=== PATIENT | female | born 1995 | race Caucasian/White ===

== ENCOUNTER 2023-06-17 10:45 | Outpatient (OUT) | payer BC, SELFPAY ==
[2023-06-17 11:30] LABS: Basophils Percent Auto 0.4 % (0.2-2.0); Eosinophils Absolute Auto 0.1 10^3/uL (0.0-0.7); Eosinophils Percent Auto 1.2 % (0.9-7.0); Estimated Average Glucose 103 mg/dL; Glycohemoglobin A1C 5.2 % (4.5-6.2); Hematocrit 42.6 % (36.0-48.0); Hemoglobin 14.6 g/dL (12.0-16.0); Immature Granulocytes Abs Auto 0.01 10^3/uL (0.00-0.03); Immature Granulocytes Pct Auto 0.2 % (0.0-0.5); Lymphocytes Absolute Auto 1.4 10^3/uL (1.2-3.8); Lymphocytes Percent Auto 26.5 % (20.5-60.0); Mean Corpuscular HGB Conc 34.3 g/dL (29.9-35.2); Mean Corpuscular Hemoglobin 31.9 pg (26.7-34.0); Mean Platelet Volume 10.9 fL (9.5-13.5); Monocytes Absolute Auto 0.3 10^3/uL (0.3-0.8); Monocytes Percent Auto 6.3 % (1.7-12.0); Neutrophils Absolute Auto 3.4 10^3/uL (1.4-6.5); Neutrophils Percent Auto 65.4 % (43.0-75.0); Platelet Count 287 10^3/uL (150-450); Red Blood Count 4.58 10^6/uL (4.20-5.40); Red Cell Distribution Width 12.4 % (11.0-15.0); White Blood Count 5.2 10^3/uL (4.0-11.0)
[2023-06-17 12:00] LABS: Alanine Aminotransferase 22 U/L (14-59); Albumin Globulin Ratio 1.1; Albumin Level 4.1 g/dL (3.4-5.0); Alkaline Phosphatase 81 U/L (46-116); Anion Gap 12.5; Aspartate Amino Transferase 19 U/L (15-37); BUN Creatinine Ratio 14.5; Bilirubin Total 0.4 mg/dL (0.2-1.0); C Reactive Protein <0.2 mg/dL (<=1.0); Calcium 9.1 mg/dL (8.5-10.1); Carbon Dioxide 26.3 mmol/L (21.0-32.0); Chloride 104 mmol/L (98-107); Chol HDL Ratio 2.7; Cholesterol 138 mg/dL (<=200); Estimated GFR (African America >60 (>=60); Estimated GFR (Non-African Ame >60 (>=60); Free T3 3.08 pg/mL (2.18-3.98); Globulin 3.6 g/dL; Glucose 87 mg/dL (74-106); HDL Cholesterol 51 mg/dL (40-60); LDL Cholesterol Calculated 78.6 mg/dL; Potassium 3.8 mmol/L (3.5-5.1); Sodium 139 mmol/L (136-145); Thyroid Stimulating Hormone 1.158 uIU/mL (0.358-3.740); Total Protein 7.7 g/dL (6.4-8.2); Triglycerides 42 mg/dL (<=150); Uric Acid 4.7 mg/dL (2.6-6.0); VLDL CHOLESTEROL 8.4 mg/dL
[2023-06-18 06:09] LABS: Antistreptolysin O Ab 89.3 IU/mL (0.0-200.0)
[2023-06-18 10:09] LABS: Insulin 6.9 uIU/mL (2.6-24.9)
[2023-06-18 12:11] LABS: ANA Direct Negative (Negative); Anti-DNA (DS) Ab Qn <1 IU/mL (0-9); Antichromatin Antibodies <0.2 AI (0.0-0.9); RNP Antibodies <0.2 AI (0.0-0.9); Rheumatoid Factor (RF) <10.0 IU/mL (<14.0); Sjogren's Anti-SS-A 0.2 AI (0.0-0.9); Sjogren's Anti-SS-B <0.2 AI (0.0-0.9)
== END 2023-06-17 10:46 | disposition home or self-care (01) ==
LOC: LAB 10:50
PROVIDERS: PCP Family Medicine; Visit Provider Family Medicine
DX: I10 Essential (primary) hypertension (principal); K21.9 Gastro-esophageal reflux disease without esophagitis; M25.50 Pain in unspecified joint; F41.9 Anxiety disorder, unspecified; R73.09 Other abnormal glucose; E78.5 Hyperlipidemia, unspecified; D64.9 Anemia, unspecified; E55.9 Vitamin D deficiency, unspecified
CPT/HCPCS: 36415; 80053; 80061; 82306; 83036; 83525; 83540; 84436; 84443; 84481; 84550; 85025; 86060; 86140; 86430; 86431

== ENCOUNTER 2023-09-11 09:43 | Outpatient (OUT) | payer BC, SELFPAY ==
--- NOTE | 2023-09-11 14:39 | CA_ITS ---
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: : 1995 Requested By: LYLY YOUSIF Order Number: [id number] Reading MD: SHANTEL WATSON Interpretive Statements Predominant rhythm is sinus with average rate of 79 bpm Tachycardia - max rate of 144 bpm (sinus tachycardia) - longest episode of 8min 2sec with rates between 108-109 bpm Bradycardia - min rate of 46 bpm - longest episode of 4min w/ rates between 48-56 bpm Ventricular ectopy - 314 total (<1%) - 300 PVC - 14 couplets Patiet triggered events: 2 - not associated with symptoms - associated w/ NSR Impression: Predominant rhythm is sinus with average rate of 79 bpm Fastest rate of 144 bpm (sinus tachycardia) and slowest rate of 46 bpm 300 PVC, 14 couplets No atrial fib No blocks or pauses Electronically Signed On 10-06-2023 22:44:56 EST by SHANTEL WATSON
== END 2023-09-11 09:44 | disposition home or self-care (01) ==
LOC: CARD 09:44
PROVIDERS: PCP Family Medicine; Visit Provider Family Medicine
DX: R00.2 Palpitations (principal)
CPT/HCPCS: 93246

== ENCOUNTER 2023-09-18 08:30 | Outpatient (OUT) | payer BC, SELFPAY ==
--- NOTE | 2023-09-18 08:33 | US_ITS ---
[place] [id number] Patient Name: RACHEAL CARVALHO MRN: [id number] date: 1995 Sex: F Assigned Patient Location: Current Patient Location: Accession/Order Number: [id number] Exam Date: 09/18/2023 08:33 Report Date: 09/19/2023 00:15 At the request of: ROBBIN SCHWARTZ Procedure: US OB transvaginal EXAMINATION: US OB transvaginal HISTORY: MISSED MENSES COMPARISON: No relevant comparison available. FINDINGS: GESTATIONAL SAC: Present and normal appearing. YOLK SAC: Present and normal appearing. POLE: Present and normal appearing. CARDIAC: Present. UTERUS: Normal size and appearance. OVARIES: Right: Normal. Left: Normal. CERVIX: 4.6 cm in length and closed. CUL-DE-SAC: Trace amount of free fluid. OTHER: None. AGE BY LMP: 11 weeks 2 days BEBE BY LMP: 04/06/2024 AGE BY US CRL: 8 weeks 2 days BEBE BY US CRL: 04/27/2024 US/US OB transvaginal IMPRESSION: 1. Single live intrauterine . Electronically authenticated by: CHELSEA SCHULTE Date: 09/19/2023 00:15
--- OUTSIDE RECORDS SUMMARY | 2023-09-18 08:33 | XMS_ITS | CCD ---
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 Process Name Role Phone REQUEST, DR NONE LISTED Primary Care Unavailmahnaz ARVIZU, DR RAMONA Ramirez Admitting Unavailable NOLBERTO, DR RAMONA Ramirez Attending Unavailable NOLBERTO, DR RAMONA Ramirez Consulting Unavailable FEI ., HILDA ORTEGA Consulting UnavailYessenia Sethi Consulting Unavailable EFREN ., DR SIEGEL Admitting Unavailable EFREN ., DR SIEGEL Attending Unavailable REQUEST, NONE LISTED Primary Care Unavailmahnaz SCHWARTZ ., DR SIEGEL Consulting Unavailable Valeria Claros Unavailable ROMINA NELSON Attending Unavailable LYLY YOUSIF Referring Unavailable Allergies Allergy Classification Reported Allergen(s) Allergy Type Date of Onset Reaction(s) Facility (1 source) Raspberry Propensity to adverse reactions tingles, and itches [facility] Other Medications Current Medications Medication Drug Class(es) Dates Sig (Normalized) Sig (Original) methylPREDNISolone 4 mg oral tablet (1 source) Corticosteroid Start: 3 methylPREDNISolone 4 MG as directed Orally for daily dose take half with breakfast, half with dinner for 6 days May, Active Problems Problem Classification Problem Date Documented Da te Episodic/Chronic Abdominal pain (1 source) Upper abdominal pain; Translations: [Upper abdominal pain, unspecified] Episodic Endometriosis (1 source) Endometriosis (clinical); Translations: [Endometriosis, unspecified] Chronic Esophageal disorders (1 source) Gastroesophageal reflux disease without esophagitis; Translations: [Gastro-esophageal reflux disease without esophagitis] Chronic Genitourinary congenital anomalies (1 source) Polycystic kidney, unspecified; Translations: [POLYCYSTIC KIDNEY UNSPECIFIED] Onset: 2 Chronic Headache; including migraine (4 sources) Headache; including migraine; Translations: [HEADACHE UNSPECIFIED] Onset: 2 Immunizations and screening for infectious disease (1 source) Encounter for screening for human papillomavirus (HPV); Translations: [ENC SCREENING HUMAN PAPILLOMAVIRUS] Onset: 3 Episodic Other gastrointestinal disorders (1 source) Irritable bowel syndrome characterized by constipation; Translations: [Irritable bowel syndrome with constipation] Chronic Other gastrointestinal disorders (1 source) Constipation alternates with diarrhea; Translations: [Other specified symptoms and signs involving the digestive system and abdomen] Episodic Other gastrointestinal disorders (1 source) Constipation; Translations: [Constipation, unspecified] Episodic Other nutritional; endocrine; and metabolic disorders (1 source) Unintentional weight loss; Translations: [Abnormal weight loss] Episodic Other screening for suspected conditions (not mental disorders or infectious disease) (4 sources) Encounter for screening for malignant neoplasm of cervix; Translations: [ENC SCREENING MALIG NEOPLASM CERV] Onset: 3 Episodic Poisoning by nonmedicinal substances (1 source) Toxic effect of venom of bees, accidental (unintentional), initial encounter Episodic Results Test Name Value Interpretation Reference Range Facility PAP ACOG PANEL 2: 21 to 29on 12-24-2022 . . Normal [facility] Comment on above: Performed By: #### [id number] #### [facility] [address] [address] [address] Narendra Franks Age Gdln ACOG Testing [facility] Comment on above: Performed By: #### [id number] #### [facility] [address] [address] [address] Narendra Franks DIAGNOSIS: Comment [facility] Comment on above: Result Comment: NEGA TIVE FOR INTRAEPITHELIAL LESION OR MALIGNANCY. Performed By: #### [id number] #### [facility] [address] [address] [address] Narendra Franks Methodology: Comment [facility] Comment on above: Result Comment: This liquid based ThinPrep(R) pap test was screened with the use of an image guided system. Performed By: #### [id number] #### [facility] [address] [address] [address] Narendra Franks Note: Comment [facility] Comment on above: Result Comment: The Pap smear is a screening test designed to aid in the detection of premalignant and malignant conditions of the uterine cervix. It is not a diagnostic procedure and should not be used as the sole means of detecting cervical cancer. Both false-positive and false-negative reports do occur. . Performed By: #### [id number] #### [facility] [address] [place] [address] Dr. Narendra Franks Performed by: Comment Normal [facility] Comment on above: Result Comment: Dhruv Smith, Wireless Technician (ASCP) Performed By: #### [id number] #### [facility] [address] [place] [address] Dr. Narendra Franks Reflex Criteria: Comment Normal [facility] Comment on above: Result Comment: The HPV DNA reflex criteria were not met with this specimen result therefore, no HPV testing was performed. . Performed By: #### [id number] #### [facility] [address] [place] [address] Dr. Narendra Franks Specimen adequacy: Comment Normal [facility] Comment on above: Result Comment: Sati sfactory for evaluation. Endocervical and/or squamous metaplastic cells (endocervical component) are present. Performed By: #### [id number] #### [facility] [address] [place] [address] Dr. Narendra Franks CBC AUTO DIFFon 06-26-2022 BASO # 0.0 103/ul Normal 0.0-0.1 [facility] Comment on above: Performed By: #### C BC #### [facility] [address] [place] [address] Dr. Narendra Franks Basophils/100 WBC (Bld) 0.4 % Normal 0.2-2.0 [facility] Comment on above: Performed By: #### C BC #### [facility] [address] [place] [address] Dr. Narendra Franks EO # 0.3 103/ul Normal 0.0-0.7 [facility] Comment on above: Performed By: #### C BC #### [facility] [address] [place] [address] Dr. Narendra Franks Eosinophils/100 WBC (Bld) 3.5 % Normal 0.9-7.0 [facility] Comment on above: Performed By: #### C BC #### [facility] [address] [place] [address] Dr. Narendra Franks Erythrocyte distribution width (RBC) [Ratio] 14.1 % Normal 11.0-15.0 [facility] Comment on above: Performed By: #### C BC #### [facility] [address] [place] [address] Dr. Narendra Franks Hematocrit (Bld) [Volume fraction] 38.2 % Normal 36.0-48.0 [facility] Comment on above: Performed By: #### C BC #### [facility] [address] [place] [address] Dr. Narendra rFanks Hemoglobin (Bld) [Mass/Vol] 12.6 g/dL Normal 12.0-16.0 [facility] Comment on above: Performed By: #### C BC #### [facility] [address] [place] [address] Dr. Narendra Franks IG # 0.01 10e3/ul Normal 0.00-0.03 [facility] Comment on above: Performed By: #### C BC #### [facility] [address] [place] [address] Dr. Narendra Franks IG % 0.1 % Normal 0.0-0.5 [facility] Comment on above: Performed By: #### C BC #### [facility] [address] [place] [address] Dr. Narendra Franks LYMPH # 2.4 103/ul Normal 1.2-3.8 [facility] Comment on above: Performed By: #### C BC #### [facility] [address] [place] [address] Dr. Narendra Franks Lymphocytes/100 WBC (Bld) 30.4 % Normal 20.5-60.0 [facility] Comment on above: Performed By: #### C BC #### [facility] [address] [place] [address] Dr. Narendra Franks MANUAL DIFF REQ NO Normal [facility] Comment on above: Performed By: #### C BC #### [facility] [address] [place] [address] Dr. Narendra Franks MCH (RBC) [Entitic mass] 30.4 pg Normal 26.7-34.0 [facility] Comment on above: Performed By: #### C BC #### [facility] [address] [place] [address] Dr. Narendra Franks MCHC (RBC) [Mass/Vol] 33.0 g/dL Normal 29.9-35.2 [facility] Comment on above: Performed By: #### C BC #### [facility] [address] [place] [address] Dr. Narendra Franks MCV (RBC) [Entitic vol] 92.0 fL Normal 81.0-99.0 [facility] Comment on above: Performed By: #### C BC #### [facility] [address] [place] [address] Dr. Narendra Franks MONO # 0.5 103/ul Normal 0.3-0.8 [facility] Comment on above: Performed By: #### C BC #### [facility] [address] [place] [address] Dr. Narendra Franks Monocytes/100 WBC (Bld) 6.3 % Normal 1.7-12.0 [facility] Comment on above: Performed By: #### C BC #### [facility] [address] [place] [address] Dr. Narendra Franks NEUT # 4.7 103/ul Normal 1.4-6.5 [facility] Comment on above: Performed By: #### C BC #### [facility] [address] [place] [address] Dr. Narendra Franks Neutrophils/100 WBC (Bld) 59.3 % Normal 43.0-75.0 [facility] Comment on above: Performed By: #### C BC #### [facility] [address] [place] [address] Dr. Narendra Franks Platelet mean volume (Bld) [Entitic vol] 10.5 fL Normal 9.5-13.5 [facility] Comment on above: Performed By: #### C BC #### [facility] [address] [address] [address] Narendra Franks PLT 272 103/ul Normal 150-450 [facility] Comment on above: Performed By: #### C BC #### [facility] [address] [place], [place] [address] Dr. Narendra Franks RBC 4.15 106/ul Critically low 4.20-5.40 [facility] Comment on above: Performed By: #### C BC #### [facility] [address] [address] [address] Narendra Franks WBC 8.0 103/ul Normal 4.0-11.0 [facility] Comment on above: Performed By: #### C BC #### [facility] [id number] Narendra Franks CRPon 06-26-2022 CRP [Mass/Vol] mg/L Normal <=1.0 [facility] Comment on above: Performed By: #### C RP #### [facility] [address] [address] [address] CSPINE WO CONon CT CSPINE WO CON INDICATION: 26 years old; Female. Headache and ear pain for 6 days. TECHNIQUE: CT Head (ax/cor/sag reformats). Ionizing radiation dose reduced via iterative reconstruction/FBP blend and body size kV/mA adjustment. Comparison: None FINDINGS: POSTOPERATIVE CHANGES: None. BRAIN PARENCHYMA: No hemorrhage, mass or acute infarct. Normal morales/white differentiation. VENTRICLES/EXTRA-AXIAL SPACES: Normal in size for patient's age. SINUSES/MASTOIDS: Visualized sinuses are clear. Mastoids and middle ears are clear. MSK: No displaced or depressed calvarial fracture is noted. OTHER: No hyperdense intraluminal thrombus is seen. TECHNIQUE: CT imaging of the cervical spine was performed. IV contrast: None. Dose reduction techniques were achieved by using automated exposure control and/or adjustment of mA and/or kV according to patient size and/or use of iterative reconstruction technique. COMPARISON: None available. FINDINGS: POSTOPERATIVE CHANGES: None. ALIGNMENT: There is nonspecific straightening and reversal the normal cervical curve. COMPRESSION FRACTURES: No fracture or vertebral body collapse is seen. No bone displacement is seen. No asymmetric widening of the facets is noted. PREVERTEBRAL SOFT TISSUES: Normal. CRANIOCERVICAL JUNCTION: There is a normal relationship of the occipital condyles, lateral masses of C1, and articular surfaces of C2. The base of the dens and body of C2 are intact. Predental space. POSTERIOR FOSSA: Cervical tonsils are above the foramen magnum. Disc levels: C2-C3: No disc herniation. No spinal canal or foraminal narrowing. C3-C4: No disc herniation. No spinal canal or foraminal narrowing. C4-C5: No disc herniation. No spinal canal or foraminal narrowing. C5-C6: Beam hardening artifacts are noted. The bony canal is patent. C6-C7: Beam hardening artifacts are noted. The bony canal is patent. C7-T1: Beam hardening artifacts are noted. The bony canal is patent. UPPER THORACIC SPINE: Not included in this examination. OTHER: There is inhomogeneous density and hypodense nodules present in the right lobe of the thyroid. There is a nodule measuring 5.7 x 4.94 mm in diameter and a hypodense nodule measuring 8.91 x 12.17 mm in diameter. Further evaluation with nonemergent thyroid ultrasound is recommended. IMPRESSION: 1. No acute intracranial abnormality. No hemorrhage or mass effect. 2. No cervical fracture or bone displacement. No focal disc herniation or bony stenosis. 3. Hypodense nodules present in the right lobe of the thyroid. Nonemergent thyroid ultrasound is recommended. Electronically authenticated by: YESSENIA HICKEY Date: 2022-06-26 21:58 Normal [facility] MONOon 06-26-2022 Monocytes (Bld) [#/Vol] Negative Normal NEGATIVE [facility] Comment on above: Performed By: #### M MORGAN PREG #### [facility] [address] [address] [address] Narendra Franks PREG HCG QUALon 06-26-2022 , QUAL Negative Normal NEGATIVE [facility] Comment on above: Performed By: #### M MORGAN PREG #### [facility] [address] [address] [address] Narendra Franks PROF CHEM 8 (BAS METB)on Anion gap [Moles/Vol] 9.8 mmol/L Normal [facility] Comment on above: Performed By: #### B MP #### [facility] [address] [place] [address] Dr. Narendra Franks Calcium [Mass/Vol] 8.5 mg/dL Normal 8.5-10.1 [facility] Comment on above: Performed By: #### B MP #### [facility] [address] [address] [address] Narendra Franks Chloride [Moles/Vol] 104 mmol/L Normal 98-107 [facility] Comment on above: Performed By: #### B MP #### [facility] [address] [place] [address] Dr. Narendra Franks CO2 [Moles/Vol] 28.0 mmol/L Normal 21.0-32.0 [facility] Comment on above: Performed By: #### B MP #### [facility] [address] [place] [address] Dr. Narendra Franks Creatinine [Mass/Vol] 0.77 mg/dL Normal 0.55-1.02 [facility] Comment on above: Performed By: #### B MP #### [facility] [address] [place] [address] Dr. Narendra Franks EGFR-AF DANISH >60 Normal >=60 [facility] Comment on above: Performed By: #### B MP #### [facility] [address] [address] [address] Narendra Franks EGFR-NON AF DANISH >60 Normal >=60 [facility] Comment on above: Performed By: #### B MP #### [facility] [address] [place] [address] Dr. Narendra Franks Glucose [Mass/Vol] 90 mg/dL Normal 74-106 [facility] Comment on above: Performed By: #### B MP #### [facility] [address] [address] [address] Narendra Franks Potassium [Moles/Vol] 3.8 mmol/L Normal 3.5-5.1 [facility] Comment on above: Performed By: #### B MP #### [facility] [address] [place] [address] Dr. Narendra Franks Sodium [Moles/Vol] 138 mmol/L Normal 136-145 [facility] Comment on above: Performed By: #### B MP #### [facility] [address] [address] [address] Narendra Franks Urea nitrogen [Mass/Vol] 15.0 mg/dL Normal 7.0-18.0 [facility] Comment on above: Performed By: #### B MP #### [facility] [address] [place] [address] Dr. Narendra Franks Urea nitrogen/Creatinine [Mass ratio] 19.5 mg/mg Normal [facility] Comment on above: Performed By: #### B MP #### [facility] [address] [place] [address] Dr. Narendra Franks SED RATE [facility] 2021 SED RATE 25 mm/hr Critically high <=20 [facility] Comment on above: Performed By: #### S EDR #### [facility] [address] [place] [address] Dr. Narendra Franks CYNTHIA WITH REFLEX TO ENAon CYTNHIA WITH REFLEX TO ANYI Negative Normal NEGATIVE [facility] Comment on above: Performed By: #### A NA #### [facility] [id number] [place] [address] C-REACTIVE PROTEINon 019 CRP [Mass/Vol] mg/L Normal [facility] Comment on above: Result Comment: REF VALUE < 1.00 Performed By: #### C RP #### [facility] [address] [place] [address] CITRULLINE ANTIBODYon 2018 CITRULLINE ANTIBODY <1 Normal [facility] Comment on above: Result Comment: THE TEST FOR ANTIBODIES SPECIFIC FOR CYCLIC CITRULLINATED PEPTIDE (CCP) HAS SHOWN TO BE VALUABLE IN THE DIAGNOSIS OF RHEUMATOID ARTHRITIS. THE DIAGNOSTIC VALUE OF ANTIBODIES TO CCP IN JUVENILE RHEUMATOID ARTHRITIS PATIENTS HAS NOT BEEN DETERMINED. ANTIBODIES TO CENTROMERE OR SS-A AND MYELOMA IGG MAY BE REACTIVE IN THIS ASSAY. REF VALUES NEGATIVE < 3 U/ML POSITIVE >=3 U/ML Performed By: #### C ITAB #### [facility] [address] [place] [address] HLA-B27 TYPINGon 04-29-2019 HLA-B27 TYPING Negative Normal [facility] Comment on above: Result Comment: This test was developed without FDA review. The test performance characteristics were defined and validated by the [facility] Department of Pathology, under the accreditation guidelines of [facility]. Performed By: #### H LB27 #### [facility] [address] [place] [address] RHEUMATOID FACTORon 04-29-20 19 RHEUMATOID FACTOR <10 Normal 0 - 15 [facility] Comment on above: Performed By: #### R F #### [facility] [address] [place] [address] SEDIMENTATION RATE, ERYTHROC YTEon 04-29-2019 SEDIMENTATION RATE, ERYTHROCYTE 2 mm/h Normal 0 - 20 [facility] Comment on above: Performed By: #### E SRWS #### [facility] [address] [place] [address] Vital Signs Date Time Vital Sign Value Performing Clinician Facility 06-06-2023 09:05-0400 Body height 170.18 cm Valeria Claros Other [facility] Other 06-06-2023 09:05-0400 Body mass index (BMI) [Ratio] 29.19 kg/m2 Valeria Claros Other [facility] Other 06-06-2023 09:05-0400 Body temperature 98.5 [degF] Valeria Claros Other [facility] Other 06-06-2023 09:05-0400 Body weight 84.55 kg Valeria Claros Other [facility] Other 06-06-2023 09:05-0400 Diastolic blood pressure 96 mm[Hg] Valeria Claros Other [facility] Other 06-06-2023 09:05-0400 Respiratory rate 18 /min Valeria Clarso Other [facility] Other 06-06-2023 09:05-0400 SaO2% (BldA) [Mass fraction] 98 % Valeria Claros Other [facility] Other 06-06-2023 09:05-0400 Systolic blood pressure 140 mm[Hg] Valeria Claros Other [facility] Other Encounters Encounter Date Encounter Type Care Provider Facility Start: 09-09-2023 End: 09-09-2023 ambulatory ROMINA NELSON Not Available Start: 06-06-2023 End: 06-06-2023 ambulatory Valeria Claros Other [facility] Other Start: 06-06-2023 Office outpatient ne w 20 minutes Valeria Claros [facility] Start: 12-17-2022 End: 12-17-[address] ROBBIN SCHWARTZ . Facility: Start: 06-26-2022 End: 06-27-2022 ambulatory NONE LISTED REQUEST Facility:[facility]1 Payers Date Payer Category Payer Unknown [id number] 1996 Unknown [id number] 1996 Unknown [id number] 1959 Unknown [id number] Social History Date Type Detail Facility Unknown if ever smoked [facility] Other Sex Assigned At Sex Assigned At Bir th [facility] Other Evaluation note 06-06-2023 Note Date & Type Note Facility 06-06-2023 Evaluation note Encounter Date Diagnosis Assessment Notes May, Local reaction to bee sting, accidental or unintentional, initial encounter (ICD-10 - T63.441A) Diagnosis with patient today in office. Advised patient that she is having local reaction to bee sting. There is no stinger present. We will send in Rx of steroid to use as directed. Advised patient to finish entire course, reviewed side effects of medication, take with food and plenty of water. Encouraged use of OTC Benadryl, ice application to area. Marked today in office. Patient to follow-up if signs/symptoms of infection occur including fever, red streaking, increase in size is noted. Patient verbalizes understanding and is agreeable with treatment plan [facility] Other History general Narrative - Reported Note Date & Type Note Facility History general Narrative - Reported Type Medical History polycystic kidneys Medical History Headache Medical History GERD Medical History HYPERTENSION Medical History ALLERGIC RHINITIS Medical History SLEEP APNEA Medical History endometriosis Medical History crohns borderline Surgical History tonsillectomy and adenoidectomy Surgical History fatty tumor removed off back Surgical History wisdom teeth extract Surgical History laparoscopic 2019 Surgical History colonoscopy 2019 Hospitalization History HTN Hospitalization History migraine Hospitalization History child 2020 [facility] Other Summary Purpose Family History No Family History Records FoundNo Family History Records FoundNo Family History Records Found Advance Directives No Advanced Directives Records FoundNo Advanced Directives Records FoundNo Advanced Directives Records Found Additional Source Comments INFORMATION SOURCE (unrecogn ized section and content) DATE CREATED AUTHOR 07/19/2019 [facility] DATE CREATED AUTHOR AUTHOR'S ORGANIZ ATION [facility]20[facility] DATE CREATED AUTHOR AUTHOR'S ORGANIZ ATION 09/11/2023 [facility] EPIC REASON FOR VISIT (unrecogniz ed section and content) bee sting right arm FOR RECORDS PERTAINING TO PATIENTS WHO ARE OR HAVE BEEN ENROLLED IN A CHEMICAL DEPENDENCY/SUBSTANCEABUSE PROGRAM, SOME INFORMATION MAY BE OMITTED. This clinical summary was aggregated from multiple sources. Caution should be exercised in using it in the provision of clinical care. This summary normalizes information from multiple sources, and as a consequence, information in this document may materially change the coding, format and clinical context of patient data. In addition, data may be omitted in some cases. CLINICAL DECISIONS SHOULD BE BASED ON THE PRIMARY CLINICAL RECORDS. [employer] [facility] provides no warranty or guarantee of the accuracy or completeness of information in this document.
== END 2023-09-18 08:31 | disposition home or self-care (01) ==
LOC: US 08:31
PROVIDERS: PCP Family Medicine; Visit Provider Obstetrics & Gynecology
DX: Z34.91 Encounter for supervision of normal pregnancy, unspecified, first trimester (principal); Z3A.08 8 weeks gestation of pregnancy; N92.6 Irregular menstruation, unspecified
CPT/HCPCS: 76817

== ENCOUNTER 2023-10-21 11:24 | Outpatient (OUT) | payer BC, SELFPAY ==
--- OUTSIDE RECORDS SUMMARY | 2023-10-21 11:28 | XMS_ITS | CCD ---
Author Name Unknown Address [address] [place] [address] Organization [facility] Care Team Providers Care Urban Anthropologist Name Role Phone REQUEST, DR NONE LISTED Primary Care Unavailmahnaz ARVIZU, DR RAMONA Ramirez Admitting Unavailable NOLBERTO, DR RAMONA Ramirez Attending Unavailable NOLBERTO, DR RAMONA Ramirez Consulting Unavailable FEI ., HILDA ORTEGA Consulting UnavailYessenia Sethi Consulting Unavailable EFREN ., DR SIEGEL Admitting Unavailable EFREN ., DR SIEGEL Attending Unavailable REQUEST, DR NONE LISTED Primary Care Unavailmahnaz SCHWARTZ ., DR SIEGEL Consulting Unavailable Valeria Claros Unavailable ROMINA NELSON Attending Unavailable LYLY YOUSIF Referring Unavailable ADELAIDE BOJORQUEZ Attending Unavailable LYLY YOUSIF Referring Unavailable Allergies Allergy Classification Reported Allergen(s) Allergy Type Date of Onset Reaction(s) Facility (1 source) Raspberry Propensity to adverse reactions tingles, and itches [facility] Other Medications Current Medications Medication Drug Class(es) [...] 22 to 29on 12-24-2022 . . Normal Comment on above: Performed By: #### [id number] #### [facility] [address] [place] [address] Dr. Narendra Franks Age Gdln ACOG Testing [facility] Comment on above: Performed By: #### [id number] #### [facility] [address] [address] [address] Narendra Franks DIAGNOSIS: Comment [facility] Comment on above: Result Comment: NEGA TIVE FOR INTRAEPITHELIAL LESION OR MALIGNANCY. Performed By: #### [id number] #### [facility] [address] [address] [address] Narendra Franks Methodology: Comment [facility] Comment on above: Result Comment: This liquid based ThinPrep(R) pap test was screened with the use of an image guided system. Performed By: #### [id number] #### [facility] [address] [address] [address] Narendra Franks Note: Comment [facility] Comment on above: Result Comment: The Pap smear is a screening test designed to aid in the detection of premalignant and malignant conditions of the uterine cervix. It is not a diagnostic procedure and should not be used as the sole means of detecting cervical cancer. Both false-positive and false-negative reports do occur. . Performed By: #### [id number] #### [facility] [address] [place] [address] Dr. Narendra Franks Performed by: Comment Normal [facility] Comment on above: Result Comment: Dhruv Smith, Press Hand (ASCP) Performed By: #### [id number] #### [facility] [address] [place] [address] Dr. Narendra Franks Reflex Criteria: Comment Normal [facility] Comment on above: Result Comment: The HPV DNA reflex criteria were not met with this specimen result therefore, no HPV testing was performed. . Performed By: #### [id number] #### [facility] [address] [place] [address] Dr. Narendra Franks Specimen adequacy: Comment Normal [facility] Comment on above: Result Comment: Sati sfactory for evaluation. Endocervical and/or squamous metaplastic cells (endocervical component) are present. Performed By: #### [id number] #### [facility] [address] [place] [address] Dr. Narendra Franks CBC AUTO DIFFon 06-26-2022 BASO # 0.0 103/ul Normal 0.0-0.1 Comment on above: Performed By: #### C BC #### [facility] [address] [place] [address] Dr. Narendra Franks Basophils/100 WBC (Bld) 0.4 % Normal 0.2-2.0 Comment on above: Performed By: #### C BC #### [facility] [address] [place] [address] Dr. Narendra Franks EO # 0.3 103/ul Normal 0.0-0.7 Comment on above: Performed By: #### C BC #### [facility] [address] [place] [address] Dr. Narendra Franks Eosinophils/100 WBC (Bld) 3.5 % Normal 0.9-7.0 [facility] Comment on above: Performed By: #### C BC #### [facility] [address] [place] [address] Dr. Narendra Franks Erythrocyte distribution width (RBC) [Ratio] 14.1 % Normal 11.0-15.0 [facility] Comment on above: Performed By: #### C BC #### [facility] [address] [place] [address] Dr. Narendra Franks Hematocrit (Bld) [Volume fraction] 38.2 % Normal 36.0-48.0 [facility] Comment on above: Performed By: #### C BC #### [facility] [address] [place] [address] Dr. Narendra Franks Hemoglobin (Bld) [Mass/Vol] 12.6 g/dL Normal 12.0-16.0 Comment on above: Performed By: #### C BC #### [facility] [address] [place] [address] Dr. Narendra Franks IG # 0.01 10e3/ul Normal 0.00-0.03 Comment on above: Performed By: #### C BC #### [facility] [address] [place] [address] Dr. Narendra Franks IG % 0.1 % Normal 0.0-0.5 [facility] Comment on above: Performed By: #### C BC #### [facility] [address] [place] [address] Dr. Narendra Franks LYMPH # 2.4 103/ul Normal 1.2-3.8 [facility] Comment on above: Performed By: #### C BC #### [facility] [address] [place] [address] Dr. Narendra Franks Lymphocytes/100 WBC (Bld) 30.4 % Normal 20.5-60.0 [facility] Comment on above: Performed By: #### C BC #### [facility] [address] [place] [address] Dr. Narendra Franks MANUAL DIFF REQ NO Normal [facility] Comment on above: Performed By: #### C BC #### [facility] [address] [place] [address] Dr. Narendra Franks MCH (RBC) [Entitic mass] 30.4 pg Normal 26.7-34.0 Comment on above: Performed By: #### C BC #### [facility] [address] [place] [address] Dr. Narendra Franks MCHC (RBC) [Mass/Vol] 33.0 g/dL Normal 29.9-35.2 [facility] Comment on above: Performed By: #### C BC #### [facility] [address] [place] [address] Dr. Narendra Franks MCV (RBC) [Entitic vol] 92.0 fL Normal 81.0-99.0 Comment on above: Performed By: #### C BC #### [facility] [address] [place] [address] Dr. Narendra Franks MONO # 0.5 103/ul Normal 0.3-0.8 Comment on above: Performed By: #### C BC #### [facility] [address] [place] [address] Dr. Narendra Franks Monocytes/100 WBC (Bld) 6.3 % Normal 1.7-12.0 [facility] Comment on above: Performed By: #### C BC #### [facility] [address] [place] [address] Dr. Narendra Franks NEUT # 4.7 103/ul Normal 1.4-6.5 [facility] Comment on above: Performed By: #### C BC #### [facility] [address] [place] [address] Dr. Narendra Franks Neutrophils/100 WBC (Bld) 59.3 % Normal 43.0-75.0 [facility] Comment on above: Performed By: #### C BC #### [facility] [address] [place] [address] Dr. Narendra Franks Platelet mean volume (Bld) [Entitic vol] 10.5 fL Normal 9.5-13.5 Comment on above: Performed By: #### C BC #### [facility] [address] [place] [address] Dr. Narendra Franks PLT 272 103/ul Normal 150-450 [facility] Comment on above: Performed By: #### C BC #### [facility] [address] [address] [address] Narendra Franks RBC 4.15 106/ul Critically low 4.20-5.40 [facility] Comment on above: Performed By: #### C BC #### [facility] [address] [place] [address] Dr. Narendra Franks WBC 8.0 103/ul Normal 4.0-11.0 [facility] Comment on above: Performed By: #### C BC #### [facility] [address] [place] [address] Dr. Narendra Franks CRPon 06-26-2022 CRP [Mass/Vol] mg/L Normal <=1.[address] [facility] Comment on above: Performed By: #### C RP #### [facility] [address] [place] [address] CSPINE WO CONon [...] YESSENIA HICKEY Date: 2022-06-26 21:58 Normal [facility] MONOon 06-26-2022 Monocytes (Bld) [#/Vol] Negative Normal NEGATIVE [facility] Comment on above: Performed By: #### M MORGAN PREG #### [facility] [address] [place] [address] Dr. Narendra Franks PREG HCG QUALon 06-26-2022 , QUAL Negative Normal NEGATIVE [facility] Comment on above: Performed By: #### M MORGAN, PREG #### [facility] [address] [address] [address] Narendra Franks PROF CHEM 8 (BAS METB)on Anion gap [Moles/Vol] 9.8 mmol/L Normal Comment on above: Performed By: #### B MP #### [facility] [address] [address] [address] Narendra Franks Calcium [Mass/Vol] 8.5 mg/dL Normal 8.5-10.1 [facility] Comment on above: Performed By: #### B MP #### [facility] [address] [address] [address] Narendra Franks Chloride [Moles/Vol] 104 mmol/L Normal 98-107 Comment on above: Performed By: #### B MP #### [facility] [address] [place] [address] Dr. Narendra Franks CO2 [Moles/Vol] 28.0 mmol/L Normal 21.0-32.0 [facility] Comment on above: Performed By: #### B MP #### [facility] [address] [address] [address] Narendra Franks Creatinine [Mass/Vol] 0.77 mg/dL Normal 0.55-1.02 Comment on above: Performed By: #### B MP #### [facility] [address] [place] [address] Dr. Narendra Franks EGFR-AF ALBANIAN >60 Normal >=60 [facility] Comment on above: Performed By: #### B MP #### [facility] [address] [address] [address] Narendra Franks EGFR-NON AF ALBANIAN >60 Normal >=60 [facility] Comment on above: Performed By: #### B MP #### [facility] [address] [place] [address] Dr. Narendra Franks Glucose [Mass/Vol] 90 mg/dL Normal 74-106 [facility] Comment on above: Performed By: #### B MP #### [facility] [address] [address] [address] Narendra Franks Potassium [Moles/Vol] 3.8 mmol/L Normal 3.5-5.1 Comment on above: Performed By: #### B MP #### [facility] [address] [address] [address] Narendra Franks Sodium [Moles/Vol] 138 mmol/L Normal 136-145 [facility] Comment on above: Performed By: #### B MP #### [facility] [address] [address] [address] Narendra Franks Urea nitrogen [Mass/Vol] 15.0 mg/dL Normal 7.0-18.0 Comment on above: Performed By: #### B MP #### [facility] [address] [address] [address] Narendra Franks Urea nitrogen/Creatinine [Mass ratio] 19.5 mg/mg Normal Comment on above: Performed By: #### B MP #### [facility] [address] [address] [address] Narendra Franks SED RATE [facility] 2021 SED RATE 25 mm/hr Critically high <=20 [facility] Comment on above: Performed By: #### S EDR #### [facility] [address] [place] [address] Dr. Narendra Franks CYNTHIA WITH REFLEX TO ENAon CYNTHIA WITH REFLEX TO ANYI Negative Normal NEGATIVE [facility] Comment on above: Performed By: #### A NA #### [facility] [id number] [place] [address] C-REACTIVE PROTEINon 019 CRP [Mass/Vol] mg/L Normal [facility] Comment on above: Result Comment: REF VALUE < 1.00 Performed By: #### C RP #### [facility] [id number] [place] [address] CITRULLINE ANTIBODYon 2018 CITRULLINE ANTIBODY <1 Normal [facility] Comment on above: Result Comment: THE TEST [...] U/ML Performed By: #### C ITAB #### [facility] [address] [place] [address] HLA-B27 TYPINGon 04-29-2019 HLA-B27 TYPING Negative Normal [facility] Comment on above: Result Comment: This test was developed without FDA review. The test performance characteristics were defined and validated by the [facility] Department of Pathology, under the accreditation guidelines of [facility]. Performed By: #### H LB27 #### [facility] [address] [place] [address] RHEUMATOID FACTORon 04-29-20 19 RHEUMATOID FACTOR <10 Normal 0 - 15 [facility] Comment on above: Performed By: #### R F #### [facility] [address] [place] [address] SEDIMENTATION RATE, ERYTHROC YTEon 04-29-2019 SEDIMENTATION RATE, ERYTHROCYTE 2 mm/h Normal 0 - 20 [facility] Comment on above: Performed By: #### E SRWS #### [facility] [address] [place] [address] Vital Signs Date Time Vital Sign Value Performing Clinician Facility 06-06-2023 09:05-0400 Body height 170.18 cm Valeria Claros Other [facility] Other 06-06-2023 09:05-0400 Body mass index (BMI) [Ratio] 29.19 kg/m2 Valeria Claros Other [facility] Other 06-06-2023 09:05-0400 Body temperature 98.5 [degF] Valeria Claros Other [facility] Other 06-06-2023 09:05-0400 Body weight 84.55 kg Valeria Claros Other [facility] Other 06-06-2023 09:05-0400 Diastolic blood pressure 96 mm[Hg] Valeria Claros Other [facility] Other 06-06-2023 09:05-0400 Respiratory rate 18 /min Valeria Claros Other [facility] Other 06-06-2023 09:05-0400 SaO2% (BldA) [Mass fraction] 98 % Valeria Claros Other [facility] Other 06-06-2023 09:05-0400 Systolic blood pressure 140 mm[Hg] Valeria Claros Other [facility] Other Encounters Encounter Date Encounter Type Care Provider Facility Start: 09-18-2023 End: 09-18-2023 ambulatory ROMINA NELSON Not Available Start: 09-14-2023 End: 09-14-2023 ambulatory ADELAIDE BOOJRQUEZ Not Available Start: 09-09-2023 End: 09-09-2023 ambulatory ROMINA NELSON Not Available Start: 06-06-2023 End: 06-06-2023 ambulatory Valeria Claros Other [facility] Other Start: 06-06-2023 Office outpatient ne w 20 minutes Valeria Claros [facility] Start: 12-17-2022 End: 12-17-[address] ROBBIN SCHWARTZ . Facility:[facility] Start: 06-26-2022 End: 06-27-2022 ambulatory NONE LISTED REQUEST Facility:[facility] Payers Date Payer Category Payer Unknown [id number] [id number] [id number] 1996 Unknown [id number] 2.16.84 [id number] 1996 Unknown [id number] 1996 Unknown [id number] 1996 Unknown [id number] 1959 Unknown [id number] Social History Date Type Detail Facility Unknown if ever smoked [facility] Other Sex Assigned At Sex Assigned At Bir th [facility] Other Evaluation note 06-06-2023 Note Date & [...] understanding and is agreeable with treatment plan [facility] Other History general Narrative - Reported Note [...] Hospitalization History migraine Hospitalization History child 2020 [facility] Other Summary Purpose Family History No Family History Records FoundNo Family History Records FoundNo Family History Records Found Advance Directives No Advanced Directives Records FoundNo Advanced Directives Records FoundNo Advanced Directives Records Found Additional Source Comments INFORMATION SOURCE (unrecogn ized section and content) DATE CREATED AUTHOR 07/19/2019 [facility] DATE CREATED AUTHOR AUTHOR'S ORGANIZ ATION 12/29/2022 [facility] DATE CREATED AUTHOR AUTHOR'S ORGANIZ ATION 09/19/2023 [facility] REASON FOR VISIT (unrecogniz ed section and [...] BE BASED ON THE PRIMARY CLINICAL RECORDS. [employer] provides no warranty or guarantee of the accuracy or completeness of information in this document.
[2023-10-21 12:12] LABS: Estimated Average Glucose 100 mg/dL; Glycohemoglobin A1C 5.1 % (4.5-6.2)
[2023-10-21 12:16] LABS: Basophils Percent Auto 0.2 % (0.2-2.0); Eosinophils Absolute Auto 0.1 10^3/uL (0.0-0.7); Eosinophils Percent Auto 0.8 % (0.9-7.0); Hematocrit 40.1 % (36.0-48.0); Hemoglobin 13.9 g/dL (12.0-16.0); Immature Granulocytes Abs Auto 0.02 10^3/uL (0.00-0.03); Immature Granulocytes Pct Auto 0.2 % (0.0-0.5); Lymphocytes Absolute Auto 1.8 10^3/uL (1.2-3.8); Lymphocytes Percent Auto 21.1 % (20.5-60.0); Mean Corpuscular HGB Conc 34.7 g/dL (29.9-35.2); Mean Corpuscular Hemoglobin 32.1 pg (26.7-34.0); Mean Corpuscular Volume 92.6 fL (81.0-99.0); Mean Platelet Volume 10.7 fL (9.5-13.5); Monocytes Absolute Auto 0.4 10^3/uL (0.3-0.8); Monocytes Percent Auto 5.2 % (1.7-12.0); Neutrophils Absolute Auto 6.1 10^3/uL (1.4-6.5); Neutrophils Percent Auto 72.5 % (43.0-75.0); Platelet Count 263 10^3/uL (150-450); Red Blood Count 4.33 10^6/uL (4.20-5.40); Red Cell Distribution Width 13.1 % (11.0-15.0); White Blood Count 8.5 10^3/uL (4.0-11.0)
[2023-10-21 12:48] LABS: Thyroid Stimulating Hormone 2.621 uIU/mL (0.358-3.740)
[2023-10-22 04:08] LABS: HBsAg Screen Negative (Negative); HCV Ab Non Reactive (Non Reactive); HIV Ab/p24 Ag Screen Non Reactive (Non Reactive)
[2023-10-22 09:09] LABS: Rapid Plasma Reagin, Quant Non Reactive titer (NonRea<1:1)
== END 2023-10-21 11:25 | disposition home or self-care (01) ==
LOC: LAB 11:26
PROVIDERS: PCP Family Medicine; Visit Provider Obstetrics & Gynecology
DX: Z36.0 Encounter for antenatal screening for chromosomal anomalies (principal); N92.6 Irregular menstruation, unspecified
CPT/HCPCS: 36415; 83036; 84443; 85025; 86592; 86762; 86803; 86850; 86900; 86901; 87086; 87340; 87389

== ENCOUNTER 2023-11-30 17:31 | Emergency (ER) | payer BC, SELFPAY ==
[2023-11-30 17:39] VITALS: BP 132/70; PULSE 85; RESP 16; TEMP 37.1; O2SAT 98; BMI 29.3
--- OUTSIDE RECORDS SUMMARY | 2023-11-30 17:52 | XMS_ITS | CCD ---
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 Name Role Phone REQUEST, DR NONE LISTED [...] DR SIEGEL Consulting Unavailable Valeria Claros Unavailable ROBBIN SCHWARTZ Attending Unavailable ROBBIN SCHWARTZ Attending Unavailable ROMINA NELSON Attending Unavailable LYLY YOUSIF Referring Unavailable ADELAIDE BOJORQUEZ Attending Unavailable LYLY YOUSIF Referring Unavailable Allergies Allergy Classification Reported Allergen(s) Allergy Type Date of Onset Reaction(s) Facility (1 source) Jorden Propensity to adverse reactions tingles, and itches [facility] Other Medications Current Medications Medication Drug Class(es) [...] 21 to 29on 12-24-2022 . . Normal [facility] Comment on above: Performed By: #### [id number] #### [facility] [address] [address] [address] Narendra Franks Age Gdln ACOG Testing [facility] Comment on above: Performed By: #### [id number] #### [facility] [address] [address] [address] Narendra Franks DIAGNOSIS: Comment [facility] Comment on above: Result Comment: NEGA TIVE FOR INTRAEPITHELIAL LESION OR MALIGNANCY. Performed By: #### [id number] #### [facility] [address] [address] [address] Narendra Franks Methodology: Comment [facility] Comment on above: Result Comment: This liquid based ThinPrep(R) pap test was screened with the use of an image guided system. Performed By: #### [id number] #### [facility] [address] [place] [address] Dr. Narendra Franks Note: Comment Normal [facility] Comment on above: Result Comment: The Pap smear is a screening test designed to aid in the detection of premalignant and malignant conditions of the uterine cervix. It is not a diagnostic procedure and should not be used as the sole means of detecting cervical cancer. Both false-positive and false-negative reports do occur. . Performed By: #### [id number] #### [facility] [address] [place] [address] Dr. Narendra Franks Performed by: Comment Normal [facility] Comment on above: Result Comment: Dhruv Smith, Inspector [employer] (ASCP) Performed By: #### [id number] #### [facility] [address] [place] [address] Dr. Narendra Franks Reflex Criteria: Comment Normal [facility] Comment on above: Result Comment: The HPV DNA reflex criteria were not met with this specimen result therefore, no HPV testing was performed. . Performed By: #### [id number] #### [facility] [address] [place] [address] Dr. Narendra Franks Specimen adequacy: Comment Normal [facility] Comment on above: Result Comment: Sati sfactory for evaluation. Endocervical and/or squamous metaplastic cells (endocervical component) are present. Performed By: #### [id number] #### [facility] [address] [place] [address] Dr. Narendra Franks CBC AUTO DIFFon 06-26-2022 BASO # 0.0 103/ul Normal 0.0-0.1 [facility] Comment on above: Performed By: #### C BC #### [facility] [address] [place] [address] Dr. Narendra Franks Basophils/100 WBC (Bld) 0.4 % Normal 0.2-2.0 [facility] Comment on above: Performed By: #### C BC #### [facility] [address] [place] [address] Dr. Narendra Franks EO # 0.3 103/ul Normal 0.0-0.7 [facility] Comment on above: Performed By: #### C BC #### [facility] [address] [place] [address] Dr. Narendra Franks Eosinophils/100 WBC (Bld) 3.5 % Normal 0.9-7.0 [facility] Comment on above: Performed By: #### C BC #### [facility] [address] [place] [address] Dr. Narendra Franks Erythrocyte distribution width (RBC) [Ratio] 14.1 % Normal 11.0-15.0 [facility] Comment on above: Performed By: #### C BC #### [facility] [address] [place] [address] Dr. Narendra Franks Hematocrit (Bld) [Volume fraction] 38.2 % Normal 36.0-48.0 [facility] Comment on above: Performed By: #### C BC #### [facility] [address] [place] [address] Dr. Narendra Franks Hemoglobin (Bld) [Mass/Vol] 12.6 g/dL Normal 12.0-16.0 [facility] Comment on above: Performed By: #### C BC #### [facility] [address] [place] [address] Dr. Narendra Franks IG # 0.01 10e3/ul Normal 0.00-0.03 [facility] Comment on above: Performed By: #### C BC #### [facility] [address] [place] [address] Dr. Narendra Franks IG % 0.1 % Normal 0.0-0.5 [facility] Comment on above: Performed By: #### C BC #### [facility] [address] [place] [address] Dr. Narendra Franks LYMPH # 2.4 103/ul Normal 1.2-3.8 [facility] Comment on above: Performed By: #### C BC #### [facility] [address] [place] [address] Dr. Narendra Franks Lymphocytes/100 WBC (Bld) 30.4 % Normal 20.5-60.0 [facility] Comment on above: Performed By: #### C BC #### [facility] [address] [place] [address] Dr. Narendra Franks MANUAL DIFF REQ NO Normal [facility] Comment on above: Performed By: #### C BC #### [facility] [address] [place] [address] Dr. Narendra Franks MCH (RBC) [Entitic mass] 30.4 pg Normal 26.7-34.0 [facility] Comment on above: Performed By: #### C BC #### [facility] [address] [place] [address] Dr. Narendra Franks MCHC (RBC) [Mass/Vol] 33.0 g/dL Normal 29.9-35.2 [facility] Comment on above: Performed By: #### C BC #### [facility] [address] [place] [address] Dr. Narendra Franks MCV (RBC) [Entitic vol] 92.0 fL Normal 81.0-99.0 [facility] Comment on above: Performed By: #### C BC #### [facility] [address] [place] [address] Dr. Narendra Franks MONO # 0.5 103/ul Normal 0.3-0.8 [facility] Comment on above: Performed By: #### C BC #### [facility] [address] [place] [address] Dr. Narendra Franks Monocytes/100 WBC (Bld) 6.3 % Normal 1.7-12.0 [facility] Comment on above: Performed By: #### C BC #### [facility] [address] [place] [address] Dr. Narendra Franks NEUT # 4.7 103/ul Normal 1.4-6.5 [facility] Comment on above: Performed By: #### C BC #### [facility] [address] [place] [address] Dr. Narendra Franks Neutrophils/100 WBC (Bld) 59.3 % Normal 43.0-75.0 [facility] Comment on above: Performed By: #### C BC #### [facility] [address] [address] [address] Narendra Franks Platelet mean volume (Bld) [Entitic vol] 10.5 fL Normal 9.5-13.5 [facility] Comment on above: Performed By: #### C BC #### [facility] [address] [address] [address] Narendra Franks PLT 272 103/ul Normal 150-450 [facility] Comment on above: Performed By: #### C BC #### [facility] [address] [address] [address] Narendra Franks RBC 4.15 106/ul Critically low 4.20-5.40 [facility] Comment on above: Performed By: #### C BC #### [facility] [address] [place] [address] Dr. Narendra Franks WBC 8.0 103/ul Normal 4.0-11.0 [facility] Comment on above: Performed By: #### C BC #### [facility] [address] [place] [address] Dr. Narendra Franks CRPon 06-26-2022 CRP [Mass/Vol] mg/L Normal <=1.0 [facility] Comment on above: Performed By: #### C RP #### [facility] [address] [place] [address] CSPINE WO CONon 2 CT CSPINE WO CON INDICATION: 26 years [...] YESSENIA HICKEY Date: 2022-06-26 21:58 Normal [facility] MONOon 06-26-2022 Monocytes (Bld) [#/Vol] Negative Normal NEGATIVE [facility] Comment on above: Performed By: #### M MORGAN, PREG #### [facility] [address] [place] [address] Dr. Narendra Franks PREG HCG QUALon 06-26-2022 , QUAL Negative Normal NEGATIVE [facility] Comment on above: Performed By: #### M MORGAN, PREG #### [facility] [address] [address] [address] Narendra Franks PROF CHEM 8 (BAS METB)on Anion gap [Moles/Vol] 9.8 mmol/L Normal [facility] Comment on above: Performed By: #### B MP #### [facility] [address] [address] [address] Narendra Franks Calcium [Mass/Vol] 8.5 mg/dL Normal 8.5-10.[address] [facility] Comment on above: Performed By: #### B MP #### [facility] [address] [address] [address] Narendra Franks Chloride [Moles/Vol] 104 mmol/L Normal 98-107 [facility] Comment on above: Performed By: #### B MP #### [facility] [address] [place] [address] Dr. Narendra Franks CO2 [Moles/Vol] 28.0 mmol/L Normal 21.0-32.0 [facility] Comment on above: Performed By: #### B MP #### [facility] [address] [place] [address] Dr. Narendra Franks Creatinine [Mass/Vol] 0.77 mg/dL Normal 0.55-1.02 [facility] Comment on above: Performed By: #### B MP #### [facility] [address] [place] [address] Dr. Narendra Franks EGFR-AF ITALIAN >60 Normal >=60 [facility] Comment on above: Performed By: #### B MP #### [facility] [address] [address] [address] Narendra Franks EGFR-NON AF ITALIAN >60 Normal >=60 [facility] Comment on above: Performed By: #### B MP #### [facility] [address] [place] [address] Dr. Narendra Franks Glucose [Mass/Vol] 90 mg/dL Normal 74-106 [facility] Comment on above: Performed By: #### B MP #### [facility] [address] [address] [address] Narendra Franks Potassium [Moles/Vol] 3.8 mmol/L Normal 3.5-5.1 [facility] Comment on above: Performed By: #### B MP #### [facility] [address] [address] [address] Narendra Franks Sodium [Moles/Vol] 138 mmol/L Normal 136-[address] [facility] Comment on above: Performed By: #### B MP #### [facility] [address] [address] [address] Narendra Franks Urea nitrogen [Mass/Vol] 15.0 mg/dL Normal 7.0-18.0 [facility] Comment on above: Performed By: #### B MP #### [facility] [address] [address] [address] Narendra Franks Urea nitrogen/Creatinine [Mass ratio] 19.5 mg/mg Normal [facility] Comment on above: Performed By: #### B MP #### [facility] [address] [address] [address] Narendra Franks SED RATE [facility] 2021 SED RATE 25 mm/hr Critically high <=20 [facility] Comment on above: Performed By: #### S EDR #### [facility] [address] [address] [address] Narendra Franks CYNTHIA WITH REFLEX TO ENAon CYNTHIA WITH REFLEX TO ANYI Negative Normal NEGATIVE [facility] Comment on above: Performed By: #### A NA #### [facility] [address] [place] [address] C-REACTIVE PROTEINon 019 CRP [Mass/Vol] mg/L Normal [facility] Comment on above: Result Comment: REF VALUE < 1.00 Performed By: #### C RP #### [facility] [address] [place] [address] CITRULLINE ANTIBODYon 2018 CITRULLINE ANTIBODY <1 Normal [facility] Comment on above: Result Comment: THE TEST [...] U/ML Performed By: #### C ITAB #### [facility] [address] [place] [address] HLA-B27 TYPINGon 04-29-2019 HLA-B27 TYPING Negative Normal [facility] Comment on above: Result Comment: This test was developed without FDA review. The test performance characteristics were defined and validated by the [facility] Department of Pathology, under the accreditation guidelines of [facility]. Performed By: #### H LB27 #### [facility] [address] [place] [address] RHEUMATOID FACTORon 04-29-20 19 RHEUMATOID FACTOR <10 Normal 0 - 15 [facility] [place] Comment on above: Performed By: #### R F #### [facility] [address] [place] [address] SEDIMENTATION RATE, ERYTHROC YTEon 04-29-2019 SEDIMENTATION RATE, ERYTHROCYTE 2 mm/h Normal 0 - 20 [facility] Comment on above: Performed By: #### E SRWS #### [facility] [address] [place] [address] Vital Signs Date Time Vital Sign Value Performing Clinician Facility 06-06-2023 09:05-0400 Body height 170.18 cm Valeria Claros Other [facility] Other 06-06-2023 09:05-0400 Body mass index (BMI) [Ratio] 29.19 kg/m2 Valeria Claros Other [facility] Other 06-06-2023 09:05-0400 Body temperature 98.5 [degF] Valeria Claros Other [facility] Other 06-06-2023 09:05-0400 Body weight 84.55 kg Valeria Claros Other [facility] Other 06-06-2023 09:05-0400 Diastolic blood pressure 96 mm[Hg] Valeria Claros Other [facility] Other 06-06-2023 09:05-0400 Respiratory rate 18 /min Valeria Claros Other [facility] Other 06-06-2023 09:05-0400 SaO2% (BldA) [Mass fraction] 98 % Valeria Claros Other [facility] Other 06-06-2023 09:05-0400 Systolic blood pressure 140 mm[Hg] Valeria Claros Other [facility] Other Encounters Encounter Date Encounter Type Care Provider Facility Start: 11-18-2023 End: 11-18-2023 ambulatory ROBBIN SCHWARTZ Not Available Start: 10-21-2023 End: 10-21-2023 ambulatory ROBBIN SCHWARTZ Not Available Start: 09-18-2023 End: 09-18-2023 ambulatory ROBBIN SCHWARTZ Not Available Start: 09-14-2023 End: 09-14-2023 ambulatory ADELAIDE Latonia SHANAMIAna Luisa Not Available Start: 09-09-2023 End: 09-09-2023 ambulatory ROMINA NELSON Not Available Start: 06-06-2023 End: 06-06-2023 ambulatory Valeria Claros Other [facility] Other Start: 06-06-2023 Office outpatient ne w 20 minutes Valeria Claros [facility] Start: 12-17-2022 End: 12-17-[address] ROBBIN SCHWARTZ . Facility: Start: 06-26-2022 End: 06-27-2022 ambulatory NONE LISTED REQUEST Facility: Payers Date Payer Category Payer Unknown [id number] 2.16.84 [id number] 1995 Unknown [id number] 2.16.84 [id number] 1996 Unknown [id number] 2.16.84 [id number] 1996 Unknown [id number] 2.16.84 [id number] 1996 Unknown [id number] 1996 Unknown [id number] 1996 Unknown [id number] 1959 Unknown [id number] Social History Date Type Detail Facility Unknown if ever smoked [facility] Other Sex Assigned At Sex Assigned At Bir th [facility] Other Evaluation note 06-06-2023 Note Date & [...] understanding and is agreeable with treatment plan [facility] Other History general Narrative - Reported Note [...] Hospitalization History migraine Hospitalization History child 2020 [facility] Other Summary Purpose Family History No Family History Records FoundNo Family History Records FoundNo Family History Records Found Advance Directives No Advanced Directives Records FoundNo Advanced Directives Records FoundNo Advanced Directives Records Found Additional Source Comments INFORMATION SOURCE (unrecogn ized section and content) DATE CREATED AUTHOR 07/19/2019 [facility] DATE CREATED AUTHOR AUTHOR'S ORGANIZ ATION 12/29/2022 [facility] DATE CREATED AUTHOR AUTHOR'S ORGANIZ ATION 11/26/2023 [facility] EPIC REASON FOR VISIT (unrecogniz ed [...] BE BASED ON THE PRIMARY CLINICAL RECORDS. Left of the [employer] provides no warranty or guarantee of the accuracy or completeness of information in this document.
--- NOTE | 2023-11-30 18:24 | ED.HEATRA1 ---
HPI - Head Injury General Chief complaint: Head Injury Stated complaint: Head Injury Time Seen by Provider: 11/30/23 18:11 Source: patient Mode of arrival: walk-in History of Present Illness HPI Narrative: Patient is a 28-year-old female who presents to the ER at 18 weeks of after head injury 2 days ago. She states she hit her head on a metal hook, she reports continued pain to the top of the head as well as seeing occasional spots and nausea. She had no loss of consciousness and denies any neck pain, peripheral paresthesias. She has not had any double vision or loss of vision, she has not had any vomiting. No medications taken prior to arrival. She states she was concerned because she is and just wanted to be checked out . She states when she initially hit her head she felt dizzy but this has resolved, she is able to ambulate with no difficulty. At time of initial interview, she is sitting comfortably on the exam cart with the lights on in no distress Related Data Previous Rx's Medication Instructions Recorded ondansetron 4 mg disintegrating 4 mg PO Q6H PRN nausea and 11/30/23 tablet vomiting #12 tabs Allergies Allergy/AdvReac Type Severity Reaction Status Date / Time No Known Drug Allergies Allergy Verified 11/30/23 17:41 Review of Systems ROS Constitutional Denies: fever or chills Eyes Reports: change in vision Ears, nose, mouth, and throat Denies: throat pain, neck pain or nasal congestion Cardiovascular Denies: chest pain Respiratory Denies: cough Gastrointestinal Reports: nausea; Denies: vomiting Musculoskeletal Denies: back pain, neck pain or extremity pain Integumentary/Breast Denies: rash Neurological Reports: headache Exam Narrative Exam Narrative: Gen.: Awake, alert, in no distress Head: Normocephalic, atraumatic ENT: Moist mucous membranes, No Spangler sign or raccoon eyes. No hemotympanums or dental injury. No swelling, abrasion or ecchymosis noted of the scalp with mild tenderness at the crown of the head Respiratory: No respiratory distress, lungs clear bilaterally Cardio: Regular rate and rhythm Extremities: Moves extremities equally, no injuries noted Psych: Normal mood and affect Neuro: No focal neuro deficit Skin: Warm, dry, intact Constitutional Vital Signs, click to edit/add: Last Vital Signs Temp 98.7 F 11/30/23 17:39 Pulse 85 11/30/23 17:39 Resp 16 11/30/23 17:39 BP 132/70 11/30/23 17:39 Pulse Ox 98 11/30/23 17:39 O2 Del Method Room Air 11/30/23 17:39 Course Vital Signs Vital signs: Vital Signs Temperature 98.7 F 11/30/23 17:39 Pulse Rate 85 11/30/23 17:39 Respiratory Rate 16 11/30/23 17:39 Blood Pressure 132/70 11/30/23 17:39 Pulse Oximetry 98 11/30/23 17:39 Oxygen Delivery Method Room Air 11/30/23 17:39 Temperature 98.7 F 11/30/23 17:39 Pulse Rate 85 11/30/23 17:39 Respiratory Rate 16 11/30/23 17:39 Blood Pressure 132/70 11/30/23 17:39 Pulse Oximetry 98 11/30/23 17:39 Oxygen Delivery Method Room Air 11/30/23 17:39 MDM - Head Injury MDM Narrative Medical decision making narrative: Patient is alert and oriented, she has clear speech with no photophobia or focal neurodeficits. She has no other concerns, vaginal bleeding or fluid leakage. Her vital signs are within normal limits. She has not had any significant injury, loss of consciousness, vomiting, loss of vision or paresthesia. I discussed doing a CT scan of the head with the patient and her mother at bedside. Patient is reassured by Education that was given about head injuries. Shared medical decision making with patient and mother, she would like to defer CT scan at this time. She was made aware that we can shield her abdomen and proceed with the CT scan if she feels strongly about having the test done. She would like to defer CT scanning, she will return to the emergency department if symptoms change or worsen. She appears extremely well, she has no focal neuro deficits on exam and has not had any severe neurological symptoms prior to arrival. Medical Records Attestation: I reviewed the patient's medical records. Discharge Plan Discharge Chief Complaint: Head Injury Clinical Impression: Closed head injury Patient Disposition: Home, Self-Care Time of Disposition Decision: 18:22 Condition: Good Prescriptions / Home Meds: New ondansetron 4 mg tablet,disintegrating 4 mg PO Q6H PRN (Reason: nausea and vomiting) Qty: 12 0RF Instructions: Head Injury (ED) Referrals: Jay Sadler MD [Primary Care Provider] - 1 week Stand Alone Forms: Portal Instructions
== END 2023-11-30 18:33 | disposition home or self-care (01) ==
PROVIDERS: Emergency Provider Emergency Medicine Emergency Medical Services; PCP Family Medicine
DX: O9A.212 Injury, poisoning and certain other consequences of external causes complicating pregnancy, second trimester (principal); S09.8XXA Other specified injuries of head, initial encounter; Z3A.18 18 weeks gestation of pregnancy; W22.8XXA Striking against or struck by other objects, initial encounter
CPT/HCPCS: 99281

== ENCOUNTER 2023-12-16 14:36 | Outpatient (OUT) | payer BC, SELFPAY ==
--- NOTE | 2023-12-16 14:38 | US_ITS ---
[address] [address] Patient Name: RACHEAL CARVALHO MRN: [id number] date: 1995 Sex: F Assigned Patient Location: [facility] Current Patient Location: Accession/Order Number: [id number] Exam Date: 12/16/2023 14:39 Report Date: 12/17/2023 06:24 At the request of: ROBBIN SCHWARTZ Procedure: US OB anatomy EXAMINATION: US OB anatomy, US OB cervical length HISTORY: ANATOMY COMPARISON: Ultrasound OB transvaginal 09/18/2023 TECHNIQUE: Transabdominal sonographic examination was performed for obstetrical and evaluation. FINDINGS: Number: 1 Heart Rate: 140.0 bpm H.B. /min Amniotic Fluid Volume: Subjectively normal Placental Location: ANTERIOR with lower margin 6.1 cm from os. Cervix Length: 4.3 cm, closed. ANATOMY: Normal Structures -cerebellum, choroid plexus, cisterna magna, lateral cerebral ventricles, orbits, midline falx, hard palate, four-chamber heart, RVOT, LVOT, stomach, kidneys, bladder, umbilical cord insertion into abdomen, three-vessel cord, cervical spine, thoracic spine, lumbar spine, sacral spine, right upper extremity, left upper extremity, right lower extremity, left lower extremity. SUBOPTIMALLY SEEN: None ABNORMALITIES: None BIOMETRY: BPD: 5.1 cm 21 weeks 3 days HC: 18.8 cm 21 weeks 1 days AC: 16.8 cm 21 weeks 6 days FL: 3.6 cm 21 weeks 4 days EFW:438.4 grams; 78% FL/AC: 21.6 FL/BPD: 71.3 HC/AC: 1.1 GESTATIONAL AGE: Age by EDC: 21 weeks 0 days BEBE by EDC: 04/27/2024 Age by current US: 21 weeks 4 days BEBE by current US: 04/23/2024 US/US OB anatomy IMPRESSION: 1. Single live intrauterine with growth detailed above. Electronically authenticated by: CHELSEA SCHULTE Date: 12/17/2023 06:24
--- NOTE | 2023-12-16 14:39 | US_ITS ---
[address] [address] Patient Name: RACHEAL CARVALHO MRN: [id number] date: 1995 Sex: F Assigned Patient Location: [facility] Current Patient Location: Accession/Order Number: [id number] Exam Date: 12/16/2023 14:39 Report Date: 12/17/2023 06:24 At the request of: ROBBIN SCHWARTZ Procedure: US OB cervical length EXAMINATION: US OB anatomy, US OB cervical length HISTORY: ANATOMY COMPARISON: Ultrasound OB transvaginal 09/18/2023 TECHNIQUE: Transabdominal sonographic examination was performed for obstetrical and evaluation. FINDINGS: Number: 1 Heart Rate: 140.0 bpm H.B. /min Amniotic Fluid Volume: Subjectively normal Placental Location: ANTERIOR with lower margin 6.1 cm from os. Cervix Length: 4.3 cm, closed. ANATOMY: Normal Structures -cerebellum, choroid plexus, cisterna magna, lateral cerebral ventricles, orbits, midline falx, hard palate, four-chamber heart, RVOT, LVOT, stomach, kidneys, bladder, umbilical cord insertion into abdomen, three-vessel cord, cervical spine, thoracic spine, lumbar spine, sacral spine, right upper extremity, left upper extremity, right lower extremity, left lower extremity. SUBOPTIMALLY SEEN: None ABNORMALITIES: None BIOMETRY: BPD: 5.1 cm 21 weeks 3 days HC: 18.8 cm 21 weeks 1 days AC: 16.8 cm 21 weeks 6 days FL: 3.6 cm 21 weeks 4 days EFW:438.4 grams; 78% FL/AC: 21.6 FL/BPD: 71.3 HC/AC: 1.1 GESTATIONAL AGE: Age by EDC: 21 weeks 0 days BEBE by EDC: 04/27/2024 Age by current US: 21 weeks 4 days BEBE by current US: 04/23/2024 US/US OB cervical length IMPRESSION: 1. Single live intrauterine with growth detailed above. Electronically authenticated by: CHELSEA SCHULTE Date: 12/17/2023 06:24
== END 2023-12-16 14:37 | disposition home or self-care (01) ==
LOC: NOMS 14:37
PROVIDERS: PCP Family Medicine; Visit Provider Obstetrics & Gynecology
DX: Z36.89 Encounter for other specified antenatal screening (principal); Z3A.21 21 weeks gestation of pregnancy
CPT/HCPCS: 76805; 76817

== ENCOUNTER 2024-01-19 09:47 | Outpatient (OUT) | payer BC, SELFPAY ==
[2024-01-19 11:28] LABS: Basophils Percent Auto 0.2 % (0.2-2.0); Eosinophils Absolute Auto 0.1 10^3/uL (0.0-0.7); Eosinophils Percent Auto 1.4 % (0.9-7.0); Hematocrit 35.3 % (36.0-48.0); Hemoglobin 11.8 g/dL (12.0-16.0); Immature Granulocytes Abs Auto 0.04 10^3/uL (0.00-0.03); Immature Granulocytes Pct Auto 0.5 % (0.0-0.5); Lymphocytes Absolute Auto 1.4 10^3/uL (1.2-3.8); Lymphocytes Percent Auto 16.2 % (20.5-60.0); Mean Corpuscular HGB Conc 33.4 g/dL (29.9-35.2); Mean Corpuscular Volume 98.6 fL (81.0-99.0); Mean Platelet Volume 10.3 fL (9.5-13.5); Monocytes Absolute Auto 0.5 10^3/uL (0.3-0.8); Monocytes Percent Auto 5.7 % (1.7-12.0); Neutrophils Absolute Auto 6.7 10^3/uL (1.4-6.5); Platelet Count 220 10^3/uL (150-450); Red Blood Count 3.58 10^6/uL (4.20-5.40); Red Cell Distribution Width 13.4 % (11.0-15.0); White Blood Count 8.8 10^3/uL (4.0-11.0)
[2024-01-19 11:32] LABS: Glucose 1 Hour 83 mg/dL (<130)
== END 2024-01-19 09:48 | disposition home or self-care (01) ==
LOC: LAB 09:49
PROVIDERS: PCP Family Medicine; Visit Provider Obstetrics & Gynecology
DX: Z13.1 Encounter for screening for diabetes mellitus (principal)
CPT/HCPCS: 36415; 82950; 85025

== ENCOUNTER 2024-02-20 10:32 | Outpatient (OUT) | payer BC, SELFPAY ==
--- OUTSIDE RECORDS SUMMARY | 2024-02-20 10:35 | XMS_ITS | CCD ---
Author Organization [facility] Care Team Providers Care Radio Interference Trouble Shooter Name Role Phone REQUEST, DR NONE LISTED Primary Care Unavailmahnaz ARVIZU, DR RAMONA Ramirez Admitting Unavailable NOLBERTO, DR RAMONA Ramirez Attending Unavailable NOLBERTO, DR RAMONA Ramirez Consulting Unavailable FEI ., HILDA ORTEGA Consulting UnavailYessenia Sethi Consulting Unavailable EFREN ., DR SIEGEL Admitting Unavailable EFREN ., DR SIEGEL Attending Unavailable REQUEST, NONE LISTED Primary Care Unavaila jessica SCHWARTZ ., DR SIEGEL Consulting Unavailable Valeria Claros Unavailable ROBBIN SCHWARTZ Attending Unavailable ROBBIN SCHWARTZ Attending Unavailable KING YO Attending Unavailable ROBBIN SCHWARTZ Attending Unavailable KING YO Attending Unavailable ROBBIN SCHWARTZ Attending Unavailable ROMINA NELSON Attending Unavailable LYLY YOUSIF Referring Unavailable ADELAIDE BOJORQUEZ Attending Unavailable LYLY YOUSIF Referring Unavailable Allergies Allergy Classification Reported Allergen(s) Allergy Type Date of Onset Reaction(s) Facility (1 source) [place] Propensity to adverse reactions tingles, and itches [facility] Other Medications Current Medications Medication Drug Class(es) [...] 21 to 29on 12-24-2022 . . Normal [facility] Comment on above: Performed By: #### [id number] #### [facility] [address] [place] [address] Dr. Narendra Franks Age Gdln ACOG Testing [facility] Comment on above: Performed By: #### [id number] #### [facility] [address] [address] [address] Narendra Franks DIAGNOSIS: Comment [facility] Comment on above: Result Comment: NEGA TIVE FOR INTRAEPITHELIAL LESION OR MALIGNANCY. Performed By: #### [id number] #### [facility] [address] [address] [address] Narendra Franks Methodology: Comment [facility] Comment on above: Result Comment: This liquid based ThinPrep(R) pap test was screened with the use of an image guided system. Performed By: #### [id number] #### [facility] [address] [place] [address] Dr. Narendra Franks Note: Comment Normal [facility] Comment on above: Result Comment: The Pap smear is a screening test designed to aid in the detection of premalignant and malignant conditions of the uterine cervix. It is not a diagnostic procedure and should not be used as the sole means of detecting cervical cancer. Both false-positive and false-negative reports do occur. . Performed By: #### [id number] #### [facility] [address] [place] [address] Dr. Narendra Franks Performed by: Comment Normal [facility] Comment on above: Result Comment: Dhruv Smith, Nurse Chemical Dependency (ASCP) Performed By: #### [id number] #### [facility] [address] [place] [address] Dr. Narendra Franks Reflex Criteria: Comment Normal [facility] Comment on above: Result Comment: The HPV DNA reflex criteria were not met with this specimen result therefore, no HPV testing was performed. . Performed By: #### [id number] #### [facility] [address] [place] [address] Dr. Narendra Franks Specimen adequacy: Comment Normal The [facility] Comment on above: Result Comment: Sati sfactory for evaluation. Endocervical and/or squamous metaplastic cells (endocervical component) are present. Performed By: #### [id number] #### [facility] [address] [place] [address] Dr. Narendra Franks CBC AUTO DIFFon 06-26-2022 BASO # 0.0 103/ul Normal 0.0-0.1 [facility] Comment on above: Performed By: #### C BC #### [facility] [address] [place] [address] Dr. Narendra Franks Basophils/100 WBC (Bld) 0.4 % Normal 0.2-2.0 [facility] Comment on above: Performed By: #### C BC #### [facility] [address] [place] [address] Dr. Narendra Franks EO # 0.3 103/ul Normal 0.0-0.7 [facility] Comment on above: Performed By: #### C BC #### [facility] [address] [place] [address] Dr. Narendra Franks Eosinophils/100 WBC (Bld) 3.5 % Normal 0.9-7.0 [facility] Comment on above: Performed By: #### C BC #### [facility] [address] [place] [address] Dr. Narendra Franks Erythrocyte distribution width (RBC) [Ratio] 14.1 % Normal 11.0-15.0 [facility] Comment on above: Performed By: #### C BC #### [facility] [address] [place] [address] Dr. Narendra Franks Hematocrit (Bld) [Volume fraction] 38.2 % Normal 36.0-48.0 [facility] Comment on above: Performed By: #### C BC #### [facility] [address] [place] [address] Dr. Narendra Franks Hemoglobin (Bld) [Mass/Vol] 12.6 g/dL Normal 12.0-16.0 [facility] Comment on above: Performed By: #### C BC #### [facility] [address] [place] [address] Dr. Narendra Franks IG # 0.01 10e3/ul Normal 0.00-0.03 [facility] Comment on above: Performed By: #### C BC #### [facility] [address] [place] [address] Dr. Narendra Franks IG % 0.1 % Normal 0.0-0.5 [facility] Comment on above: Performed By: #### C BC #### [facility] [address] [place] [address] Dr. Narendra Franks LYMPH # 2.4 103/ul Normal 1.2-3.8 [facility] Comment on above: Performed By: #### C BC #### [facility] [address] [place] [address] Dr. Narendra Franks Lymphocytes/100 WBC (Bld) 30.4 % Normal 20.5-60.0 [facility] Comment on above: Performed By: #### C BC #### [facility] [address] [place] [address] Dr. Narendra Franks MANUAL DIFF REQ NO Normal [facility] Comment on above: Performed By: #### C BC #### [facility] [address] [place] [address] Dr. Narendra Franks MCH (RBC) [Entitic mass] 30.4 pg Normal 26.7-34.0 [facility] Comment on above: Performed By: #### C BC #### [facility] [address] [place] [address] Dr. Narendra Franks MCHC (RBC) [Mass/Vol] 33.0 g/dL Normal 29.9-35.2 [facility] Comment on above: Performed By: #### C BC #### [facility] [address] [place] [address] Dr. Narendra Franks MCV (RBC) [Entitic vol] 92.0 fL Normal 81.0-99.0 [facility] Comment on above: Performed By: #### C BC #### [facility] [address] [place] [address] Dr. Narendra Franks MONO # 0.5 103/ul Normal 0.3-0.8 [facility] Comment on above: Performed By: #### C BC #### [facility] [address] [place] [address] Dr. Narendra Franks Monocytes/100 WBC (Bld) 6.3 % Normal 1.7-12.0 [facility] Comment on above: Performed By: #### C BC #### [facility] [address] [place] [address] Dr. Narendra Franks NEUT # 4.7 103/ul Normal 1.4-6.5 [facility] Comment on above: Performed By: #### C BC #### [facility] [address] [place] [address] Dr. Narendra Franks Neutrophils/100 WBC (Bld) 59.3 % Normal 43.0-75.0 [facility] Comment on above: Performed By: #### C BC #### [facility] [address] [address] [address] Narendra Franks Platelet mean volume (Bld) [Entitic vol] 10.5 fL Normal 9.5-13.5 [facility] Comment on above: Performed By: #### C BC #### [facility] [address] [address] [address] Narendra Franks PLT 272 103/ul Normal 150-450 [facility] Comment on above: Performed By: #### C BC #### [facility] [address] [address] [address] Narendra Franks RBC 4.15 106/ul Critically low 4.20-5.40 [facility] Comment on above: Performed By: #### C BC #### [facility] [address] [address] [address] Narendra Franks WBC 8.0 103/ul Normal 4.0-11.0 [facility] Comment on above: Performed By: #### C BC #### [facility] [address] [address] [address] Narendra Franks CRPon 06-26-2022 CRP [Mass/Vol] mg/L Normal <=1.0 [facility] Comment on above: Performed By: #### C RP #### [facility] [address] [address] CSPINE WO CONon [...] YESSENIA HICKEY Date: 2022-06-26 21:58 Normal [facility] MONOon 06-26-2022 Monocytes (Bld) [#/Vol] Negative Normal NEGATIVE [facility] Comment on above: Performed By: #### M MORGAN, PREG #### [facility] [address] [place] [address] Dr. Narendra Franks PREG HCG QUALon 06-26-2022 , QUAL Negative Normal NEGATIVE [facility] Comment on above: Performed By: #### M MORGAN, PREG #### [facility] [address] [address] [address] Narendra Franks PROF CHEM 8 (BAS METB)on Anion gap [Moles/Vol] 9.8 mmol/L Normal [facility] Comment on above: Performed By: #### B MP #### [facility] [address] [address] [address] Narendra Franks Calcium [Mass/Vol] 8.5 mg/dL Normal 8.5-10.1 [facility] Comment on above: Performed By: #### B MP #### [facility] [address] [place] [address] Dr. Narendra Franks Chloride [Moles/Vol] 104 mmol/L Normal 98-107 [facility] Comment on above: Performed By: #### B MP #### [facility] [address] [place] [address] Dr. Narendra Franks CO2 [Moles/Vol] 28.0 mmol/L Normal 21.0-32.0 [facility] Comment on above: Performed By: #### B MP #### [facility] [address] [place] [address] Dr. Narendra Franks Creatinine [Mass/Vol] 0.77 mg/dL Normal 0.55-1.02 [facility] Comment on above: Performed By: #### B MP #### [facility] [address] [address] [address] Narendra Franks EGFR-AF TANZANIAN >60 Normal >=60 [facility] Comment on above: Performed By: #### B MP #### [facility] [address] [address] [address] Narendra Franks EGFR-NON AF TANZANIAN >60 Normal >=60 [facility] Comment on above: Performed By: #### B MP #### [facility] [address] [place] [address] Dr. Narendra Franks Glucose [Mass/Vol] 90 mg/dL Normal 74-106 The [facility] Comment on above: Performed By: #### B MP #### [facility] [address] [address] [address] Narendra Franks Potassium [Moles/Vol] 3.8 mmol/L Normal 3.5-5.1 [facility] Comment on above: Performed By: #### B MP #### [facility] [address] [address] [address] Narendra Franks Sodium [Moles/Vol] 138 mmol/L Normal 136-145 [facility] Comment on above: Performed By: #### B MP #### [facility] [address] [address] [address] Narendra Franks Urea nitrogen [Mass/Vol] 15.0 mg/dL Normal 7.0-18.0 [facility] Comment on above: Performed By: #### B MP #### [facility] [address] [address] [address] Narendra Franks Urea nitrogen/Creatinine [Mass ratio] 19.5 mg/mg Normal [facility] Comment on above: Performed By: #### B MP #### [facility] [address] [address] [address] Narendra Franks SED RATE [facility] ISLANDRENon 2021 SED RATE 25 mm/hr Critically high <=20 [facility] Comment on above: Performed By: #### S EDR #### [facility] [address] [address] [address] Narendra Franks CYNTHIA WITH REFLEX TO ENAon CYNTHIA WITH REFLEX TO ANYI Negative Normal NEGATIVE [facility] Comment on above: Performed By: #### A NA #### [facility] [id number] [place] [address] C-REACTIVE PROTEINon 019 CRP [Mass/Vol] mg/L Normal [facility] Comment on above: Result Comment: REF VALUE < 1.00 Performed By: #### C RP #### [facility] [id number] [place] [address] CITRULLINE ANTIBODYon 2018 CITRULLINE ANTIBODY <1 Normal [facility] Comment on above: Result Comment: [...] U/ML Performed By: #### C ITAB #### [facility] [address] [place] [address] HLA-B27 TYPINGon 04-29-2019 HLA-B27 TYPING Negative Normal [facility] Comment on above: Result Comment: This test was developed without FDA review. The test performance characteristics were defined and validated by the [facility] Department of Pathology, under the accreditation guidelines of [facility]. Performed By: #### H [id number] #### [facility] [address] [place] [address] RHEUMATOID FACTORon 04-29-20 19 RHEUMATOID FACTOR <10 Normal 0 - 15 [facility] Comment on above: Performed By: #### R F #### [facility] [address] [place] [address] SEDIMENTATION RATE, ERYTHROC YTEon 04-29-2019 SEDIMENTATION RATE, ERYTHROCYTE 2 mm/h Normal 0 - 20 [facility] Comment on above: Performed By: #### E SRWS #### [facility] [address] [place] [address] Vital Signs Date Time Vital Sign Value Performing Clinician Facility 06-06-2023 09:05-0400 Body height 170.18 cm Valeria Claros Other [facility] Other 06-06-2023 09:05-0400 Body mass index (BMI) [Ratio] 29.19 kg/m2 Valeria Claros Other [facility] Other 06-06-2023 09:05-0400 Body temperature 98.5 [degF] Valeria Claros Other [facility] Other 06-06-2023 09:05-0400 Body weight 84.55 kg Valeria Claros Other [facility] Other 06-06-2023 09:05-0400 Diastolic blood pressure 96 mm[Hg] Valeria Claros Other [facility] Other 06-06-2023 09:05-0400 Respiratory rate 18 /min Valeria Claros Other [facility] Other 06-06-2023 09:05-0400 SaO2% (BldA) [Mass fraction] 98 % Valeria Claros Other [facility] Other 06-06-2023 09:05-0400 Systolic blood pressure 140 mm[Hg] Valeria Claros Other [facility] Other Encounters Encounter Date Encounter Type Care Provider Facility Start: 02-16-2024 End: 02-16-2024 ambulatory ROBBIN EFREN Not Available Start: 02-02-2024 End: 02-02-2024 ambulatory KING SANAZ Not Available Start: 01-13-2024 End: 01-13-2024 ambulatory ROBBIN EFREN Not Available Start: 12-16-2023 End: 12-16-2023 ambulatory KING SANAZ Not Available Start: 11-18-2023 End: 11-18-2023 ambulatory ROBBIN EFREN Not Available Start: 10-21-2023 End: 10-21-2023 ambulatory ROBBIN EFREN Not Available Start: 09-18-2023 End: 09-18-2023 ambulatory ROBBIN EFREN Not Available Start: 09-14-2023 End: 09-14-2023 ambulatory ADELAIDE BOJORQUEZ Not Available Start: 09-09-2023 End: 09-09-2023 ambulatory ROMINA NELSON Not Available Start: 06-06-2023 End: 06-06-2023 ambulatory Valeria Claros Other [facility] Other Start: 06-06-2023 Office outpatient ne w 20 minutes Valeria Claros [facility] Start: 12-17-2022 End: 12-17-[address] ROBBIN SCHWARTZ . Facility: Start: 06-26-2022 End: 06-27-2022 ambulatory NONE LISTED REQUEST Facility: Payers Date Payer Category Payer Unknown [id number] 2.16.84 [id number] 1995 Unknown [id number] 2.16.84 [id number] 1995 Unknown [id number] 2.16.84 [id number] 1996 Unknown [id number] 2.16.84 [id number] 1996 Unknown [id number] 2.16.84 [id number] 1996 Unknown [id number] 2.16.84 [id number] 1996 Unknown [id number] 2.16.84 [id number] 1996 Unknown [id number] 2.16.84 [id number] 1996 Unknown [id number] 2.16.840 .[id number] 1996 Unknown [id number] 2.16.840 .[id number] 1996 Unknown [id number] 2.16.840 .[id number] 1959 Unknown [id number] Social History Date Type Detail Facility Unknown if ever smoked [facility] Other Sex Assigned At Sex Assigned At Bir th [facility] Other Evaluation note 06-06-2023 Note Date & [...] understanding and is agreeable with treatment plan [facility] Other History general Narrative - Reported Note [...] Hospitalization History migraine Hospitalization History child 2020 [facility] Other Summary Purpose Family History No Family History Records FoundNo Family History Records FoundNo Family History Records Found Advance Directives No Advanced Directives Records FoundNo Advanced Directives Records FoundNo Advanced Directives Records Found Additional Source Comments INFORMATION SOURCE (unrecogn ized section and content) DATE CREATED AUTHOR 07/19/2019 [facility] DATE CREATED AUTHOR AUTHOR'S ORGANIZ ATION 12/29/2022 [facility] DATE CREATED AUTHOR AUTHOR'S ORGANIZ ATION 02/18/2024 [facility] EPIC REASON FOR VISIT (unrecogniz [...] BE BASED ON THE PRIMARY CLINICAL RECORDS. [facility]. provides no warranty or guarantee of the accuracy or completeness of information in this document.
[2024-02-20 10:57] LABS: Basophils Percent Auto 0.2 % (0.2-2.0); Eosinophils Absolute Auto 0.2 10^3/uL (0.0-0.7); Eosinophils Percent Auto 2.1 % (0.9-7.0); Hemoglobin 12.6 g/dL (12.0-16.0); Immature Granulocytes Abs Auto 0.04 10^3/uL (0.00-0.03); Immature Granulocytes Pct Auto 0.5 % (0.0-0.5); Lymphocytes Absolute Auto 1.5 10^3/uL (1.2-3.8); Lymphocytes Percent Auto 17.7 % (20.5-60.0); Mean Corpuscular HGB Conc 34.1 g/dL (29.9-35.2); Mean Corpuscular Hemoglobin 33.2 pg (26.7-34.0); Mean Corpuscular Volume 97.4 fL (81.0-99.0); Mean Platelet Volume 10.3 fL (9.5-13.5); Monocytes Absolute Auto 0.6 10^3/uL (0.3-0.8); Monocytes Percent Auto 7.5 % (1.7-12.0); Neutrophils Absolute Auto 6.1 10^3/uL (1.4-6.5); Platelet Count 198 10^3/uL (150-450); Red Cell Distribution Width 13.1 % (11.0-15.0); White Blood Count 8.4 10^3/uL (4.0-11.0)
[2024-02-20 14:19] LABS: Alanine Aminotransferase 32 U/L (14-59); Aspartate Amino Transferase 23 U/L (15-37); Estimated GFR (African America >60 (>=60); Estimated GFR (Non-African Ame >60 (>=60)
== END 2024-02-20 10:33 | disposition home or self-care (01) ==
LOC: LAB 10:34
PROVIDERS: PCP Family Medicine; Visit Provider Obstetrics & Gynecology
DX: O09.299 Supervision of pregnancy with other poor reproductive or obstetric history, unspecified trimester (principal); Z87.448 Personal history of other diseases of urinary system
CPT/HCPCS: 36415; 82565; 84450; 84460; 84520; 85025

== ENCOUNTER 2024-02-21 14:14 | Outpatient (REF) | payer BC, SELFPAY ==
--- OUTSIDE RECORDS SUMMARY | 2024-02-21 14:17 | XMS_ITS | CCD ---
Author Organization [facility] Care Team Providers Care Assignment Desk Editor Name Role Phone REQUEST, DR NONE LISTED [...] Propensity to adverse reactions tingles, and itches [facility] Other Medications Current Medications Medication Drug Class(es) [...] 21 to 29on 12-24-2022 . . Normal [facility] Comment on above: Performed By: #### [id number] #### [facility] [address] [place] [address] Dr. Narendra Franks Age Gdln ACOG Testing [facility] Comment on above: Performed By: #### [id number] #### [facility] [address] [address] [address] Narendra Franks DIAGNOSIS: Comment [facility] Comment on above: Result Comment: NEGA TIVE FOR INTRAEPITHELIAL LESION OR MALIGNANCY. Performed By: #### [id number] #### [facility] [address] [address] [address] Narendra Franks Methodology: Comment [facility] Comment on above: Result Comment: This liquid based ThinPrep(R) pap test was screened with the use of an image guided system. Performed By: #### [id number] #### [facility] [address] [place] [address] Dr. Narendra Franks Note: Comment Normal [facility] Comment on above: Result Comment: The Pap smear is a screening test designed to aid in the detection of premalignant and malignant conditions of the uterine cervix. It is not a diagnostic procedure and should not be used as the sole means of detecting cervical cancer. Both false-positive and false-negative reports do occur. . Performed By: #### [id number] #### [facility] [address] [place] [address] Dr. Narendra Franks Performed by: Comment Normal [facility] Comment on above: Result Comment: Dhruv Smith, [employer] Equipment Repairer (ASCP) Performed By: #### [id number] #### [facility] [address] [place] [address] Dr. Narendra Franks Reflex Criteria: Comment Normal [facility] Comment on above: Result Comment: The HPV DNA reflex criteria were not met with this specimen result therefore, no HPV testing was performed. . Performed By: #### [id number] #### [facility] [address] [place] [address] Dr. Narendra Franks Specimen adequacy: Comment Normal [facility] Comment on above: Result Comment: Sati sfactory for evaluation. Endocervical and/or squamous metaplastic cells (endocervical component) are present. Performed By: #### [id number] #### [facility] [address] [place] [address] Dr. Narendra Franks CBC AUTO DIFFon 06-26-2022 BASO # 0.0 103/ul Normal 0.0-0.[address] [facility] Comment on above: Performed By: #### C BC #### [facility] [address] [place] [address] Dr. Narendra Franks Basophils/100 WBC (Bld) 0.4 % Normal 0.2-2.[address] [facility] Comment on above: Performed By: #### C BC #### [facility] [address] [place] [address] Dr. Narendra Franks EO # 0.3 103/ul Normal 0.0-0.[address] [facility] Comment on above: Performed By: #### C BC #### [facility] [address] [place] [address] Dr. Narendra Franks Eosinophils/100 WBC (Bld) 3.5 % Normal 0.9-7.[address] [facility] Comment on above: Performed By: #### C BC #### [facility] [address] [place] [address] Dr. Narendra Franks Erythrocyte distribution width (RBC) [Ratio] 14.1 % Normal 11.0-15.[address] [facility] Comment on above: Performed By: #### C BC #### [facility] [address] [place] [address] Dr. Narendra Franks Hematocrit (Bld) [Volume fraction] 38.2 % Normal 36.0-48.[address] [facility] Comment on above: Performed By: #### C BC #### [facility] [address] [place] [address] Dr. Narendra Franks Hemoglobin (Bld) [Mass/Vol] 12.6 g/dL Normal 12.0-16.[address] [facility] Comment on above: Performed By: #### C BC #### [facility] [address] [place] [address] Dr. Narendra Franks IG # 0.01 10e3/ul Normal 0.00-0.[address] [facility] Comment on above: Performed By: #### C BC #### [facility] [address] [place] [address] Dr. Narendra Franks IG % 0.1 % Normal 0.0-0.5 [facility] Comment on above: Performed By: #### C BC #### [facility] [address] [place] [address] Dr. Narendra Franks LYMPH # 2.4 103/ul Normal 1.2-3.8 [facility] Comment on above: Performed By: #### C BC #### [facility] [address] [place] [address] Dr. Narendra Franks Lymphocytes/100 WBC (Bld) 30.4 % Normal 20.5-60.[address] [facility] Comment on above: Performed By: #### C BC #### [facility] [address] [place] [address] Dr. Narendra Franks MANUAL DIFF REQ NO Normal [facility] Comment on above: Performed By: #### C BC #### [facility] [address] [place] [address] Dr. Narendra Franks MCH (RBC) [Entitic mass] 30.4 pg Normal 26.7-34.[address] [facility] Comment on above: Performed By: #### C BC #### [facility] [address] [place] [address] Dr. Narendra Franks MCHC (RBC) [Mass/Vol] 33.0 g/dL Normal 29.9-35.2 [facility] Comment on above: Performed By: #### C BC #### [facility] [address] [place] [address] Dr. Narendra Franks MCV (RBC) [Entitic vol] 92.0 fL Normal 81.0-99.[address] [facility] Comment on above: Performed By: #### C BC #### [facility] [address] [place] [address] Dr. Narendra Franks MONO # 0.5 103/ul Normal 0.3-0.[address] [facility] Comment on above: Performed By: #### C BC #### [facility] [address] [place] [address] Dr. Narendra Franks Monocytes/100 WBC (Bld) 6.3 % Normal 1.7-12.[address] [facility] Comment on above: Performed By: #### C BC #### [facility] [address] [place] [address] Dr. Narendra Franks NEUT # 4.7 103/ul Normal 1.4-6.5 [facility] Comment on above: Performed By: #### C BC #### [facility] [address] [place] [address] Dr. Narendra Franks Neutrophils/100 WBC (Bld) 59.3 % Normal 43.0-75.0 [facility] Comment on above: Performed By: #### C BC #### [facility] [address] [address] [address] Narendra Franks Platelet mean volume (Bld) [Entitic vol] 10.5 fL Normal 9.5-13.[address] [facility] Comment on above: Performed By: #### C BC #### [facility] [address] [address] [address] Narendra Franks PLT 272 103/ul Normal 150-450 [facility] Comment on above: Performed By: #### C BC #### [facility] [address] [address] [address] Narendra Franks RBC 4.15 106/ul Critically low 4.20-5.40 [facility] Comment on above: Performed By: #### C BC #### [facility] [address] [address] [address] Narendra Franks WBC 8.0 103/ul Normal 4.0-11.0 [facility] Comment on above: Performed By: #### C BC #### [facility] [address] [address] [address] Narendra Franks CRPon 06-26-2022 CRP [Mass/Vol] mg/L Normal <=1.0 [facility] Comment on above: Performed By: #### C RP #### [facility] [address] [address] CSPINE WO CONon [...] YESSENIA HICKEY Date: 2022-06-26 21:58 Normal [facility] MONOon 06-26-2022 Monocytes (Bld) [#/Vol] Negative Normal NEGATIVE [facility] Comment on above: Performed By: #### M MORGAN, PREG #### [facility] [address] [place] [address] Dr. Narendra Franks PREG HCG QUALon 06-26-2022 , QUAL Negative Normal NEGATIVE [facility] Comment on above: Performed By: #### M MORGAN, PREG #### [facility] [address] [address] [address] Narendra Franks PROF CHEM 8 (BAS METB)on Anion gap [Moles/Vol] 9.8 mmol/L Normal [facility] Comment on above: Performed By: #### B MP #### [facility] [address] [address] [address] Narendra Franks Calcium [Mass/Vol] 8.5 mg/dL Normal 8.5-10.1 [facility] Comment on above: Performed By: #### B MP #### [facility] [address] [place] [address] Dr. Narendra Franks Chloride [Moles/Vol] 104 mmol/L Normal 98-[address] [facility] Comment on above: Performed By: #### B MP #### [facility] [address] [place] [address] Dr. Narendra Franks CO2 [Moles/Vol] 28.0 mmol/L Normal 21.0-32.0 [facility] Comment on above: Performed By: #### B MP #### [facility] [address] [place] [address] Dr. Narendra Franks Creatinine [Mass/Vol] 0.77 mg/dL Normal 0.55-1.[address] [facility] Comment on above: Performed By: #### B MP #### [facility] [address] [address] [address] Narendra Franks EGFR-AF COLOMBIAN >60 Normal >=60 [facility] Comment on above: Performed By: #### B MP #### [facility] [address] [address] [address] Narendra Franks EGFR-NON AF COLOMBIAN >60 Normal >=60 [facility] Comment on above: Performed By: #### B MP #### [facility] [address] [place] [address] Dr. Narendra Franks Glucose [Mass/Vol] 90 mg/dL Normal 74-106 [facility] Comment on above: Performed By: #### B MP #### [facility] [address] [address] [address] Narendra Franks Potassium [Moles/Vol] 3.8 mmol/L Normal 3.5-5.[address] [facility] Comment on above: Performed By: #### B MP #### [facility] [address] [address] [address] Narendra Franks Sodium [Moles/Vol] 138 mmol/L Normal 136-145 [facility] Comment on above: Performed By: #### B MP #### [facility] [address] [address] [address] Narendra Franks Urea nitrogen [Mass/Vol] 15.0 mg/dL Normal 7.0-18.[address] [facility] Comment on above: Performed By: #### B MP #### [facility] [address] [address] [address] Narendra Franks Urea nitrogen/Creatinine [Mass ratio] 19.5 mg/mg Normal [facility] Comment on above: Performed By: #### B MP #### [facility] [address] [address] [address] Narendra Franks [facility] SED [facility] 25 mm/hr Critically high <=20 [facility] Comment on above: Performed By: #### S EDR #### [facility] [address] [address] [address] Narendra Franks CYNTHIA WITH REFLEX TO ENAon CYNTHIA WITH REFLEX TO ANYI Negative Normal NEGATIVE [facility] Comment on above: Performed By: #### A NA #### [facility] [address] [place] [address] C-REACTIVE PROTEINon 019 CRP [Mass/Vol] mg/L Normal [facility] Comment on above: Result Comment: REF VALUE < 1.00 Performed By: #### C RP #### [facility] [address] [place] [address] CITRULLINE ANTIBODYon 2018 CITRULLINE ANTIBODY <1 Normal [facility] Comment on above: Result Comment: THE [...] U/ML Performed By: #### C ITAB #### [facility] [address] [place] [address] HLA-B27 TYPINGon 04-29-2019 HLA-B27 TYPING Negative Normal [facility] Comment on above: Result Comment: This test was developed without FDA review. The test performance characteristics were defined and validated by the [facility] Department of Pathology, under the accreditation guidelines of [facility]. Performed By: #### H LB27 #### [facility] [address] [place] [address] RHEUMATOID FACTORon 04-29-20 19 RHEUMATOID FACTOR <10 Normal 0 - 15 [facility] Comment on above: Performed By: #### R F #### [facility] [address] [place] [address] SEDIMENTATION RATE, ERYTHROC YTEon 04-29-2019 SEDIMENTATION RATE, ERYTHROCYTE 2 mm/h Normal 0 - 20 [facility] Comment on above: Performed By: #### E SRWS #### [facility] [address] [place] [address] Vital Signs Date Time Vital Sign Value Performing Clinician Facility 06-06-2023 09:05-0400 Body height 170.18 cm Valeria Claros Other [facility] Other 06-06-2023 09:05-0400 Body mass index (BMI) [Ratio] 29.19 kg/m2 Valeria Claros Other [facility] Other 06-06-2023 09:05-0400 Body temperature 98.5 [degF] Valeria Claros Other [facility] Other 06-06-2023 09:05-0400 Body weight 84.55 kg Valeria Claros Other [facility] Other 06-06-2023 09:05-0400 Diastolic blood pressure 96 mm[Hg] Valeria Claros Other [facility] Other 06-06-2023 09:05-0400 Respiratory rate 18 /min Valeria Claros Other [facility] Other 06-06-2023 09:05-0400 SaO2% (BldA) [Mass fraction] 98 % Valeria Claros Other [facility] Other 06-06-2023 09:05-0400 Systolic blood pressure 140 mm[Hg] Valeria Claros Other [facility] Other Encounters Encounter Date Encounter Type Care [...] 06-06-2023 End: 06-06-2023 ambulatory Valeria Claros Other [facility] Other Start: 06-06-2023 Office outpatient ne w 20 minutes Valeria Claros [facility] Start: 12-17-2022 End: 12-17-[address] ROBBIN SCHWARTZ . Facility: Start: 06-26-2022 End: 06-27-2022 ambulatory NONE LISTED REQUEST Facility: Payers Date Payer Category Payer Unknown [id number] 2.16.84 [id number] 1996 Unknown [id number] 2.16.84 [id number] 1996 Unknown [id number] 2.16.84 [id number] 1996 Unknown [id number] 2.16.84 [id number] 1996 Unknown [id number] 2.16.84 [id number] 1996 Unknown [id number] 2.16.84 [id number] 1996 Unknown [id number] 2.16.84 [id number] 1996 Unknown [id number] 2.16.84 [id number] 1996 Unknown [id number] 2.16.840 .[id number] 1996 Unknown [id number] 2.16.840 .[id number] 1996 Unknown [id number] 2.16.840 .[id number] 1959 Unknown [id number] Social History Date Type Detail Facility Unknown if ever smoked [facility] Other Sex Assigned At Sex Assigned At Bir th [facility] Other Evaluation note 06-06-2023 Note Date & [...] understanding and is agreeable with treatment plan [facility] Other History general Narrative - Reported Note [...] Hospitalization History migraine Hospitalization History child 2020 [facility] Other Summary Purpose Family History No Family History Records FoundNo Family History Records FoundNo Family History Records Found Advance Directives No Advanced Directives Records FoundNo Advanced Directives Records FoundNo Advanced Directives Records Found Additional Source Comments INFORMATION SOURCE (unrecogn ized section and content) DATE CREATED AUTHOR 07/19/2019 [facility] DATE CREATED AUTHOR AUTHOR'S ORGANIZ ATION 12/29/2022 [facility] DATE CREATED AUTHOR AUTHOR'S ORGANIZ ATION 02/18/2024 [facility] EPIC REASON FOR VISIT [...] BE BASED ON THE PRIMARY CLINICAL RECORDS. [facility]. provides no warranty or guarantee of the accuracy or completeness of information in this document.
[2024-02-21 15:08] LABS: Total Protein Urine Random 15.9 mg/dL (<=11.9)
[2024-02-21 15:10] LABS: Total Protein 24 Hour Urine 254.4 mg/24hr (<=149.1); Total Volume 24 Hour Urine 1600 mL/24hr
== END 2024-02-21 14:15 | disposition home or self-care (01) ==
LOC: LAB 14:14
PROVIDERS: PCP Family Medicine; Visit Provider Obstetrics & Gynecology
DX: O09.299 Supervision of pregnancy with other poor reproductive or obstetric history, unspecified trimester (principal); Z87.448 Personal history of other diseases of urinary system
CPT/HCPCS: 81050; 84156

== ENCOUNTER 2024-03-01 09:48 | Outpatient (OUT) | payer BC, SELFPAY ==
--- NOTE | 2024-03-01 09:51 | US_ITS ---
[address] [address] Patient Name: RACHEAL CARVALHO MRN: [id number] date: 1995 Sex: F Assigned Patient Location: [facility] Current Patient Location: [facility] Accession/Order Number: [id number] Exam Date: 03/01/2024 09:51 Report Date: 03/01/2024 12:43 At the request of: ROBBIN STINSON Procedure: US OB growth EXAMINATION: US OB growth HISTORY: HISTORY OF KIDNEY DISEASE AND PRE-ECLASMPSIA COMPARISON: Ultrasound OB anatomy 12/16/2023 FINDINGS: Heart Rate: 126.0 bpm Number: 1.0 Position: CEPHALIC Amniotic Fluid Volume: 13.1 cm Maximum Vertical Pocket: 4.4 cm BIOMETRY: BPD: 8.4 cm cm; 33 weeks 5 days; 89% HC: 30.9 cmcm; 34 weeks 3 days ; 82% AC: 32.5 cm cm; 36 weeks 3 days; >97% FL: 6.6 cm cm; 34 weeks 0 days; 89% EFW: 2643.7 grams; >97% FL/AC: 20.3 FL/BPD: 79.0 HC/AC: 1.0 GESTATIONAL AGE: Age by EDC: 31 weeks 6 days BEBE by EDC: 04/27/2024 Age by US: 34 weeks 5 days BEBE by US: 04/07/2024 US/US OB growth IMPRESSION: 1. Single live intrauterine with growth detailed above. 2. Estimated weight is greater than 97th percentile. 3. Prominent appearance of the kidneys. Follow-up recommended. Dr. Stinson was notified of these findings by the boring machine operator production at time of imaging. Electronically authenticated by: CHELSEA SCHULTE Date: 03/01/2024 12:43
== END 2024-03-01 09:49 | disposition home or self-care (01) ==
LOC: NOMS 09:48
PROVIDERS: PCP Family Medicine; Visit Provider Obstetrics & Gynecology
DX: O09.299 Supervision of pregnancy with other poor reproductive or obstetric history, unspecified trimester (principal); Z3A.34 34 weeks gestation of pregnancy; Z87.448 Personal history of other diseases of urinary system
CPT/HCPCS: 76816

== ENCOUNTER 2024-03-16 07:09 | Outpatient (OUT) | payer BC, SELFPAY ==
--- OUTSIDE RECORDS SUMMARY | 2024-03-16 07:12 | XMS_ITS | CCD ---
Author Organization [facility] Care Team Providers Care Outpatient Psychiatrist Name Role Phone REQUEST, DR NONE LISTED Primary Care Unavailmahnaz ARVIZU, DR RAMONA Ramirez Admitting Unavailable NOLBERTO, DR RAMONA Ramirez Attending Unavailable NOLBERTO, DR RAMONA Ramirze Consulting Unavailable FEI ., HILDA ORTEGA Consulting [...] BOJORQUEZ Attending Unavailable LYLY YOUSIF Referring Unavailable KING YO Attending Unavailable Allergies Allergy Classification Reported Allergen(s) Allergy Type Date of Onset Reaction(s) Facility (1 source) Raspberry Propensity to adverse reactions tingles, and itches [facility] Other Medications Current Medications Medication Drug Class(es) [...] 2: 22 to 29on 12-24-2022 . . [facility] Comment on above: Performed By: #### [id number] #### [facility] [address] [place] [address] Dr. Narendra Franks Age Gdln ACOG Testing [facility] Comment on above: Performed By: #### [id number] #### [facility] [address] [address] [address] Narendra Franks DIAGNOSIS: Comment [facility] Comment on above: Result Comment: NEGA TIVE FOR INTRAEPITHELIAL LESION OR MALIGNANCY. Performed By: #### [id number] #### [facility] [address] [address] [address] Narendra Franks Methodology: Comment [facility] Comment on above: Result Comment: This liquid based ThinPrep(R) pap test was screened with the use of an image guided system. Performed By: #### [id number] #### [facility] [address] [place] [address] Dr. Narendra Franks Note: Comment Normal [facility] Comment on above: Result Comment: The Pap smear is a screening test designed to aid in the detection of premalignant and malignant conditions of the uterine cervix. It is not a diagnostic procedure and should not be used as the sole means of detecting cervical cancer. Both false-positive and false-negative reports do occur. . Performed By: #### [id number] #### [facility] [address] [place] [address] Dr. Narendra Franks Performed by: Comment Normal [facility] Comment on above: Result Comment: Dhruv Smith, [employer] Sales Representative (ASCP) Performed By: #### [id number] #### [facility] [address] [place] [address] Dr. Narendra Franks Reflex Criteria: Comment Normal [facility] Comment on above: Result Comment: The HPV DNA reflex criteria were not met with this specimen result therefore, no HPV testing was performed. . Performed By: #### [id number] #### [facility] [address] [place] [address] Dr. Narendra Franks Specimen adequacy: Comment Normal [facility] Comment on above: Result Comment: Sati sfactory for evaluation. Endocervical and/or squamous metaplastic cells (endocervical component) are present. Performed By: #### [id number] #### [facility] [address] [place] [address] Dr. Narendra Franks CBC AUTO DIFFon 06-26-2022 BASO # 0.0 103/ul Normal 0.0-0.1 [facility] Comment on above: Performed By: #### C BC #### [facility] [address] [place] [address] Dr. Narendra Franks Basophils/100 WBC (Bld) 0.4 % Normal 0.2-2.0 [facility] Comment on above: Performed By: #### C BC #### [facility] [address] [place] [address] Dr. Narendra Franks EO # 0.3 103/ul Normal 0.0-0.7 [facility] Comment on above: Performed By: #### C BC #### [facility] [address] [place] [address] Dr. Narendra Franks Eosinophils/100 WBC (Bld) 3.5 % Normal 0.9-7.0 [facility] Comment on above: Performed By: #### C BC #### [facility] [address] [place] [address] Dr. Narendra Franks Erythrocyte distribution width (RBC) [Ratio] 14.1 % Normal 11.0-15.0 [facility] Comment on above: Performed By: #### C BC #### [facility] [address] [place] [address] Dr. Narendra Franks Hematocrit (Bld) [Volume fraction] 38.2 % Normal 36.0-48.0 [facility] Comment on above: Performed By: #### C BC #### [facility] [address] [place] [address] Dr. Narendra Franks Hemoglobin (Bld) [Mass/Vol] 12.6 g/dL Normal 12.0-16.0 [facility] Comment on above: Performed By: #### C BC #### [facility] [address] [place] [address] Dr. Narendra Franks IG # 0.01 10e3/ul Normal 0.00-0.03 [facility] Comment on above: Performed By: #### C BC #### [facility] [address] [place] [address] Dr. Narendra Franks IG % 0.1 % Normal 0.0-0.5 [facility] Comment on above: Performed By: #### C BC #### [facility] [address] [place] [address] Dr. Narendra Franks LYMPH # 2.4 103/ul Normal 1.2-3.8 [facility] Comment on above: Performed By: #### C BC #### [facility] [address] [place] [address] Dr. Narendra Franks Lymphocytes/100 WBC (Bld) 30.4 % Normal 20.5-60.0 [facility] Comment on above: Performed By: #### C BC #### [facility] [address] [place] [address] Dr. Narendra Franks MANUAL DIFF REQ NO Normal [facility] Comment on above: Performed By: #### C BC #### [facility] [address] [place] [address] Dr. Narendra Franks MCH (RBC) [Entitic mass] 30.4 pg Normal 26.7-34.0 [facility] Comment on above: Performed By: #### C BC #### [facility] [address] [place] [address] Dr. Narendra Franks MCHC (RBC) [Mass/Vol] 33.0 g/dL Normal 29.9-35.2 [facility] Comment on above: Performed By: #### C BC #### [facility] [address] [place] [address] Dr. Narendra Franks MCV (RBC) [Entitic vol] 92.0 fL Normal 81.0-99.0 [facility] Comment on above: Performed By: #### C BC #### [facility] [address] [place] [address] Dr. Narendra Franks MONO # 0.5 103/ul Normal 0.3-0.8 [facility] Comment on above: Performed By: #### C BC #### [facility] [address] [place] [address] Dr. Narendra Franks Monocytes/100 WBC (Bld) 6.3 % Normal 1.7-12.0 [facility] Comment on above: Performed By: #### C BC #### [facility] [address] [place] [address] Dr. Narendra Franks NEUT # 4.7 103/ul Normal 1.4-6.5 [facility] Comment on above: Performed By: #### C BC #### [facility] [address] [place] [address] Dr. Narendra Franks Neutrophils/100 WBC (Bld) 59.3 % Normal 43.0-75.0 [facility] Comment on above: Performed By: #### C BC #### [facility] [address] [address] [address] Narendra Franks Platelet mean volume (Bld) [Entitic vol] 10.5 fL Normal 9.5-13.5 [facility] Comment on above: Performed By: #### C BC #### [facility] [address] [address] [address] Narendra Franks PLT 272 103/ul Normal 150-450 [facility] Comment on above: Performed By: #### C BC #### [facility] [address] [address] [address] Narendra Franks RBC 4.15 106/ul Critically low 4.20-5.40 [facility] Comment on above: Performed By: #### C BC #### [facility] [address] [address] [address] Narendra Franks WBC 8.0 103/ul Normal 4.0-11.0 [facility] Comment on above: Performed By: #### C BC #### [facility] [address] [address] [address] Narendra Franks CRPon 06-26-2022 CRP [Mass/Vol] mg/L Normal <=1.0 [facility] Comment on above: Performed By: #### C RP #### [facility] [address] [place] [address] CSPINE WO CONon [...] YESSENIA HICKEY Date: 2022-06-26 21:58 Normal [facility] MONOon 06-26-2022 Monocytes (Bld) [#/Vol] Negative Normal NEGATIVE [facility] Comment on above: Performed By: #### M MORGAN, PREG #### [facility] [address] [place] [address] Dr. Narendra Franks PREG HCG QUALon 06-26-2022 , QUAL Negative Normal NEGATIVE [facility] Comment on above: Performed By: #### M OMRGAN, PREG #### [facility] [address] [address] [address] Narendra Franks PROF CHEM 8 (BAS METB)on Anion gap [Moles/Vol] 9.8 mmol/L Normal [facility] Comment on above: Performed By: #### B MP #### [facility] [address] [address] [address] Narendra Franks Calcium [Mass/Vol] 8.5 mg/dL Normal 8.5-10.1 [facility] Comment on above: Performed By: #### B MP #### [facility] [address] [place] [address] Dr. Narendra Franks Chloride [Moles/Vol] 104 mmol/L Normal 98-107 [facility] Comment on above: Performed By: #### B MP #### [facility] [address] [address] [address] Narendra Franks CO2 [Moles/Vol] 28.0 mmol/L Normal 21.0-32.0 [facility] Comment on above: Performed By: #### B MP #### [facility] [address] [place] [address] Dr. Narendra Franks Creatinine [Mass/Vol] 0.77 mg/dL Normal 0.55-1.02 [facility] Comment on above: Performed By: #### B MP #### [facility] [address] [address] [address] Narendra Franks EGFR-AF BOLIVIAN >60 Normal >=60 [facility] Comment on above: Performed By: #### B MP #### [facility] [address] [address] [address] Narendra Franks EGFR-NON AF BOLIVIAN >60 Normal >=60 [facility] Comment on above: Performed By: #### B MP #### [facility] [address] [place] [address] Dr. Narendra Franks Glucose [Mass/Vol] 90 mg/dL Normal 74-106 [facility] Comment on above: Performed By: #### B MP #### [facility] [address] [address] [address] Narendra Franks Potassium [Moles/Vol] 3.8 mmol/L Normal 3.5-5.1 [facility] Comment on above: Performed By: #### B MP #### [facility] [address] [address] [address] Narendra Franks Sodium [Moles/Vol] 138 mmol/L Normal 136-145 [facility] Comment on above: Performed By: #### B MP #### [facility] [address] [address] [address] Narendra Franks Urea nitrogen [Mass/Vol] 15.0 mg/dL Normal 7.0-18.0 [facility] Comment on above: Performed By: #### B MP #### [facility] [address] [address] [address] Narendra Franks Urea nitrogen/Creatinine [Mass ratio] 19.5 mg/mg Normal [facility] Comment on above: Performed By: #### B MP #### [facility] [address] [address] [address] Narendra Franks SED RATE [facility] 2021 SED RATE 25 mm/hr Critically high <=20 [facility] Comment on above: Performed By: #### S EDR #### [facility] [address] [address] [address] Narendra Franks CYNTHIA WITH REFLEX TO ENAon CYNTHIA WITH REFLEX TO ANYI Negative Normal NEGATIVE [facility] Comment on above: Performed By: #### A NA #### [facility] [address] [place] [address] C-REACTIVE PROTEINon 019 CRP [Mass/Vol] mg/L Normal [facility] Comment on above: Result Comment: REF VALUE < 1.00 Performed By: #### C RP #### [facility] [address] [place] [address] CITRULLINE ANTIBODYon 2018 CITRULLINE ANTIBODY <1 Normal [facility] Comment on above: Result Comment: THE [...] U/ML Performed By: #### C ITAB #### [facility] [address] [place] [address] HLA-B27 TYPINGon 04-29-2019 HLA-B27 TYPING Negative Normal [facility] Comment on above: Result Comment: This test was developed without FDA review. The test performance characteristics were defined and validated by the [facility] Department of Pathology, under the accreditation guidelines of [facility]. Performed By: #### H LB27 #### [facility] [address] [place] [address] RHEUMATOID FACTORon 04-29-20 19 RHEUMATOID FACTOR <10 Normal 0 - 15 [facility] Comment on above: Performed By: #### R F #### [facility] [address] [place] [address] SEDIMENTATION RATE, ERYTHROC YTEon 04-29-2019 SEDIMENTATION RATE, ERYTHROCYTE 2 mm/h Normal 0 - 20 [facility] Comment on above: Performed By: #### E SRWS #### [facility] [address] [place] [address] Vital Signs Date Time Vital Sign Value Performing Clinician Facility 06-06-2023 09:05-0400 Body height 170.18 cm Valeria Claros Other [facility] [employer] Other 06-06-2023 09:05-0400 Body mass index (BMI) [Ratio] 29.19 kg/m2 Valeria Claros Other [facility] Other 06-06-2023 09:05-0400 Body temperature 98.5 [degF] Valeria Claros Other [facility] Other 06-06-2023 09:05-0400 Body weight 84.55 kg Valeria Claros Other [facility] Other 06-06-2023 09:05-0400 Diastolic blood pressure 96 mm[Hg] Valeria Claros Other [facility] Other 06-06-2023 09:05-0400 Respiratory rate 18 /min Valeria Claros Other [facility] Other 06-06-2023 09:05-0400 SaO2% (BldA) [Mass fraction] 98 % Valeria Claros Other [facility] Other 06-06-2023 09:05-0400 Systolic blood pressure 140 mm[Hg] Valeria Claros Other [facility] Other Encounters Encounter Date Encounter Type Care Provider Facility Start: 03-01-2024 End: 03-01-2024 ambulatory KING SANAZ Not Available Start: 02-16-2024 End: 02-16-2024 ambulatory ROBBIN EFREN [...] Available Start: 09-14-2023 End: 09-14-2023 ambulatory ADELAIDE SALDANAMIAna Luisa Not Available Start: 09-09-2023 End: 09-09-2023 ambulatory ROMINA NELSON Not Available Start: 06-06-2023 End: 06-06-2023 ambulatory Valeria Claros Other [facility] Other Start: 06-06-2023 Office outpatient ne w 20 minutes Valeria Claros [facility] Start: 12-17-2022 End: 12-17-[address] ROBBIN SCHWARTZ . Facility: Start: 06-26-2022 End: 06-27-2022 ambulatory NONE LISTED REQUEST Facility: Payers Date Payer Category Payer Unknown [id number] 2.16.84 [id number] 1995 Unknown [id number] 2.16.84 [id number] 1996 Unknown [id number] 2.16.84 [id number] 1996 Unknown [id number] 2.16.84 [id number] 1996 Unknown [id number] 2.16.84 [id number] 1996 Unknown [id number] 2.16.84 [id number] 1996 Unknown [id number] 2.16.84 [id number] 1996 Unknown [id number] 2.16.84 [id number] 1996 Unknown [id number] 2.16.84 [id number] 1996 Unknown [id number] 2.16.840 .[id number] 1996 Unknown [id number] 2.16.840 .[id number] 1996 Unknown [id number] 2.16.840 .[id number] 1959 Unknown [id number] Social History Date Type Detail Facility Unknown if ever smoked [facility] Other Sex Assigned At Sex Assigned At Bir th [facility] Other Evaluation note 06-06-2023 Note Date & [...] understanding and is agreeable with treatment plan [facility] Other History general Narrative - Reported Note [...] Hospitalization History migraine Hospitalization History child 2020 [facility] Other Summary Purpose Family History No Family History Records FoundNo Family History Records FoundNo Family History Records Found Advance Directives No Advanced Directives Records FoundNo Advanced Directives Records FoundNo Advanced Directives Records Found Additional Source Comments INFORMATION SOURCE (unrecogn ized section and content) DATE CREATED AUTHOR 07/19/2019 [facility] DATE CREATED AUTHOR AUTHOR'S ORGANIZ ATION 12/29/[address] [facility] DATE CREATED AUTHOR AUTHOR'S ORGANIZ ATION 03/02/2024 [facility] EPIC REASON FOR VISIT [...] BE BASED ON THE PRIMARY CLINICAL RECORDS. [facility] [employer] [facility]. provides no warranty or guarantee of the accuracy or completeness of information in this document.
--- NOTE | 2024-03-16 07:50 | US_ITS ---
[address] [address] Patient Name: RACHEAL CARVALHO MRN: [id number] date: 1995 Sex: F Assigned Patient Location: [facility] Current Patient Location: Accession/Order Number: [id number] Exam Date: 03/16/2024 07:51 Report Date: 03/16/2024 09:08 At the request of: ROBBIN SCHWARTZ Procedure: US OB BPP w non-stress EXAMINATION: US OB BPP w non-stress HISTORY: History of kidney disease Z87.448 COMPARISON: Ultrasound OB growth 03/01/2024 TECHNIQUE: Ultrasound biophysical profile was performed in the radiology department. BREATHING MOVEMENTS: 2 GROSS BODY MOVEMENTS: 2 TONE: 2 QUALITATIVE AMNIOTIC FLUID VOLUME: 2 PRESENTATION: Cephalic HEART RATE: 138 bpm. AMNIOTIC FLUID VOLUME: 13.6 cm GESTATIONAL AGE: 34 weeks 0 days CONCLUSION: Total biophysical profile score 8. Electronically authenticated by: CHELSEA SCHULTE Date: 03/16/2024 09:08
[2024-03-16 08:16] VITALS: BP 132/85; PULSE 100
== END 2024-03-16 08:50 | disposition home or self-care (01) ==
LOC: US 07:10 → FBC 07:48
PROVIDERS: PCP Family Medicine; Visit Provider Obstetrics & Gynecology
DX: Z87.448 Personal history of other diseases of urinary system (principal); O09.299 Supervision of pregnancy with other poor reproductive or obstetric history, unspecified trimester; Z3A.34 34 weeks gestation of pregnancy
CPT/HCPCS: 76818

== ENCOUNTER 2024-03-19 01:09 | Outpatient (OUT) | payer BC, SELFPAY ==
--- OUTSIDE RECORDS SUMMARY | 2024-03-19 01:12 | XMS_ITS | CCD ---
Author Organization [facility] Care Team Providers Care Industrial Equipment Mechanic Name Role Phone REQUEST, DR NONE LISTED [...] Attending Unavailable ROBBIN SCHWARTZ Attending Unavailable KING OY Attending Unavailable ROBBIN SCHWARTZ Attending Unavailable KING YO Attending Unavailable ROBBIN SCHWARTZ Attending Unavailable ROMINA NELSON Attending Unavailable LYLY YOUSIF Referring Unavailable ADELAIDE BOJORQUEZ Attending Unavailable LYLY YOUSIF Referring Unavailable KING YO Attending Unavailable ROBBIN SCHWARTZ Attending Unavailable Allergies Allergy Classification Reported Allergen(s) Allergy Type Date of Onset Reaction(s) Facility (1 source) Raspberry Propensity to adverse reactions tingles, and itches [facility] Other Medications Current Medications Medication Drug Class(es) [...] 21 to 29on 12-24-2022 . . Normal [facility] Comment on above: Performed By: #### [id number] #### [facility] [address] [address] [address] Narendra Franks Age Gdln ACOG Testing [facility] Comment on above: Performed By: #### [id number] #### [facility] [address] [address] [address] Narendra Franks DIAGNOSIS: Comment [facility] Comment on above: Result Comment: NEGA TIVE FOR INTRAEPITHELIAL LESION OR MALIGNANCY. Performed By: #### [id number] #### [facility] [address] [address] [address] Narendra Franks Methodology: Comment [facility] Comment on above: Result Comment: This liquid based ThinPrep(R) pap test was screened with the use of an image guided system. Performed By: #### 4 [id number] #### [facility] [address] [place] [address] Dr. Narendra Franks Note: Comment Normal [facility] Comment on above: Result Comment: The Pap smear is a screening test designed to aid in the detection of premalignant and malignant conditions of the uterine cervix. It is not a diagnostic procedure and should not be used as the sole means of detecting cervical cancer. Both false-positive and false-negative reports do occur. . Performed By: #### [id number] #### [facility] [address] [place] [address] Dr. Narendra Franks Performed by: Comment Normal [facility] Comment on above: Result Comment: Dhruv Smith, Railway Switchman (ASCP) Performed By: #### 4 [id number] #### [facility] [address] [place] [address] Dr. Narendra Franks Reflex Criteria: Comment Normal [facility] Comment on above: Result Comment: The HPV DNA reflex criteria were not met with this specimen result therefore, no HPV testing was performed. . Performed By: #### 4 [id number] #### [facility] [address] [place] [address] Dr. Narendra Franks Specimen adequacy: Comment Normal [facility] Comment on above: Result Comment: Sati sfactory for evaluation. Endocervical and/or squamous metaplastic cells (endocervical component) are present. Performed By: #### 4 [id number] #### [facility] [address] [place] [address] Dr. Narendra Franks CBC AUTO DIFFon 06-26-2022 BASO # 0.0 103/ul Normal 0.0-0.1 [facility] Comment on above: Performed By: #### C BC #### [facility] [address] [place] [address] Dr. Narendra Franks Basophils/100 WBC (Bld) 0.4 % Normal 0.2-2.0 [facility] Comment on above: Performed By: #### C BC #### [facility] [address] [place] [address] Dr. Narendra Franks EO # 0.3 103/ul Normal 0.0-0.7 [facility] Comment on above: Performed By: #### C BC #### [facility] [address] [place] [address] Dr. Narendra Franks Eosinophils/100 WBC (Bld) 3.5 % Normal 0.9-7.0 [facility] Comment on above: Performed By: #### C BC #### [facility] [address] [place] [address] Dr. Narendra Franks Erythrocyte distribution width (RBC) [Ratio] 14.1 % Normal 11.0-15.0 [facility] Comment on above: Performed By: #### C BC #### [facility] [address] [place] [address] Dr. Narendra Franks Hematocrit (Bld) [Volume fraction] 38.2 % Normal 36.0-48.0 [facility] Comment on above: Performed By: #### C BC #### [facility] [address] [place] [address] Dr. Narendra Franks Hemoglobin (Bld) [Mass/Vol] 12.6 g/dL Normal 12.0-16.0 [facility] Comment on above: Performed By: #### C BC #### [facility] [address] [place] [address] Dr. Narendra Franks IG # 0.01 10e3/ul Normal 0.00-0.03 [facility] Comment on above: Performed By: #### C BC #### [facility] [address] [place] [address] Dr. Narendra Franks IG % 0.1 % Normal 0.0-0.5 [facility] Comment on above: Performed By: #### C BC #### [facility] [address] [place] [address] Dr. Narendra Franks LYMPH # 2.4 103/ul Normal 1.2-3.8 [facility] Comment on above: Performed By: #### C BC #### [facility] [address] [place] [address] Dr. Narendra Franks Lymphocytes/100 WBC (Bld) 30.4 % Normal 20.5-60.0 [facility] Comment on above: Performed By: #### C BC #### [facility] [address] [place] [address] Dr. Narendra Franks MANUAL DIFF REQ NO Normal [place] Comment on above: Performed By: #### C BC #### [facility] [address] [place] [address] Dr. Narendra Franks MCH (RBC) [Entitic mass] 30.4 pg Normal 26.7-34.0 [facility] Comment on above: Performed By: #### C BC #### [facility] [address] [place] [address] Dr. Narendra Franks MCHC (RBC) [Mass/Vol] 33.0 g/dL Normal 29.9-35.2 [facility] Comment on above: Performed By: #### C BC #### [facility] [address] [place] [address] Dr. Narendra Franks MCV (RBC) [Entitic vol] 92.0 fL Normal 81.0-99.0 [facility] Comment on above: Performed By: #### C BC #### [facility] [address] [place] [address] Dr. Narendra Franks MONO # 0.5 103/ul Normal 0.3-0.8 [facility] Comment on above: Performed By: #### C BC #### [facility] [address] [place] [address] Dr. Narendra Franks Monocytes/100 WBC (Bld) 6.3 % Normal 1.7-12.0 [facility] Comment on above: Performed By: #### C BC #### [facility] [address] [place] [address] Dr. Narendra Franks NEUT # 4.7 103/ul Normal 1.4-6.5 [facility] Comment on above: Performed By: #### C BC #### [facility] [address] [place] [address] Dr. Narendra Franks Neutrophils/100 WBC (Bld) 59.3 % Normal 43.0-75.0 [facility] Comment on above: Performed By: #### C BC #### [facility] [address] [address] [address] Narendra Franks Platelet mean volume (Bld) [Entitic vol] 10.5 fL Normal 9.5-13.5 [facility] Comment on above: Performed By: #### C BC #### [facility] [address] [address] [address] Narendra Franks PLT 272 103/ul Normal 150-450 [facility] Comment on above: Performed By: #### C BC #### [facility] [address] [address] [address] Narendra Franks RBC 4.15 106/ul Critically low 4.20-5.40 [place] Comment on above: Performed By: #### C BC #### [facility] [address] [address] [address] Narendra Franks WBC 8.0 103/ul Normal 4.0-11.0 [facility] Comment on above: Performed By: #### C BC #### [facility] [address] [address] [address] Narendra Franks CRPon 06-26-2022 CRP [Mass/Vol] mg/L Normal <=1.0 [facility] Comment on above: Performed By: #### C RP #### [facility] [address] [address] [address] CSPINE WO CONon [...] Comment on above: Performed By: #### M SHAILESH MORA #### [facility] [address] [place] [address] Dr. Narendra Franks PREG HCG QUALon 06-26-2022 , QUAL Negative Normal NEGATIVE [facility] Comment on above: Performed By: #### M MORGAN, PREG #### [facility] [address] [address] [address] Narendra Franks PROF CHEM 8 (BAS METB)on Anion gap [Moles/Vol] 9.8 mmol/L Normal [facility] Comment on above: Performed By: #### B MP #### [facility] [address] [address] [address] Narendra Franks Calcium [Mass/Vol] 8.5 mg/dL Normal 8.5-10.1 [facility] Comment on above: Performed By: #### B MP #### [facility] [address] [place] [address] Dr. Narendra Franks Chloride [Moles/Vol] 104 mmol/L Normal 98-107 [facility] Comment on above: Performed By: #### B MP #### [facility] [address] [address] [address] Narendra Franks CO2 [Moles/Vol] 28.0 mmol/L Normal 21.0-32.0 [facility] Comment on above: Performed By: #### B MP #### [facility] [address] [place] [address] Dr. Narendra Franks Creatinine [Mass/Vol] 0.77 mg/dL Normal 0.55-1.02 [facility] Comment on above: Performed By: #### B MP #### [facility] [address] [place] [address] Dr. Narendra Franks EGFR-AF CUBAN >60 Normal >=60 [facility] Comment on above: Performed By: #### B MP #### [facility] [address] [place] [address] Dr. Narendra Franks EGFR-NON AF CUBAN >60 Normal >=60 [facility] Comment on above: Performed By: #### B MP #### [facility] [address] [address] [address] Narendra Franks Glucose [Mass/Vol] 90 mg/dL Normal 74-106 [facility] Comment on above: Performed By: #### B MP #### [facility] [address] [address] [address] Narendra Franks Potassium [Moles/Vol] 3.8 mmol/L Normal 3.5-5.1 [facility] Comment on above: Performed By: #### B MP #### [facility] [address] [address] [address] Narendra Franks Sodium [Moles/Vol] 138 mmol/L Normal 136-145 [facility] Comment on above: Performed By: #### B MP #### [facility] [address] [address] [address] Narendra Franks Urea nitrogen [Mass/Vol] 15.0 mg/dL Normal 7.0-18.0 [facility] Comment on above: Performed By: #### B MP #### [facility] [address] [address] [address] Narendra Franks Urea nitrogen/Creatinine [Mass ratio] 19.5 mg/mg Normal [facility] Comment on above: Performed By: #### B MP #### [facility] [address] [address] [address] Narendra Franks SED RATE [facility] 2021 SED RATE 25 mm/hr Critically high <=20 [place] Comment on above: Performed By: #### S EDR #### [facility] [address] [address] [address] Narendra Franks CYNTHIA WITH REFLEX TO ENAon CYNTHIA WITH REFLEX TO ANYI Negative Normal NEGATIVE [facility] Comment on above: Performed By: #### A NA #### [facility] [address] [place] [address] C-REACTIVE PROTEINon 019 CRP [Mass/Vol] mg/L Normal [facility] Comment on above: Result Comment: REF VALUE < 1.00 Performed By: #### C RP #### [facility] [address] [place] [address] CITRULLINE ANTIBODYon 2018 CITRULLINE ANTIBODY <1 Normal [facility] Comment on above: Result Comment: THE TEST [...] U/ML Performed By: #### C ITAB #### [facility] [address] [place] [address] HLA-B27 TYPINGon 04-29-2019 HLA-B27 TYPING Negative Normal [facility] Comment on above: Result Comment: This test was developed without FDA review. The test performance characteristics were defined and validated by the [facility] Department of Pathology, under the accreditation guidelines of [facility]. Performed By: #### H LB27 #### [facility] [address] [place] [address] RHEUMATOID FACTORon 04-29-20 19 RHEUMATOID FACTOR <10 Normal 0 - 15 [facility] Comment on above: Performed By: #### R F #### [facility] [address] [place] [address] SEDIMENTATION RATE, ERYTHROC YTEon 04-29-2019 SEDIMENTATION RATE, ERYTHROCYTE 2 mm/h Normal 0 - 20 [facility] Comment on above: Performed By: #### E SRWS #### [facility] [address] [place] [address] Vital Signs Date Time Vital Sign Value Performing Clinician Facility 06-06-2023 09:05-0400 Body height 170.18 cm Valeria Claros Other [facility] Other 06-06-2023 09:05-0400 Body mass index (BMI) [Ratio] 29.19 kg/m2 Valeria Claros Other [facility] Other 06-06-2023 09:05-0400 Body temperature 98.5 [degF] Valeria Claros Other [facility] Other 06-06-2023 09:05-0400 Body weight 84.55 kg Valeria Claros Other [facility] Other 06-06-2023 09:05-0400 Diastolic blood pressure 96 mm[Hg] Valeria Claros Other [facility] Other 06-06-2023 09:05-0400 Respiratory rate 18 /min Valeria Claros Other [facility] Other 06-06-2023 09:05-0400 SaO2% (BldA) [Mass fraction] 98 % Valeria Claros Other [facility] Other 06-06-2023 09:05-0400 Systolic blood pressure 140 mm[Hg] Valeria Claros Other [facility] Other Encounters Encounter Date Encounter Type Care Provider Facility Start: 03-15-2024 End: 03-15-2024 ambulatory ROBBIN EFREN Not Available Start: 03-01-2024 End: 03-01-2024 ambulatory KING SANAZ [...] Available Start: 09-14-2023 End: 09-14-2023 ambulatory ADELAIDE H TIMMIS Not Available Start: 09-09-2023 End: 09-09-2023 ambulatory ROMINA NELSON Not Available Start: 06-06-2023 End: 06-06-2023 ambulatory Valeria Claros Other [facility] Other Start: 06-06-2023 Office outpatient ne w 20 minutes Valeria Claros [facility] Start: 12-17-2022 End: 12-17-[address] ROBBIN SCHWARTZ . Facility: Start: 06-26-2022 End: 06-27-2022 ambulatory NONE LISTED REQUEST Facility: Payers Date Payer Category Payer Unknown [id number] 2.16.84 [id number] 1995 Unknown [id number] 2.16.84 [id number] 1996 Unknown [id number] 2.16.84 [id number] 1996 Unknown [id number] 2.16.84 [id number] 1996 Unknown [id number] 2.16.84 [id number] 1996 Unknown [id number] 2.16.84 [id number] 1996 Unknown [id number] 2.16.84 [id number] 1996 Unknown [id number] 2.16.84 [id number] 1996 Unknown [id number] 2.16.84 0.1.908568.3.579.2.1259 1996 Unknown [id number] 2.16.84 0.1.489760.3.579.2.1259 1996 Unknown [id number] 2.16.840 .[id number] 1996 Unknown [id number] 2.16.840 .[id number] 1996 Unknown [id number] 2.16.840 .[id number] 1959 Unknown [id number] Social History Date Type Detail Facility Unknown if ever smoked [facility] Other Sex Assigned At Sex Assigned At Bir th [facility] Other Evaluation note 06-06-2023 Note Date & [...] understanding and is agreeable with treatment plan [facility] Other History general Narrative - Reported Note [...] Hospitalization History migraine Hospitalization History child 2020 [facility] Other Summary Purpose Family History No Family History Records FoundNo Family History Records FoundNo Family History Records Found Advance Directives No Advanced Directives Records FoundNo Advanced Directives Records FoundNo Advanced Directives Records Found Additional Source Comments INFORMATION SOURCE (unrecogn ized section and content) DATE CREATED AUTHOR 07/19/2019 [facility] DATE CREATED AUTHOR AUTHOR'S ORGANIZ ATION 12/29/2022 [facility] DATE CREATED AUTHOR AUTHOR'S ORGANIZ ATION 03/16/2024 [facility] EPIC REASON FOR VISIT (unrecogniz [...] BE BASED ON THE PRIMARY CLINICAL RECORDS. [facility] [employer] [facility]. provides no warranty or guarantee of the accuracy or completeness of information in this document.
[2024-03-19 09:00] VITALS: BP 152/68; PULSE 116
[2024-03-19 09:21] VITALS: BP 143/86; PULSE 94
== END 2024-03-19 09:25 | disposition home or self-care (01) ==
LOC: FBCO 01:10 → FBC 08:56
PROVIDERS: PCP Family Medicine; Visit Provider Obstetrics & Gynecology
DX: O99.283 Endocrine, nutritional and metabolic diseases complicating pregnancy, third trimester (principal); Z3A.34 34 weeks gestation of pregnancy
CPT/HCPCS: 59025

== ENCOUNTER 2024-03-23 06:59 | Outpatient (OUT) | payer BC, SELFPAY ==
--- NOTE | 2024-03-23 | US_ITS ---
[address] [address] Patient Name: RACHEAL CARVALHO MRN: [id number] date: 1995 Sex: F Assigned Patient Location: [facility] Current Patient Location: Accession/Order Number: [id number] Exam Date: 03/23/2024 07:57 Report Date: 03/23/2024 08:58 At the request of: ROBBIN SCHWARTZ Procedure: US OB BPP w non-stress EXAMINATION: US OB BPP w non-stress HISTORY: H/O PRE-ECLAMPSIA IN PRIOR O09.299 COMPARISON: 03/16/2024 TECHNIQUE: Ultrasound biophysical profile was performed in the radiology department. FINDINGS: BREATHING MOVEMENTS: 2 GROSS BODY MOVEMENTS: 2 TONE: 2 QUALITATIVE AMNIOTIC FLUID VOLUME: 2 PRESENTATION: CEPHALIC HEART RATE: 145.16 bpm AMNIOTIC FLUID VOLUME: 15 cm GESTATIONAL AGE: 35w0d US/US OB BPP w non-stress IMPRESSION: Total biophysical profile score: 8 Electronically authenticated by: JUDY WOMACK Date: 03/23/2024 08:58
--- OUTSIDE RECORDS SUMMARY | 2024-03-23 07:02 | XMS_ITS | CCD ---
Author Organization [facility] Care Team Providers Care Mothers Helper Name Role Phone REQUEST, DR NONE LISTED [...] Propensity to adverse reactions tingles, and itches [employer] Other Medications Current Medications Medication Drug Class(es) [...] 21 to 29on 12-24-2022 . . Normal [facility] Comment on above: Performed By: #### [id number] #### [facility] [address] [address] [address] Narendra Franks Age Gdln ACOG Testing [facility] Comment on above: Performed By: #### [id number] #### [facility] [address] [address] [address] Narendra Franks DIAGNOSIS: Comment [facility] Comment on above: Result Comment: NEGA TIVE FOR INTRAEPITHELIAL LESION OR MALIGNANCY. Performed By: #### [id number] #### [facility] [address] [address] [address] Narendra Franks Methodology: Comment [facility] Comment on above: Result Comment: This liquid based ThinPrep(R) pap test was screened with the use of an image guided system. Performed By: #### [id number] #### [facility] [address] [place] [address] Dr. Narendra Franks Note: Comment Normal [facility] Comment on above: Result Comment: The Pap smear is a screening test designed to aid in the detection of premalignant and malignant conditions of the uterine cervix. It is not a diagnostic procedure and should not be used as the sole means of detecting cervical cancer. Both false-positive and false-negative reports do occur. . Performed By: #### [id number] #### [facility] [address] [place] [address] Dr. Narendra Franks Performed by: Comment Normal [facility] Comment on above: Result Comment: Dhruv Smith, Judge Clerk (ASCP) Performed By: #### [id number] #### [facility] [address] [place] [address] Dr. Narendra Franks Reflex Criteria: Comment Normal [facility] Comment on above: Result Comment: The HPV DNA reflex criteria were not met with this specimen result therefore, no HPV testing was performed. . Performed By: #### [id number] #### [facility] [address] [place] [address] Dr. Narendra Franks Specimen adequacy: Comment Normal [facility] Comment on above: Result Comment: Sati sfactory for evaluation. Endocervical and/or squamous metaplastic cells (endocervical component) are present. Performed By: #### [id number] #### [facility] [address] [place] [address] Dr. Narendra Franks CBC AUTO DIFFon 06-26-2022 BASO # 0.0 103/ul Normal 0.0-0.1 [facility] Comment on above: Performed By: #### C BC #### [facility] [address] [place] [address] Dr. Narendra Franks Basophils/100 WBC (Bld) 0.4 % Normal 0.2-2.0 [facility] Comment on above: Performed By: #### C BC #### [facility] [address] [place] [address] Dr. Narendra Franks EO # 0.3 103/ul Normal 0.0-0.7 [facility] Comment on above: Performed By: #### C BC #### [facility] [address] [place] [address] Dr. Narendra Franks Eosinophils/100 WBC (Bld) 3.5 % Normal 0.9-7.0 [facility] Comment on above: Performed By: #### C BC #### [facility] [address] [place] [address] Dr. Narendra Franks Erythrocyte distribution width (RBC) [Ratio] 14.1 % Normal 11.0-15.0 [facility] Comment on above: Performed By: #### C BC #### [facility] [address] [place] [address] Dr. Narendra Franks Hematocrit (Bld) [Volume fraction] 38.2 % Normal 36.0-48.0 [facility] Comment on above: Performed By: #### C BC #### [facility] [address] [place] [address] Dr. Narendra Franks Hemoglobin (Bld) [Mass/Vol] 12.6 g/dL Normal 12.0-16.0 [facility] Comment on above: Performed By: #### C BC #### [facility] [address] [place] [address] Dr. Narendra Franks IG # 0.01 10e3/ul Normal 0.00-0.03 [facility] Comment on above: Performed By: #### C BC #### [facility] [address] [place] [address] Dr. Narendra Franks IG % 0.1 % Normal 0.0-0.5 [facility] Comment on above: Performed By: #### C BC #### [facility] [address] [place] [address] Dr. Narendra Franks LYMPH # 2.4 103/ul Normal 1.2-3.8 [facility] Comment on above: Performed By: #### C BC #### [facility] [address] [place] [address] Dr. Narendra Franks Lymphocytes/100 WBC (Bld) 30.4 % Normal 20.5-60.0 [facility] Comment on above: Performed By: #### C BC #### [facility] [address] [place] [address] Dr. Narendra Franks MANUAL DIFF REQ NO Normal [facility] Comment on above: Performed By: #### C BC #### [facility] [address] [place] [address] Dr. Narendra Franks MCH (RBC) [Entitic mass] 30.4 pg Normal 26.7-34.0 [facility] Comment on above: Performed By: #### C BC #### [facility] [address] [place] [address] Dr. Narendra Franks MCHC (RBC) [Mass/Vol] 33.0 g/dL Normal 29.9-35.2 [facility] Comment on above: Performed By: #### C BC #### [facility] [address] [place] [address] Dr. Narendra Franks MCV (RBC) [Entitic vol] 92.0 fL Normal 81.0-99.0 [facility] Comment on above: Performed By: #### C BC #### [facility] [address] [place] [address] Dr. Narendra Franks MONO # 0.5 103/ul Normal 0.3-0.8 [facility] Comment on above: Performed By: #### C BC #### [facility] [address] [place] [address] Dr. Narendra Franks Monocytes/100 WBC (Bld) 6.3 % Normal 1.7-12.0 [facility] Comment on above: Performed By: #### C BC #### [facility] [address] [place] [address] Dr. Narendra Franks NEUT # 4.7 103/ul Normal 1.4-6.5 [facility] Comment on above: Performed By: #### C BC #### [facility] [address] [place] [address] Dr. Narendra Franks Neutrophils/100 WBC (Bld) 59.3 % Normal 43.0-75.0 [facility] Comment on above: Performed By: #### C BC #### [facility] [address] [address] [address] Narendra Franks Platelet mean volume (Bld) [Entitic vol] 10.5 fL Normal 9.5-13.5 [facility] Comment on above: Performed By: #### C BC #### [facility] [address] [address] [address] Narendra Franks PLT 272 103/ul Normal 150-450 [facility] Comment on above: Performed By: #### C BC #### [facility] [address] [address] [address] Narendra Franks RBC 4.15 106/ul Critically low 4.20-5.40 [facility] Comment on above: Performed By: #### C BC #### [facility] [address] [address] [address] Narendra Franks WBC 8.0 103/ul Normal 4.0-11.0 [facility] Comment on above: Performed By: #### C BC #### [facility] [address] [address] [address] Narendra Franks CRPon 06-26-2022 CRP [Mass/Vol] mg/L Normal <=1.[address] [facility] Comment on above: Performed By: #### C RP #### [facility] [address] [address] [address] CSPINE WO CONon [...] YESSENIA HICKEY Date: 2022-06-26 21:58 Normal [facility] MONOon 06-26-2022 Monocytes (Bld) [#/Vol] Negative Normal NEGATIVE [facility] Comment on above: Performed By: #### M SHAILESH MORA #### [facility] [address] [place] [address] Dr. Narendra Franks PREG HCG QUALon 06-26-2022 , QUAL Negative Normal NEGATIVE [facility] Comment on above: Performed By: #### M MORGAN, PREG #### [facility] [address] [address] [address] Narendra Franks PROF CHEM 8 (BAS METB)on Anion gap [Moles/Vol] 9.8 mmol/L Normal [facility] Comment on above: Performed By: #### B MP #### [facility] [address] [address] [address] Narendra Franks Calcium [Mass/Vol] 8.5 mg/dL Normal 8.5-10.1 [facility] Comment on above: Performed By: #### B MP #### [facility] [address] [place] [address] Dr. Narendra Franks Chloride [Moles/Vol] 104 mmol/L Normal 98-107 [facility] Comment on above: Performed By: #### B MP #### [facility] [address] [address] [address] Narendra Franks CO2 [Moles/Vol] 28.0 mmol/L Normal 21.0-32.0 [facility] Comment on above: Performed By: #### B MP #### [facility] [address] [place] [address] Dr. Narendra Franks Creatinine [Mass/Vol] 0.77 mg/dL Normal 0.55-1.02 [facility] Comment on above: Performed By: #### B MP #### [facility] [address] [place] [address] Dr. Narendra Franks EGFR-AF CYMRAES >60 Normal >=60 [facility] Comment on above: Performed By: #### B MP #### [facility] [address] [place] [address] Dr. Narendra Franks EGFR-NON AF CYMRAES >60 Normal >=60 [facility] Comment on above: Performed By: #### B MP #### [facility] [address] [address] [address] Narendra Franks Glucose [Mass/Vol] 90 mg/dL Normal 74-106 [facility] Comment on above: Performed By: #### B MP #### [facility] [address] [address] [address] Narendra Franks Potassium [Moles/Vol] 3.8 mmol/L Normal 3.5-5.1 [facility] Comment on above: Performed By: #### B MP #### [facility] [address] [address] [address] Narendra Frnaks Sodium [Moles/Vol] 138 mmol/L Normal 136-145 [facility] Comment on above: Performed By: #### B MP #### [facility] [address] [address] [address] Narendra Franks Urea nitrogen [Mass/Vol] 15.0 mg/dL Normal 7.0-18.0 [facility] Comment on above: Performed By: #### B MP #### [facility] [address] [address] [address] Narendra Franks Urea nitrogen/Creatinine [Mass ratio] 19.5 mg/mg Normal [facility] Comment on above: Performed By: #### B MP #### [facility] [address] [address] [address] Narendra Franks SED RATE [facility] 2021 SED RATE 25 mm/hr Critically high <=20 [facility] Comment on above: Performed By: #### S EDR #### [facility] [address] [address] [address] Narendra Franks CYNTHIA WITH REFLEX TO ENAon CYNTHIA WITH REFLEX TO ANYI Negative Normal NEGATIVE [facility] Comment on above: Performed By: #### A NA #### [facility] [address] [place] [address] C-REACTIVE PROTEINon 019 CRP [Mass/Vol] mg/L Normal [facility] [place] Comment on above: Result Comment: REF VALUE < 1.00 Performed By: #### C RP #### [facility] [address] [place] [address] CITRULLINE ANTIBODYon 2018 CITRULLINE ANTIBODY <1 Normal [facility] Comment on above: Result Comment: [...] U/ML Performed By: #### C ITAB #### [facility] [address] [place] [address] HLA-B27 TYPINGon 04-29-2019 HLA-B27 TYPING Negative Normal [facility] [place] Comment on above: Result Comment: This test was developed without FDA review. The test performance characteristics were defined and validated by the [facility] Department of Pathology, under the accreditation guidelines of [facility]. Performed By: #### H [id number] #### [facility] [address] [place] [address] RHEUMATOID FACTORon 04-29-20 19 RHEUMATOID FACTOR <10 Normal 0 - 15 [facility] Comment on above: Performed By: #### R F #### [facility] [address] [place] [address] SEDIMENTATION RATE, ERYTHROC YTEon 04-29-2019 SEDIMENTATION RATE, ERYTHROCYTE 2 mm/h Normal 0 - 20 [facility] Comment on above: Performed By: #### E SRWS #### [facility] [address] [place] [address] Vital Signs Date Time Vital Sign Value Performing Clinician Facility 06-06-2023 09:05-0400 Body height 170.18 cm Valeria Claros Other [employer] Other 06-06-2023 09:05-0400 Body mass index (BMI) [Ratio] 29.19 kg/m2 Valeria Claros Other [employer] Other 06-06-2023 09:05-0400 Body temperature 98.5 [degF] Valeria Claros Other [employer] Other 06-06-2023 09:05-0400 Body weight 84.55 kg Valeria Claros Other [employer] Other 06-06-2023 09:05-0400 Diastolic blood pressure 96 mm[Hg] Valeria Claros Other [employer] Other 06-06-2023 09:05-0400 Respiratory rate 18 /min Valeria Claros Other [employer] Other 06-06-2023 09:05-0400 SaO2% (BldA) [Mass fraction] 98 % Valeria Claros Other [employer] Other 06-06-2023 09:05-0400 Systolic blood pressure 140 mm[Hg] Valeria Claros Other [employer] Other Encounters Encounter Date Encounter Type Care [...] 06-06-2023 End: 06-06-2023 ambulatory Valeria Claros Other [employer] Other Start: 06-06-2023 Office outpatient ne w 20 minutes Valeria Claros [facility] Start: 12-17-2022 End: 12-17-[address] ROBBIN SCHWARTZ . Facility: Start: 06-26-2022 End: 06-27-2022 ambulatory NONE LISTED REQUEST Facility: Payers Date Payer Category Payer Unknown [id number] 2.16.84 [id number] 1996 Unknown [id number] 2.16.84 [id number] 1996 Unknown [id number] 2.16.84 [id number] 1996 Unknown [id number] 2.16.84 [id number] 1996 Unknown [id number] 2.16.84 [id number] 1996 Unknown [id number] 2.16.84 [id number] 1996 Unknown [id number] 2.16.84 [id number] 1996 Unknown [id number] 2.16.84 0.1.372080.3.579.2.1259 1996 Unknown [id number] 2.16.84 0.1.303562.3.579.2.1259 1996 Unknown [id number] 2.16.84 0.1.990327.3.579.2.1259 1996 Unknown [id number] 2.16.840 .1.293137.3.579.2.1259 1996 Unknown [id number] 2.16.840 .[id number] 1996 Unknown [id number] 2.16.840 .[id number] 1959 Unknown [id number] Social History Date Type Detail Facility Unknown if ever smoked [employer] Other Sex Assigned At Sex Assigned At Bir th [employer] Other Evaluation note 06-06-2023 Note Date & [...] understanding and is agreeable with treatment plan [employer] Other History general Narrative - Reported Note [...] Hospitalization History migraine Hospitalization History child 2020 [employer] Other Summary Purpose Family History No Family History Records FoundNo Family History Records FoundNo Family History Records Found Advance Directives No Advanced Directives Records FoundNo Advanced Directives Records FoundNo Advanced Directives Records Found Additional Source Comments INFORMATION SOURCE (unrecogn ized section and content) DATE CREATED AUTHOR 07/19/2019 [facility] [place] DATE CREATED AUTHOR AUTHOR'S ORGANIZ ATION 12/29/2022 [facility] DATE CREATED AUTHOR AUTHOR'S ORGANIZ ATION 03/16/2024 [facility] EPIC REASON FOR VISIT (unrecogniz [...] BE BASED ON THE PRIMARY CLINICAL RECORDS. [facility] [employer] [facility]. provides no warranty or guarantee of the accuracy or completeness of information in this document.
[2024-03-23 08:15] VITALS: BP 139/74; PULSE 90
== END 2024-03-23 08:40 | disposition home or self-care (01) ==
LOC: US 07:00 → FBC 07:56
PROVIDERS: PCP Family Medicine; Visit Provider Obstetrics & Gynecology
DX: Z87.448 Personal history of other diseases of urinary system (principal)
CPT/HCPCS: 76818

== ENCOUNTER 2024-03-26 06:07 | Outpatient (OUT) | payer BC, SELFPAY ==
--- OUTSIDE RECORDS SUMMARY | 2024-03-26 06:10 | XMS_ITS | CCD ---
Author Organization [facility] Care Team Providers Care Base Ply Hand Name Role Phone REQUEST, DR NONE LISTED [...] Propensity to adverse reactions tingles, and itches [facility] Other Medications Current Medications Medication Drug Class(es) [...] 21 to 29on 12-24-2022 . . Normal [facility] Comment on above: Performed By: #### [id number] #### [facility] [address] [address] [address] Narendra Franks Age Gdln ACOG Testing [facility] Comment on above: Performed By: #### [id number] #### [facility] [address] [address] [address] Narendra Franks DIAGNOSIS: Comment [facility] Comment on above: Result Comment: NEGA TIVE FOR INTRAEPITHELIAL LESION OR MALIGNANCY. Performed By: #### [id number] #### [facility] [address] [address] [address] Narendra Franks Methodology: Comment [facility] Comment on above: Result Comment: This liquid based ThinPrep(R) pap test was screened with the use of an image guided system. Performed By: #### [id number] #### [facility] [address] [place] [address] Dr. Narendra Franks Note: Comment Normal [facility] Comment on above: Result Comment: The Pap smear is a screening test designed to aid in the detection of premalignant and malignant conditions of the uterine cervix. It is not a diagnostic procedure and should not be used as the sole means of detecting cervical cancer. Both false-positive and false-negative reports do occur. . Performed By: #### [id number] #### [facility] [address] [place] [address] Dr. Narendra Franks Performed by: Comment Normal [facility] Comment on above: Result Comment: Dhruv Smith, Top Precipitator Operator Helper (ASCP) Performed By: #### [id number] #### [facility] [address] [place] [address] Dr. Narendra Franks Reflex Criteria: Comment Normal [facility] Comment on above: Result Comment: The HPV DNA reflex criteria were not met with this specimen result therefore, no HPV testing was performed. . Performed By: #### [id number] #### [facility] [address] [place] [address] Dr. Narendra Franks Specimen adequacy: Comment Normal [facility] Comment on above: Result Comment: Sati sfactory for evaluation. Endocervical and/or squamous metaplastic cells (endocervical component) are present. Performed By: #### [id number] #### [facility] [address] [place] [address] Dr. Narendra Franks CBC AUTO DIFFon 06-26-2022 BASO # 0.0 103/ul Normal 0.0-0.1 [facility] Comment on above: Performed By: #### C BC #### [facility] [address] [place] [address] Dr. Narendra Franks Basophils/100 WBC (Bld) 0.4 % Normal 0.2-2.0 [facility] Comment on above: Performed By: #### C BC #### [facility] [address] [place] [address] Dr. Narendra Franks EO # 0.3 103/ul Normal 0.0-0.7 [facility] Comment on above: Performed By: #### C BC #### [facility] [address] [place] [address] Dr. Narendra Franks Eosinophils/100 WBC (Bld) 3.5 % Normal 0.9-7.0 [facility] Comment on above: Performed By: #### C BC #### [facility] [address] [place] [address] Dr. Narendra Franks Erythrocyte distribution width (RBC) [Ratio] 14.1 % Normal 11.0-15.0 [facility] Comment on above: Performed By: #### C BC #### [facility] [address] [place] [address] Dr. Narendra Franks Hematocrit (Bld) [Volume fraction] 38.2 % Normal 36.0-48.0 [facility] Comment on above: Performed By: #### C BC #### [facility] [address] [place] [address] Dr. Narendra Franks Hemoglobin (Bld) [Mass/Vol] 12.6 g/dL Normal 12.0-16.0 [facility] Comment on above: Performed By: #### C BC #### [facility] [address] [place] [address] Dr. Narendra Franks IG # 0.01 10e3/ul Normal 0.00-0.03 [facility] Comment on above: Performed By: #### C BC #### [facility] [address] [place] [address] Dr. Narendra Franks IG % 0.1 % Normal 0.0-0.5 [facility] Comment on above: Performed By: #### C BC #### [facility] [address] [place] [address] Dr. Narendra Franks LYMPH # 2.4 103/ul Normal 1.2-3.8 [facility] Comment on above: Performed By: #### C BC #### [facility] [address] [place] [address] Dr. Narendra Franks Lymphocytes/100 WBC (Bld) 30.4 % Normal 20.5-60.0 [facility] Comment on above: Performed By: #### C BC #### [facility] [address] [place] [address] Dr. Narendra Franks MANUAL DIFF REQ NO Normal [facility] Comment on above: Performed By: #### C BC #### [facility] [address] [place] [address] Dr. Narendra Frakns MCH (RBC) [Entitic mass] 30.4 pg Normal 26.7-34.0 [facility] Comment on above: Performed By: #### C BC #### [facility] [address] [place] [address] Dr. Narendra Franks MCHC (RBC) [Mass/Vol] 33.0 g/dL Normal 29.9-35.2 [facility] Comment on above: Performed By: #### C BC #### [facility] [address] [place] [address] Dr. Narendra Franks MCV (RBC) [Entitic vol] 92.0 fL Normal 81.0-99.0 [facility] Comment on above: Performed By: #### C BC #### [facility] [address] [place] [address] Dr. Narendra Franks MONO # 0.5 103/ul Normal 0.3-0.8 [facility] Comment on above: Performed By: #### C BC #### [facility] [address] [place] [address] Dr. Narendra Franks Monocytes/100 WBC (Bld) 6.3 % Normal 1.7-12.0 [facility] Comment on above: Performed By: #### C BC #### [facility] [address] [place] [address] Dr. Narendra Franks NEUT # 4.7 103/ul Normal 1.4-6.5 [facility] Comment on above: Performed By: #### C BC #### [facility] [address] [place] [address] Dr. Narendra Franks Neutrophils/100 WBC (Bld) 59.3 % Normal 43.0-75.0 [facility] Comment on above: Performed By: #### C BC #### [facility] [address] [address] [address] Narendra Franks Platelet mean volume (Bld) [Entitic vol] 10.5 fL Normal 9.5-13.5 [facility] Comment on above: Performed By: #### C BC #### [facility] [address] [address] [address] Narendra Franks PLT 272 103/ul Normal 150-450 [facility] Comment on above: Performed By: #### C BC #### [facility] [address] [address] [address] Narendra Franks RBC 4.15 106/ul Critically low 4.20-5.40 [facility] Comment on above: Performed By: #### C BC #### [facility] [address] [address] [address] Narendra Franks WBC 8.0 103/ul Normal 4.0-11.0 [facility] Comment on above: Performed By: #### C BC #### [facility] [address] [address] [address] Narendra Franks CRPon 06-26-2022 CRP [Mass/Vol] mg/L Normal <=1.0 [facility] Comment on above: Performed By: #### C RP #### [facility] [address] [address] [address] CSPINE WO CONon [...] Date: 2022-06-26 21:58 Normal [facility] MONOon 06-26-2022 Monocytes (Bld) [#/Vol] Negative Normal NEGATIVE [facility] Comment on above: Performed By: #### M SHAILESH MORA #### [facility] [address] [place] [address] Dr. Narendra Franks PREG HCG QUALon 06-26-2022 , QUAL Negative Normal NEGATIVE [facility] Comment on above: Performed By: #### M MORGAN, PREG #### [facility] [address] [address] [address] Narendra Franks PROF CHEM 8 (BAS METB)on Anion gap [Moles/Vol] 9.8 mmol/L Normal [facility] Comment on above: Performed By: #### B MP #### [facility] [address] [address] [address] Narendra Franks Calcium [Mass/Vol] 8.5 mg/dL Normal 8.5-10.1 [facility] Comment on above: Performed By: #### B MP #### [facility] [address] [place] [address] Dr. Narendra Franks Chloride [Moles/Vol] 104 mmol/L Normal 98-107 [facility] Comment on above: Performed By: #### B MP #### [facility] [address] [address] [address] Narendra Franks CO2 [Moles/Vol] 28.0 mmol/L Normal 21.0-32.0 [facility] Comment on above: Performed By: #### B MP #### [facility] [address] [place] [address] Dr. Narendra Franks Creatinine [Mass/Vol] 0.77 mg/dL Normal 0.55-1.02 [facility] Comment on above: Performed By: #### B MP #### [facility] [address] [place] [address] Dr. Narendra Franks EGFR-AF MAURITANIAN >60 Normal >=60 [facility] Comment on above: Performed By: #### B MP #### [facility] [address] [place] [address] Dr. Narendra Franks EGFR-NON AF MAURITANIAN >60 Normal >=60 [facility] Comment on above: Performed By: #### B MP #### [facility] [address] [address] [address] Narendra Franks Glucose [Mass/Vol] 90 mg/dL Normal 74-106 [facility] Comment on above: Performed By: #### B MP #### [facility] [address] [address] [address] Narendra Franks Potassium [Moles/Vol] 3.8 mmol/L Normal 3.5-5.1 [facility] Comment on above: Performed By: #### B MP #### [facility] [address] [address] [address] Narendra Franks Sodium [Moles/Vol] 138 mmol/L Normal 136-145 [facility] Comment on above: Performed By: #### B MP #### [facility] [address] [address] [address] Narendra Franks Urea nitrogen [Mass/Vol] 15.0 mg/dL Normal 7.0-18.0 [facility] Comment on above: Performed By: #### B MP #### [facility] [address] [address] [address] Narendra Franks Urea nitrogen/Creatinine [Mass ratio] 19.5 mg/mg Normal [facility] Comment on above: Performed By: #### B MP #### [facility] [address] [address] [address] Narendra Franks SED RATE [facility] 2021 SED RATE 25 mm/hr Critically high <=20 [facility] Comment on above: Performed By: #### S EDR #### [facility] [address] [address] [address] Narendra Franks CYNTHIA WITH REFLEX TO ENAon CYNTHIA WITH REFLEX TO ANYI Negative Normal NEGATIVE [facility] Comment on above: Performed By: #### A NA #### [facility] [address] [place] [address] C-REACTIVE PROTEINon 019 CRP [Mass/Vol] mg/L Normal [facility] Comment on above: Result Comment: REF VALUE < 1.00 Performed By: #### C RP #### [facility] [id number] [place] [address] CITRULLINE ANTIBODYon 2018 CITRULLINE ANTIBODY <1 Normal [facility] Comment on above: Result Comment: [...] U/ML Performed By: #### C ITAB #### [facility] [address] [place] [address] HLA-B27 TYPINGon 04-29-2019 HLA-B27 TYPING Negative Normal [facility] Comment on above: Result Comment: This test was developed without FDA review. The test performance characteristics were defined and validated by the [facility] Department of Pathology, under the accreditation guidelines of [facility]. Performed By: #### H [id number] #### [facility] [address] [place] [address] RHEUMATOID FACTORon 04-29-20 19 RHEUMATOID FACTOR <10 Normal 0 - 15 [facility] Comment on above: Performed By: #### R F #### [facility] [address] [place] [address] SEDIMENTATION RATE, ERYTHROC YTEon 04-29-2019 SEDIMENTATION RATE, ERYTHROCYTE 2 mm/h Normal 0 - 20 [facility] Comment on above: Performed By: #### E SRWS #### [facility] [address] [place] [address] Vital Signs Date Time Vital Sign Value Performing Clinician Facility 06-06-2023 09:05-0400 Body height 170.18 cm Valeria Claros [facility] Other 06-06-2023 09:05-0400 Body mass index (BMI) [Ratio] 29.19 kg/m2 Valeria Claros Other [facility] Other 06-06-2023 09:05-0400 Body temperature 98.5 [degF] Valeria Claros Other [facility] Other 06-06-2023 09:05-0400 Body weight 84.55 kg Valeria Claros Other [facility] Other 06-06-2023 09:05-0400 Diastolic blood pressure 96 mm[Hg] Valeria Claros Other [facility] Other 06-06-2023 09:05-0400 Respiratory rate 18 /min Valeria Claros Other [facility] Other 06-06-2023 09:05-0400 SaO2% (BldA) [Mass fraction] 98 % Valeria Claros Other [facility] Other 06-06-2023 09:05-0400 Systolic blood pressure 140 mm[Hg] Valeria Claros Other [facility] Other Encounters Encounter Date Encounter Type Care [...] 06-06-2023 End: 06-06-2023 ambulatory Valeria Claros Other [facility] Other Start: 06-06-2023 Office outpatient ne w 20 minutes Valeria Claros [facility] Start: 12-17-2022 End: 12-17-[address] ROBBIN SCHWARTZ . Facility: Start: 06-26-2022 End: 06-27-2022 ambulatory NONE LISTED REQUEST Facility: Payers Date Payer Category Payer Unknown [id number] 2.16.84 [id number] 1996 Unknown [id number] 2.16.84 [id number] 1996 Unknown [id number] 2.16.84 [id number] 1996 Unknown [id number] 2.16.84 [id number] 1996 Unknown [id number] 2.16.84 [id number] 1996 Unknown [id number] 2.16.84 [id number] 1996 Unknown [id number] 2.16.84 0.1.145560.3.579.2.1259 1996 Unknown [id number] 2.16.84 0.1.011031.3.579.2.1259 1996 Unknown [id number] 2.16.84 0.1.243115.3.579.2.1259 1996 Unknown [id number] 2.16.84 0.1.150243.3.579.2.1259 1996 Unknown [id number] 2.16.840 .[id number] 1996 Unknown [id number] 2.16.840 .[id number] 1996 Unknown [id number] 2.16.840 .[id number] 1959 Unknown [id number] Social History Date Type Detail Facility Unknown if ever smoked [facility] Other Sex Assigned At Sex Assigned At Bir th [facility] Other Evaluation note 06-06-2023 Note Date & [...] understanding and is agreeable with treatment plan [facility] Other History general Narrative - Reported Note [...] Hospitalization History migraine Hospitalization History child 2020 [facility] Other Summary Purpose Family History No Family History Records FoundNo Family History Records FoundNo Family History Records Found Advance Directives No Advanced Directives Records FoundNo Advanced Directives Records FoundNo Advanced Directives Records Found Additional Source Comments INFORMATION SOURCE (unrecogn ized section and content) DATE CREATED AUTHOR 07/19/2019 [facility] DATE CREATED AUTHOR AUTHOR'S ORGANIZ ATION 12/29/2022 [facility] DATE CREATED AUTHOR AUTHOR'S ORGANIZ ATION 03/16/2024 [facility] EPIC REASON FOR [...] BE BASED ON THE PRIMARY CLINICAL RECORDS. [facility]. provides no warranty or guarantee of the accuracy or completeness of information in this document.
[2024-03-26 08:32] VITALS: BP 141/88; PULSE 88
[2024-03-26 08:43] VITALS: BP 145/88; PULSE 90
== END 2024-03-26 08:46 | disposition home or self-care (01) ==
LOC: FBCO 06:08 → FBC 08:09
PROVIDERS: PCP Family Medicine; Visit Provider Obstetrics & Gynecology
DX: O36.5990 Maternal care for other known or suspected poor fetal growth, unspecified trimester, not applicable or unspecified (principal)
CPT/HCPCS: 59025

== ENCOUNTER 2024-03-30 10:41 | Inpatient (IN) | payer BC, SELFPAY ==
[2024-03-30] VITALS (14 sets, daily range): BP systolic 105–156; BP diastolic 56–100; PULSE 70–104
--- OUTSIDE RECORDS SUMMARY | 2024-03-30 07:03 | XMS_ITS | CCD ---
Author Organization [facility] Care Team Providers Care Blindmaker Name Role Phone REQUEST, DR NONE LISTED [...] SCHWARTZ Attending Unavailable ROMINA NELSON Attending Unavailable LYYL YOUSIF Referring Unavailable ADELAIDE BOJORQUEZ Attending Unavailable LYLY YOUSIF Referring Unavailable KING YO Attending Unavailable ROBBIN SCHWARTZ Attending Unavailable Allergies Allergy Classification Reported Allergen(s) Allergy Type Date of Onset Reaction(s) Facility (1 source) Raspberry Propensity to adverse reactions tingles, and itches [facility] Other Medications Current Medications Medication Drug Class(es) [...] 21 to 29on 12-24-2022 . . Normal [facility] Comment on above: Performed By: #### [id number] #### [facility] [address] [address] [address] Narendra Franks Age Gdln ACOG Testing [facility] Comment on above: Performed By: #### [id number] #### [facility] [address] [address] [address] Narendra Franks DIAGNOSIS: Comment [facility] Comment on above: Result Comment: NEGA TIVE FOR INTRAEPITHELIAL LESION OR MALIGNANCY. Performed By: #### [id number] #### [facility] [address] [address] [address] Narendra Franks Methodology: Comment [facility] Comment on above: Result Comment: This liquid based ThinPrep(R) pap test was screened with the use of an image guided system. Performed By: #### [id number] #### [facility] [address] [place] [address] Dr. Narendra Franks Note: Comment Normal [facility] Comment on above: Result Comment: The Pap smear is a screening test designed to aid in the detection of premalignant and malignant conditions of the uterine cervix. It is not a diagnostic procedure and should not be used as the sole means of detecting cervical cancer. Both false-positive and false-negative reports do occur. . Performed By: #### [id number] #### [facility] [address] [place] [address] Dr. Narendra Franks Performed by: Comment Normal [facility] Comment on above: Result Comment: Dhruv Smith, Carbide Powder Processor (ASCP) Performed By: #### [id number] #### [facility] [address] [place] [address] Dr. Narendra Franks Reflex Criteria: Comment Normal [facility] Comment on above: Result Comment: The HPV DNA reflex criteria were not met with this specimen result therefore, no HPV testing was performed. . Performed By: #### [id number] #### [facility] [address] [place] [address] Dr. Narendra Franks Specimen adequacy: Comment Normal [facility] Comment on above: Result Comment: Sati sfactory for evaluation. Endocervical and/or squamous metaplastic cells (endocervical component) are present. Performed By: #### [id number] #### [facility] [address] [place] [address] Dr. Narendra Franks CBC AUTO DIFFon 06-26-2022 BASO # 0.0 103/ul Normal 0.0-0.1 [facility] Comment on above: Performed By: #### C BC #### [facility] [address] [place] [address] Dr. Narendra Franks Basophils/100 WBC (Bld) 0.4 % Normal 0.2-2.0 [facility] Comment on above: Performed By: #### C BC #### [facility] [address] [place] [address] Dr. Narendra Franks EO # 0.3 103/ul Normal 0.0-0.7 [facility] Comment on above: Performed By: #### C BC #### [facility] [address] [place] [address] Dr. Narendra Franks Eosinophils/100 WBC (Bld) 3.5 % Normal 0.9-7.0 [facility] Comment on above: Performed By: #### C BC #### [facility] [address] [place] [address] Dr. Narendra Franks Erythrocyte distribution width (RBC) [Ratio] 14.1 % Normal 11.0-15.0 [facility] Comment on above: Performed By: #### C BC #### [facility] [address] [place] [address] Dr. Narendra Franks Hematocrit (Bld) [Volume fraction] 38.2 % Normal 36.0-48.0 [facility] Comment on above: Performed By: #### C BC #### [facility] [address] [place] [address] Dr. Narendra Franks Hemoglobin (Bld) [Mass/Vol] 12.6 g/dL Normal 12.0-16.0 [facility] Comment on above: Performed By: #### C BC #### [facility] [address] [place] [address] Dr. Narendra Franks IG # 0.01 10e3/ul Normal 0.00-0.03 [facility] Comment on above: Performed By: #### C BC #### [facility] [address] [place] [address] Dr. Narendra Franks IG % 0.1 % Normal 0.0-0.5 [facility] Comment on above: Performed By: #### C BC #### [facility] [address] [place] [address] Dr. Narendra Franks LYMPH # 2.4 103/ul Normal 1.2-3.8 [facility] Comment on above: Performed By: #### C BC #### [facility] [address] [place] [address] Dr. Narendra Franks Lymphocytes/100 WBC (Bld) 30.4 % Normal 20.5-60.0 [facility] Comment on above: Performed By: #### C BC #### [facility] [address] [place] [address] Dr. Narendra Franks MANUAL DIFF REQ NO Normal [facility] Comment on above: Performed By: #### C BC #### [facility] [address] [place] [address] Dr. Narendra Franks MCH (RBC) [Entitic mass] 30.4 pg Normal 26.7-34.0 [facility] Comment on above: Performed By: #### C BC #### [facility] [address] [place] [address] Dr. Narendra Franks MCHC (RBC) [Mass/Vol] 33.0 g/dL Normal 29.9-35.2 [facility] Comment on above: Performed By: #### C BC #### [facility] [address] [place] [address] Dr. Narendra Franks MCV (RBC) [Entitic vol] 92.0 fL Normal 81.0-99.0 [facility] Comment on above: Performed By: #### C BC #### [facility] [address] [place] [address] Dr. Narendra Franks MONO # 0.5 103/ul Normal 0.3-0.8 [facility] Comment on above: Performed By: #### C BC #### [facility] [address] [place] [address] Dr. Narendra Franks Monocytes/100 WBC (Bld) 6.3 % Normal 1.7-12.0 [facility] Comment on above: Performed By: #### C BC #### [facility] [address] [place] [address] Dr. Narendra Franks NEUT # 4.7 103/ul Normal 1.4-6.5 [facility] Comment on above: Performed By: #### C BC #### [facility] [address] [place] [address] Dr. Narendra Franks Neutrophils/100 WBC (Bld) 59.3 % Normal 43.0-75.0 [facility] Comment on above: Performed By: #### C BC #### [facility] [address] [address] [address] Narendra Franks Platelet mean volume (Bld) [Entitic vol] 10.5 fL Normal 9.5-13.5 [facility] Comment on above: Performed By: #### C BC #### [facility] [address] [address] [address] Narendra Franks PLT 272 103/ul Normal 150-450 [facility] Comment on above: Performed By: #### C BC #### [facility] [address] [address] [address] Narendra Franks RBC 4.15 106/ul Critically low 4.20-5.40 [facility] Comment on above: Performed By: #### C BC #### [facility] [address] [address] [address] Narendra Franks WBC 8.0 103/ul Normal 4.0-11.0 [facility] Comment on above: Performed By: #### C BC #### [facility] [address] [address] [address] Narendra Franks CRPon 06-26-2022 CRP [Mass/Vol] mg/L Normal <=1.0 [facility] Comment on above: Performed By: #### C RP #### [facility] [address] [address] [address] CSPINE WO CONon [...] YESSENIA HICKEY Date: 2022-06-26 21:58 Normal [facility] MONOon 06-26-2022 Monocytes (Bld) [#/Vol] Negative Normal NEGATIVE [facility] Comment on above: Performed By: #### M SHAILESH MORA #### [facility] [address] [place] [address] Dr. Narendra Franks PREG HCG QUALon 06-26-2022 , QUAL Negative Normal NEGATIVE [facility] Comment on above: Performed By: #### M MORGAN, PREG #### [facility] [address] [address] [address] Narendra Franks PROF CHEM 8 (BAS METB)on Anion gap [Moles/Vol] 9.8 mmol/L Normal [facility] Comment on above: Performed By: #### B MP #### [facility] [address] [address] [address] Narendra Franks Calcium [Mass/Vol] 8.5 mg/dL Normal 8.5-10.1 [facility] Comment on above: Performed By: #### B MP #### [facility] [address] [place] [address] Dr. Narendra Franks Chloride [Moles/Vol] 104 mmol/L Normal 98-107 [facility] Comment on above: Performed By: #### B MP #### [facility] [address] [address] [address] Narendra Franks CO2 [Moles/Vol] 28.0 mmol/L Normal 21.0-32.0 The [facility] Comment on above: Performed By: #### B MP #### [facility] [address] [place] [address] Dr. Narendra Franks Creatinine [Mass/Vol] 0.77 mg/dL Normal 0.55-1.02 [facility] Comment on above: Performed By: #### B MP #### [facility] [address] [place] [address] Dr. Narendra Franks EGFR-AF [place] >60 Normal >=60 [facility] Comment on above: Performed By: #### B MP #### [facility] [address] [place] [address] Dr. Narendra Franks EGFR-NON AF [place] >60 Normal >=60 [facility] Comment on above: Performed By: #### B MP #### [facility] [address] [address] [address] Narendra Franks Glucose [Mass/Vol] 90 mg/dL Normal 74-106 [facility] Comment on above: Performed By: #### B MP #### [facility] [address] [address] [address] Narendra Franks Potassium [Moles/Vol] 3.8 mmol/L Normal 3.5-5.1 [facility] Comment on above: Performed By: #### B MP #### [facility] [address] [address] [address] Narendra Franks Sodium [Moles/Vol] 138 mmol/L Normal 136-145 [facility] Comment on above: Performed By: #### B MP #### [facility] [address] [address] [address] Narendra Franks Urea nitrogen [Mass/Vol] 15.0 mg/dL Normal 7.0-18.0 [facility] Comment on above: Performed By: #### B MP #### [facility] [address] [address] [address] Narendra Franks Urea nitrogen/Creatinine [Mass ratio] 19.5 mg/mg Normal [facility] Comment on above: Performed By: #### B MP #### [facility] [address] [address] [address] Narendra Franks SED RATE [facility] 2021 SED RATE 25 mm/hr Critically high <=20 [facility] Comment on above: Performed By: #### S EDR #### [facility] [address] [address] [address] Narendra Franks CYNTHIA WITH REFLEX TO ENAon CYNTHIA WITH REFLEX TO ANYI Negative Normal NEGATIVE [facility] Comment on above: Performed By: #### A NA #### [facility] [address] [place] [address] C-REACTIVE PROTEINon 019 CRP [Mass/Vol] mg/L Normal [facility] Comment on above: Result Comment: REF VALUE < 1.00 Performed By: #### C RP #### [facility] [address] [place] [address] CITRULLINE ANTIBODYon 2018 CITRULLINE ANTIBODY <1 Normal [facility] Comment on above: Result Comment: THE TEST [...] U/ML Performed By: #### C ITAB #### [facility] [address] [place] [address] HLA-B27 TYPINGon 04-29-2019 HLA-B27 TYPING Negative Normal [facility] Comment on above: Result Comment: This test was developed without FDA review. The test performance characteristics were defined and validated by the [facility] Department of Pathology, under the accreditation guidelines of [facility]. Performed By: #### H LB27 #### [facility] [address] [place] [address] RHEUMATOID FACTORon 04-29-20 19 RHEUMATOID FACTOR <10 Normal 0 - 15 [facility] Comment on above: Performed By: #### R F #### [facility] [address] [place] [address] SEDIMENTATION RATE, ERYTHROC YTEon 04-29-2019 SEDIMENTATION RATE, ERYTHROCYTE 2 mm/h Normal 0 - 20 [facility] Comment on above: Performed By: #### E SRWS #### [facility] [address] [place] [address] Vital Signs Date Time Vital Sign Value Performing Clinician Facility 06-06-2023 09:05-0400 Body height 170.18 cm Valeria Claros Other [facility] Other 06-06-2023 09:05-0400 Body mass index (BMI) [Ratio] 29.19 kg/m2 Valeria Claros Other [facility] Other 06-06-2023 09:05-0400 Body temperature 98.5 [degF] Valeria Claros Other [facility] Other 06-06-2023 09:05-0400 Body weight 84.55 kg Valeria Claros Other [facility] Other 06-06-2023 09:05-0400 Diastolic blood pressure 96 mm[Hg] Valeria Claros Other [facility] Other 06-06-2023 09:05-0400 Respiratory rate 18 /min Valeria Claros Other [facility] Other 06-06-2023 09:05-0400 SaO2% (BldA) [Mass fraction] 98 % Valeria Claros Other [facility] Other 06-06-2023 09:05-0400 Systolic blood pressure 140 mm[Hg] Valeria Claros Other [facility] Other Encounters Encounter Date Encounter Type Care [...] 06-06-2023 End: 06-06-2023 ambulatory Valeria Claros Other [facility] Other Start: 06-06-2023 Office outpatient ne w 20 minutes Valeria Claros [facility] Start: 12-17-2022 End: 12-17-[address] ROBBIN SCHWARTZ . Facility: Start: 06-26-2022 End: 06-27-2022 ambulatory NONE LISTED REQUEST Facility: Payers Date Payer Category Payer Unknown [id number] 2.16.84 [id number] 1995 Unknown [id number] 2.16.84 [id number] 1996 Unknown [id number] 2.16.84 [id number] 1996 Unknown [id number] 2.16.84 [id number] 1996 Unknown [id number] 2.16.84 [id number] 1996 Unknown [id number] 2.16.84 [id number] 1996 Unknown [id number] 2.16.84 [id number] 1996 Unknown [id number] 2.16.84 [id number] 1996 Unknown [id number] 2.16.84 0.1.444901.3.579.2.1259 1996 Unknown [id number] 2.16.84 0.1.173367.3.579.2.1259 1996 Unknown [id number] 2.16.840 .[id number] 1996 Unknown [id number] 2.16.840 .[id number] 1996 Unknown [id number] 2.16.840 .[id number] 1959 Unknown [id number] Social History Date Type Detail Facility Unknown if ever smoked [facility] Other Sex Assigned At Sex Assigned At Bir th [facility] Other Evaluation note 06-06-2023 Note Date & [...] understanding and is agreeable with treatment plan [facility] Other History general Narrative - Reported Note [...] Hospitalization History migraine Hospitalization History child 2020 [facility] Other Summary Purpose Family History No Family [...] DATE CREATED AUTHOR AUTHOR'S ORGANIZ ATION 03/16/2024 [facility] EPIC REASON FOR VISIT (unrecogniz [...] BE BASED ON THE PRIMARY CLINICAL RECORDS. [facility]. provides no warranty or guarantee of the accuracy or completeness of information in this document.
--- NOTE | 2024-03-30 08:02 | US_ITS ---
[address] [id number] Patient Name: RACHEAL CARVALHO MRN: [id number] date: 1995 Sex: F Assigned Patient Location: [facility] Current Patient Location: [facility] Accession/Order Number: [id number] Exam Date: 03/30/2024 08:03 Report Date: 03/30/2024 09:13 At the request of: ROBBIN SCHWARTZ Procedure: US OB BPP w non-stress EXAMINATION: US OB BPP w non-stress HISTORY:History of kidney disease Z87.448 COMPARISON: No relevant comparison available. TECHNIQUE: Ultrasound biophysical profile was performed in the radiology department. BREATHING MOVEMENTS: 2 GROSS BODY MOVEMENTS: 2 TONE: 2 QUALITATIVE AMNIOTIC FLUID VOLUME: 2 PRESENTATION: CEPHALIC HEART RATE: 134.33 bpm AMNIOTIC FLUID VOLUME: 15.64 cm GESTATIONAL AGE: 89 Day US/US OB BPP w non-stress IMPRESSION: Total biophysical profile score: 8 Electronically authenticated by: CHELSEA SCHULTE Date: 03/30/2024 09:13
--- NOTE | 2024-03-30 08:02 | US_ITS ---
[address] [address] Patient Name: RACHEAL CARVALHO MRN: [id number] date: 1995 Sex: F Assigned Patient Location: [facility] Current Patient Location: [facility] Accession/Order Number: [id number] Exam Date: 03/30/2024 08:03 Report Date: 03/30/2024 09:17 At the request of: ROBBIN SCHWARTZ Procedure: US OB growth EXAMINATION: US OB growth HISTORY: Pre-eclampsia in prior O09.299 COMPARISON: Ultrasound OB growth 03/01/2024 FINDINGS: Heart Rate: 134.33 bpm Amniotic Fluid Volume: 15.6 cm (normal range) Number: 1 Position: CEPHALIC BIOMETRY: BPD: 9.03 cm cm; ; 74.40 %% HC: 33.35 cm cm; ; 71.20 %% AC: 37.11 cm cm; ; 97 %% FL: 7.16 cm cm; ; 64.20 %% EFW: 3726.56 g; 97 % FL/AC: 19.31 FL/BPD: 79.34 HC/AC: 0.90 GESTATIONAL AGE: Age by EDC: 36 weeks 0 days BEBE by EDC: 2024-04-27 Age by US: 38 weeks 1 day BEBE by US: 2024-04-12 US/US OB growth IMPRESSION: 1. Single live intrauterine with growth detailed above. 2. weight and abdominal circumference is greater than 97th percentile. 3. Both kidneys appear prominent (5.5 x 2.9 x 3.4 cm on right; 5.5 x 2.7 x 3.6 cm on left). Electronically authenticated by: CHELSEA SCHULTE Date: 03/30/2024 09:17
[2024-03-30] MEDS: BETAMETHASONE ACE/BETAMETHASONE SOD PHOS 30 MG/5 ML 12 MG IM (08:31)
[2024-03-30 10:39] LABS: Eosinophils Absolute Auto 0.1 10^3/uL (0.0-0.7); Eosinophils Percent Auto 1.6 % (0.9-7.0); Hematocrit 38.6 % (36.0-48.0); Hemoglobin 13.2 g/dL (12.0-16.0); Immature Granulocytes Abs Auto 0.05 10^3/uL (0.00-0.03); Immature Granulocytes Pct Auto 0.6 % (0.0-0.5); Lymphocytes Absolute Auto 0.9 10^3/uL (1.2-3.8); Lymphocytes Percent Auto 9.8 % (20.5-60.0); Mean Corpuscular HGB Conc 34.2 g/dL (29.9-35.2); Mean Corpuscular Hemoglobin 33.1 pg (26.7-34.0); Mean Corpuscular Volume 96.7 fL (81.0-99.0); Monocytes Absolute Auto 0.4 10^3/uL (0.3-0.8); Monocytes Percent Auto 4.2 % (1.7-12.0); Neutrophils Absolute Auto 7.3 10^3/uL (1.4-6.5); Neutrophils Percent Auto 83.8 % (43.0-75.0); Platelet Count 188 10^3/uL (150-450); Red Blood Count 3.99 10^6/uL (4.20-5.40); Red Cell Distribution Width 12.7 % (11.0-15.0); White Blood Count 8.7 10^3/uL (4.0-11.0)
[2024-03-30 10:59] LABS: Amphetamine Screen Urine NEGATIVE (NEGATIVE); Barbiturates Screen Urine NEGATIVE (NEGATIVE); Benzodiazepines Screen Urine NEGATIVE (NEGATIVE); Buprenorphine Screen Urine NEGATIVE (NEGATIVE); Cannabinoid Screen Urine NEGATIVE (NEGATIVE); Cocaine Screen Urine NEGATIVE (NEGATIVE); Methadone Screen Urine NEGATIVE (NEGATIVE); Methamphetamines Screen Urine NEGATIVE (NEGATIVE); Opiate Screen Urine NEGATIVE (NEGATIVE); Oxycodone Screen Urine NEGATIVE (NEGATIVE); Phencyclidine Screen Urine NEGATIVE (NEGATIVE); Tricyclic Antidepressant Urine NEGATIVE (NEGATIVE)
--- OUTSIDE RECORDS SUMMARY | 2024-03-30 11:01 | XMS_ITS ---
Patient Summarization (C-CDA 2.1 CCD) Created on: March 30, 2024 RACHEAL CARVALHO : 1995 Sex: Female Author Organization Sample organization Care Team Providers Care Notereader Name Role Phone REQUEST, DR NONE LISTED Primary Care Unavaila jessica ARVIZU, DR RAMONA Ramirez Admitting Unavailable NOLBERTO, DR RAMONA Ramirez Attending Unavailable NOLBERTO, DR RAMONA Ramirez Consulting Unavailable FEI ., HILDA ORTEGA Consulting UnavailYessenia Sethi Consulting Unavailable EFREN ., DR SIEGEL Admitting Unavailable EFREN ., DR SIEGEL Attending Unavailable NEERAJ, DR NONE LISTED Primary Care Unavaila ble EFREN ., DR SIEGEL Consulting Unavailable Valeria Clraos Unavailable ROBBIN SCHWARTZ Attending Unavailable EFREN, ROBBIN Attending Unavailable KING YO Attending Unavailable EFREN, ROBBIN Attending Unavailable KING YO Attending Unavailable EFREN, ROBBIN Attending Unavailable ROMINA NELSON Attending Unavailable LYLY YOUSIF Referring Unavailable ADELAIDE BOJORQUEZ Attending Unavailable LYLY YOUSIF Referring Unavailable KING YO Attending Unavailable EFREN, ROBBIN Attending Unavailable Allergies Allergy Classification Reported Allergen(s) Allergy Type Date of Onset Reaction(s) Facility (1 source) Raspberry Propensity to adverse reactions tingles, and itches [facility] Other Encounters Encounter Date Encounter Type Care [...] Available Start: 11-18-2023 End: 11-18-2023 ambulatory ROBBIN SCHWARTZ Not Available Start: 10-21-2023 End: 10-21-2023 ambulatory ROBBIN SCHWARTZ Not Available Start: 09-18-2023 End: 09-18-2023 ambulatory ROBBIN SCHWARTZ Not Available Start: 09-14-2023 End: 09-14-2023 ambulatory ADELAIDE BOJORQUEZ Not Available Start: 09-09-2023 End: 09-09-2023 ambulatory ROMINA NELSON Not Available Start: 06-06-2023 End: 06-06-2023 ambulatory Valeria Claros Other [facility] Other Start: 06-06-2023 Office outpatient ne w 20 minutes Valeria Claros [facility] [place] Start: 12-17-2022 End: 12-17-[address] ROBBIN SCHWARTZ . Facility: Start: 06-26-2022 End: 06-27-2022 ambulatory NONE LISTED REQUEST Facility: Medications Current Medications Medication Drug Class(es) Dates Sig (Normalized) Sig (Original) methylPREDNISolone 4 mg oral tablet (1 source) Corticosteroid Start: methylPREDNISolone 4 MG as directed Orally for daily dose take half with breakfast, half with dinner for 6 days May, Active Payers Date Payer Category Payer Unknown [id number] 2.16.84 [id number] 1995 Unknown [id number] 2.16.84 [id number] 1995 Unknown [id number] 2.16.84 [id number] 1996 Unknown [id number] 2.16.84 0.1.994076.3.579.2.1259 1996 Unknown [id number] 2.16.84 0.1.265123.3.579.2.1259 1996 Unknown [id number] 2.16.84 [id number] 1996 Unknown [id number] 2.16.84 0.1.930276.3.579.2.1259 1996 Unknown [id number] 2.16.84 0.1.491032.3.579.2.9 1996 Unknown [id number] 2.16.84 0.1.163546.3.579.2.9 1996 Unknown [id number] 2.16.84 0.1.175425.3.579.2.1258 1996 Unknown [id number] 2.16.840 .1.145787.3.579.2.9 1996 Unknown [id number] 2.16.840 .1.302918.3.579.2.9 1996 Unknown [id number] 2.16.840 .[id number] 1959 Unknown [id number] Problems Problem Classification Problem Date Documented Da [...] 21 to 29on 12-24-2022 . . Normal [facility] Comment on above: Performed By: #### [id number] #### [facility] [address] [place] [address] Dr. Narendra Franks Age Gdln ACOG Testing [facility] Comment on above: Performed By: #### 4 [id number] #### [facility] [address] [place] [address] Dr. Narendra Franks DIAGNOSIS: Comment [facility] Comment on above: Result Comment: NEGA TIVE FOR INTRAEPITHELIAL LESION OR MALIGNANCY. Performed By: #### [id number] #### [facility] [address] [place] [address] Dr. Narendra Franks Methodology: Comment [facility] Comment on above: Result Comment: This liquid based ThinPrep(R) pap test was screened with the use of an image guided system. Performed By: #### 4 [id number] #### [facility] [address] [place] [address] Dr. Narendra Franks Note: Comment [facility] Comment [...] do occur. . Performed By: #### 4 [id number] #### [facility] [address] [place] [address] Dr. Narendra Franks Performed by: Comment [facility] Comment on above: Result Comment: Dhruv Smith, Sales Account Specialist (ASCP) Performed By: #### [id number] #### [facility] [address] [place] [address] Dr. Narendra Franks Reflex Criteria: Comment Normal [facility] Comment on above: Result Comment: The HPV DNA reflex criteria were not met with this specimen result therefore, no HPV testing was performed. . Performed By: #### 4 [id number] #### [facility] [address] [place] [address] Dr. Narendra Franks Specimen adequacy: Comment Normal [facility] Comment on above: Result Comment: Sati sfactory for evaluation. Endocervical and/or squamous metaplastic cells (endocervical component) are present. Performed By: #### 4 [id number] #### [facility] [address] [place] [address] Dr. Narendra Franks CBC AUTO DIFFon 06-26-2022 BASO # 0.0 103/ul Normal 0.0-0.1 [facility] Comment on above: Performed By: #### C BC #### [facility] [address] [place] [address] Dr. Narendra Franks Basophils/100 WBC (Bld) 0.4 % Normal 0.2-2.0 [facility] Comment on above: Performed By: #### C BC #### [facility] [address] [place] [address] Dr. Narendra Franks EO # 0.3 103/ul Normal 0.0-0.7 [facility] Comment on above: Performed By: #### C BC #### [facility] [address] [place] [address] Dr. Narendra Franks Eosinophils/100 WBC (Bld) 3.5 % Normal 0.9-7.0 [facility] Comment on above: Performed By: #### C BC #### [facility] [address] [place] [address] Dr. Narendra Franks Erythrocyte distribution width (RBC) [Ratio] 14.1 % Normal 11.0-15.0 [facility] Comment on above: Performed By: #### C BC #### [facility] [address] [place] [address] Dr. Narendra Franks Hematocrit (Bld) [Volume fraction] 38.2 % Normal 36.0-48.0 [facility] Comment on above: Performed By: #### C BC #### [facility] [address] [place] [address] Dr. Narendra Franks Hemoglobin (Bld) [Mass/Vol] 12.6 g/dL Normal 12.0-16.0 [facility] Comment on above: Performed By: #### C BC #### [facility] [address] [place] [address] Dr. Narendra Franks IG # 0.01 10e3/ul Normal 0.00-0.03 [facility] Comment on above: Performed By: #### C BC #### [facility] [address] [place] [address] Dr. Narendra Franks IG % 0.1 % Normal 0.0-0.5 [facility] Comment on above: Performed By: #### C BC #### [facility] [address] [place] [address] Dr. Narendra Franks LYMPH # 2.4 103/ul Normal 1.2-3.8 [facility] Comment on above: Performed By: #### C BC #### [facility] [address] [place] [address] Dr. Narendra Franks Lymphocytes/100 WBC (Bld) 30.4 % Normal 20.5-60.0 [facility] Comment on above: Performed By: #### C BC #### [facility] [address] [place] [address] Dr. Narendra Franks MANUAL DIFF REQ NO Normal [facility] Comment on above: Performed By: #### C BC #### [facility] [address] [place] [address] Dr. Narendra Franks MCH (RBC) [Entitic mass] 30.4 pg Normal 26.7-34.0 [facility] Comment on above: Performed By: #### C BC #### [facility] [address] [place] [address] Dr. Narendra Franks MCHC (RBC) [Mass/Vol] 33.0 g/dL Normal 29.9-35.2 [facility] Comment on above: Performed By: #### C BC #### [facility] [address] [address] [address] Narendra Franks MCV (RBC) [Entitic vol] 92.0 fL Normal 81.0-99.0 [facility] Comment on above: Performed By: #### C BC #### [facility] [address] [address] [address] Narendra Franks MONO # 0.5 103/ul Normal 0.3-0.8 [facility] Comment on above: Performed By: #### C BC #### [facility] [address] [address] [address] Narendra Franks Monocytes/100 WBC (Bld) 6.3 % Normal 1.7-12.0 [facility] Comment on above: Performed By: #### C BC #### [facility] [address] [address] [address] Narendra Franks NEUT # 4.7 103/ul Normal 1.4-6.5 [facility] Comment on above: Performed By: #### C BC #### [facility] [address] [address] [address] Narendra Franks Neutrophils/100 WBC (Bld) 59.3 % Normal 43.0-75.0 [facility] Comment on above: Performed By: #### C BC #### [facility] [address] [address] [address] Narendra Franks Platelet mean volume (Bld) [Entitic vol] 10.5 fL Normal 9.5-13.5 [facility] Comment on above: Performed By: #### C BC #### [facility] [address] [address] [address] Narendra Franks PLT 272 103/ul Normal 150-450 [facility] Comment on above: Performed By: #### C BC #### [facility] [address] [address] [address] Narendra Franks RBC 4.15 106/ul Critically low 4.20-5.40 [facility] Comment on above: Performed By: #### C BC #### [facility] [address] [place], [place] [address] Dr. Narendra Franks WBC 8.0 103/ul Normal 4.0-11.0 [facility] Comment on above: Performed By: #### C BC #### [facility] [address] [place], [place] [address] Dr. Narendra Franks CRPon 06-26-2022 CRP [Mass/Vol] mg/L Normal <=1.0 [facility] [place] Comment on above: Performed By: #### C RP #### [facility] [address] [place], [place] [address] CSPINE WO CONon [...] YESSENIA HICKEY Date: 2022-06-26 21:58 Normal [facility] MONOon 06-26-2022 Monocytes (Bld) [#/Vol] Negative Normal NEGATIVE [facility] Comment on above: Performed By: #### M MORGAN, PREG #### [facility] [address] [address] [address] Narendra Franks PREG HCG QUALon 06-26-2022 , QUAL Negative Normal NEGATIVE [facility] Comment on above: Performed By: #### M MORGAN, PREG #### [facility] [address] [address] [address] Narendra Franks PROF CHEM 8 (BAS METB)on Anion gap [Moles/Vol] 9.8 mmol/L Normal [facility] Comment on above: Performed By: #### B MP #### [facility] [address] [address] [address] Narendra Franks Calcium [Mass/Vol] 8.5 mg/dL Normal 8.5-10.1 [facility] Comment on above: Performed By: #### B MP #### [facility] [address] [address] [address] Narendra Franks Chloride [Moles/Vol] 104 mmol/L Normal 98-107 [facility] Comment on above: Performed By: #### B MP #### [facility] [address] [address] [address] Narendra Franks CO2 [Moles/Vol] 28.0 mmol/L Normal 21.0-32.0 [facility] Comment on above: Performed By: #### B MP #### [facility] [address] [address] [address] Narendra Franks Creatinine [Mass/Vol] 0.77 mg/dL Normal 0.55-1.02 [facility] Comment on above: Performed By: #### B MP #### [facility] [address] [place] [address] Dr. Narendra Franks EGFR-AF CYMRO >60 Normal >=60 [facility] Comment on above: Performed By: #### B MP #### [facility] [address] [address] [address] Narendra Franks EGFR-NON AF CYMRO >60 Normal >=60 [facility] Comment on above: Performed By: #### B MP #### [facility] [address] [address] [address] Narendra Franks Glucose [Mass/Vol] 90 mg/dL Normal 74-[address] [facility] Comment on above: Performed By: #### B MP #### [facility] [address] [address] [address] Narendra Franks Potassium [Moles/Vol] 3.8 mmol/L Normal 3.5-5.1 [facility] Comment on above: Performed By: #### B MP #### [facility] [address] [address] [address] Narendra Franks Sodium [Moles/Vol] 138 mmol/L Normal 136-[address] [facility] Comment on above: Performed By: #### B MP #### [facility] [address] [place] [address] Dr. Narendra Franks Urea nitrogen [Mass/Vol] 15.0 mg/dL Normal 7.0-18.0 [facility] Comment on above: Performed By: #### B MP #### [facility] [address] [place], [place] [address] Dr. Narendra Franks Urea nitrogen/Creatinine [Mass ratio] 19.5 mg/mg Normal [facility] Comment on above: Performed By: #### B MP #### [facility] [address] [place], [place] [address] Dr. Narendra Franks SED RATE WESTERGRENon 2021 SED RATE 25 mm/hr Critically high <=20 [facility] Comment on above: Performed By: #### S EDR #### [facility] [address] [address] [address] Narendra Franks CYNTHIA WITH REFLEX TO ENAon CYNTHIA WITH REFLEX TO ANYI Negative Normal NEGATIVE [facility] Comment on above: Performed By: #### A NA #### [facility] [address] [place] [address] C-REACTIVE PROTEINon 019 CRP [Mass/Vol] mg/L Normal [facility] Comment on above: Result Comment: REF VALUE < 1.00 Performed By: #### C RP #### [facility] [address] [place] [address] CITRULLINE ANTIBODYon 2018 CITRULLINE ANTIBODY <1 Normal [facility] Comment on above: Result [...] U/ML Performed By: #### C ITAB #### [facility] [address] [place] [address] HLA-B27 TYPINGon 04-29-2019 HLA-B27 TYPING Negative Normal [facility] Comment on above: Result Comment: This test was developed without FDA review. The test performance characteristics were defined and validated by the [facility] Department of Pathology, under the accreditation guidelines of [facility]. Performed By: #### H [id number] #### [facility] [address] [place] [address] RHEUMATOID FACTORon 04-29-20 19 RHEUMATOID FACTOR <10 Normal 0 - 15 [facility] Comment on above: Performed By: #### R F #### [facility] [address] [place] [address] SEDIMENTATION RATE, ERYTHROC YTEon 04-29-2019 SEDIMENTATION RATE, ERYTHROCYTE 2 mm/h Normal 0 - 20 [facility] Comment on above: Performed By: #### E SRWS #### [facility] [address] [place] [address] Social History Date Type Detail Facility Unknown if ever smoked [facility] Other Sex Assigned At Sex Assigned At Bir th [facility] Other Vital Signs Date Time Vital Sign Value Performing Clinician Facility 06-06-2023 09:05-0400 Body height 170.18 cm Valeria Claros Other [facility] Other 06-06-2023 09:05-0400 Body mass index (BMI) [Ratio] 29.19 kg/m2 Valeria Claros Other [facility] Other 06-06-2023 09:05-0400 Body temperature 98.5 [degF] Valeria Claros Other [facility] Other 06-06-2023 09:05-0400 Body weight 84.55 kg Valeria Claros Other [facility] Other 06-06-2023 09:05-0400 Diastolic blood pressure 96 mm[Hg] Valeria Claros Other [facility] Other 06-06-2023 09:05-0400 Respiratory rate 18 /min Valeria Claros Other [facility] Other 06-06-2023 09:05-0400 SaO2% (BldA) [Mass fraction] 98 % Valeria Claros Other [facility] Other 06-06-2023 09:05-0400 Systolic blood pressure 140 mm[Hg] Valeria Claros Other [facility] Other Evaluation note 06-06-2023 Note Date & [...] understanding and is agreeable with treatment plan [facility] Other History general Narrative - Reported Note [...] Hospitalization History migraine Hospitalization History child 2020 [facility] Other Summary Purpose Family History No Family History Records FoundNo Family History Records FoundNo Family History Records Found Advance Directives No Advanced Directives Records FoundNo Advanced Directives Records FoundNo Advanced Directives Records Found Additional Source Comments INFORMATION SOURCE (unrecogn ized section and content) DATE CREATED AUTHOR 07/19/2019 [facility] DATE CREATED AUTHOR AUTHOR'S ORGANIZ ATION 12/29/2022 [facility] DATE CREATED AUTHOR AUTHOR'S ORGANIZ ATION 03/16/2024 [facility] EPIC REASON FOR [...] BE BASED ON THE PRIMARY CLINICAL RECORDS. [facility] [employer] [facility]. provides no warranty or guarantee of the accuracy or completeness of information in this document.
[2024-03-30 11:02] LABS: Alanine Aminotransferase 25 U/L (14-59); Aspartate Amino Transferase 22 U/L (15-37); Estimated GFR (African America >60 (>=60); Estimated GFR (Non-African Ame >60 (>=60); Uric Acid 3.8 mg/dL (2.6-6.0)
[2024-03-30 11:34] LABS: INR 0.93; Partial Thromboplastin Time 25.2 sec (22.3-36.2); Prothrombin Time 9.9 sec (9.0-11.6)
[2024-03-30 11:36] LABS: Fibrinogen 425 mg/dL (200-400)
[2024-03-30 15:54] LABS: Creatinine Urine Random 110.07 mg/dL (20.00-300.00); Total Protein Urine Random 22.3 mg/dL (<=11.9)
--- NOTE | 2024-03-30 18:10 | PC.NURSE ---
All charting by Jarvis Lagunas RN agreed with.
[2024-03-30] MEDS: 0.9 % SODIUM CHLORIDE 1,000 ML 125 ML IV (21:39)
[2024-03-30] MEDS: AMPICILLIN SODIUM 2,000 MG in 0.9 % SODIUM CHLORIDE 100 ML 200 MG IV (21:41)
[2024-03-30] MEDS: OXYTOCIN/0.9 % SODIUM CHLORIDE 10 UNITS/500 ML PLAST..BAG 6 UNIT IV (21:50)
[2024-03-31] VITALS (66 sets, daily range): BP systolic 105–162; BP diastolic 55–102; PULSE 66–105; TEMP 35.9–37.2
[2024-03-31] MEDS: AMPICILLIN SODIUM 1,000 MG in 0.9 % SODIUM CHLORIDE 50 ML 100 MG IV ×3 (02:05→09:49)
[2024-03-31] MEDS: 0.9 % SODIUM CHLORIDE 1,000 ML 1000 ML IV (07:30)
[2024-03-31] MEDS: ROPIVACAINE HCL/PF 400 MG/200 ML PREMIX 6 MG EPIDURAL (08:15)
[2024-03-31] MEDS: BETAMETHASONE ACE/BETAMETHASONE SOD PHOS 30 MG/5 ML 12 MG IM (08:21)
[2024-03-31] MEDS: 0.9 % SODIUM CHLORIDE 1,000 ML 125 ML IV ×2 (08:38→09:39)
[2024-03-31] MEDS: OXYTOCIN/0.9 % SODIUM CHLORIDE 20 UNITS/1,000 ML PLAST..BAG 125 UNIT IV (10:20)
--- NOTE | 2024-03-31 10:23 | PM.OBPRCVD ---
Procedure Intrapartal events: None Induction method: per pitocin protocol Delivery augmentation: rupture of membranes and pitocin Delivery monitor: external FHT and external uterine Route of delivery: Episiotomy Description: none L&D Laceration Description: none Estimated blood loss (mL): 200 Anesthesia type: Epidural Disposition: floor Delivery date: 03/31/24 Gender: male presentation: vertex Placental delivery description: Spontaneous cord description: 3 Vessels
[2024-03-31] MEDS: IBUPROFEN 600 MG TABLET PO ×2 (13:19→20:19)
[2024-03-31] MEDS: BENZOCAINE/MENTHOL 85 GRAM SPRAY BOTTLE 1 APPLIC TOPICAL (13:20)
[2024-03-31] MEDS: ACETAMINOPHEN 325 MG TABLET 650 MG PO ×2 (13:20→20:19)
[2024-03-31] MEDS: GLYCERIN/WITCH HAZEL PADS 1 PAD TOPICAL (13:20)
[2024-03-31] MEDS: LABETALOL HCL 200 MG TABLET PO (20:20)
--- NOTE | 2024-03-31 20:34 | PC.NURSE ---
pt states, that she's has spots in her vision for 1 year. pt denies any other symptoms, bilateral homans sign negative.
[2024-04-01 00:34] VITALS: BP 140/77; PULSE 88; TEMP 36.4
[2024-04-01 04:43] VITALS: BP 131/76; PULSE 73; TEMP 35.4; TEMP 35.9
[2024-04-01 06:00] LABS: Basophils Percent Auto 0.1 % (0.2-2.0); Hematocrit 32.2 % (36.0-48.0); Hemoglobin 10.8 g/dL (12.0-16.0); Immature Granulocytes Abs Auto 0.15 10^3/uL (0.00-0.03); Immature Granulocytes Pct Auto 1.1 % (0.0-0.5); Lymphocytes Absolute Auto 1.5 10^3/uL (1.2-3.8); Lymphocytes Percent Auto 11.1 % (20.5-60.0); Mean Corpuscular HGB Conc 33.5 g/dL (29.9-35.2); Mean Corpuscular Hemoglobin 33.5 pg (26.7-34.0); Mean Platelet Volume 11.3 fL (9.5-13.5); Monocytes Absolute Auto 0.9 10^3/uL (0.3-0.8); Neutrophils Absolute Auto 10.8 10^3/uL (1.4-6.5); Neutrophils Percent Auto 80.7 % (43.0-75.0); Platelet Count 165 10^3/uL (150-450); Red Blood Count 3.22 10^6/uL (4.20-5.40); Red Cell Distribution Width 13.1 % (11.0-15.0); White Blood Count 13.4 10^3/uL (4.0-11.0)
--- NOTE | 2024-04-01 07:33 | PM.OBPN ---
OB - PN: Subj Subjective Patient comments: no complaints and pain well controlled [place] status: doing well Exam Constitutional Vital Signs, click to edit/add: Last Vital Signs Temp 96.6 F L 04/01/24 04:43 Pulse 73 04/01/24 04:43 Resp 16 04/01/24 04:49 BP 131/76 04/01/24 04:43 O2 Del Method Room Air 04/01/24 04:49 Documenting provider has reviewed patient's vital signs: yes Common normals: no apparent distress Respiratory Common normals: normal respiratory effort and clear to auscultation bilaterally Cardio Common normals: regular rate and regular rhythm GI Common normals: Normal to inspection, nondistended, normoactive bowel sounds present Extremity Common normals: no clubbing, cyanosis or edema and no calf tenderness Results Labs Labs: Short CBC 04/01/24 Range/Units 05:47 WBC 13.4 H (4.0-11.0) 10^3/uL Hgb 10.8 L (12.0-16.0) g/dL Hct 32.2 L (36.0-48.0) % Plt Count 165 (150-450) 10^3/uL OB - PN: A/P Assessment and Plan (1) Pre-eclampsia added to pre-existing hypertension: Assessment and Plan: cont labetalol, fu on thursday for bp check, labs reviewed Plan - Vaginal Delivery day: 1 Plan: routine care, discharge home and other (fu bp on thursday) Time Spent with Patient Time: Total time spent is greater than 50% in coordination of care (as documented) at patient's floor/unit and/or counseling patient: Total time spent with greater than 50% in coordination of care (as documented) at patient's floor/unit and/or counseling patient: less than 15 minutes
[2024-04-01 07:40] VITALS: TEMP 36.9
[2024-04-01 07:41] VITALS: BP 143/89; PULSE 83
[2024-04-01] MEDS: LABETALOL HCL 200 MG TABLET PO (07:48)
[2024-04-01] MEDS: ACETAMINOPHEN 325 MG TABLET 650 MG PO (07:48)
[2024-04-01] MEDS: IBUPROFEN 600 MG TABLET PO (07:48)
== END 2024-04-01 08:30 | disposition home or self-care (01) | DRG 806 ==
LOC: US 10:42 → FBC 10:42
PROVIDERS: Admitting Provider Obstetrics & Gynecology; PCP Family Medicine; Visit Provider Obstetrics & Gynecology
DX: O11.4 Pre-existing hypertension with pre-eclampsia, complicating childbirth (principal); Q61.3 Polycystic kidney, unspecified; Z37.0 Single live birth; O10.02 Pre-existing essential hypertension complicating childbirth; O99.892 Other specified diseases and conditions complicating childbirth; Z3A.36 36 weeks gestation of pregnancy; Z87.898 Personal history of other specified conditions; Z86.16 Personal history of COVID-19; O99.62 Diseases of the digestive system complicating childbirth; K21.9 Gastro-esophageal reflux disease without esophagitis
CPT/HCPCS: 36415; 59050; 59410; 76816; 76818; 80307; 82565; 82570; 84156; 84450; 84460; 84520; 84550; 85025; 85384; 85610; 85730; 86850; 86900; 86901; 96365; 96366; 96368; 96372; J0290; J0702; J2795

== ENCOUNTER 2024-05-03 09:37 | Outpatient (OUT) | payer BC, SELFPAY ==
--- OUTSIDE RECORDS SUMMARY | 2024-05-03 09:40 | XMS_ITS | CCD ---
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 Name Role Phone REQUEST, DR NONE LISTED Primary Care Unavailmahnaz ARVIZU, DR RAMONA Ramirez Admitting Unavailable NOLBERTO, DR RAMONA Ramirez Attending Unavailable NOLBERTO, DR RAMONA Ramirez Consulting Unavailable CHELSEACHCLARY ., HILDA ORTEGA Consulting UnavailYessenia Sethi Consulting Unavailable EFREN ., DR SIEGEL Admitting Unavailable EFREN ., DR SIEGEL Attending Unavailable REQUEST, NONE LISTED Primary Care Unavaila jessica SCHWARTZ ., DR SIEGEL Consulting Unavailable Valeria Claros Unavailable ROBBIN SCHWARTZ Attending Unavailable EFREN, ROBBIN Attending Unavailable SANAZ, KING Attending Unavailable EFREN, ROBBIN Attending Unavailable SANAZ, KING Attending Unavailable EFREN, ROBBIN Attending Unavailable SANAZ, KING Attending Unavailable EFREN, ROBBIN Attending Unavailable EFREN, ROBBIN Attending Unavailable ROMINA NELSON Attending Unavailable LYLY YOUSIF Referring Unavailable ADELAIDE BOJORQUEZ Attending Unavailable LYLY YOUSIF Referring Unavailable Allergies Allergy Classification Reported Allergen(s) Allergy Type Date of Onset Reaction(s) Facility (1 source) Raspberry Propensity to adverse reactions tingles, and itches [facility] Other Medications Current Medications Medication Drug Class(es) [...] to 29on 12-24-2022 . . Normal [facility] Comment on above: Performed By: #### [id number] #### [facility] [address] [address] [address] Narendra Franks Age Gdln ACOG Testing [facility] Comment on above: Performed By: #### [id number] #### [facility] [address] [place], [place] [address] Dr. Narendra Franks DIAGNOSIS: Comment [facility] Comment on above: Result Comment: NEGA TIVE FOR INTRAEPITHELIAL LESION OR MALIGNANCY. Performed By: #### [id number] #### [facility] [id number] Narendra Franks Methodology: Comment [facility] Comment on above: Result Comment: This liquid based ThinPrep(R) pap test was screened with the use of an image guided system. Performed By: #### [id number] #### [facility] [address] [place] [address] Dr. Narendra Franks Note: Comment Normal [facility] Comment on above: Result Comment: The Pap smear is a screening test designed to aid in the detection of premalignant and malignant conditions of the uterine cervix. It is not a diagnostic procedure and should not be used as the sole means of detecting cervical cancer. Both false-positive and false-negative reports do occur. . Performed By: #### [id number] #### [facility] [address] [place] [address] Dr. Narendra Franks Performed by: Comment Normal [facility] Comment on above: Result Comment: Dhruv Smith, Registered Dental Assistant (ASCP) Performed By: #### [id number] #### [facility] [address] [place] [address] Dr. Narendra Franks Reflex Criteria: Comment Normal [facility] Comment on above: Result Comment: The HPV DNA reflex criteria were not met with this specimen result therefore, no HPV testing was performed. . Performed By: #### [id number] #### [facility] [address] [place] [address] Dr. Narendra Franks Specimen adequacy: Comment Normal [facility] Comment on above: Result Comment: Sati sfactory for evaluation. Endocervical and/or squamous metaplastic cells (endocervical component) are present. Performed By: #### [id number] #### [facility] [address] [place] [address] Dr. Narendra Franks CBC AUTO DIFFon 06-26-2022 BASO # 0.0 103/ul Normal 0.0-0.1 [facility] Comment on above: Performed By: #### C BC #### [facility] [address] [place] [address] Dr. Narendra Franks Basophils/100 WBC (Bld) 0.4 % Normal 0.2-2.0 [facility] Comment on above: Performed By: #### C BC #### [facility] [address] [place] [address] Dr. Narendra Franks EO # 0.3 103/ul Normal 0.0-0.7 [facility] Comment on above: Performed By: #### C BC #### [facility] [address] [place] [address] Dr. Narendra Franks Eosinophils/100 WBC (Bld) 3.5 % Normal 0.9-7.0 [facility] Comment on above: Performed By: #### C BC #### [facility] [address] [place] [address] Dr. Narendra Franks Erythrocyte distribution width (RBC) [Ratio] 14.1 % Normal 11.0-15.0 [facility] Comment on above: Performed By: #### C BC #### [facility] [address] [place] [address] Dr. Narendra Franks Hematocrit (Bld) [Volume fraction] 38.2 % Normal 36.0-48.0 [facility] Comment on above: Performed By: #### C BC #### [facility] [address] [place] [address] Dr. Narendra Franks Hemoglobin (Bld) [Mass/Vol] 12.6 g/dL Normal 12.0-16.0 [facility] Comment on above: Performed By: #### C BC #### [facility] [address] [place] [address] Dr. Narendra Franks IG # 0.01 10e3/ul Normal 0.00-0.03 [facility] Comment on above: Performed By: #### C BC #### [facility] [address] [place] [address] Dr. Narendra Franks IG % 0.1 % Normal 0.0-0.5 [facility] Comment on above: Performed By: #### C BC #### [facility] [address] [place] [address] Dr. Narendra Franks LYMPH # 2.4 103/ul Normal 1.2-3.8 [facility] Comment on above: Performed By: #### C BC #### [facility] [address] [place] [address] Dr. Narendra Franks Lymphocytes/100 WBC (Bld) 30.4 % Normal 20.5-60.0 [facility] Comment on above: Performed By: #### C BC #### [facility] [address] [place] [address] Dr. Narendra Franks MANUAL DIFF REQ NO Normal [facility] Comment on above: Performed By: #### C BC #### [facility] [address] [place] [address] Dr. Narendra Franks MCH (RBC) [Entitic mass] 30.4 pg Normal 26.7-34.0 [facility] Comment on above: Performed By: #### C BC #### [facility] [address] [place] [address] Dr. Narendra Franks MCHC (RBC) [Mass/Vol] 33.0 g/dL Normal 29.9-35.2 [facility] Comment on above: Performed By: #### C BC #### [facility] [address] [place] [address] Dr. Narendra Franks MCV (RBC) [Entitic vol] 92.0 fL Normal 81.0-99.0 [facility] Comment on above: Performed By: #### C BC #### [facility] [address] [place] [address] Dr. Narendra Franks MONO # 0.5 103/ul Normal 0.3-0.8 [facility] Comment on above: Performed By: #### C BC #### [facility] [address] [place] [address] Dr. Narendra Franks Monocytes/100 WBC (Bld) 6.3 % Normal 1.7-12.0 [facility] Comment on above: Performed By: #### C BC #### [facility] [address] [place] [address] Dr. Narendra Franks NEUT # 4.7 103/ul Normal 1.4-6.5 [facility] Comment on above: Performed By: #### C BC #### [facility] [address] [place] [address] Dr. Narendra Franks Neutrophils/100 WBC (Bld) 59.3 % Normal 43.0-75.0 [facility] Comment on above: Performed By: #### C BC #### [facility] [address] [address] [address] Narendra Franks Platelet mean volume (Bld) [Entitic vol] 10.5 fL Normal 9.5-13.5 [facility] Comment on above: Performed By: #### C BC #### [facility] [address] [address] [address] Narendra Franks PLT 272 103/ul Normal 150-450 [facility] Comment on above: Performed By: #### C BC #### [facility] [address] [address] [address] Narendra Franks RBC 4.15 106/ul Critically low 4.20-5.[address] [facility] Comment on above: Performed By: #### C BC #### [facility] [address] [address] [address] Narendra Franks WBC 8.0 103/ul Normal 4.0-11.0 [facility] Comment on above: Performed By: #### C BC #### [facility] [address] [address] [address] Narendra Franks CRPon 06-26-2022 CRP [Mass/Vol] mg/L Normal <=1.0 [facility] Comment on above: Performed By: #### C RP #### [facility] [address] [place] [address] CSPINE WO CONon [...] YESSENIA HICKEY Date: 2022-06-26 21:58 Normal [facility] MONOon 06-26-2022 Monocytes (Bld) [#/Vol] Negative Normal NEGATIVE [facility] Comment on above: Performed By: #### M SHAILESH MORA #### [facility] [address] [place] [address] Dr. Narendra CASH HCG QUALon 06-26-2022 , QUAL Negative Normal NEGATIVE [facility] Comment on above: Performed By: #### M MORGAN, PREG #### [facility] [address] [address] [address] Narendra Franks PROF CHEM 8 (BAS METB)on Anion gap [Moles/Vol] 9.8 mmol/L Normal [facility] Comment on above: Performed By: #### B MP #### [facility] [address] [place] [address] Dr. Narendra Franks Calcium [Mass/Vol] 8.5 mg/dL Normal 8.5-10.1 [facility] Comment on above: Performed By: #### B MP #### [facility] [address] [place] [address] Dr. Narendra Franks Chloride [Moles/Vol] 104 mmol/L Normal 98-107 [facility] Comment on above: Performed By: #### B MP #### [facility] [address] [place] [address] Dr. Narendra Franks CO2 [Moles/Vol] 28.0 mmol/L Normal 21.0-32.0 [facility] Comment on above: Performed By: #### B MP #### [facility] [address] [place] [address] Dr. Narendra Franks Creatinine [Mass/Vol] 0.77 mg/dL Normal 0.55-1.02 [facility] Comment on above: Performed By: #### B MP #### [facility] [address] [place] [address] Dr. Narendra Franks EGFR-AF HONG KONGER >60 Normal >=60 [facility] Comment on above: Performed By: #### B MP #### [facility] [address] [place] [address] Dr. Narendra Franks EGFR-NON AF HONG KONGER >60 Normal >=60 [facility] Comment on above: Performed By: #### B MP #### [facility] [address] [place] [address] Dr. Narendra Franks Glucose [Mass/Vol] 90 mg/dL Normal 74-106 [facility] Comment on above: Performed By: #### B MP #### [facility] [address] [address] [address] Narendra Franks Potassium [Moles/Vol] 3.8 mmol/L Normal 3.5-5.1 [facility] Comment on above: Performed By: #### B MP #### [facility] [address] [address] [address] Narendra Franks Sodium [Moles/Vol] 138 mmol/L Normal 136-145 [facility] Comment on above: Performed By: #### B MP #### [facility] [address] [address] [address] Narendra Franks Urea nitrogen [Mass/Vol] 15.0 mg/dL Normal 7.0-18.0 [facility] Comment on above: Performed By: #### B MP #### [facility] [address] [address] [address] Narendra Franks Urea nitrogen/Creatinine [Mass ratio] 19.5 mg/mg Normal [facility] Comment on above: Performed By: #### B MP #### [facility] [address] [address] [address] Narendra Franks SED RATE [facility] 2021 SED RATE 25 mm/hr Critically high <=[address] [facility] Comment on above: Performed By: #### S EDR #### [facility] [address] [place] [address] Dr. Narendra Franks CYNTHIA WITH REFLEX TO ENAon CYNTHIA WITH REFLEX TO ANYI Negative Normal NEGATIVE [facility] Comment on above: Performed By: #### A NA #### [facility] [id number] [place] [address] C-REACTIVE PROTEINon 019 CRP [Mass/Vol] mg/L Normal [facility] Comment on above: Result Comment: REF VALUE < 1.00 Performed By: #### C RP #### [facility] [address] [place] [address] CITRULLINE ANTIBODYon 2018 CITRULLINE ANTIBODY <1 Normal [facility] Comment on above: Result Comment: [...] U/ML Performed By: #### C ITAB #### [facility] [address] [place] [address] HLA-B27 TYPINGon 04-29-2019 HLA-B27 TYPING Negative Normal [facility] Comment on above: Result Comment: This test was developed without FDA review. The test performance characteristics were defined and validated by the [facility] Department of Pathology, under the accreditation guidelines of [facility]. Performed By: #### H [id number] #### [facility] [address] [place] [address] RHEUMATOID FACTORon 04-29-20 19 RHEUMATOID FACTOR <10 Normal 0 - 15 [facility] Comment on above: Performed By: #### R F #### [facility] [address] [place] [address] SEDIMENTATION RATE, ERYTHROC YTEon 04-29-2019 SEDIMENTATION RATE, ERYTHROCYTE 2 mm/h Normal 0 - 20 [facility] Comment on above: Performed By: #### E SRWS #### [facility] [address] [place] [address] Vital Signs Date Time Vital Sign Value Performing Clinician Facility 06-06-2023 09:05-0400 Body height 170.18 cm Valeria Claros Other [facility] Other 06-06-2023 09:05-0400 Body mass index (BMI) [Ratio] 29.19 kg/m2 Valeria Claros Other [facility] Other 06-06-2023 09:05-0400 Body temperature 98.5 [degF] Valeria Claros Other [facility] Other 06-06-2023 09:05-0400 Body weight 84.55 kg Valeria Claros Other [facility] Other 06-06-2023 09:05-0400 Diastolic blood pressure 96 mm[Hg] Valeria Claros Other [facility] Other 06-06-2023 09:05-0400 Respiratory rate 18 /min Valeria Claros Other [facility] Other 06-06-2023 09:05-0400 SaO2% (BldA) [Mass fraction] 98 % Valeria Claros Other [facility] Other 06-06-2023 09:05-0400 Systolic blood pressure 140 mm[Hg] Valeria Claros Other [facility] Other Encounters Encounter Date Encounter Type Care Provider Facility Start: 04-11-2024 End: 04-11-2024 ambulatory ROBBIN EFREN Not Available Start: 04-04-2024 End: 04-04-2024 ambulatory ROBBIN EFREN Not Available Start: 03-29-2024 End: 03-29-2024 ambulatory ROBBIN EFREN Not Available Start: 03-15-2024 End: 03-15-2024 ambulatory ROBBIN EFREN Not Available Start: 03-01-2024 End: 03-01-2024 ambulatory KING SANAZ Not Available Start: 02-16-2024 End: 02-16-2024 ambulatory ROBBIN EFREN Not Available Start: 02-02-2024 End: 02-02-2024 ambulatory KING SANAZ Not Available Start: 01-13-2024 End: 01-13-2024 ambulatory ROBBIN EFERN Not Available Start: 12-16-2023 End: 12-16-2023 ambulatory [...] 06-06-2023 End: 06-06-2023 ambulatory Valeria Claros Other [facility] Other Start: 06-06-2023 Office outpatient ne w 20 minutes Valeria Claros [facility] Start: 12-17-2022 End: 12-17-[address] ROBBIN SCHWARTZ . Facility: Start: 06-26-2022 End: 06-27-2022 ambulatory NONE LISTED REQUEST Facility: Payers Date Payer Category Payer Unknown [id number] 2.16.84 [id number] 1996 Unknown [id number] 2.16.84 [id number] 1996 Unknown [id number] 2.16.84 0.1.879320.3.579.2.1259 1996 Unknown [id number] 2.16.84 0.1.757675.3.579.2.1259 1996 Unknown [id number] 2.16.84 0.1.847498.3.579.2.1259 1996 Unknown [id number] 2.16.84 0.1.254112.3.579.2.1259 1996 Unknown [id number] 2.16.84 0.1.178186.3.579.2.1259 1996 Unknown [id number] 2.16.84 0.1.308680.3.579.2.1259 1996 Unknown [id number] 2.16.84 0.1.186759.3.579.2.1259 1996 Unknown [id number] 2.16.84 0.1.744129.3.579.2.9 1996 Unknown [id number] 2.16.84 0.1.209543.3.579.2.9 1996 Unknown [id number] 2.16.84 0.1.262573.3.579.2.1258 1996 Unknown [id number] 2.16.84 0.1.177026.3.579.2.1258 1996 Unknown [id number] 2.16.840 .1.647554.3.579.2.1258 1996 Unknown [id number] 2.16.840 .1.436300.3.579.2.9 1996 Unknown [id number] 2.16.840 .1.614987.3.579.2.9 1959 Unknown [id number] Social History Date Type Detail Facility Unknown if ever smoked [facility] Other Sex Assigned At Sex Assigned At Bir th [facility] Other Evaluation note 06-06-2023 Note Date & [...] understanding and is agreeable with treatment plan [facility] Other History general Narrative - Reported Note [...] Hospitalization History migraine Hospitalization History child 2020 [facility] Other Summary Purpose Family History No Family History Records FoundNo Family History Records FoundNo Family History Records Found Advance Directives No Advanced Directives Records FoundNo Advanced Directives Records FoundNo Advanced Directives Records Found Additional Source Comments INFORMATION SOURCE (unrecogn ized section and content) DATE CREATED AUTHOR 07/19/2019 [facility] DATE CREATED AUTHOR AUTHOR'S ORGANIZ ATION [facility]/29/2022 [facility] DATE CREATED AUTHOR AUTHOR'S ORGANIZ ATION 04/11/2024 [facility] EPIC REASON FOR VISIT [...] BE BASED ON THE PRIMARY CLINICAL RECORDS. [employer] provides no warranty or guarantee of the accuracy or completeness of information in this document.
[2024-05-03 09:52] LABS: Basophils Percent Auto 0.3 % (0.2-2.0); Eosinophils Absolute Auto 0.2 10^3/uL (0.0-0.7); Eosinophils Percent Auto 3.5 % (0.9-7.0); Hematocrit 42.8 % (36.0-48.0); Hemoglobin 14.3 g/dL (12.0-16.0); Immature Granulocytes Abs Auto 0.01 10^3/uL (0.00-0.03); Immature Granulocytes Pct Auto 0.2 % (0.0-0.5); Lymphocytes Absolute Auto 1.8 10^3/uL (1.2-3.8); Lymphocytes Percent Auto 29.5 % (20.5-60.0); Mean Corpuscular HGB Conc 33.4 g/dL (29.9-35.2); Mean Corpuscular Hemoglobin 32.6 pg (26.7-34.0); Mean Corpuscular Volume 97.7 fL (81.0-99.0); Mean Platelet Volume 10.1 fL (9.5-13.5); Monocytes Absolute Auto 0.4 10^3/uL (0.3-0.8); Monocytes Percent Auto 6.2 % (1.7-12.0); Neutrophils Absolute Auto 3.6 10^3/uL (1.4-6.5); Neutrophils Percent Auto 60.3 % (43.0-75.0); Platelet Count 253 10^3/uL (150-450); Red Blood Count 4.38 10^6/uL (4.20-5.40); Red Cell Distribution Width 11.4 % (11.0-15.0)
[2024-05-03 10:13] LABS: Estimated Average Glucose 103 mg/dL; Glycohemoglobin A1C 5.2 % (4.5-6.2)
[2024-05-03 11:19] LABS: Alanine Aminotransferase 26 U/L (14-59); Albumin Level 3.3 g/dL (3.4-5.0); Alkaline Phosphatase 124 U/L (46-116); Anion Gap 12.1; Aspartate Amino Transferase 20 U/L (15-37); BUN Creatinine Ratio 17.9; Bilirubin Total 0.4 mg/dL (0.2-1.0); Calcium 8.8 mg/dL (8.5-10.1); Carbon Dioxide 26.9 mmol/L (21.0-32.0); Chloride 106 mmol/L (98-107); Estimated GFR (African America >60 (>=60); Estimated GFR (Non-African Ame >60 (>=60); Globulin 3.4 g/dL; Glucose 92 mg/dL (74-106); Sodium 141 mmol/L (136-145); Thyroid Stimulating Hormone 1.878 uIU/mL (0.358-3.740); Total Protein 6.7 g/dL (6.4-8.2)
== END 2024-05-03 09:38 | disposition home or self-care (01) ==
LOC: LAB 09:38
PROVIDERS: PCP Family Medicine; Visit Provider Family Medicine
DX: G43.909 Migraine, unspecified, not intractable, without status migrainosus (principal); R73.09 Other abnormal glucose
CPT/HCPCS: 36415; 80053; 83036; 84436; 84443; 84481; 85025

== ENCOUNTER 2024-05-19 14:17 | Outpatient (OUT) | payer BC, SELFPAY ==
--- NOTE | 2024-05-19 14:21 | MR_ITS ---
The [address] [address] Patient Name: RACHEAL CARVALHO MRN: [id number] date: 1995 Sex: F Assigned Patient Location: MRI Current Patient Location: MRI Accession/Order Number: [id number] Exam Date: 05/19/2024 14:40 Report Date: 05/19/2024 16:43 At the request of: LYLY YOUSIF Procedure: MR head/brain wo/w con EXAM: MR head/brain wo/w con HISTORY: Migraine COMPARISON: CT brain 06/26/2022. TECHNIQUE: Multisequence MRI brain was performed with and without intravenous contrast. FINDINGS: There is no restricted diffusion to suggest acute infarct. There is no midline shift, mass effect, or abnormal extraaxial fluid collections. There are no abnormal parenchymal or leptomeningeal enhancement. The cortical sulci and ventricular system are within normal limits. The major intracranial flow voids are visualized. The cerebellar tonsils are normal in position. The orbits demonstrate no suspicious enhancement or any focal lesions. The paranasal sinuses show no air-fluid level. There is marked leftward deviation of the nasal septum. There is minimal mucoperiosteal thickening of left maxillary sinus and bilateral anterior ethmoid air cells. The mastoid air cells are clear. The calvarium and extracranial soft tissues are unremarkable. MR/MR head/brain wo/w con IMPRESSION: No acute intracranial abnormality or abnormal intracranial enhancement. Marked leftward deviation of nasal septum. Minimal paranasal sinus mucosal disease. Electronically authenticated by: JONN SERRANO Date: 05/19/2024 16:43
--- OUTSIDE RECORDS SUMMARY | 2024-05-19 14:21 | XMS_ITS | CCD ---
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 Name Role Phone REQUEST, DR NONE LISTED Primary Care Unavaila jessica ARVIZU, DR RAMONA Ramirez Admitting Unavailable NOLBERTO, DR RAMONA Ramirez Attending Unavailable NOLBERTO, DR RAMONA Ramirez Consulting Unavailable GRECHCLARY ., HILDA ORTEGA Consulting UnavailYessenia Sethi Consulting Unavailable EFREN ., DR SIEGEL Admitting Unavailable EFREN ., DR SIEGEL Attending Unavailable REQUEST, NONE LISTED Primary Care Unavaila jessica SCHWARTZ ., DR SIEGEL Consulting Unavailable Valeria Claros Unavailable ROBBIN SCHWARTZ Attending Unavailable EFREN, ROBBIN Attending Unavailable SANAZ, KING Attending Unavailable EFREN, ROBBIN Attending Unavailable SANAZ, KING Attending Unavailable EFREN, ROBIBN Attending Unavailable SANAZ, KING Attending Unavailable EFREN, ROBBIN Attending Unavailable EFREN, ROBBIN Attending Unavailable SANAZ, KING Attending Unavailable ROMINA NELSON Attending Unavailable LYLY YOUSIF Referring Unavailable ADELAIDE BOJORQUEZ Attending Unavailable LYLY YOUSIF Referring Unavailable Allergies Allergy Classification Reported Allergen(s) Allergy Type Date of Onset Reaction(s) Facility (1 source) Raspberry Propensity to adverse reactions tingles, and itches [facility] Other Medications Current Medications Medication Drug Class(es) [...] 2: 21 to 29on 12-24-2022 . . [facility] Comment on above: Performed By: #### [id number] #### [facility] [address] [address] [address] Narendra Franks Age Gdln ACOG Testing [facility] Comment on above: Performed By: #### [id number] #### [facility] [address] [address] [address] Narendra Franks DIAGNOSIS: Comment [facility] Comment on above: Result Comment: NEGA TIVE FOR INTRAEPITHELIAL LESION OR MALIGNANCY. Performed By: #### [id number] #### [facility] [address] [address] [address] Narendra Franks Methodology: Comment [facility] Comment on above: Result Comment: This liquid based ThinPrep(R) pap test was screened with the use of an image guided system. Performed By: #### [id number] #### [facility] [address] [place] [address] Dr. Narendra Franks Note: Comment Normal [facility] Comment on above: Result Comment: The Pap smear is a screening test designed to aid in the detection of premalignant and malignant conditions of the uterine cervix. It is not a diagnostic procedure and should not be used as the sole means of detecting cervical cancer. Both false-positive and false-negative reports do occur. . Performed By: #### [id number] #### [facility] [address] [place] [address] Dr. Narendra Franks Performed by: Comment Normal [facility] Comment on above: Result Comment: Dhruv Smith, Care Attendant (ASCP) Performed By: #### [id number] #### [facility] [address] [place] [address] Dr. Narendra Franks Reflex Criteria: Comment Normal [facility] Comment on above: Result Comment: The HPV DNA reflex criteria were not met with this specimen result therefore, no HPV testing was performed. . Performed By: #### [id number] #### [facility] [address] [place] [address] Dr. Narendra Franks Specimen adequacy: Comment Normal [facility] Comment on above: Result Comment: Sati sfactory for evaluation. Endocervical and/or squamous metaplastic cells (endocervical component) are present. Performed By: #### [id number] #### [facility] [address] [place] [address] Dr. Narendra Franks CBC AUTO DIFFon 06-26-2022 BASO # 0.0 103/ul Normal 0.0-0.1 [facility] Comment on above: Performed By: #### C BC #### [facility] [address] [place] [address] Dr. Narendra Franks Basophils/100 WBC (Bld) 0.4 % Normal 0.2-2.0 [facility] Comment on above: Performed By: #### C BC #### [facility] [address] [place] [address] Dr. Narendra Franks EO # 0.3 103/ul Normal 0.0-0.7 [facility] Comment on above: Performed By: #### C BC #### [facility] [address] [place] [address] Dr. Narendra Franks Eosinophils/100 WBC (Bld) 3.5 % Normal 0.9-7.0 [facility] Comment on above: Performed By: #### C BC #### [facility] [address] [place] [address] Dr. Narendra Farnks Erythrocyte distribution width (RBC) [Ratio] 14.1 % Normal 11.0-15.0 [facility] Comment on above: Performed By: #### C BC #### [facility] [address] [place] [address] Dr. Narendra Franks Hematocrit (Bld) [Volume fraction] 38.2 % Normal 36.0-48.0 [facility] Comment on above: Performed By: #### C BC #### [facility] [address] [place] [address] Dr. Narendra Franks Hemoglobin (Bld) [Mass/Vol] 12.6 g/dL Normal 12.0-16.0 [facility] Comment on above: Performed By: #### C BC #### [facility] [address] [place] [address] Dr. Narendra Franks IG # 0.01 10e3/ul Normal 0.00-0.03 [facility] Comment on above: Performed By: #### C BC #### [facility] [address] [place] [address] Dr. Narendra Franks IG % 0.1 % Normal 0.0-0.5 [facility] Comment on above: Performed By: #### C BC #### [facility] [address] [place] [address] Dr. Narendra Franks LYMPH # 2.4 103/ul Normal 1.2-3.8 [facility] Comment on above: Performed By: #### C BC #### [facility] [address] [place] [address] Dr. Narendra Franks Lymphocytes/100 WBC (Bld) 30.4 % Normal 20.5-60.0 [facility] Comment on above: Performed By: #### C BC #### [facility] [address] [place] [address] Dr. Narendra Franks MANUAL DIFF REQ NO Normal [facility] Comment on above: Performed By: #### C BC #### [facility] [address] [place] [address] Dr. Narendra Franks MCH (RBC) [Entitic mass] 30.4 pg Normal 26.7-34.0 [facility] Comment on above: Performed By: #### C BC #### [facility] [address] [place] [address] Dr. Narendra Franks MCHC (RBC) [Mass/Vol] 33.0 g/dL Normal 29.9-35.2 [facility] Comment on above: Performed By: #### C BC #### [facility] [address] [place] [address] Dr. Narendra Franks MCV (RBC) [Entitic vol] 92.0 fL Normal 81.0-99.0 [facility] Comment on above: Performed By: #### C BC #### [facility] [address] [place] [address] Dr. Narendra Franks MONO # 0.5 103/ul Normal 0.3-0.8 [facility] Comment on above: Performed By: #### C BC #### [facility] [address] [place] [address] Dr. Narendra Franks Monocytes/100 WBC (Bld) 6.3 % Normal 1.7-12.0 [facility] Comment on above: Performed By: #### C BC #### [facility] [address] [place] [address] Dr. Narendra Franks NEUT # 4.7 103/ul Normal 1.4-6.5 [facility] Comment on above: Performed By: #### C BC #### [facility] [address] [place] [address] Dr. Narendra Franks Neutrophils/100 WBC (Bld) 59.3 % Normal 43.0-75.0 [facility] Comment on above: Performed By: #### C BC #### [facility] [address] [place] [address] Dr. Narendra Franks Platelet mean volume (Bld) [Entitic vol] 10.5 fL Normal 9.5-13.5 [facility] Comment on above: Performed By: #### C BC #### [facility] [address] [address] [address] Narendra Franks PLT 272 103/ul Normal 150-450 [facility] Comment on above: Performed By: #### C BC #### [facility] [address] [address] [address] Narendra Franks RBC 4.15 106/ul Critically low 4.20-5.40 [facility] Comment on above: Performed By: #### C BC #### [facility] [address] [place] [address] Dr. Narendra Franks WBC 8.0 103/ul Normal 4.0-11.0 [facility] Comment on above: Performed By: #### C BC #### [facility] [address] [place] [address] Dr. Narendra Franks CRPon 06-26-2022 CRP [Mass/Vol] mg/L Normal <=1.0 [facility] Comment on above: Performed By: #### C RP #### [facility] [address] [place] [address] CSPINE WO CONon [...] YESSENIA HICKEY Date: 2022-06-26 21:58 Normal [facility] MONOon 06-26-2022 Monocytes (Bld) [#/Vol] Negative Normal NEGATIVE [facility] Comment on above: Performed By: #### M MORGAN PREG #### [facility] [address] [place] [address] Dr. Narendra Franks PREG HCG QUALon 06-26-2022 , QUAL Negative Normal NEGATIVE [facility] Comment on above: Performed By: #### M MORGAN, PREG #### [facility] [address] [address] [address] Narendra Franks PROF CHEM 8 (BAS METB)on Anion gap [Moles/Vol] 9.8 mmol/L Normal [facility] Comment on above: Performed By: #### B MP #### [facility] [address] [address] [address] Narendra Franks Calcium [Mass/Vol] 8.5 mg/dL Normal 8.5-10.1 [facility] Comment on above: Performed By: #### B MP #### [facility] [address] [address] [address] Narendra Franks Chloride [Moles/Vol] 104 mmol/L Normal 98-107 [facility] Comment on above: Performed By: #### B MP #### [facility] [address] [address] [address] Narendra Franks CO2 [Moles/Vol] 28.0 mmol/L Normal 21.0-32.0 [facility] Comment on above: Performed By: #### B MP #### [facility] [address] [address] [address] Narendra Franks Creatinine [Mass/Vol] 0.77 mg/dL Normal 0.55-1.02 [facility] Comment on above: Performed By: #### B MP #### [facility] [address] [address] [address] Narendra Franks EGFR-AF GAMBIAN >60 Normal >=60 [facility] Comment on above: Performed By: #### B MP #### [facility] [address] [address] [address] Narendra Franks EGFR-NON AF GAMBIAN >60 Normal >=60 [facility] Comment on above: Performed By: #### B MP #### [facility] [address] [address] [address] Narendra Franks Glucose [Mass/Vol] 90 mg/dL Normal 74-106 [facility] Comment on above: Performed By: #### B MP #### [facility] [address] [address] [address] Narendra Franks Potassium [Moles/Vol] 3.8 mmol/L Normal 3.5-5.1 [facility] Comment on above: Performed By: #### B MP #### [facility] [address] [address] [address] Narendra Franks Sodium [Moles/Vol] 138 mmol/L Normal 136-145 [facility] Comment on above: Performed By: #### B MP #### [facility] [address] [address] [address] Narendra Franks Urea nitrogen [Mass/Vol] 15.0 mg/dL Normal 7.0-18.0 [facility] Comment on above: Performed By: #### B MP #### [facility] [address] [address] [address] Narendra Franks Urea nitrogen/Creatinine [Mass ratio] 19.5 mg/mg Normal [facility] Comment on above: Performed By: #### B MP #### [facility] [id number] Narendra Franks SED RATE [facility] 2021 SED RATE 25 mm/hr Critically high <=20 [facility] Comment on above: Performed By: #### S EDR #### [facility] [address] [address] [address] Narendra Franks CYNTHIA WITH REFLEX TO ENAon CYNTHIA WITH REFLEX TO ANYI Negative Normal NEGATIVE [facility] Comment on above: Performed By: #### A NA #### [facility] [address] [place] [address] C-REACTIVE PROTEINon 019 CRP [Mass/Vol] mg/L Normal [facility] Comment on above: Result Comment: REF VALUE < 1.00 Performed By: #### C RP #### [facility] [address] [place] [address] CITRULLINE ANTIBODYon 2018 CITRULLINE ANTIBODY <1 Normal [facility] Comment on above: Result Comment: THE [...] U/ML Performed By: #### C ITAB #### [facility] [address] [place] [address] HLA-B27 TYPINGon 04-29-2019 HLA-B27 TYPING Negative Normal [facility] Comment on above: Result Comment: This test was developed without FDA review. The test performance characteristics were defined and validated by the [facility] Department of Pathology, under the accreditation guidelines of [facility]. Performed By: #### H [id number] #### [facility] [address] [place] [address] RHEUMATOID FACTORon 04-29-20 19 RHEUMATOID FACTOR <10 Normal 0 - 15 [facility] Comment on above: Performed By: #### R F #### [facility] [address] [place] [address] SEDIMENTATION RATE, ERYTHROC YTEon 04-29-2019 SEDIMENTATION RATE, ERYTHROCYTE 2 mm/h Normal 0 - 20 [facility] Comment on above: Performed By: #### E SRWS #### [facility] [address] [place] [address] Vital Signs Date Time Vital Sign Value Performing Clinician Facility 06-06-2023 09:05-0400 Body height 170.18 cm Valeria Claros Other [facility] Other 06-06-2023 09:05-0400 Body mass index (BMI) [Ratio] 29.19 kg/m2 Valeria Claros Other [facility] Other 06-06-2023 09:05-0400 Body temperature 98.5 [degF] Valeria Claros Other [facility] Other 06-06-2023 09:05-0400 Body weight 84.55 kg Valeria Claros Other [facility] Other 06-06-2023 09:05-0400 Diastolic blood pressure 96 mm[Hg] Valeria Claros Other [facility] Other 06-06-2023 09:05-0400 Respiratory rate 18 /min Valeria Claros Other [facility] Other 06-06-2023 09:05-0400 SaO2% (BldA) [Mass fraction] 98 % Valeria Claros Other [facility] Other 06-06-2023 09:05-0400 Systolic blood pressure 140 mm[Hg] Valeria Claros Other [facility] Other Encounters Encounter Date Encounter Type Care Provider Facility Start: 05-17-2024 End: 05-17-2024 ambulatory KING SANAZ Not Available Start: 04-11-2024 End: 04-11-2024 ambulatory ROBBIN EFREN Not Available Start: 04-04-2024 End: 04-04-2024 ambulatory ROBBIN EFREN Not Available Start: 03-29-2024 End: 03-29-2024 ambulatory ROBBIN EFRNE Not Available Start: 03-15-2024 End: 03-15-2024 ambulatory [...] 06-06-2023 End: 06-06-2023 ambulatory Valeria Claros Other [facility] Other Start: 06-06-2023 Office outpatient ne w 20 minutes Valeria Claros [facility] Start: 12-17-2022 End: 12-17-[address] ROBBIN SCHWARTZ . Facility: Start: 06-26-2022 End: 06-27-2022 ambulatory NONE LISTED REQUEST Facility: Payers Date Payer Category Payer Unknown [id number] 2.16.84 [id number] 1996 Unknown [id number] 2.16.84 [id number] 1996 Unknown [id number] 2.16.84 0.1.209336.3.579.2.1259 1996 Unknown [id number] 2.16.84 0.1.308918.3.579.2.1259 1996 Unknown [id number] 2.16.84 0.1.838046.3.579.2.1259 1996 Unknown [id number] 2.16.84 0.1.376715.3.579.2.1259 1996 Unknown [id number] 2.16.84 0.1.452262.3.579.2.1259 1996 Unknown [id number] 2.16.84 0.1.800587.3.579.2.1259 1996 Unknown [id number] 2.16.84 0.1.641420.3.579.2.1258 1996 Unknown [id number] 2.16.84 0.1.968793.3.579.2.1258 1996 Unknown [id number] 2.16.84 0.1.602504.3.579.2.1258 1996 Unknown [id number] 2.16.84 0.1.661895.3.579.2.1258 1996 Unknown [id number] 2.16.84 0.1.156263.3.579.2.1258 1996 Unknown [id number] 2.16.84 0.1.787840.3.579.2.1258 1996 Unknown [id number] 2.16.840 .1.564535.3.579.2.1258 1996 Unknown [id number] 2.16.840 .1.298116.3.579.2.1258 1996 Unknown [id number] 2.16.840 .1.841432.3.579.2.9 1959 Unknown [id number] Social History Date Type Detail Facility Unknown if ever smoked [facility] Other Sex Assigned At Sex Assigned At Bir th [facility] Other Evaluation note 06-06-2023 Note Date & [...] understanding and is agreeable with treatment plan [facility] Other History general Narrative - Reported Note [...] Hospitalization History migraine Hospitalization History child 2020 [facility] Other Summary Purpose Family History No Family History Records FoundNo Family History Records FoundNo Family History Records Found Advance Directives No Advanced Directives Records FoundNo Advanced Directives Records FoundNo Advanced Directives Records Found Additional Source Comments INFORMATION SOURCE (unrecogn ized section and content) DATE CREATED AUTHOR 07/19/2019 [facility] DATE CREATED AUTHOR AUTHOR'S ORGANIZ ATION [facility]/29/2022 [facility] DATE CREATED AUTHOR AUTHOR'S ORGANIZ ATION 05/18/2024 [facility] EPIC REASON FOR [...] BE BASED ON THE PRIMARY CLINICAL RECORDS. [employer] provides no warranty or guarantee of the accuracy or completeness of information in this document.
== END 2024-05-19 14:18 | disposition home or self-care (01) ==
LOC: MRI 14:17
PROVIDERS: PCP Family Medicine; Visit Provider Family Medicine
DX: G43.909 Migraine, unspecified, not intractable, without status migrainosus (principal)
CPT/HCPCS: 70553; A9575

== ENCOUNTER 2024-07-05 18:59 | Outpatient (REF) | payer BC, SELFPAY ==
--- OUTSIDE RECORDS SUMMARY | 2024-07-05 19:02 | XMS_ITS | CCD ---
Author Organization [facility] Care Team Providers Care Teacher Aide Name Role Phone REQUEST, DR NONE LISTED [...] Propensity to adverse reactions tingles, and itches [facility] Other Medications Current Medications Medication Drug Class(es) [...] 2: 21 to 30on 12-24-2022 . . [facility] Comment on above: Performed By: #### [id number] #### [facility] [address] [address] [address] Narendra Franks Age Gdln ACOG Testing [facility] Comment on above: Performed By: #### [id number] #### [facility] [address] [address] [address] Narendra Franks DIAGNOSIS: Comment [facility] Comment on above: Result Comment: NEGA TIVE FOR INTRAEPITHELIAL LESION OR MALIGNANCY. Performed By: #### [id number] #### [facility] [address] [address] [address] Narendra Franks Methodology: Comment [facility] Comment on above: Result Comment: This liquid based ThinPrep(R) pap test was screened with the use of an image guided system. Performed By: #### [id number] #### [facility] [address] [place] [address] Dr. Narendra Franks Note: Comment Normal [facility] Comment on above: Result Comment: The Pap smear is a screening test designed to aid in the detection of premalignant and malignant conditions of the uterine cervix. It is not a diagnostic procedure and should not be used as the sole means of detecting cervical cancer. Both false-positive and false-negative reports do occur. . Performed By: #### [id number] #### [facility] [address] [place] [address] Dr. Narendra Franks Performed by: Comment Normal [facility] Comment on above: Result Comment: Dhruv Smith, Tower Erector Helper (ASCP) Performed By: #### [id number] #### [facility] [address] [place] [address] Dr. Narendra Franks Reflex Criteria: Comment Normal [facility] Comment on above: Result Comment: The HPV DNA reflex criteria were not met with this specimen result therefore, no HPV testing was performed. . Performed By: #### [id number] #### [facility] [address] [place] [address] Dr. Narendra Franks Specimen adequacy: Comment Normal [facility] Comment on above: Result Comment: Sati sfactory for evaluation. Endocervical and/or squamous metaplastic cells (endocervical component) are present. Performed By: #### [id number] #### [facility] [address] [place] [address] Dr. Narendra Franks CBC AUTO DIFFon 06-26-2022 BASO # 0.0 103/ul Normal 0.0-0.1 [facility] Comment on above: Performed By: #### C BC #### [facility] [address] [place] [address] Dr. Narendra Franks Basophils/100 WBC (Bld) 0.4 % Normal 0.2-2.0 [facility] Comment on above: Performed By: #### C BC #### [facility] [address] [place] [address] Dr. Narendra Franks EO # 0.3 103/ul Normal 0.0-0.7 [facility] Comment on above: Performed By: #### C BC #### [facility] [address] [place] [address] Dr. Narendra Franks Eosinophils/100 WBC (Bld) 3.5 % Normal 0.9-7.0 [facility] Comment on above: Performed By: #### C BC #### [facility] [address] [place] [address] Dr. Narendra Franks Erythrocyte distribution width (RBC) [Ratio] 14.1 % Normal 11.0-15.0 [facility] Comment on above: Performed By: #### C BC #### [facility] [address] [place] [address] Dr. Narendra Franks Hematocrit (Bld) [Volume fraction] 38.2 % Normal 36.0-48.0 [facility] Comment on above: Performed By: #### C BC #### [facility] [address] [place] [address] Dr. Narendra Franks Hemoglobin (Bld) [Mass/Vol] 12.6 g/dL Normal 12.0-16.0 [facility] Comment on above: Performed By: #### C BC #### [facility] [address] [place] [address] Dr. Narendra Franks IG # 0.01 10e3/ul Normal 0.00-0.03 [facility] Comment on above: Performed By: #### C BC #### [facility] [address] [place] [address] Dr. Narendra Franks IG % 0.1 % Normal 0.0-0.5 [facility] Comment on above: Performed By: #### C BC #### [facility] [address] [place] [address] Dr. Narendra Franks LYMPH # 2.4 103/ul Normal 1.2-3.8 [facility] Comment on above: Performed By: #### C BC #### [facility] [address] [place] [address] Dr. Narendra Franks Lymphocytes/100 WBC (Bld) 30.4 % Normal 20.5-60.0 [facility] Comment on above: Performed By: #### C BC #### [facility] [address] [place] [address] Dr. Narendra Franks MANUAL DIFF REQ NO Normal [facility] Comment on above: Performed By: #### C BC #### [facility] [address] [place] [address] Dr. Narendra Franks MCH (RBC) [Entitic mass] 30.4 pg Normal 26.7-34.0 [facility] Comment on above: Performed By: #### C BC #### [facility] [address] [place] [address] Dr. Narendra Franks MCHC (RBC) [Mass/Vol] 33.0 g/dL Normal 29.9-35.2 [facility] Comment on above: Performed By: #### C BC #### [facility] [address] [place] [address] Dr. Narendra Franks MCV (RBC) [Entitic vol] 92.0 fL Normal 81.0-99.0 [facility] Comment on above: Performed By: #### C BC #### [facility] [address] [place] [address] Dr. Narendra Franks MONO # 0.5 103/ul Normal 0.3-0.8 [facility] Comment on above: Performed By: #### C BC #### [facility] [address] [place] [address] Dr. Narendra Franks Monocytes/100 WBC (Bld) 6.3 % Normal 1.7-12.0 [facility] Comment on above: Performed By: #### C BC #### [facility] [address] [place] [address] Dr. Narendra Franks NEUT # 4.7 103/ul Normal 1.4-6.5 [facility] Comment on above: Performed By: #### C BC #### [facility] [address] [place] [address] Dr. Narendra Franks Neutrophils/100 WBC (Bld) 59.3 % Normal 43.0-75.0 [facility] Comment on above: Performed By: #### C BC #### [facility] [address] [place] [address] Dr. Narendra Franks Platelet mean volume (Bld) [Entitic vol] 10.5 fL Normal 9.5-13.5 [facility] Comment on above: Performed By: #### C BC #### [facility] [address] [address] [address] Narendra Franks PLT 272 103/ul Normal 150-450 [facility] Comment on above: Performed By: #### C BC #### [facility] [address] [address] [address] Narendra Franks RBC 4.15 106/ul Critically low 4.20-5.40 [facility] Comment on above: Performed By: #### C BC #### [facility] [address] [place] [address] Dr. Narendra Franks WBC 8.0 103/ul Normal 4.0-11.0 [facility] Comment on above: Performed By: #### C BC #### [facility] [address] [place] [address] Dr. Narendra Franks CRPon 06-26-2022 CRP [Mass/Vol] mg/L Normal <=1.0 [facility] Comment on above: Performed By: #### C RP #### [facility] [address] [place] [address] CSPINE WO CONon [...] YESSENIA HICKEY Date: 2022-06-26 21:58 Normal [facility] MONOon 06-26-2022 Monocytes (Bld) [#/Vol] Negative Normal NEGATIVE [facility] Comment on above: Performed By: #### M MORGAN PREG #### [facility] [address] [place] [address] Dr. Narendra Franks PREG HCG QUALon 06-26-2022 , QUAL Negative Normal NEGATIVE [facility] Comment on above: Performed By: #### M MORGAN, PREG #### [facility] [address] [address] [address] Narendra Franks PROF CHEM 8 (BAS METB)on Anion gap [Moles/Vol] 9.8 mmol/L Normal [facility] Comment on above: Performed By: #### B MP #### [facility] [address] [address] [address] Narendra Franks Calcium [Mass/Vol] 8.5 mg/dL Normal 8.5-10.1 [facility] Comment on above: Performed By: #### B MP #### [facility] [address] [address] [address] Narendra Franks Chloride [Moles/Vol] 104 mmol/L Normal 98-107 [facility] Comment on above: Performed By: #### B MP #### [facility] [address] [address] [address] Narendra Franks CO2 [Moles/Vol] 28.0 mmol/L Normal 21.0-32.0 [facility] Comment on above: Performed By: #### B MP #### [facility] [address] [address] [address] Narendra Franks Creatinine [Mass/Vol] 0.77 mg/dL Normal 0.55-1.02 [facility] Comment on above: Performed By: #### B MP #### [facility] [address] [address] [address] Narendra Franks EGFR-AF [place] >60 Normal >=60 [facility] Comment on above: Performed By: #### B MP #### [facility] [address] [address] [address] Narendra Franks EGFR-NON AF [place] >60 Normal >=60 [facility] Comment on above: Performed By: #### B MP #### [facility] [address] [address] [address] Narendra Franks Glucose [Mass/Vol] 90 mg/dL Normal 74-106 [facility] Comment on above: Performed By: #### B MP #### [facility] [address] [address] [address] Narendra Franks Potassium [Moles/Vol] 3.8 mmol/L Normal 3.5-5.1 [facility] Comment on above: Performed By: #### B MP #### [facility] [address] [address] [address] Narendra Franks Sodium [Moles/Vol] 138 mmol/L Normal 136-145 [facility] Comment on above: Performed By: #### B MP #### [facility] [address] [address] [address] Narendra Franks Urea nitrogen [Mass/Vol] 15.0 mg/dL Normal 7.0-18.0 [facility] Comment on above: Performed By: #### B MP #### [facility] [address] [address] [address] Narendra Franks Urea nitrogen/Creatinine [Mass ratio] 19.5 mg/mg Normal [facility] Comment on above: Performed By: #### B MP #### [facility] [id number] Narendra Franks SED RATE [facility] 2021 SED RATE 25 mm/hr Critically high <=20 [facility] Comment on above: Performed By: #### S EDR #### [facility] [address] [address] [address] Narendra Franks CYNTHIA WITH REFLEX TO ENAon CYNTHIA WITH REFLEX TO ANYI Negative Normal NEGATIVE [facility] Comment on above: Performed By: #### A NA #### [facility] [id number] [place] [address] C-REACTIVE PROTEINon 019 CRP [Mass/Vol] mg/L Normal [facility] [place] Comment on above: Result Comment: REF VALUE < 1.00 Performed By: #### C RP #### [facility] [address] [place] [address] CITRULLINE ANTIBODYon 2018 CITRULLINE ANTIBODY <1 Normal [facility] Comment on above: Result Comment: THE TEST [...] U/ML Performed By: #### C ITAB #### [facility] [address] [place] [address] HLA-B27 TYPINGon 04-29-2019 HLA-B27 TYPING Negative Normal [facility] [place] Comment on above: Result Comment: This test was developed without FDA review. The test performance characteristics were defined and validated by the [facility] Department of Pathology, under the accreditation guidelines of [facility]. Performed By: #### H LB27 #### [facility] [address] [place] [address] RHEUMATOID FACTORon 04-29-20 19 RHEUMATOID FACTOR <10 Normal 0 - 15 [facility] Comment on above: Performed By: #### R F #### [facility] [address] [place] [address] SEDIMENTATION RATE, ERYTHROC YTEon 04-29-2019 SEDIMENTATION RATE, ERYTHROCYTE 2 mm/h Normal 0 - 20 [facility] Comment on above: Performed By: #### E SRWS #### [facility] [address] [place] [address] Vital Signs Date Time Vital Sign Value Performing Clinician Facility 06-06-2023 09:05-0400 Body height 170.18 cm Valeria Claros Other [facility] Other 06-06-2023 09:05-0400 Body mass index (BMI) [Ratio] 29.19 kg/m2 Valeria Claros Other [facility] Other 06-06-2023 09:05-0400 Body temperature 98.5 [degF] Valeria Claros Other [facility] Other 06-06-2023 09:05-0400 Body weight 84.55 kg Valeria Claros Other [facility] Other 06-06-2023 09:05-0400 Diastolic blood pressure 96 mm[Hg] Valeria Claros Other [facility] Other 06-06-2023 09:05-0400 Respiratory rate 18 /min Valeria Claros Other [facility] Other 06-06-2023 09:05-0400 SaO2% (BldA) [Mass fraction] 98 % Valeria Claros Other [facility] Other 06-06-2023 09:05-0400 Systolic blood pressure 140 mm[Hg] Valeria Claros Other [facility] Other Encounters Encounter Date Encounter Type Care [...] 06-06-2023 End: 06-06-2023 ambulatory Valeria Claros Other [facility] Other Start: 06-06-2023 Office outpatient ne w 20 minutes Valeria Claros [facility] Start: 12-17-2022 End: 12-17-[address] ROBBIN SCHWARTZ . Facility: Start: 06-26-2022 End: 06-27-2022 ambulatory NONE LISTED REQUEST Facility: Payers Date Payer Category Payer Unknown [id number] 2.16.84 [id number] 1996 Unknown [id number] 2.16.84 [id number] 1996 Unknown [id number] 2.16.84 0.1.954421.3.579.2.1259 1996 Unknown [id number] 2.16.84 0.1.057127.3.579.2.1259 1996 Unknown [id number] 2.16.84 0.1.686690.3.579.2.1259 1996 Unknown [id number] 2.16.84 0.1.233390.3.579.2.1259 1996 Unknown [id number] 2.16.84 0.1.651826.3.579.2.1259 1996 Unknown [id number] 2.16.84 0.1.127116.3.579.2.1259 1996 Unknown [id number] 2.16.84 0.1.591820.3.579.2.1258 1996 Unknown [id number] 2.16.84 0.1.763775.3.579.2.1258 1996 Unknown [id number] 2.16.84 0.1.588442.3.579.2.1258 1996 Unknown [id number] 2.16.84 0.1.295855.3.579.2.1258 1996 Unknown [id number] 2.16.84 0.1.235731.3.579.2.1258 1996 Unknown [id number] 2.16.84 0.1.416035.3.579.2.1258 1996 Unknown [id number] 2.16.840 .1.512587.3.579.2.1258 1996 Unknown [id number] 2.16.840 .1.979225.3.579.2.1258 1996 Unknown [id number] 2.16.840 .1.386044.3.579.2.9 1959 Unknown [id number] Social History Date Type Detail Facility Unknown if ever smoked [facility] Other Sex Assigned At Sex Assigned At Bir th [facility] Other Evaluation note 06-06-2023 Note Date & [...] understanding and is agreeable with treatment plan [facility] Other History general Narrative - Reported Note [...] Hospitalization History migraine Hospitalization History child 2020 [facility] Other Summary Purpose Family History No Family History Records FoundNo Family History Records FoundNo Family History Records Found Advance Directives No Advanced Directives Records FoundNo Advanced Directives Records FoundNo Advanced Directives Records Found Additional Source Comments INFORMATION SOURCE (unrecogn ized section and content) DATE CREATED AUTHOR 07/19/2019 [facility] DATE CREATED AUTHOR AUTHOR'S ORGANIZ ATION 12/29/2022 [facility] DATE CREATED AUTHOR AUTHOR'S ORGANIZ ATION 05/18/2024 [facility] EPIC REASON FOR [...] BE BASED ON THE PRIMARY CLINICAL RECORDS. [employer] provides no warranty or guarantee of the accuracy or completeness of information in this document.
== END 2024-07-05 19:00 | disposition home or self-care (01) ==
LOC: LAB 18:59
PROVIDERS: PCP Family Medicine; Visit Provider Physician Assistant
DX: Z01.419 Encounter for gynecological examination (general) (routine) without abnormal findings (principal)
CPT/HCPCS: 88175

== ENCOUNTER 2024-10-24 10:54 | Outpatient (OUT) | payer BC, SELFPAY ==
--- NOTE | 2024-10-24 | XR_ITS ---
The [address] [address] Patient Name: RACHEAL CARVALHO MRN: [id number] date: 1995 Sex: F Assigned Patient Location: Current Patient Location: Accession/Order Number: [id number] Exam Date: 10/24/2024 11:10 Report Date: 10/25/2024 05:35 At the request of: CHELSEA GOTTLIEB Procedure: XR hand RT min 3V PROCEDURE: XR hand RT min 3V HISTORY: RIGHT HAND PAIN COMPARISON: None. FINDINGS: BONES:Slight atypical curvature of the second proximal phalanx suggesting remote fracture and healing. No acute fracture or dislocation. No significant degenerative joint disease. SOFT TISSUES:No visible soft tissue swelling. EFFUSION:None visible. OTHER: Negative. XR/XR hand RT min 3V IMPRESSION: 1. No acute findings or significant degenerative joint disease to account for patient's symptoms. Electronically authenticated by: CHELSEA SCHULTE Date: 10/25/2024 05:35
--- OUTSIDE RECORDS SUMMARY | 2024-10-24 11:05 | XMS_ITS | CCD ---
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 Role Phone REQUEST, DR NONE LISTED Primary Care Unavaila jessica ARVIZU, DR RAMONA Ramirez Admitting Unavailable NOLBERTO, DR RAMONA Ramirez Attending Unavailable NOLBERTO, DR RAMONA Ramirez Consulting Unavailable GRECHCLARY ., HILDA ORTEGA Consulting UnavailYessenia Sethi Consulting Unavailable EFREN ., DR SIEGEL Admitting Unavailable EFREN ., DR SIEGEL Attending Unavailable REQUEST, NONE LISTED Primary Care Unavaila ble EFREN ., DR SIEGEL Consulting Unavailable Valeria Claros Unavailable ROBBIN SCHWARTZ Attending Unavailable EFREN, ROBBIN Attending Unavailable SANAZ, SHARON Attending Unavailable EFREN, ROBBIN Attending Unavailable SANAZ, SHARON Attending Unavailable EFREN, ROBBIN Attending Unavailable ROMINA NELSON Attending Unavailable LYLY SADLER Referring Unavailable SANAZ, SHARON Attending Unavailable EFREN, ROBBIN Attending Unavailable EFREN, ROBBIN Attending Unavailable SANAZ, SHARON Attending Unavailable SANAZ, SHARON Attending Unavailable ADELAIDE BOJORQUEZ Attending Unavailable LYLY SADLER Referring Unavailable Lyly Sadler MD Primary Care Provider [phone] Unavailable Primary Care Provider UnavailLyly Looney MD Primary Care Provider [phone] SAM CARO Referring Unavailable LYLY SADLER Primary Care Unavailable SAM CARO Attending Unavailable SAM CARO Referring Unavailable LYLY SADLER Primary Care Unavailable SAM CARO Referring Unavailable LYLY SADLER Primary Care Unavailable Allergies Allergy Classification Reported Allergen(s) Allergy Type Date of Onset Reaction(s) Facility (1 source) Raspberry Propensity to adverse reactions tingles, and itches [facility] Other (5 sources) raspberry allergenic extract; Translations: [RASPBERRY] Drug Allergy 3 Itching [facility] Work Phone: (4 sources) raspberry extract Drug Allergy 3 Itching [facility] Medications Current Medications Medication Drug Class(es) Dates Sig (Normalized) Sig (Original) labetalol hydrochloride 200 mg oral tablet (4 sources) beta-Adrenergic Naresh Start: 04-01-20 24 take 1 tablet by mouth once labetalol (Normodyne) 200 MG tablet Take 1 tablet by mouth 1 (one) time 04/01/2024 Active loratadine 10 mg oral capsule (4 sources) take 1 capsule by mouth in the morning Loratadine (Claritin) 10 MG capsule Take 10 mg by mouth in the morning. Active methylPREDNISolone 4 mg oral tablet (1 source) Corticosteroid Start: 06-06-20 methylPREDNISolone 4 MG as directed Orally for daily dose take half with breakfast, half with dinner for 6 days May, Active NIFEdipine 90 mg osmotic 24 hr extended release oral tablet (5 sources) Dihydropyridine Calcium Channel Naresh Start: 10-20-19 25 take 1 tablet by mouth every twenty-four hours in the morning NIFEdipine XL (PROCARDIA XL) 90 mg 24 hr tablet Take 1 tablet (90 mg total) by mouth in the morning. 90 tablet 3 10/20/2024 Active Start: 07-14-2024 End: 10-20-2024 take 1 tablet by mouth every twenty-four hours in the morning NIFEdipine XL (PROCARDIA XL) 60 mg 24 hr tablet Take 1 tablet (60 mg total) by mouth in the morning. 90 tablet 3 07/14/2024 10/20/2024 Discontinued MV-Min-Fe Fum-FA-DH A ( 1 PO) (4 sources) MV-Min- Fe Fum-FA-DHA ( 1 PO) Take by mouth Active Problems Active Problems Problem Classification Problem Date Documented Da te Episodic/Chronic Abdominal pain (1 source) Upper abdominal pain; Translations: [Upper abdominal pain, unspecified] Episodic Endometriosis (5 sources) Endometriosis (clinical); Translations: [Endometriosis, unspecified] Onset: 3 09-09-2023 Chronic Esophageal disorders (5 sources) Gastroesophageal reflux disease without esophagitis; Translations: [Gastro-esophageal reflux disease without esophagitis] Onset: 3 09-09-2023 Chronic Essential hypertension (4 sources) Essential hypertension; Translations: [Essential (primary) hypertension] Onset: 3 09-09-2023 Chronic 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) Polycystic kidney, unspecified; 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] Onset: 2 09-09-2023 Chronic Headache; including migraine (4 sources) Headache; including migraine; Translations: [HEADACHE UNSPECIFIED] Onset: 2 Immunizations and screening for infectious disease (1 source) Encounter for screening for human papillomavirus (HPV); Translations: [ENC SCREENING HUMAN PAPILLOMAVIRUS] Onset: 3 Episodic Other female genital disorders (4 sources) Pain in female genitalia on intercourse; Translations: [Unspecified dyspareunia] Onset: 3 09-09-2023 Chronic Other gastrointestinal disorders (1 source) Irritable bowel syndrome characterized by constipation; Translations: [Irritable bowel syndrome with constipation] Chronic Other gastrointestinal disorders (1 source) Constipation alternates with diarrhea; Translations: [Other specified symptoms and signs involving the digestive system and abdomen] Episodic Other gastrointestinal disorders (1 source) Constipation; Translations: [Constipation, unspecified] Episodic Other nutritional; endocrine; and metabolic disorders (4 sources) Obesity; Translations: [Obesity, unspecified] Onset: 3 09-09-2023 Chronic Other nutritional; endocrine; and metabolic disorders (1 source) Unintentional weight loss; Translations: [Abnormal weight loss] Episodic Other screening for suspected conditions (not mental disorders or infectious disease) (4 sources) Encounter for screening for malignant neoplasm of cervix; Translations: [ENC SCREENING MALIG NEOPLASM CERV] Onset: 3 Episodic Other upper respiratory disease (4 sources) Chronic rhinitis; Translations: [Chronic rhinitis] Onset: 3 09-14-2023 Chronic Poisoning by nonmedicinal substances (1 source) Toxic effect of venom of bees, accidental (unintentional), initial encounter Episodic Past or Other Problems Problem Classification Problem Date Documented Da te Episodic/Chronic Acute bronchitis (4 sources) Acute bronchiolitis; Translations: [Acute bronchiolitis, unspecified] Onset: 09-09-2023 Resolved: 09-09-2023 09-09-2023 Episodic Other diseases of kidney and ureters (4 sources) Kidney disease; Translations: [Disorder of kidney and ureter, unspecified] Onset: 09-09-2023 09-09-2023 Episodic Otitis media and related conditions (4 sources) Dysfunction of bilateral eustachian tubes; Translations: [Unspecified Eustachian tube disorder, bilateral] Onset: 09-14-2023 09-14-2023 Episodic Residual codes; unclassified (4 sources) Bilateral lower limb edema; Translations: [Localized edema] Onset: 09-09-2023 09-09-2023 Episodic Results Test Name Value Interpretation Reference Range Facility BASIC METABOLIC PANLon 10-11 Anion gap [Moles/Vol] 8 mmol/L Normal 5-15 [facility] Comment on above: Performed By: #### C , 08170-2, 39849-6, 2731-8, 63085-7, 36952-0, 96171-6, BMP, 5196-1, 88950-3, 5193-8, 6969-0, UPCR, SIFE, 95341-5, 6968-2, 2777-1 #### [facility] ([id number]) [address], [address] [place] [address] #### 39204-1 #### [facility] ([id number]) [address] [place] [address] 20876 Calcium [Mass/Vol] 9.4 mg/dL Normal 8.5-10.5 [facility] Comment on above: Performed By: #### C , 49933-2, 85710-4, 2731-8, 64130-5, 77030-3, 08258-3, BMP, 5196-1, 96795-1, 5193-8, 6969-0, UPCR, SIFE, 63528-6, 6968-2, 2777-1 #### [facility] ([id number]) [address] [facility], [address] [place] [address] #### 63123-0 #### [facility] ([id number]) [address] [place] [address] 41178 Chloride [Moles/Vol] 107 mmol/L Normal 98-109 [facility] Comment on above: Performed By: #### C BC, 60156-4, 62902-9, 2731-8, 40224-2, 19626-5, 77767-2, BMP, 5196-1, 78877-5, 5193-8, 6969-0, UPCR, SIFE, 66796-9, 6968-2, 2777-1 #### [facility] ([id number]) [address] [facility], [address] [place] [address] #### 92223-7 #### [facility] ([id number]) [address] [place] [address] 89511 CO2 [Moles/Vol] 28 mmol/L Normal 22-32 [facility] Comment on above: Performed By: #### C CHRISS, 85619-6, 58115-5, 2731-8, 43200-6, 44858-7, 08088-7, BMP, 5196-1, 30283-8, 5193-8, 6969-0, UPCR, SIFE, 95792-9, 6968-2, 2777-1 #### [facility] ([id number]) [address] [facility], [address] [place] [address] #### 13517-1 #### [facility] ([id number]) [address] [place] [address] 19008 Creatinine [Mass/Vol] 0.77 mg/dL Normal 0.40-1.00 [facility] Comment on above: Result Comment: METH OD TRACEABLE TO IDMS STANDARD Performed By: #### C BC, 93522-1, 46365-6, 2731-8, 13590-6, 46147-8, 87009-6, BMP, 5196-1, 59701-7, 5193-8, 6969-0, UPCR, SIFE, 22007-5, 6968-2, 2777-1 #### [facility] ([id number]) [address] [place] [address], [facility] [address] [place] [address] #### 04988-0 #### [facility] ([id number]) [address] [place] [address] 50825 eGFR (CKD-EPI) NON-RACE DEPENDENT >90 Normal >59 [facility] Comment on above: Result Comment: Reported eGFR is based on the CKD-EPI 2020 equation that does not use a race coefficient. Performed By: #### C BC, 31739-8, 80913-7, 2731-8, 81884-4, 97756-4, 26120-6, BMP, 5196-1, 56923-8, 5193-8, 6969-0, UPCR, SIFE, 04231-3, 6968-2, 2777-1 #### [facility] ([id number]) [address] [place] [address], [address] [address] #### 97295-4 #### [facility] ([id number]) [address] [place] [address] 61267 Glucose [Mass/Vol] 89 mg/dL Normal 65-99 [facility] Comment on above: Performed By: #### C BC, 84499-4, 25250-0, 2731-8, 41350-3, 14498-7, 67909-4, BMP, 5196-1, 83604-3, 5193-8, 6969-0, UPCR, SIFE, 62950-0, 6968-2, 2777-1 #### [facility] ([id number]) [address] [place] [address], [address] [place] [address] #### 43492-2 #### [facility] ([id number]) [address] [place] [address] 39456 Potassium [Moles/Vol] 3.7 mmol/L Normal 3.5-5.0 [facility] Comment on above: Performed By: #### C BC, 27578-6, 88348-4, 2731-8, 61493-6, 55908-0, 90830-4, BMP, 5196-1, 85971-0, 5193-8, 6969-0, UPCR, SIFE, 67255-4, 6968-2, 2777-1 #### [facility] ([id number]) [address] [facility], [address] [place] [address] #### 97767-5 #### [facility] ([id number]) [address] [facility] [place] [address] Sodium [Moles/Vol] 143 mmol/L Normal 134-146 [facility] Comment on above: Performed By: #### C CHRISS, 35933-4, 14576-5, 2731-8, 84298-9, 75457-9, 36919-9, BMP, 5196-1, 77191-3, 5193-8, 6969-0, UPCR, SIFE, 03580-8, 6968-2, 2777-1 #### [facility] ([id number]) [address] [facility], [address] [place] [address] #### 59843-5 #### [facility] ([id number]) [address] [place] [address] 63562 Urea nitrogen [Mass/Vol] 12 mg/dL Normal 5-23 [facility] Comment on above: Performed By: #### C CHRISS, 11615-6, 51083-7, 2731-8, 34548-4, 84398-6, 41964-2, BMP, 5196-1, 68255-9, 5193-8, 6969-0, UPCR, SIFE, 76178-0, 6968-2, 2777-1 #### [facility] ([id number]) [address], [address] [place] [address] #### 46248-7 #### [facility] ([id number]) [address] [place] [address] 34930 COMPLETE BLOOD COUNTon 10-11 Erythrocyte distribution width (RBC) [Ratio] 12.8 % Normal 11.5-15.0 [facility] Comment on above: Performed By: #### C BC, 53103-5, 13750-4, 2731-8, 86140-5, 61339-2, 31751-9, BMP, 5196-1, 09715-9, 5193-8, 6969-0, UPCR, SIFE, 76262-0, 6968-2, 2777-1 #### [facility] ([id number]) [address] [place] [address], [address] [place] [address] #### 63386-7 #### [facility] ([id number]) [address] [place] [address] 70934 Hematocrit (Bld) [Volume fraction] 38.9 % Normal 35-47 [facility] Comment on above: Performed By: #### C CHRISS, 51472-7, 99556-4, 2731-8, 06769-2, 31758-5, 35234-3, BMP, 5196-1, 75681-2, 5193-8, 6969-0, UPCR, SIFE, 20471-2, 6968-2, 2777-1 #### [facility] ([id number]) [address] [place] [address], [address] [place] [address] #### 89218-7 #### [facility] ([id number]) [address] [place] [address] 66830 Hemoglobin (Bld) [Mass/Vol] 13.3 g/dL Normal 11.7-15.5 [facility] Comment on above: Performed By: #### C BC, 22844-6, 78201-6, 2731-8, 37787-7, 23736-8, 67638-4, BMP, 5196-1, 94527-5, 5193-8, 6969-0, UPCR, SIFE, 84182-6, 6968-2, 2777-1 #### [facility] ([id number]) [facility] [facility], [address] [place] [address] #### 42216-4 #### [facility] ([id number]) [address] [place] [address] 33680 MCH (RBC) [Entitic mass] 32.0 pg Normal 27-34 [facility] Comment on above: Performed By: #### C BC, 36332-9, 35180-1, 2731-8, 67162-1, 68298-2, 22339-3, BMP, 5196-1, 47333-8, 5193-8, 6969-0, UPCR, SIFE, 61845-3, 6968-2, 2777-1 #### [facility] ([id number]) [address] [place] [address], [address] [place] [id number] #### 00390-3 #### [facility] ([id number]) [address] [place] [address] 26231 MCHC (RBC) [Mass/Vol] 34.3 g/dL Normal 32-36 [facility] Comment on above: Performed By: #### C BC, 47385-8, 11400-5, 2731-8, 88975-0, 49116-0, 48098-4, BMP, 5196-1, 92678-9, 5193-8, 6969-0, UPCR, SIFE, 52375-0, 6968-2, 2777-1 #### [facility] ([id number]) [address] [place] [address], [address] [place] [address] #### 94718-9 #### [facility] ([id number]) [address] [place] [address] 01379 MCV (RBC) [Entitic vol] 93 fL Normal 80-100 [facility] Comment on above: Performed By: #### C BC, 01049-4, 98727-9, 2731-8, 98096-5, 08883-9, 61265-8, BMP, 5196-1, 02817-6, 5193-8, 6969-0, UPCR, SIFE, 26428-4, 6968-2, 2777-1 #### [facility] ([id number]) [address] [place] [address], [address] [place] [address] #### 10009-8 #### [facility] ([id number]) [address] [place] [address] 86372 Platelet mean volume (Bld) [Entitic vol] 9.4 fL Normal 7-12 [facility] Comment on above: Performed By: #### C CHRISS, 89886-0, 48835-8, 2731-8, 40220-0, 17165-5, 85368-8, BMP, 5196-1, 01188-0, 5193-8, 6969-0, UPCR, SIFE, 26446-1, 6968-2, 2777-1 #### [facility] ([id number]) [address] [place] [address], [address] [place] [address] #### 73998-8 #### [facility] ([id number]) [address] [place] [address] 28310 Platelets (Bld) [#/Vol] 268 10*3/uL Normal 150-450 [facility] Comment on above: Performed By: #### C BC, 09954-9, 58858-8, 2731-8, 83525-1, 11816-2, 61782-8, BMP, 5196-1, 05261-3, 5193-8, 6969-0, UPCR, SIFE, 10359-6, 6968-2, 2777-1 #### [facility] ([id number]) [address] [place] [address], [address] [place] [address] #### 63350-8 #### [facility] ([id number]) [address] [place] [address] 61883 RBC COUNT 4.17 X10E12/L Normal 3.80-5.20 [facility] Comment on above: Performed By: #### C BC, 01175-8, 31555-3, 2731-8, 66362-6, 68051-7, 00964-4, BMP, 5196-1, 02922-4, 5193-8, 6969-0, UPCR, SIFE, 27314-8, 6968-2, 2777-1 #### [facility] ([id number]) [address] [place] [address], [address] [place] [address] #### 13570-6 #### [facility] ([id number]) [address] [place] [address] 61881 WBC (Bld) [#/Vol] 5.5 10*3/uL Normal 4.0-11.0 [facility] Comment on above: Performed By: #### C BC, 43631-0, 49480-8, 2731-8, 40699-1, 74642-4, 73676-3, BMP, 5196-1, 56752-8, 5193-8, 6969-0, UPCR, SIFE, 84036-5, 6968-2, 2777-1 #### [facility] ([id number]) [address] [place] [address], [address] [place] [address] #### 18717-9 #### [facility] ([id number]) [address] [place] [address] 16452 FREE LIGHT CHAINSon 10-11-19 25 FREE MARY ANN/LAMBD RATIO 1.32 Normal 0.26-1.65 [facility] Comment on above: Performed By: #### 1 9123-9, 2777-1, BMP, CBC, UPCR #### [facility] ([id number]) [address], [address] [place] [address] FREE KAPPA LT CHAINS 1.50 mg/dL Normal 0.33-1.94 [facility] Comment on above: Performed By: #### 1 9123-9, 2777-, BMP, CBC, UPCR #### [facility] ([id number]) [address], [address] [place] [address] FREE LAMBDA LT CHAINS 1.14 mg/dL Normal 0.57-2.63 [facility] Comment on above: Performed By: #### 1 9123-9, 277-, BMP, CBC, UPCR #### [facility] ([id number]) [address], [address] [place] [address] Glomerular basement membrane IgG Qn (S)on 10-11-2024 GBM IgG Ab <0.2 Normal <1.0 [facility] Comment on above: Performed By: #### 1 9123-9, 277-, BMP, CBC, UPCR #### [facility] ([id number]) [address], [address] [place] [address] HBV core Ab IA Qlon 10-11-19 25 ANTI HBc Non-Reactive Normal NRCT [facility] Comment on above: Result Comment: NEW TEST METHOD Performed By: #### 1 9123-9, 2777-, BMP, CBC, UPCR #### [facility] ([id number]) [address], [address] [place] [address] HBV surface Ab IA Qnon 10-11 Anti HBs quant. 59.60 mIU/mL Normal [facility] Comment on above: Result Comment: NOTE Vaccinated: >=10.00 mIU/mL, Positive (Immune) Unvaccinated: <10.00 mIU/mL, Negative (Not Immune) Interpretive values have changed due to implementation of a new method. Values run higher than previous method. Performed By: #### 1 9123-9, 2777-, BMP, CBC, UPCR #### [facility] ([id number]) [address], [address] [place] [address] HBV surface Ag IA Qlon 10-11 HEPATITIS B SURF AG Non-Reactive Normal NRCT Pro [facility] Comment on above: Result Comment: NEW TEST METHOD Performed By: #### 1 9123-9, 2777-1, BMP, CBC, UPCR #### [facility] ([id number]) [address], [address] [place] [address] HCV Ab IA Qlon 10-11-2024 ANTI HCV W/PCR REFLX Non-Reactive Normal NRCT Pr [facility] Comment on above: Result Comment: NEW TEST METHOD NOTE If recent infection suspected, recommend repeat testing (>2 months). Rwcdza-fo-yohhti ratio is <1.00. Performed By: #### 1 9123-9, 2777-1, BMP, CBC, UPCR #### [facility] ([id number]) [address] [facility] [place] [address] HIV 1+2 Ab+HIV1 p24 Ag IA Ql on 10-11-2024 HIV 1 and 2 Ab/Ag Screen Non-Reactive Normal NRCT [facility] Comment on above: Result Comment: NEW TEST METHOD NOTE This information has been disclosed to you from confidential records protected from disclosure by state law. You shall make no further disclosure of this information without the specific, written and informed release of the individual to whom it pertains, or as otherwise permitted by state law. A general authorization for the release of medical or other information is not sufficient for the purpose of the release of HIV test results or diagnoses. Performed By: #### 1 9123-9, 2777-1, BMP, CBC, UPCR #### [facility] ([id number]) [address], [address] [place] [address] MAGNESIUMon 10-11-2024 Magnesium [Mass/Vol] 1.7 mg/dL Low 1.8-2.6 [facility] Comment on above: Performed By: #### 1 9123-9, 2777-1, BMP, CBC, UPCR #### [facility] ([id number]) [address], [address] [place] [address] Myeloperoxidase Ab Qn (S)on 10-11-2024 Myeloperoxidase Ab <0.2 Normal <1.0 [facility] Comment on above: Performed By: #### 1 9123-9, 2777-, BMP, CBC, UPCR #### [facility] ([id number]) [address], [address] [place] [address] Neutrophil cytoplasmic Ab pa holley IF (S)on 10-11-2024 c-ANCA Negative Normal Negative [facility] Comment on above: Performed By: #### 1 9123-9, 2777-1, BMP, CBC, UPCR #### [facility] ([id number]) [address], [address] [place] [address] p-ANCA Negative Normal Negative [facility] Comment on above: Result Comment: NOTE Negative for cANCA and pANCA patterns by immunofluorescence. ADDITIONAL INFORMATION This test was developed and its performance characteristics determined by [facility] in a manner consistent with CLIA requirements. This test has not been cleared or approved by the U.S. Food and Drug Administration. Test Performed by: [facility] [address] [place] [address] [address] Radio Installer: Hai Carias Ph.D.; CLIA# [id number] Performed By: #### 1 9123-9, 2777-1, BMP, CBC, UPCR #### [facility] ([id number]) [address], [address] [place] [address] Nuclear Ab IA Ql (S)on 10-11 CYNTHIA Screen w/reflex Negative Normal NEG [facility] Comment on above: Result Comment: Testing performed using multiplex flow immunoassay. Eleven different antigens associated with systemic autoimmune diseases (dsDNA,Sm,Sm/SUPERVISOR BACKFILLING,SUPERVISOR BACKFILLING,Chromatin, SSA,SSB,Lily-1,Scl70,Ribo P,Centromere B) are included in this screening test. Performed By: #### 1 9123-9, 2777-, BMP, CBC, UPCR #### [facility] ([id number]) [address], [address] [place] [address] PHOSPHORUSon 10-11-2024 Phosphate [Mass/Vol] 4.0 mg/dL Normal 2.4-4.9 [facility] Comment on above: Performed By: #### 1 9123-9, 2777-, BMP, CBC, UPCR #### [facility] ([id number]) [address], [address] [place] [address] PROTEIN CREAT RATIOon 2024 RANDOM URINE PROTEIN 80 mg/L Normal <120 [facility] Comment on above: Performed By: #### 1 9123-9, 277-, BMP, CBC, UPCR #### [facility] ([id number]) [address] [address] [place] [address] U/PRO/QUALITY ASSURANCE SUPERVISOR BODY RATIO CALC 0.04 Normal <0.2 [facility] Comment on above: Result Comment: Neph rotic Syndrome is associated with ratios >3.5 Performed By: #### 1 9123-9, 2777-, BMP, CBC, UPCR #### [facility] ([id number]) [address], [address] [place] [address] URINE CREATININE,RDM 183.27 mg/dL Normal Pr [facility] Comment on above: Performed By: #### 1 9123-9, 2777-, BMP, CBC, UPCR #### [facility] ([id number]) [address], [address] [place] [address] Parathyrin.intact [Mass/Vol] on 10-11-2024 PTH INTACT 27 pg/mL Normal 12-88 [facility] Comment on above: Performed By: #### 1 9123-9, 2777-1, BMP, CBC, UPCR #### [facility] ([id number]) [address] [place] [address] Proteinase 3 Ab Qn (S)on Proteinase 3 IgG Ab <0.2 Normal <1.0 [facility] Comment on above: Performed By: #### 1 9123-9, 2777-1, BMP, CBC, UPCR #### [facility] ([id number]) [address] [place] [address], [address] [address] SERUM IMMUNOFIXATIONon 10-11 IgA [Mass/Vol] 155 mg/dL Normal 68-378 [facility] Comment on above: Performed By: #### C BC, 31658-5, 66267-5, 2731-8, 97079-5, 83434-1, 13370-8, BMP, 5196-1, 35828-2, 5193-8, 6969-0, UPCR, SIFE, 25031-6, 6968-2, 2777-1 #### [facility] ([id number]) [address] [place], [place] [id number] #### 15026-7 #### [facility] ([id number]) [address] [place] [address], [place] [address] IgG [Mass/Vol] 974 mg/dL Normal 635-1741 [facility] Comment on above: Performed By: #### C BC, 44471-5, 14775-6, 2731-8, 25593-5, 43300-7, 26282-9, BMP, 5196-1, 76510-8, 5193-8, 6969-0, UPCR, SIFE, 38968-0, 6968-2, 2777-1 #### [facility] ([id number]) [address] [place] [address] #### [id number] #### [facility] ([id number]) [address] [place] [address] IgM [Mass/Vol] 62 mg/dL Normal 45-281 [facility] Comment on above: Performed By: #### C BC, 60097-1, 29454-7, 2731-8, 38382-7, 07523-4, 29848-2, BMP, 5196-1, 26309-9, 5193-8, 6969-0, UPCR, SIFE, 66917-5, 6968-2, 2777-1 #### [facility] ([id number]) [address], [address] [place] [address] #### 59181-6 #### [facility] ([id number]) [address] [place] [address] IMMUNE PROFILE INTERP Unremarkable patte rn and quantitation, no monoclonal bands. Normal [facility] Comment on above: Performed By: #### C BC, 44056-2, 70594-1, 2731-8, 52491-2, 86704-4, 20721-7, BMP, 5196-1, 05387-8, 5193-8, 6969-0, UPCR, SIFE, 48742-7, 6968-2, 2777-1 #### [facility] ([id number]) [address], [address] [place] [address] #### 72537-5 #### [facility] ([id number]) [address] [place] [address] URINALYSISon 10-11-2024 Bilirubin Ql (U) Negative Normal NEG [facility] Comment on above: Performed By: #### 1 9123-9, 2777-1, BMP, CBC, UPCR #### [facility] ([id number]) [address], [address] [place] [address] BLOOD/HGB Negative Normal NEG [facility] Comment on above: Performed By: #### 1 9123-9, 277-, BMP, CBC, UPCR #### [facility] ([id number]) [address], [address] [place] [address] Color (U) ORANGE Abnormal YELLOW [facility] Comment on above: Performed By: #### 1 91-, 277-, BMP, CBC, UPCR #### [facility] ([id number]) [address], [address] [place] [address] Glucose Ql (U) Negative Normal NEG [facility] Comment on above: Performed By: #### 1 91-, 27703-28, BMP, CBC, UPCR #### [facility] ([id number]) [address], [address] [place] [address] Ketones Ql (U) Negative Normal NEG [facility] Comment on above: Performed By: #### 1 9122-, 27703-28, BMP, CBC, UPCR #### [facility] ([id number]) [address], [address] [place] [address] Leukocyte esterase Test strip Ql (U) Negative Normal NEG [facility] Comment on above: Performed By: #### 1 91-9, 277-, BMP, CBC, UPCR #### [facility] ([id number]) [address], [address] [place] [address] MUCOUS PRESENT Abnormal NONE [facility] Comment on above: Performed By: #### 1 91-, 27703-28, BMP, CBC, UPCR #### [facility] ([id number]) [address], [address] [place] [address] Nitrite Ql (U) Negative Normal NEG [facility] Comment on above: Performed By: #### 1 9123-9, 277-, BMP, CBC, UPCR #### [facility] ([id number]) [address], [address] [place] [address] pH (U) 5.5 [pH] Normal 5.0-8.5 [facility] Comment on above: Performed By: #### 1 9123-9, 2777-1, BMP, CBC, UPCR #### [facility] ([id number]) [address], [address] [place] [address] Protein Ql (U) Negative Normal NEG [facility] Comment on above: Performed By: #### 1 9123-9, 2777-, BMP, CBC, UPCR #### [facility] ([id number]) [address] [address] [place] [address] R.B.CELLS 2 /hpf Normal 0-5 [facility] Comment on above: Performed By: #### 1 9123-9, 2777-, BMP, CBC, UPCR #### [facility] ([id number]) [address] [place] [address] Specific gravity (U) [Rel density] 1.024 Normal 1.003-1.035 [facility] Comment on above: Performed By: #### 1 9123-9, 2777-, BMP, CBC, UPCR #### [facility] ([id number]) [address], [facility] [address] [place] [address] SQUAMOUS EPITHELIUM 6 /hpf High 0-5 [facility] Comment on above: Performed By: #### 1 9123-9, 2777-, BMP, CBC, UPCR #### [facility] ([id number]) [address] [address] [place] [address] TURBIDITY CLOUDY Abnormal CLEAR [facility] Comment on above: Performed By: #### 1 9123-9, 2777-, BMP, CBC, UPCR #### [facility] ([id number]) [address] [address] [place] [address] Urobilinogen (U) [Mass/Vol] mg/dL Normal <1.1 [facility] Comment on above: Performed By: #### 1 9123-9, 2777-1, BMP, CBC, UPCR #### [facility] ([id number]) [address], [address] [place] [address] W.B.CELLS 1 /hpf Normal 0-5 [facility] Comment on above: Performed By: #### 1 9123-9, 2777-, BMP, CBC, UPCR #### [facility] ([id number]) [address], [address] [place] [address] Vitamin D+Metabolites [Mass/ Vol]on 10-11-2024 VITAMIN D 25 HYD TOT 18.5 ng/mL Low 30-100 [facility] Comment on above: Result Comment: Vitamin D status 25 [place] Vitamin D Deficiency <20 ng/mL Insufficiency 20-29 ng/mL Sufficiency 30-100 ng/mL Toxicity >100 ng/mL NOTE: A pediatric reference range has not been established by the lacquer machine feeder of this kit. The [place] [employer] recommends a Vitamin D level of = or >20ng/mL in infants and children. Performed By: #### 1 9123-9, 2777-, BMP, CBC, UPCR #### [facility] ([id number]) [address], [address] [place] [address] US RETROPERITONEAL COMPLETEo n 07-19-2024 US RETROPERITONEAL COMPLETE US RETROPERITONEAL COMPLETE HISTORY: A 28-year-old female with the history of the autosomal dominant polycystic kidney disease. Check the size. TECHNIQUE: Multiple real-time images of both kidneys and the urinary bladder are obtained. Color Doppler study is performed. COMPARISON: No relevant prior studies are available for comparison. FINDINGS: Both kidneys are normal in position. Right kidney measures 15.5 x 7.9 x 7.2 cm. Right renal cortical thickness measures 0.7 cm. Left kidney may just 14.2 x 6.9 x 6.4 cm. Left renal cortical thickness measures 0.7 cm. There are multiple small echogenic foci in the both kidneys suggestive of expectations or calculi. There is no evidence of hydronephrosis in the either kidney. The largest calculus in the left mid kidney measures 6 mm. There are numerous variable size cysts in both kidneys. Largest cyst in the right kidney measures 4.0 x 4.0 x 3.4 cm in left kidney measures 4.2 x 3.1 x 2.7 cm. No solid-appearing renal mass is identified. Urinary bladder volume is 656 mL. Bilateral ureteric jets are visualized. Small amount of post void residual urine is seen as measures 44 mL. No intraluminal abnormality seen. IMPRESSION: * Numerous variable sized cysts in both kidneys consistent with polycystic kidney disease. Largest cyst measurements as described above. * There are numerous calcifications or calculi in either kidney without evidence of hydronephrosis. * Small amount of post void residual urine and measures 44 mL. * Renal measurements as described above. Finalized by Misael Knox MD on 07/19/2024 5:08 PM Normal [facility] BASIC METABOLIC PANLon 07-13 Anion gap [Moles/Vol] 9 mmol/L Normal 5-15 [facility] Comment on above: Performed By: #### 1 9123-9, 2777-1, BMP, CBC, UPCR #### [facility] ([id number]) [address], [address] [place] [address] Calcium [Mass/Vol] 9.2 mg/dL Normal 8.5-10.5 [facility] Comment on above: Performed By: #### 1 9123-9, 2777-, BMP, CBC, UPCR #### [facility] ([id number]) [address], [address] [place] [address] Chloride [Moles/Vol] 107 mmol/L Normal 98-109 [facility] Comment on above: Performed By: #### 1 9123, 2776-09, BMP, CBC, UPCR #### [facility] ([id number]) [address], [address] [place] [address] CO2 [Moles/Vol] 26 mmol/L Normal 22-32 [facility] Comment on above: Performed By: #### 1 919, 2776-09, BMP, CBC, UPCR #### [facility] ([id number]) [address], [address] [place] [address] Creatinine [Mass/Vol] 0.83 mg/dL Normal 0.40-1.00 [facility] Comment on above: Result Comment: METH OD TRACEABLE TO IDMS STANDARD Performed By: #### 1 9123-05, 2776-09, BMP, CBC, UPCR #### [facility] ([id number]) [address], [address] [place] [address] eGFR (CKD-EPI) NON-RACE DEPENDENT >90 Normal >59 [facility] Comment on above: Result Comment: Reported eGFR is based on the CKD-EPI 2020 equation that does not use a race coefficient. Performed By: #### 1 9123-05, 2776-09, BMP, CBC, UPCR #### [facility] ([id number]) [address] [address] [place] [address] Glucose [Mass/Vol] 97 mg/dL Normal 65-99 [facility] Comment on above: Performed By: #### 1 9, 2776-09, BMP, CBC, UPCR #### [facility] ([id number]) [address] [address] [place] [address] Potassium [Moles/Vol] 4.2 mmol/L Normal 3.5-5.0 [facility] Comment on above: Performed By: #### 1 9123-9, 277-, BMP, CBC, UPCR #### [facility] ([id number]) [address], [address] [place] [address] Sodium [Moles/Vol] 142 mmol/L Normal 134-146 [facility] Comment on above: Performed By: #### 1 9123-9, 27703-28, BMP, CBC, UPCR #### [facility] ([id number]) [address] [address] [place] [address] Urea nitrogen [Mass/Vol] 18 mg/dL Normal 5-23 [facility] Comment on above: Performed By: #### 1 9122-9, 2776-09, BMP, CBC, UPCR #### [facility] ([id number]) [address] [address] COMPLETE BLOOD COUNTon 07-13 Erythrocyte distribution width (RBC) [Ratio] 12.9 % Normal 11.5-15.0 [facility] Comment on above: Performed By: #### 1 9122-, 2776-09, BMP, CBC, UPCR #### [facility] ([id number]) [address] [address] Hematocrit (Bld) [Volume fraction] 42.6 % Normal 35-47 [facility] Comment on above: Performed By: #### 1 9123-9, 27703-28, BMP, CBC, UPCR #### [facility] ([id number]) [address] [address] Hemoglobin (Bld) [Mass/Vol] 14.4 g/dL Normal 11.7-15.5 [facility] Comment on above: Performed By: #### 1 9123-9, 277-, BMP, CBC, UPCR #### [facility] ([id number]) [address] [address] MCH (RBC) [Entitic mass] 32.3 pg Normal 27-34 [facility] Comment on above: Performed By: #### 1 91-9, 27703-28, BMP, CBC, UPCR #### [facility] ([id number]) [address], [facility] [address] [place] [address] MCHC (RBC) [Mass/Vol] 33.8 g/dL Normal 32-36 [facility] Comment on above: Performed By: #### 1 9123-9, 27703-28, BMP, CBC, UPCR #### [facility] ([id number]) [address], [facility] [address] [place] [address] MCV (RBC) [Entitic vol] 96 fL Normal 80-100 [facility] Comment on above: Performed By: #### 1 91, 27703-28, BMP, CBC, UPCR #### [facility] ([id number]) [address], [facility] [address] [place] [address] Platelet mean volume (Bld) [Entitic vol] 9.0 fL Normal 7-12 [facility] Comment on above: Performed By: #### 1 9123-9, 2776-09, BMP, CBC, UPCR #### [facility] ([id number]) [address], [facility] [address] [place] [address] Platelets (Bld) [#/Vol] 269 10*3/uL Normal 150-450 [facility] Comment on above: Performed By: #### 1 9123-9, 27703-28, BMP, CBC, UPCR #### [facility] ([id number]) [address], [facility] [address] [place] [address] RBC COUNT 4.45 X10E12/L Normal 3.80-5.20 [facility] Comment on above: Performed By: #### 1 9123-9, 27703-28, BMP, CBC, UPCR #### [facility] ([id number]) [address] [address] [place] [address] WBC (Bld) [#/Vol] 5.1 10*3/uL Normal 4.0-11.0 [facility] Comment on above: Performed By: #### 1 9123-9, 2777-1, BMP, CBC, UPCR #### [facility] ([id number]) [address], [address] [place] [address] MAGNESIUMon 07-13-2024 Magnesium [Mass/Vol] 1.8 mg/dL Normal 1.8-2.6 [facility] Comment on above: Performed By: #### 1 9123-9, 2777-, BMP, CBC, UPCR #### [facility] ([id number]) [address], [address] [place] [address] PHOSPHORUSon 07-13-2024 Phosphate [Mass/Vol] 3.7 mg/dL Normal 2.4-4.9 [facility] Comment on above: Performed By: #### 1 9123-9, 2777-, BMP, CBC, UPCR #### [facility] ([id number]) [address], [address] [place] [address] PROTEIN CREAT RATIOon 2023 RANDOM URINE PROTEIN 120 mg/L High <120 [facility] Comment on above: Performed By: #### 1 9123-9, 2777-, BMP, CBC, UPCR #### [facility] ([id number]) [address], [address] [place] [address] U/PRO/QUALITY ASSURANCE SUPERVISOR BODY RATIO CALC 0.09 Normal <0.2 [facility] Comment on above: Result Comment: Neph rotic Syndrome is associated with ratios >3.5 Performed By: #### 1 9123-9, 2777-1, BMP, CBC, UPCR #### [facility] ([id number]) [address], [address] [place] [address] URINE CREATININE,RDM 140.44 mg/dL Normal [facility] Comment on above: Performed By: #### 1 9123-9, 2777-1, BMP, CBC, UPCR #### [facility] ([id number]) [address] [place] [address] URINALYSISon 07-13-2024 Bilirubin Ql (U) Negative Normal NEG [facility] Comment on above: Performed By: #### U A #### [facility] ([id number]) [address], [address] [place] [address] BLOOD/HGB Negative Normal NEG [facility] Comment on above: Performed By: #### U A #### [facility] ([id number]) [address] [place] [address] Color (U) YELLOW Normal YELLOW [facility] Comment on above: Performed By: #### U A #### [facility] ([id number]) [address], [address] [place] [address] Glucose Ql (U) Negative Normal NEG [facility] Comment on above: Performed By: #### U A #### [facility] ([id number]) [address] [place] [address] Ketones Ql (U) Negative Normal NEG [facility] Comment on above: Performed By: #### U A #### [facility] ([id number]) [address] [place] [address] Leukocyte esterase Test strip Ql (U) Negative Normal NEG [facility] Comment on above: Performed By: #### U A #### [facility] ([id number]) [address] [place] [address] MUCOUS PRESENT Abnormal NONE [facility] Comment on above: Performed By: #### U A #### [facility] ([id number]) [address], [address] [place] [address] Nitrite Ql (U) Negative Normal NEG [facility] Comment on above: Performed By: #### U A #### [facility] ([id number]) [address] [address] [place] [address] pH (U) 5.5 [pH] Normal 5.0-8.5 [facility] Comment on above: Performed By: #### U A #### [facility] ([id number]) [address] [facility] [address] [place] [address] Protein Ql (U) Trace Abnormal NEG [facility] Comment on above: Performed By: #### U A #### [facility] ([id number]) [address] [facility] [address] [place] [address] R.B.CELLS 1 /hpf Normal 0-5 [facility] Comment on above: Performed By: #### U A #### [facility] ([id number]) [address] [facility] [address] [place] [address] Specific gravity (U) [Rel density] 1.025 Normal 1.003-1.035 [facility] Comment on above: Performed By: #### U A #### [facility] ([id number]) [address] [place] [address] [address] [place] [address] SQUAMOUS EPITHELIUM 20 /hpf High 0-5 [facility] Comment on above: Performed By: #### U A #### [facility] ([id number]) [address] [address] [place] [address] TURBIDITY CLEAR Normal CLEAR [facility] Comment on above: Performed By: #### U A #### [facility] ([id number]) [address] [place] [address] [address] [place] [address] Urobilinogen (U) [Mass/Vol] mg/dL Normal <1.1 [facility] Comment on above: Performed By: #### U A #### [facility] ([id number]) [address] [facility] [address] [place] [address] W.B.CELLS 2 /hpf Normal 0-5 [facility] Comment on above: Performed By: #### U A #### [facility] ([id number]) [address] [facility] [place] [address] IGP,APTIMA HPV,AGE GDLNon AGE GDLN ACOG TESTING Note . [facility] Comment on above: TESTS RESULT FLAG UN [facility] REF RANGE LAB Clinician Provided Cytology Information Source.............Cervix;Endocervix No. of containers..01 ThinPrep Vial Age Algo ACOG Ligia... FLAG LEGEND: L-Low Normal,H-High Normal,LL-Alert Low,HH-Alert High <-Panic Low,>-Panic High,A-Abnormal,AA-Critical Abnormal Performed at: 01 [facility] [address] [facility] [address] Gillian Guillaume MD, IGP, RFX APTIMA HPV ASCU Note . [facility] Comment on above: TESTS RESULT FLAG UN ITS REF RANGE LAB DIAGNOSIS: 02 NEGATIVE FOR INTRAEPITHELIAL LESION OR MALIGNANCY. Specimen adequacy: 02 Satisfactory for evaluation. Endocervical and/or squamous metaplastic cells (endocervical component) are present. Performed by: 02 Matt Martínez, Material Control Analyst ([facility]) . 02 Note: Note 02 The Pap smear is a screening test designed to aid in the detection of premalignant and malignant conditions of the uterine cervix. It is not a diagnostic procedure and should not be used as the sole means of detecting cervical cancer. Both false-positive and false-negative reports do occur. Test Methodology: Note 02 This liquid based ThinPrep(R) pap test was screened with the use of an image guided system. . 02 The HPV DNA reflex criteria were not met with this specimen result therefore, no HPV testing was performed. FLAG LEGEND: L-Low Normal,H-High Normal,LL-Alert Low,HH-Alert High <-Panic Low,>-Panic High,A-Abnormal,AA-Critical Abnormal Performed at: [address] [place] [address] Gillian Guillaume MD, Performed at: =G - [facility] [address] [id number] [employer] [address] [employer] Installer: Gillian Guillaume MD, Phone: [phone] Performed at: - [facility] [id number] [employer] [address] [employer] Installer: Gillian Guillaume MD, Phone: [phone] [facility]AT[facility] PAP ACOG PANEL 2: 21 to 29on 03-29-2023 . . Normal [facility] Comment on above: Performed By: #### 4 [id number] #### [facility] [address] [place] [address] Dr. Narendra Franks Age Gdln ACOG Testing 21-29 [facility] Comment on above: Performed By: #### 4 [id number] #### [facility] [address] [place] [address] Dr. Narendra Franks DIAGNOSIS: Comment Normal [facility] Comment on above: Result Comment: NEGA TIVE FOR INTRAEPITHELIAL LESION OR MALIGNANCY. Performed By: #### 4 [id number] #### [facility] [address] [place] [address] Dr. Narendra Franks Methodology: Comment [facility] Comment on above: Result Comment: This liquid based ThinPrep(R) pap test was screened with the use of an image guided system. Performed By: #### 4 [id number] #### [facility] [address] [place] [address] Dr. Narendra Franks Note: Comment [facility] Comment on above: Result Comment: The Pap smear is a screening test designed to aid in the detection of premalignant and malignant conditions of the uterine cervix. It is not a diagnostic procedure and should not be used as the sole means of detecting cervical cancer. Both false-positive and false-negative reports do occur. . Performed By: #### 4 [id number] #### [facility] [address] [place] [address] Dr. Narendra Franks Performed by: Comment Normal [facility] Comment on above: Result Comment: Dhruv Smith, Material Control Analyst (ASCP) Performed By: #### 4 [id number] #### [facility] [address] [place] [address] Dr. Narendra Franks Reflex Criteria: Comment [facility] Comment on above: Result Comment: The HPV DNA reflex criteria were not met with this specimen result therefore, no HPV testing was performed. . Performed By: #### 4 [id number] #### [facility] [address] [place] [address] Dr. Narendra Franks Specimen adequacy: Comment Normal [facility] Comment on above: Result Comment: Sati sfactory for evaluation. Endocervical and/or squamous metaplastic cells (endocervical component) are present. Performed By: #### 4 [id number] #### [facility] [address] [place] [address] Dr. Narendra Franks CBC AUTO DIFFon 06-26-2022 BASO # 0.0 103/ul Normal 0.0-0.1 [facility] Comment on above: Performed By: #### C BC #### [facility] [address] [place] [address] Dr. Narendra Franks Basophils/100 WBC (Bld) 0.4 % Normal 0.2-2.0 [facility] Comment on above: Performed By: #### C BC #### [facility] [address] [place] [address] Dr. Narendra Franks EO # 0.3 103/ul Normal 0.0-0.7 [facility] Comment on above: Performed By: #### C BC #### [facility] [address] [place] [address] Dr. Narendra Franks Eosinophils/100 WBC (Bld) 3.5 % Normal 0.9-7.0 [facility] Comment on above: Performed By: #### C BC #### [facility] [address] [place] [address] Dr. Narendra Franks Erythrocyte distribution width (RBC) [Ratio] 14.1 % Normal 11.0-15.0 [facility] Comment on above: Performed By: #### C BC #### [facility] [address] [place] [address] Dr. Narendra Franks Hematocrit (Bld) [Volume fraction] 38.2 % Normal 36.0-48.0 [facility] Comment on above: Performed By: #### C BC #### [facility] [address] [place] [address] Dr. Narendra Franks Hemoglobin (Bld) [Mass/Vol] 12.6 g/dL Normal 12.0-16.0 [facility] Comment on above: Performed By: #### C BC #### [facility] [address] [place] [address] Dr. Narendra Franks IG # 0.01 10e3/ul Normal 0.00-0.03 [facility] Comment on above: Performed By: #### C BC #### [facility] [address] [place] [address] Dr. Narendra Franks IG % 0.1 % Normal 0.0-0.5 [facility] Comment on above: Performed By: #### C BC #### [facility] [address] [place] [address] Dr. Narendra Franks LYMPH # 2.4 103/ul Normal 1.2-3.8 [facility] Comment on above: Performed By: #### C BC #### [facility] [address] [place] [address] Dr. Narendra Franks Lymphocytes/100 WBC (Bld) 30.4 % Normal 20.5-60.0 [facility] Comment on above: Performed By: #### C BC #### [facility] [address] [place] [address] Dr. Narendra Franks MANUAL DIFF REQ NO Normal [facility] Comment on above: Performed By: #### C BC #### [facility] [address] [place] [address] Dr. Narendra Franks MCH (RBC) [Entitic mass] 30.4 pg Normal 26.7-34.0 [facility] Comment on above: Performed By: #### C BC #### [facility] [address] [place] [address] Dr. Narendra Franks MCHC (RBC) [Mass/Vol] 33.0 g/dL Normal 29.9-35.2 [facility] Comment on above: Performed By: #### C BC #### [facility] [address] [place] [address] Dr. Narendra Franks MCV (RBC) [Entitic vol] 92.0 fL Normal 81.0-99.0 [facility] Comment on above: Performed By: #### C BC #### [facility] [address] [place] [address] Dr. Narendra Franks MONO # 0.5 103/ul Normal 0.3-0.8 [facility] Comment on above: Performed By: #### C BC #### [facility] [address] [place] [address] Dr. Narendra Franks Monocytes/100 WBC (Bld) 6.3 % Normal 1.7-12.0 [facility] Comment on above: Performed By: #### C BC #### [facility] [address] [place] [address] Dr. Narendra Franks NEUT # 4.7 103/ul Normal 1.4-6.5 [facility] Comment on above: Performed By: #### C BC #### [facility] [address] [place] [address] Dr. Narendra Franks Neutrophils/100 WBC (Bld) 59.3 % Normal 43.0-75.0 [facility] Comment on above: Performed By: #### C BC #### [facility] [address] [place] [address] Dr. Narendra Franks Platelet mean volume (Bld) [Entitic vol] 10.5 fL Normal 9.5-13.5 [facility] Comment on above: Performed By: #### C BC #### [facility] [address] [place] [address] Dr. Narendra Franks PLT 272 103/ul Normal 150-450 [facility] Comment on above: Performed By: #### C BC #### [facility] [address] [place] [address] Dr. Narendra Franks RBC 4.15 106/ul Critically low 4.20-5.40 [facility] Comment on above: Performed By: #### C BC #### [facility] [address] [place] [address] Dr. Narendra Franks WBC 8.0 103/ul Normal 4.0-11.0 [facility] Comment on above: Performed By: #### C BC #### [facility] [address] [place] [address] Dr. Narendra Franks CRPon 06-26-2022 CRP [Mass/Vol] mg/L Normal <=1.0 [facility] Comment on above: Performed By: #### C #### [facility] [address] YENI ZULETAon [address] YENI ZULETA INDICATION: 26 years old; Female. Headache and ear pain for 6 days. TECHNIQUE: CT Head (ax/cor/sag reformats). Ionizing radiation dose reduced via iterative reconstruction/FBP blend and body size kV/mA adjustment. Comparison: None FINDINGS: POSTOPERATIVE CHANGES: None. BRAIN PARENCHYMA: No hemorrhage, mass or acute infarct. Normal morales/white differentiation. VENTRICLES/EXTRA-AXIA L SPACES: Normal in size for patient's age. [...] ultrasound is recommended. Electronically authenticated by: YESSENIA IHCKEY Date: 2022-06-26 21:58 Normal [facility] MONOon 06-26-2022 Monocytes (Bld) [#/Vol] Negative Normal NEGATIVE [facility] Comment on above: Performed By: #### M MORGAN, PREG #### [facility] [address] [place] [address] Dr. Narendra Franks PREG HCG QUALon 06-26-2022 , QUAL Negative Normal NEGATIVE [facility] Comment on above: Performed By: #### M MORGAN PREG #### [facility] [address] [place] [address] Dr. Narendra Franks PROF CHEM 8 (BAS METB)on Anion gap [Moles/Vol] 9.8 mmol/L Normal [facility] Comment on above: Performed By: #### B MP #### [facility] [address] [place] [address] Dr. Narendra Franks Calcium [Mass/Vol] 8.5 mg/dL Normal 8.5-10.1 [facility] Comment on above: Performed By: #### B MP #### [facility] [address] [address] [address] Narendra Franks Chloride [Moles/Vol] 104 mmol/L Normal 98-107 [facility] Comment on above: Performed By: #### B MP #### [facility] [address] [place] [address] Dr. Narendra Franks CO2 [Moles/Vol] 28.0 mmol/L Normal 21.0-32.0 [facility] Comment on above: Performed By: #### B MP #### [facility] [address] [address] [address] Narendra Franks Creatinine [Mass/Vol] 0.77 mg/dL Normal 0.55-1.02 [facility] Comment on above: Performed By: #### B MP #### [facility] [address] [address] [address] Narendra Franks EGFR-AF WELSH >60 Normal >=60 [facility] Comment on above: Performed By: #### B MP #### [facility] [address] [address] [address] Narendra Franks EGFR-NON AF WELSH >60 Normal >=60 [facility] Comment on above: Performed By: #### B MP #### [facility] [address] [address] [address] Narendra Franks Glucose [Mass/Vol] 90 mg/dL Normal 74-106 [facility] Comment on above: Performed By: #### B MP #### [facility] [address] [address] [address] Narendra Franks Potassium [Moles/Vol] 3.8 mmol/L Normal 3.5-5.1 [facility] Comment on above: Performed By: #### B MP #### [facility] [address] [place] [address] Dr. Narendra Franks Sodium [Moles/Vol] 138 mmol/L Normal 136-145 [facility] Comment on above: Performed By: #### B MP #### [facility] [address] [address] [address] Narendra Franks Urea nitrogen [Mass/Vol] 15.0 mg/dL Normal 7.0-18.0 [facility] Comment on above: Performed By: #### B MP #### [facility] [address] [place] [address] Dr. Narendra Franks Urea nitrogen/Creatinine [Mass ratio] 19.5 mg/mg Normal [facility] Comment on above: Performed By: #### B MP #### [facility] [address] [address] [address] [facility]rendra Fr[facility] SED RATE 25 mm/hr Critically high <=20 [facility] Comment on above: Performed By: #### S EDR #### [facility] [address] [place], [place] [address] Dr. Narendra Franks CYNTHIA WITH REFLEX TO ENAon CYNTHIA WITH REFLEX TO ANYI Negative Normal NEGATIVE [facility] Comment on above: Performed By: #### A NA #### [facility] [address] [place] [address] C-REACTIVE PROTEINon 019 CRP [Mass/Vol] mg/L Normal [facility] Comment on above: Result Comment: REF VALUE < 1.00 Performed By: #### C RP #### [facility] [address] [place] [address] CITRULLINE ANTIBODYon 2018 CITRULLINE ANTIBODY <1 Normal [...] U/ML Performed By: #### C ITAB #### [facility] [address] [place] [address] HLA-B27 TYPINGon 04-29-2019 HLA-B27 TYPING Negative Normal [facility] Comment on above: Result Comment: This test was developed without FDA review. The test performance characteristics were defined and validated by the [facility] Department of Pathology, under the accreditation guidelines of [facility]. Performed By: #### H LB27 #### [facility] [address] [place] [address] RHEUMATOID FACTORon 04-29-20 19 RHEUMATOID FACTOR <10 Normal 0 - 15 [facility] Comment on above: Performed By: #### R F #### [facility] [address] [place] [address] SEDIMENTATION RATE, ERYTHROC YTEon 04-29-2019 SEDIMENTATION RATE, ERYTHROCYTE 2 mm/h Normal 0 - 20 [facility] Comment on above: Performed By: #### E SRWS #### [facility] [address] [place] [address] Vital Signs Date Time Vital Sign Value Performing Clinician Facility 10-20-2024 15:33-0500 Diastolic blood pressure 78 mm[Hg] [facility] 10-20-2024 15:33-0500 Heart rate 91 /min [facility] 10-20-2024 15:33-0500 Systolic blood pressure 143 mm[Hg] [facility] 10-20-2024 15:31-0500 Body height 170.2 cm [facility] 10-20-2024 15:31-0500 Body mass index (BMI) [Ratio] 33.14 kg/m2 Sam [facility] MD [facility] 10-20-2024 15:31-0500 Body weight 95.98 kg Sam [facility] 07-14-2024 10:09-0400 Diastolic blood pressure 108 mm[Hg] [facility] 07-14-2024 10:09-0400 Heart rate 83 /min Sam [facility] 07-14-2024 10:09-0400 Systolic blood pressure 140 mm[Hg] [facility] 07-14-2024 10:06-0400 Body height 170.2 cm Sam [facility] MD [facility] 07-14-2024 10:06-0400 Body mass index (BMI) [Ratio] 32.69 kg/m2 Sam Caro MD Work Phone: [facility] 07-14-2024 10:06-0400 Body weight 94.67 kg Sam Caro MD Work Phone: [facility] 07-05-2024 11:10-0400 Body mass index (BMI) [Ratio] 32.58 kg/m2 Sharon Johnson PA Work Phone: [facility] 07-05-2024 11:10-0400 Body weight 94.35 kg Sharon Sanaz PA Work Phone: [facility] 07-05-2024 11:10-0400 Diastolic blood pressure 78 mm[Hg] Sharon Savery PA Work Phone: [facility] 07-05-2024 11:10-0400 Systolic blood pressure 124 mm[Hg] Sharon Johnson PA Work Phone: [facility] 06-06-2023 09:05-0400 Body height 170.18 cm Valeria Claros Other [facility] Other 06-06-2023 09:05-0400 Body mass index (BMI) [Ratio] 29.19 kg/m2 Valeria Claros Other [facility] Other 06-06-2023 09:05-0400 Body temperature 98.5 [degF] Valeria Claros Other [facility] Other 06-06-2023 09:05-0400 Body weight 84.55 kg Valeria Claros Other [facility] Other 06-06-2023 09:05-0400 Diastolic blood pressure 96 mm[Hg] Valeria Claros Other [facility] Other 06-06-2023 09:05-0400 Respiratory rate 18 /min Valeria Claros Other [facility] Other 06-06-2023 09:05-0400 SaO2% (BldA) [Mass fraction] 98 % Valeria Claros Other [facility] Other 06-06-2023 09:05-0400 Systolic blood pressure 140 mm[Hg] Valeria Claros Other [facility] Other Encounters Encounter Date Encounter Type Care Provider Facility Start: 10-20-2024 End: 10-20-2024 Office outpatient visit 25 minutes Sam Caro MD Work Phone: [facility] Comment on above: Autosomal dominant p olycystic kidney disease (Primary Dx) Start: 10-19-2024 End: 10-19-2024 Telephone encounter [facility] Provider External N [facility] Start: 10-14-2024 End: 10-14-2024 Telephone encounter Huma Tena [facility] Start: 10-11-2024 End: 10-11[facility] Start: 07-19-2024 End: 07-19-2024 ambulatory SAM [facility] Start: 07-14-2024 End: 07-14-2024 Office outpatient new 45 minutes Sam Caro MD Work Phone: [facility] Comment on above: Autosomal dominant p olycystic kidney disease (Primary Dx); PKD (polycystic kidney disease) Start: 07-13-2024 End: 07-13-2024 [facility] Start: 07-06-2024 End: 07-12-2024 Telephone encounter Huma Tena [facility] Start: 07-05-2024 End: 07-05-2024 Bamboo flowsheet Sharon STEVENS Work Phone: [facility] Start: 07-05-2024 End: 10-14-2024 Bamboo flowsheet Sharon STEVENS Work Phone: [facility] Start: 07-05-2024 End: 07-11-2024 Clinisync Result Encounter Sharon STEVENS Work Phone: [facility] Unsolicited Start: 07-05-2024 End: 07-05-2024 Patient encounter procedure Sharon STEVENS Work Phone: [facility] Start: 07-05-2024 End: 07-05-2024 Periodic preventive med est patient 18-39 yrs Sharon STEVENS Work Phone: [facility] Comment on above: Well woman exam with routine gynecological exam Start: 07-05-2024 End: 07-05-2024 ambulatory SHARON SANAZ Not Available Start: 05-17-2024 End: 05-17-2024 ambulatory SHARON SANAZ Not Available Start: 04-11-2024 End: 04-11-2024 ambulatory ROBBIN EFREN Not Available Start: 04-04-2024 End: 04-04-2024 ambulatory ROBBIN EFREN Not Available Start: 03-29-2024 End: 03-29-2024 ambulatory ROBBIN EFREN Not Available Start: 03-15-2024 End: 03-15-2024 ambulatory ROBBIN EFREN Not Available Start: 03-01-2024 End: 03-01-2024 ambulatory SHARON SANAZ Not Available Start: 02-16-2024 End: 02-16-2024 ambulatory ROBBIN EFREN Not Available Start: 02-02-2024 End: 02-02-2024 ambulatory SHARON SANAZ Not Available Start: 01-13-2024 End: 01-13-2024 ambulatory ROBBIN EFREN Not Available Start: 12-16-2023 End: 12-16-2023 ambulatory SHARON SANAZ Not Available Start: 11-18-2023 End: 11-18-2023 ambulatory ROBBIN EFREN Not Available Start: 10-21-2023 End: 10-21-2023 ambulatory ROBBIN EFREN Not Available Start: 09-18-2023 End: 09-18-2023 ambulatory ROBBIN EFREN Not Available Start: 09-14-2023 End: 09-14-2023 ambulatory ADELAIDE H TIMMIS Not Available Start: 09-09-2023 End: 09-09-2023 ambulatory ROMINA NELSON Not Available Start: 06-06-2023 End: 06-06-2023 ambulatory Valeria Claros Other [facility] Other Start: 06-06-2023 Office outpatient ne w 20 minutes Valeria Claros [facility] Start: 12-17-2022 End: 12-17-[address] ROBBIN SCHWARTZ . Facility: Start: 06-26-2022 End: 06-27-2022 ambulatory NONE LISTED REQUEST Facility: Procedures Date Procedure Procedure Detail Performing Clinician Start: 07-05-2024 IGP,APTIMA HPV,AGE GDLN Sharon STEVENS Work Phone: Start: 07-05-2024 Microscopic observat ion [Identifier] in Cervix by Cyto stain Sam Crao MD Work Phone: Plan of Treatment Date Care Activity Detail Author Start: 08-06-2031 DTaP,Tdap and Td Vaccines (2 - Tdap) DTaP,Tdap and Td Vaccines (2 - Tdap) [facility] Start: 07-05-2027 Screening for malign ant neoplasm of cervix Pap [facility]ear [facility] Start: 07-14-2025 Adult BMI Screening Adult BMI Screen ing [facility] Start: 04-14-2025 End: 10-15-2025 Basic metabolic 2000 panel - Serum or Plasma Basic Metabolic Panel Lab Routine Autosomal dominant polycystic kidney disease Expected: 04/14/2025 (Approximate), Expires: 10/15/2025 [facility] Work Phone: Comment on above: Expected: 04/14/2025 (Approximate), Expires: 10/15/2025 Start: 04-14-2025 End: 10-15-2025 CBC panel - Blood by Automated count CBC without diff Lab Routine Autosomal dominant polycystic kidney disease Expected: 04/14/2025 (Approximate), Expires: 10/15/2025 [facility] Comment on above: Expected: 04/14/2025 (Approximate), Expires: 10/15/2025 Start: 04-14-2025 End: 10-15-2025 Magnesium [Mass/volume] in Serum or Plasma Magnesium Lab Routine Autosomal dominant polycystic kidney disease Expected: 04/14/2025 (Approximate), Expires: 10/15/2025 [facility] Comment on above: Expected: 04/14/2025 (Approximate), Expires: 10/15/2025 Start: 04-14-2025 End: 10-15-2025 Parathyroid Hormone, intact Parathyroid Hormone, intact Lab Routine Autosomal dominant polycystic kidney disease Expected: 04/14/2025 (Approximate), Expires: 10/15/2025 [facility] Comment on above: Expected: 04/14/2025 (Approximate), Expires: 10/15/2025 Start: 04-14-2025 End: 10-15-2025 Phosphate [Mass/volume] in Serum or Plasma Phosphorus Lab Routine Autosomal dominant polycystic kidney disease Expected: 04/14/2025 (Approximate), Expires: 10/15/2025 [facility] Comment on above: Expected: 04/14/2025 (Approximate), Expires: 10/15/2025 Start: 04-14-2025 End: 10-15-2025 Protein creat ratio Protein creat ratio Lab Routine Autosomal dominant polycystic kidney disease Expected: 04/14/2025 (Approximate), Expires: 10/15/2025 [facility] [employer] Comment on above: Expected: 04/14/2025 (Approximate), Expires: 10/15/2025 Start: 04-14-2025 End: 10-15-2025 Vitamin D 25 hydroxy Vitamin D 25 hydroxy Lab Routine Autosomal dominant polycystic kidney disease Expected: 04/14/2025 (Approximate), Expires: 10/15/2025 [facility] Comment on above: Expected: 04/14/2025 (Approximate), Expires: 10/15/2025 Start: 10-20-2024 End: 10-20-2024 Patient encounter procedure 10/20/2024 3:30 PM EST Office Visit [facility] [address] [place] [address] Sam Caro MD [address] [place] [address] [place] [facility] Start: 09-08-2024 End: 07-09-2025 Basic metabolic 2000 panel - Serum or Plasma Basic Metabolic Panel Lab Routine Autosomal dominant polycystic kidney disease Expected: 09/08/2024, Expires: 07/09/2025 [facility] Comment on above: Expected: 09/08/2024 , Expires: 07/09/2025 Start: 09-08-2024 End: 07-09-2025 CBC panel - Blood by Automated count CBC without diff Lab Routine Autosomal dominant polycystic kidney disease Expected: 09/08/2024, Expires: 07/09/2025 [facility] Comment on above: Expected: 09/08/2024 , Expires: 07/09/2025 Start: 09-08-2024 End: 07-09-2025 Magnesium [Mass/volume] in Serum or Plasma Magnesium Lab Routine Autosomal dominant polycystic kidney disease Expected: 09/08/2024, Expires: 07/09/2025 [facility] Comment on above: Expected: 09/08/2024 , Expires: 07/09/2025 Start: 09-08-2024 End: 07-09-2025 Parathyroid Hormone, intact Parathyroid Hormone, intact Lab Routine Autosomal dominant polycystic kidney disease Expected: 09/08/2024, Expires: 07/09/2025 [facility] Comment on above: Expected: 09/08/2024 , Expires: 07/09/2025 Start: 09-08-2024 End: 07-09-2025 Phosphate [Mass/volume] in Serum or Plasma Phosphorus Lab Routine Autosomal dominant polycystic kidney disease Expected: 09/08/2024, Expires: 07/09/2025 [facility] Comment on above: Expected: 09/08/2024 , Expires: 07/09/2025 Start: 09-08-2024 End: 07-09-2025 Protein creat ratio Protein creat ratio Lab Routine Autosomal dominant polycystic kidney disease Expected: 09/08/2024, Expires: 07/09/2025 [facility] Comment on above: Expected: 09/08/2024 , Expires: 07/09/2025 Start: 09-08-2024 End: 07-09-2025 Vitamin D 25 hydroxy Vitamin D 25 hydroxy Lab Routine Autosomal dominant polycystic kidney disease Expected: 09/08/2024, Expires: 07/09/2025 [facility] Comment on above: Expected: 09/08/2024 , Expires: 07/09/2025 Start: 07-21-2024 End: 07-14-2025 MRA Abdominal vessels WO contrast MRA abdomen without contrast Imaging Routine Autosomal dominant polycystic kidney disease Expected: 07/21/2024 (Approximate), Expires: 07/14/2025 [facility] Comment on above: Expected: 07/21/2024 (Approximate), Expires: 07/14/2025 Start: 07-16-2024 End: 07-09-2025 CYNTHIA Screen w/ Reflex CYNTHIA Screen w/ Reflex Lab Routine Autosomal dominant polycystic kidney disease Expected: 07/16/2024 (Approximate), Expires: 07/09/2025 [facility] Comment on above: Expected: 07/16/2024 (Approximate), Expires: 07/09/2025 Start: 07-16-2024 End: 07-09-2025 Free light chains Free light chains Lab Routine Autosomal dominant polycystic kidney disease Expected: 07/16/2024 (Approximate), Expires: 07/09/2025 [facility] Comment on above: Expected: 07/16/2024 (Approximate), Expires: 07/09/2025 Start: 07-16-2024 End: 07-09-2025 Glomerular basement membrane IgG AB Glomerular basement membrane IgG AB Lab Routine Autosomal dominant polycystic kidney disease Expected: 07/16/2024 (Approximate), Expires: 07/09/2025 [facility] Comment on above: Expected: 07/16/2024 (Approximate), Expires: 07/09/2025 Start: 07-16-2024 End: 07-09-2025 Hepatitis B core antibody, total Hepatitis B core antibody, total Lab Routine Autosomal dominant polycystic kidney disease Expected: 07/16/2024 (Approximate), Expires: 07/09/2025 [facility] Comment on above: Expected: 07/16/2024 (Approximate), Expires: 07/09/2025 Start: 07-16-2024 End: 07-09-2025 Hepatitis B Surface Antibody Quantitation Hepatitis B Surface Antibody Quantitation Lab Routine Autosomal dominant polycystic kidney disease Expected: 07/16/2024 (Approximate), Expires: 07/09/2025 [facility] Comment on above: Expected: 07/16/2024 (Approximate), Expires: 07/09/2025 Start: 07-16-2024 End: 07-09-2025 Hepatitis B surface antigen Hepatitis B surface antigen Lab Routine Autosomal dominant polycystic kidney disease Expected: 07/16/2024 (Approximate), Expires: 07/09/2025 [facility] Comment on above: Expected: 07/16/2024 (Approximate), Expires: 07/09/2025 Start: 07-16-2024 End: 07-09-2025 Hepatitis C(HCV) Ab w/ Reflex to PCR Hepatitis C(HCV) Ab w/ Reflex to PCR Lab Routine Autosomal dominant polycystic kidney disease Expected: 07/16/2024 (Approximate), Expires: 07/09/2025 [facility] Comment on above: Expected: 07/16/2024 (Approximate), Expires: 07/09/2025 Start: 07-16-2024 End: 07-09-2025 HIV 1&2 AB/AG Screen (P24 AG) HIV 1&2 AB/AG Screen (P24 AG) Lab Routine Autosomal dominant polycystic kidney disease Expected: 07/16/2024 (Approximate), Expires: 07/09/2025 [facility] Comment on above: Expected: 07/16/2024 (Approximate), Expires: 07/09/2025 Start: 07-16-2024 End: 07-09-2025 Myeloperoxidase AB Myeloperoxidase AB Lab Routine Autosomal dominant polycystic kidney disease Expected: 07/16/2024 (Approximate), Expires: 07/09/2025 [facility] Comment on above: Expected: 07/16/2024 (Approximate), Expires: 07/09/2025 Start: 07-16-2024 End: 07-09-2025 Proteinase 3 AB PR3 Proteinase 3 AB PR3 Lab Routine Autosomal dominant polycystic kidney disease Expected: 07/16/2024 (Approximate), Expires: 07/09/2025 [facility] Comment on above: Expected: 07/16/2024 (Approximate), Expires: 07/09/2025 Start: 07-16-2024 End: 09-08-2024 US Retroperitoneum Ultrasound retroperitoneal complete Imaging Routine Autosomal dominant polycystic kidney disease Expected: 07/16/2024 (Approximate), Expires: 09/08/2024 [facility] Work Phone: Comment on above: Expected: 07/16/2024 (Approximate), Expires: 09/08/2024 Start: 07-14-2024 End: 07-14-2024 Patient encounter procedure 07/14/2024 10:00 AM EDT Office Visit N [facility] [address] [place] [id number] Sam Caro MD [address] [place] [address] [facility] Start: 07-05-2024 End: 07-05-2024 Patient encounter procedure 07/05/2024 11:00 AM EDT Office Visit [facility] [address] [place] [address] Sharon Johnson PA [address] [place], [place] [id number] Arrived [facility] Comment on above: Arrived Start: 05-29-2024 Influenza vaccination Influenza Vacc ine [facility] Start: 2017 Screening for malign ant neoplasm of cervix Pap Smear [facility] Start: 2015 DTaP,Tdap and Td Vaccines (1 - Tdap) DTaP,Tdap and Td Vaccines (1 - Tdap) [facility] Start: 2014 Adult BMI Follow Up Plan Adult BMI F ollow Up Plan [facility] Start: 2014 Adult BMI Screening Adult BMI Screen ing [facility] Start: 2008 Depression Screening Depression Scre ening [facility] Start: 2008 Tobacco Screening Tobacco Screening [facility] Cytology Cervical or vaginal smear or scraping study Pap Smear Pathology and Cytology Routine Well woman exam with routine gynecological exam Ordered: 07/05/2024 [facility] Work Phone: Comment on above: Ordered: 07/05/2024 End: 07-09-2025 Cytoplasmic Neutrophilic Ab, S Cytoplasmic Neutrophilic Ab, S Lab Routine Autosomal dominant polycystic kidney disease 1 Occurrences starting 07/14/2024 until 07/09/2025 [facility] Comment on above: 1 Occurrences starti ng 07/14/2024 until 07/09/2025 End: 07-09-2025 Serum Immunofixation Serum Immunofixation Lab Routine Autosomal dominant polycystic kidney disease 1 Occurrences starting 07/14/2024 until 07/09/2025 [facility] Comment on above: 1 Occurrences starti ng 07/14/2024 until 07/09/2025 End: 07-09-2025 Urinalysis Urinalysis Lab Routine Autosomal dominant polycystic kidney disease 1 Occurrences starting 07/14/2024 until 07/09/2025 [facility] Comment on above: 1 Occurrences starti ng 07/14/2024 until 07/09/2025 End: 10-15-2025 Urinalysis Urinalysis Lab Routine Autosomal dominant polycystic kidney disease 1 Occurrences starting 10/20/2024 until 10/15/2025 [facility] Comment on above: 1 Occurrences starti ng 10/20/2024 until 10/15/2025 Immunizations Immunization Date Immunization Notes Care Provider [facility] 08-19-2019 influenza virus vaccine, unspecified formulation Sam Caro MD Work Phone: [facility] Payers Date Payer Category Payer Private Health Insurance [employer] [id number] 2024 Private Health Insurance [id number] 2023 [facility] Managed Care - Other [facility] [id number] 2022 [facility] [id number] 2022 Unknown [id number] .[id number] 1996 Unknown [id number] 2.16.840.1.280831.3.579 .2.593 1996 Unknown [id number] 2.16.840.1.581769.3.579 .2.593 1996 Unknown [id number] 2.16.840.1.455535.3.579 .2.1258 1996 Unknown [id number] 2.16.840.1.740770.3.579 .2.1258 1996 Unknown [id number] 2.16.840.1.696256.3.579 .2.1258 1996 Unknown [id number] 2.16.840.1.658289.3.579 .2.1258 1996 Unknown [id number] 2.16.840.1.506199.3.579 .2.1258 1996 Unknown [id number] 2.16.840.1.635330.3.579 .2.1258 1996 Unknown [id number] 2.16840.1.274960.3.579 .2.1258 1996 Unknown [id number] 2.16.840.1.751834.3.579 .2.1258 1996 Unknown [id number] 2.16.840.1.511549.3.579 .2.1258 1996 Unknown [id number] 2.16.840.1.507906.3.579 .2.1258 1996 Unknown [id number] 2.16.840.1.623469.3.579 .2.1258 1996 Unknown [id number] 2.16.840.1.910691.3.579 .2.1258 1996 Unknown [id number] 2.16.840.1.013019.3.579 .2.1258 1996 Unknown [id number] 2.16.840.1.580016.3.579 .2.1258 1996 Unknown [id number] 2.16.840.1.872175.3.579 .2.1258 1996 Unknown [id number] 2.16.840.1.082439.3.579 .2.1259 1996 Unknown [id number] 2.16.840.1.569823.3.579 .2.1286 1996 Unknown [id number] 2.16.840.1.371746.3.579 .2.1286 1996 Unknown [id number] 2.16.840.1.490870.3.579 .2.1286 1959 Unknown [id number] Social History Date Type Detail Facility Unknown if ever smoked [facility] Other Start: 09-14-2023 End: 07-05-2024 Sex Assigned At [facility] Other Start: 09-09-2023 Tobacco smoking status VTIS Never smoked tobacco [facility] Start: 09-09-2023 Tobacco use and exposure Smokeless tobacco non-user [facility] Start: 05-17-2024 End: 07-05-2024 Alcoholic beverage intake Ex-drinker (finding) [facility] Start: 09-14-2023 End: 07-05-2024 History of Social function [facility] Start: 09-14-2023 Alcohol Comment Only on specia l occasions [facility] Start: 1996 Sex assigned at Not on file [facility] Tobacco smoking status [facility] Tobacco smoking consumption unknown [facility] Start: 04-13-2024 Sex Female (finding) [facility] Clinical Notes 06-06-2023 to 10-20-2024 Sam Caro MD - 10/20/2024 3:30 PM ESTTelephone Encounter - Eav Moura - 10/19/2024 11:48 AM ESTTelephone Encounter - Eva Moura - 10/19/2024 11:48 AM EST Note Date & Type Note Facility 10-20-2024 History of Presen t illness Narrative Images from the original note were not included. Date of Service: 10/20/24 PCP: LYLY SADLER MD History of Present Illness Aaliyah Carvalho is a 29 y.o. female, who is following with us for autosomal dominant polycystic kidney disease. When last seen in June of 2024 the BUN is 18 creatinine 0.83 urinalysis showed trace protein on dipstick exam. The urine protein creatinine ratio was 0.09 g per g. In June 2024 we added Procardia XL 60 mg daily for blood pressure control. An MRI of the kidneys was ordered to evaluate total kidney volume to assess her candidacy for tolvaptan to delay the progression of her polycystic kidney disease. A renal ultrasound showed the right kidney measured 15.5 and the left kidney 14.2 cm in bipolar dimension. There were numerous variable size cysts in both kidneys consistent with polycystic kidney disease. There were numerous calcifications in both kidney without evidence of hydronephrosis. Laboratories of 10/11/2024 show BUN of 12 creatinine 0.77 EGFR greater than 90. Urine protein creatinine ratio was 0.04 gram/gram. A urinalysis showed negative protein on dipstick exam with 2 red blood cell and 1 white blood cells per high-power field. As you know she is a very active mother of 2 children. There was no report of abdominal pain, gross hematuria, urinary tract infection, or lower extremity edema. 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 Problem List Stage I chronic kidney disease due to Autosomal dominant Polycystic kidney disease : In September of 2024 an CYNTHIA screen was negative. HIV serologies were negative. Anti myeloperoxidase and anti proteinase 3 antibody titers were negative. Hepatitis serologies were negative. Free light chain ratio was 1.32. Gastroesophageal reflux disease Hypertension Obstructive sleep apnea Anxiety Insomnia History of preeclampsia with both of her children. She delivered a healthy boy by March 31, 2024. Surgical, Family & Social History Surgical History: No past surgical history on file. Social History: Social History Socioeconomic History Marital status: Spouse name: Not on file Number of children: Not on file Years of education: Not on file Highest education level: Not on file Occupational History Not on file Tobacco Use Smoking status: Not on file Smokeless tobacco: Not on file Substance and Sexual Activity Alcohol use: Not on file Drug use: Not on file Sexual activity: Not on file Other Topics Concern Not on file Social History Narrative Not on file Social Drivers of Health Financial Resource Strain: Not on file Food Insecurity: Not on file Transportation Needs: Not on file Physical Activity: Not on file Stress: Not on file Social Connections: Not on file Interpersonal Safety: Not on file Housing Instability: Not on file Family History: No family history on file. Allergies & Medications Allergies: Allergies Allergen Reactions Raspberry Itching Current Meds: Current Outpatient Medications Medication Sig Dispense Refill NIFEdipine XL (PROCARDIA XL) 60 mg 24 hr tablet Take 1 tablet (60 mg total) by mouth in the morning. 90 tablet 3 No current facility-administered medications for this visit. Review of Systems Review of Systems Physical Exam Vital Signs: Vitals: 10/20/24 1531 10/20/24 1533 BP: 137/90 143/78 BP Site: Left Arm Left Arm BP Postition: Sitting Standing BP CUFF SIZE: M (9-13 inches) M (9-13 inches) Pulse: 72 91 Weight: 96 kg (211 lb 9.6 oz) Height: 170.2 cm (5' 7 ) BMI: Body mass index is 33.14 kg/m . General appearance: alert in no apparent distress. Psychiatric: Oriented to place, time and person HEENT: atraumatic, supple, moist oral mucosa, no JVD Cardiovascular: normal S1-S2 Respiratory: No respiratory distress with no use of accessory muscles. Clear to auscultation bilaterally with no wheezes or crackles Abdomen: soft, no tenderness, no guarding, positive bowel sounds and no hepato or splenomegaly Vascular: adequate pulses and no carotid bruits. Musculoskeletal: no joint swelling or tenderness. Neurologic: No focal deficit in upper or lower extremities Lymphatic: no cervical or axillary lymphadenopathy. Edema: Laboratory Studies Chemistry: Lab Results Component Value Date SODIUM 143 10/11/2024 SODIUM 142 07/13/2024 K 3.7 10/11/2024 K 4.2 07/13/2024 CL 107 10/11/2024 CL 107 07/13/2024 CO2 28 10/11/2024 CO2 26 07/13/2024 ANIONGAP 8 10/11/2024 ANIONGAP 9 07/13/2024 BUN 12 10/11/2024 BUN 18 07/13/2024 CREATININE 0.77 10/11/2024 CREATININE 0.83 07/13/2024 EGFR >90 10/11/2024 EGFR >90 07/13/2024 CALCIUM 9.4 10/11/2024 CALCIUM 9.2 07/13/2024 MG 1.7 (L) 10/11/2024 MG 1.8 07/13/2024 PHOSPHORUS 4.0 10/11/2024 PHOSPHORUS 3.7 07/13/2024 Lab Results Component Value Date BILIRUBIN Negative 10/11/2024 BILIRUBIN Negative 07/13/2024 Hematology: Lab Results Component Value Date WBC 5.5 10/11/2024 WBC 5.1 07/13/2024 HGB 13.3 10/11/2024 HGB 14.4 07/13/2024 HCT 38.9 10/11/2024 HCT 42.6 07/13/2024 PLT 268 10/11/2024 PLT 269 07/13/2024 Anemia Studies: No results found for: IRONSAT , FERRITIN , [id number] , FOLATE Mineral and Bone Labs: Lab Results Component Value Date CALCIUM 9.4 10/11/2024 CALCIUM 9.2 07/13/2024 PHOSPHORUS 4.0 10/11/2024 PHOSPHORUS 3.7 07/13/2024 VITD25 18.5 (L) 10/11/2024 PTH 27 10/11/2024 Urine Studies: Lab Results Component Value Date COLOR ORANGE (A) 10/11/2024 TURBIDITY CLOUDY (A) 10/11/2024 SPECIFICGRA 1.024 10/11/2024 NITRITE Negative 10/11/2024 PHURINE 5.5 10/11/2024 LEUKOCYTE Negative 10/11/2024 PROTEIN Negative 10/11/2024 KETONES Negative 10/11/2024 UROBILINOGEN <1.1 10/11/2024 BLOODHGB Negative 10/11/2024 Lab Results Component Value Date UPROCRTRAT 0.04 10/11/2024 UPROCRTRAT 0.09 07/13/2024 Immunology Profile Lab Results Component Value Date ANASCREEN Negative 10/11/2024 MYELOP <0.2 10/11/2024 PROTEINASE3 <0.2 10/11/2024 ANTIGLOMERU <0.2 10/11/2024 Lab Results Component Value Date HEPBCAB Non-Reactive 10/11/2024 Imaging Echocardiogram: No results found. IMPRESSION 1. Autosomal dominant polycystic kidney disease, type 1. Will proceed with MR I imaging of the kidneys to determine height adjusted total kidney volume. Height corrected total kidney volume is used to evaluate the risk of progression and the need for disease modifying treatment ( e.g. tolvaptan ) 2. Hypertension:BP is still suboptimally controlled. Goal SBP < or equal to 110 mm Hg. Will increase Procardia XL to 90 mg daily. PLAN 1.MRI of the kidneys without contrast to determine height adjusted total kidney volume so as to stratify her risk of progression and the need for disease modifying treatment (Tolvaptan). 2. Target systolic blood pressure to less than 110/75 or less. We would usually use an REID inhibitor angiotensin receptor narseh as first-line therapy. These agents should not be used in patients who are trying to become or who are . I have elected not to started Erid inhibitor in this young woman. 3. Target sodium intake to 2 g per day or less 4. Increase fluid intake so as to achieve 3 L of urine output a day or more. It is felt that high fluid intake suppresses anti-diuretic hormone. Anti-diuretic hormone can promote cyst growth. 5. Target systolic blood pressure to less than 110 mmHg a day. We will increase her Procardia XL to 90 mg daily. 6.Return in 6 months for repeat evlauation. We will review the results of her MRI of the kidneys then to assess her candidacy for tolvaptan therapy. Thank you LYLY SADLER MD for the opportunity to participate in the care of your patients! Please contact me at [phone] (Office) or [phone] (Answering service) with any questions. SAM CARO MD [facility] This note was created with the assistance of a speech-recognition program. Although the intention is to generate a document that actually reflects the content of the visit, no guarantees can be provided that every mistake has been identified and corrected by editing. SAM CARO MD,PhD FACP [facility] ANY QUESTIONS FEEL FREE TO CALL: 1. OFFICE [phone] 2. ANSWERING SERVICE: [phone] documented in this encounter [facility] 10-19-2024 Miscellaneous Notes Formattin g of this note might be different from the original. LM to see if pt could come in at 8:30 am tomorrow instead of 3:30 pm. documented in this encounter [facility] 10-19-2024 Telephone encount er Note LM to see if pt could come in at 8:30 am tomorrow instead of 3:30 pm. [facility] 10-14-2024 Miscellaneous Notes Formattin g of this note might be different from the original. Left message for patient to call the office back to confirm upcoming appointment 10/20 at 3:[address] Caro in [place] documented in this encounter [facility] 10-14-2024 Telephone encount er Note Left message for patient to call the office back to confirm upcoming appointment 10/20 at 3:[address] Caro in [place] [facility] 07-14-2024 History of Presen t illness Narrative Images from the original note were not included. PCP: LYLY SADLER MD Date of Service: 07/14/24 Reason for Referral: Autosomal dominant polycystic kidney disease Referring Physician: Lyly Sadler MD History of Present Illness Aaliyah Carvalho is a 28 y.o. female, who was referred to us by Dr. Lyly Sadler for the evaluation of autosomal dominant polycystic kidney disease. The patient's mother has polycystic kidney disease and is a patient of our practice. She was diagnosed with ADPKD at age 18. At one time was followed by Dr. Holder until 2019 when she lost her health insurance. Her entire family has been transplanted or are on the transplant list. She delivered a healthy boy by C section 03/31/2024. She had preeclampsia with both of her children. There is no history of gross hematuria, recurrent urinary tract infections, nephrolithiasis, flank pain or headaches. The patient had hypertension and had been on labetalol but discontinued this medication due to side effects. Her blood pressures at home are routinely 130-140 mmHg systolic and 100 mmHg diastolic Problem List Polycystic kidney disease Gastroesophageal reflux disease Hypertension Obstructive sleep apnea Anxiety Insomnia Surgical, Family & Social History Surgical History: No past surgical history on file. Social History: Social History Socioeconomic History Marital status: Spouse name: Not on file Number of children: Not on file Years of education: Not on file Highest education level: Not on file Occupational History Not on file Tobacco Use Smoking status: Not on file Smokeless tobacco: Not on file Substance and Sexual Activity Alcohol use: Not on file Drug use: Not on file Sexual activity: Not on file Other Topics Concern Not on file Social History Narrative Not on file Social Drivers of Health Financial Resource Strain: Not on file Food Insecurity: Not on file Transportation Needs: Not on file Physical Activity: Not on file Stress: Not on file Social Connections: Not on file Interpersonal Safety: Not on file Housing Instability: Not on file Family History: No family history on file. Allergies & Medications Allergies: Allergies Allergen Reactions Raspberry Itching Current Meds: No current outpatient medications on file. No current facility-administered medications for this visit. Review of Systems Review of Systems Constitutional: Negative for chills, diaphoresis, fatigue and fever. HENT: Negative for congestion, ear discharge, ear pain, facial swelling and hearing loss. Eyes: Negative for pain, discharge, redness and itching. Respiratory: Negative for cough, shortness of breath and wheezing. Cardiovascular: Negative for chest pain, palpitations and leg swelling. Gastrointestinal: Negative for abdominal pain, constipation, diarrhea, nausea and vomiting. Endocrine: Negative for polydipsia, polyphagia and polyuria. Genitourinary: Positive for flank pain. Negative for decreased urine volume, difficulty urinating, dysuria, enuresis, frequency, hematuria and urgency. Musculoskeletal: Negative for arthralgias, joint swelling and myalgias. Skin: Negative for rash and wound. Neurological: Negative for dizziness, tremors, weakness, light-headedness and numbness. Hematological: Negative for adenopathy. Bruises/bleeds easily. Physical Exam Vital Signs: Vitals: 07/14/24 1006 07/14/24 1009 BP: (!) 142/103 (!) 140/108 BP Site: Left Arm Left Arm BP Postition: Sitting Standing BP CUFF SIZE: M (9-13 inches) M (9-13 inches) Pulse: 72 83 Weight: 94.7 kg (208 lb 11.2 oz) Height: 170.2 cm (5' 7 ) BMI: Body mass index is 32.69 kg/m . General appearance: alert in no apparent distress. Psychiatric: Oriented to place, time and person HEENT: atraumatic, supple, moist oral mucosa, no JVD Cardiovascular: normal S1-S2, no edema Respiratory: No respiratory distress with no use of accessory muscles. Clear to auscultation bilaterally with no wheezes or crackles Abdomen: soft, no tenderness, no guarding, positive bowel sounds and no hepato or splenomegaly no tenderness to exam the kidneys were not easily palpable Vascular: adequate pulses and no carotid bruits. Musculoskeletal: no joint swelling or tenderness. Neurologic: No focal deficit in upper or lower extremities Lymphatic: no cervical or axillary lymphadenopathy. Extremities: No lower extremity edema Laboratory Studies Chemistry: Lab Results Component Value Date SODIUM 142 07/13/2024 K 4.2 07/13/2024 CL 107 07/13/2024 CO2 26 07/13/2024 ANIONGAP 9 07/13/2024 BUN 18 07/13/2024 CREATININE 0.83 07/13/2024 EGFR >90 07/13/2024 CALCIUM 9.2 07/13/2024 MG 1.8 07/13/2024 PHOSPHORUS 3.7 07/13/2024 Lab Results Component Value Date BILIRUBIN Negative 07/13/2024 Hematology: Lab Results Component Value Date WBC 5.1 07/13/2024 HGB 14.4 07/13/2024 HCT 42.6 07/13/2024 PLT 269 07/13/2024 Anemia Studies: No results found for: IRONSAT , FERRITIN , [id number] , FOLATE Mineral and Bone Labs: Lab Results Component Value Date CALCIUM 9.2 07/13/2024 PHOSPHORUS 3.7 07/13/2024 Urine Studies: Lab Results Component Value Date COLOR YELLOW 07/13/2024 TURBIDITY CLEAR 07/13/2024 SPECIFICGRA 1.025 07/13/2024 NITRITE Negative 07/13/2024 PHURINE 5.5 07/13/2024 LEUKOCYTE Negative 07/13/2024 PROTEIN Trace (A) 07/13/2024 KETONES Negative 07/13/2024 UROBILINOGEN <1.1 07/13/2024 BLOODHGB Negative 07/13/2024 Lab Results Component Value Date UPROCRTRAT 0.09 07/13/2024 Immunology Profile No results found for: PROTELECTR , SEDRATE , CRP , RF , ANASCREEN , ANTIDSDNA , C3 , C4 , ANCA , MYELOP , PROTEINASE3 , ANTIGLOMERU No results found for: HAV , HEPAIGM , HEPBIGM , HEPBCAB , HBEAG , HEPCAB Imaging Echocardiogram: No results found. IMPRESSION 1. Autosomal dominant polycystic kidney disease, type 1. Will proceed with MR I imaging of the kidneys to determine height adjusted total kidney volume. Height corrected total kidney volume is used to evaluate the risk of progression and the need for disease modifying treatment ( e.g. tolvaptan ) 2. Hypertension: Poorly controlled PLAN 1.MRA of the kidneys without contrast to determine height adjusted total kidney volume so as to stratify her risk of progression and the need for disease modifying treatment. 2. Target systolic blood pressure to less than 110/75 or less. We would usually use an REID inhibitor angiotensin receptor naresh as first-line therapy. These agents should not be used in patients who are trying to become or who are . 3. Target sodium intake to 2 g per day or less 4. Increase fluid intake so as to achieve 3 L of urine output a day or more. It is felt that high fluid intake suppresses anti-diuretic hormone. Anti-diuretic hormone can promote cyst growth. 5. She return to this office in 4-6 weeks time to review the results of her nephrologic investigations. Further recommendations will be forthcoming at that time. 6.Add Procardia XL 60 mg a day for BP control. Thank you LYLY SADLER MD for the referral and opportunity to participate in the care of your patients! Please contact me at [phone] (Office) or [phone] (Answering service) with any questions. SAM CARO MD [facility] This note was created with the assistance of a speech-recognition program. Although the intention is to generate a document that actually reflects the content of the visit, no guarantees can be provided that every mistake has been identified and corrected by editing. SAM CARO MD,PhD FACP [facility] ANY QUESTIONS FEEL FREE TO CALL: 1. OFFICE [phone] 2. ANSWERING SERVICE: [phone] documented in this encounter [facility] 07-06-2024 Miscellaneous Notes Formattin g of this note might be different from the original. Left voicemail for patient to return call to confirm upcoming appointment on 07/14 at 10:[address] Caro in [place] and Informed patient lab work need completed prior to uncoming appointment Pt called back and confirmed appt. Nephro- Delashi? ([facility] probably 5 or more years ago) Other Spec- No Echo- Severo possibly Abd Img- No Labs- Going to [facility] 07/13/24 Reminders- Given documented in this encounter [facility] 07-06-2024 Telephone encount er Note Left voicemail for patient to return call to confirm upcoming appointment on 07/14 at 10:[address] Caro in [place] and Informed patient lab work need completed prior to uncoming appointment [facility] 07-06-2024 Telephone encount er Note Pt called back and confirmed appt. Nephro- Delashi? ([facility] probably 5 or more years ago) Other Spec- No Echo- Severo possibly Abd Img- No Labs- Going to [facility] 07/13/24 Reminders- Given [facility] 07-05-2024 History of Presen t illness Narrative Reason for Appointment: Patient ID: Aaliyah Carvalho is a 28 y.o. female who presents for Gynecologic Exam Patient presents today for Annual Exam. MEDICATIONS Current Outpatient Medications Medication Instructions labetalol (Normodyne) 200 MG tablet 1 tablet, Oral, Once Loratadine (CLARITIN) 10 mg, Oral, Daily MV-Min-Fe Fum-FA-DHA ( 1 PO) Oral ALLERGIES Allergies Allergen Reactions Raspberry Itching PROBLEMS Active Ambulatory Problems Diagnosis Date Noted Bilateral lower extremity edema 09/09/2023 Congenital cystic kidney disease 09/09/2023 Dyspareunia in female 09/09/2023 Endometriosis 09/09/2023 Obesity 09/09/2023 Essential hypertension (CMS/HCC) 09/09/2023 Kidney disease 09/09/2023 Polycystic kidney disease 09/09/2023 GERD (gastroesophageal reflux disease) 09/09/2023 Chronic rhinitis 09/14/2023 ETD (Eustachian tube dysfunction), bilateral 09/14/2023 Resolved Ambulatory Problems Diagnosis Date Noted Acute bronchiolitis 09/09/2023 Past Medical History: Diagnosis Date Benign essential HTN (CMS/HCC) COVID-19 Depression screening Dizziness Ear problems 03/28/23 Headache 03/28/23 Insomnia Obesity (BMI 30-39.9) Other specified related conditions, unspecified trimester Ovarian cyst PCK (polycystic kidney disease) TMJ dysfunction Back in 2011 [facility] woman exam HISTORY PAST MEDICAL HISTORY SOCIAL HISTORY Past Medical History: Diagnosis Date Benign essential HTN (CMS/HCC) Bilateral lower extremity edema COVID-19 Depression screening Dizziness Ear problems 03/28/23 Endometriosis Headache 03/28/23 Insomnia Obesity (BMI 30-39.9) Other specified related conditions, unspecified trimester Ovarian cyst PCK (polycystic kidney disease) TMJ dysfunction Back in 2011 Well woman exam Social History Tobacco Use Smoking status: Never Smokeless tobacco: Never Substance Use Topics Alcohol use: Not Currently Alcohol/week: 1.0 - 3.0 standard drink of alcohol Types: 1 - 3 Standard drinks or equivalent per week Comment: Only on special occasions Drug use: Never FAMILY HISTORY Family History Problem Relation Name Age of Onset Rheum arthritis Mother Chuyita Salgado Hypertension Mother Chuyita Salgado Anemia Mother Chuyita Salgado Arrhythmia Mother Chuyita Salgado SURGICAL HISTORY Past Surgical History: Procedure Laterality Date ADENOIDECTOMY 2008 BACK SURGERY 2013 COLONOSCOPY 2018 with EGD COLPOSCOPY 2017 LAPAROSCOPY DIAGNOSTIC / BIOPSY / ASPIRATION / LYSIS 2018 OTHER SURGICAL HISTORY r/o fatty tumor from back TONSILLECTOMY 2011 Tonsillectomy/Adenoidectomy WISDOM TOOTH EXTRACTION wisdom teeth REVIEW OF SYSTEMS Review of Systems: Review of Systems Constitutional: Negative. HENT: Negative. Eyes: Negative. Respiratory: Negative. Cardiovascular: Negative. Gastrointestinal: Negative. Genitourinary: Negative. Musculoskeletal: Negative. Skin: Negative. Neurological: Negative. All other systems reviewed and are negative. Hematological: Negative. Endocrine: Negative. Allergic/Immunologic: Negative. OBJECTIVE Objective: Physical Exam Constitutional: Appearance: Normal appearance. She is well-developed. Genitourinary: Vulva normal. Right Adnexa: not tender and no mass present. Left Adnexa: not tender and no mass present. No cervical discharge. Breasts: Breasts are soft. Right: Normal. Left: Normal. HENT: Head: Normocephalic. Nose: Nose normal. Mouth/Throat: Mouth: Mucous membranes are moist. Cardiovascular: Rate and Rhythm: Normal rate and regular rhythm. Pulmonary: Effort: Pulmonary effort is normal. Breath sounds: Normal breath sounds. Abdominal: General: Bowel sounds are normal. There is no distension. Palpations: Abdomen is soft. Tenderness: There is no abdominal tenderness. There is no guarding or rebound. Musculoskeletal: General: No swelling. Normal range of motion. Cervical back: Normal range of motion. Right lower leg: No edema. Left lower leg: No edema. Neurological: General: No focal deficit present. Mental Status: She is alert and oriented to person, place, and time. Skin: General: Skin is warm and dry. Psychiatric: Mood and Affect: Mood normal. Behavior: Behavior normal. Vitals and nursing note reviewed. Exam conducted with a straightening machine operator present. Vitals: Estimated body mass index is 32.26 kg/m as calculated from the following: Height as of 05/17/24: 5' 7 . Weight as of 05/17/24: 206 lb. BP: No LMP recorded. ASSESSMENT & PLAN ICD-10-CM 1. Well woman exam with routine gynecological exam Z01.419 Pap Smear Annual Exam: Patient presents today for an annual exam. Patient states she is doing well and has no complaints. Pt does not desire any b/c at this time, will be having a vasectomy. Pt is currently still /pumping and has not had a period yet. Pap was obtained without difficulty. No orders of the defined types were placed in this encounter. Follow Up: Patient is to return in one year for annual unless needed otherwise. Documented by Kaye Glass MA on behalf of: HILDA Rebolledo documented in this encounter [facility] 06-06-2023 Evaluation note Encounter Date Diagnosis Assessment [...] understanding and is agreeable with treatment plan [facility] Other Evaluation note* Diagnosis Well woman exam with routine gynecological exam Routine gynecological examination [facility] Diagnosis Autosomal dominant polycystic kidney disease- Primary Congenital polycystic kidney, autosomal dominant PKD (polycystic kidney disease) Congenital polycystic kidney, unspecified type documented in this encounter [facility] SystemEvaluation note* Diagnosis Autosomal dominant polycystic kidney disease- Primary Congenital polycystic kidney, autosomal dominant [facility] this [facility] System[facility] general Narrative - Reported* Type Description Date Medical History polycystic kidneys Medical History Headache Medical History GERD Medical History HYPERTENSION Medical History ALLERGIC RHINITIS Medical History SLEEP APNEA Medical History endometriosis Medical History crohns borderline Surgical History tonsillectomy and adenoidectomy Surgical History fatty tumor removed off back Surgical History wisdom teeth extract Surgical History laparoscopic 2019 Surgical History colonoscopy 2019 Hospitalization History HTN Hospitalization History migraine Hospitalization History child 2020 [facility] Other InstructionsNot on filedocumented in this encounter [facility]Not on filedocumented in this encounter [facility] SystemInstructionsNot on filedocumented in this encounter [facility]arm[facility]istant SystemReason for visit Narrative* Consultation (Routine) - Pending Review Specialty Diagnoses / Procedures Referred By Contac t Referred To Contact Nephrology Diagnoses PKD (polycystic kidney disease) Lyly Sadler MD Phone: tel:[phone] fax: [facility] [address] [place] [address] Phone: tel: fax: Referral ID Status Reason Start Date Expiration Date Visits Requested Visits Authorized [id number] Pending Review Specialty Services Required 04/13/2024 04/13/2025 1 1 [facility] Summary Purpose Family History No Family History [...] AUTHOR'S ORGANIZ ATION 12/29/2022 [facility] DATE CREATED AUTHOR AUTHOR'S ORGANIZ ATION 07/07/2024 [facility] EPIC DATE CREATED AUTHOR AUTHOR'S ORGANIZ ATION 10/15/2024 [facility] REASON FOR VISIT (unrecogniz ed section and content) Reason Comments Gynecologic Exam Care Teams (unrecognized sec tion and content) Hand Fabric Cutter Relationship Specialty Start Date End Date Lyly Sadlre MD [address] [place] [address] PCP - General Family Medicine 06/29/23 Hand Fabric Cutter Relationship Specialty Start Date End Date Lyly Sadler MD [address] [place] [address] PCP - General Family Medicine 06/29/23 Hand Fabric Cutter Relationship Specialty Start Date End Date Lyly Sadler MD [address] [place] [address] PCP - General Family Medicine 06/29/23 Hand Fabric Cutter Relationship Specialty Start Date End Date Lyly Sadler MD [address] [facility] [place] [address] PCP - General Family Medicine 07/13/24 Hand Fabric Cutter Relationship Specialty Start Date End Date Lyly Sadler MD [address] [facility], [place] [address] PCP - General Family Medicine 07/13/24 Hand Fabric Cutter Relationship Specialty Start Date End Date Lyly Sadler MD [address] [facility], [place] [address] PCP - General Family Medicine 07/13/24 Hand Fabric Cutter Relationship Specialty Start Date End Date Lyly Sadler MD [address] [facility], [place] [address] PCP - General Family Medicine 07/13/24 FOR RECORDS PERTAINING TO PATIENTS WHO ARE [...] BE BASED ON THE PRIMARY CLINICAL RECORDS. [facility] Keep Your Pharmacy Open [facility]. provides no warranty or guarantee of the accuracy or completeness of information in this document.
== END 2024-10-24 10:55 | disposition home or self-care (01) ==
LOC: EC 10:54
PROVIDERS: PCP Family Medicine; Visit Provider Orthopaedic Surgery
DX: M79.641 Pain in right hand (principal)
CPT/HCPCS: 73130

== ENCOUNTER 2025-08-09 19:53 | Outpatient (REF) | payer OTHER, SELFPAY ==
--- OUTSIDE RECORDS SUMMARY | 2025-07-26 22:59 | XMS_ITS | Continuity of Care Document ---
Author Organization [facility] [place] Address [address] [place] [address] Care Team Providers Care Flexible Machining System Machinist Name Role Phone Jay Sadler Primary Care Physician [phone] Encounter FT_AMBFIN [id number] Date(s): 07/26/25 - 07/26/25 [facility] [place] [address] [facility], [address], [place] [address] [place] Encounter Diagnosis Abdominal pain, RLQ (right lower quadrant)(Discharge Diagnosis) - 07/26/25 Hematochezia(Discharge Diagnosis) - 07/26/25 Discharge Disposition: Home (Routine DC) Attending Physician: Vini BUCKNER MD Referring Physician: Jay Sadler MD Encounter Type: Clinic Allergies, Adverse Reactions, Alerts No Known Allergies Medications No Known Medications Problem List ConditionConfirmationCourseEffective DatesStatusHealth StatusInformantAnxiety ConfirmedActiveBMI 33.0-33.9,adultConfirmedActiveEssential hypertensionConfirmed 09/09/23ActiveGastroesophageal reflux zngumdxGnrmereql73/13/23ActiveHematochezia ConfirmedActiveMigrainesConfirmedActivePolycystic kidney diseaseConfirmedActive Obesity due to excess caloriesConfirmedActiveRectal bleedingConfirmedActive Abdominal pain, RLQ (right lower quadrant)ConfirmedActiveSleep apneaConfirmed Active Procedures ProcedureDateRelated DiagnosisBody SiteStatusColonoscopy12/10/18CompletedEGD - esophagogastroduodenoscopy12/10/18CompletedExcision of lipoma of backCompleted LaparoscopyCompletedTonsillectomy and adenoidectomyCompleted Social History Social History TypeResponseSmoking StatusNever (less than 100 in lifetime);Never entered on: 07/26/25Birth SexFemaleSex RepresentationFemale (finding) Patient Care team information Care Team Personnel Name: Jay Sadler MD Position: FT Physician Member Role: Primary Care Physician Address: [address] [place] [address] Telecom: Care Team Related Persons Name: SUE CARVALHO Insurance Providers Guarantor name: [employer] Plan Information #: 1 Payer: [employer] Payer Identifier: [id number] Member Number: [id number] Group Number: [id number] Subscriber Identifier: [id number] Relationship to Subscriber: self Coverage Type: PRIVATE HEALTH INSURANCE Coverage Verification Date: 25 Telecom: [phone] Address: [place] [address] [address] [place] [address]
--- OUTSIDE RECORDS SUMMARY | 2025-08-09 15:00 | XMS_ITS | Encounter Summary ---
Author Organization [facility] Address [address] [facility] [place] [address] Care Team Providers Care Strip Picker Name Role Phone Jay Sadler MD Primary Care Provider [phone] Reason for Visit * ReasonCommentsWell Women Visit Encounter Details DateTypeDepartmentCare Team (Latest Contact Info)Nqcdqkxsakq30/12/2025 3:00 PM ESTProcedure Visit [facility] [address] [place] [phone] Sharon Johnson PA [address] [place], [place] [id number] Well woman exam with routine gynecological exam Social History Tobacco UseTypesPacks/DayYears UsedDateSmoking Tobacco: NeverSmokeless Tobacco: NeverAlcohol UseStandard Drinks/WeekCommentsNot Currently1 (1 standard drink = 0.6 oz pure alcohol)Only on special occasionsCommentsUnknownSex and Gender InformationValueDate RecordedSex Assigned at BirthNot on fileLegal Sex Hsfana1112/10/2022 11:47 PM EDTGender IdentityNot on fileSexual OrientationNot on filedocumented as of this encounter Last Filed Vital Signs Vital SignReadingTime TakenCommentsBlood Pcnbuobe563/7008/09/2025 3:15 PM EST Pulse--Temperature--Respiratory Rate--Oxygen Saturation--Inhaled Oxygen Concentration--Yzltte75 kg (205 lb)08/09/2025 3:15 PM ESTHeight--Body Mass Index 32.1108 9:33 AM EDTdocumented in this encounter Plan of Treatment NameTypePriorityAssociated DiagnosesOrder SchedulePap SmearPathology and CytologyRoutine Well woman exam with routine gynecological exam Ordered: 08/09/2025documented as of this encounter Visit Diagnoses Diagnosis Well woman exam with routine gynecological exam Routine gynecological examination documented in this encounter Care Teams Team MemberRelationshipSpecialtyStart DateEnd Date Jay Sadler MD [address] [place] [address] PCP - GeneralFamily Medicine04/19/25documented as of this encounter
--- OUTSIDE RECORDS SUMMARY | 2025-08-09 19:57 | XMS_ITS | CCD ---
Author Organization [facility] CliniSyil Care Team Providers Care Anti Tank Missileman Name Role Phone REQUEST, DR NONE LISTED Primary Care Unavaila jessica ARVIZU, DR RAMONA Ramirez Admitting Unavailable NOLBERTO, DR RAMONA Ramirez Attending Unavailable NOLBERTO, DR RAMONA Ramirez Consulting Unavailable GRECHNY ., HILDA ORTEGA Consulting UnavailYessenia Sethi Consulting Unavailable SHANTELL ., DR SIEGEL Admitting Unavailable SHANTELL ., DR SIEGEL Attending Unavailable REQUEST, NONE LISTED Primary Care Unavaila ble SHANTELL ., DR SIEGEL Consulting Unavailable Valeria Claros Unavailable Jay Sadler MD Primary Care Provider Jay Sadler MD Primary Care Provider CYNTHIA CARO Referring Unavailable JAY SADLER Primary Care Unavailable CYNTHIA CARO Attending Unavailable CYNTHIA CARO Referring Unavailable JAY SADLER Primary Care Unavailable CYNTHIA CARO Referring Unavailable JAY SADLER Primary Care Unavailable Unavailable Primary Care Provider UnavailJay Looney MD Primary Care Provider [phone] DB CROCKETT Attending Unavailable DB CROCKETT Referring Unavailable DB CROCKETT Referring Unavailable SHARON YO Attending Unavailable SHARON YO Attending Unavailable Jay Sadler Primary Care Physician Jay Sadler MD Primary Care Provider Yessenia BUCKNER Attending Unavailable Jay Sadler Referring Unavailable Allergies Allergy ClassificationReported Allergen(s)Allergy TypeDate of OnsetReaction(s) Facility (1 source)RaspberryPropensity to adverse reactionstingles, and itchesNorth enGene Other (17 sources)raspberry allergenic extract; Translations: [RASPBERRY]Drug Allergy 46-87-1262BcfydkjGICOMethodist Medical Center of [facility] Work Phone: (4 sources)raspberry extractDrug Hkwifuj35-27-8313YlownpcEsvFvthuy Health System (1 source)No Known Medication Allergies; Translations: [No Known Medication Allergies]Propensity to adverse reactions (disorder)[facility] Medications Current Medications MedicationDrug Class(es)DatesSig (Normalized)Sig (Original)fluticasone propionate 0.05 mg/actuat metered dose nasal spray (1 source)CorticosteroidStart: 04-24-2023 End: 06-92-2728ibew 1 spray(s) nasal route in the morningfluticasone (Flonase) 50 MCG/ACT nasal spray Administer 1 spray into each nostril in the morning. 05/17/2024 Discontinuedlabetalol hydrochloride 200 mg oral tablet (8 sources)beta-Adrenergic BlockerStart: 04-01-2024 End: 84-04-0272dbnr 1 tablet by mouth oncelabetalol (Normodyne) 200 MG tablet Take 1 tablet by mouth 1 (one) time 04/01/2024 05/08/2025 Discontinued (Therapy completed)loratadine 10 mg oral capsule (15 sources)take 1 capsule by mouth once dailyLoratadine (Claritin) 10 MG capsule Take 10 mg by mouth Daily ActivemethylPREDNISolone 4 mg oral tablet (1 source)CorticosteroidStart: 58-06-6135ccvwnlUCROCVLcuqih 4 MG as directed Orally for daily dose take half with breakfast, half with dinner for 6 days May, ActiveNIFEdipine 90 mg osmotic 24 hr extended release oral tablet (5 sources)Dihydropyridine Calcium Channel BlockerStart: 98-56-4918vvob 1 tablet by mouth every twenty-four hours in the morningNIFEdipine XL (PROCARDIA XL) 90 mg 24 hr tablet Take 1 tablet (90 mg total) by mouth in the morning. 90 tablet 3 10/20/2024 ActiveStart: 07-14-2024 End: 79-45-7792sygv 1 tablet by mouth every twenty-four hours in the morning NIFEdipine XL (PROCARDIA XL) 60 mg 24 hr tablet Take 1 tablet (60 mg total) by mouth in the morning. 90 tablet 3 07/14/2024 10/20/2024 DiscontinuedPrenatal MV-Min-Fe Fum-FA-DHA ( 1 PO) (8 sources) End: 80-03-5345Mmrmdlud MV-Min-Fe Fum-FA-DHA ( 1 PO) Take by mouth 05/08/2025 Discontinued (Therapy completed) MV-Min-Fe Fum-FA-DHA ( 1 PO) Take by mouth Active Problems Active Problems Problem ClassificationProblemDateDocumented DateEpisodic/ChronicAbdominal pain (3 sources)Upper abdominal pain; Translations: [Upper abdominal pain, unspecified]Onset: 62-01-8828XsvxgzfcMnztbtfl foot deformities (2 sources)Acquired valgus deformity of left ankle; Translations: [Valgus deformity, not elsewhere classified,left ankle]57-09-7539RchjlnwiVkovzkm disorders (1 source)Aiboxmo77-34-1031ZwhgytgBewfbqguhfoir (17 sources)Endometriosis (clinical); Translations: [Endometriosis, unspecified] Onset: 182675-37-1403VwwssrsQqijltelkq disorders (18 sources)Gastroesophageal reflux disease without esophagitis; Translations: [Gastro-esophageal reflux disease without esophagitis]Onset: 09-09-2023 32-44-2920JhgfzfaBcrxcrmbm hypertension (17 sources)Essential hypertension; Translations: [Essential (primary) hypertension]Onset: 703636-84-3148EjiwgyqTyxnnurmbzxgrfpw hemorrhage (3 sources)Melena; Translations: [Hematochezia]Onset: 07-85-3545Eqtbavfy Genitourinary congenital anomalies (20 sources)Polycystic kidney, unspecified; 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]Onset: 710519-70-3982XbaeqmdRrsxzmal; including migraine (1 source)Vfomulqs13-09-1045LbwecxcThcqeghn; including migraine (4 sources)Headache; including migraine; Translations: [HEADACHE UNSPECIFIED] Onset: 19-79-9792Fxeylswpyjjbu and screening for infectious disease (1 source)Encounter for screening for human papillomavirus (HPV); Translations: [ENC SCREENING HUMAN PAPILLOMAVIRUS]Onset: 14-92-5893HmchyebrDmqky acquired deformities (2 sources)Equinus contracture of the ankle; Translations: [Contracture, left ankle]90-20-8243WdunjrxVpvkr connective tissue disease (2 sources)Tendinitis of left posterior tibial tendon; Translations: [Posterior tibial tendinitis, left leg]02-29-6774CzitlwhyPkjko connective tissue disease (2 sources)Tendinitis of right posterior tibial tendon; Translations: [Posterior tibial tendinitis, right leg]84-19-9439TktlmuunIiixf female genital disorders (16 sources)Pain in female genitalia on intercourse; Translations: [Unspecified dyspareunia]Onset: 228749-11-5970LngrxejPrpqq gastrointestinal disorders (1 source)Irritable bowel syndrome characterized by constipation; Translations: [Irritable bowel syndrome with constipation]ChronicOther gastrointestinal disorders (1 source)Constipation alternates with diarrhea; Translations: [Other specified symptoms and signs involving the digestive system and abdomen]EpisodicOther gastrointestinal disorders (1 source)Constipation; Translations: [Constipation, unspecified]EpisodicOther nervous system disorders (2 sources)Difficulty walking; Translations: [Difficulty in walking, not elsewhere classified]97-98-2957TxcewgcDdcml non-traumatic joint disorders (2 sources)Instability of joint of left ankle; Translations: [Other instability, left ankle]20-59-9739RuomjfemZafke non-traumatic joint disorders (2 sources)Sinus tarsi syndrome of left ankle; Translations: [Pain in left ankle and joints of left foot]71-13-4629IbsdffduAczds nutritional; endocrine; and metabolic disorders (16 sources)Obesity; Translations: [Obesity, unspecified]Onset: 09-09-2023 15-83-3545SkplhijZgbsj nutritional; endocrine; and metabolic disorders (1 source)Body mass index 30+ - ppogxno15-63-7167McwurnpRhvza nutritional; endocrine; and metabolic disorders (1 source)Obesity caused by energy aiaasoqlw12-98-8789UcglrpqPuvam nutritional; endocrine; and metabolic disorders (1 source)Unintentional weight loss; Translations: [Abnormal weight loss] EpisodicOther screening for suspected conditions (not mental disorders or infectious disease) (4 sources)Encounter for screening for malignant neoplasm of cervix; Translations: [ENC SCREENING MALIG NEOPLASM CERV]Onset: 28-81-0674FgukfiayGdget upper respiratory disease (16 sources)Chronic rhinitis; Translations: [Chronic rhinitis]Onset: 09-14-2023 50-03-2200StriqdmFwllffwiv by nonmedicinal substances (1 source)Toxic effect of venom of bees, accidental (unintentional), initial encounterEpisodicResidual codes; unclassified (1 source)Sleep nlekv38-28-9746Mzhtroz Past or Other Problems Problem ClassificationProblemDateDocumented DateEpisodic/ChronicAcute bronchitis (16 sources)Acute bronchiolitis; Translations: [Acute bronchiolitis, unspecified]Onset: 09-09-2023 Resolved: 049919-19-4042ObmhkzdbOhbzh diseases of kidney and ureters (16 sources)Kidney disease; Translations: [Disorder of kidney and ureter, unspecified]Onset: 918258-68-7363SkhlvorwJkqjk and delivery including normal (1 source) care status; Translations: [Encounter for routine follow-up]96-30-8514FcylgtthSabsra media and related conditions (16 sources)Dysfunction of bilateral eustachian tubes; Translations: [Unspecified Eustachian tube disorder, bilateral]Onset: EpisodicResidual codes; unclassified (16 sources)Bilateral lower limb edema; Translations: [Localized edema]Onset: 572333-24-2021Oyocaljm Results Test NameValueInterpretationReference RangeFacilityAmbulatory Visit Summaryon 61-65-1071Uyjcwqvmyt Visit SummaryAmbulatory Visit Summary AALIYAH CARVALHO :1995 Visit Date:07/26/2025 Ambulatory Visit Instructions Your Diagnosis Abdominal pain, RLQ (right lower quadrant) Your Care Team Attending Physician - Yessenia BUCKNER MD Primary Care Physician - Jay Sadler MD Referring Physician - Jay Sadler MD Procedures Performed Colonoscopy (12/10/2018), EGD - esophagogastroduodenoscopy (12/10/2018), Excision of lipoma of back, Laparoscopy, Tonsillectomy and adenoidectomy. Discharge Vitals Heart Rate (Peripheral) 76 Respiratory Rate 16 Blood Pressure 160/104 Height 167.6 cm Height 66 in Weight 93.9 kg Weight 207.014 lb BMI 33.43 Allergies No Known Allergies No Known Medication Allergies Problems Ongoing - Any problem that you are currently receiving treatment for. Abdominal pain, RLQ (right lower quadrant) Anxiety BMI 33.0-33.9,adult Essential hypertension Gastroesophageal reflux disease Migraines Obesity due to excess calories Polycystic kidney disease Rectal bleeding Sleep apnea Patient Survey You may receive a survey via text or e-mail asking about your office visit. Please share your experience with us by completing your survey. We appreciate your feedback and thank you for choosing us for your care. Patient Portal You may access all of your results and other medical record information on our secure patient portal. If you are not signed up for this yet, please contact [employer] at [phone] to get signed up today. Language Information Language assistance services are available as needed. [facility] Panel Informationon 39-95-5921Iwtyxkqzl Study observation (narrative)[facility] Study observation (narrative)[facility] Ankle - left 2 Viewson 05-08-2025 Imaging Result: AP, lateral views are weight-bearing. Decreased calcaneal inclination and increased talar declination. Talus is well seated within the ankle mortise. Os trigonum noted over the posterior talar process. No fractures or dislocations noted.[facility] Ankle - right 2 Viewson 70-65-3024YPLL HealthcareImaging Result: Entered in error, wrong [facility] - [facility] 2 Views on 11-74-2321Xuebgwn Result: AP, medial oblique views are weight-bearing. Increased IM 1-2 angle. Slight joint space narrowing of the 1st MTP. No cystic changes noted. Approximately 30 percent talar head uncoverage. Os trigonum noted over the posterior subtalar joint region.[facility] Foot - right 2 Viewson 28-57-1632SS[facility] HealthcareImaging Result: Entered in error, wrong [facility] HospitalBASIC METABOLIC PANLon 34-13-5038Knqwq gap [Moles/Vol]8 mmol/LNormal5-15[facility] Comment on above:Performed By: #### CBC, 21172-7, 05337-8, 2731-8, 78962-7, 74588-4, 84719-7, BMP, 5196-1, 44204-6, 5193-8, 6969-0, UPCR, SIFE, 35134-7, 6968-2, 2777-1 #### [facility] ([id number]) [address], [address] [place] [address] #### 68607-8 #### [facility] ([id number]) [address] [place] [address] 82530Examjlm [Mass/Vol]9.4 mg/dLNormal8.5-10.5ProMed[facility] San BuenaventuraComment on above:Performed By: #### CBC, 33896-8, 35388-1, 2731-8, 94264-8, 37974-5, 26983-4, BMP, 5196-1, 69036-6, 5193-8, 6969-0, UPCR, SIFE, 64971-4, 6968-2, 2776-1 #### [facility] ([id number]) [address], [address] [place] [address] #### 51288-8 #### [facility] ([id number]) [address] [place] [address] 14741Qhwexegc [Moles/Vol]107 mmol/IGhwgxv63-715RgoDlqeur [facility] San BuenaventuraComment on above:Performed By: #### CBC, 89173-8, 10535-8, 2731-8, 27762-1, 55713-6, 84730-1, BMP, 5196-1, 63791-2, 5193-8, 6969-0, UPCR, SIFE, 37358-4, 6968-2, 2777-1 #### [facility] ([id number]) [address], [address] [place] [address] #### 72225-7 #### [facility] ([id number]) [address] [place] [address] 84163DV3 [Moles/Vol]28 mmol/TZovlxd80-58WjgJwmnocLouis Stokes [facility] Comment on above:Performed By: #### BERTA, 07246-7, 30678-4, 2731-8, 84751-2, 13345-6, 32781-7, BMP, 5196-1, 02660-2, 5193-8, 6969-0, UPCR, SIFE, 19477-9, 6968-2, 2777-1 #### [facility] ([id number]) [address], [address] [place] [address] #### 08645-1 #### [facility] ([id number]) [address] [place] [address] 76844Depmkyimpn [Mass/Vol]0.77 mg/dLNormal0.40-1.00[facility] Medical CenterComment on above:Result Comment: METHOD TRACEABLE TO IDMS STANDARD Performed By: #### BERTA, 47846-9, 86269-3, 2731-8, 32883-4, 59144-2, 88655-3, BMP, 5196-1, 13702-5, 5193-8, 6969-0, UPCR, SIFE, 15792-0, 6968-2, 2777-1 #### [facility] ([id number]) [address], [address] [place] [address] #### 45487-9 #### [facility] ([id number]) [address] [place] [address] 14636cYDP (CKD-EPI) NON-RACE DEPENDENT>90Normal>59ProUniversity HospitalComment on above:Result Comment: Reported eGFR is based on the CKD-EPI 2020 equation that does not use a race coefficient.Performed By: #### BERTA, 52648-5, 97814-9, 2731-8, 48651-3, 85470-1, 13940-0, BMP, 5196-1, 15409-7, 5193-8, 6969-0, UPCR, SIFE, 45569-6, 6968-2, 2777-1 #### [facility] ([id number]) [address] [place] [address], [facility] [address] [place] [address] #### 07077-6 #### [facility] ([id number]) [address] [place] [address] 36970Lfdaftx [Mass/Vol]89 mg/vDHckynw64-41MtyJijpnoUniversity Hospital Comment on above:Performed By: #### CBC, 08211-7, 18869-4, 2731-8, 57032-6, 30686-8, 09749-3, BMP, 5196-1, 70572-4, 5193-8, 6969-0, UPCR, SIFE, 27502-0, 6968-2, 2777-1 #### [facility] ([id number]) [address] [place] [address], [address] [place] [address] #### 19612-7 #### [facility] ([id number]) [address] [place] [address] 34056Lvmofvxzi [Moles/Vol]3.7 mmol/LNormal3.5-5.0ProUniversity HospitalComment on above:Performed By: #### CBC, 72732-9, 06816-5, 2731-8, 01314-3, 61540-6, 54085-0, BMP, 5196-1, 41606-9, 5193-8, 6969-0, UPCR, SIFE, 67005-4, 6968-2, 2777-1 #### [facility] ([id number]) [address] [place] [address], [address] [place] [address] #### 78222-2 #### [facility] ([id number]) [address] [place] [address] 89037Xykwng [Moles/Vol]143 mmol/DUzlyum004-696TvtOwrzxx [facility] HospitalComment on above:Performed By: #### CBC, 13644-2, 60497-3, 2731-8, 69147-6, 95494-5, 43741-6, BMP, 5196-1, 43547-8, 5193-8, 6969-0, UPCR, SIFE, 85021-8, 6968-2, 2777-1 #### [facility] ([id number]) [address] [place] [address], [facility] [address] [place] [address] #### 28320-9 #### [facility] ([id number]) [address] [place] [address] 42282Ddda nitrogen [Mass/Vol]12 mg/dLNormal5-ProUniversity HospitalComment on above:Performed By: #### CBC, 62321-0, 07083-6, 2731-8, 08261-0, 64107-6, 37435-6, BMP, 5196-1, 11930-6, 5193-8, 6969-0, UPCR, SIFE, 15647-7, 6968-2, 2777-1 #### [facility] ([id number]) [address] [place] [address], [place] [id number] #### 36466-7 #### [facility] ([id number]) [address] [place] [address] 77802FFYSIGEY BLOOD COUNTon 39-13-9387Rhieyeavzrd distribution width (RBC) [Ratio]12.8 %Bzxwwg33.5-15.0ProUniversity HospitalComment on above: Performed By: #### CBC, 42658-0, 09057-3, 2731-8, 60563-9, 00255-4, 32811-5, BMP, 5196-1, 06015-0, 5193-8, 6969-0, UPCR, SIFE, 44065-6, 6968-2, 2777-1 #### [facility] ([id number]) [address] [place] [address], [address] [place] [id number] #### 55323-1 #### [facility] ([id number]) [address] [place] [address] 01944Anxshejlhr (Bld) [Volume fraction]38.9 %Ljnlbw23-08VmoBbngasUniversity HospitalComment on above:Performed By: #### CBC, 43401-5, 01310-8, 2731- 8, 40097-7, 68444-2, 31524-7, BMP, 5196-1, 77070-4, 5193-8, 6969-0, UPCR, SIFE, 17050-7, 6968-2, 2777-1 #### [facility] ([id number]) [address] [place] [address], [address] [address] #### 20803-5 #### [facility] ([id number]) [address] [place] [address] 82335Rkprdwdfkg (Bld) [Mass/Vol]13.3 g/xBSgbwei34.7-15.5ProMed[facility] Of San BuenaventuraComment on above:Performed By: #### CBC, 00545-3, 68482-6, 2731- 8, 42323-9, 06885-2, 55582-1, BMP, 5196-1, 31259-0, 5193-8, 6969-0, UPCR, SIFE, 33432-2, 6968-2, 2777-1 #### [facility] ([id number]) [address] [place] [address], [address] [place] [address] #### 92007-9 #### [facility] ([id number]) [address] [place] [address] 43370OMK (RBC) [Entitic mass]32.0 feYsumet90-04WbiKrfeieUniversity HospitalComment on above:Performed By: #### CBC, 31510-1, 60251-1, 2731-8, 85871-3, 65013-3, 04663-0, BMP, 5196-1, 11739-4, 5193-8, 6969-0, UPCR, SIFE, 37110-6, 6968-2, 2777-1 #### [facility] ([id number]) [address], [address] [place] [address] #### 89892-4 #### [facility] ([id number]) [address] [place] [address] 69120YGFE (RBC) [Mass/Vol]34.3 g/vFQolyrk53-17LzlFscwmuUniversity HospitalComment on above:Performed By: #### CBC, 20789-2, 24462-8, 2731-8, 64589-6, 54108-5, 27875-5, BMP, 5196-1, 42489-5, 5193-8, 6969-0, UPCR, SIFE, 81279-9, 6968-2, 2777-1 #### [facility] ([id number]) [address] [facility], [address] [place] [address] #### 43469-5 #### [facility] ([id number]) [address] [place] [address] 78091ZSW (RBC) [Entitic vol]93 qFKbakre96-450TyrFitrgr [facility] HospitalComment on above:Performed By: #### CBC, 29881-6, 71109-3, 2731-8, 18657-5, 21309-7, 28850-6, BMP, 5196-1, 58946-2, 5193-8, 6969-0, UPCR, SIFE, 47413-6, 6968-2, 2777-1 #### [facility] ([id number]) [address] [facility] [facility], [address] [place] [address] #### 59095-5 #### [facility] ([id number]) [address] [place] [address] 51156Btafluur mean volume (Bld) [Entitic vol]9.4 fLNormal7-12 [facility] San BuenaventuraComment on above:Performed By: #### CBC, 65408-8, 67155-5, 2731-8, 31175-6, 58694-9, 46118-6, BMP, 5196-1, 46550-1, 5193-8, 6969- 0, UPCR, SIFE, 61713-8, 6968-2, 2777-1 #### [facility] ([id number]) [address] [facility] [facility], [address] [place] [address] #### 89874-3 #### [facility] ([id number]) [address] [place] [address] 36219Memwltjfx (Bld) [#/Vol]268 10*3/gPMpnjhw308-552CjdXmhejl [facility] HospitalComment on above:Performed By: #### BERTA, 39972-7, 51471-1, 2731- 8, 97378-1, 88745-7, 10194-7, BMP, 5196-1, 09932-9, 5193-8, 6969-0, UPCR, SIFE, 34032-5, 6968-2, 2777-1 #### [facility] ([id number]) [address] [facility], [address] [place] [address] #### 82228-8 #### [facility] ([id number]) [address] [place] [address] 88010NVK COUNT4.17 X10E12/LNormal3.80-5.20[facility] Comment on above:Performed By: #### CBC, 27085-0, 54226-8, 2731-8, 56858-4, 04651-1, 49917-1, BMP, 5196-1, 27577-6, 5193-8, 6969-0, UPCR, SIFE, 95105-4, 6968-2, 2777-1 #### [facility] ([id number]) [address], [address] [place] [address] #### 69078-4 #### [facility] ([id number]) [address] [place] [address] 28309ONY (Bld) [#/Vol]5.5 10*3/uLNormal4.0-11.0ProUniversity HospitalComment on above:Performed By: #### CBC, 13193-9, 65278-0, 2731-8, 96797-4, 96497-5, 63694-9, BMP, 5196-1, 30688-5, 5193-8, 6969-0, UPCR, SIFE, 49477-6, 6968-2, 2777-1 #### [facility] ([id number]) [address], [address] [place] [address] #### 97337-4 #### [facility] ([id number]) [address] [place] [address] 82016OAEY LIGHT CHAINSon 38-29-2783KFUB MARY ANN/LAMBD RATIO1.32Normal 0.26-1.65ProUniversity HospitalComment on above:Performed By: #### 41856-2, 2777-1, BMP, CBC, UPCR #### [facility] ([id number]) [address], [address] [place], [place] [address]TRFJ KAPPA LT CHAINS1.50 mg/dLNormal0.33-1.94ProUniversity HospitalComment on above:Performed By: #### 04896-9, 2777-1, BMP, CBC, UPCR #### [facility] ([id number]) [address], [address] [place], [place] [address]PLAP LAMBDA LT CHAINS1.14 mg/dLNormal0.57-2.63ProGreene Memorial Hospital HospitalComment on above:Performed By: #### 99752-8, 2777-1, BMP, CBC, UPCR #### [facility] ([id number]) [address], [address] [place], [place] [address]Rvapfkrqwh basement membrane IgG Qn (S)on 00-69-8128IQG IgG Ab <0.2Normal<1.0[facility]ayette Medical CenterComment on above:Performed By: #### 60860-5, 2777-1, BMP, CBC, UPCR #### [facility] ([id number]) [address], [address] [place], [place] [address]LMI core Ab IA Qlon [id number] HBcNon-ReactiveNormalNRCT ProMat[facility] centera [facility] San BuenaventuraComment on above:Result Comment: NEW TEST METHOD Performed By: #### 70257-8, 2777-1, BMP, CBC, UPCR #### [facility] ([id number]) [address], [address] [place], [place] [address]WTE surface Ab IA Qnon [id number] HBs quant.59.60 mIU/mL NormalProUniversity HospitalComment on above:Result Comment: NOTE Vaccinated: >=10.00 mIU/mL, Positive (Immune) Unvaccinated: <10.00 mIU/mL, Negative (Not Immune) Interpretive values have changed due to implementation of a new method. Values run higher than previous method.Performed By: #### 32990-1, 2777-1, BMP, CBC, UPCR #### [facility] ([id number]) [address], [address] [place], [place] [address]ZRM surface Ag IA Qlon [id number] B SURF AGNon-Reactive NormalNRCTProUniversity HospitalComment on above:Result Comment: NEW TEST METHODPerformed By: #### 40575-5, 2777-1, BMP, CBC, UPCR #### [facility] ([id number]) [address], [address] [place], [place] [address]XXV Ab IA Qlon [id number] HCV W/PCR REFLXNon-ReactiveNormal NRCTAdena Fayette Medical CenterComment on above:Result Comment: NEW TEST METHOD NOTE If recent infection suspected, recommend repeat testing (>2 months). Ipikck-fz-tggfov ratio is <1.00.Performed By: #### 06658-1, 2777-1, BMP, CBC, UPCR #### [facility] ([id number]) [address], [address] [place], [place] [address]AEC 1+2 Ab+HIV1 p24 Ag IA Qlon 05-44-0240YPT 1 and 2 Ab/Ag ScreenNon-ReactiveNormalNRCTAdena Fayette Medical CenterComaspirus [facility] hospital on above:Result Comment: NEW TEST METHOD NOTE This information [...] the release of HIV test results or diagnoses.Performed By: #### 84996-0, 2777-1, BMP, CBC, UPCR #### [facility] ([id number]) [address], [address] [place], [place] [address]AFGLHQFARtw 35-44-7951Mopchxled [Mass/Vol]1.7 mg/dLLow1.8-2.6 [facility] Hospitaled[facility] Of San BuenaventuraComment on above:Performed By: #### 17226-6, 2777-1, BMP, CBC, UPCR #### [facility] ([id number]) [address], [address] [place], [place] [address]Wmjuxymaejgsakm Ab Qn (S)on 22-92-0838Svzrdgatmjiiphn Ab<0.2 Normal<1.0Adena Fayette Medical CenterComaspirus iron river hospital on above:Performed By: #### 88770-4, 2777-1, BMP, CBC, UPCR #### [facility] ([id number]) [address], [address] [place], [place] [address]Lvywbthwkw cytoplasmic Ab panel IF (S)on 23-88-0743e-ANCA NegativeNormalNegativeCenterville on above:Performed By: #### 35137-0, 2777-1, BMP, CBC, UPCR #### [facility] ([id number]) [address], [address] [place], [place] [address]x-RDGIZkbqvqkyArpspvRmpnjjevWtuXsrexy [facility]remont HospitalComment on above:Result Comment: NOTE Negative for cANCA and pANCA patterns by immunofluorescence. ADDITIONAL INFORMATION This test was developed and its performance characteristics determined by [facility] in a manner consistent with CLIA requirements. This test has not been cleared or approved by the U.S. Food and Drug Administration. Test Performed by: [place] [address] Senior Outside Sales Representative: Hai Carias Ph.D.; CLIA# [id number] By: #### 89821- 9, 2777-1, BMP, CBC, UPCR #### [facility] ([id number]) [address] [place] [address] [place] [address]Ysrmrdo Ab IA Ql (S)on 21-20-1989HXM Screen w/reflexNegative NormalNEGCenterville on above:Result Comment: Testing performed using multiplex flow immunoassay. Eleven different antigens associated with systemic autoimmune diseases (dsDNA,Sm,Sm/MACHINE BOSS,MACHINE BOSS,Chromatin, SSA,SSB,Lily-1,Scl70,Ribo P,Centromere B) are included in this screening test.Performed By: #### 52844-8, 2777-1, BMP, CBC, UPCR #### [facility] ([id number]) [address], [address] [place], [place] [address]KSZENDHZWUeh 34-72-0114Cdkgzzbls [Mass/Vol]4.0 mg/dLNormal 2.4-4.9Adena Fayette Medical CenterComment on above:Performed By: #### 37477-7, 2777-1, BMP, CBC, UPCR #### [facility] ([id number]) [address], [address] [place], [place] [address]BOKIIMP CREAT RATIOon 78-80-4537FKLMTR URINE ZDYTNOB05 mg/L Normal<120ProUniversity HospitalComment on above:Performed By: #### 58469-8, 2777-, BMP, CBC, UPCR #### [facility] ([id number]) [address], [address] [place], [place] [address]G/PRO/VACUUM EXTRACTOR OPERATOR RATIO CALC0.04Normal<0.2PLouis Stokes [facility] Comment on above:Result Comment: Nephrotic Syndrome is associated with ratios >3.5Performed By: #### 33142-3, 2777-, BMP, CBC, UPCR #### [facility] ([id number]) [address], [address] [place], [place] [address]OMXTF CREATININE,QLO003.27 mg/dLNoalAdena Fayette Medical Center Comment on above:Performed By: #### 20540-8, 2777-1, BMP, CBC, UPCR #### [facility] ([id number]) [address], [address] [place], [place] [address]Gvcmxqtxyl.intact [Mass/Vol]on 18-05-9479AYR JZXBSN73 pg/mL Bvcprx78-10IzeFjhsqxUniversity HospitalComment on above:Performed By: #### 21350- 9, 2777-1, BMP, CBC, UPCR #### [facility] ([id number]) [address], [address] [place], [place] [address]Ptaaucibnw 3 Ab Qn (S)on 60-45-4587Jrsgdrkiqy 3 IgG Ab<0.2Normal <1.0ProUniversity HospitalComment on above:Performed By: #### 37642-8, 2777- 1, BMP, CBC, UPCR #### [facility] ([id number]) [address], [address] [place], [place] [address]HZJQB IMMUNOFIXATIONon 28-85-5683RqV [Mass/Vol]155 mg/dLNormal 68-378Adena Fayette Medical CenterComment on above:Performed By: #### CBC, 75566- 9, 10961-0, 2731-8, 36803-4, 26318-8, 49780-3, BMP, 5196-1, 42476-4, 5193-8, 6969-0, UPCR, SIFE, 24529-9, 6968-2, 2777-1 #### [facility] ([id number]) [address], [address] [place] [address] #### 42967-8 #### [facility] ([id number]) [address] [place] [address]AvN [Mass/Vol]974 mg/oICirhou149-8956WhjTeweci[address] [place] [address] Comment on above:Performed By: #### CBC, 54876-1, 98023-4, 2731-8, 64562-9, 69867-0, 30884-9, BMP, 5196-1, 99941-3, 5193-8, 6969-0, UPCR, SIFE, 04240-2, 6968-2, 2777-1 #### [facility] ([id number]) [address], [address] [place] [address] #### 34674-8 #### [facility] ([id number]) [address] [place] [address]ZtK [Mass/Vol]62 mg/vUYqnjxn90-339MrwBetnflAdena Fayette Medical Center Comment on above:Performed By: #### CBC, 90382-9, 65392-3, 2731-8, 68866-6, 97617-6, 15780-4, BMP, 5196-1, 69086-6, 5193-8, 6969-0, UPCR, SIFE, 01482-6, 6968-2, 2777-1 #### [facility] ([id number]) [address], [address] [place] [address] #### 42705-1 #### [facility] ([id number]) [address] [place] [address]KOUANR PROFILE INTERPUnremarkable pattern and quantitation, no monoclonal bands.NormalProMedica Community Memorial Hospital Of San BuenaventuraComment on above:Performed By: #### CBC, 89835-1, 32362-3, 2731-8, 50814-9, 43411-0, 95899-0, BMP, 5196-1, 44111-8, 5193-8, 6969-0, UPCR, SIFE, 46647-0, 6968-2, 277-1 #### [facility] ([id number]) [address], [address] [place] [address] #### 86523-3 #### [facility] ([id number]) [address] [place] [address]TOUXLSOSIUyl 62-62-9172Xwwzzwjiw Ql (U)NegativeNormalNEG Pro[facility] San BuenaventuraComment on above:Performed By: #### 83050-1, 2777-1, BMP, CBC, UPCR #### [facility] ([id number]) [address], [address] [place], [place] [address]PTNFP/HGBNegativeNormalNEGProOhiohealth Grove City Methodist Hospitalca [facility] Of San BuenaventuraComment on above:Performed By: #### 39578-9, 2777-1, BMP, CBC, UPCR #### [facility] ([id number]) [address], [address] [place], [place] [address]Ttmjy (U)ORANGEAbnormalYELLOWProMedica Linden HospitalComment on above:Performed By: #### 79406-3, 2777-1, BMP, CBC, UPCR #### [facility] ([id number]) [address], [address] [place], [place] [address]Vksqmkr Ql (U)NegativeNormalNEGProUniversity HospitalComment on above:Performed By: #### 37042-3, 277-, BMP, CBC, UPCR #### [facility] ([id number]) [address], [address] [place], [place] [address]Azqixna Ql (U)NegativeNormalNEGProUniversity HospitalComment on above:Performed By: #### 40348-9, 277-, BMP, CBC, UPCR #### [facility] ([id number]) [address], [address] [place], [place] [address]Dgrfxaidc esterase Test strip Ql (U)NegativeNoalNEGAdena Fayette Medical CenterComaspirus iron river hospital on above:Performed By: #### 68646-3, 277-, BMP, CBC, UPCR #### [facility] ([id number]) [address], [address] [place], [place] [address]LORFVPGYAFVNQUeveicrqBKTBZtlTbfseb [facility]remont HospitalComment on above:Performed By: #### 47335-8, 277-, BMP, CBC, UPCR #### [facility] ([id number]) [address], [address] [place], [place] [address]Tofvnqp Ql (U)NegativeNormalNEGProUniversity HospitalComment on above:Performed By: #### 98880-9, 277-1, BMP, CBC, UPCR #### [facility] ([id number]) [address], [address] [place], [place] [address]cU (U)5.5 [pH]Normal5.0-8.5PLouis Stokes Cleveland VA Medical CenterComment on above:Performed By: #### 95665-2, 2776-1, BMP, CBC, UPCR #### [facility] ([id number]) [address], [address] [place], [place] [address]Byhdehd Ql (U)NegativeNormalNEGProUniversity HospitalComment on above:Performed By: #### 30245-6, 2776-, BMP, CBC, UPCR #### [facility] ([id number]) [address], [address] [address]E.B.CELLS2 /hpfNormal0-5PLouis Stokes Cleveland VA Medical CenterComment on above:Performed By: #### 67675-7, 2776-09, BMP, CBC, UPCR #### [facility] ([id number]) [address], [address] [address]Qlonmbrb gravity (U) [Rel density]1.903Xsislg2.003-1.035 Pro[facility] Of San BuenaventuraComment on above:Performed By: #### 81127-8, 2776-09, BMP, CBC, UPCR #### [facility] ([id number]) [address], [address] [address]BQRRVIPW EPITHELIUM6 /hpfHigh0-5PLouis Stokes [facility] Comment on above:Performed By: #### 79146-5, 2776-09, BMP, CBC, UPCR #### [facility] ([id number]) [address], [address] [address]MHBHBYCTSJDZJRWYffbjtcuXKLWSFftMoaeiu [facility] HospitalComment on above:Performed By: #### 68007-6, 2776-, BMP, CBC, UPCR #### [facility] ([id number]) [address], [address] [address]Fwgcxnawjxpd (U) [Mass/Vol]mg/dLNormal<1.1PLouis Stokes Cleveland VA Medical CenterComment on above:Performed By: #### 56850-4, 2776-, BMP, CBC, UPCR #### [facility] ([id number]) [address], [address] [place], [place] [address]D.B.CELLS1 /hpfNormal0-5ProMedica [facility] Of San BuenaventuraComment on above:Performed By: #### 82696-7, 2777-, BMP, CBC, UPCR #### [facility] ([id number]) [address], [address] [place], [place] [address]Qjvpndw D+Metabolites [Mass/Vol]on 08-17-9891WAAHXAN D 25 HYD TOT18.5 ng/qBAag69-653SmoXptydu [facility] San BuenaventuraComment on above:Result Comment: Vitamin D status 25 [place] Vitamin D Deficiency <20 ng/mL Insufficiency 20-29 ng/mL Sufficiency 30-100 ng/mL Toxicity >100 ng/mL NOTE: A pediatric reference range has not been established by the city superintendent of this kit. The [place] [employer] recommends a Vitamin D level of = or >20ng/mL in infants and children.Performed By: #### 62514-8, 27703-28, BMP, CBC, UPCR #### [facility] ([id number]) [address], [address] [address]KV RETROPERITONEAL COMPLETEon 09-09-9994AJ RETROPERITONEAL COMPLETEUS RETROPERITONEAL COMPLETE HISTORY: A 28-year-old female with the history of the autosomal dominant polycystic kidney disease.Check the size. TECHNIQUE: Multiple real-time images of [...] x 6.9 x 6.4 cm. Left renal corticalthickness measures 0.7 cm. There are multiple small [...] jets are visualized. Small amount of post voidresidual urine is seen as measures 44 mL. [...] by Misael Knox MD on 07/19/2024 5:08 PMNormalProUniversity HospitalBASI METABOLIC PANLon 83-04-7000Lihbn gap [Moles/Vol]9 mmol/LNormal5-15 [facility] Hospitaledica [facility] Of San BuenaventuraComment on above:Performed By: #### 78125-2, 2777-1, BMP, CBC, UPCR #### [facility] ([id number]) [address], [address] [place], [place] [address]Jfrkhye [Mass/Vol]9.2 mg/dLNormal8.5-10.5PAvoyelles Hospitalica Community [facility] Of San BuenaventuraComment on above:Performed By: #### 26717-6, 2777-1, BMP, CBC, UPCR #### [facility] ([id number]) [address], [address] [place], [place] [address]Pzpfoxos [Moles/Vol]107 mmol/ZYcpmjt04-259QeuLicrvaAdena Fayette Medical CenterComment on above:Performed By: #### 28946-8, 2777-1, BMP, CBC, UPCR #### [facility] ([id number]) [address], [address] [place], [place] [address]TM5 [Moles/Vol]26 mmol/PIpfyuz04-69XknKkcndxLouis Stokes [facility] Medical Center Comment on above:Performed By: #### 47721-9, 2777-, BMP, CBC, UPCR #### [facility] ([id number]) [address], [address] [place], [place] [address]Tzhclibzrl [Mass/Vol]0.83 mg/dLNormal0.40-1.00Adena Fayette Medical CenterComment on above:Result Comment: METHOD TRACEABLE TO IDMS STANDARD Performed By: #### 28736-9, 2777-, BMP, CBC, UPCR #### [facility] ([id number]) [address], [address] [place], [place] [address]gWOS (CKD-EPI) NON-RACE DEPENDENT>90Normal>59ProUniversity HospitalComment on above:Result Comment: Reported eGFR is based on the CKD-EPI 2020 equation that does not use a race coefficient.Performed By: #### 52908-6, 2777-, BMP, CBC, UPCR #### [facility] ([id number]) [address], [address] [place], [place] [address]Jtmliio [Mass/Vol]97 mg/uQTxwrst46-86HvhUpkvapAdena Fayette Medical Center Comment on above:Performed By: #### 97510-3, 2777-, BMP, CBC, UPCR #### [facility] ([id number]) [address], [address] [place], [place] [address]Joplxdxek [Moles/Vol]4.2 mmol/LNormal3.5-5.0Adena Fayette Medical CenterComment on above:Performed By: #### 74848-3, 2777-, BMP, CBC, UPCR #### [facility] ([id number]) [address], [address] [place] [address]Qavctx [Moles/Vol]142 mmol/FGgisgw840-287AvuSmzdceAdena Fayette Medical CenterComment on above:Performed By: #### 53838-4, 2776-09, BMP, CBC, UPCR #### [facility] ([id number]) [address], [address] [place], [place] [address]Fefp nitrogen [Mass/Vol]18 mg/dLNormal5-23ProUniversity HospitalComment on above:Performed By: #### 64502-3, 2776-09, BMP, CBC, UPCR #### [facility] ([id number]) [address], [address] [place], [place] [address]OWJJIBME BLOOD COUNTon 33-65-0462Psmjcleqntz distribution width (RBC) [Ratio]12.9 %Yecknu58.5-15.0Adena Fayette Medical CenterComment on above: Performed By: #### 41893-0, 2776-09, BMP, CBC, UPCR #### [facility] ([id number]) [address], [address] [place], [place] [address]Tkybltkezi (Bld) [Volume fraction]42.6 %Nqnphn39-83MtwXnssgvUniversity HospitalComment on above:Performed By: #### 63591-2, 2776-09, BMP, CBC, UPCR #### [facility] ([id number]) [address], [facility] [address] [place], [place] [address]Fxkraukxex (Bld) [Mass/Vol]14.4 g/qATtxdos55.7-15.5PLouis Stokes Cleveland VA Medical CenterComment on above:Performed By: #### 66359-9, 2776-09, BMP, CBC, UPCR #### [facility] ([id number]) [address], [address] [place], [place] [address]DBB (RBC) [Entitic mass]32.3 ovNjmxav34-97GskKulejeUniversity HospitalComment on above:Performed By: #### 18406-1, 277-, BMP, CBC, UPCR #### [facility] ([id number]) [address], [address] [place] [address]BJOI (RBC) [Mass/Vol]33.8 g/oKTufszn49-46IidFuectwUniversity HospitalComment on above:Performed By: #### 17031-0, 277-, BMP, CBC, UPCR #### [facility] ([id number]) [address], [address] [place], [place] [address]ORF (RBC) [Entitic vol]96 uIGtmnoz93-619KupVdvfkq [facility] HospitalComment on above:Performed By: #### 92584-4, 2776-, BMP, CBC, UPCR #### [facility] ([id number]) [address], [address] [place], [place] [address]Jzyczhva mean volume (Bld) [Entitic vol]9.0 fLNormal7-12 [facility] Of San BuenaventuraComment on above:Performed By: #### 53673-4, 277-, BMP, CBC, UPCR #### [facility] ([id number]) [address], [address] [place], [place] [address]Lctqpqefb (Bld) [#/Vol]269 10*3/iZHlcqze599-608FopJntmrt [facility] HospitalComment on above:Performed By: #### 27726-5, 277-, BMP, CBC, UPCR #### [facility] ([id number]) [address], [address] [place] [address]DDP COUNT4.45 X10E12/LNormal3.80-5.20[facility] Comment on above:Performed By: #### 83599-8, 277-, BMP, CBC, UPCR #### [facility] ([id number]) [address], [address] [place], [place] [address]LRI (Bld) [#/Vol]5.1 10*3/uLNormal4.0-11.0Adena [facility] Medical CenterComment on above:Performed By: #### 87609-2, 2777-1, BMP, CBC, UPCR #### [facility] ([id number]) [address], [address] [place] [address]ZHTVRYWJHco 29-48-7044Mfassbayu [Mass/Vol]1.8 mg/dLNormal1.8-2.6 ProMAlhambra Hospital Medical CenterComment on above:Performed By: #### 43812-2, 277-1, BMP, CBC, UPCR #### [facility] ([id number]) [address], [address] [place], [place] [address]SPFIPZOTBPrg 67-31-4467Eztmqnpnj [Mass/Vol]3.7 mg/dLNormal 2.4-4.9A[facility] Medical CenterComment on above:Performed By: #### 03530-2, 277-, BMP, CBC, UPCR #### [facility] ([id number]) [address], [address] [place], [place] [address]UWQNFBE CREAT RATIOon 08-94-5510KAGBFZ URINE CZYWNKQ160 mg/LHigh <120Adena [facility] Medical CenterComment on above:Performed By: #### 09514-9, 2777- , BMP, CBC, UPCR #### [facility] ([id number]) [address], [address] [place], [place] [address]B/PRO/VACUUM EXTRACTOR OPERATOR RATIO CALC0.09Normal<0.2PLouis Stokes [facility] Comment on above:Result Comment: Nephrotic Syndrome is associated with ratios >3.5Performed By: #### 03270-0, 2777-1, BMP, CBC, UPCR #### [facility] ([id number]) [address], [address] [place], [place] [address]ZLWXW CREATININE,FZS392.44 mg/dLSsm Health Cardinal Glennon Children'S HospitalalAdena [facility] Comment on above:Performed By: #### 78980-3, 2777-1, BMP, CBC, UPCR #### [facility] ([id number]) [address], [address] [place], [place] [address]WQAVMSKUFRul 74-72-7770Wqucnroat Ql (U)NegativeNormalNEG [facility] San BuenaventuraComment on above:Performed By: #### UA #### [facility] ([id number]) [address] [place], [place] [address]MHUVV/HGBNegativeNormalNEGProUniversity HospitalComment on above:Performed By: #### UA #### [facility] ([id number]) [address] [place], [place] [address]Obqoj (U)YELLOWNormalYELLOWProUniversity HospitalComment on above:Performed By: #### UA #### [facility] ([id number]) [address] [place], [place] [address]Ndnrjmn Ql (U)NegativeNormalNEGProUniversity HospitalComment on above:Performed By: #### UA #### [facility] ([id number]) [address] [place], [place] [address]Nyrfulg Ql (U)NegativeNormalNEGProUniversity HospitalComaspirus iron river hospital on above:Performed By: #### UA #### [facility] ([id number]) [address], [address] [place], [place] [address]Vlyzvkxjx esterase Test strip Ql (U)NegativeNormalNEGProUniversity HospitalComaspirus iron river hospital on above:Performed By: #### UA #### [facility] ([id number]) [address], [address] [place], [place] [address]UPQHNYVNKCOLJJgvcihyiPUKDTduPndtkd [facility] HospitalComaspirus [facility] hospital on above:Performed By: #### UA #### [facility] ([id number]) [address] [place], [place] [address]Wycetzv Ql (U)NegativeNormalNEGAdena Fayette Medical CenterComment on above:Performed By: #### UA #### [facility] ([id number]) [address], [address] [place], [place] [address]bV (U)5.5 [pH]Normal5.0-8.5PLouis Stokes Cleveland VA Medical CenterComment on above:Performed By: #### UA #### [facility] ([id number]) [address], [address] [place], [place] [address]Jpnjwrt Ql (U)TraceAbnormalNEGAdena Fayette Medical CenterComment on above:Performed By: #### UA #### [facility] ([id number]) [address], [address] [place], [place] [address]Y.B.CELLS1 /hpfNormal0-5PLouis Stokes Cleveland VA Medical CenterComment on above:Performed By: #### UA #### [facility] ([id number]) [address], [address] [place], [place] [address]Mgoyumxn gravity (U) [Rel density]1.062Hqmzon3.003-1.035 [facility]ayette Medical CenterComment on above:Performed By: #### UA #### [facility] ([id number]) [address], [address] [place], [place] [address]VWZKGAXA LPGOYMCSWG79 /hpfHigh0-5PLouis Stokes [facility] Comment on above:Performed By: #### UA #### [facility] ([id number]) [address], [address] [place], [place] [address]TADCKHOCAKEDEJPwjekyTRECGIorMdsaom Fremont HospitalComment on above:Performed By: #### UA #### [facility] ([id number]) [address], [address] [place], [place] [address]Blnkcwpiphip (U) [Mass/Vol]mg/dLNormal<1.1ProMedica Linden HospitalComment on above:Performed By: #### UA #### [facility] ([id number]) [address], [address] [place], [place] [address]R.B.CELLS2 /hpfNormal0-5ProMedica Linden HospitalComment on above:Performed By: #### UA #### [facility] ([id number]) [address] [place], [place] [address]GFL,APTIMA HPV,AGE GDLNon [id number] GDLN ACOG TESTINGNote. [facility] HealthcareComment on above:TESTS RESULT FLAG UNITS REF RANGE LAB Clinician Provided Cytology Information Source.............Cervix;Endocervix No. of containers..01 ThinPrep Vial Age Algo ACOG Ligia... -26 10 FLAG LEGEND: L-Low Normal,H-High Normal,LL-Alert Low,HH-Alert High <-Panic Low,>-Panic High,A-Abnormal,AA-Critical Abnormal Performed at: 01 =[facility] [address] Gillian Guillaume MD, IGP, RFX APTIMA HPV ASCUNote.NOMS HealthcareComment on above:TESTS RESULT FLAG UNITS REF RANGE LAB DIAGNOSIS: 02 NEGATIVE FOR INTRAEPITHELIAL LESION OR MALIGNANCY. Specimen adequacy: 02 Satisfactory for evaluation. Endocervical and/or squamous metaplastic cells (endocervical component) are present. Performed by: 02 Matt Martínez, Exhaust Machine Operator ([facility]) . 02 Note: Note 02 The [...] <-Panic Low,>-Panic High,A-Abnormal,AA-Critical Abnormal Performed at: [address] [facility] [address] [place] [address] Gillian Guillaume MD, Performed at: = - [facility] [address], [place] [id number] Senior Outside Sales Representative: Gillian Guillaume MD, Phone: [phone] Performed at: [facility] [id number] Senior Outside Sales Representative: Gillian Guillaume MD, Phone: [phone] BRUSH-SPATULA CERVIX ENDOCERVIX CLINISYNCNONE HealthcareALL BUNon [id number] nitrogen [Mass/Vol]6.0 mg/dLLow 7.0 - 18.0 mg/dLOREM COMMUNITY [facility]PITAL HealthcareALL CBC WITH AUTO DIFFon [id number] ABSOLUTE AUTO0.0NONE HealthcareBasophils/100 WBC (Bld)0.0 %Low0.2 - 2.0 %[facility]helps HealthEosinophils/100 WBC (Bld)1.6 %0.9 - 7.0 %[facility]helps HealthErythrocyte distribution width (RBC) [Ratio]12.7 %11.0 - 15.0 %[facility] HealthcareHematocrit (Bld) [Volume fraction]38.6 %36.0 - 48.0 %[facility] HealthHemoglobin (Bld) [Mass/Vol]13.2 g/dL12.0 - 16.0 g/dLPhelps HealthIMMATURE GRANULOCYTES ABS AUTO 0.05HighNOI-70 Community HospitalImmature granulocytes/100 WBC (Bld)0.6 %High0.0 - 0.5 % [facility] HealthInterpretation and review of laboratory resultsAbnormalPhelps HealthLYMPHOCYTES ABSOLUTE AUTO0.9LowNOMS Highland District HospitalLymphocytes/100 WBC (Bld)9.8 %Low20.5 - 60.0 %[facility] MonettH (RBC) [Entitic mass]33.1 pg26.7 - 34.0 pgCox MonettHC (RBC) [Mass/Vol]34.2 g/dL29.9 - 35.2 g/dLCox MonettV (RBC) [Entitic vol]96.7 fL81.0 - 99.0 fLPhelps HealthMONOCYTES ABSOLUTE AUTO0.4NOMS Highland District HospitalMonocytes/100 WBC (Bld)4.2 %1.7 - 12.0 %[facility] HealthNEUTROPHILS ABSOLUTE AUTO7.3HighNOI-70 Community HospitalNeutrophils/100 WBC (Bld)83.8 %High43.0 - 75.0 %[facility] HealthPlatelet mean volume (Bld) [Entitic vol]11.0 fL9.5 - 13.5 fLPhelps HealthTB EO #0.1NOMS Highland District HospitalTB TNR252DDFUChristian Hospital RBC3.99LowNOI-70 Community HospitalTB WBC8.7NONE HealthcareCLINISYNHARLEY PRIVATE HOSPITAL HealthcareALL URIC ACIDon 47-95-5297Xdvwe [Mass/Vol]3.8 mg/dL2.6 - 6.0 mg/dLPhelps HealthCCF Joie 75-78-5535JJL [Catalytic activity/Vol]25 U/L14 - 59 U/LNHermann Area District Hospital APTTon 58-47-6972oCSM Coag (Bld) [Time]25.2 [facility] Isaias 45-54-1714XYS [Catalytic activity/Vol]22 U/L15 - 37 U/LNMadison Medical CenterMHPT FIBRINOGENon 86-84-8657RYQHVWMYBV211 mg/mVTlps651 - 400 mg/dLOREM [facility] Healthcare Interpretation and review of laboratory resultsAbSelect Specialty Hospital-PontiacNo Panel Informationon 76-74-8657GKBFMHVNVSBSS HealthcareInterpretation and review of laboratory resultsAbDuke Regional HospitalMCOH PROTHROMBIN TIME INR W/O COUMon 12-88-8399DH Coag (PPP) [Time]9.9 [facility] INR0.93[facility] HealthcareComment on above:DESIRED INR: 2.0-3.0 CONDITIONS NOT LISTED BELOW 2.5-3.5 FOR PROSTHETIC HEART VALVE REPLACEMENT 2.5-3.5 RECURRENT THROMBOSIS TB CREATININEon 92-58-2478Moddppfbqv [Mass/Vol]0.51 mg/dLLow0.55 - 1.02 mg/dL NOMS HealthcareGFR/1.73 sq M.predicted CKD-EPI (S/P/Bld) [Vol rate/Area]>6060 - PINFPhelps HealthTB EGFR-NON AF MONTSERRATIAN>6060 - PINSalem [facility] DRUG SCREEN RAPID (URINE)on 10-97-6487JUWLPLLFIWM SCREEN URINENegativeNEGATIVENOMS HealthcareBARBITURATES SCREEN URINENegativeNEGATIVENOMS Healthcare BENZODIAZEPINES SCREEN URINENegativeNEGATIVENOMS HealthcareBUPRENORPHINE SCREEN URINENegativeNEGATIVENOMS HealthcareComment on above:DRUG CLASS TEST SYSTEM CUT- OFF CONCENTRATIONS ARE FOLLOWS: AMP (Amphetamine): 500 ng/mL BAR (Barbiturates): 200 ng/mL BZO (Benzodiazepines): 150 ng/mL BUP (Buprenorphine): 10 ng/mL TOMER (Cocaine): 150 ng/mL mAMP (Methamphetamine): 500 ng/mL MTD (Methadone): 200 ng/mL OPI (Opiates): 100 ng/mL OXY (Oxycodone): 100 ng/mL PCP (Phencyclidine): 25 ng/mL THC (Cannabinoids): 50 ng/mL TCA (Trycyclic Antidepressants): 300 ng/mL CANNABINOID SCREEN URINENegativeNEGATIVENOMS HealthcareCOCAINE SCREEN URINE NegativeNEGATIVENOMS HealthcareMETHADONE SCREEN URINENegativeNEGATIVENOMS HealthcareMETHAMPHETAMINES SCREEN URINENegativeNEGATIVENOMS HealthcareOPIATE SCREEN URINENegativeNEGATIVENOMS HealthcareOXYCODONE SCREEN URINENegative NEGATIVENOMS HealthcarePHENCYCLIDINE SCREEN URINENegativeNEGATIVENOMS Healthcare TRICYCLIC ANTIDEPRESSANT URINENegativeNEGATIVENOMS HealthcareTBH URINE T PROTEIN CREAT RATIOon 42-62-8934SDILUYEKXZ URINE VEKKNP372.07 mg/dL20.00 - 300.00 mg/dL NOM[facility] HealthcareInterpretation and review of laboratory resultsAbnormalNOMS HealthcareProtein (U) [Mass/Vol]22.3 mg/dLHighNINF - 11.9 mg/dLNOMS Healthcare PROTEIN CREATININE RATIO URINE0.20NOMS HealthcareCLINISYNCNOMS HealthcareUS OB BPP W NON-STRESSon 01-29-8553[place]xz[place] [address] Ultrasound Report Signed Patient: AALIYAH CARVALHO MR#: [id number] : 1995 Acct:[id number] Age/Sex: 28 / F ADM Date: 03/30/24 Loc: [facility] 250-[address]: Juan C Stinson D.O. Ordering Physician: Juan C Stinson D.O. Date of Service: 03/30/24 Procedure(s): US OB BPP w non-stress Accession Number(s): [id number] cc: Juan C Stinson D.O.; Jay Sadler M.D. [address] [address] Patient Name: AALIYAH CARVALHO MRN: [id number] date: 1995 Sex: F Assigned Patient Location: [facility] Current Patient Location: [facility] Accession/Order Number: [id number] Exam Date: 03/30/2024 08:03 Report Date: 03/30/2024 09:13 At the request of: JUAN C STINSON Procedure: US OB BPP w non-stress EXAMINATION: US OB BPP w non-stress HISTORY:History of kidney disease Z87.448 COMPARISON: No relevant comparison available. TECHNIQUE: Ultrasound biophysical profile was performed in the radiology department. BREATHING MOVEMENTS: 2 GROSS BODY MOVEMENTS: 2 TONE: 2 QUALITATIVE AMNIOTIC FLUID VOLUME: 2 PRESENTATION: CEPHALIC HEART RATE: 134.33 bpm AMNIOTIC FLUID VOLUME: 15.64 cm GESTATIONAL AGE: 89 Day US/US OB BPP w non-stress IMPRESSION: Total biophysical profile score: 8 Electronically authenticated by: CHELSEA DELCID Date: 03/30/2024 09:13 Dictated By: Chelsea Delcid M.D. Signed By: 03/30/24915 DD/ 2 TD/TT: Inspector Line:TBHRadiology, Radiologist, MD - 03/30/2024 [place] [address] Ultrasound Report Signed Patient: AALIYAH CARVALHO MR#: [id number] : 1995 Acct:[id number] Age/Sex: 28 / F ADM Date: 03/30/24 Loc: [facility] 250-[address]: Juan C Stinson D.O. Ordering Physician: Juan C Stinson D.O. Date of Service: 03/30/24 Procedure(s): US OB BPP w non-stress Accession Number(s): [id number] cc: Juan C Stinson D.O.; Jay Sadler M.D. The [address] [address] Patient Name: AALIYAH CARVALHO MRN: [id number] date: 1995 Sex: F Assigned Patient Location: [facility] Current Patient Location: [facility] Accession/Order Number: [id number] Exam Date: 03/30/2024 08:03 Report Date: 03/30/2024 09:13 At the request of: JUAN C STINSON Procedure: US OB BPP w non-stress EXAMINATION: US OB BPP w non-stress HISTORY:History of kidney disease Z87.448 COMPARISON: No relevant comparison available. TECHNIQUE: Ultrasound biophysical profile was performed in the radiology department. BREATHING MOVEMENTS: 2 GROSS BODY MOVEMENTS: 2 TONE: 2 QUALITATIVE AMNIOTIC FLUID VOLUME: 2 PRESENTATION: CEPHALIC HEART RATE: 134.33 bpm AMNIOTIC FLUID VOLUME: 15.64 cm GESTATIONAL AGE: 89 Day US/US OB BPP w non-stress IMPRESSION: Total biophysical profile score: 8 Electronically authenticated by: CHELSEA DELCID Date: 03/30/2024 09:13 Dictated By: Chelsea Delcid M.D. Signed By: 03/30/24915 DD/ 2 TD/TT: Inspector Line: JOSE HealthcareRadiology Study observation (narrative)NOMS HealthcareUS OB BPP W NON-STRESSOrdered By: Radiologist Radiology on 43-46-8545[facility] Work Phone: US OB GROWTHon [phone], [place] [address] Ultrasound Report Signed Patient: AALIYAH CARVALHO MR#: [id number] : 1995 Acct:[id number] Age/Sex: 28 / F ADM Date: 03/30/24 Loc: [facility] 250-[address]: Juan C Stinson D.O. Ordering Physician: Juan C Stinson D.O. Date of Service: 03/30/24 Procedure(s): US OB growth Accession Number(s): [id number] cc: Juan C Stinson D.O.; Jay Sadler M.D. [address] [address] Patient Name: AALIYAH CARVALHO MRN: [id number] date: 1995 Sex: F Assigned Patient Location: [facility] Current Patient Location: [facility] Accession/Order Number: [id number] Exam Date: 03/30/2024 08:03 Report Date: 03/30/2024 09:17 At the request of: JUAN C STINSON Procedure: US OB growth EXAMINATION: US OB growth HISTORY: Pre-eclampsia in prior O09.299 COMPARISON: Ultrasound OB growth 03/01/2024 FINDINGS: Heart Rate: 134.33 bpm Amniotic Fluid Volume: 15.6 cm (normal range) Number: 1 Position: CEPHALIC BIOMETRY: BPD: 9.03 cm cm; ; 74.40 %% HC: 33.35 cm cm; ; 71.20 %% AC: 37.11 cm cm; ; 97 %% FL: 7.16 cm cm; ; 64.20 %% EFW: 3726.56 g; 97 % FL/AC: 19.31 FL/BPD: 79.34 HC/AC: 0.90 GESTATIONAL AGE: Age by EDC: 36 weeks 0 days BEBE by EDC: 2024-04-27 Age by US: 38 weeks 1 day BEBE by US: 2024-04-12 US/US OB growth IMPRESSION: 1. Single live intrauterine with growth detailed above. 2. weight and abdominal circumference is greater than 97th percentile. 3. Both kidneys appear prominent (5.5 x 2.9 x 3.4 cm on right; 5.5 x 2.7 x 3.6 cm on left). Electronically authenticated by: CHELSEA DELCID Date: 03/30/2024 09:17 Dictated By: Chelsea Delcid M.D. Signed By: 03/30/24919 DD/ 6 TD/TT: Inspector Line:TBHRadiology, Radiologist, MD - 03/30/2024 [place] [address] Ultrasound Report Signed Patient: AALIYAH CARVALHO MR#: [id number] : 1995 Acct:[id number] Age/Sex: 28 / F ADM Date: 03/30/24 Loc: [facility] 250-[address]: Juan C Stinson D.O. Ordering Physician: Juan C Stinson D.O. Date of Service: 03/30/24 Procedure(s): US OB growth Accession Number(s): [id number] cc: Juan C Stinson D.O.; Jay Sadler M.D. [place] [address] Patient Name: AALIYAH CARVALHO MRN: [id number] date: 1995 Sex: F Assigned Patient Location: [facility] Current Patient Location: [facility] Accession/Order Number: [id number] Exam Date: 03/30/2024 08:03 Report Date: 03/30/2024 09:17 At the request of: JUAN C STINSON Procedure: US OB growth EXAMINATION: US OB growth HISTORY: Pre-eclampsia in prior O09.299 COMPARISON: Ultrasound OB growth 03/01/2024 FINDINGS: Heart Rate: 134.33 bpm Amniotic Fluid Volume: 15.6 cm (normal range) Number: 1 Position: CEPHALIC BIOMETRY: BPD: 9.03 cm cm; ; 74.40 %% HC: 33.35 cm cm; ; 71.20 %% AC: 37.11 cm cm; ; 97 %% FL: 7.16 cm cm; ; 64.20 %% EFW: 3726.56 g; 97 % FL/AC: 19.31 FL/BPD: 79.34 HC/AC: 0.90 GESTATIONAL AGE: Age by EDC: 36 weeks 0 days BEBE by EDC: 2024-04-27 Age by US: 38 weeks 1 day BEBE by US: 2024-04-12 US/US OB growth IMPRESSION: 1. Single live intrauterine with growth detailed above. 2. weight and abdominal circumference is greater than 97th percentile. 3. Both kidneys appear prominent (5.5 x 2.9 x 3.4 cm on right; 5.5 x 2.7 x 3.6 cm on left). Electronically authenticated by: CHELSEA DELCID Date: 03/30/2024 09:17 Dictated By: Chelsea Delcid M.D. Signed By: 03/30/24919 DD/ 6 TD/TT: Inspector Line: NOMS HealthcareRadiology Study observation (narrative)NOMS HealthcareUS OB GROWTHOrdered By: Radiologist Radiology on 05-65-3332[facility] Work Phone: US OB BPP W NON-STRESSon [phone] [address] Ultrasound Report Signed Patient: AALIYAH CARVALHO MR#: [id number] : 1995 Acct:[id number] Age/Sex: 28 / F ADM Date: 03/23/24 Loc: US Attending Dr: Juan C Stinson D.O. Ordering Physician: Juan C Stinson D.O. Date of Service: 03/23/24 Procedure(s): US OB BPP w non-stress Accession Number(s): [id number] cc: Juan C Stinson D.O.; Jay Sadler M.D. [place] [id number] Patient Name: AALIYAH CARVALHO MRN: [id number] date: 1995 Sex: F Assigned Patient Location: [facility] Current Patient Location: Accession/Order Number: [id number] Exam Date: 03/23/2024 07:57 Report Date: 03/23/2024 08:58 At the request of: JUAN C STINSON Procedure: US OB BPP w non-stress EXAMINATION: US OB BPP w non-stress HISTORY: H/O PRE-ECLAMPSIA IN PRIOR O09.299 COMPARISON: 03/16/2024 TECHNIQUE: Ultrasound biophysical profile was performed in the radiology department. FINDINGS: BREATHING MOVEMENTS: 2 GROSS BODY MOVEMENTS: 2 TONE: 2 QUALITATIVE AMNIOTIC FLUID VOLUME: 2 PRESENTATION: CEPHALIC HEART RATE: 145.16 bpm AMNIOTIC FLUID VOLUME: 15 cm GESTATIONAL AGE: 35w0d US/US OB BPP w non-stress IMPRESSION: Total biophysical profile score: 8 Electronically authenticated by: JUDY WOMACK Date: 03/23/2024 08:58 Dictated By: Judy Womack M.D. Signed By: 03/23/24900 DD/ TD/TT: Inspector Line:TBHRadiologSushma merida MD - 03/23/2024 [place] [address] Ultrasound Report Signed Patient: AALIYAH ACRVALHO MR#: [id number] : 1995 Acct:[id number] Age/Sex: 28 / F ADM Date: 03/23/24 Loc: US Attending Dr: Juan C Stinson D.O. Ordering Physician: Juan C Stinson D.O. Date of Service: 03/23/24 Procedure(s): US OB BPP w non-stress Accession Number(s): [id number] cc: Juan C Stinson D.O.; Jay Sadler M.D. The [place] [id number] Patient Name: AALIYAH CARVALHO MRN: [id number] date: 1995 Sex: F Assigned Patient Location: [facility] Current Patient Location: Accession/Order Number: [id number] Exam Date: 03/23/2024 07:57 Report Date: 03/23/2024 08:58 At the request of: JUAN C STINSON Procedure: US OB BPP w non-stress EXAMINATION: US OB BPP w non-stress HISTORY: H/O PRE-ECLAMPSIA IN PRIOR O09.299 COMPARISON: 03/16/2024 TECHNIQUE: Ultrasound biophysical profile was performed in the radiology department. FINDINGS: BREATHING MOVEMENTS: 2 GROSS BODY MOVEMENTS: 2 TONE: 2 QUALITATIVE AMNIOTIC FLUID VOLUME: 2 PRESENTATION: CEPHALIC HEART RATE: 145.16 bpm AMNIOTIC FLUID VOLUME: 15 cm GESTATIONAL AGE: 35w0d US/US OB BPP w non-stress IMPRESSION: Total biophysical profile score: 8 Electronically authenticated by: JUDY WOMACK Date: 03/23/2024 08:58 Dictated By: Judy Womack M.D. Signed By: 03/23/24900 DD/ 0858 TD/TT: Inspector Line: JOSE HealthcareRadiology Study observation (narrative)NOMS HealthcareUS OB BPP W NON-STRESSOrdered By: Radiologist Radiology on 59-71-4700FSPP [employer] Work Phone: us OB BPP W NON-STRESSon [phone] [place] [phone] Ultrasound Report Signed Patient: AALIYAH CARVALHO MR#: [id number] : 1995 Acct:[id number] Age/Sex: 28 / F ADM Date: 03/16/24 Loc: US Attending Dr: Juan C Stinson D.O. Ordering Physician: Juan C Stinson D.O. Date of Service: 03/16/24 Procedure(s): US OB BPP w non-stress Accession Number(s): [id number] cc: Juan C Stinson D.O.; Jay Sadler M.D. [address] [address] Patient Name: AALIYAH CARVALHO MRN: [id number] date: 1995 Sex: F Assigned Patient Location: [facility] Current Patient Location: Accession/Order Number: [id number] Exam Date: 03/16/2024 07:51 Report Date: 03/16/2024 09:08 At the request of: JUAN C STINSON Procedure: US OB BPP w non-stress EXAMINATION: US OB BPP w non-stress HISTORY: History of kidney disease Z87.448 COMPARISON: Ultrasound OB growth 03/01/2024 TECHNIQUE: Ultrasound biophysical profile was performed in the radiology department. BREATHING MOVEMENTS: 2 GROSS BODY MOVEMENTS: 2 TONE: 2 QUALITATIVE AMNIOTIC FLUID VOLUME: 2 PRESENTATION: Cephalic HEART RATE: 138 bpm. AMNIOTIC FLUID VOLUME: 13.6 cm GESTATIONAL AGE: 34 weeks 0 days CONCLUSION: Total biophysical profile score 8. Electronically authenticated by: CHELSEA DELCID Date: 03/16/2024 09:08 Dictated By: Chelsea Delcid M.D. Signed By: 03/16/24910 DD/ 7 TD/TT: Inspector Line:ROBYNHRadiologmagnolia, Radiologist, MD - 03/16/2024 [place] [address] Ultrasound Report Signed Patient: AALIYAH CARVALHO MR#: [id number] : 1995 Acct:[id number] Age/Sex: 28 / F ADM Date: 03/16/24 Loc: US Attending Dr: Juan C Stinson D.O. Ordering Physician: Juan C Stinson D.O. Date of Service: 03/16/24 Procedure(s): US OB BPP w non-stress Accession Number(s): [id number] cc: Juan C Stinson D.O.; Jay Sadler M.D. The [place] [address] Patient Name: AALIYAH CARVALHO MRN: [id number] date: 1995 Sex: F Assigned Patient Location: [facility] Current Patient Location: Accession/Order Number: [id number] Exam Date: 03/16/2024 07:51 Report Date: 03/16/2024 09:08 At the request of: JUAN C STINSON Procedure: US OB BPP w non-stress EXAMINATION: US OB BPP w non-stress HISTORY: History of kidney disease Z87.448 COMPARISON: Ultrasound OB growth 03/01/2024 TECHNIQUE: Ultrasound biophysical profile was performed in the radiology department. BREATHING MOVEMENTS: 2 GROSS BODY MOVEMENTS: 2 TONE: 2 QUALITATIVE AMNIOTIC FLUID VOLUME: 2 PRESENTATION: Cephalic HEART RATE: 138 bpm. AMNIOTIC FLUID VOLUME: 13.6 cm GESTATIONAL AGE: 34 weeks 0 days CONCLUSION: Total biophysical profile score 8. Electronically authenticated by: CHELSEA DELCID Date: 03/16/2024 09:08 Dictated By: Chelsea Delcid M.D. Signed By: 03/16/24910 DD/ 7 TD/TT: Inspector Line: JOSE HealthcareRadiology Study observation (narrative)JOSE HealthcareUS OB BPP W NON-STRESSOrdered By: Radiologist Radiology on 37-74-6671[facility] Work Phone: US OB GROWTHon [phone] [place] [address] Ultrasound Report Signed Patient: AALIYAH CARVALHO MR#: [id number] : 1995 Acct:[id number] Age/Sex: 28 / F ADM Date: 03/01/24 Loc: [facility] Attending Dr: Juan C Stinson D.O. Ordering Physician: Juan C Stinson D.O. Date of Service: 03/01/24 Procedure(s): US OB growth Accession Number(s): [id number] cc: Juan C Stinson D.O.; Jay Sadler M.D. [place] [address] Patient Name: AALIYAH CARVALHO MRN: [id number] date: 1995 Sex: F Assigned Patient Location: [facility] Current Patient Location: [facility] Accession/Order Number: [id number] Exam Date: 03/01/2024 09:51 Report Date: 03/01/2024 12:43 At the request of: JUAN C STINSON Procedure: US OB growth EXAMINATION: US OB growth HISTORY: HISTORY OF KIDNEY DISEASE AND PRE-ECLASMPSIA COMPARISON: Ultrasound OB anatomy 12/16/2023 FINDINGS: Heart Rate: 126.0 bpm Number: 1.0 Position: CEPHALIC Amniotic Fluid Volume: 13.1 cm Maximum Vertical Pocket: 4.4 cm BIOMETRY: BPD: 8.4 cm cm; 33 weeks 5 days; 89% HC: 30.9 cmcm; 34 weeks 3 days ; 82% AC: 32.5 cm cm; 36 weeks 3 days; >97% FL: 6.6 cm cm; 34 weeks 0 days; 89% EFW: 2643.7 grams; >97% FL/AC: 20.3 FL/BPD: 79.0 HC/AC: 1.0 GESTATIONAL AGE: Age by EDC: 31 weeks 6 days BEBE by EDC: 04/27/2024 Age by US: 34 weeks 5 days BEBE by US: 04/07/2024 US/US OB growth IMPRESSION: 1. Single live intrauterine with growth detailed above. 2. Estimated weight is greater than 97th percentile. 3. Prominent appearance of the kidneys. Follow-up recommended. Dr. Stinson was notified of these findings by the supervisor painting shipyard at time of imaging. Electronically authenticated by: CHELSEA DELCID Date: 03/01/2024 12:43 Dictated By: Chelsea Delcid M.D. Signed By: 03/01/24 1245 DD/ 1243 TD/TT: Inspector Line:TBHRadiology, Radiologist, - 03/01/2024 [place] [address] Ultrasound Report Signed Patient: AALIYAH CARVALHO MR#: [id number] : 1995 Acct:[id number] Age/Sex: 28 / F ADM Date: 03/01/24 Loc: [facility] Attending Dr: Juan C Stinson D.O. Ordering Physician: Juan C Stinson D.O. Date of Service: 03/01/24 Procedure(s): US OB growth Accession Number(s): [id number] cc: Juan C Stinson D.O.; Jay Sadler M.D. The [place] [address] Patient Name: AALIYAH CARVALHO MRN: [id number] date: 1995 Sex: F Assigned Patient Location: [facility] Current Patient Location: [facility] Accession/Order Number: [id number] Exam Date: 03/01/2024 09:51 Report Date: 03/01/2024 12:43 At the request of: JUAN C STINSON Procedure: US OB growth EXAMINATION: US OB growth HISTORY: HISTORY OF KIDNEY DISEASE AND PRE-ECLASMPSIA COMPARISON: Ultrasound OB anatomy 12/16/2023 FINDINGS: Heart Rate: 126.0 bpm Number: 1.0 Position: CEPHALIC Amniotic Fluid Volume: 13.1 cm Maximum Vertical Pocket: 4.4 cm BIOMETRY: BPD: 8.4 cm cm; 33 weeks 5 days; 89% HC: 30.9 cmcm; 34 weeks 3 days ; 82% AC: 32.5 cm cm; 36 weeks 3 days; >97% FL: 6.6 cm cm; 34 weeks 0 days; 89% EFW: 2643.7 grams; >97% FL/AC: 20.3 FL/BPD: 79.0 HC/AC: 1.0 GESTATIONAL AGE: Age by EDC: 31 weeks 6 days BEBE by EDC: 04/27/2024 Age by US: 34 weeks 5 days BEBE by US: 04/07/2024 US/US OB growth IMPRESSION: 1. Single live intrauterine with growth detailed above. 2. Estimated weight is greater than 97th percentile. 3. Prominent appearance of the kidneys. Follow-up recommended. Dr. Stinson was notified of these findings by the supervisor painting shipyard at time of imaging. Electronically authenticated by: CHELSEA DELCID Date: 03/01/2024 12:43 Dictated By: Chelsea Delcid M.D. Signed By: 03/01/24 1248 DD/ 1243 TD/TT: Inspector Line: JOSE HealthcareRadiology Study observation (narrative)NOM HealthcareUS OB GROWTHOrdered By: Radiologist Radiology on 55-59-4623UAEBPhelps Health Work Phone: no Panel InformationOrdered By: Radiologist Radiology on 92-89-3703CZQKPhelps Health Work Phone: no Panel Informationon 70-37-6461Yddwsawzh Study observation (narrative)NOM HealthcareUS OB ANATOMYon 03-98-4686[place] [address] Ultrasound Report Signed Patient: AALIYAH CARVALHO MR#: [id number] : 1995 Acct:[id number] Age/Sex: 28 / F ADM Date: 12/16/23 Loc: [facility] Attending Dr: Juan C Stinson D.O. Ordering Physician: Juan C Stinson D.O. Date of Service: 12/16/23 Procedure(s): US OB anatomy Accession Number(s): [id number] cc: Juan C Stinson D.O.; Jay Sadler M.D. The [place] [id number] Patient Name: AALIYAH CARVALHO MRN: [facility]:[id number] date: 1995 Sex: F Assigned Patient Location: [facility] Current Patient Location: Accession/Order Number: [id number] Exam Date: 12/16/2023 14:39 Report Date: 12/17/2023 06:24 At the request of: JUAN C STINSON Procedure: US OB anatomy EXAMINATION: US OB anatomy, US OB cervical length HISTORY: ANATOMY COMPARISON: Ultrasound OB transvaginal 09/18/2023 TECHNIQUE: Transabdominal sonographic examination was performed for obstetrical and evaluation. FINDINGS: Number: 1 Heart Rate: 140.0 bpm H.B. /min Amniotic Fluid Volume: Subjectively normal Placental Location: ANTERIOR with lower margin 6.1 cm from os. Cervix Length: 4.3 cm, closed. ANATOMY: Normal Structures -cerebellum, choroid plexus, cisterna magna, lateral cerebral ventricles, orbits, midline falx, hard palate, four-chamber heart, RVOT, LVOT, stomach, kidneys, bladder, umbilical cord insertion into abdomen, three-vessel cord, cervical spine, thoracic spine, lumbar spine, sacral spine, right upper extremity, left upper extremity, right lower extremity, left lower extremity. SUBOPTIMALLY SEEN: None ABNORMALITIES: None BIOMETRY: BPD: 5.1 cm 21 weeks 3 days HC: 18.8 cm 21 weeks 1 days AC: 16.8 cm 21 weeks 6 days FL: 3.6 cm 21 weeks 4 days EFW:438.4 grams; 78% FL/AC: 21.6 FL/BPD: 71.3 HC/AC: 1.1 GESTATIONAL AGE: Age by EDC: 21 weeks 0 days BEBE by EDC: 04/27/2024 Age by current US: 21 weeks 4 days BEBE by current US: 04/23/2024 US/US OB anatomy IMPRESSION: 1. Single live intrauterine with growth detailed above. Electronically authenticated by: CHELSEA DELCID Date: 12/17/2023 06:24 Dictated By: Chelsea Delcid M.D. Signed By: 12/17/2327 DD/ 3 TD/TT: Inspector Line:TBHRadiology, Radiologist, - 12/17/[address] [address] Ultrasound Report Signed Patient: AALIYAH CARVALHO MR#: [id number] : 1995 Acct:[id number] Age/Sex: 28 / F ADM Date: 12/16/23 Loc: [facility] Attending Dr: Juan C Stinson D.O. Ordering Physician: Juan C Stinson D.O. Date of Service: 12/16/23 Procedure(s): US OB anatomy Accession Number(s): [id number] cc: Juan C Stinson D.O.; Jay Sadler M.D. The [address] [address] Patient Name: AALIYAH CARVALHO MRN: TBH:[id number] date: 1995 Sex: F Assigned Patient Location: [facility] Current Patient Location: Accession/Order Number: [id number] Exam Date: 12/16/2023 14:39 Report Date: 12/17/2023 06:24 At the request of: JUAN C STINSON Procedure: US OB anatomy EXAMINATION: US OB anatomy, US OB cervical length HISTORY: ANATOMY COMPARISON: Ultrasound OB transvaginal 09/18/2023 TECHNIQUE: Transabdominal sonographic examination was performed for obstetrical and evaluation. FINDINGS: Number: 1 Heart Rate: 140.0 bpm H.B. /min Amniotic Fluid Volume: Subjectively normal Placental Location: ANTERIOR with lower margin 6.1 cm from os. Cervix Length: 4.3 cm, closed. ANATOMY: Normal Structures -cerebellum, choroid plexus, cisterna magna, lateral cerebral ventricles, orbits, midline falx, hard palate, four-chamber heart, RVOT, LVOT, stomach, kidneys, bladder, umbilical cord insertion into abdomen, three-vessel cord, cervical spine, thoracic spine, lumbar spine, sacral spine, right upper extremity, left upper extremity, right lower extremity, left lower extremity. SUBOPTIMALLY SEEN: None ABNORMALITIES: None BIOMETRY: BPD: 5.1 cm 21 weeks 3 days HC: 18.8 cm 21 weeks 1 days AC: 16.8 cm 21 weeks 6 days FL: 3.6 cm 21 weeks 4 days EFW:438.4 grams; 78% FL/AC: 21.6 FL/BPD: 71.3 HC/AC: 1.1 GESTATIONAL AGE: Age by EDC: 21 weeks 0 days BEBE by EDC: 04/27/2024 Age by current US: 22 weeks 4 days BEBE by current US: 04/23/2024 US/US OB anatomy IMPRESSION: 1. Single live intrauterine with growth detailed above. Electronically authenticated by: CHELSEA DELCID Date: 12/17/2023 06:24 Dictated By: Chelsea Delcid M.D. Signed By: 12/17/23626 DD/ 3 TD/TT: Inspector Line: JOSE Chopra OB CERVICAL LENGTHon [id number], [place] [address] Ultrasound Report Signed Patient: AALIYAH CARVALHO MR#: [id number] : 1995 Acct:[id number] Age/Sex: 28 / F ADM Date: 12/16/23 Loc: [facility] Attending Dr: Juan C Stinson D.O. Ordering Physician: Juan C Stinson D.O. Date of Service: 12/16/23 Procedure(s): US OB cervical length Accession Number(s): [id number] cc: Juan C Stinson D.O.; Jay Sadler M.D. [place] [address] Patient Name: AALIYAH CARVALHO MRN: [id number] date: 1995 Sex: F Assigned Patient Location: [facility] Current Patient Location: Accession/Order Number: [id number] Exam Date: 12/16/2023 14:39 Report Date: 12/17/2023 06:24 At the request of: JUAN C STINSON Procedure: US OB cervical length EXAMINATION: US OB anatomy, US OB cervical length HISTORY: ANATOMY COMPARISON: Ultrasound OB transvaginal 09/18/2023 TECHNIQUE: Transabdominal sonographic examination was performed for obstetrical and evaluation. FINDINGS: Number: 1 Heart Rate: 140.0 bpm H.B. /min Amniotic Fluid Volume: Subjectively normal Placental Location: ANTERIOR with lower margin 6.1 cm from os. Cervix Length: 4.3 cm, closed. ANATOMY: Normal Structures -cerebellum, choroid plexus, cisterna magna, lateral cerebral ventricles, orbits, midline falx, hard palate, four-chamber heart, RVOT, LVOT, stomach, kidneys, bladder, umbilical cord insertion into abdomen, three-vessel cord, cervical spine, thoracic spine, lumbar spine, sacral spine, right upper extremity, left upper extremity, right lower extremity, left lower extremity. SUBOPTIMALLY SEEN: None ABNORMALITIES: None BIOMETRY: BPD: 5.1 cm 21 weeks 3 days HC: 18.8 cm 21 weeks 1 days AC: 16.8 cm 21 weeks 6 days FL: 3.6 cm 21 weeks 4 days EFW:438.4 grams; 78% FL/AC: 21.6 FL/BPD: 71.3 HC/AC: 1.1 GESTATIONAL AGE: Age by EDC: 21 weeks 0 days BEBE by EDC: 04/27/2024 Age by current US: 21 weeks 4 days BEBE by current US: 04/23/2024 US/US OB cervical length IMPRESSION: 1. Single live intrauterine with growth detailed above. Electronically authenticated by: CHELSEA DELCID Date: 12/17/2023 06:24 Dictated By: Chelsea Delcid M.D. Signed By: 12/17/23626 DD/ 3 TD/TT: Inspector Line:TBHRadiology, Radiologist, - 12/17/2023 [place] [address] Ultrasound Report Signed Patient: AALIYAH CARVALHO MR#: [id number] : 1995 Acct:[id number] Age/Sex: 28 / F ADM Date: 12/16/23 Loc: [facility] Attending Dr: Juan C Stinson D.O. Ordering Physician: Juan C Stinson D.O. Date of Service: 12/16/23 Procedure(s): US OB cervical length Accession Number(s): [id number] cc: Juan C Stinson D.O.; Jay Sadler M.D. [place] [id number] Patient Name: AALIYAH CARVALHO MRN: [id number] date: 1995 Sex: F Assigned Patient Location: [facility] Current Patient Location: Accession/Order Number: [id number] Exam Date: 12/16/2023 14:39 Report Date: 12/17/2023 06:24 At the request of: JUAN C STINSON Procedure: US OB cervical length EXAMINATION: US OB anatomy, US OB cervical length HISTORY: ANATOMY COMPARISON: Ultrasound OB transvaginal 09/18/2023 TECHNIQUE: Transabdominal sonographic examination was performed for obstetrical and evaluation. FINDINGS: Number: 1 Heart Rate: 140.0 bpm H.B. /min Amniotic Fluid Volume: Subjectively normal Placental Location: ANTERIOR with lower margin 6.1 cm from os. Cervix Length: 4.3 cm, closed. ANATOMY: Normal Structures -cerebellum, choroid plexus, cisterna magna, lateral cerebral ventricles, orbits, midline falx, hard palate, four-chamber heart, RVOT, LVOT, stomach, kidneys, bladder, umbilical cord insertion into abdomen, three-vessel cord, cervical spine, thoracic spine, lumbar spine, sacral spine, right upper extremity, left upper extremity, right lower extremity, left lower extremity. SUBOPTIMALLY SEEN: None ABNORMALITIES: None BIOMETRY: BPD: 5.1 cm 21 weeks 3 days HC: 18.8 cm 21 weeks 1 days AC: 16.8 cm 21 weeks 6 days FL: 3.6 cm 21 weeks 4 days EFW:438.4 grams; 78% FL/AC: 21.6 FL/BPD: 71.3 HC/AC: 1.1 GESTATIONAL AGE: Age by EDC: 21 weeks 0 days BEBE by EDC: 04/27/2024 Age by current US: 21 weeks 4 days BEBE by current US: 04/23/2024 US/US OB cervical length IMPRESSION: 1. Single live intrauterine with growth detailed above. Electronically authenticated by: CHELSEA DELCID Date: 12/17/2023 06:24 Dictated By: Chelsea Delcid M.D. Signed By: 12/17/23626 DD/ 3 TD/TT: Inspector Line: JOSE Chopra OB TRANSVAGINALojamin [id number] [address] Ultrasound Report Signed Patient: AALIYAH CARVALHO MR#: [id number] : 1995 Acct:[id number] Age/Sex: 28 / F ADM Date: 09/18/23 Loc: US Attending Dr: Juan C Stinson D.O. Ordering Physician: Juan C Stinson D.O. Date of Service: 09/18/23 Procedure(s): US OB transvaginal Accession Number(s): [id number] cc: Juan C Stinson D.O.; Jay Sadler M.D. [place] [id number] Patient Name: AALIYAH CARVALHO MRN: [id number] date: 1995 Sex: F Assigned Patient Location: US Current Patient Location: Accession/Order Number: [id number] Exam Date: 09/18/2023 08:33 Report Date: 09/19/2023 00:15 At the request of: JUAN C STINSON Procedure: US OB transvaginal EXAMINATION: US OB transvaginal HISTORY: MISSED MENSES COMPARISON: No relevant comparison available. FINDINGS: GESTATIONAL SAC: Present and normal appearing. YOLK SAC: Present and normal appearing. POLE: Present and normal appearing. CARDIAC: Present. UTERUS: Normal size and appearance. OVARIES: Right: Normal. Left: Normal. CERVIX: 4.6 cm in length and closed. CUL-DE-SAC: Trace amount of free fluid. OTHER: None. AGE BY LMP: 11 weeks 2 days BEBE BY LMP: 04/06/2024 AGE BY US CRL: 8 weeks 2 days BEBE BY US CRL: 04/27/2024 US/US OB transvaginal IMPRESSION: 1. Single live intrauterine . Electronically authenticated by: CHELSEA DELCID Date: 09/19/2023 00:15 Dictated By: Chelsea Delcid M.D. Signed By: 09/19/23 0018 DD/ 0015 TD/TT: Inspector Line:TBHRadiology, Radiologist, - 09/19/2023 [place] [address] Ultrasound Report Signed Patient: AALIYAH CARVALHO MR#: [id number] : 1995 Acct:[id number] Age/Sex: 28 / F ADM Date: 09/18/23 Loc: US Attending Dr: Juan C Stinson D.O. Ordering Physician: Juan C Stinson D.O. Date of Service: 09/18/23 Procedure(s): US OB transvaginal Accession Number(s): [id number] cc: Juan C Stinson D.O.; Jay Sadler M.D. [place] [address] Patient Name: AALIYAH CARVALHO MRN: [id number] date: 1995 Sex: F Assigned Patient Location: US Current Patient Location: Accession/Order Number: [id number] Exam Date: 09/18/2023 08:33 Report Date: 09/19/2023 00:15 At the request of: JUAN C STINSON Procedure: US OB transvaginal EXAMINATION: US OB transvaginal HISTORY: MISSED MENSES COMPARISON: No relevant comparison available. FINDINGS: GESTATIONAL SAC: Present and normal appearing. YOLK SAC: Present and normal appearing. POLE: Present and normal appearing. CARDIAC: Present. UTERUS: Normal size and appearance. OVARIES: Right: Normal. Left: Normal. CERVIX: 4.6 cm in length and closed. CUL-DE-SAC: Trace amount of free fluid. OTHER: None. AGE BY LMP: 11 weeks 2 days BEBE BY LMP: 04/06/2024 AGE BY US CRL: 8 weeks 2 days BEBE BY US CRL: 04/27/2024 US/US OB transvaginal IMPRESSION: 1. Single live intrauterine . Electronically authenticated by: CHELSEA DELCID Date: 09/19/2023 00:15 Dictated By: Chelsea Delcid M.D. Signed By: 09/19/23 0018 DD/ 001 TD/TT: Inspector Line: JOSE HealthcareRadiology Study observation (narrative)[facility] HealthcareUS OB TRANSVAGINALOrdered By: Radiologist Radiology on [id number] Work Phone: pap ACOG PANEL 2: 21 to 29on 12-24-2022..NormalThe [facility] Medical CenterComment on above:Performed By: #### [id number] #### [facility] [address] [place] [address] Dr. Narendra Thorne Gdln ACOG Xxggcru05-64AjrnyfCkzProMedica Toledo HospitalComment on above:Performed By: #### [id number] #### [facility] [address] [place] [address] Dr. Narendra FranksDIAGNOSIS:CommentAultman Hospital on above: Result Comment: NEGATIVE FOR INTRAEPITHELIAL LESION OR MALIGNANCY.Performed By: #### [id number] #### [facility] [address] [place] [address] Dr. Narendra FranksMethodology:CommentNoSt. Charles Hospital on above: Result Comment: This liquid based ThinPrep(R) pap test was screened with the use of an image guided system.Performed By: #### [id number] #### [place] [address] [address] Narendra FranksNote:CommentAultman Hospital on above:Result Comment: The Pap smear is a screening test designed to aid in the detection of premalignant and malignant conditions of the uterine cervix. It is not a diagnostic procedure and should not be used as the sole means of detecting cervical cancer. Both false-positive and false-negative reports do occur. .Performed By: #### [id number] #### [facility] [address] [place] [address] Dr. Narendra FranksPerformed by:CommentAultman Hospital on above: Result Comment: Yao Smith Exhaust Machine Operator (ASCP)Performed By: #### [id number] #### [facility] [address] [place] [address] Dr. Narendra FranksReflex Criteria:CommentMount St. Mary HospitalComaspirus iron river hospital on above:Result Comment: The HPV DNA reflex criteria were not met with this specimen result therefore, no HPV testing was performed. .Performed By: #### [id number] #### [facility] [address] [place] [address] Dr. Narendra FranksSpecimejamin adequacy:CommentAultman Hospital on above:Result Comment: Satisfactory for evaluation. Endocervical and/or squamous metaplastic cells (endocervical component) are present.Performed By: #### [id number] #### [facility] [address] [place] [address] Dr. Narendra Mcintyre AUTO DIFFon 32-29-8490YXSK #0.0 103/ulNormal0.0-0.1Holzer HospitalComment on above:Performed By: #### CBC #### [facility] [address] [place] [address] Dr. Narendra FranksBasophils/100 WBC (Bld)0.4 %Normal0.2-2.0[facility] Comment on above:Performed By: #### CBC #### [facility] [address] [place] [address] Dr. Narendra Mckeon #0.3 103/ulNormal0.0-0.7The [facility] Medical CenterComaspirus iron river hospital on above: Performed By: #### CBC #### [facility] [address] [place] [address] Dr. Narendra Luisosinophils/100 WBC (Bld)3.5 %Normal0.9-7.0[facility] Comment on above:Performed By: #### CBC #### [facility] [address] [place] [address] Dr. Narendra Luisrythrocyte distribution width (RBC) [Ratio]14.1 %Oaggbz77.0-15.0 [facility] HospitalComment on above:Performed By: #### CBC #### [facility] [address] [place] [address] Dr. Narendra FranksHematocrit (Bld) [Volume fraction]38.2 %Crvifw97.0-48.0The [facility] CenterComment on above:Performed By: #### CBC #### [facility] [address] [place] [address] Dr. Narendra FranksHemoglobin (Bld) [Mass/Vol]12.6 g/gKUaibff51.0-16.0The [facility] CenterComment on above:Performed By: #### CBC #### [facility] [address] [place] [address] Dr. Narendra Magana #0.01 10e3/ulNormal0.00-0.03The [facility] CenterComment on above:Performed By: #### CBC #### [facility] [address] [place] [address] Dr. Narendra Magana %0.1 %Normal0.0-0.5The [facility] CenterComment on above: Performed By: #### CBC #### [facility] [address] [place] [address] Dr. Narendra Hogan #2.4 103/ulNormal1.2-3.8The [facility] CenterComment on above:Performed By: #### CBC #### [facility] [address] [place] [address] Dr. Narendra Williamhocytes/100 WBC (Bld)30.4 %Ziwuco51.5-60.0The [facility] CenterComment on above:Performed By: #### CBC #### [facility] [address] [place] [address] Dr. Narendra AguilarUAL DIFF REQNONormalThe [facility] CenterComment on above: Performed By: #### CBC #### [facility] [address] [place] [address] Dr. Narendra Bhatia (RBC) [Entitic mass]30.4 epYzhkzp88.7-34.0The [facility] CenterComment on above:Performed By: #### CBC #### [facility] [address] [place] [address] Dr. Narendra Keller (RBC) [Mass/Vol]33.0 g/tCHhctod81.9-35.2The [facility] CenterComment on above:Performed By: #### CBC #### [facility] [address] [place] [address] Dr. Narendra KellerV (RBC) [Entitic vol]92.0 aDWtjozk97.0-99.0The [facility] CenterComment on above:Performed By: #### CBC #### [facility] [address] [place] [address] Dr. Narendra Rivera #0.5 103/ulNormal0.3-0.8The [facility] CenterComment on above:Performed By: #### CBC #### [facility] [address] [place] [address] Dr. Narendra Adamsocytes/100 WBC (Bld)6.3 %Normal1.7-12.0The [facility] Comment on above:Performed By: #### CBC #### [facility] [address] [place] [address] Dr. Narendra Kinney #4.7 103/ulNormal1.4-6.5The [facility] CenterComment on above:Performed By: #### CBC #### [facility] [address] [place] [address] Dr. Narendra Mcgeeutrophils/100 WBC (Bld)59.3 %Tfxrzo75.0-75.0The [facility] CenterComment on above:Performed By: #### CBC #### [facility] [address] [place] [address] Dr. Narendra Kirkpatricklet mean volume (Bld) [Entitic vol]10.5 fLNormal9.5-13.5The [facility] CenterComment on above:Performed By: #### CBC #### [facility] [address] [place] [address] Dr. Narendra CarlinT272 103/iiLfrcaq533-558Pjz [facility] CenterComment on above: Performed By: #### CBC #### [facility] [address] [place] [address] Dr. Narendra SalmonC4.15 106/ulCritically low4.20-5.40The [facility] CenterComment on above:Performed By: #### CBC #### [facility] [address] [place] [address] [address] Narendra FranksWBC8.0 103/ulNormal4.0-11.0The [facility] CenterComment on above: Performed By: #### CBC #### [facility] [address] [place] [address] Dr. Narendra FranksCRPon 04-08-1794ZOF [Mass/Vol]mg/LNormal<=1.0The [facility] CenterComment on above:Performed By: #### CRP #### [facility] [address] [place] [address] Dr. Narendra FranksCT CSPINE WO CONon 26-93-9135TA CSPINE WO CONINDICATION: 26 years old; Female. Headache and ear [...] Electronically authenticated by: YESSENIA HICKEY Date: 2022-06-26 21:58NormAkron Children's HospitalMONOon 74-52-4487Fgidqmolr (Bld) [#/Vol]NegativeNormalNEGATIVE The [facility] CenterComment on above:Performed By: #### MONO, PREG #### [facility] [address] [place] [address] [address] Narendra FranksPREG HCG QUALon 41-64-4759SMYRLAICM, QUALNegativeNormalNEGATIVE The [facility] CenterComment on above:Performed By: #### MONO, PREG #### [facility] [address] [place] [address] [address] Narendra FranksPROF CHEM 8 (BAS METB)on 10-46-6283Ufzqs gap [Moles/Vol]9.8 mmol/LNormalThe [facility] Ontario Hospitalment on above:Performed By: #### BMP #### [facility] [address] [place] [address] [address] Narendra FranksCalcium [Mass/Vol]8.5 mg/dLNormal8.5-10.1[facility] Comment on above:Performed By: #### BMP #### [facility] [address] [place] [address] [address] Narendra FranksChloride [Moles/Vol]104 mmol/ATfblpq40-129VotHolzer Hospital Comment on above:Performed By: #### BMP #### [facility] [address] [place] [address] [address] Narendra FranksCO2 [Moles/Vol]28.0 mmol/XErqyut03.0-32.0[facility] Comment on above:Performed By: #### BMP #### [facility] [address] [place] [address] Dr. Narendra FranksCreatinine [Mass/Vol]0.77 mg/dLNormal0.55-1.02[facility] HospitalComment on above:Performed By: #### BMP #### [facility] [address] [place] [address] Dr. Narendra LuisGFR-AF MONTSERRATIAN>60Normal>=60Holzer HospitalComment on above:Performed By: #### BMP #### [facility] [address] [place] [address] Dr. Narendra LuisGFR-NON AF MONTSERRATIAN>60Normal>=60Holzer HospitalComment on above:Performed By: #### BMP #### [facility] [address] [place] [address] [address] Narendra FranksGlucose [Mass/Vol]90 mg/hZUopgvg51-351DdtHolzer Hospital Comment on above:Performed By: #### BMP #### [facility] [address] [place] [address] Dr. Narendra FranksPotassium [Moles/Vol]3.8 mmol/LNormal3.5-5.1The [facility] Comment on above:Performed By: #### BMP #### [facility] [address] [place] [address] Dr. Narendra FranksSodium [Moles/Vol]138 mmol/FUyfrhf599-163SmlHolzer Hospital Comment on above:Performed By: #### BMP #### [facility] [address] [place] [address] [address] Narendra Jerez nitrogen [Mass/Vol]15.0 mg/dLNormal7.0-18.0The [facility] CenterComment on above:Performed By: #### BMP #### [facility] [address] [place] [address] [address] Narendra FranksUrea nitrogen/Creatinine [Mass ratio]19.5 mg/mgNormalThe [facility] CenterComment on above:Performed By: #### BMP #### [facility] [address] [place] [address] [address] Narendra Mckinley RATE WESTERGRENon 22-80-2631JLG RATE25 mm/hrCritically high <=20The [facility] CenterComment on above:Performed By: #### SEDR #### [facility] [address] [place] [address] [address] Narendra Robb WITH REFLEX TO ENAon 63-77-5700PHN WITH REFLEX TO ENANegative NormalNEGATIVEVirtua VoorheesComment on above:Performed By: #### CYNTHIA #### [facility] [address] [place], [place] [address]W-[id number] PROTEINon 76-07-0309OTK [Mass/Vol]mg/LNormalVirtua VoorheesComment on above:Result Comment: REF VALUE < 1.00Performed By: #### CRP #### [facility] [address] [place], [place] [address]MMBEQUUCWY ANTIBODYon 76-54-8112OIJAZYNZTO ANTIBODY<1NormalVirtua VoorheesComment on above:Result Comment: THE TEST FOR ANTIBODIES SPECIFIC FOR CYCLIC CITRULLINATED PEPTIDE (CCP) HAS SHOWN TO BE VALUABLE IN THE DIAGNOSIS OF RHEUMATOID ARTHRITIS. THE DIAGNOSTIC VALUE OF ANTIBODIES TO CCP IN JUVENILE RHEUMATOID ARTHRITIS PATIENTS HAS NOT BEEN DETERMINED. ANTIBODIES TO CENTROMERE OR SS-A AND MYELOMA IGG MAY BE REACTIVE IN THIS ASSAY. REF VALUES NEGATIVE < 3 U/ML POSITIVE >=3 U/MLPerformed By: #### CITAB #### [facility] [address] [place], [place] [id number] TYPINGon 22-83-4904EFD-B27 TYPINGNegativeNormalUH Saint Clare'S Hospital At SussexComment on above:Result Comment: This test was developed without FDA review. The test performance characteristics were defined and validated by the [facility] Department of Pathology, under the accreditation guidelines of [facility].Performed By: #### HLB27 #### [facility] [address] [place], [place] [address]LOPJKAEGQF FACTORon 32-66-7660ASAJUGSRUT FACTOR<19Xtdeqt2 - 15[facility]ua VoorheesComment on above:Performed By: #### RF #### [facility] [address] [place], [place] [address]NNMYXVZLAJJLJ RATE, ERYTHROCYTEon 91-59-8975MQCVBRYWUTTAY RATE, ERYTHROCYTE2 mm/hNormal0 - 20V[facility]ua VoorheesComment on above: Performed By: #### ESRWS #### [facility] [address] [place] [address] Vital Signs Date TimeVital SignValuePerforming TpxgowuyqBbwvglsg10-78-2703 09:33-0400Body ydrutb011.2 cmAnthony Cainher DPM Work Phone: [phone]08-11-2025 09:33-0400Body mass index (BMI) [Ratio]32.89 kg/p2Vggwkwt Rusher DPM Work Phone: [phone]08-11-2025 09:33-0400Body pzjueb12.25 kgAnthdaniel Rusher DPM Work Phone: [phone]01-23-2025 15:33-0500Diastolic blood mm[Hg]Cynthia Caro MD Work Phone: [facility]01-23-2025 15:33-0500Heart rate 91 /minCynthia Caro MD Work Phone: [facility]01-23-2025 15:33-0500Systolic blood uuahewua734 mm[Hg]Cynthia Caor MD Work Phone: [facility]01-23-2025 15:31-0500Body eagkaf034.2 Luis Caro MD Work Phone: [facility] [employer] Vqivsb19-91-7243 15:31-0500Body mass index (BMI) [Ratio]33.14 kg/m8IlhjhCynthia Caro MD Work Phone: [facility] [employer] Azkpgd49-70-2511 15:31-0500Body unsppu20.98 kgCynthia Caro MD Work Phone: [facility]10-17-2024 10:09-0400Diastolic blood tiienixw884 mm[Hg]Cynthia Caro MD Work Phone: [facility]10-17-2024 10:09-0400Heart rate 83 /minCynthia Caro MD Work Phone: [facility]10-17-2024 10:09-0400Systolic blood gejhhujr744 mm[Hg]Cynthia Caro MD Work Phone: [facility]10-17-2024 10:06-0400Body ulljgw104.2 Luis Caro MD Work Phone: [facility] [employer] Eurdkk31-86-7596 10:06-0400Body mass index (BMI) [Ratio]32.69 kg/p0OwwxsCynthia Caro MD Work Phone: [facility] [employer] Laknhv10-34-8731 10:06-0400Body qqeuhg31.67 kgCynthia Caro MD Work Phone: [facility]10-08-2024 11:10-0400Body mass index (BMI) [Ratio]32.58 kg/m2Sharon STEVENS Work Phone: [facility] HealthTvcshvgfvr69-42-3413 11:10-0400Body havapt04.35 kgSharon STEVENS Work Phone: [facility] HealthQexmjucrta35-39-5261 11:10-0400Diastolic blood mmmzbpem37 mm[Hg]Sharon STEVENS Work Phone: [phone] [place], [place] [address]Jsgyyxmxty53-65-6206 11:10-0400Systolic blood qfmpseyu042 mm[Hg]Sharon Yo PA Work Phone: [facility] HealthWhdusxmgjy23-79-1883 11:30-0400Body wzquql082.2 Rachell Yo PA Work Phone: [facility] HealthYfcrdfnzks05-27-7114 11:30-0400Body mass index (BMI) [Ratio]32.26 kg/m2Sharon Yo PA Work Phone: [facility] HealthLwrnbrhtse91-04-0658 11:30-0400Body oelihx19.44 kgSharon Yo PA Work Phone: [facility] HealthDbyvxhwlbx91-94-5812 11:30-0400Diastolic blood ddzwhhfy91 mm[Hg]Sharon Yo PA Work Phone: [facility] HealthWysjniwcwb43-22-9255 11:30-0400Systolic blood rndunysb871 mm[Hg]Sharon Yo PA Work Phone: [facility] HealthRlhvahddcu02-03-8268 09:05-0400Body .18 Matt Claros Other [employer] Other 09-09-2023 09:05-0400Body mass index (BMI) [Ratio] 29.19 kg/v6IpvelValeria Claros Other [employer] Other 09-09-2023 09:05-0400Body pvywjvlzeyt95.5 [degF]Valeria Claros Other [employer] Other 09-09-2023 09:05-0400Body zsyjlj88.55 kgValeria Claros Other noAdTapsy Other 09-09-2023 09:05-0400Diastolic blood xfslybun80 mm[Hg] Valeria Claros Other [place] Other 09-09-2023 09:05-0400Respiratory rate18 /minValeria Claros Other [facility] Other 09-09-2023 09:05-0697HkP7% (BldA) [Mass fraction]98 % Valeria Claros Other [place] [facility] Other 09-09-2023 09:05-0400Systolic blood rwtnqnyn375 mm[Hg] Valeria Claros Other [facility] Other Encounters Encounter DateEncounter TypeCare ProviderFacilityStart: 07-26-2025 End: 55-36-8344brtuhkujvtSivlckg R NILLFacility:[facility]smouthevueStart: 07-26-2025 End: 40-38-0565Stjovrw encounter procedureMichael R NILL [phone]-BztwgK[facility] [place] Start: 92-73-1001uthmycyrbmHlnwfjg NILLFacility:[facility] PortsmouthKrissytart: 05-08-2025 End: 69-83-7819Mdyzkv flowsheetAnthony S Rusher DPM Work Phone: noGordon [facility] PodiatryStart: 05-08-2025 End: 32-52-1509Fyzoay flowsheetAnthony S Rusher DPM Work Phone: noSignpath [employer] Linden PodiatryStart: 05-08-2025 End: 93-30-7810Kwqfea outpatient new 30 minutesAnthony S Rusher DPM Work Phone: noGordon [facility] Hospital PodiatryComment on above:Valgus deformity, not elsewhere classified, left ankle (Primary Dx); Posterior tibial tendinitis of left lower extremity; Posterior tibial tendinitis of right lower extremity; Instability of left ankle joint; Equinus contracture of left ankle; Difficulty walking; Sinus tarsi syndrome of left footStart: 05-08-2025 End: 22-83-9613qiloohudthDSEPUXJ S RUSHERNot AvailableStart: 10-20-2024 End: 62-91-8472Siudjw outpatient visit 25 minutesCynthia Caro MD Work Phone: [facility] Comment on above:Autosomal dominant polycystic kidney disease (Primary Dx)Start: 10-19-2024 End: 70-49-4114Prxphlmaf encounterScanning Provider [facility] CenterN [facility] CenteroStart: 10-14-2024 End: 61-35-8604Zbfchnqvu encounterBropearl Tena [facility] CenteroStart: 10-11-2024 End: 73-68-9751lvwisftqacGHOBRVi CAROCleveland Clinic [facility] HospitalStart: 07-19-2024 End: 93-53-9117cyaqkzsdbiHNUXTRyan CAROCleveland Clinic [facility] Hospital HospitalStart: 07-14-2024 End: 13-88-2222Dtknxm outpatient new 45 Rosalba Caro MD Work Phone: [facility] Comment on above:Autosomal dominant polycystic kidney disease (Primary Dx); PKD (polycystic kidney disease)Start: 07-13-2024 End: 23-97-0930cluegiohzsLMYCNVi CAROCleveland Clinic [facility] HospitalStart: 07-06-2024 End: 79-43-9893Rcggcdygh encounterHuma eTna [facility] CenteroStart: 07-05-2024 End: 86-92-0467Fupsea Diego STEVENS Work Phone: noMS BCP OBStart: 07-05-2024 End: 21-54-7108Yrmubj Diego STEVENS Work Phone: [facility] BCP OBStart: 07-05-2024 End: 80-65-0907Kvgvvytex Result Justino STEVENS Work Phone: NOHJ External Department UnsolicitedStart: 07-05-2024 End: 73-01-8249Sbgjqhr encounter procedureSharon STEVENS Work Phone: NOTF HealthcareStart: 07-05-2024 End: 63-35-8685Aenxkomt preventive med est patient 18-39 yrsSharon STEVENS Work Phone: noms BCP OBComment on above:Well woman exam with routine gynecological examStart: 07-05-2024 End: 57-21-2904haspdmygaxESZ RAMEYNot AvailableStart: 05-17-2024 End: 22-75-7369ngbawpnrqjKHD RAMEYNot AvailableStart: 05-17-2024 End: 21-01-7136Ntpxvutuaq care visitSharon STEVENS Work Phone: noms BCP OBComment on above:6 weeks follow- up (Primary Dx)Start: 04-21-2024 End: 22-20-4181Qnpyjf Kelvin Caro MD Work Phone: [facility] Comment on above:PKD (polycystic kidney disease) (Primary Dx)Start: 04-18-2024 End: 84-32-1063Nugzgujys encounterScanning Provider ExternalPHN [facility]–Tuskegeetart: 03-30-2024 End: 37-82-5655Tplofxjwm Result EncounterCorey Shantell DO Work Phone: noms External Department UnsolicitedStart: 03-30-2024 End: 57-99-3785Oiyczsmxz Result EncounterCorey Shantell DO Work Phone: noms External Department UnsolicitedStart: 03-23-2024 End: 89-13-9913Vpyuahuje Result EncounterCorey Shantell DO Work Phone: noms External Department UnsolicitedStart: 03-23-2024 End: 94-62-3714Zzonpuopp Result EncounterCorey Shantell DO Work Phone: noms External Department UnsolicitedStart: 03-16-2024 End: 44-52-2454Rqebagidp Result EncounterCorey Shantell DO Work Phone: noms External Department UnsolicitedStart: 03-16-2024 End: 87-29-8471Jjjxaqelo Result EncounterCorey Shantell DO Work Phone: noms External Department UnsolicitedStart: 03-01-2024 End: 83-76-1651Xpjbdcrmb Result EncounterCorey Shantell DO Work Phone: noms External Department UnsolicitedStart: 03-01-2024 End: 42-11-5380Skrkrylpt Result EncounterCorey Shantell DO Work Phone: noms External Department UnsolicitedStart: 12-17-2023 End: 50-54-3205Iwdmlefae Result EncounterCorey Shantell DO Work Phone: noms External Department UnsolicitedStart: 12-17-2023 End: 00-53-2604Rbldnwhvb Result EncounterCorey Shantell DO Work Phone: noms External Department UnsolicitedStart: 09-19-2023 End: 12-67-4583Mlxyobput Result EncounterCorey Shantell DO Work Phone: noms External Department UnsolicitedStart: 09-19-2023 End: 00-94-7081Jibfjpjrm Result EncounterCorey Shantell DO Work Phone: noms External Department UnsolicitedStart: 06-06-2023 End: 84-69-8473azfvsixafnHchry Keller Other [facility] [employer] Other Start: 54-79-3867Hczhqs outpatient new 20 minutesAmber HarlanFPG Urgent Care ClydeStart: 12-17-2022 End: 34-07-7459nfkuudshckOU JUAN C SHANTELL .Facility:B3Zhihi: 06-26-2022 End: 77-45-2872mnolpmidclVA NONE LISTED REQUESTFacility:H1 Procedures DateProcedureProcedure DetailPerforming ClinicianStart: 05-08-2025 End: 18-11-3655Aytkcaedod examination ankle 2 viewsAnthony S Rusher DPM Work Phone: Start: 32-91-2319Zmyzrzvrkm examination ankle 2 views Db Crockett DPM Work Phone: Start: 83-32-3342FGB,APTIMA HPV,AGE GDLNAmy Alex PA Work Phone: Start: 10-84-5355Rmmishgikcs observation [Identifier] in Cervix by Cyto Nasim Caro MD Work Phone: Start: 48-12-8402BEN URINE T PROTEIN CREAT RATIOCorey Shantell DO Work Phone: Start: 40-77-2617VPU BUNCorey Shantell DO Work Phone: Start: 02-00-8092YSY CBC WITH AUTO DIFFCorey Shantell DO Work Phone: Start: 25-03-5814FEE URIC ACIDCorey Shantell DO Work Phone: Start: 07-88-6802DVH ALTCorey Shantell DO Work Phone: Start: 48-25-3085XWX APTTCorey Shantell DO Work Phone: Start: 92-18-4962OYM ASTCorey Shantell DO Work Phone: Start: 53-58-8982OHQR FIBRINOGENCorey Shantell DO Work Phone: Start: 72-76-7356TYXTJS PROTHROMBIN TIME INR W/O COUM Juan C Shantell DO Work Phone: Start: 98-72-4081YDI CREATININECorey Shantell DO Work Phone: Start: 61-22-2055QER DRUG SCREEN RAPID (URINE)Juan C Shantell DO Work Phone: Start: 25-36-4528LO OB GROWTHCorey Shantell DO Work Phone: Start: 89-86-3266RB OB BPP W NON-STRESSCorey Shantell DO Work Phone: Start: 04-26-7991GZ OB BPP W NON-STRESSCorey Shantell DO Work Phone: Start: 03-28-3808XW OB BPP W NON-STRESSCorey Shantell DO Work Phone: Start: 21-49-7437BA OB GROWTHCorey Shantell DO Work Phone: Start: 27-32-4829FQ OB ANATOMYCorey Shantell DO Work Phone: Start: 45-86-8953SX OB CERVICAL LENGTHCorey Shantell DO Work Phone: Start: 01-46-5986KG OB TRANSVAGINALCorey Shantell DO Work Phone: Start: 05-11-9380DazsytrnznbSgehczt NILL Start: 78-97-5354IhyhwbttjokrwcrbuuqyorrztySjfmorx NILL Excision of lipoma of backMichael NILL LaparoscopyMichael NILL Tonsillectomy and adenoidectomyMichael NILL Plan of Treatment DateCare ActivityDetailAuthorStart: 00-08-0997GVpD,Tdap and Td Vaccines (2 - Tdap)DTaP,Tdap and Td Vaccines (2 - Tdap)[facility] SystemStart: 21-16-3258Aoqevmxvy for malignant neoplasm of cervixPap SmearProMedica TapImmune SystemStart: 08-09-2025 End: 91-61-1575Njkixoe encounter /12/2025 3:00 PM EST Procedure Visit [facility] [address] [place] [id number] Sharon Yo PA [address] [place] [address] [facility]kins OBGYNStart: 81-71-1181Xibzd BMI ScreeningAdult BMI ScreeningNorthern Regional Hospitaltart: 05-08-2025 End: 50-63-3027Qlkkraqhrbwh / ancillary services managementNOGordon [facility] Hospital [facility] Start: 05-08-2025 End: 88-13-9947Mruzekh encounter /11/2025 9:30 AM EDT Office Visit [facility] [address] [place] [address] Db Crockett, DPSamuel [address] [place] [address] ArrivedNOGordon Memorial Hospital PodiatryComment on above:ArrivedStart: 04-14-2025 End: 89-44-3445Bvkfn metabolic 2000 panel - Serum or PlasmaBasic Metabolic Panel Lab Routine Autosomal dominant polycystic kidney disease Expected: 04/14/2025 (Approximate), Expires: 10/15/2025PHN [facility] Work Phone: Comment on above:Expected: 04/14/2025 (Approximate), Expires: 10/15/2025Start: 04-14-2025 End: 36-34-1769DAU panel - Blood by Automated countCBC without diff Lab Routine Autosomal dominant polycystic kidney disease Expected: 04/14/2025 (Approximate), Expires: 10/15/2025ProUniversity [facility] SystemComment on above:Expected: 04/14/2025 (Approximate), Expires: 10/15/2025Start: 04-14-2025 End: 14-38-9182Pbqqtypok [Mass/volume] in Serum or PlasmaMagnesium Lab Routine Autosomal dominant polycystic kidney disease Expected: 04/14/2025 (Approximate), Expires: 10/15/2025ProUniversity [facility] SystemComment on above:Expected: 04/14/2025 (Approximate), Expires: 10/15/2025Start: 04-14-2025 End: 91-05-8071Kmujhmpcouk Hormone, intactParathyroid Hormone, intact Lab Routine Autosomal dominant polycystic kidney disease Expected: 04/14/2025 (Approximate), Expires: 10/15/2025[facility] SystemComment on above: Expected: 04/14/2025 (Approximate), Expires: 10/15/2025Start: 04-14-2025 End: 72-55-2254Mrkospltm [Mass/volume] in Serum or PlasmaPhosphorus Lab Routine Autosomal dominant polycystic kidney disease Expected: 04/14/2025 (Approximate), Expires: 10/15/2025ProUniversity [facility] SystemComment on above:Expected: 04/14/2025 (Approximate), Expires: 10/15/2025Start: 04-14-2025 End: 89-33-2859Itmtsxs creat ratioProtein creat ratio Lab Routine Autosomal dominant polycystic kidney disease Expected: 04/14/2025 (Approximate), Expires: 10/15/2025ProUniversity [facility] SystemComment on above:Expected: 04/14/2025 (Approximate), Expires: 10/15/2025Start: 04-14-2025 End: 68-08-6854Krmunic D 25 hydroxyVitamin D 25 hydroxy Lab Routine Autosomal dominant polycystic kidney disease Expected: 04/14/2025 (Approximate), Expires: 10/15/2025[facility] SystemComment on above:Expected: 04/14/2025 (Approximate), Expires: 10/15/2025Start: 10-20-2024 End: 80-94-0852Arsivmw encounter ziaebtdts72/23/2025 3:30 PM EST Office Visit [facility] [address] [place] [id number] Cynthia Caro MD [address] [place] [address] [facility]–Tuskegeetart: 09-08-2024 End: 89-53-6674Rrzbr metabolic 2000 panel - Serum or PlasmaBasic Metabolic Panel Lab Routine Autosomal dominant polycystic kidney disease Expected: 09/08/2024, Expires: 07/09/2025[facility] WestComment on above:Expected: 09/08/2024, Expires: 07/09/2025Start: 09-08-2024 End: 81-17-3361IZH panel - Blood by Automated countCBC without diff Lab Routine Autosomal dominant polycystic kidney disease Expected: 09/08/2024, Expires: 07/09/2025[facility] - WestComment on above:Expected: 09/08/2024, Expires: 07/09/2025Start: 09-08-2024 End: 82-49-2051Xkdsguerf [Mass/volume] in Serum or PlasmaMagnesium Lab Routine Autosomal dominant polycystic kidney disease Expected: 09/08/2024, Expires: [facility] WestComment on above:Expected: 09/08/2024, Expires: 07/09/2025Start: 09-08-2024 End: 22-21-7780Qnfmmfybzif Hormone, intactParathyroid Hormone, intact Lab Routine Autosomal dominant polycystic kidney disease Expected: 09/08/2024, Expires: 07/09/2025[facility] WestComment on above:Expected: 09/08/2024, Expires: 07/09/2025Start: 09-08-2024 End: 96-01-8591Qrgmnkggh [Mass/volume] in Serum or PlasmaPhosphorus Lab Routine Autosomal dominant polycystic kidney disease Expected: 09/08/2024, Expires: 1 [facility] WestComment on above:Expected: 09/08/2024, Expires: 07/09/2025Start: 09-08-2024 End: 99-84-9633Xmzbhwy creat ratioProtein creat ratio Lab Routine Autosomal dominant polycystic kidney disease Expected: 09/08/2024, Expires: 07/09/2025 [facility] WestComment on above:Expected: 09/08/2024, Expires: 07/09/2025Start: 09-08-2024 End: 72-29-3564Zmglqtr D 25 hydroxyVitamin D 25 hydroxy Lab Routine Autosomal dominant polycystic kidney disease Expected: 09/08/2024,Expires: 07/09/2025 [facility] SystemComment on above:Expected: 09/08/2024, Expires: 07/09/2025Start: 07-21-2024 End: 46-62-0365UMR Abdominal vessels WO contrastMRA abdomen without contrast Imaging Routine Autosomal dominant polycystic kidney disease Expected:07/21/2024 (Approximate), Expires: 07/14/2025[facility] SystemComment on above: Expected: 07/21/2024 (Approximate), Expires: 07/14/2025Start: 07-16-2024 End: 06-22-3827NEW Screen w/ ReflexANA Screen w/ Reflex Lab Routine Autosomal dominant polycystic kidney disease Expected: 07/16/2024 (Approximate), Expires: 07/09/2025[facility] SystemComment on above:Expected: 07/16/2024 (Approximate), Expires: 07/09/2025Start: 07-16-2024 End: 01-46-0861Dtqo light chainsFree light chains Lab Routine Autosomal dominant polycystic kidney disease Expected: 07/16/2024 (Approximate), Expires: 07/09/2025[facility] SystemComment on above:Expected: 07/16/2024 (Approximate), Expires: 07/09/2025Start: 07-16-2024 End: 45-18-5443Lvkyobjruf basement membrane IgG ABGlomerular basement membrane IgG AB Lab Routine Autosomal dominant polycystic kidney disease Expected: 07/16/2024 (Approximate), Expires: 07/09/2025[facility] SystemComment on above:Expected: 07/16/2024 (Approximate), Expires: 07/09/2025Start: 07-16-2024 End: 98-24-0290Tyxbgntnz B core antibody, totalHepatitis B core antibody, total Lab Routine Autosomal dominant polycystic kidney disease Expected:07/16/2024 (Approximate), Expires: 07/09/2025[facility] SystemComment on above: Expected: 07/16/2024 (Approximate), Expires: 07/09/2025Start: 07-16-2024 End: 59-71-4340Uriellcrh B Surface Antibody QuantitationHepatitis B Surface Antibody Quantitation Lab Routine Autosomal dominant polycystic kidney disease E xpected: 07/16/2024 (Approximate), Expires: 07/09/2025[facility] Comment on above:Expected: 07/16/2024 (Approximate), Expires: 07/09/2025Start: 07-16-2024 End: 64-71-7015Elukngheh B surface antigenHepatitis B surface antigen Lab Routine Autosomal dominant polycystic kidney disease Expected: 07/16/2024 (Approximate), Expires: 07/09/2025[facility] SystemComment on above: Expected: 07/16/2024 (Approximate), Expires: 07/09/2025Start: 07-16-2024 End: 77-83-7535Pqgnluqjl C(HCV) Ab w/ Reflex to PCRHepatitis C(HCV) Ab w/ Reflex to PCR Lab Routine Autosomal dominant polycystic kidney disease Expected: 07/16/2024 (Approximate), Expires: 07/09/2025[facility] SystemComment on above:Expected: 07/16/2024 (Approximate), Expires: 07/09/2025Start: 07-16-2024 End: 77-91-2689HUO 1&2 AB/AG Screen (P24 AG)HIV 1&2 AB/AG Screen (P24 AG) Lab Routine Autosomal dominant polycystic kidney disease Expected: 07/16/2024 (Approximate), Expires: 07/09/2025[facility] SystemComment on above: Expected: 07/16/2024 (Approximate), Expires: 07/09/2025Start: 07-16-2024 End: 03-99-4829Latltgyqkawcovq ABMyeloperoxidase AB Lab Routine Autosomal dominant polycystic kidney disease Expected: 07/16/2024 (Approximate), Expires: 07/09/2025[facility] SystemComment on above:Expected: 07/16/2024 (Approximate), Expires: 07/09/2025Start: 07-16-2024 End: 04-44-2062Betqnydlib 3 AB LQ3Ozkltvohld 3 AB PR3 Lab Routine Autosomal dominant polycystic kidney disease Expected: 07/16/2024 (Approximate), Expires: 07/09/2025[facility] SystemComment on above:Expected: 07/16/2024 (Approximate), Expires: 07/09/2025Start: 07-16-2024 End: 73-01-3599CM RetroperitoneumUltrasound retroperitoneal complete Imaging Routine Autosomal dominant polycystic kidney disease Expected: 07/16/2024 (Approximate), Expires: 09/08/2024[facility] Work Phone: Comment on above:Expected: 07/16/2024 (Approximate), Expires: 09/08/2024Start: 07-14-2024 End: 53-36-2467Pmdsbsc encounter procedurePHN [facility] FremontStart: 07-05-2024 End: 07-38-0183Nrltfzc encounter procedureNOMS BCP OBComment on above:Arrived Start: 59-93-7032Yaybgjloe vaccinationInfluenza VaccineLake County Memorial Hospital [facility] Start: 77-05-9511Dqiyweskz for malignant neoplasm of cervixPap SmearCleveland Clinic SystemStart: 80-78-0084ERuJ,Tdap and Td Vaccines (1 - Tdap)DTaP,Tdap and Td Vaccines (1 - Tdap)[facility] Hospitaltart: 43-65-0501Udrvo BMI Follow Up PlanAdult BMI Follow Up PlanNorthern Regional Hospitaltart: 85-59-7685Ftahs BMI ScreeningAdult BMI ScreeningNorthern Regional Hospitaltart: 06-00-3017Sctgqcgpha ScreeningDepression ScreeningNorthern Regional Hospitaltart: 38-18-4331Plwjsuz ScreeningTobacco ScreeningLake County Memorial Hospital - West End: 37-26-9067Gofor metabolic 2000 panel - Serum or PlasmaBasic Metabolic Panel Lab Routine PKD (polycystic kidney disease) 1 Occurrences starting 04/21/2024 until 04/21/2025[facility] Work Phone: Comment on above:1 Occurrences starting 04/21/2024 until 04/21/2025 End: 82-12-5795JFR panel - Blood by Automated countCBC without diff Lab Routine PKD (polycystic kidney disease) 1 Occurrences starting 04/21/2024 until 04/21/2025[facility] SystemComment on above:1 Occurrences starting 04/21/2024 until 04/21/2025ytology Cervical or vaginal smear or scraping study Pap Smear Pathology and Cytology Routine Well woman exam with routine gynecological exam Ordered: 07/05/2024[facility] [employer] Work Phone: comment on above:Ordered: 07/05/2024 End: 51-64-1075Demobppvbei Neutrophilic Ab, SCytoplasmic Neutrophilic Ab, S Lab Routine Autosomal dominant polycystic kidney disease 1 Occurrences starting 07/14/2024 until 07/09/2025[facility] SystemComment on above:1 Occurrences starting 07/14/2024 until 07/09/2025 End: 35-30-4814Xungvrsnj [Mass/volume] in Serum or PlasmaMagnesium Lab Routine PKD (polycystic kidney disease) 1 Occurrences starting 04/21/2024 until 2024ProChillicothe Va Medical CenterComment on above:1 Occurrences starting 04/21/2024 until 04/21/2025 End: 94-54-5063Oitwshowg [Mass/volume] in Serum or PlasmaPhosphorus Lab Routine PKD (polycystic kidney disease) 1 Occurrences starting 04/21/2024 until 04/21[facility] SystemComment on above:1 Occurrences starting 04/21/2024 until 04/21/2025 End: 92-68-7790Sfpurdb creat ratioProtein creat ratio Lab Routine PKD (polycystic kidney disease) 1 Occurrences starting 04/21/2024 until 04/21/2025 [facility] SystemComment on above:1 Occurrences starting 04/21/2024 until 04/21/2025 End: 30-99-4559Fafcl ImmunofixationSerum Immunofixation Lab Routine Autosomal dominant polycystic kidney disease 1 Occurrences starting 07/14/2024 until 07/09/2025[facility] SystemComment on above:1 Occurrences starting 07/14/2024 until 07/09/2025 End: 16-03-3007SgexwxhbufEpuzvxbhiy Lab Routine Autosomal dominant polycystic kidney disease 1 Occurrences starting 10/20/2024 until 10/15/2025ProUniversity [facility]als Lake [facility] Medical [facility] SystemComment on above:1 Occurrences starting 10/20/2024 until 10/15/2025 End: 02-17-2083WmmtpegystVaaykdfzno Lab Routine PKD (polycystic kidney disease) 1 Occurrences starting 04/21/2024 until 04/21/2025ProUniversity Hospitals [facility] Medical [facility] SystemComment on above:1 Occurrences starting 04/21/2024 until 04/21/2025 End: 89-39-6945ScheygxohtDtqknpfhla Lab Routine Autosomal dominant polycystic kidney disease 1 Occurrences starting 07/14/2024 until 07/09/2025ProUniversity [facility]als [facility] SystemComment on above:1 Occurrences starting 07/14/2024 until 07/09/2025 Immunizations Immunization DateImmunizationNotesCare MucsgdqrZsibueeh16-98-0165rsijnfjbx virus vaccine, unspecified formulationCynthia Caro MD Work Phone: [facility] Payers DatePayer CategoryPayerPolicy [id number] Health Insurance [id number] Health Insurance [id number] Cross Blue Shield Managed Care - OtherSELECT [place] [address] [id number] General Hospital [id number] 1.2.840.242830.1.13.693.2.7.3.000[id number] 2.16.840.1.641690.3.57[id number] 2.16.840.1.052306.3.57[id number] 2.16.840.1.803410.3.57[id number] 2.840.1.698658.3.57[id number] 2.16.840.1.635139.3.57[id number] 2.16.840.1.712941.3.57[id number] 2.840.1.144160.3.57[id number] 2.16840.1.839578.3.57[id number] 2.16.840.1.941135.3.57[id number] 2.16840.1.905055.3.57[id number] 2.840.1.681877.3.57[id number] 2.16840.1.490126.3.57[id number] 2.840.1.260846.3.579.[id number] Social History DateTypeDetailFacilityUnknown if ever smokedNoAdTapsy Other Start: 09-14-2023 End: 11-60-0572Cxl [facility]: 09-09-2023 End: 60-47-1116Opgnsiq smoking status NHISNever smoked tobaccoOREM COMMUNITY [facility]PITAL Healthcare Start: 10-09-0576Dgijbnu use and exposureSmokeless tobacco non-userNOMS HealthcareStart: 03-15-2024 End: 28-14-9215Zzqjhbvhq beverage intakeEx-drinker (finding)[facility] Start: 09-14-2023 End: 53-41-1405Hacbeip of Social functionNOMS HealthcareStart: 81-40-3516Qakxsuy CommentOnly on special occasionsNOMS HealthcareStart: 59-06-1414Eer assigned at [facility] medical centerNot on fileLake County Memorial Hospital - WestTobacc smoking status NHISTobacco smoking consumption unknownCleveland Clinic SystemStart: 22-48-3912StrOwcdul (finding)[facility] TapImmune SystemStart: 19-88-5757Sxezscx smoking statusNever [facility] Hospitalexual OrientationNorwalk Memorial Hospital Surgery [place] Start: 08-23-2023 End: 45-71-4226Wtftnfkc to SARS-CoV-2 (event)[facility] Clinical Notes 06-06-2023 to 07-26-2025 Note Date & TydgFxdxDxecyeyl60-51-1903 NoteGeneral Surgery Office/Clinic Note Chief Complaint consultation for rectal bleeding HPI Staff 29 year old female presents on consultation from Dr. Sadler for rectal bleeding. Reports approximate 2year history of intermittent RLQ pain. Describes pain as a dull ache that is usually relieved afterbowel movement. Verbalized 2-3 episodes over the past one month of bright red blood in stool. Denies overt rectal bleeding. Reports occasional stabbing rectal pain. Denies nausea, vomiting or weight loss. Last colonoscopy completed 11/2018 with mild ileitis. No known family history of colon cancer or inflammatory bowel disease. History of Present Illness 29 yo female with h/o htn, migraines, GERD, polycystic kidney disease, MARY, anxiety, referred for rectal bleeding; patient reports 2 year h/o RLQ crampy pain, intermittent, no known triggers, usuallyrelieved with bm; intermittent hematochezia, last colonoscopy 2018 for abd pain and change in bms; mild inflammation of terminal ileum noted on bx, otherwise normal; abd operations significant for laparoscopy; no asa or NSAID use; no tobacco use; no fmhx of GI malignancy; no fmhx of IBD. Review of Systems PHQ Score Initial Depression Screen Score: 0 SCORE ROS - Provider Constitutional: no fever, no sweats, no weight loss. Eyes: no glasses, no blurred vision, no visual loss. ENMT: no dentures, no hoarseness, no swallowing difficulties, no hearing loss, no ear infection(s),no nose bleeds. Cardiovascular: normal blood pressure, no chest pain, regular heartbeat, no heart murmur. Respiratory: no shortness of breath, no cough, no asthma, no wheezing. Gastrointestinal: no nausea, no vomiting, no diarrhea, no constipation, no blood in stool, no change in bowel habits, no abdominal pain, no hepatitis. Genitourinary: no kidney stones, no urine infection, no dysuria. Musculoskeletal: no pain, no weakness. Skin: no changing moles, no rash, no skin lumps. Neurologic: no seizures, no epilepsy, no headache. Psychiatric: no emotional or psychiatric problem. Heme/Lymph: no bleeding problems, no anemia, no blood clots, no transfusions. Allergy/Immunologic: no swollen lymph nodes/glands, no IV drug abuse. Other: Additional ROS info: Except as noted in the above Review of Systems and in the History of Present Illness, all other systems have been reviewed and are negative or noncontributory. Physical Exam Vitals & Measurements HR: 76(Peripheral) RR: 16 BP: 160/104 HT: 66 in HT: 167.6 cm WT: 93.9 kg WT: 207.014 lb BMI: 33.43 HEENT: normal conjunctiva, sclera clear, no scleral icterus, EOM intact, PERRLA, oral mucosa moist without lesions. Neck: trachea midline, no mass, symmetric, no thyromegaly or nodules, no adenopathy Respiratory: lungs CTA, respirations non labored. Cardiovascular: regular rate and rhythm, no murmur, no pedal edema or varicosities. Gastrointestinal: obese, soft, non distended, mild tenderness, RLQ to deep palpation, no peritonealsigns no masses, no palpable hernias, diastasis recti no, no hepatosplenomegaly; normal bs Musculoskeletal: normal gait, digits and nails without infection, nodes, cyanosis, clubbing. Skin: no rashes, no lesions, no ulcers, no subcutaneous nodules, induration. Psychiatric/Neuro: oriented to time, place, person, judgement normal, affect appropriate for age, insight intact, no focal deficits. Tests: , review of old records completed , Discussed surgical options, risks, and possible complications with patient. Assessment/Plan 1. Abdominal pain, RLQ (right lower quadrant) (R10.31: Right lower quadrant pain) plan colonoscopy under anesthesia for further evaluation, informed consent obtained. 2. Hematochezia (K92.1: Melena) see # 1 Follow-up No qualifying data available Problem List/Past Medical History Ongoing Abdominal pain, RLQ (right lower quadrant) Anxiety BMI 33.0-33.9,adult Essential hypertension Gastroesophageal reflux disease Hematochezia Migraines Obesity due to excess calories Polycystic kidney disease Rectal bleeding Sleep apnea Historical No qualifying data Procedure/Surgical History Colonoscopy (12/10/2018), EGD - esophagogastroduodenoscopy (12/10/2018), Excision of lipoma of back, Laparoscopy, Tonsillectomy and adenoidectomy. Medications No active medications Allergies No Known Allergies No Known Medication Allergies Social History Alcohol - Denies Alcohol Use, 07/26/2025 Substance Abuse - Denies Substance Abuse, 07/26/2025 Tobacco Never (less than 100 in lifetime) Tobacco Use:. Never Smokeless Tobacco Use:., 07/26/2025 Family History Hypertension: Mother. Polycystic kidney disease: Mother. Rheumatoid arthritis: Mother.Kettering HealthComment on above:Result Comment: Electronically Signed By: SITA RUVALCABA, Yessenia Sanchez\Date and Time Signed: 07/26/25 16:00 [id number] History of Present illness Narrative* Db Crockett DPM - 05/08/2025 9:30 AM EDT Images from the original note were not included. Subjective Patient ID: Aaliyah Carvalho is a 29 y.o. female who presents for Ankle Pain (Pt is here today for pain in the Lt ankle, almost 2 years ago she was moving and fell on the ankle. There is a lump back of achilles area, painful more on the front of her ankle. Sometimes feels like walking with rubber bands snapping sensation. /SS: 9.5). HPI This is a new patient who presents to clinic with multiple concerns of the foot. She has noted a lump along the Achilles tendon region. She is unsure how long this has been present. Her biggest concern today is left foot pain. She relates a couple of falls over the last 3 years and describes an inversion type of injury. Since that time she has started noticing pain along the inside and outside ofthe left ankle. She did try getting more supportive shoes that has helped a little bit. Review of Systems Constitutional: Negative for activity change and appetite change. Respiratory: Negative for chest tightness and shortness of breath. Cardiovascular: Negative for chest pain. Musculoskeletal: Positive for gait problem. Negative for arthralgias. Skin: Negative for color change and wound. Neurological: Negative for weakness and numbness. Psychiatric/Behavioral: Negative for agitation and behavioral problems. Hematological: Does not bruise/bleed easily. Endocrine: Negative for cold intolerance and heat intolerance. Allergic/Immunologic: Negative for immunocompromised state. Past medical History Past Medical History: Diagnosis Date Benign essential HTN Bilateral lower extremity edema COVID-19 Depression screening Dizziness Ear problems 03/28/23 Endometriosis 2008 Headache 03/28/23 Insomnia Obesity (BMI 30-39.9) Other specified related conditions, unspecified trimester ([facility]) Ovarian cyst PCK (polycystic kidney disease) TMJ dysfunction Back in 2011 Well woman exam Medications Current Outpatient Medications: Loratadine (Claritin) 10 MG capsule, Take 10 mg by mouth Daily, Disp: , Rfl: Allergies Raspberry Past Surgical History Past Surgical History: Procedure Laterality Date ADENOIDECTOMY 2008 BACK SURGERY 2013 COLONOSCOPY 2018 with EGD COLPOSCOPY 2017 LAPAROSCOPY DIAGNOSTIC / BIOPSY / ASPIRATION / LYSIS 2018 OTHER SURGICAL HISTORY r/o fatty tumor from back TONSILLECTOMY 2008 Tonsillectomy/Adenoidectomy WISDOM TOOTH EXTRACTION wisdom teeth Family History Family History Problem Relation Name Age of Onset Rheum arthritis Mother Chuyita Salgado Hypertension Mother Chuyita Salgado Anemia Mother Chuyita Salgado Arrhythmia Mother Chuyita Salgado Objective Physical Exam Constitutional: Appearance: She is obese. HENT: Head: Normocephalic and atraumatic. Cardiovascular: Pulses: Normal pulses. Pulmonary: Effort: Pulmonary effort is normal. No respiratory distress. Abdominal: Palpations: There is no mass. Musculoskeletal: Cervical back: No rigidity. Comments: Weightbearing examination reveals pes planus morphology. She is able to perform a double heel rise test without tenderness. This does supinate the hindfoot. Left foot: Isolated and maximal tenderness within the sinus tarsi and posterior tibial tendon. Minor tenderness along the medial and central bands of the plantar fascia at the mid arch. Worse with dorsiflexion of the digits. Relieved with relaxation of the digits. Muscle strength 5/5 for all quadrants without tenderness. Ankle dorsiflexion 0 degrees with the knee extended, flexed. Subtalar range of motion smooth, nonpainful. On the left side she has very low- lying soleal muscle belly which could be the lump that she is feeling. I do not feel any obvious palpable masses. No tenderness to theAchilles tendon which is normal for thickness. There does not feel to be any nodularity, deficit ofthe Achilles tendon. Skin: Capillary Refill: Capillary refill takes less than 2 seconds. Findings: No lesion or rash. Neurological: Mental Status: She is alert. Comments: No loss of protective sensation, gross sensation intact. Psychiatric: Mood and Affect: Mood normal. Behavior: Behavior normal. XR ankle 2 views right Imaging Result: Entered in error, wrong side XR foot 1 or 2 views right Imaging Result: Entered in error, wrong side XR foot 1 or 2 views left Imaging Result: AP, medial oblique views are weight-bearing. Increased IM 1-2 angle. Slight joint space narrowing of the 1st MTP. No cystic changes noted. Approximately 30 percent talar head uncoverage. Os trigonum noted over the posterior subtalar joint region. XR ankle 2 views left Imaging Result: AP, lateral views are weight-bearing. Decreased calcaneal inclination and increased talar declination. Talus is well seated within the ankle mortise. Os trigonum noted over the posterior talar process. No fractures or dislocations noted. Assessment/Plan ICD-10-CM 1. Valgus deformity, not elsewhere classified, left ankle M21.072 XR foot 1 or 2 views left XR ankle 2 views left 2. Posterior tibial tendinitis of left lower extremity M76.822 XR foot 1 or 2 views left XR ankle 2 views left 3. Posterior tibial tendinitis of right lower extremity M76.821 XR ankle 2 views right XR foot 1 or 2 views right 4. Instability of left ankle joint M25.372 5. Equinus contracture of left ankle M24.572 6. Difficulty walking R26.2 7. 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 2 views of the left foot as well as 2 views of the left ankle were taken in office today and I discussed my findings. Patient has pes planovalgus deformity which seems to be leading to the symptomatology including posterior tibial tendinitis and sinus tarsi notice. Causes and treatment options for progressive flatfoot deformity were discussed in detail. At thistime I am recommending a home exercise program focusing on gastroc soleal contracture and periarticular ankle strengthening exercises. Program was printed off and given to the patient. Complete dailyas instructed. I have recommended orthotic therapy to help control the foot structure and reduced valgus stresses across the midfoot. Patient has an ewcl-fqa-rjzyxyw insert in her shoe today that is very supportive and similar to power steps. She will wear this at all times and avoid barefoot walking. I have recommended an ASO brace for stabilization and limitation of motion of the ankle and rearfoot. Patient agreed and was fitted for the appropriate brace. Goals of therapy include prevent further injury, reduced valgus instability of the hindfoot into increased ability to a hypermobile foot.Anticipated time of use - indefinite. At the time of dispensing it is suitable and not substandard.Patient is able to apply the brace independently. It is comfortable to walk and fits inside the shoe. I also discussed surgical reconstruction if conservative care is unsuccessful. Lastly I recommended an anti-inflammatory that can be taken on an as-needed basis. Patient states that she has issues with her kidneys and would like to avoid any sort of NSAID. She will use topical Voltaren gel and ice, heat as well as contrast bathing as necessary. I discussed the possibility of surgical intervention if she continues to have issues. For now I will see her back as needed. In regards to the lump that she is feeling she does have a very low-lying soleal muscle belly whichseems to coincide with the area that she is referencing. I do not feel any subcutaneous nodules or tumors in this area and I do not see any changes on radiographs to suggest anything concerning at this time. Recommend continuing to monitor. If she notices change in size, appearance of the posteriorcalf we could consider an MRI. Follow up as needed for this issue. This note was created with the assistance of a speech recognition program. While intending to generate a timely document that accurately reflects the content of the visit, no guarantee can be provided that every grammatical or spelling mistake has been or will be identified or corrected. Thank you for your understanding. Db Crockett DPM documented in this encounterPhelps [id number] History of Present illness Narrative* Cynthia Caro MD - 10/20/2024 3:30 PM EST Images from the original note were not included. Date of Service: 10/20/24 PCP: JAY SADLER MD History of Present Illness Aaliyah [...] blood pressure control. An MRI of the kidneyswas ordered to evaluate total kidney volume to [...] cell and 1 white blood cells per high- power field. As you know she is a very active mother of 2 children. There was no report of abdominal pain, grosshematuria, urinary tract infection, or lower extremity edema. She does measure her blood pressure at home; her home blood pressures are customer response representative of the blood pressures that were recorded [...] children. She delivered a healthy boy by March. Surgical, Family & Social History Surgical History: [...] results found for: IRONSAT , FERRITIN , NEJOXOCI24 , FOLATE Mineral and Bone Labs: Lab [...] or less. We would usually use an ZAKIA inhibitor angiotensin receptor enrique as first-line therapy. These agents should not be used in patients who are trying to become or who are . I have elected not to started Zakia inhibitor in this young woman. 3. Target [...] day. We will increase her Procardia XL to90 mg daily. 6.Return in 6 months for repeat evlauation. We will review the results of her MRI of the kidneys then to assess her candidacy for tolvaptan therapy. Thank you JAY SADLER MD for the opportunity to participate in the care of your patients! Please contact me at [phone] (Office) or [phone] (Answering service) with any questions. CYNTHIA CARO MD [facility] This note was created with the assistance of a speech-recognition program. Although the intention is to generate a document that actually reflects the content of the visit, no guarantees can be provided that every mistake has been identified and corrected by editing. CYNTHIA CARO MD,PhD FACP [facility] ANY QUESTIONS FEEL FREE TO CALL: 1. OFFICE [phone] 2. ANSWERING SERVICE: [phone] documented in [facility] encounterL[facility] Miscellaneous Notes* Telephone Encounter - Eva Moura - 10/19/2024 11:48 AM EST LM to see if pt could come in at 8:30 am tomorrow instead of 3:30 pm. documented in this encounterL[facility]-22-2025 Telephone encounter Note* Telephone Encounter - Eva Moura - 10/19/2024 11:48 AM EST LM to see if pt could come in at 8:30 am tomorrow instead of 3:30 pm. [facility]01-17-2025 Miscellaneous Notes* Telephone Encounter - Huma Tena CMA - 10/14/2024 3:33 PM EST Left message for patient to call the office back to confirm upcoming appointment 10/20 at 3:[address] Caro in [place] documented in this [facility]01-17-2025 Telephone encounter Note* Telephone Encounter - Huma Tena CMA - 10/14/2024 3:33 PM EST Left message for patient to call the office back to confirm upcoming appointment 10/20 at 3:[address] Caro in [place] [facility] [id number] History of Present illness Narrative* Cynthia Caro MD - 07/14/2024 10:00 AM EDT Images from the original note were not included. PCP: JAY SADLER MD Date of Service: 07/14/24 Reason for Referral: Autosomal dominant polycystic kidney disease Referring Physician: Jay Sadler MD History of Present Illness Aaliyah Carvalho is a 28 y.o. female, who was referred to us by Dr. Jay Sadler for the evaluation ofautosomal dominant polycystic kidney disease. The patient's mother has polycystic kidney disease and is a patient of our practice. She was diagnosed with ADPKD at age 18. At one time was followed by Dr. Holder until 2019 when she lost her healthinsurance. Her entire family has been transplanted or [...] results found for: IRONSAT , FERRITIN , [id number] , FOLATE Mineral and Bone Labs: Lab [...] or less. We would usually use an ZAKIA inhibitor angiotensin receptor enrique as first-line therapy. These agents should not [...] a day for BP control. Thank you JAY SADLER MD for the referral and opportunity to participate in the care of your patients! Please contact me at [phone] (Office) or [phone] (Answering service) with any questions. CYNTHIA CARO MD [facility] This note was created with the assistance of a speech-recognition program. Although the intention is to generate a document that actually reflects the content of the visit, no guarantees can be provided that every mistake has been identified and corrected by editing. CYNTHIA CARO MD,PhD FACP [facility] ANY QUESTIONS FEEL FREE TO CALL: 1. OFFICE [phone] 2. ANSWERING SERVICE: [phone] documented in this encounterElyria Memorial HospitalAjaline [facility] [id number] Miscellaneous Notes* Telephone Encounter - Huma Tena CMA - 07/06/2024 4:02 PM EDT Left voicemail for patient to return call to confirm upcoming appointment on 07/14 at 10:[address] Caro in [place] and Informed patient lab work need completed prior to uncoming appointment * Telephone Encounter - Eva Moura - 07/06/2024 4:02 PM EDT Pt called back and confirmed appt. Nephro- Del[place]? ([facility] probably 5 or more years ago) Other Spec- No Echo- [place] possibly Abd Img- No Labs- Going to [facility] 07/13/24 Reminders- Given documented in this encounterL[facility]10-[facility]-20[facility] Telephone encounter Note* Telephone Encounter - Huma Tena CMA - 07/06/2024 4:02 PM EDT Left voicemail for patient to return call to confirm upcoming appointment on 07/14 at 10:[address] Caro in [place] and Informed patient lab work need completed prior to uncoming appointment [facility]10-09-2024 Telephone encounter Note* Telephone Encounter - Eva Moura - 07/06/2024 4:02 PM EDT Pt called back and confirmed appt. Nephro- Delashi? ([facility] probably 5 or more years ago) Other Spec- No Echo- [place] possibly Abd Img- No Labs- Going to [facility] 07/13/24 Reminders- Given [facility]10-08-[facility] History of Present illness Narrative* HILDA Rebolledo - 07/05/2024 11:00 AM EDT Reason for Appointment: Patient ID: Aaliyah Carvalho [...] nursing note reviewed. Exam conducted with a citrus peeler present. Vitals: Estimated body mass index is [...] behalf of: HILDA Rebolledo documented in this encounterPhelps [id number] History of Present illness Narrative* HILDA Rebolledo - 05/17/2024 11:20 AM EDT Reason for Appointment: Patient ID: Aaliyah Carvalho is a 28 y.o. female who presents for Follow-up Patient presents today for 6 week Hyst Post Op Follow Up appointment. MEDICATIONS Current Outpatient Medications Medication Instructions labetalol [...] Exam Constitutional: Appearance: Normal appearance. She is normal weight. HENT: Head: Normocephalic. Cardiovascular: Rate and Rhythm: Normal rate. Pulses: Normal pulses. Pulmonary: Effort: Pulmonary effort is normal. Breath sounds: Normal breath sounds. Abdominal: Palpations: Abdomen is soft. Musculoskeletal: General: Normal range of motion. Neurological: General: No focal deficit present. Mental Status: She is alert and oriented to person, place, and time. Psychiatric: Mood and Affect: Mood normal. Behavior: Behavior normal. Thought Content: Thought content normal. Judgment: Judgment normal. Vitals and nursing note reviewed. Vitals: Estimated body mass index is 32.26 kg/m as calculated from the following: Height as of this encounter: 5' 7 . Weight as of this encounter: 206 lb. BP: 134/86 No LMP recorded. ASSESSMENT & PLAN No diagnosis found. Documented by HILDA Rebolledo on behalf of: HILDA Rebolledo documented in this encounterPhelps [id number] Miscellaneous Notes* Telephone Encounter - Eva Moura - 04/18/2024 9:31 AM EDT LM to schedule new pt appt. documented in this encounterL[facility]07-22-2024 Telephone encounter Note* Telephone Encounter - Eva Zeny - 04/18/2024 9:31 AM EDT LM to schedule new pt appt. [facility]06-04-2024 Miscellaneous Notes* Result Encounter Note - Randi Arteaga LPN - 03/01/2024 12:47 PM EDT Pt notified and is going to schedule growth scan for two weeks. She is also going to schedule for NST/BPP documented in this encounterPhelps [id number] Progress note* Result Encounter Note - Randi Arteaga LPN - 03/01/2024 12:47 PM EDT Pt notified and is going to schedule growth scan for two weeks. She is also going to schedule for NST/BPP [facility] [employer] Work Phone: [phone] 247-866609-09-2023 Evaluation note* Encounter Date Diagnosis Assessment Notes Treatment Notes Treatment Clinical Notes May, Local reaction to be e sting, accidental or unintentional, initial encounter (ICD-10 [...] understanding and is agreeable with treatment plan [place] Other Evaluation note* Diagnosis Well woman exam with routine gynecological exam Routine gynecological examination documented in this encounter [facility] HealthcareEvaluation note* Diagnosis 6 weeks follow-up- Primary documented in this encounter [facility]* Diagnosis Autosomal dominant polycystic kidney disease- Primary Congenital polycystic kidney, autosomal dominant [facility] Diagnosis PKD (polycystic kidney disease)- Primary Congenital polycystic kidney, unspecified type [facility] Diagnosis Autosomal dominant polycystic kidney disease- Primary Congenital polycystic kidney, autosomal dominant PKD (polycystic kidney disease) Congenital polycystic kidney, unspecified type [facility]* Diagnosis Valgus deformity, not elsewhere classified, left ankle- Primary Posterior tibial tendinitis of left lower extremity Posterior tibial tendinitis of right lower extremity Instability of left ankle joint Equinus contracture of left ankle Difficulty walking Difficulty in walking Sinus tarsi syndrome of left foot documented in this encounter [facility] HealthcareHistory general Narrative - Reported* Type Description Date Medical History polycystic kidneys Medical HistoryHeadacheMedical HistoryGERDMedical HistoryHYPERTENSIONMedical HistoryALLERGIC RHINITISMedical HistorySLEEP APNEAMedical Historyendometriosis Medical Historycrohns borderlineSurgical Historytonsillectomy and adenoidectomy Surgical Historyfatty tumor removed off backSurgical Historywisdom teeth extract Surgical [id number] [id number] HistoryHTNHospitalization HistorymigraineHospitalization Historychild [id number] [place] Other Hospital course Narrative No data available for this section [facility] [place] [facility] Discharge instructions No data available for this section [facility] [place] InstructionsNot on filedocumented in this encounter [facility] SystemInstructionsNot on filedocumented in this encounter [facility] SystemInstructionsNot on filedocumented in this encounter [facility] SystemProgress note No data available for this section [facility] [place] Reason for visit Narrative* Consultation (Routine) - Pending ReviewSpecialtyDiagnoses / ProceduresReferred By ContactReferred To ContactNephrology Diagnoses PKD (polycystic kidney disease) Jay Sadler MD Phone: tel:[phone] fax: PHN [facility] [address] [place] [address] Phone: tel: fax: Referral IDStatusReasonStart DateExpiration DateVisits RequestedVisits [id number] Review Specialty Services Required [facility] Summary Purpose Family History No Family History Records FoundNo Family History Records FoundNo Family History Records FoundNo Family History Records Found No data available for this section No Family History Records Found Advance Directives No Advanced Directives Records FoundNo Advanced Directives Records FoundNo Advanced Directives Records FoundNo Advanced Directives Records FoundNo Advanced Directives Records Found Additional Source Comments INFORMATION SOURCE (unrecogn ized section and content) DATE CREATED AUTHOR 07/19/2019 [facility] DATE CREATED AUTHOR AUTHOR'S ORGANIZ ATION 12/29/2022 [facility] DATE CREATED AUTHOR AUTHOR'S ORGANIZ ATION 10/15/2024 [facility] DATE CREATED AUTHOR AUTHOR'S ORGANIZ ATION 05/09/2025 [facility] DATE CREATED AUTHOR AUTHOR'S ORGANIZ ATION 07/28/2025 [facility] REASON FOR VISIT (unrecogniz ed section and content) ReasonCommentsGynecologic ExamReasonCommentsPostpartum Follow-upReasonComments Ankle PainPt is here today for pain in the Lt ankle, almost 2 years ago she was moving and fell on the ankle.There is a lump back of achilles area, painful more on the front of her ankle. Sometimes feels likewalking with rubber bands snapping sensation. SS: 9.5 Care Teams (unrecognized sec tion and content) Team MemberRelationshipSpecialtyStart DateEnd Date Jay Sadler MD [address] [place] [address] PCP - GeneralFamily Blowkqlp91/2/23Team MemberRelationshipSpecialtyStart DateEnd Date Jay Sadler MD [address] [facility] [place] [address] PCP - GeneralFamily Fuqahmik47/2/23Team MemberRelationshipSpecialtyStart DateEnd Date Jay Sadler MD [address] [facility] [place] [address] PCP - GeneralFamily Yoqvtmml19/2/23Team MemberRelationshipSpecialtyStart DateEnd Date Jay Sadler MD [address] [facility] [place] [address] PCP - GeneralFamily Bcixoude81/2/23Team MemberRelationshipSpecialtyStart DateEnd Date Jay Sadler MD [address] [place] [facility] [address] PCP - GeneralFamily Qmoiifrs88/16/24Team MemberRelationshipSpecialtyStart Date End Date Jay Sadler MD [address] [place] [facility] [address] PCP - GeneralFamily Papkkrmf24/16/24Team MemberRelationshipSpecialtyStart Date End Date Jay Sadler MD [address] [place] [facility] [address] PCP - GeneralFamily Hrkofklv27/16/24Team MemberRelationshipSpecialtyStart Date End Date Jay Sadler MD [address] [place] [facility] [address] PCP - GeneralFamily Urykumfw87/16/24Team MemberRelationshipSpecialtyStart Date End Date Jay Sadler MD [address] [facility] [place] [address] PCP - [facility]mi[facility]04/19/25Team MemberRelationshipSpecialtyStart DateEnd Date Jay Sadler MD [address] [facility] [place] [address] PCP - [facility]04/19/25Team MemberRelationshipSpecialtyStart DateEnd Date Jay Sadler MD [address] [facility] [place] [address] PCP - [facility]04/19/25Team MemberRelationshipSpecialtyStart DateEnd Date Jay Sadler MD [address] [facility] [address] PCP - [facility]04/19/25Team MemberRelationshipSpecialtyStart DateEnd Date Jay Sadler MD [address] [facility] [place] [address] PCP - [facility]Well[facility]04/19/25 FOR RECORDS PERTAINING TO PATIENTS WHO ARE [...] BE BASED ON THE PRIMARY CLINICAL RECORDS. [facility] [employer] [facility]. provides no warranty or guarantee of the accuracy or completeness of information in this document.
--- OUTSIDE RECORDS SUMMARY | 2025-08-09 19:58 | XMS_ITS | Encounter Summary ---
Author Organization [facility] Address [address] [place] [address] Care Team Providers Care Environmental Director Name Role Phone Jay Sadler MD Primary Care Provider [phone] Encounter Details DateTypeDepartmentCare Team (Latest Contact Info)Ekraxiqpoym82/23/2023linisync Result Encounter [facility] External Department Unsolicited Robbin Stinson, DO [address] [place], [place] [id number] Social History Tobacco UseTypesPacks/DayYears UsedDateSmoking Tobacco: NeverSmokeless Tobacco: NeverAlcohol UseStandard Drinks/WeekCommentsNot Currently1 (1 standard drink = 0.6 oz pure alcohol)Only on special occasionsCommentsYesSex and Gender InformationValueDate RecordedSex Assigned at BirthNot on fileLegal SexFemale 12/10/2022 11:47 PM EDTGender IdentityNot on fileSexual OrientationNot on file COVID-19 ExposureResponseDate RecordedIn the last 10 days, have you been in contact with someone who was confirmed or suspected to have Co ronavirus/COVID-19?No / Aotdfs8409/02/2023 9:53 AM ESTdocumented as of this encounter Plan of Treatment Not on file documented as of this encounter Procedures Procedure NamePriorityDate/TimeAssociated DiagnosisCommentsUS OB TRANSVAGINAL 09/19/2023 12:15 AM EST documented in this encounter Results * US OB TRANSVAGINAL (09/19/2023 12:15 AM EST)Anatomical RegionLaterality ModalityOtherSpecimen (Source)Anatomical Location / LateralityCollection Method / VolumeCollection TimeReceived Time09/19/2023 12:15 AM EST Narrative 09/19/2023 12:18 AM EST [facility] ?[address] ? [place] [address] ? Ultrasound Report ? Signed ? Patient: DEVENAALIYAH J ? MR#: [id number] ?? : 1995 ?Acct:[id number] ?? Age/Sex: 28 / F ?ADM Date: 09/18/23 ?? Loc: US ? Attending Dr: Robbin Stinson D.O. ? Ordering Physician: Robbin Stinson D.O. ?? Date of Service: 09/18/23 ?? Procedure(s): US OB transvaginal ?? Accession Number(s): [id number] ? cc: Robbin Stinson D.O.; Jay Sadler M.D. ? [facility] ? [address] [place] [address] ? [place] [address] ? Patient Name: ?? AALIYAH CARVALHO ? MRN: [facility]:[id number] ? date: 1995 ?Sex: F ?? Assigned Patient Location: ?? Current Patient Location: ? Accession/Order Number: [id number] ?? Exam Date: 09/18/2023 ??08:33 ?Report Date: 09/19/2023 ??00:15 ? At the request of: ?? ROBBIN ??SHANTELL ? Procedure: ??US OB transvaginal ? EXAMINATION: US OB transvaginal ? HISTORY: MISSED MENSES ? COMPARISON: No relevant comparison available. ? FINDINGS: ? GESTATIONAL SAC: Present and normal appearing. ?? YOLK SAC: Present and normal appearing. ?? POLE: Present and normal appearing. ?? CARDIAC: Present. ? UTERUS: Normal size and appearance. ?? OVARIES: Right: Normal. Left: Normal. ?? CERVIX: 4.6 cm in length and closed. ?? CUL-DE-SAC: Trace amount of free fluid. ?? OTHER: None. ? AGE BY LMP: 11 weeks 2 days ?? BEBE BY LMP: 04/06/2024 ?? AGE BY US CRL: 8 weeks 2 days ?? BEBE BY US CRL: 04/27/2024 ? US/US OB transvaginal ?? IMPRESSION: ? 1. Single live intrauterine . ? Electronically authenticated by: SIDNEY ??FRANCA ?? Date: 09/19/2023 ??00:15 ? Dictated By: ?Sidney Delcid M.D. ? Signed By: ?09/19/23 0018 ? DD/ 0015 ? TD/TT: ? Maintenance Trainer: Procedure Note Radiology, Radiologist, - 09/19/2023 [place] [address] Ultrasound Report Signed Patient: AALIYAH CARVALHO JMR#: [id number] : 1995Acct:[id number] Age/Sex: 28 / FADM Date: 09/18/23 Loc: US Attending Dr: Robbin Stinson D.O. Ordering Physician: Robbin Stinson D.O. Date of Service: 09/18/23 Procedure(s): US OB transvaginal Accession Number(s): [id number] cc: Robbin Stinson D.O.; Jay Sadler M.D. The [place] [id number] Patient Name: AALIYAH CARVALHO MRN: [facility]:[id number] date: 1995 Sex: F Assigned Patient Location: US Current Patient Location: Accession/Order Number: [id number] Exam Date: 09/18/2023 08:33 Report Date: 09/19/2023 00:15 At the request of: ROBBIN STINSON Procedure: US OB transvaginal EXAMINATION: US [...] Single live intrauterine . Electronically authenticated by: SIDNEY DELCID Date: 09/19/2023 00:15 Dictated By: Sidney Delcid M.D. Signed By:09/19/238 DD/ TD/TT: Maintenance Trainer: Authorizing ProviderResult TypeResult StatusCorey Shantell DOCLINISYNC IMAGINGFinal Result documented in this encounter Visit Diagnoses Not on filedocumented in this encounter Care Teams Team MemberRelationshipSpecialtyStart DateEnd Date Jay Sadler MD [address] [place] [address] PCP - GeneralFamily Medicine04/19/25documented as of this encounter
--- OUTSIDE RECORDS SUMMARY | 2025-08-09 19:58 | XMS_ITS | Encounter Summary ---
Author Organization [facility] Address [address] [facility] [place] [address] Care Team Providers Care Technical Assistance Consultant Name Role Phone Jay Sadler MD Primary Care Provider [phone] Encounter Details DateTypeDepartmentCare Team (Latest Contact Info)Ixtqqsconpc60/12/2025Bamboo flowsheet [facility] [address] [place] [address] Sharon Johnson PA [address] [facility] [address] [place], [facility] Social History Tobacco UseTypesPacks/DayYears UsedDateSmoking Tobacco: NeverSmokeless Tobacco: NeverAlcohol UseStandard Drinks/WeekCommentsNot Currently1 (1 standard drink = 0.6 oz pure alcohol)Only on special occasionsCommentsUnknownSex and Gender InformationValueDate RecordedSex Assigned at BirthNot on fileLegal Sex Kkcfee8512/10/2022 11:47 PM EDTGender IdentityNot on fileSexual OrientationNot on filedocumented as of this encounter Plan of Treatment Not on file documented as of this encounter Visit Diagnoses Not on filedocumented in this encounter Care Teams Team MemberRelationshipSpecialtyStart DateEnd Date Jay Sadler MD [address] [facility] [place] [address] PCP - GeneralFamily Medicine04/19/25documented as of this encounter
--- OUTSIDE RECORDS SUMMARY | 2025-08-09 19:58 | XMS_ITS | Encounter Summary ---
Author Organization [facility] Address [address] [place] [address] Care Team Providers Care Rn Medical Surgical Name Role Phone Jay Sadler MD Primary Care Provider [phone] Encounter Details DateTypeDepartmentCare Team (Latest Contact Info)Evrjdkimzoa26/21/2024Clinisync Result Encounter [facility] External Department Unsolicited Robbin Stinson, DO [address] [address] [place], [place] [address] Social History Tobacco UseTypesPacks/DayYears UsedDateSmoking Tobacco: NeverSmokeless Tobacco: NeverAlcohol UseStandard Drinks/WeekCommentsNot Currently1 (1 standard drink = 0.6 oz pure alcohol)Only on special occasionsCommentsYesSex and Gender InformationValueDate RecordedSex Assigned at BirthNot on fileLegal SexFemale 12/10/2022 11:47 PM EDTGender IdentityNot on fileSexual OrientationNot on file documented as of this encounter Plan of Treatment Not on file documented as of this encounter Procedures Procedure NamePriorityDate/TimeAssociated DiagnosisCommentsUS OB ANATOMY 12/17/2023 6:24 AM EDT documented in this encounter Results * US OB ANATOMY (12/17/2023 6:24 AM EDT)Anatomical RegionLateralityModalityOther Specimen (Source)Anatomical Location / LateralityCollection Method / Volume Collection TimeReceived Time12/17/2023 6:24 AM EDT Narrative 12/17/2023 6:27 AM EDT [facility] ?[address] ? [place] [address] ? Ultrasound Report ? Signed ? Patient: ROSS,AALIYAH J ? MR#: [id number] ?? : 1995 ?Acct:[id number] ?? Age/Sex: 28 / F ?ADM Date: 03/20/24 ?? Loc: [facility] ? Attending Dr: Robbin Stinson D.O. ? Ordering Physician: Robbin Stinson D.O. ?? Date of Service: 12/16/23 ?? Procedure(s): US OB anatomy ?? Accession Number(s): [id number] ? cc: Robbin Stinson D.O.; Jay Sadler M.D. ? [facility] ? [address] ? [place] [address] ? Patient Name: ?? AALIYAH CARVALHO ? MRN: [facility]:[id number] ? date: 1995 ?Sex: F ?? Assigned Patient Location: [facility] ?? Current Patient Location: ? Accession/Order Number: [id number] ?? Exam Date: 12/16/2023 ??14:39 ?Report Date: 12/17/2023 ??06:24 ? At the request of: ?? ROBBIN ??SHANTELL ? Procedure: ??US OB anatomy ? EXAMINATION: US OB anatomy, US OB cervical length ? HISTORY: ANATOMY ? COMPARISON: Ultrasound OB transvaginal 09/18/2023 ? TECHNIQUE: Transabdominal sonographic examination was performed for ?? obstetrical ?? and evaluation. ? FINDINGS: ? Number: 1 ?? Heart Rate: 140.0 bpm H.B. /min ?? Amniotic Fluid Volume: Subjectively normal ?? Placental Location: ANTERIOR with lower margin 6.1 cm from os. ?? Cervix Length: 4.3 cm, closed. ? ANATOMY: Normal Structures -cerebellum, choroid plexus, cisterna magna, ?? lateral ?? cerebral ventricles, orbits, midline falx, hard palate, four-chamber heart, ?? RVOT, LVOT, stomach, kidneys, bladder, umbilical cord insertion into abdomen, ?? three-vessel cord, cervical spine, thoracic spine, lumbar spine, sacral spine, ? right upper extremity, left upper extremity, right lower extremity, left lower ? extremity. ? SUBOPTIMALLY SEEN: None ?? ABNORMALITIES: None ? BIOMETRY: ?? BPD: 5.1 cm 21 weeks 3 days ?? HC: 18.8 cm 21 weeks 1 days ?? AC: 16.8 cm 21 weeks 6 days ?? FL: 3.6 cm 21 weeks 4 days ?? EFW:438.4 grams; 78% ?? FL/AC: 21.6 ?? FL/BPD: 71.3 ?? HC/AC: 1.1 ? GESTATIONAL AGE: ?? Age by EDC: 21 weeks 0 days ?? BEBE by EDC: 04/27/2024 ?? Age by current US: 21 weeks 4 days ?? BEBE by current US: 04/23/2024 ? US/US OB anatomy ?? IMPRESSION: ? 1. Single live intrauterine with growth detailed above. ? Electronically authenticated by: SIDNEY ??FRANCA ?? Date: 12/17/2023 ??06:24 ? Dictated By: ?Sidney Delcid M.D. ? Signed By: ?12/17/23626 ? DD/ 0624 ? TD/TT: ? Ecommerce Marketing Manager: Procedure Note Radiology, Radiologist, MD - 12/17/2023 [place] [address] Ultrasound Report Signed Patient: AALIYAH CARVALHO JMR#: [id number] : 1995Acct:[id number] Age/Sex: 28 FADM Date: 12/16/23 Loc: [facility] Attending Dr: Robbin Stinson D.O. Ordering Physician: Robbin Stinson D.O. Date of Service: 12/16/23 Procedure(s): US OB anatomy Accession Number(s): [id number] cc: Robbin Stinson D.O.; Jay Sadler M.D. The [address] [place] [address] [address] Patient Name: AALIYAH CARVALHO MRN: [facility]:[id number] date: 1995 Sex: F Assigned Patient Location: [facility] Current Patient Location: Accession/Order Number: [id number] Exam Date: 12/16/2023 14:39 Report Date: 12/17/2023 06:24 At the request of: ROBBIN STINSON Procedure: US OB anatomy EXAMINATION: US [...] cerebral ventricles, orbits, midline falx, hard palate, four-chamberheart, RVOT, LVOT, stomach, kidneys, bladder, umbilical cord insertion intoabdomen, three-vessel cord, cervical spine, thoracic spine, lumbar spine, sacralspine, right upper extremity, left upper extremity, right lower extremity, leftlower extremity. SUBOPTIMALLY SEEN: None ABNORMALITIES: None BIOMETRY: [...] with growth detailed above. Electronically authenticated by: SIDNEY DELCID Date: 12/17/2023 06:24 Dictated By: Sidney Delcid M.D. Signed By:12/17/23626 DD/ 3 TD/TT: Ecommerce Marketing Manager: Authorizing ProviderResult TypeResult StatusCorey Shantell DOCLINISYNC IMAGINGFinal Result documented in this encounter Visit Diagnoses Not on filedocumented in this encounter Care Teams Team MemberRelationshipSpecialtyStart DateEnd Date Jay Sadler MD [address] [place] [address] PCP - GeneralFamily Medicine04/19/25documented as of this encounter
--- OUTSIDE RECORDS SUMMARY | 2025-08-09 19:58 | XMS_ITS | Patient Health Record ---
Author Organization [facility] [place] Address [address] [place] [address] Care Team Providers Care Equipment Superintendent Name Role Phone Yoav Sadler Primary Care Provider Allergies No Known Allergies Results Component Value Reference Range Notes XR HAND RT MIN 3V Reviewed date:10/25/2024 04:54:22 PM Interpretation: Performing Lab: Notes/Report: Source Facility: [place] [address] XRay Report Signed Patient: AALIYAH CARVALHO MR#: [id number] : 1995 Acct:[id number] Age/Sex: 29 / F ADM Date: 10/24/24 Loc: [facility] Attending Dr: Sidney Gottlieb M.D. Ordering Physician: Sidney Gottlieb M.D. Date of Service: 10/24/24 Procedure(s): XR hand RT min 3V Accession Number(s): [id number] cc: Sidney Gottlieb M.D.; Jay Sadler M.D. The [place] [id number] Patient Name: AALIYAH CARVALHO MRN: [facility]:[id number] date: 1995 Sex: F Assigned Patient Location: [facility] Current Patient Location: Accession/Order Number: [id number] Exam Date: 10/24/2024 11:10 Report Date: 10/25/2024 05:35 At the request of: SIDNEY GOTTLIEB Procedure: XR hand RT min 3V PROCEDURE: XR hand RT min 3V HISTORY: RIGHT HAND PAIN COMPARISON: None. FINDINGS: BONES:Slight atypical curvature of the second proximal phalanx suggesting remote fracture and healing. No acute fracture or dislocation. No significant degenerative joint disease. SOFT TISSUES:No visible soft tissue swelling. EFFUSION:None visible. OTHER: Negative. XR/XR hand RT min 3V IMPRESSION: 1. No acute findings or significant degenerative joint disease to account for patient's symptoms. Electronically authenticated by: SIDNEY DELCID Date: 10/25/2024 05:35 Dictated By: Sidney Delcid M.D. Signed By: 10/25/2438 DD/ TD/TT: Geodesy Teacher: Reason For Referral Reason possibel ganglion [facility] on palm Diagnosis 1 Left hand pain (M79. 642) Referral Organization [facility] Referring Provider First Name Yoav Referring Provider Last Name Viktoriya Referring Provider [facility] deejay Referred Provider Sidney Gottlieb Referred Provider Specialty Orthopedic S urgery Referral Priority Routine Reason blood in stool Diagnosis 1 Sacral pain (M53.3) Referral Organization [facility] Referring Provider First Name Yoav Referring Provider Last Name Viktoriya Referring [facility] Referred Provider Vini Combs Referred Provider Specialty General Surg umesh Referral Priority Routine Social History Tobacco Use: Social History Observation Description Date Details (start date - stop date) Never Smoker NA - NA Tobacco Use/Smoking Question Answer Notes Patient is a nonsmoker Alcohol Screen (Audit-C) Question Answer Notes Did you have a drink containing alcohol in the p ast year? No Htqnkm3YesbpzevcrdaboYwispdwuHTNWL-B (Standard) Question Answer Notes Did you have a drink containing alcohol in the p ast year? No Lfkqpr7CmwymlfkaroczpZfdjmnmb Problems Problem Type SNOMED Code ICD Code Onset Dates Problem Status W/U Status Risk Notes Problem Chronic serous otiti s media (57827982) Chronic serous otitis media, unspecified ear (H65.20) ActiveconfirmedProblemPolycystic kidney disease (00897464)Polycystic kidney, unspecified (Q61.3)ActiveconfirmedProblemWart (93642954)Wart (B07.9)Active confirmedProblemHypertension (19289188)Hypertension (I10)ActiveconfirmedProblem Gastroesophageal reflux disease (581382841)GERD (gastroesophageal reflux disease) (K21.9)ActiveconfirmedProblemAnxiety (87136107)Anxiety (F41.9)Active confirmedProblemMigraine (01230159)Migraine (G43.909)ActiveconfirmedProblem Arthralgia (97962899)Arthralgia (M25.50)ActiveconfirmedProblemPain of left hand (604287629422752)Left hand pain (M79.642)ActiveconfirmedProblemDeviated nasal septum (989320168)Deviated septum (J34.2)ActiveconfirmedProblemPain of right hand (050050108889078)Pain of right hand (M79.641)ActiveconfirmedProblemAcute bronchiolitis (2411597)Acute bronchiolitis (J21.9)ActiveconfirmedProblemSacral back pain (10110773)Sacral back pain (M53.3)ActiveconfirmedProblemPain in sacrum (finding) (0998729260)Sacral pain (M53.3)Activeconfirmed Vital Signs Blood pressure diastolic 64 mm Hg 07/03/2025 Sxncgi87 in07/03/2025lood pressure mbriihxq644 mm Hg07/03/20254894Mflozf600.2 lbs 07/03/2025BMI33.92 kg/m207/03/2025 Encounters Encounter Location Date Provider Diagnosis [facility] [address] [place] [address] 07/14/2025 Yoav Hoy Sacral back pain M53 .3 [facility] [address] [place] [address] 07/18/2025 Yoav Hoy [facility] [place] [address] 07/03/2025[facility] [place] [address]/12/2024oug HoyLeft hand pain M79.642 Assessments Encounter Date Diagnosis (ICD Code) Assessment Notes Treatment Notes Treatment Clinical Notes Section Notes 09/08/2024 Left hand pain (ICD-10 - M79.642 ) 07/03/2025Sacral pain (ICD-10 - M53.3)07/14/2025Sacral back pain (ICD-10 - M53.3)07/03/2025OtherRecommended to rest and use a heating pad on the area. Take NSAIDs for pain as needed Plan Of Treatment Pending Test Test Name Order Date MRI : Abdomen without Contrast 5 CMP (COMPLETE METABOLIC PANEL) 3 CMP (COMPLETE METABOLIC PANEL) 4 HEMOGLOBIN A1C (GLYCO) 05/02/2024 HEMOGLOBIN A1C (GLYCO) 06/17/2023 IRON, TOTAL 06/17/2023 LIPID PANEL (CHOL/TRIG/HDL/LDL) 06/17/20 23 CBC WITH DIFF 06/17/2023 CBC WITH DIFF 05/02/2024 VITAMIN D, 25 LEVEL (TOTAL) 06/17/2023 RHEUMATOID PANEL 06/17/2023 Insulin Level 06/17/2023 MRI Pelvis w/o Contrast 07/14/2025 SLE PROFILE A 06/17/2023 CT ABD and PELV W CON 07/03/2025 MRI BRAIN WO W CON 05/02/2024 THYROID PANEL (T4/TSH/FREE T3) 4 THYROID PANEL (T4/TSH/FREE T3) 3 Holter Monitor - 3 days up to 14 days Insurance Providers Payer Name Payer Address Payer Phone Subscriber Number Group Number Insured Name Patient Relationship to Insured Coverage Start Date Coverage End Date [employer] [address] [facility] [place] [phone] [id number] Desiree Carvalhoelf - patient is the insured Medical (General) History Medical History History ICD Code COVID-19 U07.1 Anxiety F41.9 Insomnia G47.00 Arthralgia M25.50 GERD (gastroesophageal reflux disease) K 21.9 Hypertension I10 Polycystic kidney disease, autosomal dom inant Q61.2 Sleep apnea G47.30 Surgical History Surgery Date(Month/Year) Colonoscopy & EGD Laproscopy Fatty Tumor Removal x8- ukrg9816HMEJUGUAKHLKX,UNDER 12YRSHospitalization History Reason Date(Month/Year) Child
--- OUTSIDE RECORDS SUMMARY | 2025-08-09 19:58 | XMS_ITS | Clinical Summary ---
Author Organization [facility] Address [address] [facility] [place] [address] Care Team Providers Care International Travel Consultant Name Role Phone Jay Sadler MD Primary Care Provider [phone] Allergies Active AllergyReactionsCriticalityNoted CwsfGlanpjurYhwhdgahpWyhlmfr42/13/2023 Medications MedicationSigDispense QuantityRefillsLast FilledStart DateEnd DateStatus Loratadine (Claritin) 10 MG capsule Take 10 mg by mouth DailyActive Active Problems ProblemNoted DateDiagnosed DateChronic nwlayspl01/18/2023ETD (Eustachian tube dysfunction), gqxsmtgok23/18/2023ilateral lower extremity edema09/09/2023 Congenital cystic kidney gqbwphb5809/09/2023yspareunia in nwwiut7009/09/2023 Fmrtjoexrnoqn74/13/5493Ljsvjgf87/13/2023Essential vuaiiwpnlcgo09/13/2023idney tlxffwf6209/09/2023olycystic kidney jhlozci2909/09/2023ERD (gastroesophageal reflux disease)09/09/2023 Resolved Problems ProblemNoted DateDiagnosed DateResolved DateAcute ohxfrwpuxslyk67/13/2023 09/09/2023 Encounters DateTypeDepartmentCare MhrdCujupczzaol18/12/2025 3:00 PM ESTProcedure Visit [facility] [address] [place] [address] Sharon Johnson PA Well woman exam with routine gynecological exam08/09/2025amboo flowsheet [facility] [address] [place] [address] Sharon Johnson PA 08/08/2025Travelfrom Last 3 Months Family History Medical HistoryRelationNameCommentsAnemiaMotherBobbi HillArrhythmiaMotherBobbi HillHypertensionMotherBobbi HillRheum arthritisMotherBobbi HillRelationName StatusCommentsFatherAliveMotherBobbi HillAlive Social History Tobacco UseTypesPacks/DayYears UsedDateSmoking Tobacco: NeverSmokeless Tobacco: Never Tobacco Cessation:Counseling Given: Not Answered Alcohol UseStandard Drinks/WeekCommentsNot Currently1 (1 standard drink = 0.6 oz pure alcohol)Only on special occasionsCommentsUnknownSex and Gender InformationValueDate RecordedSex Assigned at BirthNot on fileLegal SexFemale 12/10/2022 11:47 PM EDTGender IdentityNot on fileSexual OrientationNot on file Last Filed Vital Signs Vital SignReadingTime TakenCommentsBlood Rtehylan245/7008/09/2025 3:15 PM EST Pulse--Temperature--Respiratory Rate--Oxygen Saturation--Inhaled Oxygen Concentration--Ifkqfu16 kg (205 lb)08/09/2025 3:15 PM MINDcakyo930.2 cm (5' 7 ) 05/08/2025 9:33 AM EDTBody Mass Index32.11005/08/2025 9:33 AM EDT Plan of Treatment Not on file Insurance Care Teams Team MemberRelationshipSpecialtyStart DateEnd Date Jay Sadler MD [address] [place] [address] PCP - GeneralFamily Medicine04/19/25
--- OUTSIDE RECORDS SUMMARY | 2025-08-09 19:58 | XMS_ITS | Encounter Summary ---
Author Organization [facility] Address [address] [place] [address] Care Team Providers Care Supervisor Microwave Name Role Phone Jay Sadler MD Primary Care Provider [phone] Encounter Details DateTypeDepartmentCare Team (Latest Contact Info)Utqkaxfnkbc18/21/2024Clinisync Result Encounter [facility] External Department Unsolicited Robbin Stinson, DO [address] [facility] [address] [place], [place] [id number] Social History Tobacco UseTypesPacks/DayYears UsedDateSmoking Tobacco: NeverSmokeless [...] this encounter Procedures Procedure NamePriorityDate/TimeAssociated DiagnosisCommentsUS OB CERVICAL LENGTH 12/17/2023 6:24 AM EDT documented in this encounter Results * US OB CERVICAL LENGTH (12/17/2023 6:24 AM EDT)Anatomical RegionLaterality ModalityOtherSpecimen (Source)Anatomical Location / LateralityCollection Method / VolumeCollection TimeReceived Time12/17/2023 6:24 AM EDT Narrative 12/17/2023 6:27 AM EDT [facility] ?[address] ? [place] [address] ? Ultrasound Report ? Signed ? Patient: ROSS,AALIYAH J ? MR#: [id number] ?? : 1995 ?Acct:[id number] ?? Age/Sex: 28 / F ?ADM Date: 03/20/24 ?? Loc: [facility] ? Attending Dr: Robbin Stinson D.O. ? Ordering Physician: Robbin Stinson D.O. ?? Date of Service: 12/16/23 ?? Procedure(s): US OB cervical length ?? Accession Number(s): [id number] ? cc: Robbin Stinson D.O.; Jay Sadler M.D. ? [facility] ? [address] ? [place] [address] ? Patient Name: ?? AALIYAH CARVALHO ? MRN: [facility]:[id number] ? date: 1995 ?Sex: F ?? Assigned Patient Location: [facility] ?? Current Patient Location: ? Accession/Order Number: [id number] ?? Exam Date: 12/16/2023 ??14:39 ?Report Date: 12/17/2023 ??06:24 ? At the request of: ?? ROBBIN ??SHANTELL ? Procedure: ??US OB cervical length ? EXAMINATION: US OB anatomy, US OB [...] by current US: 04/23/2024 ? US/US OB cervical length ?? IMPRESSION: ? 1. Single live intrauterine with growth detailed above. ? Electronically authenticated by: SIDNEY ??FRANCA ?? Date: 12/17/2023 ??06:24 ? Dictated By: ?Sidney Delcid M.D. ? Signed By: ?12/17/23626 ? DD/ 0624 ? TD/TT: ? Legal Consultant: Procedure Note Radiology, Radiologist, - 12/17/2023 [place] [address] Ultrasound Report Signed Patient: AALIYAH CARVALHO JMR#: [id number] : 1995Acct:[id number] Age/Sex: 28 FADM Date: 12/16/23 Loc: [facility] Attending Dr: Robbin Stinson D.O. Ordering Physician: Robbin Stinson D.O. Date of Service: 12/16/23 Procedure(s): US OB cervical length Accession Number(s): [id number] cc: Robbin Stinson D.O.; Jay Sadler M.D. The [address] [address] Patient Name: AALIYAH CARVALHO MRN: [facility]:[id number] date: 1995 Sex: F Assigned Patient Location: [facility] Current Patient Location: Accession/Order Number: [id number] Exam Date: 12/16/2023 14:39 Report Date: 12/17/2023 06:24 At the request of: ROBBIN STINSON Procedure: US OB cervical length EXAMINATION: [...] Delcid M.D. Signed By:12/17/23626 DD/ 3 TD/TT: Legal Consultant: Authorizing ProviderResult TypeResult StatusCorey Shantell DOCLINISYNC IMAGINGFinal Result documented in this encounter Visit Diagnoses Not on filedocumented in this encounter Care Teams Team MemberRelationshipSpecialtyStart DateEnd Date Jay Sadler MD [address] [place] [phone] PCP - GeneralFamily Medicine04/19/25documented as of this encounter
--- OUTSIDE RECORDS SUMMARY | 2025-08-09 19:58 | XMS_ITS | Clinical Summary ---
Author Organization [facility] Address [id number] [address] [place] [address] Care Team Providers Care Glove Printer Name Role Phone Jay Sadler MD Primary Care Provider [phone] Allergies Active AllergyReactionsCriticalityNoted PewdByyexdmdHjbrlqcpxYxtxmwn70/13/2023 Medications MedicationSigDispense QuantityRefillsLast FilledStart DateEnd DateStatus NIFEdipine XL (PROCARDIA XL) 90 mg 24 hr tablet Take 1 tablet (90 mg total) by mouth in the morning. 90 tablet 5Active Social History Tobacco UseTypesPacks/DayYears UsedDateSmoking Tobacco: Never Assessed CommentsUnknownSex and Gender InformationValueDate RecordedSex Assigned at Not on fileLegal UekKbflun03/17/2024 10:10 AM EDTGender IdentityNot on file Sexual OrientationNot on file Last Filed Vital Signs Vital SignReadingTime TakenCommentsBlood Nwvencep703/78010/20/2024 3:33 PM EST Dszcl886410/20/2024 3:33 PM ESTTemperature--Respiratory Rate--Oxygen Saturation-- Inhaled Oxygen Concentration--Llhcmm04 kg (211 lb 9.6 oz)10/20/2024 3:31 PM EST Bvitko672.2 cm (5' 7 )10/20/2024 3:31 PM ESTBody Mass Index33.14010/20/2024 3:31 PM EST Plan of Treatment DateTypeDepartmentCare Team (Latest Contact Info)Nkcttdymace07/22/2026 4:00 PM ESTOffice Visit [facility] [address] [place] [address] Sam Bain MD [address] [place] [address] Health MaintenanceDue DateLast DoneCommentsDepression Nuxgthjsz65/15/2008Tobacco Fefccvrsc01/15/2008dult BMI Follow Up Plan2014Influenza Vibodku5005/29/2025 08/19/2019Adult BMI Ebqzggkpo37/23/08345410/20/2024Pap Smear/04/2024 DTaP,Tdap and Td Vaccines (2 - Tdap) Medical Devices Not on file Insurance Care Teams Team MemberRelationshipSpecialtyStart DateEnd Date Jay Sadler MD [address] [facility], [place] [address] [facility] Tff[facility]pkx40/16/24
--- OUTSIDE RECORDS SUMMARY | 2025-08-09 19:58 | XMS_ITS | Encounter Summary ---
Author Organization [facility] Address [address] [place] [address] Care Team Providers Care Lap Welder Name Role Phone Jay Sadler MD Primary Care Provider [phone] Encounter Details DateTypeDepartmentCare Team (Latest Contact Info)Dhjqxrqgoia20/19/2024Clinisync Result Encounter [facility] External Department Unsolicited Robbin Stinson, DO [address] [facility] [address] [place] [place], [place] [address] Social History Tobacco UseTypesPacks/DayYears UsedDateSmoking Tobacco: NeverSmokeless [...] this encounter Procedures Procedure NamePriorityDate/TimeAssociated DiagnosisCommentsUS OB BPP W NON-GXXNKE5103/16/2024 9:08 AM EDT documented in this encounter Results * US OB BPP W NON-STRESS (03/16/2024 9:08 AM EDT)Anatomical Region LateralityModalityOtherSpecimen (Source)Anatomical Location / Laterality Collection Method / VolumeCollection TimeReceived Time03/16/2024 9:08 AM EDT Narrative 03/16/2024 9:11 AM EDT [facility] ?[address] ? [place] [address] ? Ultrasound Report ? Signed ? Patient: ROSS,AALIYAH J ? MR#: [id number] ?? : 1995 ?Acct:[id number] ?? Age/Sex: 28 / F ?ADM Date: 06/19/24 ?? Loc: US ? Attending Dr: Robbin Stinson D.O. ? Ordering Physician: Robbin Stinson D.O. ?? Date of Service: 03/16/24 ?? Procedure(s): US OB BPP w non-stress ?? Accession Number(s): [id number] ? cc: Robbin Stinson D.O.; Jay Sadler M.D. ? [facility] ? [address] ? [place] [address] ? Patient Name: ?? AALIYAH CARVALHO ? MRN: [facility]:[id number] ? date: 1995 ?Sex: F ?? Assigned Patient Location: [facility] ?? Current Patient Location: ? Accession/Order Number: [id number] ?? Exam Date: 03/16/2024 ??07:51 ?Report Date: 03/16/2024 ??09:08 ? At the request of: ?? ROBBIN ??SHANTELL ? Procedure: ??US OB BPP w non-stress ? EXAMINATION: US OB BPP w non-stress ? HISTORY: History of kidney disease Z87.448 ? COMPARISON: Ultrasound OB growth 03/01/2024 ? TECHNIQUE: Ultrasound biophysical profile was performed in the radiology ?? department. ? BREATHING MOVEMENTS: 2 ?? GROSS BODY MOVEMENTS: 2 ?? TONE: 2 ?? QUALITATIVE AMNIOTIC FLUID VOLUME: 2 ? PRESENTATION: Cephalic ?? HEART RATE: 138 bpm. ?? AMNIOTIC FLUID VOLUME: 13.6 cm ?? GESTATIONAL AGE: 34 weeks 0 days ? CONCLUSION: ? Total biophysical profile score 8. ? Electronically authenticated by: SIDNEY ??FRANCA ?? Date: 03/16/2024 ??09:08 ? Dictated By: ?Sidney Delcid M.D. ? Signed By: ?03/16/24 0911 ? DD/ 0908 ? TD/TT: ? Bank Runner: Procedure Note Radiology, Radiologist, MD - 03/16/[address] [address] Ultrasound Report Signed Patient: AALIYAH CARVALHO JMR#: [id number] : 1995Acct:[id number] Age/Sex: 28 / FADM Date: 03/16/24 Loc: US Attending Dr: Robbin Stinson D.O. Ordering Physician: Robbin Stinson D.O. Date of Service: 03/16/24 Procedure(s): US OB BPP w non-stress Accession Number(s): [id number] cc: Robbin Stinson D.O.; Jay Sadler M.D. [address] [id number] Patient Name: AALIYAH CARVALHO MRN: [id number] date: 1995 Sex: F Assigned Patient Location: [facility] Current Patient Location: Accession/Order Number: [id number] Exam Date: 03/16/2024 07:51 Report Date: 03/16/2024 09:08 At the request of: ROBBIN STINSON Procedure: US OB BPP w non-stress [...] biophysical profile score 8. Electronically authenticated by: SIDNEY DELCID Date: 03/16/2024 09:08 Dictated By: Sidney Delcid M.D. Signed By:03/16/24910 DD/ 7 TD/TT: Bank Runner: Authorizing ProviderResult TypeResult StatusCorey Shantell DOCLINISYNC IMAGINGFinal Result documented in this encounter Visit Diagnoses Not on filedocumented in this encounter Care Teams Team MemberRelationshipSpecialtyStart DateEnd Date Jay Sadler MD [address] [place] [phone] PCP - GeneralFamily Medicine04/19/25documented as of this encounter
--- OUTSIDE RECORDS SUMMARY | 2025-08-09 19:58 | XMS_ITS | Encounter Summary ---
Author Organization [facility] Address [address] [place] [address] Care Team Providers Care Construction Lineman Name Role Phone Jay Sadler MD Primary Care Provider [phone] Encounter Details DateTypeDepartmentCare Team (Latest Contact Info)Rxyogocgkzg63/04/2024Clinisync Result Encounter [facility] External Department Unsolicited Robbin Stinson, DO [address] [facility] [place] [address] Social History Tobacco UseTypesPacks/DayYears UsedDateSmoking Tobacco: NeverSmokeless Tobacco: NeverAlcohol UseStandard Drinks/WeekCommentsNot Currently1 (1 standard drink = 0.6 oz pure alcohol)Only on special occasionsCommentsYesSex and Gender InformationValueDate RecordedSex Assigned at BirthNot on fileLegal SexFemale 12/10/2022 11:47 PM EDTGender IdentityNot on fileSexual OrientationNot on file documented as of this encounter Miscellaneous Notes * Result Encounter Note - Randi Arteaga LPN - 03/01/2024 12:47 PM EDT Pt notified and is going to schedule growth scan for two weeks. She is also going to schedule for NST/BPP documented in this encounter Plan of Treatment Not on file documented as of this encounter Procedures Procedure NamePriorityDate/TimeAssociated DiagnosisCommentsUS OB GROWTH 03/01/2024 12:43 PM EDT documented in this encounter Results * US OB GROWTH (03/01/2024 12:43 PM EDT)Anatomical RegionLateralityModalityOther Specimen (Source)Anatomical Location / LateralityCollection Method / Volume Collection TimeReceived Time03/01/2024 12:43 PM EDT Narrative 03/01/2024 12:45 PM EDT The [facility] ?[address] ? [place] [address] ? Ultrasound Report ? Signed ? Patient: ROSS,AALIYAH J ? MR#: [id number] ?? : 1995 ?Acct:[id number] ?? Age/Sex: 28 / F ?ADM Date: 03/01/24 ?? Loc: [facility] ? Attending Dr: Robbin Stinson D.O. ? Ordering Physician: Robbin Stinson D.O. ?? Date of Service: 03/01/24 ?? Procedure(s): US OB growth ?? Accession Number(s): [id number] ? cc: Robbin Stinson D.O.; Jay Sadler M.D. ? [facility] ? [address] [facility] ? [place] [address] ? Patient Name: ?? AALIYAH CARVALHO ? MRN: [facility]:[id number] ? date: 1995 ?Sex: F ?? Assigned Patient Location: [facility] ?? Current Patient Location: [facility] ?? Accession/Order Number: [id number] ?? Exam Date: 03/01/2024 ??09:51 ?Report Date: 03/01/2024 ??12:43 ? At the request of: ?? ROBBIN ??SHANTELL ? Procedure: ??US OB growth ? EXAMINATION: US OB growth ? HISTORY: HISTORY OF KIDNEY DISEASE AND PRE-ECLASMPSIA ? COMPARISON: Ultrasound OB anatomy 12/16/2023 ? FINDINGS: ? Heart Rate: 126.0 bpm ?? Number: 1.0 ?? Position: CEPHALIC ?? Amniotic Fluid Volume: 13.1 cm ?? Maximum Vertical Pocket: 4.4 cm ? BIOMETRY: ?? BPD: 8.4 cm cm; 33 weeks 5 days; 89% ?? HC: 30.9 cmcm; 34 weeks 3 days ; 82% ?? AC: 32.5 cm cm; 36 weeks 3 days; >97% FL: 6.6 cm cm; 34 weeks 0 days; 89% ?? EFW: 2643.7 grams; >97% FL/AC: 20.3 ?? FL/BPD: 79.0 ?? HC/AC: 1.0 ? GESTATIONAL AGE: ?? Age by EDC: 31 weeks 6 days ?? BEBE by EDC: 04/27/2024 ?? Age by US: 34 weeks 5 days ?? BEBE by US: 04/07/2024 ? US/US OB growth ?? IMPRESSION: ? 1. Single live intrauterine with growth detailed above. ?? 2. Estimated weight is greater than 97th percentile. ?? 3. Prominent appearance of the kidneys. Follow-up recommended. ? Dr. Stinson was notified of these findings by the engine watchman at time of ?? imaging. ? Electronically authenticated by: SIDNEY ??FRANCA ?? Date: 03/01/2024 ??12:43 ? Dictated By: ?Sidney Delcid M.D. ? Signed By: ?03/01/24 1245 ? DD/ 1243 ? TD/TT: ? Wire Roller: Procedure Note Radiology, Radiologist, MD - 03/01/20[address] [place] [address] Ultrasound Report Signed Patient: AALIYAH CARVALHO JMR#: [id number] : 1995Acct:[id number] Age/Sex: 28 FADM Date: 03/01/24 Loc: [facility] Attending Dr: Robbin Stinson D.O. Ordering Physician: Robbin Stinson D.O. Date of Service: 03/01/24 Procedure(s): US OB growth Accession Number(s): [id number] cc: Robbin Stinson D.O.; Jay Sadler M.D. The [address] [address] Patient Name: AALIYAH CARVALHO MRN: [facility]:[id number] date: 1995 Sex: F Assigned Patient Location: [facility] Current Patient Location: [facility] Accession/Order Number: [id number] Exam Date: 03/01/2024 09:51 Report Date: 03/01/2024 12:43 At the request of: ROBBIN STINSON Procedure: US OB growth EXAMINATION: US [...] was notified of these findings by the engine watchman at time of imaging. Electronically authenticated by: SIDNEY DELCID Date: 03/01/2024 12:43 Dictated By: Sidney Delcid M.D. Signed By:03/01/24 1245 DD/ 1243 TD/TT: Wire Roller: Authorizing ProviderResult TypeResult StatusCorey Shantell DOCLINISYNC IMAGINGFinal Result documented in this encounter Visit Diagnoses Not on filedocumented in this encounter Care Teams Team MemberRelationshipSpecialtyStart DateEnd Date Jay Sadler MD [address] [place] [address] PCP - GeneralFamily Medicine04/19/25documented as of this encounter
--- OUTSIDE RECORDS SUMMARY | 2025-08-09 19:58 | XMS_ITS | Encounter Summary ---
Author Organization [facility] Address [address] [facility] [place] [address] Care Team Providers Care Vendor Management Associate Name Role Phone Jay Sadler MD Primary Care Provider [phone] Encounter Details DateTypeDepartmentCare Team (Latest Contact Info)Ixxwehzcife53/11/2025Travel Social History Tobacco UseTypesPacks/DayYears UsedDateSmoking Tobacco: NeverSmokeless Tobacco: NeverAlcohol UseStandard Drinks/WeekCommentsNot Currently1 (1 standard drink = 0.6 oz pure alcohol)Only on special occasionsCommentsUnknownSex and Gender InformationValueDate RecordedSex Assigned at BirthNot on fileLegal Sex Wauvcg8312/10/2022 11:47 PM EDTGender IdentityNot on fileSexual OrientationNot on filedocumented as of this encounter Plan of Treatment Not on file documented as of this encounter Visit Diagnoses Not on filedocumented in this encounter Care Teams Team MemberRelationshipSpecialtyStart DateEnd Date Jay Sadler MD [address] [place] [address] PCP - GeneralFamily Medicine04/19/25documented as of this encounter
--- OUTSIDE RECORDS SUMMARY | 2025-08-09 19:58 | XMS_ITS | Encounter Summary ---
Author Organization [facility] Address [address] [place] [address] Care Team Providers Care Medical Auditor Name Role Phone Jay Sadler MD Primary Care Provider [phone] Encounter Details DateTypeDepartmentCare Team (Latest Contact Info)Opokmckhujt41/03/2024Clinisync Result Encounter [facility] External Department Unsolicited Robbin Stinson, DO [address] [facility] [address] [place], [place] [id number] Social History Tobacco UseTypesPacks/DayYears UsedDateSmoking Tobacco: NeverSmokeless Tobacco: NeverAlcohol UseStandard Drinks/WeekCommentsNot Currently1 (1 standard drink = 0.6 oz pure alcohol)Only on special occasionsCommentsYesSex and Gender InformationValueDate RecordedSex Assigned at BirthNot on fileLegal SexFemale 12/10/2022 11:47 PM EDTGender IdentityNot on fileSexual OrientationNot on file documented as of this encounter Plan of Treatment Not on file documented as of this encounter Procedures Procedure NamePriorityDate/TimeAssociated DiagnosisCommentsTBH URINE T PROTEIN CREAT DWKJGJmxbwdi94/03/2024 12:20 PM EDT TBH VORHUVJCDRJehflry58/03/2024 10:29 AM EDT SRMCOH PROTHROMBIN TIME INR W/O FHPGEcsnjxb37/03/2024 10:29 AM EDT MHPT VEYFIXAIPDWxeoeqo40/03/2024 10:29 AM EDT CCF XGKOexyfwf64/03/2024 10:29 AM EDT CCF FOEGUjhutdh42/03/2024 10:29 AM EDT [facility] KQLQshffbs46/03/2024 10:29 AM EDT ALL URIC SPZWQinonzq15/03/2024 10:29 AM EDT ALL CBC WITH AUTO ADFJOhrsblj52/03/2024 10:29 AM EDT ALL UVPQgtfbmi79/03/2024 10:29 AM EDT [facility] DRUG SCREEN RAPID (URINE)Tcumgor7203/30/2024 10:20 AM EDT OB GEUJXM7803/30/2024 9:17 AM EDT documented in this encounter Results * (ABNORMAL) TBH URINE T PROTEIN CREAT RATIO (03/30/2024 12:20 PM EDT)Component ValueRef RangeTest MethodAnalysis TimePerformed AtPathologist SignatureTOTAL PROTEIN URINE CIOAQB34.3(H)<=11.9 mg/dLTBHCREATININE URINE MYDJVJ458.0720.00 - 300.00 mg/dLTBHPROTEIN CREATININE RATIO URINE0.20TBHSpecimen (Source) Anatomical Location / LateralityCollection Method / VolumeCollection Time Received Time03/30/2024 12:20 PM EDT03/30/2024 3:35 PM EDT Narrative CLINISYNC - 03/30/2024 3:57 PM EDT Authorizing ProviderResult TypeResult StatusCorey Shantell DOCLINISYNCFinal Result Performing OrganizationAddressCity/State/ZIP CodePhone Number CLINISYNC TB * (ABNORMAL) MHPT FIBRINOGEN (03/30/2024 10:29 AM EDT)ComponentValueRef Range Test MethodAnalysis TimePerformed AtPathologist OwyhcclvbRDTRRDYWXA546(H)200 - 400 mg/dLTBHSpecimen (Source)Anatomical Location / LateralityCollection Method / VolumeCollection TimeReceived Time03/30/2024 10:29 AM EDT03/30/2024 10:33 AM EDT Narrative CLINISYNJ - 03/30/2024 11:36 AM EDT Authorizing ProviderResult TypeResult StatusCorey Shantell DOCLINISYNCFinal Result Performing OrganizationAddressCity/State/ZIP CodePhone Number [facility] * CCF APTT (03/30/2024 10:29 AM EDT)ComponentValueRef RangeTest MethodAnalysis TimePerformed AtPathologist SignaturePARTIAL THROMBOPLASTIN TIME25.222.3 - 36.2 secTBHSpecimen (Source)Anatomical Location / LateralityCollection Method / VolumeCollection TimeReceived Time03/30/2024 10:29 AM EDT03/30/2024 10:33 AM EDT Narrative CLINISYNJ - 03/30/2024 11:36 AM EDT Authorizing ProviderResult TypeResult StatusCorey Shantell DOCLINISYNCFinal Result Performing OrganizationAddressCity/State/ZIP CodePhone Number [facility] * SRMCOH PROTHROMBIN TIME INR W/O COUM (03/30/2024 10:29 AM EDT)ComponentValue Ref RangeTest MethodAnalysis TimePerformed AtPathologist SignaturePROTHROMBIN TIME9.99.0 - 11.6 secTTB INR0.93TBHComment: DESIRED INR: 2.0-3.0 CONDITIONS NOT LISTED BELOW 2.5-3.5 FOR PROSTHETIC HEART VALVE REPLACEMENT 2.5-3.5 RECURRENT THROMBOSIS Specimen (Source)Anatomical Location / LateralityCollection Method / Volume Collection TimeReceived Time03/30/2024 10:29 AM EDT03/30/2024 10:33 AM EDT Narrative CLINISYNJ - 03/30/2024 11:36 AM EDT Authorizing ProviderResult TypeResult StatusCorey Shantell DOCLINISYNCFinal Result Performing OrganizationAddressCity/State/ZIP CodePhone Number [facility] * CCF ALT (03/30/2024 10:29 AM EDT)ComponentValueRef RangeTest MethodAnalysis TimePerformed AtPathologist SignatureALANINE EEBXFDDCMIVHXYTU1558 - 59 U/LTBH Specimen (Source)Anatomical Location / LateralityCollection Method / Volume Collection TimeReceived Time03/30/2024 10:29 AM EDT03/30/2024 10:33 AM EDT Narrative CLINISYNJ - 03/30/2024 11:05 AM EDT Authorizing ProviderResult TypeResult StatusCorey Shantell DOCLINISYNCFinal Result Performing OrganizationAddressCity/State/ZIP CodePhone Number [facility] * [facility] AST (03/30/2024 10:29 AM EDT)ComponentValueRef RangeTest MethodAnalysis TimePerformed AtPathologist SignatureASPARTATE AMINO MAPFDMLKESH5673 - 37 U/L TBHSpecimen (Source)Anatomical Location / LateralityCollection Method / Volume Collection TimeReceived Time03/30/2024 10:29 AM EDT03/30/2024 10:33 AM EDT Narrative CLINISYNJ - 03/30/2024 11:05 AM EDT Authorizing ProviderResult TypeResult StatusCorey Shantell DOCLINISYNCFinal Result Performing OrganizationAddressCity/State/ZIP CodePhone Number [facility] * ALL URIC ACID (03/30/2024 10:29 AM EDT)ComponentValueRef RangeTest Method Analysis TimePerformed AtPathologist SignatureURIC ACID3.82.6 - 6.0 mg/dLTBH Specimen (Source)Anatomical Location / LateralityCollection Method / Volume Collection TimeReceived Time03/30/2024 10:29 AM EDT03/30/2024 10:33 AM EDT Narrative CLINISYNJ - 03/30/2024 11:05 AM EDT Authorizing ProviderResult TypeResult StatusCorey Shantell DOCLINISYNCFinal Result Performing OrganizationAddressCity/State/ZIP CodePhone Number CLINISYNC TB * (ABNORMAL) TBH CREATININE (03/30/2024 10:29 AM EDT)ComponentValueRef RangeTest MethodAnalysis TimePerformed AtPathologist SignatureCREATININE0.51(L)0.55 - 1.02 mg/dLTBHTBH EGFR-AF HAITIAN>60>=60TBHTBH EGFR-NON AF HAITIAN>60>=60TBH Specimen (Source)Anatomical Location / LateralityCollection Method / Volume Collection TimeReceived Time03/30/2024 10:29 AM EDT03/30/2024 10:33 AM EDT Narrative CLINISYNC - 03/30/2024 11:05 AM EDT Authorizing ProviderResult TypeResult StatusCorey Shantell DOCLINISYNCFinal Result Performing OrganizationAddressCity/State/ZIP CodePhone Number [facility] * (ABNORMAL) ALL BUN (03/30/2024 10:29 AM EDT)ComponentValueRef RangeTest Method Analysis TimePerformed AtPathologist SignatureBLOOD UREA NITROGEN6.0(L)7.0 - 18.0 mg/dLTBHSpecimen (Source)Anatomical Location / LateralityCollection Method / VolumeCollection TimeReceived Time03/30/2024 10:29 AM EDT03/30/2024 10:33 AM EDT Narrative CLINISYNJ - 03/30/2024 11:05 AM EDT Authorizing ProviderResult TypeResult StatusCorey Shantell DOCLINISYNCFinal Result Performing OrganizationAddressCity/State/ZIP CodePhone Number [facility] * (ABNORMAL) ALL CBC WITH AUTO DIFF (03/30/2024 10:29 AM EDT)ComponentValueRef RangeTest MethodAnalysis TimePerformed AtPathologist SignatureTBH WBC8.74.0 - 11.0 10 3/uLTBHTBH RBC3.99(L)4.20 - 5.40 10 6/uLTBHTBH HGB13.212.0 - 16.0 g/dL TBHTBH HCT38.636.0 - 48.0 %TBHTBH MCV96.781.0 - 99.0 fLTBHTBH MCH33.126.7 - 34.0 pgTBHTBH MCHC34.229.9 - 35.2 g/dLTBHTBH RDW12.711.0 - 15.0 %TBHTBH HLX240 150 - 450 10 3/uLTBHTBH MPV11.09.5 - 13.5 fLTBHNEUTROPHILS PERCENT AUTO83.8(H) 43.0 - 75.0 %TBHLYMPHOCYTES PERCENT AUTO9.8(L)20.5 - 60.0 %TBHMONOCYTES PERCENT AUTO4.21.7 - 12.0 %TBHTBH EO %1.60.9 - 7.0 %TBHBASOPHILS PERCENT AUTO 0.0(L)0.2 - 2.0 %TBHIMMATURE GRANULOCYTES PCT AUTO0.6(H)0.0 - 0.5 %TBH NEUTROPHILS ABSOLUTE AUTO7.3(H)1.4 - 6.5 10 3/uLTBHLYMPHOCYTES ABSOLUTE AUTO 0.9(L)1.2 - 3.8 10 3/uLTBHMONOCYTES ABSOLUTE AUTO0.40.3 - 0.8 10 3/uLTBHTBH EO #0.10.0 - 0.7 10 3/uLTBHBASOPHILS ABSOLUTE AUTO0.00.0 - 0.1 10 3/uLTBHIMMATURE GRANULOCYTES ABS AUTO0.05(H)0.00 - 0.03 10 3/uLTBHSpecimen (Source)Anatomical Location / LateralityCollection Method / VolumeCollection TimeReceived Time 03/30/2024 10:29 AM EDT03/30/2024 10:33 AM EDT Narrative CLINISYNC - 03/30/2024 10:50 AM EDT Authorizing ProviderResult TypeResult StatusCorey Shantell DOCLINISYNCFinal Result Performing OrganizationAddressCity/State/ZIP CodePhone Number CLINIS[facility]NC TB * TBH DRUG SCREEN RAPID (URINE) (03/30/2024 10:20 AM EDT)ComponentValueRef Range Test MethodAnalysis TimePerformed AtPathologist SignatureCANNABINOID SCREEN URINENEGATIVENEGATIVETBHPHENCYCLIDINE SCREEN URINENEGATIVENEGATIVETBHCOCAINE SCREEN URINENEGATIVENEGATIVETBHMETHAMPHETAMINES SCREEN URINENEGATIVENEGATIVE TBHOPIATE SCREEN URINENEGATIVENEGATIVETBHAMPHETAMINE SCREEN URINENEGATIVE NEGATIVETBHBENZODIAZEPINES SCREEN URINENEGATIVENEGATIVETBHTRICYCLIC ANTIDEPRESSANT URINENEGATIVENEGATIVETBHMETHADONE SCREEN URINENEGATIVENEGATIVE TBHBARBITURATES SCREEN URINENEGATIVENEGATIVETBHOXYCODONE SCREEN URINENEGATIVE NEGATIVETBHBUPRENORPHINE SCREEN URINENEGATIVENEGATIVETBHComment: DRUG CLASS TEST SYSTEM CUT-OFF CONCENTRATIONS ARE FOLLOWS: AMP (Amphetamine): 500 ng/mL BAR (Barbiturates): 200 ng/mL BZO (Benzodiazepines): 150 ng/mL BUP (Buprenorphine): 10 ng/mL TOMER (Cocaine): 150 ng/mL mAMP (Methamphetamine): 500 ng/mL MTD (Methadone): 200 ng/mL OPI (Opiates): 100 ng/mL OXY (Oxycodone): 100 ng/mL PCP (Phencyclidine): 25 ng/mL THC (Cannabinoids): 50 ng/mL TCA (Trycyclic Antidepressants): 300 ng/mL Specimen (Source)Anatomical Location / LateralityCollection Method / Volume Collection TimeReceived Time03/30/2024 10:20 AM EDT03/30/2024 10:40 AM EDT Narrative CLINISYNC - 03/30/2024 11:00 AM EDT Authorizing ProviderResult TypeResult StatusCorey Shantell DOCLINISYNCFinal Result Performing OrganizationAddressCity/State/ZIP CodePhone Number [facility] * US OB GROWTH (03/30/2024 9:17 AM EDT)Anatomical RegionLateralityModalityOther Specimen (Source)Anatomical Location / LateralityCollection Method / Volume Collection TimeReceived Time03/30/2024 9:17 AM EDT Narrative 03/30/2024 9:20 AM EDT [facility] ?[address] ? [place] [address] ? Ultrasound Report ? Signed ? Patient: AALIYAH CARVALHO ? MR#: [id number] ?? : 1995 ?Acct:[id number] ?? Age/Sex: 28 / F ?ADM Date: 03/30/24 ?? Loc: [facility] ??250-1 ? Attending Dr: Robbin Stinson D.O. ? Ordering Physician: Robbin Stinson D.O. ?? Date of Service: 03/30/24 ?? Procedure(s): US OB growth ?? Accession Number(s): [id number] ? cc: Robbin Stinson D.O.; Jay Sadler M.D. ? [facility] ? [address] ? [place] [address] ? Patient Name: ?? AALIYAH CARVALHO ? MRN: TBH:[id number] ? date: 1995 ?Sex: F ?? Assigned Patient Location: [facility] ?? Current Patient Location: [facility] ?? Accession/Order Number: [id number] ?? Exam Date: 03/30/2024 ??08:03 ?Report Date: 03/30/2024 ??09:17 ? At the request of: ?? ROBBIN ??SHANTELL ? Procedure: ??US OB growth ? EXAMINATION: US OB growth ? HISTORY: Pre-eclampsia in prior O09.299 ? COMPARISON: Ultrasound OB growth 03/01/2024 ? FINDINGS: ? Heart Rate: 134.33 bpm ?? Amniotic Fluid Volume: 15.6 cm (normal range) ?? Number: 1 ?? Position: CEPHALIC ? BIOMETRY: ?? BPD: 9.03 cm cm; ; 74.40 %% ?? HC: 33.35 cm cm; ; 71.20 %% ?? AC: 37.11 cm cm; ; 97 %% ?? FL: 7.16 cm cm; ; 64.20 %% ?? EFW: 3726.56 g; 97 % ?? FL/AC: 19.31 ?? FL/BPD: 79.34 ?? HC/AC: 0.90 ? GESTATIONAL AGE: ?? Age by EDC: 36 weeks 0 days ?? BEBE by EDC: 2024-04-27 ?? Age by US: 38 weeks 1 day ?? BEBE by US: 2024-04-12 ? US/US OB growth ?? IMPRESSION: ? 1. Single live intrauterine with growth detailed above. ?? 2. weight and abdominal circumference is greater than 97th percentile. ?? 3. Both kidneys appear prominent (5.5 x 2.9 x 3.4 cm on right; 5.5 x 2.7 x 3.6 ? cm on left). ? Electronically authenticated by: SIDNEY ??FRANCA ?? Date: 03/30/2024 ??09:17 ? Dictated By: ?Zieber,Sidney M.D. ? Signed By: ?03/30/24 0920 ? DD/ 09 ? TD/TT: ? Medical Equipment Repairer: Procedure Note Radiology, Radiologist, MD - 03/30/2024 [place] [address] Ultrasound Report Signed Patient: AALIYAH CARVALHO R#: [id number] : 1995Acct:[id number] Age/Sex: 28 / FADM Date: 03/30/24 Loc: [facility] 250-[address]: Robbin Stinson D.O. Ordering Physician: Robbin Stinson D.O. Date of Service: 03/30/24 Procedure(s): US OB growth Accession Number(s): [id number] cc: Robbin Stinson D.O.; Jay Sadler M.D. [address] [address] Patient Name: AALIYAH CARVALHO MRN: [facility]:[id number] date: 1995 Sex: F Assigned Patient Location: [facility] Current Patient Location: [facility] Accession/Order Number: [id number] Exam Date: 03/30/2024 08:03 Report Date: 03/30/2024 09:17 At the request of: ROBBIN STINSON Procedure: [...] weight and abdominal circumference is greater than 97thpercentile. 3. Both kidneys appear prominent (5.5 x 2.9 x 3.4 cm on right; 5.5 x 2.7 x3.6 cm on left). Electronically authenticated by: SIDNEY DELCID Date: 03/30/2024 09:17 Dictated By: Sidney Delcid M.D. Signed By:03/30/24919 DD/ 0917 TD/TT: Medical Equipment Repairer: Authorizing ProviderResult TypeResult StatusCorey Shantell DOCLINISYNC IMAGINGFinal Result documented in this encounter Visit Diagnoses Not on filedocumented in this encounter Care Teams Team MemberRelationshipSpecialtyStart DateEnd Date Jay Sadler MD [address] [place] [address] PCP - GeneralFamily Medicine04/19/25documented as of this encounter
--- OUTSIDE RECORDS SUMMARY | 2025-08-09 19:58 | XMS_ITS | Encounter Summary ---
Author Organization [facility] Address [address] [place] [address] Care Team Providers Care Product Info Specialist Name Role Phone Jay Sadler MD Primary Care Provider [phone] Encounter Details DateTypeDepartmentCare Team (Latest Contact Info)Amsavnlabqs66/26/2024Clinisync Result Encounter [facility] External Department Unsolicited Robbin Stinson, DO [address] [facility] [address] [place], [place] [id number] Social History Tobacco UseTypesPacks/DayYears UsedDateSmoking Tobacco: NeverSmokeless [...] Procedures Procedure NamePriorityDate/TimeAssociated DiagnosisCommentsUS OB BPP W NON-VSLMED8103/23/2024 8:58 AM EDT documented in this encounter Results * US OB BPP W NON-STRESS (03/23/2024 8:58 AM EDT)Anatomical Region LateralityModalityOtherSpecimen (Source)Anatomical Location / Laterality Collection Method / VolumeCollection TimeReceived Time03/23/2024 8:58 AM EDT Narrative 03/23/2024 9:01 AM EDT [facility] ?[address] ? [place] [address] ? Ultrasound Report ? Signed ? Patient: ROSS,AALIYAH J ? MR#: [id number] ?? : 1995 ?Acct:[id number] ?? Age/Sex: 28 / F ?ADM Date: 06/26/24 ?? Loc: US ? Attending Dr: Robbin Stinson D.O. ? Ordering Physician: Robbin Stinson D.O. ?? Date of Service: 03/23/24 ?? Procedure(s): US OB BPP w non-stress ?? Accession Number(s): [id number] ? cc: Robbin Stinson D.O.; Jay Sadler M.D. ? [facility] ? [address] ? [place] [address] ? Patient Name: ?? AALIYAH CARVALHO ? MRN: [facility]:[id number] ? date: 1995 ?Sex: F ?? Assigned Patient Location: [facility]BC ?? Current Patient Location: ? Accession/Order Number: [id number] ?? Exam Date: 03/23/2024 ??07:57 ?Report Date: 03/23/2024 ??08:58 ? At the request of: ?? ROBBIN ??EFREN ? Procedure: ??US OB BPP w non-stress ? EXAMINATION: US OB BPP w non-stress ? HISTORY: H/O PRE-ECLAMPSIA IN PRIOR O09.299 ? COMPARISON: 03/16/2024 ? TECHNIQUE: Ultrasound biophysical profile was performed in the radiology ?? department. ? FINDINGS: ?? BREATHING MOVEMENTS: 2 ?? GROSS BODY MOVEMENTS: 2 ?? TONE: 2 ? QUALITATIVE AMNIOTIC FLUID VOLUME: 2 ?? PRESENTATION: CEPHALIC ?? HEART RATE: 145.16 bpm ?? AMNIOTIC FLUID VOLUME: 15 cm ?? GESTATIONAL AGE: 35w0d ? US/US OB BPP w non-stress ?? IMPRESSION: ? Total biophysical profile score: 8 ? Electronically authenticated by: JUDY ??WEST ?? Date: 03/23/2024 ??08:58 ? Dictated By: ?Judy Womack M.D. ? Signed By: ?03/23/24 0901 ? DD/ 0858 ? TD/TT: ? Manager Gallery: Procedure Note Radiology, Radiologist, MD - 03/23/[address] [address] Ultrasound Report Signed Patient: AALIYAH CARVALHO JMR#: [id number] : 1995Acct:[id number] Age/Sex: 28 / FADM Date: 03/23/24 Loc: US Attending Dr: Robbin Stinson D.O. Ordering Physician: Robbin Stinson D.O. Date of Service: 03/23/24 Procedure(s): US OB BPP w non-stress Accession Number(s): [id number] cc: Robbin Stinson D.O.; Jay Sadler M.D. [place] [address] Patient Name: AALIYAH CARVALHO MRN: [id number] date: 1995 Sex: F Assigned Patient Location: [facility] Current Patient Location: Accession/Order Number: [id number] Exam Date: 03/23/2024 07:57 Report Date: 03/23/2024 08:58 At the request of: ROBBIN STINSON Procedure: [...] 08:58 Dictated By: Judy Womack M.D. Signed By:03/23/24900 DD/ 7 TD/TT: Manager Gallery: Authorizing ProviderResult TypeResult StatusCoremagnolia Stinson DOCLINISYNC IMAGINGFinal Result documented in this encounter Visit Diagnoses Not on filedocumented in this encounter Care Teams Team MemberRelationshipSpecialtyStart DateEnd Date Jay Sadler MD [address] [place] [address] PCP - GeneralFamily Medicine04/19/25documented as of this encounter
--- OUTSIDE RECORDS SUMMARY | 2025-08-09 19:58 | XMS_ITS | Encounter Summary ---
Author Organization [facility] Address [address] [place] [address] Care Team Providers Care Branch Services Manager Name Role Phone Jay Sadler MD Primary Care Provider [phone] Encounter Details DateTypeDepartmentCare Team (Latest Contact Info)Nmrshlmmeqf29/03/2024Clinisync Result Encounter [facility]S External Department Unsolicited Robbin Stinson, DO [address] [facility] [address] [place], [place] [address] Social History Tobacco UseTypesPacks/DayYears UsedDateSmoking Tobacco: NeverSmokeless [...] Procedures Procedure NamePriorityDate/TimeAssociated DiagnosisCommentsUS OB BPP W NON-CUCRZX0103/30/2024 9:13 AM EDT documented in this encounter Results * US OB BPP W NON-STRESS (03/30/2024 9:13 AM EDT)Anatomical Region LateralityModalityOtherSpecimen (Source)Anatomical Location / Laterality Collection Method / VolumeCollection TimeReceived Time03/30/2024 9:13 AM EDT Narrative 03/30/2024 9:16 AM EDT [facility] ?[address] ? [place] [address] ? Ultrasound Report ? Signed ? Patient: ROSS,AALIYAH J ? MR#: [id number] ?? : 1995 ?Acct:[id number] ?? Age/Sex: 28 / F ?ADM Date: 07/03/24 ?? Loc: FBC ??250-1 ? Attending Dr: Robbin Stinson D.O. ? Ordering Physician: Robbin Stinson D.O. ?? Date of Service: 03/30/24 ?? Procedure(s): US OB BPP w non-stress ?? Accession Number(s): [id number] ? cc: Robbin Stinson D.O.; Jay Sadler M.D. ? [facility] ? [address] ? [place] [address] ? Patient Name: ?? AALIYAH CARVALHO ? MRN: [facility]:[id number] ? date: 1995 ?Sex: F ?? Assigned Patient Location: FBC ?? Current Patient Location: [facility] ?? Accession/Order Number: [id number] ?? Exam Date: 03/30/2024 ??08:03 ?Report Date: 03/30/2024 ??09:13 ? At the request of: ?? ROBBIN ??EFREN ? Procedure: ??US OB BPP w non-stress ? EXAMINATION: US OB BPP w non-stress ? HISTORY:History of kidney disease Z87.448 ? COMPARISON: No relevant comparison available. ? TECHNIQUE: Ultrasound biophysical profile was performed in the radiology ?? department. ? BREATHING MOVEMENTS: 2 ?? GROSS BODY MOVEMENTS: 2 ?? TONE: 2 ?? QUALITATIVE AMNIOTIC FLUID VOLUME: 2 ? PRESENTATION: CEPHALIC ?? HEART RATE: 134.33 bpm ?? AMNIOTIC FLUID VOLUME: 15.64 cm ?? GESTATIONAL AGE: 89 Day ? US/US OB BPP w non-stress ?? IMPRESSION: ? Total biophysical profile score: 8 ? Electronically authenticated by: SIDNEY ??FRANCA ?? Date: 03/30/2024 ??09:13 ? Dictated By: ?Sidney Delcid M.D. ? Signed By: ?03/30/24 0916 ? DD/ 0913 ? TD/TT: ? Director Marketing Analytics: Procedure Note Radiology, Radiologist, MD - 03/30/[address] [address] Ultrasound Report Signed Patient: AALIYAH CARVALHO JMR#: [id number] : 1995Acct:[id number] Age/Sex: 28 / FADM Date: 03/30/24 Loc: [facility] 250-[address]: Robbin Stinson D.O. Ordering Physician: Robbin Stinson D.O. Date of Service: 03/30/24 Procedure(s): US OB BPP w non-stress Accession Number(s): [id number] cc: Robbin Stinson D.O.; Jay Sadler M.D. [place] [address] Patient Name: AALIYAH CARVALHO MRN: [id number] date: 1995 Sex: F Assigned Patient Location: [facility] Current Patient Location: [facility] Accession/Order Number: [id number] Exam Date: 03/30/2024 08:03 Report Date: 03/30/2024 09:13 At the request of: ROBBIN STINSON Procedure: [...] biophysical profile score: 8 Electronically authenticated by: SIDNEY DELCID Date: 03/30/2024 09:13 Dictated By: Sidney Delcid M.D. Signed By:03/30/24915 DD/ 2 TD/TT: Director Marketing Analytics: Authorizing ProviderResult TypeResult StatusCoremagnolia Stinson DOCLINISYNC IMAGINGFinal Result documented in this encounter Visit Diagnoses Not on filedocumented in this encounter Care Teams Team MemberRelationshipSpecialtyStart DateEnd Date Jay Sadler MD [address] [place] [address] PCP - GeneralFamily Medicine04/19/25documented as of this encounter
--- OUTSIDE RECORDS SUMMARY | 2025-08-09 19:58 | XMS_ITS | Patient Health Record ---
Author Organization [facility] Address [address] [place] [address] Care Team Providers Care Cloth Worker Name Role Phone Jay Sadler Primary Care Provider [facility] [phone] Allergies No Known Allergies Results Component Value Reference Range Notes SCC- HAND 3 VIEW RIGHT 91003 Reviewed date:11/03/2024 04:38:50 PM Interpretation: Performing Lab: Notes/Report: Reason For Referral No Information Medications Medication SIG (Take, Route, Frequency, Duration) Notes Start Date End Date Status NIFEdipine 10 mg 1 cap(s) orally 3 times a day Active Social History AUDIT-C (Standard) Question Answer Notes Did you have a drink containing alcohol in the p ast year? Yes How often did you have six or more drinks on one occasion in the past year? Declined to specify (0 point)How many drinks did you have on a typical day when you were drinking in the past year?Declined to specify (0 point)How often did you have a drink containing alcohol in the past year?Declined to specify (0 point)Qilwmd8SsjdarurzaptsvIltcitfq Vital Signs Height 5ft7in in 10/24/2024 Crjmce466 lbs5BMI32.57010/24/2024 Encounters Encounter Location Date Provider Diagnosis [facility] [facility] [address] [place] [address] [address] [place] [address] 10/24/2024 Sidney Plummer Pain in right hand M79.641 Assessments Encounter Date Diagnosis (ICD Code) Assessment Notes Treatment Notes Treatment Clinical Notes Section Notes 10/24/2024 Pain in right hand (ICD-10 - M79 .641) 10/24/2024Other I have discussed with the patient that her right hand palmar mass likely represents a cyst. She is asymptomatic and is interested in observing. I have discussed the option of surgical intervention. Her plan will be to continue to observe. She will follow-up in 6 months to reassess the mass. Import medication Plan Of Treatment No Information Insurance Providers Payer Name Payer Address Payer Phone Subscriber Number Group Number Insured Name Patient Relationship to Insured Coverage Start Date Coverage End Date [address] [place] [phone] [id number] RACHEAL CARVALHO Self - patient is the insured Medical (General) History Medical History History ICD Code Kidney trouble High Blood PressureAnxietySurgical History Surgery Date(Month/Year) Colonoscopy 2017 Fatty tumor 2011 Tonsillectomy/Adenoidectomy 2004
--- OUTSIDE RECORDS SUMMARY | 2025-08-09 19:58 | XMS_ITS | Clinical Summary ---
Author Organization [facility] Address [address] [place] [address] Phone Care Team Providers Care Biological Science Technician Fish Name Role Phone Jay Sadler MD Primary Care Provider [phone] Social History Tobacco UseTypesPacks/DayYears UsedDateSmoking Tobacco: Never Assessed CommentsUnknownSex and Gender InformationValueDate RecordedSex Assigned at Not on fileLegal LddDkpkov68/26/2022 4:22 AM ESTGender IdentityNot on fileSexual OrientationNot on file Plan of Treatment Not on file Care Teams Team MemberRelationshipSpecialtyStart DateEnd Date Jay Sadler MD [address] [place] [address] PCP - General04/28/19
== END 2025-08-09 19:54 | disposition home or self-care (01) ==
LOC: LAB 19:53
PROVIDERS: PCP Family Medicine; Visit Provider Physician Assistant
DX: Z01.419 Encounter for gynecological examination (general) (routine) without abnormal findings (principal)
CPT/HCPCS: 88175

== ENCOUNTER 2025-08-10 12:23 | Outpatient (OUT) | payer OTHER, SELFPAY ==
--- OUTSIDE RECORDS SUMMARY | 2025-08-09 15:00 | XMS_ITS | Encounter Summary ---
Author Organization [facility] Address [address] [facility] [place] [address] Care Team Providers Care Anode Rebuilder Name Role Phone Jay Sadler MD Primary Care Provider [phone] Reason for Visit * ReasonCommentsWell Women Visit Encounter Details DateTypeDepartmentCare Team (Latest Contact Info)Lzizecpgojz10/12/2025 3:00 PM ESTProcedure Visit [facility] [address] [phone] Sharon Johnson PA [address] [facility] [address] [place], [place] [address] Well woman exam with routine gynecological exam Social History Tobacco UseTypesPacks/DayYears UsedDateSmoking Tobacco: NeverSmokeless Tobacco: NeverAlcohol UseStandard Drinks/WeekCommentsNot Currently1 (1 standard drink = 0.6 oz pure alcohol)Only on special occasionsCommentsUnknownSex and Gender InformationValueDate RecordedSex Assigned at BirthNot on fileLegal Sex Ptmxxa1512/10/2022 11:47 PM EDTGender IdentityNot on fileSexual OrientationNot on filedocumented as of this encounter Last Filed Vital Signs Vital SignReadingTime TakenCommentsBlood Kxmvwnqu139/7008/09/2025 3:15 PM EST Pulse--Temperature--Respiratory Rate--Oxygen Saturation--Inhaled Oxygen Concentration--Hvkkfd41 kg (205 lb)08/09/2025 3:15 PM ESTHeight--Body Mass [...] nursing note reviewed. Exam conducted with a office clerk routine present. Vitals: Estimated body mass index is [...] DateEnd Date Jay Sadler MD [address] [place] [address] PCP - GeneralFamily Medicine04/19/25documented as of this encounter
--- NOTE | 2025-08-10 | MR_ITS ---
The [place] [id number] Patient Name: RACHEAL CARVALHO MRN: [facility]:[id number] date: 1995 Sex: F Assigned Patient Location: MRI Current Patient Location: MRI Accession/Order Number: [id number] Exam Date: 08/10/2025 12:35 Report Date: 08/10/2025 15:53 At the request of: LYLY YOUSIF MD Procedure: MR pelvis wo con MR pelvis wo con 08/10/2025 1:40 PM SIGNS AND SYMPTOMS: ^SACRAL BACK PAIN M 53.3 PROTOCOL: Multiplanar multisequence MR images of the pelvis without IV contrast COMPARISON: None. FINDINGS: Alignment: Normal. Femoroacetabular impingement anatomy: None. Dysplasia: None. Fluid: No joint effusion. Labrum: Grossly intact. Cartilage: Femoral: Preserved. Acetabular: Preserved. Capsule/ligaments: Normal. Muscles/tendons/entheses: Flexors: Normal. Extensors: Normal. Abductors: Normal. Adductors: Normal. Rotators: Normal. Hamstrings: Normal. Bones (other than subarticular marrow): There is a small amount of edema along the left sacral ala and just above the joint. This may represent sacroiliitis. Fatty marrow change right sacral ala suggesting more chronic inflammatory process. Sclerotic changes are noted along the iliac side of the sacroiliac joints bilaterally. Vessels: Normal. Nerves: Visualized bilateral sciatic and femoral nerves appear normal. Soft tissues: Normal. Viscera: Visualized pelvic structures appear normal. No lymphadenopathy by size criteria. Small amount of free fluid is noted in the pelvis which is presumably physiologic. MR/MR pelvis wo con IMPRESSION: Findings are suggestive acute sacroiliitis on the left and a chronic of degenerative process of the right sacroiliac joint. Small amount of free fluid is noted in the pelvis which is presumably physiologic. Impression dictated by: Kvng Rivera M.D. 08/10/2025 3:53 PM Dictation Location: [place] [address] Electronically authenticated by: [id number] Y Date: 08/10/2025 15:53
--- OUTSIDE RECORDS SUMMARY | 2025-08-10 12:27 | XMS_ITS | Encounter Summary ---
Author Organization [facility] Address [address] [facility] [place] [address] Care Team Providers Care Auto Body Repair Technician Name Role Phone Jay Sadler MD Primary Care Provider [phone] Encounter Details DateTypeDepartmentCare Team (Latest Contact Info)Zdpzgvxphmj31/12/2025Bamboo flowsheet [facility] [place] [facility] [address] [place] [phone] Sharon Johnson PA [address] [facility] [address] [place], [facility] Social History Tobacco UseTypesPacks/DayYears UsedDateSmoking Tobacco: NeverSmokeless Tobacco: NeverAlcohol UseStandard Drinks/WeekCommentsNot Currently1 (1 standard drink = 0.6 oz pure alcohol)Only on special occasionsCommentsUnknownSex and Gender InformationValueDate RecordedSex Assigned at BirthNot on fileLegal Sex Jgkmuw5012/10/2022 11:47 PM EDTGender IdentityNot on fileSexual OrientationNot on filedocumented as of this encounter Plan of Treatment Not on file documented as of this encounter Visit Diagnoses Not on filedocumented in this encounter Care Teams Team MemberRelationshipSpecialtyStart DateEnd Date Jay Sadler MD [address] [facility] [address] PCP - GeneralFamily Medicine04/19/25documented as of this encounter
--- OUTSIDE RECORDS SUMMARY | 2025-08-10 12:27 | XMS_ITS | Encounter Summary ---
Author Organization [facility] Address [address] [place] [address] Care Team Providers Care Bulb Weeder Name Role Phone Jay Sadler MD Primary Care Provider [phone] Encounter Details DateTypeDepartmentCare Team (Latest Contact Info)Wwudfxhyzxl75/03/2024Clinisync Result Encounter [facility] External Department Unsolicited Robbin Stinson, DO [address] [facility] [address] [place] [place], [place] [address] Social History Tobacco UseTypesPacks/DayYears UsedDateSmoking Tobacco: NeverSmokeless [...] Procedures Procedure NamePriorityDate/TimeAssociated DiagnosisCommentsUS OB BPP W NON-OEGBVU5603/30/2024 9:13 AM EDT documented in this encounter Results * US OB BPP W NON-STRESS (03/30/2024 9:13 AM EDT)Anatomical Region LateralityModalityOtherSpecimen (Source)Anatomical Location / Laterality Collection Method / VolumeCollection TimeReceived Time03/30/2024 9:13 AM EDT Narrative 03/30/2024 9:16 AM EDT The [facility] ?[address] ? [place] [address] ? Ultrasound Report ? Signed ? Patient: ROSS,AALIYAH J ? MR#: [id number] ?? : 1995 ?Acct:[id number] ?? Age/Sex: 28 / F ?ADM Date: 07/03/24 ?? Loc: [facility] ??250-1 ? Attending Dr: Robbin Stinson D.O. ? Ordering Physician: Robbin Stinson D.O. ?? Date of Service: 03/30/24 ?? Procedure(s): US OB BPP w non-stress ?? Accession Number(s): [id number] ? cc: Robbin Stinson D.O.; Jay Sadler M.D. ? [facility] ? [address] ? [place] [address] ? Patient Name: ?? AALIYAH CARVALHO ? MRN: [facility]:[id number] ? date: 1995 ?Sex: F ?? Assigned Patient Location: [facility] ?? Current Patient Location: [facility] ?? Accession/Order Number: [id number] ?? Exam Date: 03/30/2024 ??08:03 ?Report Date: [...] 0916 ? DD/ 0913 ? TD/TT: ? Lokie Engineer: Procedure Note Radiology, Radiologist, MD - 03/30/[address] [address] Ultrasound Report Signed Patient: AALIYAH CARVALHO JMR#: [id number] : 1995Acct:[id number] Age/Sex: 28 / FADM Date: 03/30/24 Loc: [facility] 250-[address]: Robbin Stinson D.O. Ordering Physician: Robbin Stinson D.O. Date of Service: 03/30/24 Procedure(s): US OB BPP w non-stress Accession Number(s): [id number] cc: Robbin Stinson D.O.; Jay Sadler M.D. [place] [address] Patient Name: AALIYAH CARVALHO MRN: [id number] date: 1995 Sex: F Assigned Patient Location: [facility] Current Patient Location: [facility] Accession/Order Number: [id number] Exam Date: 03/30/2024 08:03 Report Date: 03/30/2024 [...] Delcid M.D. Signed By:03/30/24915 DD/ 2 TD/TT: Lokie Engineer: Authorizing ProviderResult TypeResult StatusCoremagnolia Stinson DOCLINISYNC IMAGINGFinal Result documented in this encounter Visit Diagnoses Not on filedocumented in this encounter Care Teams Team MemberRelationshipSpecialtyStart DateEnd Date Jay Sadler MD [address] [place] [address] PCP - GeneralFamily Medicine04/19/25documented as of this encounter
--- OUTSIDE RECORDS SUMMARY | 2025-08-10 12:27 | XMS_ITS | Encounter Summary ---
Author Organization [facility] Address [address] [place] [address] Care Team Providers Care Shirt Cleaner Name Role Phone Jay Sadler MD Primary Care Provider [phone] Encounter Details DateTypeDepartmentCare Team (Latest Contact Info)Aqbxutklpbw27/21/2024Clinisync Result Encounter [facility] External Department Unsolicited Robbin Stinson, DO [address] [facility] [address] [place] [place], [place] [address] Social History Tobacco UseTypesPacks/DayYears UsedDateSmoking Tobacco: NeverSmokeless [...] EDT Narrative 12/17/2023 6:27 AM EDT The [facility] ?[address] ? [place] [address] ? Ultrasound Report ? Signed ? Patient: ROSS,AALIYAH J ? MR#: [id number] ?? : 1995 ?Acct:[id number] ?? Age/Sex: 28 / F ?ADM Date: 03/20/24 ?? Loc: [facility] ? Attending Dr: Robbin Stinson D.O. ? Ordering Physician: Robbin Stinson D.O. ?? Date of Service: 12/16/23 ?? Procedure(s): US OB cervical length ?? Accession Number(s): [id number] ? cc: Robbin Stinson D.O.; Jay Sadler M.D. ? The [facility] ? [address] ? [place] [address] ? Patient Name: ?? AALIYAH CARVALHO ? MRN: [facility]:[id number] ? date: 1995 ?Sex: F ?? Assigned Patient Location: [facility] ?? Current Patient Location: ? Accession/Order Number: [id number] ?? Exam Date: 12/16/2023 ??14:39 ?Report Date: [...] ?12/17/23626 ? DD/ 0624 ? TD/TT: ? Stock Broker Supervisor: Procedure Note Radiology, Radiologist, - 12/17/2023 [place] [address] Ultrasound Report Signed Patient: AALIYAH CARVALHO JMR#: [id number] : 1995Acct:[id number] Age/Sex: 28 FADM Date: 12/16/23 Loc: [facility] Attending Dr: Robbin Stinson D.O. Ordering Physician: Robbin Stinson D.O. Date of Service: 12/16/23 Procedure(s): US OB cervical length Accession Number(s): [id number] cc: Robbin Stinson D.O.; Jay Sadler M.D. The [address] [address] Patient Name: AALIYAH CARVALHO MRN: [facility]:[id number] date: 1995 Sex: F Assigned Patient Location: [facility] Current Patient Location: Accession/Order Number: [id number] Exam Date: 12/16/2023 14:39 Report Date: 12/17/2023 [...] Delcid M.D. Signed By:12/17/23626 DD/ 3 TD/TT: Stock Broker Supervisor: Authorizing ProviderResult TypeResult StatusCorey Shantell DOCLINISYNC IMAGINGFinal Result documented in this encounter Visit Diagnoses Not on filedocumented in this encounter Care Teams Team MemberRelationshipSpecialtyStart DateEnd Date Jay Sadler MD [address] [place] [address] PCP - GeneralFamily Medicine04/19/25documented as of this encounter
--- OUTSIDE RECORDS SUMMARY | 2025-08-10 12:27 | XMS_ITS | Encounter Summary ---
Author Organization [facility] Address [address] [place] [address] Care Team Providers Care Loss Prevention Analyst Name Role Phone Jay Sadler MD Primary Care Provider [phone] Encounter Details DateTypeDepartmentCare Team (Latest Contact Info)Qplgdtrfjih47/11/2025Travel Social History Tobacco UseTypesPacks/DayYears UsedDateSmoking Tobacco: NeverSmokeless Tobacco: NeverAlcohol UseStandard Drinks/WeekCommentsNot Currently1 (1 standard drink = 0.6 oz pure alcohol)Only on special occasionsCommentsUnknownSex and Gender InformationValueDate RecordedSex Assigned at BirthNot on fileLegal Sex Rvsjpm3512/10/2022 11:47 PM EDTGender IdentityNot on fileSexual OrientationNot on filedocumented as of this encounter Plan of Treatment Not on file documented as of this encounter Visit Diagnoses Not on filedocumented in this encounter Care Teams Team MemberRelationshipSpecialtyStart DateEnd Date Jay Sadler MD [address] [place] [address] PCP - GeneralFamily Medicine04/19/25documented as of this encounter
--- OUTSIDE RECORDS SUMMARY | 2025-08-10 12:27 | XMS_ITS | Encounter Summary ---
Author Organization [facility] Address [address] [place] [address] Care Team Providers Care Block And Case Maker Name Role Phone Jay Sadler MD Primary Care Provider [phone] Encounter Details DateTypeDepartmentCare Team (Latest Contact Info)Jacurnridon47/21/2024Clinisync Result Encounter [facility] External Department Unsolicited Robbin Stinson, DO [address] [facility] [address] [place], [place] [address] Social History Tobacco UseTypesPacks/DayYears UsedDateSmoking Tobacco: NeverSmokeless [...] EDT Narrative 12/17/2023 6:27 AM EDT The [facility] ?[address] ? [place] [address] ? Ultrasound Report ? Signed ? Patient: ROSS,AALIYAH J ? MR#: [id number] ?? : 1995 ?Acct:[id number] ?? Age/Sex: 28 / F ?ADM Date: 03/20/24 ?? Loc: [facility] ? Attending Dr: Robbin Stinson D.O. ? Ordering Physician: Robbin Stinson D.O. ?? Date of Service: 12/16/23 ?? Procedure(s): US OB anatomy ?? Accession Number(s): [id number] ? cc: Robbin Stinson D.O.; Jay Sadler M.D. ? The [facility] ? [address] ? [place] [address] ? Patient Name: ?? AALIYAH CARVALHO ? MRN: [facility]:[id number] ? date: 1995 ?Sex: F ?? Assigned Patient Location: [facility] ?? Current Patient Location: ? Accession/Order Number: [id number] ?? Exam Date: 12/16/2023 ??14:39 ?Report Date: [...] ?12/17/23626 ? DD/ 0624 ? TD/TT: ? Steam Locomotive Firer/Fireman: Procedure Note Radiology, Radiologist, MD - 12/17/2023 [place] [address] Ultrasound Report Signed Patient: AALIYAH CARVALHO JMR#: [id number] : 1995Acct:[id number] Age/Sex: 28 FADM Date: 12/16/23 Loc: [facility] Attending Dr: Robbin Stinson D.O. Ordering Physician: Robbin Stinson D.O. Date of Service: 12/16/23 Procedure(s): US OB anatomy Accession Number(s): [id number] cc: Robbin Stinson D.O.; Jay Sadler M.D. The [address] [address] Patient Name: AALIYAH CARVALHO MRN: [id number] date: 1995 Sex: F Assigned Patient Location: [facility] Current Patient Location: Accession/Order Number: [id number] Exam Date: 12/16/2023 14:39 Report Date: 12/17/2023 [...] Delcid M.D. Signed By:12/17/23626 DD/ 3 TD/TT: Steam Locomotive Firer/Fireman: Authorizing ProviderResult TypeResult StatusCorey Shantell DOCLINISYNC IMAGINGFinal Result documented in this encounter Visit Diagnoses Not on filedocumented in this encounter Care Teams Team MemberRelationshipSpecialtyStart DateEnd Date Jay Sadler MD [address] [place] [address] PCP - GeneralFamily Medicine04/19/25documented as of this encounter
--- OUTSIDE RECORDS SUMMARY | 2025-08-10 12:27 | XMS_ITS | Clinical Summary ---
Author Organization [facility] Address [address] [facility] [place] [address] Care Team Providers Care Quality Project Manager Name Role Phone Jay Sadler MD Primary Care Provider [phone] Allergies Active AllergyReactionsCriticalityNoted PkizKbphbzqlLsqyskdonDxhofhy30/13/2023 Medications MedicationSigDispense QuantityRefillsLast FilledStart DateEnd DateStatus Loratadine (Claritin) 10 MG capsule Take 10 mg by mouth DailyActive Active Problems ProblemNoted DateDiagnosed DateChronic /18/2023ETD (Eustachian tube dysfunction), negeoqdge49/18/2023ilateral lower extremity edema09/09/2023 Congenital cystic kidney absiwlb4909/09/2023yspareunia in dpgzkq1709/09/2023 Lquwzqamntafr59/13/6971Wmjjnff50/13/2023Essential ilquqyjkhihr44/13/2023idney wrhezns4109/09/2023olycystic kidney xmovuip6609/09/2023ERD (gastroesophageal reflux disease)09/09/2023 Resolved Problems ProblemNoted DateDiagnosed DateResolved DateAcute qquygfeajxwux19/13/2023 09/09/2023 Encounters DateTypeDepartmentCare FapfHtftplovrhk59/12/2025 3:00 PM ESTProcedure Visit [facility] [place] [facility] [address] [place] [address] Sharon Johnson PA Well woman exam with routine gynecological exam08/09/2025amboo flowsheet [facility] [place] [facility] [address] [place] [address] Sharon Johnson PA 08/08/2025Travelfrom Last 3 [...] Last Filed Vital Signs Vital SignReadingTime TakenCommentsBlood Latdlhpg863/7008/09/2025 3:15 PM EST Pulse--Temperature--Respiratory Rate--Oxygen Saturation--Inhaled Oxygen Concentration--Aumada45 kg (205 lb)08/09/2025 3:15 PM OHXLttnpc628.2 cm (5' 7 ) 05/08/2025 9:33 AM EDTBody Mass Index32.11005/08/2025 9:33 AM EDT Plan of Treatment Not on file Insurance Care Teams Team MemberRelationshipSpecialtyStart DateEnd Date Jay Sadler MD [address] [place] [address] PCP - GeneralFamily Medicine04/19/25
--- OUTSIDE RECORDS SUMMARY | 2025-08-10 12:27 | XMS_ITS | Encounter Summary ---
Author Organization [facility] Address [address] [place] [address] Care Team Providers Care Animal Treatment Investigator Name Role Phone Jay Sadler MD Primary Care Provider [phone] Encounter Details DateTypeDepartmentCare Team (Latest Contact Info)Ahgucssqtvt24/04/2024Clinisync Result Encounter [facility] External Department Unsolicited Robbin Stinson, DO [address] [facility] [place] [address] Social History Tobacco UseTypesPacks/DayYears UsedDateSmoking Tobacco: [...] EDT Narrative 03/01/2024 12:45 PM EDT [facility] ?[address] ? [place] [address] ? Ultrasound Report ? Signed ? Patient: ROSS,AALIYAH J ? MR#: [id number] ?? : 1995 ?Acct:[id number] ?? Age/Sex: 28 / F ?ADM Date: 03/01/24 ?? Loc: [facility] ? Attending Dr: Robbin Stinson D.O. ? Ordering Physician: Robbin Stinson D.O. ?? Date of Service: 03/01/24 ?? Procedure(s): US OB growth ?? Accession Number(s): [id number] ? cc: Robbin Stinson D.O.; Jay Sadler M.D. ? [facility] ? [address] [facility] ? [place] [address] ? Patient Name: ?? AALIYAH CARVALHO ? MRN: [facility]:[id number] ? date: 1995 ?Sex: F ?? Assigned Patient Location: [facility] ?? Current Patient Location: [facility] ?? Accession/Order Number: [id number] ?? Exam Date: 03/01/2024 ??09:51 ?Report Date: [...] was notified of these findings by the remedial masseur at time of ?? imaging. ? Electronically authenticated by: SIDNEY ??FRANCA ?? Date: 03/01/2024 ??12:43 ? Dictated By: ?Sidney Delcid M.D. ? Signed By: ?03/01/24 1245 ? DD/ 1243 ? TD/TT: ? Documentation Coordinator: Procedure Note Radiology, Radiologist, MD - 03/01/2024 [place] [address] Ultrasound Report Signed Patient: AALIYAH CARVALHO JMR#: [id number] : 1995Acct:[id number] Age/Sex: 28 FADM Date: 03/01/24 Loc: [facility] Attending Dr: Robbin Stinson D.O. Ordering Physician: Robbin Stinson D.O. Date of Service: 03/01/24 Procedure(s): US OB growth Accession Number(s): [id number] cc: Robbin Stinson D.O.; Jay Sadler M.D. The [address] [address] Patient Name: AALIYAH CARVALHO MRN: [id number] date: 1995 Sex: F Assigned Patient Location: [facility] Current Patient Location: [facility] Accession/Order Number: [id number] Exam Date: 03/01/2024 09:51 Report Date: 03/01/2024 [...] was notified of these findings by the remedial masseur at time of imaging. Electronically authenticated by: SIDNEY DELCID Date: 03/01/2024 12:43 Dictated By: Sidney Delcid M.D. Signed By:03/01/24 1245 DD/ 1243 TD/TT: Documentation Coordinator: Authorizing ProviderResult TypeResult StatusCorey Shantell DOCLINISYNC IMAGINGFinal Result documented in this encounter Visit Diagnoses Not on filedocumented in this encounter Care Teams Team MemberRelationshipSpecialtyStart DateEnd Date Jay Sadler MD [address] [place] [address] PCP - GeneralFamily Medicine04/19/25documented as of this encounter
--- OUTSIDE RECORDS SUMMARY | 2025-08-10 12:27 | XMS_ITS | Encounter Summary ---
Author Organization [facility] Address [address] [place] [address] Care Team Providers Care Child Psychologist Name Role Phone Jay Sadler MD Primary Care Provider [phone] Encounter Details DateTypeDepartmentCare Team (Latest Contact Info)Trrdkylajai72/26/2024Clinisync Result Encounter [facility] External Department Unsolicited Robbin Stinson, DO [address] [facility] [address] [place] [place], [place] [address] Social History Tobacco UseTypesPacks/DayYears UsedDateSmoking Tobacco: NeverSmokeless [...] Procedures Procedure NamePriorityDate/TimeAssociated DiagnosisCommentsUS OB BPP W NON-GRKPFF0003/23/2024 8:58 AM EDT documented in this encounter Results * US OB BPP W NON-STRESS (03/23/2024 8:58 AM EDT)Anatomical Region LateralityModalityOtherSpecimen (Source)Anatomical Location / Laterality Collection Method / VolumeCollection TimeReceived Time03/23/2024 8:58 AM EDT Narrative 03/23/2024 9:01 AM EDT The [facility] ?[address] ? [place] [address] ? Ultrasound Report ? Signed ? Patient: ROSS,AALIYAH J ? MR#: [id number] ?? : 1995 ?Acct:[id number] ?? Age/Sex: 28 / F ?ADM Date: 06/26/24 ?? Loc: US ? Attending Dr: Robbin Stinson D.O. ? Ordering Physician: Robbin Stinson D.O. ?? Date of Service: 03/23/24 ?? Procedure(s): US OB BPP w non-stress ?? Accession Number(s): [id number] ? cc: Robbin Stinson D.O.; Jay Sadler M.D. ? [facility] ? [address] ? [place] [address] ? Patient Name: ?? AALIYAH CARVALOH ? MRN: [facility]:[id number] ? date: 1995 ?Sex: F ?? Assigned Patient Location: [facility] ?? Current Patient Location: ? Accession/Order Number: [id number] ?? Exam Date: 03/23/2024 ??07:57 ?Report Date: [...] 0901 ? DD/ 0858 ? TD/TT: ? Referral Nurse: Procedure Note Radiology, Radiologist, MD - 03/23/[address] [address] Ultrasound Report Signed Patient: AALIYAH CARVALHO JMR#: [id number] : 1995Acct:[id number] Age/Sex: 28 / FADM Date: 03/23/24 Loc: US Attending Dr: Robbin Stinson D.O. Ordering Physician: Robbin Stinson D.O. Date of Service: 03/23/24 Procedure(s): US OB BPP w non-stress Accession Number(s): [id number] cc: Robbin Stinson D.O.; Jay Sadler M.D. [place] [address] Patient Name: AALIYAH CARVALHO MRN: [id number] date: 1995 Sex: F Assigned Patient Location: [facility] Current Patient Location: Accession/Order Number: [id number] Exam Date: 03/23/2024 07:57 Report Date: 03/23/2024 [...] Womack M.D. Signed By:03/23/24900 DD/ 7 TD/TT: Referral Nurse: Authorizing ProviderResult TypeResult StatusCoremagnolia Stinson DOCLINISYNC IMAGINGFinal Result documented in this encounter Visit Diagnoses Not on filedocumented in this encounter Care Teams Team MemberRelationshipSpecialtyStart DateEnd Date Jay Sadler MD [address] [place] [address] PCP - GeneralFamily Medicine04/19/25documented as of this encounter
--- OUTSIDE RECORDS SUMMARY | 2025-08-10 12:27 | XMS_ITS | Encounter Summary ---
Author Organization [facility] Address [address] [place] [address] Care Team Providers Care Pile Driver Operator Name Role Phone Jay Sadler MD Primary Care Provider [phone] Encounter Details DateTypeDepartmentCare Team (Latest Contact Info)Lkvdcenpyjm37/19/2024Clinisync Result Encounter [facility] External Department Unsolicited Robbin Stinson, DO [address] [facility] [address] [place] [place], [place] [id number] Social History Tobacco UseTypesPacks/DayYears UsedDateSmoking Tobacco: NeverSmokeless [...] Procedures Procedure NamePriorityDate/TimeAssociated DiagnosisCommentsUS OB BPP W NON-OGMQWV9203/16/2024 9:08 AM EDT documented in this encounter Results * US OB BPP W NON-STRESS (03/16/2024 9:08 AM EDT)Anatomical Region LateralityModalityOtherSpecimen (Source)Anatomical Location / Laterality Collection Method / VolumeCollection TimeReceived Time03/16/2024 9:08 AM EDT Narrative 03/16/2024 9:11 AM EDT [facility] ?[address] ? [place] [address] ? Ultrasound Report ? Signed ? Patient: ROSS,AALIYAH J ? MR#: [id number] ?? : 1995 ?Acct:[id number] ?? Age/Sex: 28 / F ?ADM Date: 06/19/24 ?? Loc: US ? Attending Dr: Robbin Stinson D.O. ? Ordering Physician: Robbin Stinson D.O. ?? Date of Service: 03/16/24 ?? Procedure(s): US OB BPP w non-stress ?? Accession Number(s): [id number] ? cc: Robbin Stinson D.O.; Jay Sadler M.D. ? [facility] ? [address] ? [place] [address] ? Patient Name: ?? AALIYAH CARVALHO ? MRN: [facility]:[id number] ? date: 1995 ?Sex: F ?? Assigned Patient Location: FBC ?? Current Patient Location: ? Accession/Order Number: [id number] ?? Exam Date: 03/16/2024 ??07:51 ?Report Date: [...] 0911 ? DD/ 0908 ? TD/TT: ? Manager Human Resources: Procedure Note Radiology, Radiologist, MD - 03/16/[address] [address] Ultrasound Report Signed Patient: AALIYAH CARVALHO JMR#: [id number] : 1995Acct:[id number] Age/Sex: 28 / FADM Date: 03/16/24 Loc: US Attending Dr: Robbin Stinson D.O. Ordering Physician: Robbin Stinson D.O. Date of Service: 03/16/24 Procedure(s): US OB BPP w non-stress Accession Number(s): [id number] cc: Robbin Stinson D.O.; Jay Sadler M.D. [address] [id number] Patient Name: AALIYAH CARVALHO MRN: [id number] date: 1995 Sex: F Assigned [facility] Current Patient Location: Accession/Order Number: [id number] Exam Date: 03/16/2024 07:51 Report Date: 03/16/2024 [...] Delcid M.D. Signed By:03/16/24910 DD/ 7 TD/TT: Manager Human Resources: Authorizing ProviderResult TypeResult StatusCorey Shantell DOCLINISYNC IMAGINGFinal Result documented in this encounter Visit Diagnoses Not on filedocumented in this encounter Care Teams Team MemberRelationshipSpecialtyStart DateEnd Date Jay Sadler MD [address] [place] [phone] PCP - GeneralFamily Medicine04/19/25documented as of this encounter
--- OUTSIDE RECORDS SUMMARY | 2025-08-10 12:27 | XMS_ITS | Encounter Summary ---
Author Organization [facility] Address [address] [place] [address] Care Team Providers Care Insurance Underwriting Assistant Name Role Phone Jay Sadler MD Primary Care Provider [phone] Encounter Details DateTypeDepartmentCare Team (Latest Contact Info)Dywyskmiblq46/03/2024Clinisync Result Encounter [facility] External Department Unsolicited Robbin Stinson, DO [address] [facility] [address] [place], [place] [address] Social History Tobacco UseTypesPacks/DayYears UsedDateSmoking Tobacco: NeverSmokeless [...] Procedure NamePriorityDate/TimeAssociated DiagnosisCommentsTBH URINE T PROTEIN CREAT ANTDZFvzfwmu10/03/2024 12:20 PM EDT TBH KPJOJQYXHZSbdrkja13/03/2024 10:29 AM EDT SRMCOH PROTHROMBIN TIME INR W/O QJZADedbhqv16/03/2024 10:29 AM EDT MHPT JWZQTQQOPBXwdnvxr70/03/2024 10:29 AM EDT C[facility] XESDvijtbk22/03/2024 10:29 AM EDT [facility] YUGOLmwybvx77/03/2024 10:29 AM EDT [facility] FYHZzvptxm58/03/2024 10:29 AM EDT ALL URIC MHEQYwioamj34/03/2024 10:29 AM EDT ALL CBC WITH AUTO IGLJMcpeovd53/03/2024 10:29 AM EDT ALL JAQUjgcrzs48/03/2024 10:29 AM EDT [facility] DRUG SCREEN RAPID (URINE)Qdebibi9303/30/2024 10:20 AM EDT OB BHXLSR1603/30/2024 9:17 AM EDT documented in this encounter Results * (ABNORMAL) TBH URINE T PROTEIN CREAT RATIO (03/30/2024 12:20 PM EDT)Component ValueRef RangeTest MethodAnalysis TimePerformed AtPathologist SignatureTOTAL PROTEIN URINE GJJGNU86.3(H)<=11.9 mg/dLTBHCREATININE URINE LWLQSR679.0720.00 - 300.00 mg/dLTBHPROTEIN CREATININE RATIO URINE0.20TBHSpecimen (Source) Anatomical Location / LateralityCollection Method / VolumeCollection Time Received Time03/30/2024 12:20 PM EDT03/30/2024 3:35 PM EDT Narrative [facility] - 03/30/2024 3:57 PM EDT Authorizing ProviderResult TypeResult StatusCorey Shantell DOCLINISYNCFinal Result Performing OrganizationAddressCity/State/ZIP CodePhone Number [facility] TB * (ABNORMAL) MHPT FIBRINOGEN (03/30/2024 10:29 AM EDT)ComponentValueRef Range Test MethodAnalysis TimePerformed AtPathologist QggitbynnBWHRCYENCS257(H)200 - 400 mg/dLTBHSpecimen (Source)Anatomical Location / LateralityCollection Method / VolumeCollection TimeReceived Time03/30/2024 10:29 AM EDT03/30/2024 10:33 AM EDT Narrative CLIN[facility]YFL - 03/30/2024 11:36 AM EDT Authorizing ProviderResult TypeResult StatusCorey Shantell DOCLINISYNCFinal Result Performing OrganizationAddressCity/State/ZIP CodePhone Number [facility] * CCF APTT (03/30/2024 10:29 AM EDT)ComponentValueRef RangeTest MethodAnalysis TimePerformed AtPathologist SignaturePARTIAL THROMBOPLASTIN TIME25.222.3 - 36.2 secTBHSpecimen (Source)Anatomical Location / LateralityCollection Method / VolumeCollection TimeReceived Time03/30/2024 10:29 AM EDT03/30/2024 10:33 AM EDT Narrative CLIN[facility]FL - 03/30/2024 11:36 AM EDT Authorizing ProviderResult TypeResult StatusCorey Shantell DOCLINISYNCFinal Result Performing OrganizationAddressCity/State/ZIP CodePhone Number [facility] * SRMCOH PROTHROMBIN TIME INR W/O COUM (03/30/2024 10:29 AM EDT)ComponentValue Ref RangeTest MethodAnalysis TimePerformed AtPathologist SignaturePROTHROMBIN TIME9.99.0 - 11.6 secTTB INR0.93TBHComment: DESIRED INR: 2.0-3.0 CONDITIONS NOT LISTED BELOW 2.5-3.5 FOR PROSTHETIC HEART VALVE REPLACEMENT 2.5-3.5 RECURRENT THROMBOSIS Specimen (Source)Anatomical Location / LateralityCollection Method / Volume Collection TimeReceived Time03/30/2024 10:29 AM EDT03/30/2024 10:33 AM EDT Narrative CLIN[facility]YFL - 03/30/2024 11:36 AM EDT Authorizing ProviderResult TypeResult StatusCorey Shantell DOCLINISYNCFinal Result Performing OrganizationAddressCity/State/ZIP CodePhone Number [facility] * [facility] ALT (03/30/2024 10:29 AM EDT)ComponentValueRef RangeTest MethodAnalysis TimePerformed AtPathologist SignatureALANINE PNDDFMSNHXDCQIJC5269 - 59 U/LTBH Specimen (Source)Anatomical Location / LateralityCollection Method / Volume Collection TimeReceived Time03/30/2024 10:29 AM EDT03/30/2024 10:33 AM EDT Narrative CLINISYFL - 03/30/2024 11:05 AM EDT Authorizing ProviderResult TypeResult StatusCorey Shantell DOCLINISYNCFinal Result Performing OrganizationAddressCity/State/ZIP CodePhone Number [facility] * [facility] AST (03/30/2024 10:29 AM EDT)ComponentValueRef RangeTest MethodAnalysis TimePerformed AtPathologist SignatureASPARTATE AMINO WJCEJFQZNER6759 - 37 U/L TBHSpecimen (Source)Anatomical Location / LateralityCollection Method / Volume Collection TimeReceived Time03/30/2024 10:29 AM EDT03/30/2024 10:33 AM EDT Narrative CLINISYFL - 03/30/2024 11:05 AM EDT Authorizing ProviderResult TypeResult StatusCorey Shantell DOCLINISYNCFinal Result Performing OrganizationAddressCity/State/ZIP CodePhone Number [facility] * ALL URIC ACID (03/30/2024 10:29 AM EDT)ComponentValueRef RangeTest Method Analysis TimePerformed AtPathologist SignatureURIC ACID3.82.6 - 6.0 mg/dLTBH Specimen (Source)Anatomical Location / LateralityCollection Method / Volume Collection TimeReceived Time03/30/2024 10:29 AM EDT03/30/2024 10:33 AM EDT Narrative CLINISYFL - 03/30/2024 11:05 AM EDT Authorizing ProviderResult TypeResult StatusCorey Shantell DOCLINISYNCFinal Result Performing OrganizationAddressCity/State/ZIP CodePhone Number [facility] TB * (ABNORMAL) TBH CREATININE (03/30/2024 10:29 AM EDT)ComponentValueRef RangeTest MethodAnalysis TimePerformed AtPathologist SignatureCREATININE0.51(L)0.55 - 1.02 mg/dLTBHTBH EGFR-AF EMIRATI>60>=60TBHTBH EGFR-NON AF EMIRATI>60>=60TBH Specimen (Source)Anatomical Location / LateralityCollection Method / Volume Collection TimeReceived Time03/30/2024 10:29 AM EDT03/30/2024 10:33 AM EDT Narrative CLINISYNC - 03/30/2024 11:05 AM EDT Authorizing ProviderResult TypeResult StatusCorey Shantell DOCLINISYNCFinal Result Performing OrganizationAddressCity/State/ZIP CodePhone Number [facility] * (ABNORMAL) ALL BUN (03/30/2024 10:29 AM EDT)ComponentValueRef RangeTest Method Analysis TimePerformed AtPathologist SignatureBLOOD UREA NITROGEN6.0(L)7.0 - 18.0 mg/dLTBHSpecimen (Source)Anatomical Location / LateralityCollection Method / VolumeCollection TimeReceived Time03/30/2024 10:29 AM EDT03/30/2024 10:33 AM EDT Narrative CLINISYFL - 03/30/2024 11:05 AM EDT Authorizing ProviderResult TypeResult StatusCorey Shantell DOCLINISYNCFinal Result Performing OrganizationAddressCity/State/ZIP CodePhone Number [facility] * (ABNORMAL) ALL CBC WITH AUTO DIFF (03/30/2024 10:29 AM EDT)ComponentValueRef RangeTest MethodAnalysis TimePerformed AtPathologist SignatureTBH WBC8.74.0 - 11.0 10 3/uLTBHTBH RBC3.99(L)4.20 - 5.40 10 6/uLTBHTBH HGB13.212.0 - 16.0 g/dL TBHTBH HCT38.636.0 - 48.0 %TBHTBH MCV96.781.0 - 99.0 fLTBHTBH MCH33.126.7 - 34.0 pgTBHTBH MCHC34.229.9 - 35.2 g/dLTBHTBH RDW12.711.0 - 15.0 %TBHTBH XZB060 150 - 450 10 3/uLTBHTBH MPV11.09.5 - [...] Shantell DOCLINISYNCFinal Result Performing OrganizationAddressCity/State/ZIP CodePhone Number [facility] * US OB GROWTH (03/30/2024 9:17 AM EDT)Anatomical RegionLateralityModalityOther Specimen (Source)Anatomical Location / LateralityCollection Method / Volume Collection TimeReceived Time03/30/2024 9:17 AM EDT Narrative 03/30/2024 9:20 AM EDT [facility] ?[address] ? [place] [address] ? Ultrasound Report ? Signed ? Patient: AALIYAH CARVALHO ? MR#: [id number] ?? : 1995 ?Acct:[id number] ?? Age/Sex: 28 / F ?ADM Date: 03/30/24 ?? Loc: FBC ??250-1 ? Attending Dr: Robbin Stinson D.O. ? Ordering Physician: Robbin Stinson D.O. ?? Date of Service: 03/30/24 ?? Procedure(s): US OB growth ?? Accession Number(s): [id number] ? cc: Robbin Stinson D.O.; Jay Sadler M.D. ? [facility] ? [address] ? [place] [address] ? Patient Name: ?? AALIYAH CARVALHO ? MRN: [facility]:[id number] ? date: 1995 ?Sex: F ?? Assigned Patient Location: FBC ?? Current Patient Location: [facility] ?? Accession/Order Number: [id number] ?? Exam Date: 03/30/2024 ??08:03 ?Report Date: [...] 0920 ? DD/ 09 ? TD/TT: ? Perianesthesia Nurse: Procedure Note Radiology, Radiologist, MD - 03/30/2024 [place] [address] Ultrasound Report Signed Patient: AALIYAH CARVALHO R#: [id number] : 1995Acct:[id number] Age/Sex: 28 / FADM Date: 03/30/24 Loc: [facility] 250-[address]: Robbin Stinson D.O. Ordering Physician: Robbin Stinson D.O. Date of Service: 03/30/24 Procedure(s): US OB growth Accession Number(s): [id number] cc: Robbin Stinson D.O.; Jay Sadler M.D. [address] [address] Patient Name: AALIYAH CARVALHO MRN: [facility]:[id number] date: 1995 Sex: F Assigned Patient Location: [facility] Current Patient Location: [facility] Accession/Order Number: [id number] Exam Date: 03/30/2024 08:03 Report Date: 03/30/2024 [...] Delcid M.D. Signed By:03/30/24919 DD/ 0917 TD/TT: Perianesthesia Nurse: Authorizing ProviderResult TypeResult StatusCorey Shantell DOCLINISYNC IMAGINGFinal Result documented in this encounter Visit Diagnoses Not on filedocumented in this encounter Care Teams Team MemberRelationshipSpecialtyStart DateEnd Date Jay Sadler MD [address] [place] [address] PCP - GeneralFamily Medicine04/19/25documented as of this encounter
--- OUTSIDE RECORDS SUMMARY | 2025-08-10 12:27 | XMS_ITS | Patient Health Record ---
Author Organization [facility] Address [address] [place] [address] Care Team Providers Care Pharm Spec Name Role Phone Jay Sadler Primary Care Provider Sidney Rich [facility] [phone] Allergies No Known Allergies Results Component Value Reference Range Notes SCC- HAND 3 VIEW RIGHT [address] Reviewed date:11/03/2024 04:38:50 PM Interpretation: Performing Lab: [...] in the past year?Declined to specify (0 point)Xflaut7LlgfakxxbkhgkbKwivmzwc Vital Signs Height 5ft7in in 10/24/2024 Mhauvx845 lbs5BMI32.57010/24/2024 Encounters Encounter Location Date Provider Diagnosis [facility] [address] [place] [address] [place] [address] 10/24/2024 Sidney Plummer Pain in right hand [...] Start Date Coverage End Date [address] [place] [address] [id number] RACHEAL CARVALHO Self - patient is the insured Medical (General) History Medical History History ICD Code Kidney trouble High Blood PressureAnxietySurgical History Surgery Date(Month/Year) Colonoscopy 2017 Fatty tumor 2011 Tonsillectomy/Adenoidectomy 2004
--- OUTSIDE RECORDS SUMMARY | 2025-08-10 12:28 | XMS_ITS | Clinical Summary ---
Author Organization [employer] s tem Address [id number] [address] [place] [address] Care Team Providers Care Assistant Merchandise Manager Name Role Phone Jay Sadler MD Primary Care Provider [phone] Allergies Active AllergyReactionsCriticalityNoted HvudXajyuqsaKmlzgnrriAdedmps71/13/2023 Medications MedicationSigDispense QuantityRefillsLast FilledStart DateEnd DateStatus NIFEdipine XL (PROCARDIA XL) 90 mg 24 hr tablet Take 1 tablet (90 mg total) by mouth in the morning. 90 tablet 5Active Social History Tobacco UseTypesPacks/DayYears UsedDateSmoking Tobacco: Never Assessed CommentsUnknownSex and Gender InformationValueDate RecordedSex Assigned at Not on fileLegal IitJbusbu90/17/2024 10:10 AM EDTGender IdentityNot on file Sexual OrientationNot on file Last Filed Vital Signs Vital SignReadingTime TakenCommentsBlood Aqjggeub048/78010/20/2024 3:33 PM EST Epsrt249110/20/2024 3:33 PM ESTTemperature--Respiratory Rate--Oxygen Saturation-- Inhaled Oxygen Concentration--Wxrmhr63 kg (211 lb 9.6 oz)10/20/2024 3:31 PM EST Tyyrto672.2 cm (5' 7 )10/20/2024 3:31 PM ESTBody Mass Index33.14010/20/2024 3:31 PM EST Plan of Treatment DateTypeDepartmentCare Team (Latest Contact Info)Waaelinrrql64/22/2026 4:00 PM ESTOffice Visit [facility] [address] [place] [address] Sam Bain MD [address] [place] [address] Health MaintenanceDue DateLast DoneCommentsDepression Phtcdcarc36/15/2008Tobacco Jfifmnfoq83/15/2008dult BMI Follow Up Plan2014Influenza Apboiif6405/29/2025 08/19/2019Adult BMI Iptlkegqc05/23/30314210/20/2024Pap Smear/04/2024 DTaP,Tdap and Td Vaccines (2 - Tdap) Medical Devices Not on file Insurance Care Teams Team MemberRelationshipSpecialtyStart DateEnd Date Jay Sadler MD [address] [facility], [place] [address] [facility] Sp[facility]bfchz55/16/24
--- OUTSIDE RECORDS SUMMARY | 2025-08-10 12:28 | XMS_ITS | Encounter Summary ---
Author Organization [facility] Address [address] [place] [address] Care Team Providers Care Logistics Assistant Name Role Phone Jay Sadler MD Primary Care Provider [phone] Encounter Details DateTypeDepartmentCare Team (Latest Contact Info)Xbaxxeuudml71/23/2023linisync Result Encounter [facility] External Department Unsolicited Robbin Stinson, DO [address] [facility] [address] [place], [place] [phone] Social History Tobacco UseTypesPacks/DayYears UsedDateSmoking Tobacco: NeverSmokeless [...] or suspected to have Co ronavirus/COVID-19?No / Htqznj4709/02/2023 9:53 AM ESTdocumented as of this encounter Plan of Treatment Not on file documented as of this encounter Procedures Procedure NamePriorityDate/TimeAssociated DiagnosisCommentsUS OB TRANSVAGINAL 09/19/2023 12:15 AM EST documented in this encounter Results * US OB TRANSVAGINAL (09/19/2023 12:15 AM EST)Anatomical RegionLaterality ModalityOtherSpecimen (Source)Anatomical Location / LateralityCollection Method / VolumeCollection TimeReceived Time09/19/2023 12:15 AM EST Narrative 09/19/2023 12:18 AM EST [facility] ?[address] ? [place] [address] ? Ultrasound Report ? Signed ? Patient: DEVENAALIYAH J ? MR#: [id number] ?? : 1995 ?Acct:[id number] ?? Age/Sex: 28 / F ?ADM Date: 09/18/23 ?? Loc: US ? Attending Dr: Robbin Stinson D.O. ? Ordering Physician: Robbin Stinson D.O. ?? Date of Service: 09/18/23 ?? Procedure(s): US OB transvaginal ?? Accession Number(s): [id number] ? cc: Robbin Stinson D.O.; Jay Sadler M.D. ? [facility] ? [address] [place] [address] ? [place] [address] ? Patient Name: ?? AALIYAH CARVALHO ? MRN: [facility]:[id number] ? date: 1995 ?Sex: F ?? Assigned Patient Location: ?? Current Patient Location: ? Accession/Order Number: [id number] ?? Exam Date: 09/18/2023 ??08:33 ?Report Date: [...] 0018 ? DD/ 0015 ? TD/TT: ? Glass Sander Belt: Procedure Note Radiology, Radiologist, - 09/19/2023 [place] [address] Ultrasound Report Signed Patient: AALIYAH CARVALHO JMR#: [id number] : 1995Acct:[id number] Age/Sex: 28 / FADM Date: 09/18/23 Loc: US Attending Dr: Robbin Stinson D.O. Ordering Physician: Robbin Stinson D.O. Date of Service: 09/18/23 Procedure(s): US OB transvaginal Accession Number(s): [id number] cc: Robbin Stinson D.O.; Jay Sadler M.D. The [place] [id number] Patient Name: AALIYAH CARVALHO MRN: [facility]:[id number] date: 1995 Sex: F Assigned Patient Location: US Current Patient Location: Accession/Order Number: [id number] Exam Date: 09/18/2023 08:33 Report Date: 09/19/2023 [...] Sidney Delcid M.D. Signed By:09/19/238 DD/ TD/TT: Glass Sander Belt: Authorizing ProviderResult TypeResult StatusCorey Shantell DOCLINISYNC IMAGINGFinal Result documented in this encounter Visit Diagnoses Not on filedocumented in this encounter Care Teams Team MemberRelationshipSpecialtyStart DateEnd Date Jay Sadler MD [address] [place] [address] PCP - GeneralFamily Medicine04/19/25documented as of this encounter
--- OUTSIDE RECORDS SUMMARY | 2025-08-10 12:28 | XMS_ITS | CCD ---
Author Organization [facility] CliniSyde Care Team Providers Care Intelligence Specialist Name Role Phone REQUEST, DR NONE LISTED [...] (1 source)RaspberryPropensity to adverse reactionstingles, and itchesNorth RecruitTalk Other (17 sources)raspberry allergenic extract; Translations: [RASPBERRY]Drug Allergy 84-72-7571FomrxuaOWOMBaptist Memorial Hospital Work Phone: (4 sources)raspberry extractDrug Qywoklp59-46-1433ZujkazkKuxIfztvk Health System (1 source)No Known Medication Allergies; Translations: [No Known Medication Allergies]Propensity to adverse reactions (disorder)[facility] Repository Medications Current Medications MedicationDrug Class(es)DatesSig (Normalized)Sig (Original)fluticasone propionate 0.05 mg/actuat metered dose nasal spray (1 source)CorticosteroidStart: 04-24-2023 End: 77-97-6401vzwn 1 spray(s) nasal route in the morningfluticasone (Flonase) 50 MCG/ACT nasal spray Administer 1 spray into each nostril in the morning. 05/17/2024 Discontinuedlabetalol hydrochloride 200 mg oral tablet (8 sources)beta-Adrenergic BlockerStart: 04-01-2024 End: 83-45-9617eesx 1 tablet by mouth oncelabetalol (Normodyne) 200 MG tablet Take 1 tablet by mouth 1 (one) time 04/01/2024 05/08/2025 Discontinued (Therapy completed)loratadine 10 mg oral capsule (15 sources)take 1 capsule by mouth once dailyLoratadine (Claritin) 10 MG capsule Take 10 mg by mouth Daily ActivemethylPREDNISolone 4 mg oral tablet (1 source)CorticosteroidStart: 11-27-2473wwzrorMUGJUBMocatz 4 MG as directed Orally for daily dose take half with breakfast, half with dinner for 6 days May, ActiveNIFEdipine 90 mg osmotic 24 hr extended release oral tablet (5 sources)Dihydropyridine Calcium Channel BlockerStart: 39-41-2219zdgd 1 tablet by mouth every twenty-four hours in the morningNIFEdipine XL (PROCARDIA XL) 90 mg 24 hr tablet Take 1 tablet (90 mg total) by mouth in the morning. 90 tablet 3 10/20/2024 ActiveStart: 07-14-2024 End: 96-45-1904dokl 1 tablet by mouth every twenty-four hours in the morning NIFEdipine XL (PROCARDIA XL) 60 mg 24 hr tablet Take 1 tablet (60 mg total) by mouth in the morning. 90 tablet 3 07/14/2024 10/20/2024 DiscontinuedPrenatal MV-Min-Fe Fum-FA-DHA ( 1 PO) (8 sources) End: 91-99-3843Gwbkxnkt MV-Min-Fe Fum-FA-DHA ( 1 PO) Take by mouth 05/08/2025 Discontinued (Therapy completed) MV-Min-Fe Fum-FA-DHA ( 1 PO) Take by mouth Active Problems Active Problems Problem ClassificationProblemDateDocumented DateEpisodic/ChronicAbdominal pain (3 sources)Upper abdominal pain; Translations: [Upper abdominal pain, unspecified]Onset: 64-41-8849PovrdrncQjzrzkwm foot deformities (2 sources)Acquired valgus deformity of left ankle; Translations: [Valgus deformity, not elsewhere classified,left ankle]00-87-4368VciqkrkkZjcpafg disorders (1 source)Dchriik38-45-1699RzkirrlWrqxsscbygkzd (17 sources)Endometriosis (clinical); Translations: [Endometriosis, unspecified] Onset: 863889-24-6519KxfskjxShahavtwjb disorders (18 sources)Gastroesophageal reflux disease without esophagitis; Translations: [Gastro-esophageal reflux disease without esophagitis]Onset: 09-09-2023 34-86-2151GqismzjJmxbhxxkm hypertension (17 sources)Essential hypertension; Translations: [Essential (primary) hypertension]Onset: 559682-47-0144ZiojqeeVpllxmrnsokhlwnw hemorrhage (3 sources)Melena; Translations: [Hematochezia]Onset: 05-78-8638Ysytotut Genitourinary congenital anomalies (20 sources)Polycystic kidney, unspecified; 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]Onset: 153126-86-4690DwqkakbMywimpmw; including migraine (1 source)Ryaeprif08-38-2478DlmontfHyjladtp; including migraine (4 sources)Headache; including migraine; Translations: [HEADACHE UNSPECIFIED] Onset: 86-17-2861Oybasodpcuapo and screening for infectious disease (1 source)Encounter for screening for human papillomavirus (HPV); Translations: [ENC SCREENING HUMAN PAPILLOMAVIRUS]Onset: 33-67-1755MzknvizwLromq acquired deformities (2 sources)Equinus contracture of the ankle; Translations: [Contracture, left ankle]66-23-1028MezgfcnHjhbh connective tissue disease (2 sources)Tendinitis of left posterior tibial tendon; Translations: [Posterior tibial tendinitis, left leg]80-93-7693JuixjwlhRcrgz connective tissue disease (2 sources)Tendinitis of right posterior tibial tendon; Translations: [Posterior tibial tendinitis, right leg]94-95-5389OvfycxrjZptir female genital disorders (16 sources)Pain in female genitalia on intercourse; Translations: [Unspecified dyspareunia]Onset: 232670-04-4257ImzhdtrTkxto gastrointestinal disorders (1 source)Irritable bowel syndrome characterized by constipation; Translations: [Irritable bowel syndrome with constipation]ChronicOther gastrointestinal disorders (1 source)Constipation alternates with diarrhea; Translations: [Other specified symptoms and signs involving the digestive system and abdomen]EpisodicOther gastrointestinal disorders (1 source)Constipation; Translations: [Constipation, unspecified]EpisodicOther nervous system disorders (2 sources)Difficulty walking; Translations: [Difficulty in walking, not elsewhere classified]68-85-2050KqnnqxjGrxoj non-traumatic joint disorders (2 sources)Instability of joint of left ankle; Translations: [Other instability, left ankle]07-73-7679HblotrckXtrlj non-traumatic joint disorders (2 sources)Sinus tarsi syndrome of left ankle; Translations: [Pain in left ankle and joints of left foot]13-40-5665ZqhodkrwZokzm nutritional; endocrine; and metabolic disorders (16 sources)Obesity; Translations: [Obesity, unspecified]Onset: 09-09-2023 13-80-2085VtlxhiwLjojf nutritional; endocrine; and metabolic disorders (1 source)Body mass index 30+ - mcimchq81-05-0357WhpubirExxxt nutritional; endocrine; and metabolic disorders (1 source)Obesity caused by energy -17-5730WgkvlyxMtiko nutritional; endocrine; and metabolic disorders (1 source)Unintentional weight loss; Translations: [Abnormal weight loss] EpisodicOther screening for suspected conditions (not mental disorders or infectious disease) (4 sources)Encounter for screening for malignant neoplasm of cervix; Translations: [ENC SCREENING MALIG NEOPLASM CERV]Onset: 04-87-2749TjkvprcuJyixk upper respiratory disease (16 sources)Chronic rhinitis; Translations: [Chronic rhinitis]Onset: 09-14-2023 73-74-3132QpmpcyjGlmqqzlkj by nonmedicinal substances (1 source)Toxic effect of venom of bees, accidental (unintentional), initial encounterEpisodicResidual codes; unclassified (1 source)Sleep ofctb30-88-6658Lleaidb Past or Other Problems Problem ClassificationProblemDateDocumented DateEpisodic/ChronicAcute bronchitis (16 sources)Acute bronchiolitis; Translations: [Acute bronchiolitis, unspecified]Onset: 09-09-2023 Resolved: 999586-67-5220RzfpatssTtzfb diseases of kidney and ureters (16 sources)Kidney disease; Translations: [Disorder of kidney and ureter, unspecified]Onset: 763630-81-0455LbjyetatSljug and delivery including normal (1 source) care status; Translations: [Encounter for routine follow-up]43-08-0487KtmemjgnQjbkhq media and related conditions (16 sources)Dysfunction of bilateral eustachian tubes; Translations: [Unspecified Eustachian tube disorder, bilateral]Onset: EpisodicResidual codes; unclassified (16 sources)Bilateral lower limb edema; Translations: [Localized edema]Onset: 330699-33-4130Jfqwbyix Results Test NameValueInterpretationReference RangeFacilityAmbulatory Visit Summaryon 53-71-8476Jmprroylbn Visit SummaryAmbulatory Visit Summary AALIYAH CARVALHO :1995 [...] signed up for this yet, please contact [employer] Information TipTap at [phone] to get signed up today. Language Information Language assistance services are available as needed. [facility] Panel Informationon 75-34-0885Dfozqpksd Study observation (narrative)[facility] (narrative)[facility] Ankle - left 2 Viewson 05-08-2025 Imaging Result: AP, lateral views are weight-bearing. Decreased calcaneal inclination and increased talar declination. Talus is well seated within the ankle mortise. Os trigonum noted over the posterior talar process. No fractures or dislocations noted.[facility] Ankle - right 2 Viewson 47-88-3026BGNO HealthcareImaging Result: Entered in error, wrong [facility] 2 Views on 04-73-8922Azkbprb Result: AP, medial oblique views are weight-bearing. Increased IM 1-2 angle. Slight joint space narrowing of the 1st MTP. No cystic changes noted. Approximately 30 percent talar head uncoverage. Os trigonum noted over the posterior subtalar joint region.[facility] Foot - right 2 Viewson 88-10-9991PZIM HealthcareImaging Result: Entered in error, wrong [facility] SpringsBASIC METABOLIC PANLon 03-62-6924Gikzy gap [Moles/Vol]8 mmol/LNormal5-15[facility] Comment on above:Performed By: #### CBC, 15907-6, 81799-9, 2731-8, 98668-5, 39263-7, 58980-1, BMP, 5196-1, 83908-4, 5193-8, 6969-0, UPCR, SIFE, 71645-9, 6968-2, 2777-1 #### [facility] ([id number]) [address], [address] [place] [address] #### 59457-5 #### [facility] ([id number]) [address] [place] [address] 46262Ouyrgcg [Mass/Vol]9.4 mg/dLNormal8.5-10.5Pro[facility] San DiegoComment on above:Performed By: #### CBC, 29288-4, 45209-1, 2731-8, 65407-5, 06333-9, 64334-5, BMP, 5196-1, 34046-3, 5193-8, 6969-0, UPCR, SIFE, 46298-5, 6968-2, 2776-1 #### [facility] ([id number]) [address], [address] [place] [address] #### 44293-2 #### [facility] ([id number]) [address] [place] [address] 36402Qgnupsow [Moles/Vol]107 mmol/FNnlhxh25-846UlcLuhmdn [facility] San DiegoComment on above:Performed By: #### CBC, 38874-1, 57655-4, 2731-8, 11192-3, 47897-4, 81675-4, BMP, 5196-1, 52709-1, 5193-8, 6969-0, UPCR, SIFE, 88406-6, 6968-2, 2777-1 #### [facility] ([id number]) [address] [address], [address] [place] [address] #### 35044-0 #### [facility] ([id number]) [address] [place] [address] 64442WC7 [Moles/Vol]28 mmol/WYdqvwq44-61VuaEbllxxTriHealth [facility] Comment on above:Performed By: #### BERTA, 70042-0, 73099-9, 2731-8, 70966-5, 40948-4, 23739-7, BMP, 5196-1, 33717-1, 5193-8, 6969-0, UPCR, SIFE, 60622-3, 6968-2, 2777-1 #### [facility] ([id number]) [address] [facility], [address] [place] [address] #### 06479-1 #### [facility] ([id number]) [address] [place] [address] 13009Hxelfehjaw [Mass/Vol]0.77 mg/dLNormal0.40-1.00[facility] Warren HospitalComment on above:Result Comment: METHOD TRACEABLE TO IDMS STANDARD Performed By: #### BERTA, 91193-2, 49046-0, 2731-8, 37013-7, 53693-0, 42097-6, BMP, 5196-1, 92018-3, 5193-8, 6969-0, UPCR, SIFE, 16228-9, 6968-2, 2777-1 #### [facility] ([id number]) [address], [address] [place] [address] #### 24023-6 #### [facility] ([id number]) [address] [place] [address] 89423yROT (CKD-EPI) NON-RACE DEPENDENT>90Normal>59ProCovenant Health LevellandComment on above:Result Comment: Reported eGFR is based on the CKD-EPI 2020 equation that does not use a race coefficient.Performed By: #### BERTA, 77010-2, 47326-0, 2731-8, 09789-4, 86235-9, 16937-2, BMP, 5196-1, 10648-3, 5193-8, 6969-0, UPCR, SIFE, 04854-8, 6968-2, 2777-1 #### [facility] ([id number]) [address] [place] [address], [facility] [address] [place] [address] #### 97558-1 #### [facility] ([id number]) [address] [place] [address] 20509Hmsahxq [Mass/Vol]89 mg/dIFcdpym24-29NyjQnjomlCovenant Health Levelland Comment on above:Performed By: #### CBC, 11154-2, 71906-1, 2731-8, 51726-5, 07164-6, 06643-9, BMP, 5196-1, 94682-7, 5193-8, 6969-0, UPCR, SIFE, 95648-5, 6968-2, 2777-1 #### [facility] ([id number]) [address] [place] [address], [address] [place] [address] #### 14474-1 #### [facility] ([id number]) [address] [place] [address] 34444Tbbohlqgq [Moles/Vol]3.7 mmol/LNormal3.5-5.0ProCovenant Health LevellandComment on above:Performed By: #### CBC, 68223-5, 58792-1, 2731-8, 56869-4, 41538-8, 59024-9, BMP, 5196-1, 17907-5, 5193-8, 6969-0, UPCR, SIFE, 80381-2, 6968-2, 2777-1 #### [facility] ([id number]) [address] [place] [address], [address] [place] [address] #### 99953-1 #### [facility] ([id number]) [address] [place] [address] 11864Srdixt [Moles/Vol]143 mmol/WTrllxt248-816LctJcvlin Ardenvoir HospitalComment on above:Performed By: #### CBC, 90235-8, 38988-7, 2731-8, 43821-3, 18425-4, 63617-5, BMP, 5196-1, 61641-3, 5193-8, 6969-0, UPCR, SIFE, 01510-8, 6968-2, 2777-1 #### [facility] ([id number]) [address] [place] [address], [facility] [address] [place] [address] #### 36191-6 #### [facility] ([id number]) [address] [place] [address] 59781Grbx nitrogen [Mass/Vol]12 mg/dLNormal5-ProCovenant Health LevellandComment on above:Performed By: #### CBC, 98379-2, 99816-4, 2731-8, 07428-9, 19762-0, 87014-1, BMP, 5196-1, 75822-7, 5193-8, 6969-0, UPCR, SIFE, 39222-0, 6968-2, 2777-1 #### [facility] ([id number]) [address] [place] [address], [place] [address] #### 04801-1 #### [facility] ([id number]) [address] [place] [address] 23327IUVREWPC BLOOD COUNTon 84-81-5998Hgjiiukwhsn distribution width (RBC) [Ratio]12.8 %Ryorzq64.5-15.0ProCovenant Health LevellandComment on above: Performed By: #### CBC, 36988-7, 15939-4, 2731-8, 06453-9, 86560-4, 26736-4, BMP, 5196-1, 30234-1, 5193-8, 6969-0, UPCR, SIFE, 58842-7, 6968-2, 2777-1 #### [facility] ([id number]) [address] [place] [address], [address] [place] [id number] #### 62730-1 #### [facility] ([id number]) [address] [place] [address] 11831Eknzeqxwcy (Bld) [Volume fraction]38.9 %Veytky76-06EobZyyguzCovenant Health LevellandComment on above:Performed By: #### CBC, 25748-0, 55001-6, 2731- 8, 39396-0, 78488-8, 33006-5, BMP, 5196-1, 44180-9, 5193-8, 6969-0, UPCR, SIFE, 44740-5, 6968-2, 2777-1 #### [facility] ([id number]) [address] [place] [address], [address] [address] #### 44533-5 #### [facility] ([id number]) [address] [place] [address] 14609Zytlyhkctk (Bld) [Mass/Vol]13.3 g/eZTqzmjc88.7-15.5ProMedica [facility] Hospital Of San DiegoComment on above:Performed By: #### CBC, 59764-7, 90658-3, 2731- 8, 55210-7, 11494-0, 59048-2, BMP, 5196-1, 10564-5, 5193-8, 6969-0, UPCR, SIFE, 59902-3, 6968-2, 2777-1 #### [facility] ([id number]) [address] [place] [address], [address] [place] [address] #### 43256-1 #### [facility] ([id number]) [address] [place] [address] 52012ABD (RBC) [Entitic mass]32.0 taOnmddr85-70MdjWsijmfCovenant Health LevellandComment on above:Performed By: #### CBC, 29321-7, 56757-8, 2731-8, 44659-0, 07506-9, 69881-8, BMP, 5196-1, 94342-8, 5193-8, 6969-0, UPCR, SIFE, 09860-0, 6968-2, 2777-1 #### [facility] ([id number]) [address] [facility], [address] [place] [address] #### 81104-1 #### [facility] ([id number]) [address] [place] [address] 28264NTYR (RBC) [Mass/Vol]34.3 g/pDEqngdz30-17YosXephkjCovenant Health LevellandComment on above:Performed By: #### CBC, 96874-8, 50884-8, 2731-8, 05727-2, 54357-6, 24094-0, BMP, 5196-1, 82736-0, 5193-8, 6969-0, UPCR, SIFE, 82305-1, 6968-2, 2777-1 #### [facility] ([id number]) [address] [facility], [address] [place] [address] #### 96432-0 #### [facility] ([id number]) [address] [place] [address] 57767XJF (RBC) [Entitic vol]93 kWValigk73-824HcxCwkovx [facility]ont HospitalComment on above:Performed By: #### CBC, 10920-7, 52967-2, 2731-8, 74568-8, 54505-5, 47270-8, BMP, 5196-1, 82173-0, 5193-8, 6969-0, UPCR, SIFE, 59048-3, 6968-2, 2777-1 #### [facility] ([id number]) [address] [facility], [address] [place] [address] #### 93822-6 #### [facility] ([id number]) [address] [place] [address] 92798Msdzpiol mean volume (Bld) [Entitic vol]9.4 fLNormal7-12 [facility] Of San DiegoComment on above:Performed By: #### CBC, 34641-3, 95232-5, 2731-8, 23094-6, 45006-4, 61422-4, BMP, 5196-1, 89936-2, 5193-8, 6969- 0, UPCR, SIFE, 27351-4, 6968-2, 2777-1 #### [facility] ([id number]) [address] [facility], [address] [place] [address] #### 08466-0 #### [facility] ([id number]) [address] [place] [address] 10964Ntrikmuhs (Bld) [#/Vol]268 10*3/aDWliate682-905DziYjiuqf [facility] HospitalComment on above:Performed By: #### BERTA, 14709-7, 25125-3, 2731- 8, 14132-9, 78625-0, 00220-6, BMP, 5196-1, 60814-3, 5193-8, 6969-0, UPCR, SIFE, 05166-3, 6968-2, 2777-1 #### [facility] ([id number]) [address] [facility], [address] [place] [address] #### 47318-9 #### [facility] ([id number]) [address] [place] [address] 50747NMB COUNT4.17 X10E12/LNormal3.80-5.20[facility] Comment on above:Performed By: #### CBC, 51738-8, 16768-7, 2731-8, 43897-5, 35518-2, 17862-1, BMP, 5196-1, 19876-6, 5193-8, 6969-0, UPCR, SIFE, 27371-2, 6968-2, 2777-1 #### [facility] ([id number]) [address], [address] [place] [address] #### 88927-8 #### [facility] ([id number]) [address] [place] [address] 37812JTE (Bld) [#/Vol]5.5 10*3/uLNormal4.0-11.0ProCovenant Health LevellandComment on above:Performed By: #### CBC, 49268-2, 36978-6, 2731-8, 48325-9, 21232-2, 71169-2, BMP, 5196-1, 31128-2, 5193-8, 6969-0, UPCR, SIFE, 04828-3, 6968-2, 2777-1 #### [facility] ([id number]) [address], [address] [place] [address] #### 16931-3 #### [facility] ([id number]) [address] [place] [address] 18830MGEJ LIGHT CHAINSon 21-43-1723ARPF MARY ANN/LAMBD RATIO1.32Normal 0.26-1.65ProCovenant Health LevellandComment on above:Performed By: #### 71683-9, 2777-1, BMP, CBC, UPCR #### [facility] ([id number]) [address], [address] [place], [place] [address]QGTP KAPPA LT CHAINS1.50 mg/dLNormal0.33-1.94ProCovenant Health LevellandComment on above:Performed By: #### 05095-9, 2777-1, BMP, CBC, UPCR #### [facility] ([id number]) [address], [address] [place], [place] [address]CBBO LAMBDA LT CHAINS1.14 mg/dLNormal0.57-2.63ProMetrohealth Par[facility] Medical Center HospitalComment on above:Performed By: #### 39192-7, 2777-1, BMP, CBC, UPCR #### [facility] ([id number]) [address], [address] [place], [place] [address]Zxwzrlfpog basement membrane IgG Qn (S)on 62-36-8496HLO IgG Ab <0.2Normal<1.0[facility] Warren HospitalComment on above:Performed By: #### 79093-6, 2777-1, BMP, CBC, UPCR #### [facility] ([id number]) [address], [address] [place], [place] [address]OQS core Ab IA Qlon 28-86-4170CUMC HBcNon-ReactiveNormalNRCT ProMmary starke har[facility] psychiatry centera [facility] San DiegoComment on above:Result Comment: NEW TEST METHOD Performed By: #### 07764-1, 2777-1, BMP, CBC, UPCR #### [facility] ([id number]) [address], [address] [place], [place] [address]YMF surface Ab IA Qnon 09-61-5216Gkgu HBs quant.59.60 mIU/mL NormalProCovenant Health LevellandComment on above:Result Comment: NOTE Vaccinated: >=10.00 mIU/mL, Positive (Immune) Unvaccinated: <10.00 mIU/mL, Negative (Not Immune) Interpretive values have changed due to implementation of a new method. Values run higher than previous method.Performed By: #### 96233-9, 2777-1, BMP, CBC, UPCR #### [facility] ([id number]) [address], [address] [place], [place] [address]DHX surface Ag IA Qlon 88-51-3936OQZKMRINW B SURF AGNon-Reactive NormalNRCTProCovenant Health LevellandComment on above:Result Comment: NEW TEST METHODPerformed By: #### 49183-0, 2777-1, BMP, CBC, UPCR #### [facility] ([id number]) [address], [address] [place], [place] [address]UGJ Ab IA Qlon 53-71-9397SXJE HCV W/PCR REFLXNon-ReactiveNormal NRCTMercy Health St. Joseph Warren HospitalComment on above:Result Comment: NEW TEST METHOD NOTE If recent infection suspected, recommend repeat testing (>2 months). Nrolpa-du-fhepcw ratio is <1.00.Performed By: #### 33533-2, 2777-1, BMP, CBC, UPCR #### [facility] ([id number]) [address], [address] [place], [place] [address]WHB 1+2 Ab+HIV1 p24 Ag IA Qlon 36-01-3108NLE 1 and 2 Ab/Ag ScreenNon-ReactiveNormalNRCTMercy Health St. Joseph Warren HospitalCombronson south haven hospital on above:Result Comment: NEW TEST METHOD [...] HIV test results or diagnoses.Performed By: #### 19483-0, 2777-1, BMP, CBC, UPCR #### [facility] ([id number]) [address], [address] [place], [place] [address]NMRZGDUSRro 03-34-4738Pujjnjbgs [Mass/Vol]1.7 mg/dLLow1.8-2.6 [facility] San DiegoComment on above:Performed By: #### 66666-2, 2777-1, BMP, CBC, UPCR #### [facility] ([id number]) [address], [address] [place], [place] [address]Azvqbzngsxlhqjy Ab Qn (S)on 94-40-1062Xkwjzmapsfiexiv Ab<0.2 Normal<1.0[facility]Com[facility] on above:Performed By: #### 77132-1, 2777-1, BMP, CBC, UPCR #### [facility] ([id number]) [address], [address] [place], [place] [address]Smtizgeogp cytoplasmic Ab panel IF (S)on 18-40-4400o-ANCA NegativeNormalNegativeWilson Memorial Hospital on above:Performed By: #### 75002-5, 2777-1, BMP, CBC, UPCR #### [facility] ([id number]) [address], [address] [place], [place] [address]k-JVWROnplegijBcyydsNsgqteyxKmmTsissn Fremont HospitalComment on above:Result Comment: NOTE Negative for cANCA and pANCA patterns by immunofluorescence. ADDITIONAL INFORMATION This test was developed and its performance characteristics determined by [facility] in a manner consistent with CLIA requirements. This test has not been cleared or approved by the U.S. Food and Drug Administration. Test Performed by: [place] [address] Facing Grinder: Hai Carias Ph.D.; CLIA# [id number] By: #### 43703- 9, 2777-1, BMP, CBC, UPCR #### [facility] ([id number]) [address] [place] [address] [place] [address]Rearzwu Ab IA Ql (S)on 15-45-9354YKX Screen w/reflexNegative NormalNEGWilson Memorial Hospital on above:Result Comment: Testing performed using multiplex flow immunoassay. Eleven different antigens associated with systemic autoimmune diseases (dsDNA,Sm,Sm/ASSISTANT ELEMENTARY TEACHER,ASSISTANT ELEMENTARY TEACHER,Chromatin, SSA,SSB,Lily-1,Scl70,Ribo P,Centromere B) are included in this screening test.Performed By: #### 40763-7, 2777-1, BMP, CBC, UPCR #### [facility] ([id number]) [address], [address] [place], [place] [address]FSHNQWEZSFbt 65-78-2831Wbnrsxkht [Mass/Vol]4.0 mg/dLNormal 2.4-4.9[facility] HospitalComment on above:Performed By: #### 67353-7, 2777-1, BMP, CBC, UPCR #### [facility] ([id number]) [address], [address] [place], [place] [address]OMFDMKT CREAT RATIOon 71-97-1219RGQPBT URINE VBPQVPB15 mg/L Normal<120ProCovenant Health LevellandComment on above:Performed By: #### 57600-3, 2777-, BMP, CBC, UPCR #### [facility] ([id number]) [address], [address] [place], [place] [address]G/PRO/SCREENING SPECIALIST RATIO CALC0.04Normal<0.2PTriHealth Good Samaritan [facility] Comment on above:Result Comment: Nephrotic Syndrome is associated with ratios >3.5Performed By: #### 82366-2, 2777-, BMP, CBC, UPCR #### [facility] ([id number]) [address], [address] [place], [place] [address]SQZFP CREATININE,RUQ728.27 mg/dLNoalMercy Health St. [facility] Comment on above:Performed By: #### 34871-9, 2777-1, BMP, CBC, UPCR #### [facility] ([id number]) [address], [address] [place], [place] [address]Fnywcxzldr.intact [Mass/Vol]on 99-69-6252EHV NLNORB75 pg/mL Yrqmpj03-95HurQbqwxoCovenant Health LevellandComment on above:Performed By: #### 82958- 9, 2777-1, BMP, CBC, UPCR #### [facility] ([id number]) [address], [address] [place], [place] [address]Zfeijjaqnd 3 Ab Qn (S)on 15-52-1002Liluocettv 3 IgG Ab<0.2Normal <1.0ProCovenant Health LevellandComment on above:Performed By: #### 21519-1, 2777- 1, BMP, CBC, UPCR #### [facility] ([id number]) [address], [address] [place], [place] [address]STXTW IMMUNOFIXATIONon 85-00-8625YzW [Mass/Vol]155 mg/dLNormal 68-378Mer[facility] St[facility] Warren HospitalComment on above:Performed By: #### CBC, 25928- 9, 08231-3, 2731-8, 05098-3, 19194-0, 77849-0, BMP, 5196-1, 44165-5, 5193-8, 6969-0, UPCR, SIFE, 38488-1, 6968-2, 2777-1 #### [facility] ([id number]) [address], [address] [place] [address] #### 07415-5 #### [facility] ([id number]) [address] [place] [address]WxK [Mass/Vol]974 mg/eSYmfain368-2861RssGzxngo[address] [place] [address] Comment on above:Performed By: #### CBC, 06049-6, 70192-2, 2731-8, 18039-7, 03989-1, 24807-7, BMP, 5196-1, 55914-6, 5193-8, 6969-0, UPCR, SIFE, 10257-5, 6968-2, 2777-1 #### [facility] ([id number]) [address], [address] [place] [address] #### 55662-5 #### [facility] ([id number]) [address] [place] [address]UoO [Mass/Vol]62 mg/dUHfvxjv07-372ThwLoplhpMercy Health St. [facility] Comment on above:Performed By: #### CBC, 60227-1, 58087-3, 2731-8, 01497-8, 96858-0, 77708-4, BMP, 5196-1, 55616-2, 5193-8, 6969-0, UPCR, SIFE, 54825-8, 6968-2, 2777-1 #### [facility] ([id number]) [address], [address] [place] [address] #### 02370-1 #### [facility] ([id number]) [address] [place] [address]IFYWBM PROFILE INTERPUnremarkable pattern and quantitation, no monoclonal bands.NormalProMedica Children'S Hospital Of San DiegoComment on above:Performed By: #### CBC, 86450-8, 37169-7, 2731-8, 60429-1, 77964-6, 30401-4, BMP, 5196-1, 09649-1, 5193-8, 6969-0, UPCR, SIFE, 78135-6, 6968-2, 277-1 #### [facility] ([id number]) [address], [address] [place] [address] #### 33875-0 #### [facility] ([id number]) [address] [place] [address]898OTEZZGKEZNhd 20-22-0307Ciyhkzkwv Ql (U)NegativeNormalNEG ProMed[facility] Hospital Of San DiegoComment on above:Performed By: #### 90683-7, 2777-1, BMP, CBC, UPCR #### [facility] ([id number]) [address], [address] [place], [place] [address]SLGSC/HGBNegativeNormalNEGProBlanchard Valley Health System Bluffton Hospitalca [facility] Hospital Of San DiegoComment on above:Performed By: #### 87037-1, 2777-1, BMP, CBC, UPCR #### [facility] ([id number]) [address], [address] [place], [place] [address]Hnywc (U)ORANGEAbnormalYELLOWProMedica Ardenvoir HospitalComment on above:Performed By: #### 52725-4, 2777-1, BMP, CBC, UPCR #### [facility] ([id number]) [address], [address] [place], [place] [address]Jughhew Ql (U)NegativeNormalNEGProCovenant Health LevellandComment on above:Performed By: #### 46647-4, 277-, BMP, CBC, UPCR #### [facility] ([id number]) [address], [address] [place], [place] [address]Lzedicv Ql (U)NegativeNormalNEGProCovenant Health LevellandComment on above:Performed By: #### 21760-1, 277-, BMP, CBC, UPCR #### [facility] ([id number]) [address], [address] [place], [place] [address]Mrqazwscv esterase Test strip Ql (U)NegativeNoalNEGMercy Health St. Joseph Warren HospitalCombronson south haven hospital on above:Performed By: #### 12724-2, 277-, BMP, CBC, UPCR #### [facility] ([id number]) [address], [address] [place], [place] [address]ASLCZNQQJNZBXWokkkerwNXYRYrhJnlfec [facility]remont HospitalComment on above:Performed By: #### 34723-5, 277-, BMP, CBC, UPCR #### [facility] ([id number]) [address], [address] [place], [place] [address]Hddbfzp Ql (U)NegativeNormalNEGProCovenant Health LevellandComment on above:Performed By: #### 56752-3, 277-1, BMP, CBC, UPCR #### [facility] ([id number]) [address], [address] [place], [place] [address]nT (U)5.5 [pH]Normal5.0-8.5PTriHealth Good Samaritan HospitalComment on above:Performed By: #### 33817-2, 2776-1, BMP, CBC, UPCR #### [facility] ([id number]) [address], [address] [place], [place] [address]Txovusy Ql (U)NegativeNormalNEGProCovenant Health LevellandComment on above:Performed By: #### 11303-4, 2776-, BMP, CBC, UPCR #### [facility] ([id number]) [address], [address] [address]X.B.CELLS2 /hpfNormal0-5PTriHealth Good Samaritan HospitalComment on above:Performed By: #### 51965-8, 2776-09, BMP, CBC, UPCR #### [facility] ([id number]) [address], [address] [address]Zrcbwyls gravity (U) [Rel density]1.475Txujow8.003-1.035 Pro[facility] Hospital Of San DiegoComment on above:Performed By: #### 09637-9, 2776-09, BMP, CBC, UPCR #### [facility] ([id number]) [address], [address] [address]LZUIGNVY EPITHELIUM6 /hpfHigh0-5PTriHealth Good Samaritan Hospital Comment on above:Performed By: #### 22138-4, 2776-09, BMP, CBC, UPCR #### [facility] ([id number]) [address], [address] [address]ETSXGDDLLQPTBGJAjvhnpswYAXAMVjzYhjmbc [facility]ont HospitalComment on above:Performed By: #### 51554-4, 2776-, BMP, CBC, UPCR #### [facility] ([id number]) [address], [address] [address]Fxivsrvlrssz (U) [Mass/Vol]mg/dLNormal<1.1PTriHealth Good Samaritan HospitalComment on above:Performed By: #### 96821-8, 2776-, BMP, CBC, UPCR #### [facility] ([id number]) [address], [address] [place], [place] [address]F.B.CELLS1 /hpfNormal0-5ProMedica [facility] Hospital Of San DiegoComment on above:Performed By: #### 27167-6, 2777-, BMP, CBC, UPCR #### [facility] ([id number]) [address], [address] [place], [place] [address]Thjktml D+Metabolites [Mass/Vol]on 23-32-1557YBUROSA D 25 HYD TOT18.5 ng/gLMes16-540DbaKbikmq [facility] San DiegoComment on above:Result Comment: Vitamin D status 25 [place] Vitamin D Deficiency <20 ng/mL Insufficiency 20-29 ng/mL Sufficiency 30-100 ng/mL Toxicity >100 ng/mL NOTE: A pediatric reference range has not been established by the serger of this kit. The [place] [employer] recommends a Vitamin D level of = or >20ng/mL in infants and children.Performed By: #### 46865-3, 27703-28, BMP, CBC, UPCR #### [facility] ([id number]) [address], [address] [address]YX RETROPERITONEAL COMPLETEon 02-31-8250PX RETROPERITONEAL COMPLETEUS RETROPERITONEAL COMPLETE HISTORY: A 28-year-old [...] by Misael Knox MD on 07/19/2024 5:08 PMNormalProCovenant Health LevellandBASI METABOLIC PANLon 49-90-5778Fmoln gap [Moles/Vol]9 mmol/LNormal5-15 [facility] Daytonedica [facility] Of San DiegoComment on above:Performed By: #### 80510-2, 2777-1, BMP, CBC, UPCR #### [facility] ([id number]) [address], [address] [place], [place] [address]Bqrwcnx [Mass/Vol]9.2 mg/dLNormal8.5-10.5PAvoyelles Hospitalica Children[facility] Hospital Of San DiegoComment on above:Performed By: #### 45109-8, 2777-1, BMP, CBC, UPCR #### [facility] ([id number]) [address], [address] [place], [place] [address]Txvgyiih [Moles/Vol]107 mmol/TXdktig89-483YprTaplrlMercy Health St. Joseph Warren HospitalComment on above:Performed By: #### 38498-9, 2777-1, BMP, CBC, UPCR #### [facility] ([id number]) [address], [address] [place], [place] [address]EF8 [Moles/Vol]26 mmol/KQuuugc47-17MtaRhhtmwTriHealth Good Samaritan Hospital Comment on above:Performed By: #### 00109-3, 2777-, BMP, CBC, UPCR #### [facility] ([id number]) [address], [address] [place], [place] [address]Rcxmvcpldk [Mass/Vol]0.83 mg/dLNormal0.40-1.00Mer[facility] St[facility] Warren HospitalComment on above:Result Comment: METHOD TRACEABLE TO IDMS STANDARD Performed By: #### 86779-6, 2777-, BMP, CBC, UPCR #### [facility] ([id number]) [address], [address] [place], [place] [address]jAGX (CKD-EPI) NON-RACE DEPENDENT>90Normal>59ProCovenant Health LevellandComment on above:Result Comment: Reported eGFR is based on the CKD-EPI 2020 equation that does not use a race coefficient.Performed By: #### 64600-3, 2777-, BMP, CBC, UPCR #### [facility] ([id number]) [address], [address] [place], [place] [address]Ujylrxk [Mass/Vol]97 mg/hEIrwlto83-57SzoVpcxtnMercy Health St. [facility] Comment on above:Performed By: #### 75938-6, 2777-, BMP, CBC, UPCR #### [facility] ([id number]) [address], [address] [place], [place] [address]Kihhmkysm [Moles/Vol]4.2 mmol/LNormal3.5-5.0Mer[facility] Health St. [facility] Warren HospitalComment on above:Performed By: #### 09410-9, 2777-, BMP, CBC, UPCR #### [facility] ([id number]) [address], [address] [place] [address]Ijuygy [Moles/Vol]142 mmol/QTahplt697-825FoqYrxygxMercy Health St. Joseph Warren HospitalComment on above:Performed By: #### 97194-6, 2776-09, BMP, CBC, UPCR #### [facility] ([id number]) [address], [address] [place], [place] [address]Gehw nitrogen [Mass/Vol]18 mg/dLNormal5-23ProCovenant Health LevellandComment on above:Performed By: #### 54105-9, 2776-09, BMP, CBC, UPCR #### [facility] ([id number]) [address], [address] [place], [place] [address]UBQHZTOL BLOOD COUNTon 97-89-4470Bcgiwvqvsru distribution width (RBC) [Ratio]12.9 %Oairzc36.5-15.0Mer[facility] Health St. [facility] Warren HospitalComment on above: Performed By: #### 47975-0, 2776-09, BMP, CBC, UPCR #### [facility] ([id number]) [address], [address] [place], [place] [address]Ynawsvdzzm (Bld) [Volume fraction]42.6 %Qcslwt09-17HqfRidyneCovenant Health LevellandComment on above:Performed By: #### 29565-3, 2776-09, BMP, CBC, UPCR #### [facility] ([id number]) [address], [facility] [address] [place], [place] [address]Ghvsqjjgde (Bld) [Mass/Vol]14.4 g/tRDfmetu28.7-15.5PTriHealth Good Samaritan HospitalComment on above:Performed By: #### 16185-5, 2776-09, BMP, CBC, UPCR #### [facility] ([id number]) [address], [address] [place], [place] [address]ZTI (RBC) [Entitic mass]32.3 zxUtwfyo42-39QevGnckndCovenant Health LevellandComment on above:Performed By: #### 78321-0, 277-, BMP, CBC, UPCR #### [facility] ([id number]) [address], [address] [place] [address]JYYQ (RBC) [Mass/Vol]33.8 g/tMGpdesh77-11MwjRzzriaCovenant Health LevellandComment on above:Performed By: #### 44937-2, 277-, BMP, CBC, UPCR #### [facility] ([id number]) [address], [address] [place], [place] [address]BYS (RBC) [Entitic vol]96 tDTnmfof95-678YmpAhjdib [facility] HospitalComment on above:Performed By: #### 21865-9, 2776-, BMP, CBC, UPCR #### [facility] ([id number]) [address], [address] [place], [place] [address]Ipayvgag mean volume (Bld) [Entitic vol]9.0 fLNormal7-12 [facility] Of San DiegoComment on above:Performed By: #### 84530-6, 277-, BMP, CBC, UPCR #### [facility] ([id number]) [address], [address] [place], [place] [address]Wufdiqrmi (Bld) [#/Vol]269 10*3/iGMarffz883-175LajHhpzpg [facility] HospitalComment on above:Performed By: #### 36826-9, 277-, BMP, CBC, UPCR #### [facility] ([id number]) [address], [address] [place] [address]ATY COUNT4.45 X10E12/LNormal3.80-5.20[facility] Comment on above:Performed By: #### 42853-7, 277-, BMP, CBC, UPCR #### [facility] ([id number]) [address], [address] [place], [place] [address]MXG (Bld) [#/Vol]5.1 10*3/uLNormal4.0-11.0Mer[facility] Health St[facility] Warren HospitalComment on above:Performed By: #### 18365-3, 2777-1, BMP, CBC, UPCR #### [facility] ([id number]) [address], [address] [place] [address]TTNUKWDRBsd 37-38-7318Uurxzweuh [Mass/Vol]1.8 mg/dLNormal1.8-2.6 ProMMount Zion campusComment on above:Performed By: #### 54208-0, 277-1, BMP, CBC, UPCR #### [facility] ([id number]) [address], [address] [place], [place] [address]RJLEXLOZAZul 89-92-7487Bxemefqus [Mass/Vol]3.7 mg/dLNormal 2.4-4.9[facility] Warren HospitalComment on above:Performed By: #### 85794-6, 277-, BMP, CBC, UPCR #### [facility] ([id number]) [address], [address] [place], [place] [address]BRZLXSB CREAT RATIOon 16-46-0552EGXFHK URINE RIHCQAP171 mg/LHigh <120Mer[facility] St. [facility] Warren HospitalComment on above:Performed By: #### 60283-7, 2777- , BMP, CBC, UPCR #### [facility] ([id number]) [address], [address] [place], [place] [address]M/PRO/SCREENING SPECIALIST RATIO CALC0.09Normal<0.2PTriHealth Good Samaritan Hospital Comment on above:Result Comment: Nephrotic Syndrome is associated with ratios >3.5Performed By: #### 43019-6, 2777-1, BMP, CBC, UPCR #### [facility] ([id number]) [address], [address] [place], [place] [address]GRQAA CREATININE,ELH226.44 mg/dLEllett Memorial HospitalalMercy Health St. [facility] Comment on above:Performed By: #### 39227-3, 2777-1, BMP, CBC, UPCR #### [facility] ([id number]) [address], [address] [place], [place] [address]QKATENRSRXhd 58-04-7551Mhvsfebek Ql (U)NegativeNormalNEG [facility] Of San DiegoComment on above:Performed By: #### UA #### [facility] ([id number]) [address] [facility], [address] [place], [place] [address]CLGNX/HGBNegativeNormalNEGProCovenant Health LevellandComment on above:Performed By: #### UA #### [facility] ([id number]) [address] [facility], [address] [place], [place] [address]Xpidq (U)YELLOWNormalYELLOWProCovenant Health LevellandComment on above:Performed By: #### UA #### [facility] ([id number]) [address] [facility], [address] [place], [place] [address]Rvbwgga Ql (U)NegativeNormalNEGProCovenant Health LevellandComment on above:Performed By: #### UA #### [facility] ([id number]) [address] [facility], [address] [place], [place] [address]Aqfabja Ql (U)NegativeNormalNEGProCovenant Health LevellandCombronson south haven hospital on above:Performed By: #### UA #### [facility] ([id number]) [address], [address] [place], [place] [address]Xmfmnqhxd esterase Test strip Ql (U)NegativeNormalNEGProCovenant Health LevellandCombronson south haven hospital on above:Performed By: #### UA #### [facility] ([id number]) [address], [address] [place], [place] [address]QAKQXWGSJNLLHNbcnrojsJMRXPzxZoqijy [facility] HospitalCombronson south haven hospital on above:Performed By: #### UA #### [facility] ([id number]) [address] [facility], [address] [place], [place] [address]Ispcedw Ql (U)NegativeNormalNEGMercy Health St. Joseph Warren HospitalComment on above:Performed By: #### UA #### [facility] ([id number]) [address], [address] [place], [place] [address]pS (U)5.5 [pH]Normal5.0-8.5PTriHealth Good Samaritan HospitalComment on above:Performed By: #### UA #### [facility] ([id number]) [address], [address] [place], [place] [address]Ekiappy Ql (U)TraceAbnormalNEGMercy Health St. Joseph Warren HospitalComment on above:Performed By: #### UA #### [facility] ([id number]) [address], [address] [place], [place] [address]E.B.CELLS1 /hpfNormal0-5PTriHealth Good Samaritan HospitalComment on above:Performed By: #### UA #### [facility] ([id number]) [address], [address] [place], [place] [address]Qupukouo gravity (U) [Rel density]1.904Xkwwux2.003-1.[address] [facility] HospitalComment on above:Performed By: #### UA #### [facility] ([id number]) [address], [address] [place], [place] [address]QZHYKVDC WGMPBDEBOP24 /hpfHigh0-5PTriHealth Good Samaritan Hospital Comment on above:Performed By: #### UA #### [facility] ([id number]) [address], [address] [place], [place] [address]JSNGVGCBQBHHZHJovirvXSGZUIkeLuuyyw [facility] HospitalComment on above:Performed By: #### UA #### [facility] ([id number]) [address], [address] [place], [place] [address]Bdffxqgrzdac (U) [Mass/Vol]mg/dLNormal<1.1ProMedica Ardenvoir HospitalComment on above:Performed By: #### UA #### [facility] ([id number]) [address], [address] [place], [place] [address]D.B.CELLS2 /hpfNormal0-5ProMedica Ardenvoir HospitalComment on above:Performed By: #### UA #### [facility] ([id number]) [address] [facility], [address] [place], [place] [address]ASG,APTIMA HPV,AGE GDLNon 55-40-7719GYS GDLN ACOG TESTINGNote. [facility] HealthcareComment on above:TESTS RESULT FLAG UNITS REF RANGE LAB Clinician Provided Cytology Information Source.............Cervix;Endocervix No. of containers..01 ThinPrep Vial Age Algo ACOG Ligia... -26 10 FLAG LEGEND: L-Low Normal,H-High Normal,LL-Alert Low,HH-Alert High <-Panic Low,>-Panic High,A-Abnormal,AA-Critical Abnormal Performed at: 01 =[facility] [address] Gillian Guillaume MD, IGP, RFX APTIMA HPV ASCUNote.NOMS HealthcareComment on above:TESTS RESULT FLAG UNITS REF RANGE LAB DIAGNOSIS: 02 NEGATIVE FOR INTRAEPITHELIAL LESION OR MALIGNANCY. Specimen adequacy: 02 Satisfactory for evaluation. Endocervical and/or squamous metaplastic cells (endocervical component) are present. Performed by: 02 Matt Martínez, Distillery Miller Helper ([facility]) . 02 Note: Note 02 The [...] Low,>-Panic High,A-Abnormal,AA-Critical Abnormal Performed at: [address] [facility] [address] [place] [address] Gillian Guillaume MD, Performed at: = - [facility] [address], [place] [id number] Facing Grinder: Gillian Guillaume MD, Phone: [phone] Performed at: [facility] [address] [id number] Facing Grinder: Gillian Guillaume MD, Phone: [phone] BRUSH-SPATULA CERVIX ENDOCERVIX CLINISYNCNOMO HealthcareALL BUNon 01-82-0724Ttbx nitrogen [Mass/Vol]6.0 mg/dLLow 7.0 - 18.0 mg/dLMOUNTAINSTAR HEALTHCARE HealthcareALL CBC WITH AUTO DIFFon 35-25-3805IJFPOBMFI ABSOLUTE AUTO0.0NOMO HealthcareBasophils/100 WBC (Bld)0.0 %Low0.2 - 2.0 %[facility] CenterEosinophils/100 WBC (Bld)1.6 %0.9 - 7.0 %[facility] CenterErythrocyte distribution width (RBC) [Ratio]12.7 %11.0 - 15.0 %[facility] HealthcareHematocrit (Bld) [Volume fraction]38.6 %36.0 - 48.0 %[facility] CenterHemoglobin (Bld) [Mass/Vol]13.2 g/dL12.0 - 16.0 g/dLSaint Joseph Health CenterIMMATURE GRANULOCYTES ABS AUTO 0.05HighNOSaint Louis University Health Science CenterImmature granulocytes/100 WBC (Bld)0.6 %High0.0 - 0.5 % [facility] CenterInterpretation and review of laboratory resultsAbnormalSaint Joseph Health CenterLYMPHOCYTES ABSOLUTE AUTO0.9LowNOMS [facility] Citizens HospitalLymphocytes/100 WBC (Bld)9.8 %Low20.5 - 60.0 %[facility] SystemH (RBC) [Entitic mass]33.1 pg26.7 - 34.0 pgLake Regional Health SystemHC (RBC) [Mass/Vol]34.2 g/dL29.9 - 35.2 g/dLLake Regional Health SystemV (RBC) [Entitic vol]96.7 fL81.0 - 99.0 fLSaint Joseph Health CenterMONOCYTES ABSOLUTE AUTO0.4NOMS [facility] HospitalMonocytes/100 WBC (Bld)4.2 %1.7 - 12.0 %[facility] CenterNEUTROPHILS ABSOLUTE AUTO7.3HighNOSaint Louis University Health Science CenterNeutrophils/100 WBC (Bld)83.8 %High43.0 - 75.0 %[facility] CenterPlatelet mean volume (Bld) [Entitic vol]11.0 fL9.5 - 13.5 fLSaint Joseph Health CenterTB EO #0.1NOMS [facility] HospitalTB OZV476QSPRSelect Specialty Hospital RBC3.99LowNOSaint Louis University Health Science CenterTB WBC8.7NOMO HealthcareCLINISYNMEDFIELD STATE HOSPITAL HealthcareALL URIC ACIDon 96-87-9269Nwmfa [Mass/Vol]3.8 mg/dL2.6 - 6.0 mg/dLSaint Joseph Health CenterCCF Joie 19-85-5484AAY [Catalytic activity/Vol]25 U/L14 - 59 U/LNSullivan County Memorial Hospital APTTon 59-43-5701hZJG Coag (Bld) [Time]25.2 [facility] Isaias 92-52-2976TUV [Catalytic activity/Vol]22 U/L15 - 37 U/LNGolden Valley Memorial HospitalMHPT FIBRINOGENon 23-64-2330BMCLJRNTTL533 mg/kGIhwe796 - 400 mg/dLMOUNTAINSTAR HEALTHCARE Healthcare Interpretation and review of laboratory resultsAbForest View HospitalNo Panel Informationon 27-28-1182VJEAPLKNQVCML HealthcareInterpretation and review of laboratory resultsAbAtrium Health Wake Forest Baptist Wilkes Medical CenterMCOH PROTHROMBIN TIME INR W/O COUMon 18-06-3759LC Coag (PPP) [Time]9.9 [facility] INR0.93[facility] HealthcareComment on above:DESIRED INR: 2.0-3.0 CONDITIONS NOT LISTED BELOW 2.5-3.5 FOR PROSTHETIC HEART VALVE REPLACEMENT 2.5-3.5 RECURRENT THROMBOSIS TB CREATININEon 00-08-3629Uvepcmomqw [Mass/Vol]0.51 mg/dLLow0.55 - 1.02 mg/dL [facility] HealthcareGFR/1.73 sq M.predicted CKD-EPI (S/P/Bld) [Vol rate/Area]>6060 - [facility]FS[facility] CenterTB EGFR-NON AF ANDORRAN>6060 - [facility] S[facility] RAPID (URINE)on [id number] SCREEN URINENegativeNEGATIVENOMS HealthcareBARBITURATES SCREEN URINENegativeNEGATIVENOMS Healthcare BENZODIAZEPINES [...] URINENegativeNEGATIVENOMS HealthcareTBH URINE T PROTEIN CREAT RATIOon 26-86-1841XTGSQMHLFU URINE CLVZVB048.07 mg/dL20.00 - 300.00 mg/dL [facility] HealthcareInterpretation and review of laboratory resultsAbnormalNOMS HealthcareProtein (U) [Mass/Vol]22.3 mg/dLHighNINF - 11.9 mg/dLNOMS Healthcare PROTEIN CREATININE RATIO URINE0.20NOMS HealthcareCLINISYNCNOMS HealthcareUS OB BPP W NON-STRESSon [id number], [place] [address] Ultrasound Report Signed Patient: AALIYAH CARVALHO MR#: [id number] : 1995 Acct:[id number] Age/Sex: 28 / F ADM Date: 03/30/24 Loc: [facility] 250-[address]: Juan C Stinson D.O. Ordering Physician: Juan C Stinson D.O. Date of Service: 03/30/24 Procedure(s): US OB BPP w non-stress Accession Number(s): [id number] cc: Juan C Stinson D.O.; Jay Sadler M.D. [address] [address] Patient Name: AALIYAH CARVALHO MRN: [id number] date: 1995 Sex: F Assigned Patient Location: [facility] Current Patient Location: [facility] Accession/Order Number: [id number] Exam Date: 03/30/2024 08:03 Report Date: 03/30/2024 [...] M.D. Signed By: 03/30/24915 DD/ 2 TD/TT: [employer] Administrator:TBHRadiology, Radiologist, MD - 03/30/2024 [place] [address] Ultrasound Report Signed Patient: AALIYAH CARVALHO MR#: [id number] : 1995 Acct:[id number] Age/Sex: 28 / F ADM Date: 03/30/24 Loc: [facility] 250-[address]: Juan C Stinson D.O. Ordering Physician: Juan C Stinson D.O. Date of Service: 03/30/24 Procedure(s): US OB BPP w non-stress Accession Number(s): [id number] cc: Juan C Stinson D.O.; Jay Sadler M.D. The [address] [address] Patient Name: AALIYAH CARVALHO MRN: [id number] date: 1995 Sex: F Assigned Patient Location: [facility] Current Patient Location: [facility] Accession/Order Number: [id number] Exam Date: 03/30/2024 08:03 Report Date: 03/30/2024 [...] M.D. Signed By: 03/30/24915 DD/ 2 TD/TT: [employer] Administrator: JOSE HealthcareRadiology Study observation (narrative)NOMS HealthcareUS OB BPP W NON-STRESSOrdered By: Radiologist Radiology on [id number] Work Phone: US OB GROWTHon [phone], [place] [address] Ultrasound Report Signed Patient: AALIYAH CARVALHO MR#: [id number] : 1995 Acct:[id number] Age/Sex: 28 / F ADM Date: 03/30/24 [facility] [place] 250-[address]: Juan C Stinson D.O. Ordering Physician: Juan C Stinson D.O. Date of Service: 03/30/24 Procedure(s): US OB growth Accession Number(s): [id number] cc: Juan C Stinson D.O.; Jay Sadler M.D. [address] [address] Patient Name: AALIYAH CARVALHO MRN: [id number] date: 1995 Sex: F Assigned Patient Location: [facility] Current Patient Location: [facility] Accession/Order Number: [id number] Exam Date: 03/30/2024 08:03 Report Date: 03/30/2024 [...] M.D. Signed By: 03/30/24919 DD/ 6 TD/TT: [employer] Administrator:TBHRadiology, Radiologist, MD - 03/30/2024 [place] [address] Ultrasound Report Signed Patient: AALIYAH CARVALHO MR#: [id number] : 1995 Acct:[id number] Age/Sex: 28 / F ADM Date: 03/30/24 Loc: [facility] 250-[address]: Juan C Stinson D.O. Ordering Physician: Juan C Stinson D.O. Date of Service: 03/30/24 Procedure(s): US OB growth Accession Number(s): [id number] cc: Juan C Stinson D.O.; Jay Sadler M.D. [place] [address] Patient Name: AALIYAH CARVALHO MRN: [id number] date: 1995 Sex: F Assigned Patient Location: [facility] Current Patient Location: [facility] Accession/Order Number: [id number] Exam Date: 03/30/2024 08:03 Report Date: 03/30/2024 [...] M.D. Signed By: 03/30/24919 DD/ 6 TD/TT: [employer] Administrator: NOMS HealthcareRadiology Study observation (narrative)NOMS HealthcareUS OB GROWTHOrdered By: Radiologist Radiology on 95-47-8912[facility] Work Phone: US OB BPP W NON-STRESSon 90-18-4078[place], [place] [address] Ultrasound Report Signed Patient: AALIYAH CARVALHO MR#: [id number] : 1995 Acct:[id number] Age/Sex: 28 / F ADM Date: 03/23/24 Loc: US Attending Dr: Juan C Stinson D.O. Ordering Physician: Juan C Stinson D.O. Date of Service: 03/23/24 Procedure(s): US OB BPP w non-stress Accession Number(s): [id number] cc: Juan C Stinson D.O.; Jay Sadler M.D. [place] [id number] Patient Name: AALIYAH CARVALHO MRN: [id number] date: 1995 Sex: F Assigned Patient Location: [facility] Current Patient Location: Accession/Order Number: [id number] Exam Date: 03/23/2024 07:57 Report Date: 03/23/2024 [...] Womack M.D. Signed By: 03/23/24900 DD/ TD/TT: [employer] Administrator:TBHRadiologSushma merida MD - 03/23/2024 [place] [address] Ultrasound Report Signed Patient: AALIYAH CARVALHO MR#: [id number] : 1995 Acct:[id number] Age/Sex: 28 / F ADM Date: 03/23/24 Loc: US Attending Dr: Juan C Stinson D.O. Ordering Physician: Juan C Stinson D.O. Date of Service: 03/23/24 Procedure(s): US OB BPP w non-stress Accession Number(s): [id number] cc: Juan C Stinson D.O.; Jay Sadler M.D. The [place] [id number] Patient Name: AALIYAH CARVALHO MRN: [id number] date: 1995 Sex: F Assigned Patient Location: [facility] Current Patient Location: Accession/Order Number: [id number] Exam Date: 03/23/2024 07:57 Report Date: 03/23/2024 [...] M.D. Signed By: 03/23/24900 DD/ 0858 TD/TT: [employer] Administrator: JOSE HealthcareRadiology Study observation (narrative)NOMS HealthcareUS OB BPP W NON-STRESSOrdered By: Radiologist Radiology on 67-10-1967NSQD [employer] Work Phone: us OB BPP W NON-STRESSon 84-23-0069[place] [phone] Ultrasound Report Signed Patient: AALIYHA CARVALHO MR#: [id number] : 1995 Acct:[id number] Age/Sex: 28 / F ADM Date: 03/16/24 Loc: US Attending Dr: Juan C Stinson D.O. Ordering Physician: Juan C Stinson D.O. Date of Service: 03/16/24 Procedure(s): US OB BPP w non-stress Accession Number(s): [id number] cc: Juan C Stinson D.O.; Jay Sadler M.D. [address] [address] Patient Name: AALIYAH CARVALHO MRN: [id number] date: 1995 Sex: F Assigned Patient Location: [facility] Current Patient Location: Accession/Order Number: [id number] Exam Date: 03/16/2024 07:51 Report Date: 03/16/2024 [...] M.D. Signed By: 03/16/24910 DD/ 7 TD/TT: [employer] Administrator:ROBYNHRadiologmagnolia, Radiologist, MD - 03/16/2024 [place] [address] Ultrasound Report Signed Patient: AALIYAH CARVALHO MR#: [id number] : 1995 Acct:[id number] Age/Sex: 28 / F ADM Date: 03/16/24 Loc: US Attending Dr: Juan C Stinson D.O. Ordering Physician: Juan C Stinson D.O. Date of Service: 03/16/24 Procedure(s): US OB BPP w non-stress Accession Number(s): [id number] cc: Juan C Stinson D.O.; Jay Sadler M.D. The [place] [address] Patient Name: AALIYAH CARVALHO MRN: [id number] date: 1995 Sex: F Assigned Patient Location: [facility] Current Patient Location: Accession/Order Number: [id number] Exam Date: 03/16/2024 07:51 Report Date: 03/16/2024 [...] M.D. Signed By: 03/16/24910 DD/ 7 TD/TT: [employer] Administrator: JOSE HealthcareRadiology Study observation (narrative)JOSE HealthcareUS OB BPP W NON-STRESSOrdered By: Radiologist Radiology on 41-69-2454X[facility]O Healthcare Work Phone: US OB GROWTHon 82-05-7831[place] [address] Ultrasound Report Signed Patient: AALIYAH CARVALHO MR#: [id number] : 1995 Acct:[id number] Age/Sex: 28 / F ADM Date: 03/01/24 Loc: [facility] Attending Dr: Juan C Stinson D.O. Ordering Physician: Juan C Stinson D.O. Date of Service: 03/01/24 Procedure(s): US OB growth Accession Number(s): [id number] cc: Juan C Stinson D.O.; Jay Sadler M.D. [place] [address] Patient Name: AALIYAH CARVALHO MRN: [id number] date: 1995 Sex: F Assigned Patient Location: [facility] Current Patient Location: [facility] Accession/Order Number: [id number] Exam Date: 03/01/2024 09:51 Report Date: 03/01/2024 [...] was notified of these findings by the belly dancer at time of imaging. Electronically authenticated by: CHELSEA DELCID Date: 03/01/2024 12:43 Dictated By: Chelsea Delcid M.D. Signed By: 03/01/24 1245 DD/ 1243 TD/TT: [employer] Administrator:TBHRadiology, Radiologist, - 03/01/2024 [place] [address] Ultrasound Report Signed Patient: AALIYAH CARVALHO MR#: [id number] : 1995 Acct:[id number] Age/Sex: 28 / F ADM Date: 03/01/24 Loc: [facility] Attending Dr: Juan C Stinson D.O. Ordering Physician: Juan C Stinson D.O. Date of Service: 03/01/24 Procedure(s): US OB growth Accession Number(s): [id number] cc: Juan C Stinson D.O.; Jay Sadler M.D. The [place] [address] Patient Name: AALIYAH CARVALHO MRN: [id number] date: 1995 Sex: F Assigned Patient Location: [facility] Current Patient Location: [facility] Accession/Order Number: [id number] Exam Date: 03/01/2024 09:51 Report Date: 03/01/2024 [...] was notified of these findings by the belly dancer at time of imaging. Electronically authenticated by: CHELSEA DELCID Date: 03/01/2024 12:43 Dictated By: Chelsea Delcid M.D. Signed By: 03/01/24 1248 DD/ 1243 TD/TT: [employer] Administrator: JOSE HealthcareRadiology Study observation (narrative)NOM HealthcareUS OB GROWTHOrdered By: Radiologist Radiology on 60-86-2426SIEVSaint Joseph Health Center Work Phone: no Panel InformationOrdered By: Radiologist Radiology on 17-98-5160LDCXSaint Joseph Health Center Work Phone: no Panel Informationon 68-37-7297Dbplxvwur Study observation (narrative)NOM HealthcareUS OB ANATOMYon 09-88-8862Swk[place], [place] [address] Ultrasound Report Signed Patient: AALIYAH CARVALHO MR#: [id number] : 1995 Acct:[id number] Age/Sex: 28 / F ADM Date: 12/16/23 Loc: [facility] Attending Dr: Juan C Stinson D.O. Ordering Physician: Juan C Stinson D.O. Date of Service: 12/16/23 Procedure(s): US OB anatomy Accession Number(s): [id number] cc: Juan C Stinson D.O.; Jay Sadler M.D. The [place] [phone] Patient Name: AALIYAH CARVALHO MRN: [facility]:[id number] date: 1995 Sex: F Assigned Patient Location: [facility] Current Patient Location: Accession/Order Number: [id number] Exam Date: 12/16/2023 14:39 Report Date: 12/17/2023 [...] M.D. Signed By: 12/17/2327 DD/ 3 TD/TT: [employer] Administrator:TBHRadiology, Radiologist, - 12/17/[address] [address] Ultrasound Report Signed Patient: AALIYAH CARVALHO MR#: [id number] : 1995 Acct:[id number] Age/Sex: 28 / F ADM Date: 12/16/23 Loc: [facility] Attending Dr: Juan C Stinson D.O. Ordering Physician: Juan C Stinson D.O. Date of Service: 12/16/23 Procedure(s): US OB anatomy Accession Number(s): [id number] cc: Juan C Stinson D.O.; Jay Sadler M.D. The [address] [address] Patient Name: AALIYAH CARVALHO MRN: [id number] date: 1995 Sex: F Assigned Patient Location: [facility] Current Patient Location: Accession/Order Number: [id number] Exam Date: 12/16/2023 14:39 Report Date: 12/17/2023 [...] M.D. Signed By: 12/17/23626 DD/ 3 TD/TT: [employer] Administrator: JOSE Chopra OB CERVICAL LENGTHon 95-11-7807QreEdmond, [place] [address] Ultrasound Report Signed Patient: AALIYAH CARVALHO MR#: [id number] : 1995 Acct:[id number] Age/Sex: 28 / F ADM Date: 12/16/23 Loc: [facility] Attending Dr: Juan C Stinson D.O. Ordering Physician: Juan C Stinson D.O. Date of Service: 12/16/23 Procedure(s): US OB cervical length Accession Number(s): [id number] cc: Juan C Stinson D.O.; Jay Sadler M.D. [place] [address] Patient Name: AALIYAH CARVALHO MRN: [id number] date: 1995 Sex: F Assigned Patient Location: [facility] Current Patient Location: Accession/Order Number: [id number] Exam Date: 12/16/2023 14:39 Report Date: 12/17/2023 [...] M.D. Signed By: 12/17/23626 DD/ 3 TD/TT: [employer] Administrator:TBHRadiology, Radiologist, - 12/17/2023 [place] [address] Ultrasound Report Signed Patient: AALIYAH CARVALHO MR#: [id number] : 1995 Acct:[id number] Age/Sex: 28 / F ADM Date: 12/16/23 Loc: [facility] Attending Dr: Juan C Stinson D.O. Ordering Physician: Juan C Stinson D.O. Date of Service: 12/16/23 Procedure(s): US OB cervical length Accession Number(s): [id number] cc: Juan C Stinson D.O.; Jay Sadler M.D. [place] [id number] Patient Name: AALIYAH CARVALHO MRN: [id number] date: 1995 Sex: F Assigned Patient Location: [facility] Current Patient Location: Accession/Order Number: [id number] Exam Date: 12/16/2023 14:39 Report Date: 12/17/2023 [...] M.D. Signed By: 12/17/23626 DD/ 3 TD/TT: [employer] Administrator: JOSE Chopra OB TRANSVAGINALojamin 02-43-6178MijEdmond, [place] [address] Ultrasound Report Signed Patient: AALIYAH CARVALHO MR#: [id number] : 1995 Acct:[id number] Age/Sex: 28 / F ADM Date: 09/18/23 Loc: US Attending Dr: Juan C Stinson D.O. Ordering Physician: Juan C Stinson D.O. Date of Service: 09/18/23 Procedure(s): US OB transvaginal Accession Number(s): [id number] cc: Juan C Stinson D.O.; Jay Sadler M.D. [place] [id number] Patient Name: AALIYAH CARVALHO MRN: [id number] date: 1995 Sex: F Assigned Patient Location: US Current Patient Location: Accession/Order Number: [id number] Exam Date: 09/18/2023 08:33 Report Date: 09/19/2023 [...] Signed By: 09/19/23 0018 DD/ 0015 TD/TT: [employer] Administrator:TBHRadiology, Radiologist, - 09/19/2023 [place] [address] Ultrasound Report Signed Patient: AALIYAH CARVALHO MR#: [id number] : 1995 Acct:[id number] Age/Sex: 28 / F ADM Date: 09/18/23 Loc: US Attending Dr: Juan C Stinson D.O. Ordering Physician: Juan C Stinson D.O. Date of Service: 09/18/23 Procedure(s): US OB transvaginal Accession Number(s): [id number] cc: Juan C Stinson D.O.; Jay Sadler M.D. The [place] [address] Patient Name: AALIYAH CARVALHO MRN: [id number] date: 1995 Sex: F Assigned Patient Location: US Current Patient Location: Accession/Order Number: [id number] Exam Date: 09/18/2023 08:33 Report Date: 09/19/2023 [...] Signed By: 09/19/23 0018 DD/ 001 TD/TT: [employer] Administrator: JOSE HealthcareRadiology Study observation (narrative)[facility] HealthcareUS OB TRANSVAGINALOrdered By: Radiologist Radiology on 16-50-1531BVLF [employer] Work Phone: pap ACOG PANEL 2: 21 to 29on 12-24-2022..NormalThe Summa HealthComment on above:Performed By: #### [id number] #### [facility] [address] [place] [address] Dr. Narendra Thorne Gdln ACOG Agkozvd44-80DncgzvApmLima Memorial HospitalComment on above:Performed By: #### [id number] #### [facility] [address] [place] [address] Dr. Narendra FranksDIAGNOSIS:CommentSumma Health [facility] Campus on above: Result Comment: NEGATIVE FOR INTRAEPITHELIAL LESION OR MALIGNANCY.Performed By: #### [id number] #### [facility] [address] [place] [address] Dr. Narendra FranksMethodology:CommentNoKettering Health on above: Result Comment: This liquid based ThinPrep(R) pap test was screened with the use of an image guided system.Performed By: #### [id number] #### [place] [address] Dr[address] Narendra FranksNote:CommentSumma Health Akron Campus on above:Result Comment: The Pap smear is a screening test designed to aid in the detection of premalignant and malignant conditions of the uterine cervix. It is not a diagnostic procedure and should not be used as the sole means of detecting cervical cancer. Both false-positive and false-negative reports do occur. .Performed By: #### [id number] #### [facility] [address] [place] [address] Dr. Narendra FranksPerformed by:CommentSumma Health [facility]ron Campus on above: Result Comment: [employer] (ASCP)Performed By: #### [id number] #### [facility] [address] [place] [address] Dr. Narendra FranksReflex Criteria:CommentPremier Health Miami Valley HospitalCombronson south haven hospital on above:Result Comment: The HPV DNA reflex criteria were not met with this specimen result therefore, no HPV testing was performed. .Performed By: #### [id number] #### [facility] [address] [place] [address] Dr. Narendra FranksSpecimejamin adequacy:CommentSumma Health Akron Campus on above:Result Comment: Satisfactory for evaluation. Endocervical and/or squamous metaplastic cells (endocervical component) are present.Performed By: #### [id number] #### [facility] [address] [place] [address] Dr. Narendra Mcintyre AUTO DIFFon 37-96-7861TYNO #0.0 103/ulNormal0.0-0.1[facility] HospitalComment on above:Performed By: #### CBC #### [facility] [address] [place] [address] Dr. Narendra FranksBasophils/100 WBC (Bld)0.4 %Normal0.2-2.0[facility] Comment on above:Performed By: #### CBC #### [facility] [address] [place] [address] Dr. Narendra Mckeon #0.3 103/ulNormal0.0-0.7The Sum[facility] HealthCombronson south haven hospital on above: Performed By: #### CBC #### [facility] [address] [place] [address] Dr. Narendra Luisosinophils/100 WBC (Bld)3.5 %Normal0.9-7.0[facility] Comment on above:Performed By: #### CBC #### [facility] [address] [place] [address] Dr. Narendra Luisrythrocyte distribution width (RBC) [Ratio]14.1 %Exabwp92.0-15.0 [facility] HospitalComment on above:Performed By: #### CBC #### [facility] [address] [place] [address] Dr. Narendra FranksHematocrit (Bld) [Volume fraction]38.2 %Feefge53.0-48.0The Summa HealthComment on above:Performed By: #### CBC #### [facility] [address] [place] [address] Dr. Narendra FranksHemoglobin (Bld) [Mass/Vol]12.6 g/iBRhzifr21.0-16.0The Summa HealthComment on above:Performed By: #### CBC #### [facility] [address] [place] [address] Dr. Narendra Magana #0.01 10e3/ulNormal0.00-0.03The Summa HealthComment on above:Performed By: #### CBC #### [facility] [address] [place] [address] Dr. Narendra Magana %0.1 %Normal0.0-0.5The Summa HealthComment on above: Performed By: #### CBC #### [facility] [address] [place] [address] Dr. Narendra Hogan #2.4 103/ulNormal1.2-3.8The Summa HealthComment on above:Performed By: #### CBC #### [facility] [address] [place] [address] Dr. Narendra Williamhocytes/100 WBC (Bld)30.4 %Gwbwbe51.5-60.0The Summa HealthComment on above:Performed By: #### CBC #### [facility] [address] [place] [address] Dr. Narendra AguilarUAL DIFF REQNONormalThe Summa HealthComment on above: Performed By: #### CBC #### [facility] [address] [place] [address] Dr. Narendra Bhatia (RBC) [Entitic mass]30.4 vbKdutcx01.7-34.0The [facility]ma HealthComment on above:Performed By: #### CBC #### [facility] [address] [place] [address] Dr. Narendra Keller (RBC) [Mass/Vol]33.0 g/dVXnjxev38.9-35.2The Summa HealthComment on above:Performed By: #### CBC #### [facility] [address] [place] [address] Dr. Narendra KellerV (RBC) [Entitic vol]92.0 nJPywpfg43.0-99.0The [facility]ma HealthComment on above:Performed By: #### CBC #### [facility] [address] [place] [address] Dr. Narendra Rivera #0.5 103/ulNormal0.3-0.8The Summa HealthComment on above:Performed By: #### CBC #### [facility] [address] [place] [address] Dr. Narendra Adamsocytes/100 WBC (Bld)6.3 %Normal1.7-12.0[facility] Comment on above:Performed By: #### CBC #### [facility] [address] [place] [address] Dr. Narendra Kinney #4.7 103/ulNormal1.4-6.5The Summa HealthComment on above:Performed By: #### CBC #### [facility] [address] [place] [address] Dr. Narendra Mcgeeutrophils/100 WBC (Bld)59.3 %Ovdjcz67.0-75.0The [facility]ma HealthComment on above:Performed By: #### CBC #### [facility] [address] [place] [address] Dr. Narendra Kirkpatricklet mean volume (Bld) [Entitic vol]10.5 fLNormal9.5-13.5The [facility]ma HealthComment on above:Performed By: #### CBC #### [facility] [address] [place] [address] Dr. Narendra CarlinT272 103/zfHipxbe316-169Wrt Summa HealthComment on above: Performed By: #### CBC #### [facility] [address] [place] [address] Dr. Narendra SalmonC4.15 106/ulCritically low4.20-5.40The Summa HealthComment on above:Performed By: #### CBC #### [facility] [address] [place] [address] [address] Narendra FranksWBC8.0 103/ulNormal4.0-11.0The Summa HealthComment on above: Performed By: #### CBC #### [facility] [address] [place] [address] Dr. Narendra FranksCRPon 30-13-7738ETG [Mass/Vol]mg/LNormal<=1.0The [facility]ma HealthComment on above:Performed By: #### CRP #### [facility] [address] [place] [address] Dr. Narendra FranksCT CSPINE WO CONon 02-42-1988GA CSPINE WO CONINDICATION: 26 years old; Female. [...] Electronically authenticated by: YESSENIA HICKEY Date: 2022-06-26 21:58NormKettering Health TroyMONOon 09-68-9763Xusbittix (Bld) [#/Vol]NegativeNormalNEGATIVE The Summa HealthComment on above:Performed By: #### MONO, PREG #### [facility] [address] [place] [address] [address] Narendra FranksPREG HCG QUALon 55-87-2587UHUKGCHGU, QUALNegativeNormalNEGATIVE The Summa HealthComment on above:Performed By: #### MONO, PREG #### [facility] [address] [place] [address] [address] Narendra FranksPROF CHEM 8 (BAS METB)on 55-31-8673Cigpi gap [Moles/Vol]9.8 mmol/LNormalThe [facility] Shriners Hospitalment on above:Performed By: #### BMP #### [facility] [address] [place] [address] [address] Narendra FranksCalcium [Mass/Vol]8.5 mg/dLNormal8.5-10.1[facility] Comment on above:Performed By: #### BMP #### [facility] [address] [place] [address] [address] Narendra FranksChloride [Moles/Vol]104 mmol/OOqftgi94-318SviCleveland Clinic [facility] Comment on above:Performed By: #### BMP #### [facility] [address] [place] [address] [address] Narendra FranksCO2 [Moles/Vol]28.0 mmol/UPsljhe80.0-32.0[facility] Comment on above:Performed By: #### BMP #### [facility] [address] [place] [address] Dr. Narendra FranksCreatinine [Mass/Vol]0.77 mg/dLNormal0.55-1.02[facility] HospitalComment on above:Performed By: #### BMP #### [facility] [address] [place] [address] Dr. Narendra LuisGFR-AF ANDORRAN>60Normal>=60[facility] HospitalComment on above:Performed By: #### BMP #### [facility] [address] [place] [address] Dr. Narendra LuisGFR-NON AF ANDORRAN>60Normal>=60[facility] Lodi HospitalComment on above:Performed By: #### BMP #### [facility] [address] [place] [address] [address] Narendra FranksGlucose [Mass/Vol]90 mg/uJFnomog79-351EosCleveland Clinic [facility] Comment on above:Performed By: #### BMP #### [facility] [address] [place] [address] Dr. Narendra FranksPotassium [Moles/Vol]3.8 mmol/LNormal3.5-5.1[facility] Comment on above:Performed By: #### BMP #### [facility] [address] [place] [address] Dr. Narendra FranksSodium [Moles/Vol]138 mmol/FAhijpb459-010GpsCleveland Clinic [facility] Comment on above:Performed By: #### BMP #### [facility] [address] [place] [address] [address] Narendra Jerez nitrogen [Mass/Vol]15.0 mg/dLNormal7.0-18.0The [facility]ma HealthComment on above:Performed By: #### BMP #### [facility] [address] [place] [address] [address] Narendra FranksUrea nitrogen/Creatinine [Mass ratio]19.5 mg/mgNormalThe Summa HealthComment on above:Performed By: #### BMP #### [facility] [address] [place] [address] [address] Narendra Mckinley RATE WESTERGRENon 40-31-0871CPG RATE25 mm/hrCritically high <=20The [facility]ma HealthComment on above:Performed By: #### SEDR #### [facility] [address] [place] [address] [address] Narendra Robb WITH REFLEX TO ENAon 10-28-8729RCE WITH REFLEX TO ENANegative NormalNEGATIVESaint Clare's Hospital at DenvilleComment on above:Performed By: #### CYNTHIA #### [facility] [address] [place], [place] [address]Q-ZUCTBDCT PROTEINon 27-58-5239GSA [Mass/Vol]mg/LNormalSaint Clare's Hospital at DenvilleComment on above:Result Comment: REF VALUE < 1.00Performed By: #### CRP #### [facility] [address] [place], [place] [address]KNPPSTPCEF ANTIBODYon 48-42-9660NMEDJEYSLB ANTIBODY<1NormalSaint Clare's Hospital at DenvilleComment on above:Result Comment: THE TEST FOR ANTIBODIES [...] >=3 U/MLPerformed By: #### CITAB #### [facility] [address] [place], [place] [address]MBD-H08 TYPINGon 38-45-4541NPB-B27 TYPINGNegativeNormalUH Care One At Raritan Bay Medical CenterComment on above:Result Comment: This test was developed without FDA review. The test performance characteristics were defined and validated by the [facility] Department of Pathology, under the accreditation guidelines of [facility].Performed By: #### HLB27 #### [facility] [address] [place], [place] [address]JXZCPWJKUD FACTORon 87-25-3284DRTSKBKTIN FACTOR<04Jmdtul0 - 15Saint [facility] at DenvilleComment on above:Performed By: #### RF #### [facility] [address] [place], [place] [address]MUZYURFEQNBMU RATE, ERYTHROCYTEon 51-44-8501LYWHPBVEJLSMF RATE, ERYTHROCYTE2 mm/hNormal0 - 20[facility] at DenvilleComment on above: Performed By: #### ESRWS #### [facility] [address] [place] [address] Vital Signs Date TimeVital SignValuePerforming DkkpkqbotQdskbtin52-18-5819 09:33-0400Body ozyxjj256.2 cmAnthony Cainher DPM Work Phone: [phone]08-11-2025 09:33-0400Body mass index (BMI) [Ratio]32.89 kg/t8Jfluiir Rusher DPM Work Phone: [phone]08-11-2025 09:33-0400Body mtbazj17.25 kgAnthdaniel Rusher DPM Work Phone: [phone]01-23-2025 15:33-0500Diastolic blood fubvvjnz21 mm[Hg]Cynthia Caro MD Work Phone: [facility]01-23-2025 15:33-0500Heart rate 91 /minCynthia Caro MD Work Phone: [facility]01-23-2025 15:33-0500Systolic blood nirwctwq838 mm[Hg]Cynthia Caro MD Work Phone: [facility]01-23-2025 15:31-0500Body tpauvm600.2 Luis Caro MD Work Phone: [facility] [employer] Zvgesn07-08-8673 15:31-0500Body mass index (BMI) [Ratio]33.14 kg/w4VrwymCynthia Caro MD Work Phone: [facility] [employer] Lrjvjj75-61-9574 15:31-0500Body jxzyji05.98 kgCynthia Caro MD Work Phone: [facility]10-17-2024 10:09-0400Diastolic blood mm[Hg]Cynthia Caro MD Work Phone: [facility]10-17-2024 10:09-0400Heart rate 83 /minCynthia Caro MD Work Phone: [facility]10-17-2024 10:09-0400Systolic blood yvdrpdio195 mm[Hg]Cynthia Caro MD Work Phone: [facility]10-17-2024 10:06-0400Body .2 Luis Caro MD Work Phone: [facility] [employer] Fchjnm76-37-5014 10:06-0400Body mass index (BMI) [Ratio]32.69 kg/x6AdmxbCynthia Caro MD Work Phone: [facility] [employer] Ulgktb90-26-4553 10:06-0400Body lzjzet96.67 kgCynthia Caro MD Work Phone: [facility]10-08-2024 11:10-0400Body mass index (BMI) [Ratio]32.58 kg/m2Sharon STEVENS Work Phone: [facility] CenterBjvbrlpzil48-26-0667 11:10-0400Body mtwtco19.35 kgSharon STEVENS Work Phone: [facility] CenterOlwpsttifb76-21-9358 11:10-0400Diastolic blood hipyptlk71 mm[Hg]Sharon STEVENS Work Phone: [phone] [place], [place] [address]Lmtjtaduik69-19-7643 11:10-0400Systolic blood bbmdwpye475 mm[Hg]Sharon Yo PA Work Phone: [facility] CenterUtbrbxrqfu29-02-8006 11:30-0400Body cuxqis307.2 Rachell Yo PA Work Phone: [facility] CenterZujcfzymfx94-46-6921 11:30-0400Body mass index (BMI) [Ratio]32.26 kg/m2Sharon Yo PA Work Phone: [facility] CenterEpehnffocx64-78-1156 11:30-0400Body fcsaap75.44 kgSharon Yo PA Work Phone: [facility] CenterFzlkwpnmuj46-40-1105 11:30-0400Diastolic blood mm[Hg]Sharon Yo PA Work Phone: [facility] CenterEuvksmlcbq49-86-8964 11:30-0400Systolic blood mm[Hg]Sharon Yo PA Work Phone: [facility] CenterMmcxozatek98-88-5832 09:05-0400Body hnhrka006.18 Matt Claros Other [employer] Other 09-09-2023 09:05-0400Body mass index (BMI) [Ratio] 29.19 kg/n5EqfsnValeria Claros Other [employer] Other 09-09-2023 09:05-0400Body uaoxjdxvdna12.5 [degF]Valeria Claros Other [employer] Other 09-09-2023 09:05-0400Body lqyult32.55 kgValeria Claros Other [employer] Other 09-09-2023 09:05-0400Diastolic blood mm[Hg] Valeria Claros Other [employer] Other 09-09-2023 09:05-0400Respiratory rate18 /minValeria Claros Other [employer] Other 09-09-2023 09:05-9656JmM2% (BldA) [Mass fraction]98 % Valeria Claros Other [employer] Other 09-09-2023 09:05-0400Systolic blood guskoqtb949 mm[Hg] Valeria Claros Other [facility] [employer] Other Encounters Encounter DateEncounter TypeCare ProviderFacilityStart: 07-26-2025 End: 42-38-2078tghbeohshlBpaqxyh R NILLFacility:[facility] HealthevueStart: 07-26-2025 End: 60-66-6002Ldetaca encounter procedureMichael R NILL [phone]-[facility]qlkiR[facility] [place] Start: 90-49-7677ctnhixwprjImogsjg NILLFacility:[facility] HealthKrissytart: 05-08-2025 End: 06-66-2777Iohwqr flowsheetAnthony S Rusher DPM Work Phone: [facility] PodiatryStart: 05-08-2025 End: 62-18-4582Emttep flowsheetAnthony S Rusher DPM Work Phone: noTranslimit Ardenvoir PodiatryStart: 05-08-2025 End: 88-34-9908Ifcmla outpatient new 30 minutesAnthony S Rusher DPM Work Phone: noColumbus [facility] Hospital PodiatryComment on above:Valgus deformity, not elsewhere classified, left ankle (Primary Dx); Posterior tibial tendinitis of left lower extremity; Posterior tibial tendinitis of right lower extremity; Instability of left ankle joint; Equinus contracture of left ankle; Difficulty walking; Sinus tarsi syndrome of left footStart: 05-08-2025 End: 68-20-1598aakwoihogyBLJAIOL S RUSHERNot AvailableStart: 10-20-2024 End: 17-11-3479Cunrqa outpatient visit 25 minutesCynthia Caro MD Work Phone: [facility] Comment on above:Autosomal dominant polycystic kidney disease (Primary Dx)Start: 10-19-2024 End: 98-63-2352Frwlwecqc encounterScanning Provider [facility]N [facility] HealthoStart: 10-14-2024 End: 90-31-9806Wbjimuxuw encounterBropearl Tena [facility] HealthoStart: 10-11-2024 End: 04-84-3611oweycvygqkQIGHZVi CARODoctors Hospital HospitalStart: 07-19-2024 End: 09-28-5029emrjoqvjatDUAHGRyan CARODoctors Hospital HospitalStart: 07-14-2024 End: 88-45-4578Grxpyg outpatient new 45 Rosalba Caro MD Work Phone: [facility] Comment on above:Autosomal dominant polycystic kidney disease (Primary Dx); PKD (polycystic kidney disease)Start: 07-13-2024 End: 84-26-8647byywyvtuyrKTULMVi CARODoctors Hospital HospitalStart: 07-06-2024 End: 54-82-6049Unndcmoql encounterHuma Tena [facility] HealthoStart: 07-05-2024 End: 76-58-9859Ozricd Diego STEVENS Work Phone: noMS BCP OBStart: 07-05-2024 End: 66-66-9559Doviiw Diego STEVENS Work Phone: [facility] BCP OBStart: 07-05-2024 End: 36-71-3749Olyyrmygd Result Justino STEVENS Work Phone: NOXH External Department UnsolicitedStart: 07-05-2024 End: 24-00-2906Rcbweou encounter procedureSharon STEVENS Work Phone: NOW[facility] HealthcareStart: 07-05-2024 End: 94-41-7754Thmmymdt preventive med est patient 18-39 yrsSharon STEVENS Work Phone: noms BCP OBComment on above:Well woman exam with routine gynecological examStart: 07-05-2024 End: 36-16-5030krblmsgsnbNIF RAMEYNot AvailableStart: 05-17-2024 End: 02-77-0488mbzvqamnifWZC RAMEYNot AvailableStart: 05-17-2024 End: 01-30-6915Zbskpyrhdd care visitSharon STEVENS Work Phone: noms BCP OBComment on above:6 weeks follow- up (Primary Dx)Start: 04-21-2024 End: 26-36-4399Xqdvoq Kelvin Caro MD Work Phone: [facility] Comment on above:PKD (polycystic kidney disease) (Primary Dx)Start: 04-18-2024 End: 68-79-5594Lfussnbrq encounterScanning Provider ExternalPHN [facility] Hospitaltart: 03-30-2024 End: 06-44-9488Zojxbzrcp Result EncounterCorey Shantell DO Work Phone: noms External Department UnsolicitedStart: 03-30-2024 End: 47-69-9781Ienmxiglj Result EncounterCorey Shantell DO Work Phone: noms External Department UnsolicitedStart: 03-23-2024 End: 91-91-2034Jqngzwmiz Result EncounterCorey Shantell DO Work Phone: noms External Department UnsolicitedStart: 03-23-2024 End: 48-90-5888Jpqsdfjbf Result EncounterCorey Shantell DO Work Phone: noms External Department UnsolicitedStart: 03-16-2024 End: 21-28-1237Qcqjaphvy Result EncounterCorey Shantell DO Work Phone: noms External Department UnsolicitedStart: 03-16-2024 End: 17-78-7008Lvligswio Result EncounterCorey Shantell DO Work Phone: noms External Department UnsolicitedStart: 03-01-2024 End: 69-97-0337Jebafolla Result EncounterCorey Shantell DO Work Phone: noms External Department UnsolicitedStart: 03-01-2024 End: 60-96-4071Bfmlsgmts Result EncounterCorey Shantell DO Work Phone: noms External Department UnsolicitedStart: 12-17-2023 End: 86-36-7419Hxcjtfwdx Result EncounterCorey Shantell DO Work Phone: noms External Department UnsolicitedStart: 12-17-2023 End: 84-30-4279Oxaecqumu Result EncounterCorey Shantell DO Work Phone: noms External Department UnsolicitedStart: 09-19-2023 End: 37-42-6125Gxrddbnsm Result EncounterCorey Shantell DO Work Phone: noms External Department UnsolicitedStart: 09-19-2023 End: 72-72-4304Rkrvbgncn Result EncounterCorey Shantell DO Work Phone: noms External Department UnsolicitedStart: 06-06-2023 End: 99-53-7513ijchqmozjvVsgdx Keller Other [facility] [employer] Other Start: 49-57-2320Fjkocb outpatient new 20 minutesAmber HarlanFPG Urgent Care ClydeStart: 12-17-2022 End: 01-13-2059rhvnvrfgpxNR JUAN C SHANTELL .Facility:G6Huvrc: 06-26-2022 End: 58-00-9272ozitldyjsvDP NONE LISTED REQUESTFacility:H1 Procedures DateProcedureProcedure DetailPerforming ClinicianStart: 05-08-2025 End: 73-61-9236Ifjkevmver examination ankle 2 viewsAnthony S Rusher DPM Work Phone: Start: 15-79-3889Rkaskvqhfk examination ankle 2 views Db Crockett DPM Work Phone: Start: 68-98-7807QIM,APTIMA HPV,AGE GDLNAmy Alex PA Work Phone: Start: 46-20-9175Htgwjnagklf observation [Identifier] in Cervix by Cyto Nasim Caro MD Work Phone: Start: 32-13-2522UHI URINE T PROTEIN CREAT RATIOCorey Shantell DO Work Phone: Start: 05-23-4284OZS BUNCorey Shantell DO Work Phone: Start: 87-66-6908RTK CBC WITH AUTO DIFFCorey Shantell DO Work Phone: Start: 65-26-1160UES URIC ACIDCorey Shantell DO Work Phone: Start: 90-22-1923RCX ALTCorey Shantell DO Work Phone: Start: 21-02-3440RPL APTTCorey Shantell DO Work Phone: Start: 29-97-3756WEW ASTCorey Shantell DO Work Phone: Start: 35-76-4899SPGD FIBRINOGENCorey Shantell DO Work Phone: Start: 94-76-1903JWPRRZ PROTHROMBIN TIME INR W/O COUM Juan C Shantell DO Work Phone: Start: 42-18-9345MRW CREATININECorey Shantell DO Work Phone: Start: 70-15-3329GUY DRUG SCREEN RAPID (URINE)Juan C Shantell DO Work Phone: Start: 40-43-0490ZH OB GROWTHCorey Shantell DO Work Phone: Start: 51-22-4613GT OB BPP W NON-STRESSCorey Shantell DO Work Phone: Start: 13-11-3353IZ OB BPP W NON-STRESSCorey Shantell DO Work Phone: Start: 60-82-5112DJ OB BPP W NON-STRESSCorey Shantell DO Work Phone: Start: 34-52-9210LW OB GROWTHCorey Shantell DO Work Phone: Start: 11-35-4904LI OB ANATOMYCorey Shantell DO Work Phone: Start: 58-38-1515IC OB CERVICAL LENGTHCorey Shantell DO Work Phone: Start: 74-13-6637DS OB TRANSVAGINALCorey Shantell DO Work Phone: Start: 14-27-6639VyghuwrwlbzRwzsyyk NILL Start: 46-40-5776EwogtjbcpxohfomkfkwxnojtkuKyojpaz NILL Excision of lipoma of backMichael NILL LaparoscopyMichael NILL Tonsillectomy and adenoidectomyMichael NILL Plan of Treatment DateCare ActivityDetailAuthorStart: 23-07-2868EBtK,Tdap and Td Vaccines (2 - Tdap)DTaP,Tdap and Td Vaccines (2 - Tdap)[facility] SystemStart: 73-85-4570Vlghvorfc for malignant neoplasm of cervixPap SmearProMedica [employer] SystemStart: 08-09-2025 End: 70-62-9308Putfpel encounter sfykqkzxq55/12/2025 3:00 PM EST Procedure Visit [facility] [address] [place] [id number] Sharon Yo PA [address] [place] [address] JOSE Elkins OBGYNStart: 10-71-5558Cqxzt BMI ScreeningAdult BMI ScreeningAtrium Health Lincolntart: 05-08-2025 End: 42-32-0491Wjwotqhuhgtl / ancillary services managementNOColumbus Community Hospital Podiatry Start: 05-08-2025 End: 90-03-4903Qyboyro encounter zaxusrekq10/11/2025 9:30 AM EDT Office Visit [facility] [address] [place] [address] Db Crockett, DPSamuel [address] [place] [address] ArrivedNOColumbus Community Hospital PodiatryComment on above:ArrivedStart: 04-14-2025 End: 31-88-1583Adosy metabolic 2000 panel - Serum or PlasmaBasic Metabolic Panel Lab Routine Autosomal dominant polycystic kidney disease Expected: 04/14/2025 (Approximate), Expires: 10/15/2025[facility] Work Phone: Comment on above:Expected: 04/14/2025 (Approximate), Expires: 10/15/2025Start: 04-14-2025 End: 66-10-0966PBE panel - Blood by Automated countCBC without diff Lab Routine Autosomal dominant polycystic kidney disease Expected: 04/14/2025 (Approximate), Expires: 10/15/2025[facility] SystemComment on above:Expected: 04/14/2025 (Approximate), Expires: 10/15/2025Start: 04-14-2025 End: 30-12-8232Lqhehrlqo [Mass/volume] in Serum or PlasmaMagnesium Lab Routine Autosomal dominant polycystic kidney disease Expected: 04/14/2025 (Approximate), Expires: 10/15/2025Pro[facility] SystemComment on above:Expected: 04/14/2025 (Approximate), Expires: 10/15/2025Start: 04-14-2025 End: 53-50-2650Okqhfcvvzvk Hormone, intactParathyroid Hormone, intact Lab Routine Autosomal dominant polycystic kidney disease Expected: 04/14/2025 (Approximate), Expires: 10/15/2025[facility] SystemComment on above: Expected: 04/14/2025 (Approximate), Expires: 10/15/2025Start: 04-14-2025 End: 01-49-8157Ruweyqbfi [Mass/volume] in Serum or PlasmaPhosphorus Lab Routine Autosomal dominant polycystic kidney disease Expected: 04/14/2025 (Approximate), Expires: 10/15/2025Pro[facility] SystemComment on above:Expected: 04/14/2025 (Approximate), Expires: 10/15/2025Start: 04-14-2025 End: 30-10-6623Cdvjmzx creat ratioProtein creat ratio Lab Routine Autosomal dominant polycystic kidney disease Expected: 04/14/2025 (Approximate), Expires: 10/15/2025[facility] SystemComment on above:Expected: 04/14/2025 (Approximate), Expires: 10/15/2025Start: 04-14-2025 End: 93-19-9999Vnugjin D 25 hydroxyVitamin D 25 hydroxy Lab Routine Autosomal dominant polycystic kidney disease Expected: 04/14/2025 (Approximate), Expires: 10/15/2025[facility] SystemComment on above:Expected: 04/14/2025 (Approximate), Expires: 10/15/2025Start: 10-20-2024 End: 46-00-9623Urzhglw encounter ppzwhnted19/23/2025 3:30 PM EST Office Visit [facility] [address] [place] [id number] Cynthia Caro MD [address] [place] [address] [facility] Hospitaltart: 09-08-2024 End: 93-70-1367Xccza metabolic 2000 panel - Serum or PlasmaBasic Metabolic Panel Lab Routine Autosomal dominant polycystic kidney disease Expected: 09/08/2024, Expires: [facility]/2025[facility]:Expected: 09/08/2024, Expires: 07/09/2025Start: 09-08-2024 End: 03-62-1417FZK panel - Blood by Automated countCBC without diff Lab Routine Autosomal dominant polycystic kidney disease Expected: 09/08/2024, Expires: 07/09/2025[facility] SystemComment on above:Expected: 09/08/2024, Expires: 07/09/2025Start: 09-08-2024 End: 50-23-6009Cgeuafiak [Mass/volume] in Serum or PlasmaMagnesium Lab Routine Autosomal dominant polycystic kidney disease Expected: 09/08/2024, Expires: [facility] SystemComment on above:Expected: 09/08/2024, Expires: 07/09/2025Start: 09-08-2024 End: 45-28-9053Jzuilomvqfw Hormone, intactParathyroid Hormone, intact Lab Routine Autosomal dominant polycystic kidney disease Expected: 09/08/2024, Expires: 07/09/2025[facility] SystemComment on above:Expected: 09/08/2024, Expires: 07/09/2025Start: 09-08-2024 End: 41-71-8176Rfoejhvxu [Mass/volume] in Serum or PlasmaPhosphorus Lab Routine Autosomal dominant polycystic kidney disease Expected: 09/08/2024, Expires: 1 [facility] SystemComment on above:Expected: 09/08/2024, Expires: 07/09/2025Start: 09-08-2024 End: 17-87-6682Soqrila creat ratioProtein creat ratio Lab Routine Autosomal dominant polycystic kidney disease Expected: 09/08/2024, Expires: 07/09/2025 [facility] SystemComment [facility] above:Expected: 09/08/2024, Expires: 07/09/2025Start: 09-08-2024 End: 68-73-0618Fwlajir D 25 hydroxyVitamin D 25 hydroxy Lab Routine Autosomal dominant polycystic kidney disease Expected: 09/08/2024,Expires: 07/09/2025 [facility] SystemComment on above:Expected: 09/08/2024, Expires: 07/09/2025Start: 07-21-2024 End: 02-89-6161KYT Abdominal vessels WO contrastMRA abdomen without contrast Imaging Routine Autosomal dominant polycystic kidney disease Expected:07/21/2024 (Approximate), Expires: 07/14/2025[facility] SystemComment on above: Expected: 07/21/2024 (Approximate), Expires: 07/14/2025Start: 07-16-2024 End: 66-72-1137WQO Screen w/ ReflexANA Screen w/ Reflex Lab Routine Autosomal dominant polycystic kidney disease Expected: 07/16/2024 (Approximate), Expires: 07/09/2025[facility] SystemComment on above:Expected: 07/16/2024 (Approximate), Expires: 07/09/2025Start: 07-16-2024 End: 36-58-1242Eysm light chainsFree light chains Lab Routine Autosomal dominant polycystic kidney disease Expected: 07/16/2024 (Approximate), Expires: 07/09/2025[facility] SystemComment on above:Expected: 07/16/2024 (Approximate), Expires: 07/09/2025Start: 07-16-2024 End: 33-49-7726Tyvyuzxhxp basement membrane IgG ABGlomerular basement membrane IgG AB Lab Routine Autosomal dominant polycystic kidney disease Expected: 07/16/2024 (Approximate), Expires: 07/09/2025[facility] SystemComment on above:Expected: 07/16/2024 (Approximate), Expires: 07/09/2025Start: 07-16-2024 End: 70-49-1165Fruyowagq B core antibody, totalHepatitis B core antibody, total Lab Routine Autosomal dominant polycystic kidney disease Expected:07/16/2024 (Approximate), Expires: 07/09/2025[facility] SystemComment on above: Expected: 07/16/2024 (Approximate), Expires: 07/09/2025Start: 07-16-2024 End: 16-29-4767Wnphedjje B Surface Antibody QuantitationHepatitis B Surface Antibody Quantitation Lab Routine Autosomal dominant polycystic kidney disease E xpected: 07/16/2024 (Approximate), Expires: 07/09/2025[facility] Comment on above:Expected: 07/16/2024 (Approximate), Expires: 07/09/2025Start: 07-16-2024 End: 88-10-5600Ceylfhybw B surface antigenHepatitis B surface antigen Lab Routine Autosomal dominant polycystic kidney disease Expected: 07/16/2024 (Approximate), Expires: 07/09/2025[facility] SystemComment on above: Expected: 07/16/2024 (Approximate), Expires: 07/09/2025Start: 07-16-2024 End: 12-67-7340Xahwewore C(HCV) Ab w/ Reflex to PCRHepatitis C(HCV) Ab w/ Reflex to PCR Lab Routine Autosomal dominant polycystic kidney disease Expected: 07/16/2024 (Approximate), Expires: 07/09/2025[facility] SystemComment on above:Expected: 07/16/2024 (Approximate), Expires: 07/09/2025Start: 07-16-2024 End: 63-86-7446QWU 1&2 AB/AG Screen (P24 AG)HIV 1&2 AB/AG Screen (P24 AG) Lab Routine Autosomal dominant polycystic kidney disease Expected: 07/16/2024 (Approximate), Expires: 07/09/2025[facility] SystemComment on above: Expected: 07/16/2024 (Approximate), Expires: 07/09/2025Start: 07-16-2024 End: 53-63-7829Osgymtqgpofftic ABMyeloperoxidase AB Lab Routine Autosomal dominant polycystic kidney disease Expected: 07/16/2024 (Approximate), Expires: 07/09/2025[facility] SystemComment on above:Expected: 07/16/2024 (Approximate), Expires: 07/09/2025Start: 07-16-2024 End: 59-66-7930Demjispifv 3 AB UX3Wgsdsvnwjv 3 AB PR3 Lab Routine Autosomal dominant polycystic kidney disease Expected: 07/16/2024 (Approximate), Expires: 07/09/2025[facility] SystemComment on above:Expected: 07/16/2024 (Approximate), Expires: 07/09/2025Start: 07-16-2024 End: 10-53-9266ZY RetroperitoneumUltrasound retroperitoneal complete Imaging Routine Autosomal dominant polycystic kidney disease Expected: 07/16/2024 (Approximate), Expires: 09/08/2024[facility] Work Phone: Comment on above:Expected: 07/16/2024 (Approximate), Expires: 09/08/2024Start: 07-14-2024 End: 95-82-6823Jonzbml encounter procedurePHN [facility]remontStart: 07-05-2024 End: 88-63-2047Zqarxco encounter procedureNOMS BCP OBComment on above:Arrived Start: 27-97-5987Icjajhkzo vaccinationInfluenza VaccineAvita Health System Start: 01-35-2175Lhogpqiqe for malignant neoplasm of cervixPap SmearSt. Rita's Hospital SystemStart: 81-60-2521XOfS,Tdap and Td Vaccines (1 - Tdap)DTaP,Tdap and Td Vaccines (1 - Tdap)[facility]art: 84-46-7024Qqoxn BMI Follow Up PlanAdult BMI Follow Up PlanAtrium Health Lincolntart: 53-19-4331Qkzcz BMI ScreeningAdult BMI ScreeningAtrium Health Lincolntart: 06-58-4220Gisokzofld ScreeningDepression ScreeningAtrium Health Lincolntart: 66-17-6141Todpisb ScreeningTobacco ScreeningAvita Health System End: 38-15-0799Tkjfg metabolic 2000 panel - Serum or PlasmaBasic Metabolic Panel Lab Routine PKD (polycystic kidney disease) 1 Occurrences starting 04/21/2024 until 04/21/2025[facility] Work Phone: Comment on above:1 Occurrences starting 04/21/2024 until 04/21/2025 End: 77-40-6831MUU panel - Blood by Automated countCBC without diff Lab Routine PKD (polycystic kidney disease) 1 Occurrences starting 04/21/2024 until 04/21/2025[facility] SystemComment on above:1 Occurrences starting 04/21/2024 until 04/21/2025ytology Cervical or vaginal smear or scraping study Pap Smear Pathology and Cytology Routine Well woman exam with routine gynecological exam Ordered: 07/05/2024[facility] [employer] Work Phone: comment on above:Ordered: 07/05/2024 End: 68-63-8130Rzqgmjcrzyg Neutrophilic Ab, SCytoplasmic Neutrophilic Ab, S Lab Routine Autosomal dominant polycystic kidney disease 1 Occurrences starting 07/14/2024 until 07/09/2025[facility] SystemComment on above:1 Occurrences starting 07/14/2024 until 07/09/2025 End: 05-09-2633Cmcrjvigf [Mass/volume] in Serum or PlasmaMagnesium Lab Routine PKD (polycystic kidney disease) 1 Occurrences starting 04/21/2024 until 2024ProHenry County HospitalComment on above:1 Occurrences starting 04/21/2024 until 04/21/2025 End: 91-87-8329Gzqijfohd [Mass/volume] in Serum or PlasmaPhosphorus Lab Routine PKD (polycystic kidney disease) 1 Occurrences starting 04/21/2024 until 04/21[facility] SystemComment on above:1 Occurrences starting 04/21/2024 until 04/21/2025 End: 71-07-6348Faqlznb creat ratioProtein creat ratio Lab Routine PKD (polycystic kidney disease) 1 Occurrences starting 04/21/2024 until 04/21/2025 [facility] SystemComment on above:1 Occurrences starting 04/21/2024 until 04/21/2025 End: 60-54-9669Odwlx ImmunofixationSerum Immunofixation Lab Routine Autosomal dominant polycystic kidney disease 1 Occurrences starting 07/14/2024 until 07/09/2025[facility] SystemComment on above:1 Occurrences starting 07/14/2024 until 07/09/2025 End: 64-49-6085ZlpinhmjoeCpduabkrhk Lab Routine Autosomal dominant polycystic kidney disease 1 Occurrences starting 10/20/2024 until 10/15/2025ProMi[facility] Hospital SystemComment on above:1 Occurrences starting 10/20/2024 until 10/15/2025 End: 17-15-0279GhcaotnmqqNmzuxrkcxc Lab Routine PKD (polycystic kidney disease) 1 Occurrences starting 04/21/2024 until 04/21/2025ProMi[facility] Hospital SystemComment on above:1 Occurrences starting 04/21/2024 until 04/21/2025 End: 08-05-5180ZcqvrnvgxrFqbgksdpvc Lab Routine Autosomal dominant polycystic kidney disease 1 Occurrences starting 07/14/2024 until 07/09/2025Pro[facility] SystemComment on above:1 Occurrences starting 07/14/2024 until 07/09/2025 Immunizations Immunization DateImmunizationNotesCare VihutdpdEdnwzint22-13-3034lbufeoypx virus vaccine, unspecified formulationCynthia Caro MD Work Phone: [facility] Payers DatePayer CategoryPayerPolicy [id number] Health Insurance [id number] Health Insurance [id number] Cross Blue Shield Managed Care - [place] [address] [id number] [id number]411.13472-61-0150Jexvwjk 1.2.840.108022.1.13.693.2.7.3.378[id number] 2.16.840.1.650575.3.57[id number] 2.16.840.1.091933.3.57[id number] 2.16.840.1.303754.3.57[id number] 2.840.1.779470.3.57[id number] 2.16.840.1.156270.3.57[id number] 2.16.840.1.327026.3.57[id number] 2.840.1.344896.3.57[id number] 2.16840.1.274898.3.57[id number] 2.16.840.1.024394.3.57[id number] 2.16840.1.746207.3.57[id number] 2.840.1.431947.3.57[id number] 2.16840.1.826192.3.57[id number] 2.840.1.744338.3.579.[id number] Social History DateTypeDetailFacilityUnknown if ever smokedNoJukely Other Start: 09-14-2023 End: 64-52-7039[facility] End: 14-03-7565Zofbsqh smoking status NHISNever smoked tobaccoM[facility]AIN[facility] Start: 75-21-1493Mgdcihg use and exposureSmokeless tobacco non-userNOMS HealthcareStart: 03-15-2024 End: 22-51-0166Oiqsfdkmm beverage intakeEx-drinker (finding)[facility] Start: 09-14-2023 End: 92-38-4692Rouijeo of Social functionNOMS HealthcareStart: 17-58-5876Arukfxd CommentOnly on special occasionsNOMS HealthcareStart: 60-58-5003Ain assigned at [facility] hospitalNot on fileAvita Health SystemTobacc smoking status NHISTobacco smoking consumption unknownSt. Rita's Hospital SystemStart: 48-78-1840WzrOxaknj (finding)[facility] [employer] SystemStart: 45-51-5556Ojqiiko smoking statusNever [facility] General Surgery [facility] Systemexual OrientationPremier Health [facility] Surgery [place] Start: 08-23-2023 End: 27-68-1072Lbfmjzzt to SARS-CoV-2 (event)[facility] Clinical Notes 06-06-2023 to 07-26-2025 Note Date & AjmsAulhRyzdfwwn87-76-9092 NoteGeneral Surgery Office/Clinic Note Chief Complaint consultation [...] Mother. Polycystic kidney disease: Mother. Rheumatoid arthritis: Mother.[facility]acon[facility] HospitalComment on above:Result Comment: Electronically Signed By: SITA RUVALCABA, Yessenia Sanchez\Date and Time Signed: 07/26/25 16:00 [id number] History of Present illness Narrative* Db Crockett [...] 30-39.9) Other specified related conditions, unspecified trimester ([facility]) Ovarian cyst PCK (polycystic kidney disease) TMJ [...] stresses across the midfoot. Patient has an uldq-jxb-myadyhu insert in her shoe today that is [...] understanding. 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 Please contact me at [phone] (Office) or [phone] (Answering service) with any questions. CYNTHIA CARO MD [facility] This note was created with the assistance of a speech-recognition program. Although the intention is to generate a document that actually reflects the content of the visit, no guarantees can be provided that every mistake has been identified and corrected by editing. CYNTHIA CARO MD,PhD FACP [facility] ANY QUESTIONS FEEL FREE TO CALL: 1. OFFICE [phone] 2. ANSWERING SERVICE: [phone] documented in this encounterAvita Health System01-22-2025 Miscellaneous Notes* Telephone Encounter - Eva Moura - 10/19/2024 11:48 AM EST LM to see if pt could come in at 8:30 am tomorrow instead of 3:30 pm. documented in this encounterAvita Health System01-22-2025 Telephone encounter Note* Telephone Encounter - Eva Moura - 10/19/2024 11:48 AM EST LM to see if pt could come in at 8:30 am tomorrow instead of 3:30 pm. [facility]01-17-2025 Miscellaneous Notes* Telephone Encounter - Huma Tena CMA - 10/14/2024 3:33 PM EST Left message for patient to call the office back to confirm upcoming appointment 10/20 at 3:[address] Caro in [place] documented in this [facility]01-17-2025 Telephone encounter Note* Telephone Encounter - Huma Tena CMA - 10/14/2024 3:33 PM EST Left message for patient to call the office back to confirm upcoming appointment 10/20 at 3:[address] [place] [facility] Seytdi54-52-5949 History of Present illness Narrative* Cynthia Caro [...] results found for: IRONSAT , FERRITIN , WQFBPVTP96 , FOLATE Mineral and Bone Labs: Lab [...] of your patients! Please contact me at [phone] (Office) or [phone] (Answering service) with any questions. CYNTHIA CARO MD [facility] This note was created with the assistance of a speech-recognition program. Although the intention is to generate a document that actually reflects the content of the visit, no guarantees can be provided that every mistake has been identified and corrected by editing. CYNTHIA CARO MD,PhD FACP [facility] ANY QUESTIONS FEEL FREE TO CALL: 1. OFFICE [phone] 2. ANSWERING SERVICE: [phone] documented in this encounterThe Bellevue HospitalPint Please [facility] HospitalZzxwgr35-85-6830 Miscellaneous Notes* Telephone Encounter - Huma Tena CMA - 07/06/2024 4:02 PM EDT Left voicemail for patient to return call to confirm upcoming appointment on 07/14 at 10:[address] Caro in [place] and Informed patient lab work need completed prior to uncoming appointment * Telephone Encounter - Eva Moura - 07/06/2024 4:02 PM EDT Pt called back and confirmed appt. Nephro- Delashi? ([facility] probably 5 or more years ago) Other Spec- No Echo- [place] possibly Abd Img- No Labs- Going to [facility] 07/13/24 Reminders- Given documented in this encounterAvita Health System10-09-2024 Telephone encounter Note* Telephone Encounter - Huma Tena CMA - 07/06/2024 4:02 PM EDT Left voicemail for patient to return call to confirm upcoming appointment on 07/14 at 10:[address] Caro in [place] and Informed patient lab work need completed prior to uncoming appointment [facility]10-09-2024 Telephone encounter Note* Telephone Encounter - Eva Moura - 07/06/2024 4:02 PM EDT Pt called back and confirmed appt. Nephro- Delashi? ([facility] probably 5 or more years ago) Other Spec- No Echo- [place] possibly Abd Img- No Labs- Going to [facility] 07/13/24 Reminders- Given [facility]10-08-2024 History of Present illness Narrative* HILDA Rebolledo [...] nursing note reviewed. Exam conducted with a owner/operator present. Vitals: Estimated body mass index is [...] behalf of: HILDA Rebolledo documented in this encounterSaint Joseph Health CenterTjigfzdlqa33-80-2158 History of Present illness Narrative* HILDA Rebolledo [...] behalf of: HILDA Rebolledo documented in this encounterSaint Joseph Health CenterBcvkivihiz10-09-8657 Miscellaneous Notes* Telephone Encounter - Eva Moura - 04/18/2024 9:31 AM EDT LM to schedule new pt appt. documented in this encounterAvita Health System07-22-2024 Telephone encounter Note* Telephone Encounter - Eva Zeny - 04/18/2024 9:31 AM EDT LM to schedule new pt appt. [facility]06-04-2024 Miscellaneous Notes* Result Encounter Note - Randi Arteaga LPN - 03/01/2024 12:47 PM EDT Pt notified and is going to schedule growth scan for two weeks. She is also going to schedule for NST/BPP documented in this encounterSaint Joseph Health CenterUjauwnfeek63-14-6906 Progress note* Result Encounter Note - Randi Arteaga LPN - 03/01/2024 12:47 PM EDT Pt notified and is going to schedule growth scan for two weeks. She is also going to schedule for NST/BPP [facility] [employer] Work Phone: [phone]) 737-866209-09-2023 Evaluation note* Encounter Date Diagnosis Assessment Notes [...] understanding and is agreeable with treatment plan [employer] Other Evaluation note* Diagnosis Well woman exam with routine gynecological exam Routine gynecological examination documented in this encounter [facility] HealthcareEvaluation note* Diagnosis 6 weeks follow-up- Primary [...] removed off backSurgical Historywisdom teeth extract Surgical Gdksfdenquebeolrtzn1676Vwotiftg Uzrqklamrxioztegdf0609Ikbwsbroljzhvld HistoryHTNHospitalization HistorymigraineHospitalization Historychild ectjj2314 [employer] Other Hospital course Narrative No data available for this section [facility] General Surgery [place] [facility] Discharge instructions No data available for this section [facility] General Surgery [place] InstructionsNot on filedocumented in this encounter [facility] SystemInstructionsNot on filedocumented in this encounter [facility] SystemInstructionsNot on filedocumented in this encounter [facility] SystemProgress note No data available for this section [facility] General Surgery [place] Reason for visit Narrative* Consultation (Routine) - Pending ReviewSpecialtyDiagnoses / ProceduresReferred By ContactReferred To ContactNephrology Diagnoses PKD (polycystic kidney disease) Jay Sadler MD Phone: tel:[phone] fax: PHN [facility] [address] [place] [address] Phone: tel: fax: Referral IDStatusReasonStart DateExpiration DateVisits RequestedVisits [id number] Review Specialty Services Required [facility] Summary Purpose Family History No Family History [...] section and content) DATE CREATED AUTHOR 07/19/2019 [facility] DATE CREATED AUTHOR AUTHOR'S ORGANIZ ATION 12/29/2022 [facility] DATE CREATED AUTHOR AUTHOR'S ORGANIZ ATION 10/15/[address] [facility] DATE CREATED AUTHOR AUTHOR'S ORGANIZ ATION 05/09/2025 [facility] DATE CREATED AUTHOR AUTHOR'S ORGANIZ ATION 07/28/2025 [facility] REASON FOR VISIT (unrecogniz ed section and [...] DateEnd Date Jay Sadler MD [address] [place] [address] PCP - GeneralFamily Ljirkxaj73/2/23Team MemberRelationshipSpecialtyStart DateEnd Date Jay Sadler MD [address] [place] [place] [address] PCP - GeneralFamily Lapixjaw07/2/23Team MemberRelationshipSpecialtyStart DateEnd Date Jay Sadler MD [address] [place] [place] [address] PCP - GeneralFamily Dkuichjt90/2/23Team MemberRelationshipSpecialtyStart DateEnd Date Jay Sadler MD [address] [place] [facility] [address] PCP - GeneralFamily Yoehfrct73/2/23Team MemberRelationshipSpecialtyStart DateEnd Date Jay Sadler MD [address] [facility] [address] PCP - GeneralFamily Mgihzpya08/16/24Team MemberRelationshipSpecialtyStart Date End Date Jay Sadler MD [address] [facility] [address] PCP - GeneralFamily Hsqcgomp39/16/24Team MemberRelationshipSpecialtyStart Date End Date Jay Sadler MD [address] [facility] [address] PCP - GeneralFamily Iultpfsm82/16/24Team MemberRelationshipSpecialtyStart Date End Date Jay Sadler MD [address] [facility] [address] PCP - GeneralFamily Edtqomcn93/16/24Team MemberRelationshipSpecialtyStart Date End Date Jay Sadler MD [address] [place] [facility] [place] [address] PCP - GeneralmiPhoebe [facility]04/19/25Team MemberRelationshipSpecialtyStart DateEnd Date Jay Sadler MD [address] [place] [facility] [place] [address] PCP - [facility]04/19/25Team MemberRelationshipSpecialtyStart DateEnd Date Jay Sadler MD [address] [place] [facility] [place] [address] PCP - [facility]04/19/25Team MemberRelationshipSpecialtyStart DateEnd Date Jay Sadler MD [address] [place] [facility] [place] [address] PCP - [facility]04/19/25Team MemberRelationshipSpecialtyStart DateEnd Date Jay Sadler MD [address] [place] [address] PCP - [facility]04/19/25 FOR RECORDS PERTAINING TO PATIENTS WHO [...] BE BASED ON THE PRIMARY CLINICAL RECORDS. [facility]. provides no warranty or guarantee of the accuracy or completeness of information in this document.
--- OUTSIDE RECORDS SUMMARY | 2025-08-10 12:28 | XMS_ITS | Clinical Summary ---
Author Organization [facility] Address [address] [place] [address] Phone Care Team Providers Care Mechanical Oxidizer Name Role Phone Jay Sadler MD Primary Care Provider [phone] Social History Tobacco UseTypesPacks/DayYears UsedDateSmoking Tobacco: Never Assessed CommentsUnknownSex and Gender InformationValueDate RecordedSex Assigned at Not on fileLegal PyxTiuzme65/26/2022 4:22 AM ESTGender IdentityNot on fileSexual OrientationNot on file Plan of Treatment Not on file Care Teams Team MemberRelationshipSpecialtyStart DateEnd Date Jay Sadler MD [address] [place] [address] PCP - General04/28/19
--- OUTSIDE RECORDS SUMMARY | 2025-08-10 12:28 | XMS_ITS | Patient Health Record ---
Author Organization [facility] [place] Address [address] [place] [address] Care Team Providers Care Recreational Counselor Name Role Phone Yoav Sadler Primary Care Provider Allergies No Known Allergies Results Component Value Reference Range Notes XR HAND RT MIN 3V Reviewed date:10/25/2024 04:54:22 PM Interpretation: Performing Lab: Notes/Report: Source Facility: [place] [address] XRay Report Signed Patient: AALIYAH CARVALHO MR#: [id number] : 1995 Acct:[id number] Age/Sex: 29 / F ADM Date: 10/24/24 Loc: [facility] Attending Dr: Sidney Gottlieb M.D. Ordering Physician: Sidney Gottlieb M.D. Date of Service: 10/24/24 Procedure(s): XR hand RT min 3V Accession Number(s): [id number] cc: Sidney Gottlieb M.D.; Jay Sadler M.D. [facility] [place] [id number] Patient Name: AALIYAH CARVALHO MRN: [id number] date: 1995 Sex: F Assigned Patient Location: EC Current Patient Location: Accession/Order Number: [id number] Exam Date: 10/24/2024 11:10 Report Date: 10/25/2024 [...] Delcid M.D. Signed By: 10/25/2438 DD/ TD/TT: Film And Video Editor: Reason For Referral Reason possibel ganglion [facility] on palm Diagnosis 1 Left hand pain (M79. 642) Referral Organization [facility] Referring Provider First Name Yoav Referring Provider Last Name Viktoriya Referring Provider [facility] deejay Referred Provider Sidney Gottlieb Referred Provider Specialty Orthopedic S urgery Referral Priority Routine Reason blood in stool Diagnosis 1 Sacral pain (M53.3) Referral Organization [facility] Referring Provider First Name Yoav Referring Provider Last Name Viktoriya [facility] Referred Provider Vini Combs Referred Provider Specialty General Surg umesh Referral Priority Routine Social History Tobacco Use: Social History Observation Description Date Details (start date - stop date) Never Smoker NA - NA Tobacco Use/Smoking Question Answer Notes Patient is a nonsmoker Alcohol Screen (Audit-C) Question Answer Notes Did you have a drink containing alcohol in the p ast year? No Ldgszl6PqqldayvbnetpnNwxxzafoDUQQJ-P (Standard) Question Answer Notes Did you have a drink containing alcohol in the p ast year? No Eerzth8YqtgdlowjeujkcJqzqrcaq Problems Problem Type SNOMED Code ICD Code Onset Dates Problem Status W/U Status Risk Notes Problem Chronic serous otiti s media (76181805) Chronic serous otitis media, unspecified ear (H65.20) ActiveconfirmedProblemPolycystic kidney disease (18412348)Polycystic kidney, unspecified (Q61.3)ActiveconfirmedProblemWart (66742829)Wart (B07.9)Active confirmedProblemHypertension (68302803)Hypertension (I10)ActiveconfirmedProblem Gastroesophageal reflux disease (843792234)GERD (gastroesophageal reflux disease) (K21.9)ActiveconfirmedProblemAnxiety (60356080)Anxiety (F41.9)Active confirmedProblemMigraine (11947111)Migraine (G43.909)ActiveconfirmedProblem Arthralgia (96396669)Arthralgia (M25.50)ActiveconfirmedProblemPain of left hand (112004042213264)Left hand pain (M79.642)ActiveconfirmedProblemDeviated nasal septum (810331108)Deviated septum (J34.2)ActiveconfirmedProblemPain of right hand (788406605462859)Pain of right hand (M79.641)ActiveconfirmedProblemAcute bronchiolitis (6693716)Acute bronchiolitis (J21.9)ActiveconfirmedProblemSacral back pain (32900396)Sacral back pain (M53.3)ActiveconfirmedProblemPain in sacrum (finding) (9544361856)Sacral pain (M53.3)Activeconfirmed Vital Signs Blood pressure diastolic 64 mm Hg 07/03/2025 Ppcvtb88 in07/03/2025lood pressure viaqivny116 mm Hg07/03/20257222Nsrcka852.2 lbs 07/03/2025BMI33.92 kg/m207/03/2025 Encounters Encounter Location Date Provider Diagnosis [facility] [address] [place] [address] 07/14/2025 Yoav Hoy Sacral back pain M53 .3 [facility] [address] [place] [address] 07/18/2025 Yoav Hoy [facility] [place] [address] 07/03/2025[facility]53.[facility] [place] [address]/12/2024oug HoyLeft hand pain M79.642 Assessments Encounter Date [...] Date Coverage End Date [employer] [id number] [facility] [place] [phone] [id number] Desiree Carvalhoelf - patient is the insured Medical (General) History Medical History History ICD Code COVID-19 U07.1 Anxiety F41.9 Insomnia G47.00 Arthralgia M25.50 GERD (gastroesophageal reflux disease) K 21.9 Hypertension I10 Polycystic kidney disease, autosomal dom inant Q61.2 Sleep apnea G47.30 Surgical History Surgery Date(Month/Year) Colonoscopy & EGD Laproscopy Fatty Tumor Removal x8- nmya4069ZDBIAKEOATXGP,UNDER 12YRSHospitalization History Reason Date(Month/Year) Child
== END 2025-08-10 12:24 | disposition home or self-care (01) ==
LOC: MRI 12:23
PROVIDERS: PCP Family Medicine; Visit Provider Family Medicine
DX: M53.3 Sacrococcygeal disorders, not elsewhere classified (principal)
CPT/HCPCS: 72195; 72197

== ENCOUNTER 2025-08-14 11:56 | Outpatient (OUT) | payer OTHER, SELFPAY ==
--- OUTSIDE RECORDS SUMMARY | 2025-08-14 12:01 | XMS_ITS | CCD ---
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 Name Role Phone REQUEST, DR NONE LISTED Primary Care Unavaila jessica ARVIZU, DR RAMONA Ramirez Admitting Unavailable NOLBEROT, DR RAMONA Ramirez Attending Unavailable NOLBERTO, DR [...] Care Unavailable Unavailable Primary Care Provider UnavailJay oLoney MD Primary Care Provider [phone] DB CROCKETT Attending Unavailable DB CROCKETT Referring Unavailable DB CROCKETT Referring Unavailable SHARON YO Attending Unavailable SHARON YO Attending Unavailable Jay Sadler Primary Care Physician Jay Sadler MD Primary Care Provider [phone] Yessenia BUCKNER Attending Unavailable Jay Sadler Referring Unavailable Allergies Allergy ClassificationReported Allergen(s)Allergy TypeDate of OnsetReaction(s) Facility (1 source)RaspberryPropensity to adverse reactionstingles, and itchesNorth JUNTA.CL Other (17 sources)raspberry allergenic extract; Translations: [RASPBERRY]Drug Allergy 84-82-7121SpanntlJJYHSt. Jude [facility] Work Phone: (4 sources)raspberry extractDrug Rcyvjos40-40-5770OhclnpwWjtTvlynx Health System (1 source)No Known Medication Allergies; Translations: [No Known Medication Allergies]Propensity to adverse reactions (disorder)[facility] Repository Medications Current Medications MedicationDrug Class(es)DatesSig (Normalized)Sig (Original)fluticasone propionate 0.05 mg/actuat metered dose nasal spray (1 source)CorticosteroidStart: 04-24-2023 End: 17-41-7933oldy 1 spray(s) nasal route in the morningfluticasone (Flonase) 50 MCG/ACT nasal spray Administer 1 spray into each nostril in the morning. 05/17/2024 Discontinuedlabetalol hydrochloride 200 mg oral tablet (8 sources)beta-Adrenergic BlockerStart: 04-01-2024 End: 46-10-3390mznk 1 tablet by mouth oncelabetalol (Normodyne) 200 MG tablet Take 1 tablet by mouth 1 (one) time 04/01/2024 05/08/2025 Discontinued (Therapy completed)loratadine 10 mg oral capsule (15 sources)take 1 capsule by mouth once dailyLoratadine (Claritin) 10 MG capsule Take 10 mg by mouth Daily ActivemethylPREDNISolone 4 mg oral tablet (1 source)CorticosteroidStart: 45-39-3495xgivutDMENWSKhayur 4 MG as directed Orally for daily dose take half with breakfast, half with dinner for 6 days May, ActiveNIFEdipine 90 mg osmotic 24 hr extended release oral tablet (5 sources)Dihydropyridine Calcium Channel BlockerStart: 88-87-5010kbra 1 tablet by mouth every twenty-four hours in the morningNIFEdipine XL (PROCARDIA XL) 90 mg 24 hr tablet Take 1 tablet (90 mg total) by mouth in the morning. 90 tablet 3 10/20/2024 ActiveStart: 07-14-2024 End: 73-19-6117wwsy 1 tablet by mouth every twenty-four hours in the morning NIFEdipine XL (PROCARDIA XL) 60 mg 24 hr tablet Take 1 tablet (60 mg total) by mouth in the morning. 90 tablet 3 07/14/2024 10/20/2024 DiscontinuedPrenatal MV-Min-Fe Fum-FA-DHA ( 1 PO) (8 sources) End: 67-59-1389Troltvxr MV-Min-Fe Fum-FA-DHA ( 1 PO) Take by mouth 05/08/2025 Discontinued (Therapy completed) MV-Min-Fe Fum-FA-DHA ( 1 PO) Take by mouth Active Problems Active Problems Problem ClassificationProblemDateDocumented DateEpisodic/ChronicAbdominal pain (3 sources)Upper abdominal pain; Translations: [Upper abdominal pain, unspecified]Onset: 06-83-9225WneldvblRtumwqag foot deformities (2 sources)Acquired valgus deformity of left ankle; Translations: [Valgus deformity, not elsewhere classified,left ankle]26-44-1432RfsoisudWfqfrfe disorders (1 source)Rvofalc38-19-8395NhhysbbEsqxyqmgsqrbc (17 sources)Endometriosis (clinical); Translations: [Endometriosis, unspecified] Onset: 645703-54-2006CnmuxcvAhwwmljpzr disorders (18 sources)Gastroesophageal reflux disease without esophagitis; Translations: [Gastro-esophageal reflux disease without esophagitis]Onset: 09-09-2023 37-06-8376AdepviiTsfkjsgor hypertension (17 sources)Essential hypertension; Translations: [Essential (primary) hypertension]Onset: 941413-73-0960IpkbxzoIljduryrbiabihaf hemorrhage (3 sources)Melena; Translations: [Hematochezia]Onset: 99-65-3603Xsmlpmod Genitourinary congenital anomalies (20 sources)Polycystic kidney, unspecified; 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]Onset: 989937-52-5220OxsboldEdidxfat; including migraine (1 source)Szgncsvq14-84-1071LomucvkFzbdffzu; including migraine (4 sources)Headache; including migraine; Translations: [HEADACHE UNSPECIFIED] Onset: 94-23-3867Najfacfuwgkec and screening for infectious disease (1 source)Encounter for screening for human papillomavirus (HPV); Translations: [ENC SCREENING HUMAN PAPILLOMAVIRUS]Onset: 80-89-4914LlrtgohqBdaze acquired deformities (2 sources)Equinus contracture of the ankle; Translations: [Contracture, left ankle]97-76-1326OsreptnFgbbq connective tissue disease (2 sources)Tendinitis of left posterior tibial tendon; Translations: [Posterior tibial tendinitis, left leg]78-90-2418EgsrqctdQtphg connective tissue disease (2 sources)Tendinitis of right posterior tibial tendon; Translations: [Posterior tibial tendinitis, right leg]72-40-9772CnygutwsUbgjy female genital disorders (16 sources)Pain in female genitalia on intercourse; Translations: [Unspecified dyspareunia]Onset: 861430-63-4383IwutvwyHmpck gastrointestinal disorders (1 source)Irritable bowel syndrome characterized by constipation; Translations: [Irritable bowel syndrome with constipation]ChronicOther gastrointestinal disorders (1 source)Constipation alternates with diarrhea; Translations: [Other specified symptoms and signs involving the digestive system and abdomen]EpisodicOther gastrointestinal disorders (1 source)Constipation; Translations: [Constipation, unspecified]EpisodicOther nervous system disorders (2 sources)Difficulty walking; Translations: [Difficulty in walking, not elsewhere classified]78-59-9247JvivuotFpist non-traumatic joint disorders (2 sources)Instability of joint of left ankle; Translations: [Other instability, left ankle]09-25-1926ThqjanqbNrtnf non-traumatic joint disorders (2 sources)Sinus tarsi syndrome of left ankle; Translations: [Pain in left ankle and joints of left foot]75-06-0216SwqzbmsoQphmj nutritional; endocrine; and metabolic disorders (16 sources)Obesity; Translations: [Obesity, unspecified]Onset: 09-09-2023 97-50-7924PrphgksAlsyr nutritional; endocrine; and metabolic disorders (1 source)Body mass index 30+ - cibplml47-09-4027GibxyofAwhxk nutritional; endocrine; and metabolic disorders (1 source)Obesity caused by energy nxkkoveri87-69-4842YalrqqiUheee nutritional; endocrine; and metabolic disorders (1 source)Unintentional weight loss; Translations: [Abnormal weight loss] EpisodicOther screening for suspected conditions (not mental disorders or infectious disease) (4 sources)Encounter for screening for malignant neoplasm of cervix; Translations: [ENC SCREENING MALIG NEOPLASM CERV]Onset: 20-19-7218BpqyokygSqsmk upper respiratory disease (16 sources)Chronic rhinitis; Translations: [Chronic rhinitis]Onset: 09-14-2023 11-85-4327MgkwiewDzdvfsqvh by nonmedicinal substances (1 source)Toxic effect of venom of bees, accidental (unintentional), initial encounterEpisodicResidual codes; unclassified (1 source)Sleep nrczo79-31-6371Mwlfjmq Past or Other Problems Problem ClassificationProblemDateDocumented DateEpisodic/ChronicAcute bronchitis (16 sources)Acute bronchiolitis; Translations: [Acute bronchiolitis, unspecified]Onset: 09-09-2023 Resolved: 050498-24-1446FpmzustqHoinj diseases of kidney and ureters (16 sources)Kidney disease; Translations: [Disorder of kidney and ureter, unspecified]Onset: 991747-46-6738RyrapdvdZessw and delivery including normal (1 source) care status; Translations: [Encounter for routine follow-up]77-06-9348RllhxsslOvvagh media and related conditions (16 sources)Dysfunction of bilateral eustachian tubes; Translations: [Unspecified Eustachian tube disorder, bilateral]Onset: EpisodicResidual codes; unclassified (16 sources)Bilateral lower limb edema; Translations: [Localized edema]Onset: 272360-09-0013Rfnoqeec Results Test NameValueInterpretationReference RangeFacilityAmbulatory Visit Summaryon 71-86-2442Qhypuzofja Visit SummaryAmbulatory Visit Summary AALIYAH CARVALHO :1995 [...] signed up for this yet, please contact [employer] at [phone] to get signed up today. Language Information Language assistance services are available as needed. [facility] Panel Informationon 37-07-8406Oipvxphyv Study observation (narrative)[facility] Study observation (narrative)[facility] Ankle - left 2 Viewson 05-08-2025 Imaging Result: AP, lateral views are weight-bearing. Decreased calcaneal inclination and increased talar declination. Talus is well seated within the ankle mortise. Os trigonum noted over the posterior talar process. No fractures or dislocations noted.[facility] Ankle - right 2 Viewson 06-84-2188NSVE HealthcareImaging Result: Entered in error, wrong [facility] - [facility] 2 Views on 63-90-0050Htguyan Result: AP, medial oblique views are weight-bearing. Increased IM 1-2 angle. Slight joint space narrowing of the 1st MTP. No cystic changes noted. Approximately 30 percent talar head uncoverage. Os trigonum noted over the posterior subtalar joint region.[facility] Foot - right 2 Viewson 85-37-5351AROF HealthcareImaging Result: Entered in error, wrong [facility] BaptistBASIC METABOLIC PANLon 74-04-2881Wuuoi gap [Moles/Vol]8 mmol/LNormal5-15[facility] Comment on above:Performed By: #### CBC, 83744-1, 35363-2, 2731-8, 87799-6, 29368-0, 78433-0, BMP, 5196-1, 87936-6, 5193-8, 6969-0, UPCR, SIFE, 08874-3, 6968-2, 2777-1 #### [facility] ([id number]) [address], [address] [place] [address] #### 84737-1 #### [facility] ([id number]) [address] [place] [address] 20483Crfmyuz [Mass/Vol]9.4 mg/dLNormal8.5-10.5ProMedica Mercy Medical CenterComment on above:Performed By: #### CBC, 37855-3, 89735-9, 2731-8, 36525-1, 62635-8, 27690-5, BMP, 5196-1, 30301-0, 5193-8, 6969-0, UPCR, SIFE, 35711-5, 6968-2, 2776-1 #### [facility] ([id number]) [address], [address] [place] [address] #### 45878-7 #### [facility] ([id number]) [address] [place] [address] 10728Freizrhw [Moles/Vol]107 mmol/JPpzcec73-092VhzTnurgm [facility]cy Medical CenterComment on above:Performed By: #### CBC, 47783-7, 45583-6, 2731-8, 92583-3, 99756-2, 17581-2, BMP, 5196-1, 11252-1, 5193-8, 6969-0, UPCR, SIFE, 57596-7, 6968-2, 2777-1 #### [facility] ([id number]) [address], [address] [place] [address] #### 95418-2 #### [facility] ([id number]) [address] [place] [address] 05411FS1 [Moles/Vol]28 mmol/LCmxwby13-53HqnDjwqiiCleveland Clinic [facility] Comment on above:Performed By: #### BERTA, 92893-3, 09289-3, 2731-8, 04302-8, 26430-6, 14777-9, BMP, 5196-1, 94053-9, 5193-8, 6969-0, UPCR, SIFE, 62439-5, 6968-2, 2777-1 #### [facility] ([id number]) [address], [address] [place] [address] #### 66958-6 #### [facility] ([id number]) [address] [place] [address] 35513Thbwtytjal [Mass/Vol]0.77 mg/dLNormal0.40-1.00[facility] HospitalComment on above:Result Comment: METHOD TRACEABLE TO IDMS STANDARD Performed By: #### BERTA, 00234-0, 12524-4, 2731-8, 24386-4, 91317-0, 41685-9, BMP, 5196-1, 40110-0, 5193-8, 6969-0, UPCR, SIFE, 02326-8, 6968-2, 2777-1 #### [facility] ([id number]) [address], [address] [place] [address] #### 54947-0 #### [facility] ([id number]) [address] [place] [address] 15843hMAB (CKD-EPI) NON-RACE DEPENDENT>90Normal>59ProLegent Orthopedic HospitalComment on above:Result Comment: Reported eGFR is based on the CKD-EPI 2020 equation that does not use a race coefficient.Performed By: #### BERTA, 10751-1, 63926-4, 2731-8, 75802-2, 05176-6, 89997-8, BMP, 5196-1, 20243-1, 5193-8, 6969-0, UPCR, SIFE, 62567-6, 6968-2, 2777-1 #### [facility] ([id number]) [address] [place] [address], [facility] [address] [place] [address] #### 65844-4 #### [facility] ([id number]) [address] [place] [address] 57240Qrsskwc [Mass/Vol]89 mg/wXYkejjq60-98AltMzxgwxLegent Orthopedic Hospital Comment on above:Performed By: #### CBC, 02411-1, 21953-3, 2731-8, 69634-3, 39278-3, 71776-6, BMP, 5196-1, 69783-3, 5193-8, 6969-0, UPCR, SIFE, 78997-7, 6968-2, 2777-1 #### [facility] ([id number]) [address] [place] [address], [address] [place] [address] #### 62328-4 #### [facility] ([id number]) [address] [place] [address] 34535Smrnrecbz [Moles/Vol]3.7 mmol/LNormal3.5-5.0ProLegent Orthopedic HospitalComment on above:Performed By: #### CBC, 00032-0, 02120-6, 2731-8, 24829-8, 66727-7, 60672-1, BMP, 5196-1, 37476-7, 5193-8, 6969-0, UPCR, SIFE, 81717-3, 6968-2, 2777-1 #### [facility] ([id number]) [address] [place] [address], [address] [place] [address] #### 93686-5 #### [facility] ([id number]) [address] [place] [address] 59639Srload [Moles/Vol]143 mmol/TXckemo608-546PmhPetqyk Wilsonville HospitalComment on above:Performed By: #### CBC, 38720-0, 66795-3, 2731-8, 82069-1, 34228-4, 51872-6, BMP, 5196-1, 11227-6, 5193-8, 6969-0, UPCR, SIFE, 54092-5, 6968-2, 2777-1 #### [facility] ([id number]) [address] [place] [address], [facility] [address] [place] [address] #### 52615-6 #### [facility] ([id number]) [address] [place] [address] 26802Mbrp nitrogen [Mass/Vol]12 mg/dLNormal5-ProLegent Orthopedic HospitalComment on above:Performed By: #### CBC, 72802-8, 63731-6, 2731-8, 52937-6, 90247-6, 65009-8, BMP, 5196-1, 86193-7, 5193-8, 6969-0, UPCR, SIFE, 35770-4, 6968-2, 2777-1 #### [facility] ([id number]) [address] [place] [address], [place] [id number] #### 27511-7 #### [facility] ([id number]) [address] [place] [address] 90588IXEAWGQV BLOOD COUNTon 53-81-3387Ponxqjrfcae distribution width (RBC) [Ratio]12.8 %Fxhxld56.5-15.0ProLegent Orthopedic HospitalComment on above: Performed By: #### CBC, 85754-4, 07995-1, 2731-8, 24266-9, 76513-7, 10889-7, BMP, 5196-1, 01793-8, 5193-8, 6969-0, UPCR, SIFE, 09324-9, 6968-2, 2777-1 #### [facility] ([id number]) [address] [place] [address], [address] [place] [id number] #### 45975-3 #### [facility] ([id number]) [address] [place] [address] 16890Edjjechpqa (Bld) [Volume fraction]38.9 %Scmpxh21-41QmcTqppivLegent Orthopedic HospitalComment on above:Performed By: #### CBC, 37729-2, 06529-5, 2731- 8, 05662-2, 25036-2, 65406-3, BMP, 5196-1, 63016-4, 5193-8, 6969-0, UPCR, SIFE, 61902-6, 6968-2, 2777-1 #### [facility] ([id number]) [address] [place] [address], [address] [address] #### 22533-1 #### [facility] ([id number]) [address] [place] [address] 83997Eozkiwhkvg (Bld) [Mass/Vol]13.3 g/uBTlrreb84.7-15.5ProMedica Mercy Medical CenterComment on above:Performed By: #### CBC, 37004-6, 09567-3, 2731- 8, 52067-9, 21212-8, 24356-2, BMP, 5196-1, 29756-9, 5193-8, 6969-0, UPCR, SIFE, 81296-3, 6968-2, 2777-1 #### [facility] ([id number]) [address] [place] [address], [address] [place] [address] #### 55900-2 #### [facility] ([id number]) [address] [place] [address] 56089HSS (RBC) [Entitic mass]32.0 waMwedhh55-98TqvRwpzicLegent Orthopedic HospitalComment on above:Performed By: #### CBC, 63795-8, 86148-4, 2731-8, 09713-8, 71577-6, 16126-4, BMP, 5196-1, 62550-7, 5193-8, 6969-0, UPCR, SIFE, 45511-9, 6968-2, 2777-1 #### [facility] ([id number]) [address], [address] [place] [address] #### 58874-8 #### [facility] ([id number]) [address] [place] [address] 33671EIUL (RBC) [Mass/Vol]34.3 g/gQXsmtjn37-16UxyEnhoitLegent Orthopedic HospitalComment on above:Performed By: #### CBC, 82688-9, 72576-5, 2731-8, 77820-9, 30318-9, 85411-1, BMP, 5196-1, 01999-5, 5193-8, 6969-0, UPCR, SIFE, 23478-8, 6968-2, 2777-1 #### [facility] ([id number]) [address], [address] [place] [address] #### 17784-7 #### [facility] ([id number]) [address] [place] [address] 87052FVE (RBC) [Entitic vol]93 rQWphqyt15-048FuaZjzfqg [facility] HospitalComment on above:Performed By: #### CBC, 47903-3, 22325-9, 2731-8, 83323-7, 57597-8, 84731-2, BMP, 5196-1, 07374-4, 5193-8, 6969-0, UPCR, SIFE, 19012-5, 6968-2, 2777-1 #### [facility] ([id number]) [address] [facility] [address], [address] [place] [address] #### 04925-5 #### [facility] ([id number]) [address] [place] [address] 02029Rudknpze mean volume (Bld) [Entitic vol]9.4 fLNormal7-12 [facility] Medical CenterComment on above:Performed By: #### CBC, 95465-7, 75729-9, 2731-8, 19354-8, 85028-4, 62649-8, BMP, 5196-1, 20733-8, 5193-8, 6969- 0, UPCR, SIFE, 17403-1, 6968-2, 2777-1 #### [facility] ([id number]) [address], [address] [place] [address] #### 50371-5 #### [facility] ([id number]) [address] [place] [address] 72380Dbiwqeulp (Bld) [#/Vol]268 10*3/zVGgnoss217-267LynYvwqsf [facility] HospitalComment on above:Performed By: #### BERTA, 10268-2, 09866-5, 2731- 8, 52519-2, 88428-9, 55406-9, BMP, 5196-1, 84863-7, 5193-8, 6969-0, UPCR, SIFE, 29416-8, 6968-2, 2777-1 #### [facility] ([id number]) [address], [address] [place] [address] #### 96523-9 #### [facility] ([id number]) [address] [place] [address] 28195SMH COUNT4.17 X10E12/LNormal3.80-5.20[facility] Comment on above:Performed By: #### CBC, 59748-4, 67264-2, 2731-8, 61715-0, 45621-0, 77549-3, BMP, 5196-1, 66997-1, 5193-8, 6969-0, UPCR, SIFE, 86729-5, 6968-2, 2777-1 #### [facility] ([id number]) [address], [address] [place] [address] #### 39091-6 #### [facility] ([id number]) [address] [place] [address] 92616VHK (Bld) [#/Vol]5.5 10*3/uLNormal4.0-11.0ProLegent Orthopedic HospitalComment on above:Performed By: #### CBC, 55574-0, 94856-1, 2731-8, 00465-2, 16048-3, 21924-6, BMP, 5196-1, 65593-7, 5193-8, 6969-0, UPCR, SIFE, 37674-4, 6968-2, 2777-1 #### [facility] ([id number]) [address], [address] [place] [address] #### 81408-1 #### [facility] ([id number]) [address] [place] [address] 42132GOAE LIGHT CHAINSon 94-15-8028LHMX MARY ANN/LAMBD RATIO1.32Normal 0.26-1.65ProLegent Orthopedic HospitalComment on above:Performed By: #### 49180-4, 2777-1, BMP, CBC, UPCR #### [facility] ([id number]) [address], [address] [place], [place] [address]ABEN KAPPA LT CHAINS1.50 mg/dLNormal0.33-1.94ProLegent Orthopedic HospitalComment on above:Performed By: #### 19990-6, 2777-1, BMP, CBC, UPCR #### [facility] ([id number]) [address], [address] [place], [place] [address]FJBN LAMBDA LT CHAINS1.14 mg/dLNormal0.57-2.63ProAshtab[facility] Center HospitalComment on above:Performed By: #### 92604-9, 2777-1, BMP, CBC, UPCR #### [facility] ([id number]) [address], [address] [place], [place] [address]Sexjzwwsqy basement membrane IgG Qn (S)on 52-05-1079BQL IgG Ab <0.2Normal<1.0[facility] HospitalComment on above:Performed By: #### 78491-1, 2777-1, BMP, CBC, UPCR #### [facility] ([id number]) [address], [address] [place], [place] [address]KVI core Ab IA Qlon 00-57-9357DUUA HBcNon-ReactiveNormalNRCT ProMevergreen medical centera Mercy Medical CenterComment on above:Result Comment: NEW TEST METHOD Performed By: #### 13652-3, 2777-1, BMP, CBC, UPCR #### [facility] ([id number]) [address], [address] [place], [place] [address]LDU surface Ab IA Qnon 51-93-2597Orru HBs quant.59.60 mIU/mL NormalProLegent Orthopedic HospitalComment on above:Result Comment: NOTE Vaccinated: >=10.00 mIU/mL, Positive (Immune) Unvaccinated: <10.00 mIU/mL, Negative (Not Immune) Interpretive values have changed due to implementation of a new method. Values run higher than previous method.Performed By: #### 66826-6, 2777-1, BMP, CBC, UPCR #### [facility] ([id number]) [address], [address] [place], [place] [address]KNL surface Ag IA Qlon 60-43-6871CQTABZUSG B SURF AGNon-Reactive NormalNRCTProLegent Orthopedic HospitalComment on above:Result Comment: NEW TEST METHODPerformed By: #### 95858-0, 2777-1, BMP, CBC, UPCR #### [facility] ([id number]) [address], [address] [place], [place] [address]PXQ Ab IA Qlon 61-65-2901APME HCV W/PCR REFLXNon-ReactiveNormal NRCTMercy Health St. Elizabeth Board[facility] HospitalComment on above:Result Comment: NEW TEST METHOD NOTE If recent infection suspected, recommend repeat testing (>2 months). Mmifqt-ts-jrrhol ratio is <1.00.Performed By: #### 82659-6, 2777-1, BMP, CBC, UPCR #### [facility] ([id number]) [address], [address] [place], [place] [address]BJY 1+2 Ab+HIV1 p24 Ag IA Qlon 46-77-1061BHN 1 and 2 Ab/Ag ScreenNon-ReactiveNormalNRCTMercy Health St. [facility] HospitalComascension [facility] on above:Result Comment: NEW TEST METHOD [...] HIV test results or diagnoses.Performed By: #### 48139-1, 2777-1, BMP, CBC, UPCR #### [facility] ([id number]) [address], [address] [place], [place] [address]RFXENGCUVgs 58-48-2316Cxexcuhbr [Mass/Vol]1.7 mg/dLLow1.8-2.6 [facility] Medical CenterComment on above:Performed By: #### 48070-1, 2777-1, BMP, CBC, UPCR #### [facility] ([id number]) [address], [address] [place], [place] [address]Svxidfrzrkgfzmg Ab Qn (S)on 27-04-4122Qakcpyxzwcpzyck Ab<0.2 Normal<1.0[facility] HospitalCom[facility] on above:Performed By: #### 23983-8, 2777-1, BMP, CBC, UPCR #### [facility] ([id number]) [address], [address] [place], [place] [address]Hsedfrmgud cytoplasmic Ab panel IF (S)on 80-10-0894q-ANCA NegativeNormalNegativeMercy Health West Hospital on above:Performed By: #### 44635-0, 2777-1, BMP, CBC, UPCR #### [facility] ([id number]) [address], [address] [place], [place] [address]t-CRDPKjbbysmcAzoyvwQooakofkLacLzrofi Fremont HospitalComment on above:Result Comment: NOTE Negative for cANCA and pANCA patterns by immunofluorescence. ADDITIONAL INFORMATION This test was developed and its performance characteristics determined by [facility] in a manner consistent with CLIA requirements. This test has not been cleared or approved by the U.S. Food and Drug Administration. Test Performed by: [place] [address] Manager Treasury: Hai Carias Ph.D.; CLIA# [id number] By: #### 09802- 9, 2777-1, BMP, CBC, UPCR #### [facility] ([id number]) [address] [place] [address] [place] [address]Dtvlvwj Ab IA Ql (S)on 04-92-3542WMW Screen w/reflexNegative NormalNEGMercy Health West Hospital on above:Result Comment: Testing performed using multiplex flow immunoassay. Eleven different antigens associated with systemic autoimmune diseases (dsDNA,Sm,Sm/FUNDS DEVELOPMENT DIRECTOR,FUNDS DEVELOPMENT DIRECTOR,Chromatin, SSA,SSB,Lily-1,Scl70,Ribo P,Centromere B) are included in this screening test.Performed By: #### 29570-3, 2777-1, BMP, CBC, UPCR #### [facility] ([id number]) [address], [address] [place], [place] [address]UNXMJMOJZSyx 58-12-8674Qujkkbbia [Mass/Vol]4.0 mg/dLNormal 2.4-4.9[facility] HospitalComment on above:Performed By: #### 98859-2, 2777-1, BMP, CBC, UPCR #### [facility] ([id number]) [address], [address] [place], [place] [address]WLWSCKV CREAT RATIOon 02-18-1810JTQLSX URINE YTUMDDQ34 mg/L Normal<120ProLegent Orthopedic HospitalComment on above:Performed By: #### 22332-2, 2777-, BMP, CBC, UPCR #### [facility] ([id number]) [address], [address] [place], [place] [address]O/PRO/CAPTAIN/CHECK AIRMAN RATIO CALC0.04Normal<0.2[facility] Comment on above:Result Comment: Nephrotic Syndrome is associated with ratios >3.5Performed By: #### 60059-2, 2777-, BMP, CBC, UPCR #### [facility] ([id number]) [address], [address] [place], [place] [address]QGMWE CREATININE,EPA713.27 mg/dLNoalMercy Health St. [facility] Comment on above:Performed By: #### 03715-5, 2777-1, BMP, CBC, UPCR #### [facility] ([id number]) [address], [address] [place], [place] [address]Mvgefpeskw.intact [Mass/Vol]on 48-15-5821ZEJ VYZTSU16 pg/mL Seztbd19-80BxyDejwvpLegent Orthopedic HospitalComment on above:Performed By: #### 30659- 9, 2777-1, BMP, CBC, UPCR #### [facility] ([id number]) [address], [address] [place], [place] [address]Juqdtmfwyz 3 Ab Qn (S)on 35-53-9778Hxsgvgdxmp 3 IgG Ab<0.2Normal <1.0ProLegent Orthopedic HospitalComment on above:Performed By: #### 92027-0, 2777- 1, BMP, CBC, UPCR #### [facility] ([id number]) [address], [address] [place], [place] [address]YEUPI IMMUNOFIXATIONon 59-06-0566IvB [Mass/Vol]155 mg/dLNormal 68-378[facility] HospitalComment on above:Performed By: #### CBC, 89483- 9, 71483-5, 2731-8, 59378-9, 45476-4, 56176-9, BMP, 5196-1, 36379-5, 5193-8, 6969-0, UPCR, SIFE, 52045-8, 6968-2, 2777-1 #### [facility] ([id number]) [address], [address] [place] [address] #### 73418-5 #### [facility] ([id number]) [address] [place] [address]QjB [Mass/Vol]974 mg/gYNyndyv226-5130CkkSucffx[address] [place] [address] Comment on above:Performed By: #### CBC, 17280-2, 03289-1, 2731-8, 00834-0, 73440-4, 98972-1, BMP, 5196-1, 09225-7, 5193-8, 6969-0, UPCR, SIFE, 69544-5, 6968-2, 2777-1 #### [facility] ([id number]) [address], [address] [place] [address] #### 12442-2 #### [facility] ([id number]) [address] [place] [address] 18306TiM [Mass/Vol]62 mg/xCQdsxop15-809CesFipewbMercy Health St. [facility] Comment on above:Performed By: #### CBC, 11578-9, 85062-0, 2731-8, 77725-2, 34863-4, 95424-0, BMP, 5196-1, 49892-7, 5193-8, 6969-0, UPCR, SIFE, 10710-9, 6968-2, 2777-1 #### [facility] ([id number]) [address], [address] [place] [address] #### 73165-5 #### [facility] ([id number]) [address] [place] [address]CMAQIX PROFILE INTERPUnremarkable pattern and quantitation, no monoclonal bands.NormalProMedica Mercy Medical CenterComment on above:Performed By: #### CBC, 76906-1, 95595-1, 2731-8, 47845-0, 00697-6, 28403-0, BMP, 5196-1, 06147-6, 5193-8, 6969-0, UPCR, SIFE, 49850-9, 6968-2, 277-1 #### [facility] ([id number]) [address], [address] [place] [address] #### 23787-3 #### [facility] ([id number]) [address] [place] [address]YQTTNWVNWViw 51-90-1712Vsvbhlrfw Ql (U)NegativeNormalNEG ProMedica [facility]cy Medical CenterComment on above:Performed By: #### 25346-6, 2777-1, BMP, CBC, UPCR #### [facility] ([id number]) [address], [address] [place], [place] [address]GYCSY/HGBNegativeNormalNEGProDayton Osteopathic Hospitalca Mercy Medical CenterComment on above:Performed By: #### 94951-0, 2777-1, BMP, CBC, UPCR #### [facility] ([id number]) [address], [address] [place], [place] [address]Tftgi (U)ORANGEAbnormalYELLOWProMedica Wilsonville HospitalComment on above:Performed By: #### 91203-8, 2777-1, BMP, CBC, UPCR #### [facility] ([id number]) [address], [address] [place], [place] [address]Znnyycu Ql (U)NegativeNormalNEGProLegent Orthopedic HospitalComment on above:Performed By: #### 06728-8, 277-, BMP, CBC, UPCR #### [facility] ([id number]) [address], [address] [place], [place] [address]Zajsrlu Ql (U)NegativeNormalNEGProLegent Orthopedic HospitalComment on above:Performed By: #### 29876-7, 277-, BMP, CBC, UPCR #### [facility] ([id number]) [address], [address] [place], [place] [address]Fnfnrfgjs esterase Test strip Ql (U)NegativeNoalNEGMercy Health St. Elizabeth Board[facility] HospitalComascension st. [facility] on above:Performed By: #### 85096-0, 277-, BMP, CBC, UPCR #### [facility] ([id number]) [address], [address] [place], [place] [address]NTRVZVMLBNSGFVubipdalOOWNHjgOlijcv [facility] HospitalComment on above:Performed By: #### 93972-2, 277-, BMP, CBC, UPCR #### [facility] ([id number]) [address], [address] [place], [place] [address]Ajxmqii Ql (U)NegativeNormalNEGProLegent Orthopedic HospitalComment on above:Performed By: #### 64518-1, 277-1, BMP, CBC, UPCR #### [facility] ([id number]) [address], [address] [place], [place] [address]tW (U)5.5 [pH]Normal5.0-8.5PC[facility] HospitalComment on above:Performed By: #### 21008-9, 2776-1, BMP, CBC, UPCR #### [facility] ([id number]) [address], [address] [place], [place] [address]Phwhbod Ql (U)NegativeNormalNEGProLegent Orthopedic HospitalComment on above:Performed By: #### 44197-4, 2776-, BMP, CBC, UPCR #### [facility] ([id number]) [address], [address] [address]A.B.CELLS2 /hpfNormal0-5PC[facility] HospitalComment on above:Performed By: #### 05600-9, 2776-09, BMP, CBC, UPCR #### [facility] ([id number]) [address], [address] [address]Lzvrpsle gravity (U) [Rel density]1.842Uxumcx0.003-1.035 Pro[facility]ica [facility]cy Medical CenterComment on above:Performed By: #### 71827-4, 2776-09, BMP, CBC, UPCR #### [facility] ([id number]) [address], [address] [address]IMUFSOSW EPITHELIUM6 /hpfHigh0-5[facility] Comment on above:Performed By: #### 36206-7, 2776-09, BMP, CBC, UPCR #### [facility] ([id number]) [address], [address] [address]JPMERXPSLDXIZDJFndutooyPGCTAFjcNxwfaj [facility] HospitalComment on above:Performed By: #### 44338-4, 2776-, BMP, CBC, UPCR #### [facility] ([id number]) [address], [address] [address]Dinmlrpzzedl (U) [Mass/Vol]mg/dLNormal<1.1PC[facility] Clinic [facility] HospitalComment on above:Performed By: #### 96287-0, 2776-, BMP, CBC, UPCR #### [facility] ([id number]) [address], [address] [place], [place] [address]H.B.CELLS1 /hpfNormal0-5ProMedica [facility] Medical CenterComment on above:Performed By: #### 96049-3, 2777-, BMP, CBC, UPCR #### [facility] ([id number]) [address], [address] [place], [place] [address]Sexzffp D+Metabolites [Mass/Vol]on 60-37-1603REWOEIQ D 25 HYD TOT18.5 ng/dSJoa36-239OkfWnzeld [facility] Medical CenterComment on above:Result Comment: Vitamin D status 25 [place] Vitamin D Deficiency <20 ng/mL Insufficiency 20-29 ng/mL Sufficiency 30-100 ng/mL Toxicity >100 ng/mL NOTE: A pediatric reference range has not been established by the grounds cleaner of this kit. The [place] [employer] recommends a Vitamin D level of = or >20ng/mL in infants and children.Performed By: #### 80171-5, 27703-28, BMP, CBC, UPCR #### [facility] ([id number]) [address], [address] [address] RETROPERITONEAL COMPLETEon 01-10-4591KX RETROPERITONEAL COMPLETEUS RETROPERITONEAL COMPLETE HISTORY: A 28-year-old [...] by Misael Knox MD on 07/19/2024 5:08 PMNormalProLegent Orthopedic HospitalBASI METABOLIC PANLon 33-32-2433Pxesd gap [Moles/Vol]9 mmol/LNormal5-15 [facility] Centeredica [facility]cy Medical CenterComment on above:Performed By: #### 20624-0, 2777-1, BMP, CBC, UPCR #### [facility] ([id number]) [address], [address] [place], [place] [address]Cxijrmz [Mass/Vol]9.2 mg/dLNormal8.5-10.5[facility] Hospitalica Mercy Medical CenterComment on above:Performed By: #### 55626-2, 2777-1, BMP, CBC, UPCR #### [facility] ([id number]) [address], [address] [place], [place] [address]Dymjiwfe [Moles/Vol]107 mmol/DGuxuhm00-669MfmDvewclMercy Health St. Elizabeth Boardman HospitalComment on above:Performed By: #### 73962-8, 2777-1, BMP, CBC, UPCR #### [facility] ([id number]) [address], [address] [place], [place] [address]FS3 [Moles/Vol]26 mmol/WLgljuh69-18KbbAeisctCleveland Clinic Fairview Hospital Comment on above:Performed By: #### 70203-0, 2777-, BMP, CBC, UPCR #### [facility] ([id number]) [address], [address] [place], [place] [address]Ozuocacjjh [Mass/Vol]0.83 mg/dLNormal0.40-1.00[facility] HospitalComment on above:Result Comment: METHOD TRACEABLE TO IDMS STANDARD Performed By: #### 23721-3, 2777-, BMP, CBC, UPCR #### [facility] ([id number]) [address], [address] [place], [place] [address]kNXM (CKD-EPI) NON-RACE DEPENDENT>90Normal>59ProLegent Orthopedic HospitalComment on above:Result Comment: Reported eGFR is based on the CKD-EPI 2020 equation that does not use a race coefficient.Performed By: #### 33496-4, 2777-, BMP, CBC, UPCR #### [facility] ([id number]) [address], [address] [place], [place] [address]Xshgwct [Mass/Vol]97 mg/rZVugabl06-97HmlHwxoucMercy Health St. [facility] Comment on above:Performed By: #### 17408-9, 2777-, BMP, CBC, UPCR #### [facility] ([id number]) [address], [address] [place], [place] [address]Cqfqufceh [Moles/Vol]4.2 mmol/LNormal3.5-5.0[facility] HospitalComment on above:Performed By: #### 25036-6, 2777-, BMP, CBC, UPCR #### [facility] ([id number]) [address], [address] [place] [address]Nymwna [Moles/Vol]142 mmol/JGqqxbe555-477WkvKgjnltMercy Health St. Elizabeth Boardman HospitalComment on above:Performed By: #### 07848-5, 2776-09, BMP, CBC, UPCR #### [facility] ([id number]) [address], [address] [place], [place] [address]Gesi nitrogen [Mass/Vol]18 mg/dLNormal5-23ProLegent Orthopedic HospitalComment on above:Performed By: #### 39088-8, 2776-09, BMP, CBC, UPCR #### [facility] ([id number]) [address], [address] [place], [place] [address]QXDUOQTZ BLOOD COUNTon 54-08-1775Iruniktzsup distribution width (RBC) [Ratio]12.9 %Ozfzcz34.5-15.0[facility] Board[facility] HospitalComment on above: Performed By: #### 89572-8, 2776-09, BMP, CBC, UPCR #### [facility] ([id number]) [address], [address] [place], [place] [address]Sohfsqshbd (Bld) [Volume fraction]42.6 %Famxqv56-96CynKlguavLegent Orthopedic HospitalComment on above:Performed By: #### 22755-7, 2776-09, BMP, CBC, UPCR #### [facility] ([id number]) [address], [facility] [address] [place], [place] [address]Ubjmhfsgst (Bld) [Mass/Vol]14.4 g/iOPbljmv89.7-15.5PCleveland Clinic Fairview HospitalComment on above:Performed By: #### 17442-1, 2776-09, BMP, CBC, UPCR #### [facility] ([id number]) [address], [address] [place], [place] [address]GCP (RBC) [Entitic mass]32.3 ypKhmijt64-58PpyAuehzdLegent Orthopedic HospitalComment on above:Performed By: #### 39850-1, 277-, BMP, CBC, UPCR #### [facility] ([id number]) [address], [address] [place] [address]KAFN (RBC) [Mass/Vol]33.8 g/sHPtuisd76-02CzoJzkzerLegent Orthopedic HospitalComment on above:Performed By: #### 56072-7, 277-, BMP, CBC, UPCR #### [facility] ([id number]) [address], [address] [place], [place] [address]WWF (RBC) [Entitic vol]96 dZYjodvt57-281MbrFvbziz [facility] HospitalComment on above:Performed By: #### 73137-9, 2776-, BMP, CBC, UPCR #### [facility] ([id number]) [address], [address] [place], [place] [address]Dfwmjkgi mean volume (Bld) [Entitic vol]9.0 fLNormal7-12 [facility] Medical CenterComment on above:Performed By: #### 66398-4, 277-, BMP, CBC, UPCR #### [facility] ([id number]) [address], [address] [place], [place] [address]Ooaxvxidk (Bld) [#/Vol]269 10*3/eSEpsdkj975-673GzpKjsmdj [facility] HospitalComment on above:Performed By: #### 27018-2, 277-, BMP, CBC, UPCR #### [facility] ([id number]) [address], [address] [place] [address]JIU COUNT4.45 X10E12/LNormal3.80-5.20[facility] Comment on above:Performed By: #### 27926-0, 277-, BMP, CBC, UPCR #### [facility] ([id number]) [address], [address] [place], [place] [address]AIV (Bld) [#/Vol]5.1 10*3/uLNormal4.0-11.0[facility] HospitalComment on above:Performed By: #### 22418-0, 2777-1, BMP, CBC, UPCR #### [facility] ([id number]) [address], [address] [place] [address]VKWKQHEKFlb 23-37-5779Hnakryomw [Mass/Vol]1.8 mg/dLNormal1.8-2.6 ProMLanterman Developmental CenterComment on above:Performed By: #### 05450-8, 277-1, BMP, CBC, UPCR #### [facility] ([id number]) [address], [address] [place], [place] [address]WPPHLJPVXGmq 63-78-8767Eypwwzfip [Mass/Vol]3.7 mg/dLNormal 2.4-4.9[facility] HospitalComment on above:Performed By: #### 12294-1, 277-, BMP, CBC, UPCR #### [facility] ([id number]) [address], [address] [place], [place] [address]KSZDICO CREAT RATIOon 91-52-7926BYHZMM URINE ISFJJFV705 mg/LHigh <120[facility] HospitalComment on above:Performed By: #### 72319-8, 2777- , BMP, CBC, UPCR #### [facility] ([id number]) [address], [address] [place], [place] [address]B/PRO/CAPTAIN/CHECK AIRMAN RATIO CALC0.09Normal<0.2[facility] Comment on above:Result Comment: Nephrotic Syndrome is associated with ratios >3.5Performed By: #### 49944-2, 2777-1, BMP, CBC, UPCR #### [facility] ([id number]) [address], [address] [place], [place] [address]VEYCK CREATININE,XRR833.44 mg/dLCenterpoint Medical CenteralMercy Health St. [facility] Comment on above:Performed By: #### 49803-8, 2777-1, BMP, CBC, UPCR #### [facility] ([id number]) [address], [address] [place], [place] [address]WJSYYKHVFFjw 85-01-9426Ippxfnepn Ql (U)NegativeNormalNEG [facility] Medical CenterComment on above:Performed By: #### UA #### [facility] ([id number]) [address] [facility], [address] [place], [place] [address]DVEKR/HGBNegativeNormalNEGProLegent Orthopedic HospitalComment on above:Performed By: #### UA #### [facility] ([id number]) [address] [facility], [address] [place], [place] [address]Arybo (U)YELLOWNormalYELLOWProLegent Orthopedic HospitalComment on above:Performed By: #### UA #### [facility] ([id number]) [address] [facility], [address] [place], [place] [address]Eauhfmf Ql (U)NegativeNormalNEGProLegent Orthopedic HospitalComment on above:Performed By: #### UA #### [facility] ([id number]) [address] [facility], [address] [place], [place] [address]Akuzunq Ql (U)NegativeNormalNEGProLegent Orthopedic HospitalComascension st. [facility] on above:Performed By: #### UA #### [facility] ([id number]) [address], [address] [place], [place] [address]Gmexpilcm esterase Test strip Ql (U)NegativeNormalNEGProLegent Orthopedic HospitalComascension st. [facility] on above:Performed By: #### UA #### [facility] ([id number]) [address], [address] [place], [place] [address]CIJAPWIXIZLYJKyghktdyNKRDYogHymdiy [facility] HospitalComasc[facility] on above:Performed By: #### UA #### [facility] ([id number]) [address] [facility], [address] [place], [place] [address]Bvyuyar Ql (U)NegativeNormalNEGMercy Health St. Elizabeth Boardman HospitalComment on above:Performed By: #### UA #### [facility] ([id number]) [address], [address] [place], [place] [address]oB (U)5.5 [pH]Normal5.0-8.5PCleveland Clinic Fairview HospitalComment on above:Performed By: #### UA #### [facility] ([id number]) [address], [address] [place], [place] [address]Mpmmbdw Ql (U)TraceAbnormalNEGMercy Health St. Elizabeth Boardman HospitalComment on above:Performed By: #### UA #### [facility] ([id number]) [address], [address] [place], [place] [address]W.B.CELLS1 /hpfNormal0-5PCleveland Clinic Fairview HospitalComment on above:Performed By: #### UA #### [facility] ([id number]) [address], [address] [place], [place] [address]Kndwwgxv gravity (U) [Rel density]1.739Knienc3.003-1.[address] [facility] HospitalComment on above:Performed By: #### UA #### [facility] ([id number]) [address], [address] [place], [place] [address]JBIXQKSY JYSRBKEUDC06 /hpfHigh0-5[facility] Comment on above:Performed By: #### UA #### [facility] ([id number]) [address], [address] [place], [place] [address]SWIKHMNFCJGRAAVxwqxsVHOBHRdlXcsdyl [facility] HospitalComment on above:Performed By: #### UA #### [facility] ([id number]) [address], [address] [place], [place] [address]Zaqayedubxqq (U) [Mass/Vol]mg/dLNormal<1.1[facility] HospitalComment on above:Performed By: #### UA #### [facility] ([id number]) [address], [address] [place], [place] [address]P.B.CELLS2 /hpfNormal0-5[facility] HospitalComment on above:Performed By: #### UA #### [facility] ([id number]) [address] [facility], [address] [place], [place] [address]SUI,APTIMA HPV,AGE GDLNon 37-27-2426WGR GDLN ACOG TESTINGNote. [facility] HealthcareComment on above:TESTS RESULT FLAG UNITS REF RANGE LAB Clinician Provided Cytology Information Source.............Cervix;Endocervix No. of containers..01 ThinPrep Vial Age Algo ACOG Ligia... -26 10 FLAG LEGEND: L-Low Normal,H-High Normal,LL-Alert Low,HH-Alert High <-Panic Low,>-Panic High,A-Abnormal,AA-Critical Abnormal Performed at: 01 =[facility] [address] Gillian Guillaume MD, IGP, RFX APTIMA HPV ASCUNote.NOMS HealthcareComment on above:TESTS RESULT FLAG UNITS REF RANGE LAB DIAGNOSIS: 02 NEGATIVE FOR INTRAEPITHELIAL LESION OR MALIGNANCY. Specimen adequacy: 02 Satisfactory for evaluation. Endocervical and/or squamous metaplastic cells (endocervical component) are present. Performed by: 02 Matt Martínez, Medical Office Manager ([facility]) . 02 Note: Note 02 The [...] Low,>-Panic High,A-Abnormal,AA-Critical Abnormal Performed at: [address] [facility] [address] [place] [address] Gillian Guillaume MD, Performed at: = - [facility] [address], [place] [id number] Manager Treasury: Gillian Guillaume MD, Phone: [phone] Performed at: [facility] [address] [id number] Manager Treasury: Gillian Guillaume MD, Phone: [phone] BRUSH-SPATULA CERVIX ENDOCERVIX CLINISYNCNOOH HealthcareALL BUNon 49-45-1955Ueyt nitrogen [Mass/Vol]6.0 mg/dLLow 7.0 - 18.0 mg/dLSTEWARD HEALTH CARE SYSTEM HealthcareALL CBC WITH AUTO DIFFon 11-55-5421LKHOSCBXD ABSOLUTE AUTO0.0NOOH HealthcareBasophils/100 WBC (Bld)0.0 %Low0.2 - 2.0 %[facility] HospitalEosinophils/100 WBC (Bld)1.6 %0.9 - 7.0 %[facility] HospitalErythrocyte distribution width (RBC) [Ratio]12.7 %11.0 - 15.0 %[facility] HealthcareHematocrit (Bld) [Volume fraction]38.6 %36.0 - 48.0 %[facility] HospitalHemoglobin (Bld) [Mass/Vol]13.2 g/dL12.0 - 16.0 g/dLProgress West HospitalIMMATURE GRANULOCYTES ABS AUTO 0.05HighNOTwo Rivers Psychiatric HospitalImmature granulocytes/100 WBC (Bld)0.6 %High0.0 - 0.5 % [facility] HospitalInterpretation and review of laboratory resultsAbnormalProgress West HospitalLYMPHOCYTES ABSOLUTE AUTO0.9LowNOMS [facility] State East HospitalLymphocytes/100 WBC (Bld)9.8 %Low20.5 - 60.0 %[facility] HospitalH (RBC) [Entitic mass]33.1 pg26.7 - 34.0 pgSoutheast Missouri HospitalHC (RBC) [Mass/Vol]34.2 g/dL29.9 - 35.2 g/dLSoutheast Missouri HospitalV (RBC) [Entitic vol]96.7 fL81.0 - 99.0 fLProgress West HospitalMONOCYTES ABSOLUTE AUTO0.4NOMS [facility] HospitalMonocytes/100 WBC (Bld)4.2 %1.7 - 12.0 %[facility] HospitalNEUTROPHILS ABSOLUTE AUTO7.3HighNOTwo Rivers Psychiatric HospitalNeutrophils/100 WBC (Bld)83.8 %High43.0 - 75.0 %[facility] HospitalPlatelet mean volume (Bld) [Entitic vol]11.0 fL9.5 - 13.5 fLProgress West HospitalTB EO #0.1NOMS [facility] HospitalTB FBP209KCYJFreeman Cancer Institute RBC3.99LowNOTwo Rivers Psychiatric HospitalTB WBC8.7NOOH HealthcareCLINISYNCAPE COD AND [facility] HealthcareALL URIC ACIDon 73-14-2387Bwwhi [Mass/Vol]3.8 mg/dL2.6 - 6.0 mg/dLProgress West HospitalCCF Joie 88-46-6464ELD [Catalytic activity/Vol]25 U/L14 - 59 U/LNMetropolitan Saint Louis Psychiatric Center APTTon 91-41-4454nBJR Coag (Bld) [Time]25.2 [facility] Isaias 49-63-7856RBT [Catalytic activity/Vol]22 U/L15 - 37 U/LNMercy McCune-Brooks HospitalMHPT FIBRINOGENon 41-54-6341HKYIEBWWRZ494 mg/jSVaot001 - 400 mg/dLSTEWARD HEALTH [facility]ARE SYSTEM Healthcare Interpretation and review of laboratory resultsAbHenry Ford HospitalNo Panel Informationon 67-33-0355UHAEMJOUMBBLB HealthcareInterpretation and review of laboratory resultsAbUNC Health Blue Ridge - ValdeseMCOH PROTHROMBIN TIME INR W/O COUMon 77-16-3502QN Coag (PPP) [Time]9.9 [facility] INR0.93[facility] HealthcareComment on above:DESIRED INR: 2.0-3.0 CONDITIONS NOT LISTED BELOW 2.5-3.5 FOR PROSTHETIC HEART VALVE REPLACEMENT 2.5-3.5 RECURRENT THROMBOSIS TB CREATININEon 13-97-2180Nurzczbnyj [Mass/Vol]0.51 mg/dLLow0.55 - 1.02 mg/dL N[facility] HealthcareGFR/1.73 sq M.predicted CKD-EPI (S/P/Bld) [Vol rate/Area]>6060 - PINFProgress West HospitalTB EGFR-NON AF TONGAN>6060 - PINNortheast Missouri Rural Health Network DRUG SCREEN RAPID (URINE)on 09-43-5563MWKVCBVTODY SCREEN URINENegativeNEGATIVENOMS HealthcareBARBITURATES SCREEN URINENegativeNEGATIVENOMS Healthcare BENZODIAZEPINES [...] URINENegativeNEGATIVENOMS HealthcareTBH URINE T PROTEIN CREAT RATIOon 03-31-1901IGYBLRRBDV URINE ALPJJX084.07 mg/dL20.00 - 300.00 mg/dL [facility] HealthcareInterpretation and review of laboratory resultsAbnormalNOMS HealthcareProtein (U) [Mass/Vol]22.3 mg/dLHighNINF - 11.9 mg/dLNOMS Healthcare PROTEIN CREATININE RATIO URINE0.20NOMS HealthcareCLINISYNCNOMS HealthcareUS OB BPP W NON-STRESSon 07-70-7961[place]sm[place] [address] Ultrasound Report Signed Patient: AALIYAH CARVALHO MR#: [id number] : 1995 Acct:[id number] Age/Sex: 28 / F ADM Date: 03/30/24 Loc: [facility] 250-[address]: Juan C Stinson D.O. Ordering Physician: Juan C Stinson D.O. Date of Service: 03/30/24 Procedure(s): US OB BPP w non-stress Accession Number(s): [id number] cc: Juan C Stinson D.O.; Jay Sadler M.D. [address] [address] Patient Name: AALIYAH CARVALHO MRN: [id number] date: 1995 Sex: F Assigned Patient Location: [facility] Current Patient Location: [facility] Accession/Order Number: [id number] Exam Date: 03/30/2024 08:03 Report Date: 03/30/2024 [...] M.D. Signed By: 03/30/24915 DD/ 2 TD/TT: Movie Editor:TBHRadiology, Radiologist, MD - 03/30/2024 [place] [address] Ultrasound Report Signed Patient: AALIYAH CARVALHO MR#: [id number] : 1995 Acct:[id number] Age/Sex: 28 / F ADM Date: 03/30/24 Loc: [facility] 250-[address]: Juan C Stinson D.O. Ordering Physician: Juan C Stinson D.O. Date of Service: 03/30/24 Procedure(s): US OB BPP w non-stress Accession Number(s): [id number] cc: Juan C Stinson D.O.; Jay Sadler M.D. The [address] [address] Patient Name: AALIYAH CARVALHO MRN: [id number] date: 1995 Sex: F Assigned Patient Location: [facility] Current Patient Location: [facility] Accession/Order Number: [id number] Exam Date: 03/30/2024 08:03 Report Date: 03/30/2024 [...] M.D. Signed By: 03/30/24915 DD/ 2 TD/TT: Movie Editor: JOSE HealthcareRadiology Study observation (narrative)[facility]OM[facility] HealthcareUS OB BPP W NON-STRESSOrdered By: Radiologist Radiology on 76-45-5328SMQX [facility] Work Phone: US OB GROWTHon 24-27-7228[place], [place] [address] Ultrasound Report Signed Patient: AALIYAH CARVALHO MR#: [id number] : 1995 Acct:[id number] Age/Sex: 28 / F ADM Date: 03/30/24 Loc: [facility] 250-[address]: Juan C Stinson D.O. Ordering Physician: Juan C Stinson D.O. Date of Service: 03/30/24 Procedure(s): US OB growth Accession Number(s): [id number] cc: Juan C Stinson D.O.; Jay Sadler M.D. [address] [address] Patient Name: AALIYAH CARVALHO MRN: [id number] date: 1995 Sex: F Assigned Patient Location: [facility] Current Patient Location: [facility] Accession/Order Number: [id number] Exam Date: 03/30/2024 08:03 Report Date: 03/30/2024 [...] M.D. Signed By: 03/30/24919 DD/ 6 TD/TT: Movie Editor:TBHRadiology, Radiologist, MD - 03/30/2024 [place] [address] Ultrasound Report Signed Patient: AALIYAH CARVALHO MR#: [id number] : 1995 Acct:[id number] Age/Sex: 28 / F ADM Date: 03/30/24 Loc: [facility] 250-[address]: Juan C Stinson D.O. Ordering Physician: Juan C Stinson D.O. Date of Service: 03/30/24 Procedure(s): US OB growth Accession Number(s): [id number] cc: Juan C Stinson D.O.; Jay Sadler M.D. [place] [address] Patient Name: AALIYAH CARVALHO MRN: [id number] date: 1995 Sex: F Assigned Patient Location: [facility] Current Patient Location: [facility] Accession/Order Number: [id number] Exam Date: 03/30/2024 08:03 Report Date: 03/30/2024 [...] M.D. Signed By: 03/30/24919 DD/ 6 TD/TT: Movie Editor: NOMS HealthcareRadiology Study observation (narrative)NOMS HealthcareUS OB GROWTHOrdered By: Radiologist Radiology on 00-46-9928HQFR [facility] Work Phone: US OB BPP W NON-STRESSon 19-22-7553YbfW[place] [address] Ultrasound Report Signed Patient: AALIYAH CARVALHO MR#: [id number] : 1995 Acct:[id number] Age/Sex: 28 / F ADM Date: 03/23/24 Loc: US Attending Dr: Juan C Stinson D.O. Ordering Physician: Juan C Stinson D.O. Date of Service: 03/23/24 Procedure(s): US OB BPP w non-stress Accession Number(s): [id number] cc: Juan C Stinson D.O.; Jay Sadler M.D. [place] [id number] Patient Name: AALIYAH CARVALHO MRN: [id number] date: 1995 Sex: F Assigned Patient Location: [facility] Current Patient Location: Accession/Order Number: [id number] Exam Date: 03/23/2024 07:57 Report Date: 03/23/2024 [...] Womack M.D. Signed By: 03/23/24900 DD/ TD/TT: Movie Editor:TBHRadiologSushma merida MD - 03/23/2024 [place] [address] Ultrasound Report Signed Patient: AALIYAH CARVALHO MR#: [id number] : 1995 Acct:[id number] Age/Sex: 28 / F ADM Date: 03/23/24 Loc: US Attending Dr: Juan C Stinson D.O. Ordering Physician: Juan C Stinson D.O. Date of Service: 03/23/24 Procedure(s): US OB BPP w non-stress Accession Number(s): [id number] cc: Juan C Stinson D.O.; Jay Sadler M.D. The [place] [id number] Patient Name: AALIYAH CARVALHO MRN: [id number] date: 1995 Sex: F Assigned Patient Location: [facility] Current Patient Location: Accession/Order Number: [id number] Exam Date: 03/23/2024 07:57 Report Date: 03/23/2024 [...] M.D. Signed By: 03/23/24900 DD/ 0858 TD/TT: Movie Editor: JOSE HealthcareRadiology Study observation (narrative)NOMS HealthcareUS OB BPP W NON-STRESSOrdered By: Radiologist Radiology on 99-92-8200YMVT [employer] Work Phone: us OB BPP W NON-STRESSon [phone] [place] [address] Ultrasound Report Signed Patient: AALIYAH CARVALHO MR#: [id number] : 1995 Acct:[id number] Age/Sex: 28 / F ADM Date: 03/16/24 Loc: US Attending Dr: Juan C Stinson D.O. Ordering Physician: Juan C Stinson D.O. Date of Service: 03/16/24 Procedure(s): US OB BPP w non-stress Accession Number(s): [id number] cc: Juan C Stinson D.O.; Jay Sadler M.D. [address] [address] Patient Name: AALIYAH CARVALHO MRN: [id number] date: 1995 Sex: F Assigned Patient Location: [facility] Current Patient Location: Accession/Order Number: [id number] Exam Date: 03/16/2024 07:51 Report Date: 03/16/2024 [...] M.D. Signed By: 03/16/24910 DD/ 7 TD/TT: Movie Editor:ROBYNHRadiologmagnolia, Radiologist, MD - 03/16/2024 [place] [address] Ultrasound Report Signed Patient: AALIYAH CARVALHO MR#: [id number] : 1995 Acct:[id number] Age/Sex: 28 / F ADM Date: 03/16/24 Loc: US Attending Dr: Juan C Stinson D.O. Ordering Physician: Juan C Stinson D.O. Date of Service: 03/16/24 Procedure(s): US OB BPP w non-stress Accession Number(s): [id number] cc: Juan C Stinson D.O.; Jay Sadler M.D. The [place] [address] Patient Name: AALIYAH CARVALHO MRN: [id number] date: 1995 Sex: F Assigned Patient Location: [facility] Current Patient Location: Accession/Order Number: [id number] Exam Date: 03/16/2024 07:51 Report Date: 03/16/2024 [...] M.D. Signed By: 03/16/24910 DD/ 7 TD/TT: Movie Editor: JOSE HealthcareRadiology Study observation (narrative)JOSE HealthcareUS OB BPP W NON-STRESSOrdered By: Radiologist Radiology on 53-02-2477XGFL Healthcare Work Phone: US OB GROWTHon [phone] [place] [address] Ultrasound Report Signed Patient: AALIYAH CARVALHO MR#: [id number] : 1995 Acct:[id number] Age/Sex: 28 / F ADM Date: 03/01/24 Loc: [facility] Attending Dr: Juan C Stinson D.O. Ordering Physician: Juan C Stinson D.O. Date of Service: 03/01/24 Procedure(s): US OB growth Accession Number(s): [id number] cc: Juan C Stinson D.O.; Jay Sadler M.D. [place] [address] Patient Name: AALIYAH CARVALHO MRN: [id number] date: 1995 Sex: F Assigned Patient Location: [facility] Current Patient Location: [facility] Accession/Order Number: [id number] Exam Date: 03/01/2024 09:51 Report Date: 03/01/2024 [...] was notified of these findings by the briar shop supervisor at time of imaging. Electronically authenticated by: CHELSEA DELCID Date: 03/01/2024 12:43 Dictated By: Chelsea Delcid M.D. Signed By: 03/01/24 1245 DD/ 1243 TD/TT: Movie Editor:TBHRadiology, Radiologist, - 03/01/2024 [place] [address] Ultrasound Report Signed Patient: AALIYAH CARVALHO MR#: [id number] : 1995 Acct:[id number] Age/Sex: 28 / F ADM Date: 03/01/24 Loc: [facility] Attending Dr: Juan C Stinson D.O. Ordering Physician: Juan C Stinson D.O. Date of Service: 03/01/24 Procedure(s): US OB growth Accession Number(s): [id number] cc: Juan C Stinson D.O.; Jay Sadler M.D. The [place] [address] Patient Name: AALIYAH CARVALHO MRN: [id number] date: 1995 Sex: F Assigned Patient Location: [facility] Current Patient Location: [facility] Accession/Order Number: [id number] Exam Date: 03/01/2024 09:51 Report Date: 03/01/2024 [...] was notified of these findings by the briar shop supervisor at time of imaging. Electronically authenticated by: CHELSEA DELCID Date: 03/01/2024 12:43 Dictated By: Chelsea Delcid M.D. Signed By: 03/01/24 1240 DD/ 1243 TD/TT: Movie Editor: JOSE HealthcareRadiology Study observation (narrative)NOM HealthcareUS OB GROWTHOrdered By: Radiologist Radiology on 15-95-8434OGXMProgress [facility] Work Phone: no Panel InformationOrdered By: Radiologist Radiology on 62-06-5781VLGKProgress West Hospital Work Phone: no Panel Informationon 12-15-3745Fvzyeepts Study observation (narrative)NOM HealthcareUS OB ANATOMYon 52-30-2482Sbt[place] [address] Ultrasound Report Signed Patient: AALIYAH CARVALHO MR#: [id number] : 1995 Acct:[id number] Age/Sex: 28 / F ADM Date: 12/16/23 Loc: [facility] Attending Dr: Juan C Stinson D.O. Ordering Physician: Juan C Stinson D.O. Date of Service: 12/16/23 Procedure(s): US OB anatomy Accession Number(s): [id number] cc: Juan C Stinson D.O.; Jay Sadler M.D. The [place] [id number] Patient Name: AALIYAH CARVALHO MRN: [facility]:[id number] date: 1995 Sex: F Assigned Patient Location: [facility] Current Patient Location: Accession/Order Number: [id number] Exam Date: 12/16/2023 14:39 Report Date: 12/17/2023 [...] M.D. Signed By: 12/17/2327 DD/ 3 TD/TT: Movie Editor:TBHRadiology, Radiologist, - 12/17/[address] [address] Ultrasound Report Signed Patient: AALIYAH CARVALHO MR#: [id number] : 1995 Acct:[id number] Age/Sex: 28 / F ADM Date: 12/16/23 Loc: [facility] Attending Dr: Juan C Stinson D.O. Ordering Physician: Juan C Stinson D.O. Date of Service: 12/16/23 Procedure(s): US OB anatomy Accession Number(s): [id number] cc: Juan C Stinson D.O.; Jay Sadler M.D. The [address] [address] Patient Name: AALIYAH CARVALHO MRN: [id number] date: 1995 Sex: F Assigned Patient Location: [facility] Current Patient Location: Accession/Order Number: [id number] Exam Date: 12/16/2023 14:39 Report Date: 12/17/2023 [...] M.D. Signed By: 12/17/23626 DD/ 3 TD/TT: Movie Editor: JOSE Chopra OB CERVICAL LENGTHon 24-34-3054SkyW[place] [address] Ultrasound Report Signed Patient: AALIYAH CARVALHO MR#: [id number] : 1995 Acct:[id number] Age/Sex: 28 / F ADM Date: 12/16/23 Loc: [facility] Attending Dr: Juan C Stinson D.O. Ordering Physician: Juan C Stinson D.O. Date of Service: 12/16/23 Procedure(s): US OB cervical length Accession Number(s): [id number] cc: Juan C Stinson D.O.; Jay Sadler M.D. [place] [address] Patient Name: AALIYAH CARVALHO MRN: [id number] date: 1995 Sex: F Assigned Patient Location: [facility] Current Patient Location: Accession/Order Number: [id number] Exam Date: 12/16/2023 14:39 Report Date: 12/17/2023 [...] M.D. Signed By: 12/17/23626 DD/ 3 TD/TT: Movie Editor:TBHRadiology, Radiologist, - 12/17/2023 [place] [address] Ultrasound Report Signed Patient: AALIYAH CARVALHO MR#: [id number] : 1995 Acct:[id number] Age/Sex: 28 / F ADM Date: 12/16/23 Loc: [facility] Attending Dr: Juan C Stinson D.O. Ordering Physician: Juan C Stinson D.O. Date of Service: 12/16/23 Procedure(s): US OB cervical length Accession Number(s): [id number] cc: Juan C Stinson D.O.; Jay Sadler M.D. [place] [id number] Patient Name: AALIYAH CARVALHO MRN: [id number] date: 1995 Sex: F Assigned Patient Location: [facility] Current Patient Location: Accession/Order Number: [id number] Exam Date: 12/16/2023 14:39 Report Date: 12/17/2023 [...] M.D. Signed By: 12/17/23626 DD/ 3 TD/TT: Movie Editor: JOSE Chopra OB TRANSVAGINALoajmin 91-37-7053KszW[place], [place] [address] Ultrasound Report Signed Patient: AALIYAH CARVALHO MR#: [id number] : 1995 Acct:[id number] Age/Sex: 28 / F ADM Date: 09/18/23 Loc: US Attending Dr: Juan C Stinson D.O. Ordering Physician: Juan C Stinson D.O. Date of Service: 09/18/23 Procedure(s): US OB transvaginal Accession Number(s): [id number] cc: Juan C Stinson D.O.; Jay Sadler M.D. [place] [id number] Patient Name: AALIYAH CARVALHO MRN: [id number] date: 1995 Sex: F Assigned Patient Location: US Current Patient Location: Accession/Order Number: [id number] Exam Date: 09/18/2023 08:33 Report Date: 09/19/2023 [...] Signed By: 09/19/23 0018 DD/ 0015 TD/TT: Movie Editor:TBHRadiology, Radiologist, - 09/19/2023 [place] [address] Ultrasound Report Signed Patient: AALIYAH CARVALHO MR#: [id number] : 1995 Acct:[id number] Age/Sex: 28 / F ADM Date: 09/18/23 Loc: US Attending Dr: Juan C Stinson D.O. Ordering Physician: Juan C Stinson D.O. Date of Service: 09/18/23 Procedure(s): US OB transvaginal Accession Number(s): [id number] cc: Juan C Stinson D.O.; Jay Sadler M.D. The [place] [address] Patient Name: AALIYAH CARVALHO MRN: [id number] date: 1995 Sex: F Assigned Patient Location: US Current Patient Location: Accession/Order Number: [id number] Exam Date: 09/18/2023 08:33 Report Date: 09/19/2023 [...] Signed By: 09/19/23 0018 DD/ 001 TD/TT: Movie Editor: JOSE HealthcareRadiology Study observation (narrative)[facility] HealthcareUS OB TRANSVAGINALOrdered By: Radiologist Radiology on 45-78-1765RPYZ [employer] Work Phone: pap ACOG PANEL 2: 21 to 29on 12-24-2022..NormalThe [facility] Medical CenterComment on above:Performed By: #### [id number] #### [facility] [address] [place] [address] Dr. Narendra Thorne Gdln ACOG Ujfduld17-14CftxtxGfrBerger HospitalComment on above:Performed By: #### [id number] #### [facility] [address] [place] [address] Dr. Narendra FranksDIAGNOSIS:CommentPremier Health on above: Result Comment: NEGATIVE FOR INTRAEPITHELIAL LESION OR MALIGNANCY.Performed By: #### [id number] #### [facility] [address] [place] [address] Dr. Narendra FranksMethodology:CommentNoUC Medical Center on above: Result Comment: This liquid based ThinPrep(R) pap test was screened with the use of an image guided system.Performed By: #### [id number] #### [place] [address] Dr. Narendra FranksNote:CommentPremier Health on above:Result Comment: The Pap smear is a screening test designed to aid in the detection of premalignant and malignant conditions of the uterine cervix. It is not a diagnostic procedure and should not be used as the sole means of detecting cervical cancer. Both false-positive and false-negative reports do occur. .Performed By: #### [id number] #### [facility] [address] [place] [address] Dr. Narendra FranksPerformed by:CommentPremier Health on above: Result Comment: Yao Smith Medical Office Manager (ASCP)Performed By: #### [id number] #### [facility] [address] [place] [address] Dr. Narendra FranksReflex Criteria:CommentLima Memorial HospitalComascension st. jose[facility] on above:Result Comment: The HPV DNA reflex criteria were not met with this specimen result therefore, no HPV testing was performed. .Performed By: #### [id number] #### [facility] [address] [place] [address] Dr. Narendra FranksSpecimejamin adequacy:CommentPremier Health on above:Result Comment: Satisfactory for evaluation. Endocervical and/or squamous metaplastic cells (endocervical component) are present.Performed By: #### [id number] #### [facility] [address] [place] [address] Dr. Narendra Mcintyre AUTO DIFFon 36-55-2503PVTW #0.0 103/ulNormal0.0-0.1Summa HealthComment on above:Performed By: #### CBC #### [facility] [address] [place] [address] Dr. Narendra FranksBasophils/100 WBC (Bld)0.4 %Normal0.2-2.0[facility] Comment on above:Performed By: #### CBC #### [facility] [address] [place] [address] Dr. Narendra Mckeon #0.3 103/ulNormal0.0-0.7The [facility] CenterComasc[facility] on above: Performed By: #### CBC #### [facility] [address] [place] [address] Dr. Narendra Luisosinophils/100 WBC (Bld)3.5 %Normal0.9-7.0[facility] Comment on above:Performed By: #### CBC #### [facility] [address] [place] [address] Dr. Narendra Luisrythrocyte distribution width (RBC) [Ratio]14.1 %Fnfkpx38.0-15.0 Summa HealthComment on above:Performed By: #### CBC #### [facility] [address] [place] [address] Dr. Narendra FranksHematocrit (Bld) [Volume fraction]38.2 %Miirvc08.0-48.0The [facility] Medical CenterComment on above:Performed By: #### CBC #### [facility] [address] [place] [address] Dr. Narendra FranksHemoglobin (Bld) [Mass/Vol]12.6 g/yGUwomjt70.0-16.0The [facility] Medical CenterComment on above:Performed By: #### CBC #### [facility] [address] [place] [address] Dr. Narendra Magana #0.01 10e3/ulNormal0.00-0.03The [facility] Medical CenterComment on above:Performed By: #### CBC #### [facility] [address] [place] [address] Dr. Narendra Magana %0.1 %Normal0.0-0.5The [facility] Medical CenterComment on above: Performed By: #### CBC #### [facility] [address] [place] [address] Dr. Narendra Hogan #2.4 103/ulNormal1.2-3.8The [facility] Medical CenterComment on above:Performed By: #### CBC #### [facility] [address] [place] [address] Dr. Narendra Williamhocytes/100 WBC (Bld)30.4 %Axgusf67.5-60.0The [facility] Medical CenterComment on above:Performed By: #### CBC #### [facility] [address] [place] [address] Dr. Narendra AguilarUAL DIFF REQNONormalThe [facility] Medical CenterComment on above: Performed By: #### CBC #### [facility] [address] [place] [address] Dr. Narendra Bhatia (RBC) [Entitic mass]30.4 wgIpsieo41.7-34.0The [facility] CenterComment on above:Performed By: #### CBC #### [facility] [address] [place] [address] Dr. Narendra Keller (RBC) [Mass/Vol]33.0 g/yAFbnmem25.9-35.2The [facility] CenterComment on above:Performed By: #### CBC #### [facility] [address] [place] [address] Dr. Narendra KellerV (RBC) [Entitic vol]92.0 qBUbbpnf16.0-99.0The [facility] CenterComment on above:Performed By: #### CBC #### [facility] [address] [place] [address] Dr. Narendra Rivera #0.5 103/ulNormal0.3-0.8The [facility] Medical CenterComment on above:Performed By: #### CBC #### [facility] [address] [place] [address] Dr. Narendra Adamsocytes/100 WBC (Bld)6.3 %Normal1.7-12.0The [facility] Comment on above:Performed By: #### CBC #### [facility] [address] [place] [address] Dr. Narendra Kinney #4.7 103/ulNormal1.4-6.5The [facility] Medical CenterComment on above:Performed By: #### CBC #### [facility] [address] [place] [address] Dr. Narendra Mcgeeutrophils/100 WBC (Bld)59.3 %Ohowwf77.0-75.0The [facility] Medical CenterComment on above:Performed By: #### CBC #### [facility] [address] [place] [address] Dr. Narendra Kirkpatricklet mean volume (Bld) [Entitic vol]10.5 fLNormal9.5-13.5The [facility] CenterComment on above:Performed By: #### CBC #### [facility] [address] [place] [address] Dr. Narendra CarlinT272 103/qzMoojzh978-022Glx [facility] CenterComment on above: Performed By: #### CBC #### [facility] [address] [place] [address] Dr. Narendra SalmonC4.15 106/ulCritically low4.20-5.40The [facility] Medical CenterComment on above:Performed By: #### CBC #### [facility] [address] [place] [address] [address] Narendra FranksWBC8.0 103/ulNormal4.0-11.0The [facility] Medical CenterComment on above: Performed By: #### CBC #### [facility] [address] [place] [address] Dr. Narendra FranksCRPon 74-78-7716LTI [Mass/Vol]mg/LNormal<=1.0The [facility] Medical CenterComment on above:Performed By: #### CRP #### [facility] [address] [place] [address] Dr. Narendra FranksCT CSPINE WO CONon 35-06-1632BK CSPINE WO CONINDICATION: 26 years old; Female. [...] Electronically authenticated by: YESSENIA HICKEY Date: 2022-06-26 21:58NormLakeHealth TriPoint Medical CenterMONOon 04-41-3725Ssmlplkhu (Bld) [#/Vol]NegativeNormalNEGATIVE The [facility] CenterComment on above:Performed By: #### MONO, PREG #### [facility] [address] [place] [address] [address] Narendra FranksPREG HCG QUALon 51-05-0217CGTJGDXGU, QUALNegativeNormalNEGATIVE The [facility] CenterComment on above:Performed By: #### MONO, PREG #### [facility] [address] [place] [address] [address] Narendra FranksPROF CHEM 8 (BAS METB)on 90-21-6364Uuctw gap [Moles/Vol]9.8 mmol/LNormalThe Glenbeigh Hospitalment on above:Performed By: #### BMP #### [facility] [address] [place] [address] [address] Narendra FranksCalcium [Mass/Vol]8.5 mg/dLNormal8.5-10.1[facility] Comment on above:Performed By: #### BMP #### [facility] [address] [place] [address] [address] Narendra FranksChloride [Moles/Vol]104 mmol/TBmnzsz03-395GfqSumma Health Comment on above:Performed By: #### BMP #### [facility] [address] [place] [address] [address] Narendra FranksCO2 [Moles/Vol]28.0 mmol/EVhfzux11.0-32.0[facility] Comment on above:Performed By: #### BMP #### [facility] [address] [place] [address] Dr. Narendra FranksCreatinine [Mass/Vol]0.77 mg/dLNormal0.55-1.02Summa HealthComment on above:Performed By: #### BMP #### [facility] [address] [place] [address] Dr. Narendra LuisGFR-AF TONGAN>60Normal>=60Summa HealthComment on above:Performed By: #### BMP #### [facility] [address] [place] [address] Dr. Narendra LuisGFR-NON AF TONGAN>60Normal>=60Summa HealthComment on above:Performed By: #### BMP #### [facility] [address] [address] [address] Narendra FranksGlucose [Mass/Vol]90 mg/yYCxtldz97-979QlhSumma Health Comment on above:Performed By: #### BMP #### [facility] [address] [place] [address] Dr. Narendra FranksPotassium [Moles/Vol]3.8 mmol/LNormal3.5-5.1The [facility] Comment on above:Performed By: #### BMP #### [facility] [address] [place] [address] Dr. Narendra FranksSodium [Moles/Vol]138 mmol/ROdrwta711-175YmcSumma Health Comment on above:Performed By: #### BMP #### [facility] [address] [place] [address] [address] Narendra Jerez nitrogen [Mass/Vol]15.0 mg/dLNormal7.0-18.0The [facility] CenterComment on above:Performed By: #### BMP #### [facility] [address] [address] [address] Narendra FranksUrea nitrogen/Creatinine [Mass ratio]19.5 mg/mgNormalThe [facility] Medical CenterComment on above:Performed By: #### BMP #### [facility] [address] [place] [address] [address] Narendra Mckinley RATE WESTERGRENon 04-52-9492KSP RATE25 mm/hrCritically high <=20The [facility] CenterComment on above:Performed By: #### SEDR #### [facility] [address] [place] [address] [address] Narendra Robb WITH REFLEX TO ENAon 57-69-4428ULC WITH REFLEX TO ENANegative NormalNEGATIVERaritan Bay Medical CenterComment on above:Performed By: #### CYNTHIA #### [facility] [address] [place], [place] [address]S-[id number] PROTEINon 18-44-9600SFM [Mass/Vol]mg/LNormalRaritan Bay Medical CenterComment on above:Result Comment: REF VALUE < 1.00Performed By: #### CRP #### [facility] [address] [place], [place] [address]PLHETWBLPA ANTIBODYon 11-03-5540GLEWXHLRUK ANTIBODY<1NormalRaritan Bay Medical CenterComment on above:Result Comment: THE TEST FOR ANTIBODIES [...] >=3 U/MLPerformed By: #### CITAB #### [facility] [address] [place], [place] [id number] TYPINGon 24-83-4446OZA-B27 TYPINGNegativeNormalUH Rut[facility] Behavioral HealthcareComment on above:Result Comment: This test was developed without FDA review. The test performance characteristics were defined and validated by the [facility] HLA Laboratory Department of Pathology, under the accreditation guidelines of [facility].Performed By: #### HLB27 #### [facility] [address] [place], [place] [id number] FACTORon 67-74-0270ZIHUSTQFCJ FACTOR<46Khsjpe9 - 15Raritan Bay Medical CenterComment on above:Performed By: #### RF #### [facility] [address] [place], [place] [id number] RATE, ERYTHROCYTEon 55-74-3623NTMRPLKMWUKPB RATE, ERYTHROCYTE2 mm/hNormal0 - 20Raritan Bay Medical CenterComment on above: Performed By: #### ESRWS #### [facility] [address] [place] [address] Vital Signs Date TimeVital SignValuePerforming UgevyzrplMyfcgspt55-49-2636 09:33-0400Body .2 cmAnthony Cainher DPM Work Phone: [phone]08-11-2025 09:33-0400Body mass index (BMI) [Ratio]32.89 kg/s5Pdmlcnu Rusher DPM Work Phone: [phone]08-11-2025 09:33-0400Body twkytv92.25 kgAnthdaniel Rusher DPM Work Phone: [phone]01-23-2025 15:33-0500Diastolic blood ezqbnksb33 mm[Hg]Cynthia Caro MD Work Phone: [facility]01-23-2025 15:33-0500Heart rate 91 /minCynthia Caro MD Work Phone: [facility]01-23-2025 15:33-0500Systolic blood xodbzbnv710 mm[Hg]Cynthia Caro MD Work Phone: [facility]01-23-2025 15:31-0500Body maitmx515.2 Luis Caro MD Work Phone: [facility] RECUPYL Stxczs54-26-8482 15:31-0500Body mass index (BMI) [Ratio]33.14 kg/v6WmlftCynthia Caro MD Work Phone: [facility] Zkztmv26-17-3154 15:31-0500Body xbghib60.98 kgCynthia Caro MD Work Phone: [facility]10-17-2024 10:09-0400Diastolic blood chyiawuv104 mm[Hg]Cynthia Caro MD Work Phone: [facility]10-17-2024 10:09-0400Heart rate 83 /minCynthia Caro MD Work Phone: [facility]10-17-2024 10:09-0400Systolic blood yfehuqsi646 mm[Hg]Cynthia Caro MD Work Phone: [facility]10-17-2024 10:06-0400Body .2 Luis Caro MD Work Phone: [facility] Jztpkf09-09-7578 10:06-0400Body mass index (BMI) [Ratio]32.69 kg/f4JovrsCynthia Caro MD Work Phone: [facility] Zwcjrf75-31-9295 10:06-0400Body lsudgu47.67 kgCynthia Caro MD Work Phone: [facility]10-08-2024 11:10-0400Body mass index (BMI) [Ratio]32.58 kg/m2Sharon STEVENS Work Phone: [facility] HospitalDvlfyvpfpj26-43-8396 11:10-0400Body viqncc79.35 kgSharon STEVENS Work Phone: [facility] HospitalVcrmcaapxj47-23-3113 11:10-0400Diastolic blood fmuzlrdb07 mm[Hg]Sharon STEVENS Work Phone: [phone] [place], [place] [address]Razaydhobq41-40-0302 11:10-0400Systolic blood byrpkxxs942 mm[Hg]Sharon Yo PA Work Phone: [facility] HospitalZhomhcdagt61-60-0885 11:30-0400Body obkovd179.2 Rachell Yo PA Work Phone: [facility] HospitalVuvglcgipb84-16-0166 11:30-0400Body mass index (BMI) [Ratio]32.26 kg/m2Sharon Yo PA Work Phone: [facility] HospitalQuyoyzxyyq61-68-2622 11:30-0400Body hmgogc56.44 kgSharon Yo PA Work Phone: [facility] HospitalWlyeljrqhf08-46-3175 11:30-0400Diastolic blood yrkfhqpr07 mm[Hg]Sharon Yo PA Work Phone: [facility] HospitalZugkgskpqw31-84-4412 11:30-0400Systolic blood wbmyqrkq874 mm[Hg]Sharon Yo PA Work Phone: [facility] HospitalRqcrqwbpce70-02-5033 09:05-0400Body obdake214.18 Matt Claros Other [employer] Other 09-09-2023 09:05-0400Body mass index (BMI) [Ratio] 29.19 kg/f7RyphcValeria Claros Other [employer] Other 09-09-2023 09:05-0400Body yestzwiuyzc64.5 [degF]Valeria Claros Other [employer] Other 09-09-2023 09:05-0400Body omejmz42.55 kgValeria Claros Other [employer] Other 09-09-2023 09:05-0400Diastolic blood fuivgxpm52 mm[Hg] Valeria Claros Other [employer] Other 09-09-2023 09:05-0400Respiratory rate18 /minValeria Claros Other [place] [employer] Other 09-09-2023 09:05-2273RuA3% (BldA) [Mass fraction]98 % Valeria Claros Other [place] [employer] Other 09-09-2023 09:05-0400Systolic blood ejeehzwj651 mm[Hg] Valeria Claros Other [facility] [employer] Other Encounters Encounter DateEncounter TypeCare ProviderFacilityStart: 07-26-2025 End: 86-02-5568jjlxnvxzbzMruvgwa R NILLFacility:[facility] HealthcareevueStart: 07-26-2025 End: 58-28-5502Spbumlx encounter procedureMichael R NILL [phone]-NctbaKettering Health [facility] Start: 16-34-3693mkdqvmuppaWyruoij NILLFacility:[facility] HealthcareKrissytart: 05-08-2025 End: 18-10-3463Wziamc flowsheetAnthony S Rusher DPM Work Phone: noSt. [facility] PodiatryStart: 05-08-2025 End: 09-93-3851Ppndui flowsheetAnthony S Rusher DPM Work Phone: noVer[employer] [place] PodiatryStart: 05-08-2025 End: 84-69-0238Vikvag outpatient new 30 minutesAnthony S Rusher DPM Work Phone: noSt. [facility] Hospital PodiatryComment on above:Valgus deformity, not elsewhere classified, left ankle (Primary Dx); Posterior tibial tendinitis of left lower extremity; Posterior tibial tendinitis of right lower extremity; Instability of left ankle joint; Equinus contracture of left ankle; Difficulty walking; Sinus tarsi syndrome of left footStart: 05-08-2025 End: 40-00-3858wpjzficxsiWFZGCSG S RUSHERNot AvailableStart: 10-20-2024 End: 33-40-8917Vkeuyl outpatient visit 25 minutesCynthia Caro MD Work Phone: [facility] Comment on above:Autosomal dominant polycystic kidney disease (Primary Dx)Start: 10-19-2024 End: 46-78-4506Nnmitehdf encounterScanning Provider [facility] HospitalN [facility] BremertonoStart: 10-14-2024 End: 46-96-9904Yerbzyjkq encounterBropearl Tena [facility] BremertonoStart: 10-11-2024 End: 94-28-1663xhymuwpfviKICNIVi CAROThe Christ Hospital HospitalStart: 07-19-2024 End: 92-35-5335kaqupmlcffUOJSVRyan CAROThe Christ Hospital HospitalStart: 07-14-2024 End: 82-02-8414Azectl outpatient new 45 Rosalba Caro MD Work Phone: [facility] Comment on above:Autosomal dominant polycystic kidney disease (Primary Dx); PKD (polycystic kidney disease)Start: 07-13-2024 End: 88-28-8524izslmfeeveVRCSKVi CAROThe Christ Hospital HospitalStart: 07-06-2024 End: 56-46-1928Smkjdrrge encounterHuma Tena [facility] BremertonoStart: 07-05-2024 End: 43-04-0223Bqnkru Diego STEVENS Work Phone: noMS BCP OBStart: 07-05-2024 End: 59-86-6950Zojaow Diego STEVENS Work Phone: [facility] BCP OBStart: 07-05-2024 End: 47-41-0185Oihupqmzx Result Justino STEVENS Work Phone: NOVO External Department UnsolicitedStart: 07-05-2024 End: 23-46-1346Urjcbjb encounter procedureSharon STEVENS Work Phone: NOW[facility] HealthcareStart: 07-05-2024 End: 50-22-9076Fyyzbwry preventive med est patient 18-39 yrsSharon STEVENS Work Phone: noms BCP OBComment on above:Well woman exam with routine gynecological examStart: 07-05-2024 End: 12-39-4722qddxgoxrgdQAH RAMEYNot AvailableStart: 05-17-2024 End: 98-70-2776xtkpzpsktvRAD RAMEYNot AvailableStart: 05-17-2024 End: 02-10-0495Btdaxxbsfk care visitSharon STEVENS Work Phone: noms BCP OBComment on above:6 weeks follow- up (Primary Dx)Start: 04-21-2024 End: 97-85-5781Mnpury Kelvin Caro MD Work Phone: PHD [facility] Comment on above:PKD (polycystic kidney disease) (Primary Dx)Start: 04-18-2024 End: 54-22-2295Mfjsssqny encounterScanning Provider ExternalPHN [facility] Centertart: 03-30-2024 End: 35-55-9975Rvjbjzmbh Result EncounterCorey Shantell DO Work Phone: noms External Department UnsolicitedStart: 03-30-2024 End: 22-30-8207Seslpqsdu Result EncounterCorey Shantell DO Work Phone: noms External Department UnsolicitedStart: 03-23-2024 End: 85-96-2551Exjhhqrlx Result EncounterCorey Shantell DO Work Phone: noms External Department UnsolicitedStart: 03-23-2024 End: 48-37-8239Bkfoontbm Result EncounterCorey Shantell DO Work Phone: noms External Department UnsolicitedStart: 03-16-2024 End: 10-28-1208Lsslvdwfg Result EncounterCorey Shantell DO Work Phone: noms External Department UnsolicitedStart: 03-16-2024 End: 25-68-2185Ggebyjtex Result EncounterCorey Shantell DO Work Phone: noms External Department UnsolicitedStart: 03-01-2024 End: 53-80-7175Wlvtyjxub Result EncounterCorey Shantell DO Work Phone: noms External Department UnsolicitedStart: 03-01-2024 End: 20-13-0328Huihipqlc Result EncounterCorey Shantell DO Work Phone: noms External Department UnsolicitedStart: 12-17-2023 End: 18-71-4734Jrvhdbzpb Result EncounterCorey Shantell DO Work Phone: noms External Department UnsolicitedStart: 12-17-2023 End: 80-18-3912Ucvlfgjyk Result EncounterCorey Shantell DO Work Phone: noms External Department UnsolicitedStart: 09-19-2023 End: 70-53-4936Feefsjtcs Result EncounterCorey Shantell DO Work Phone: noms External Department UnsolicitedStart: 09-19-2023 End: 71-90-8382Euuagjnrl Result EncounterCorey Shantell DO Work Phone: noms External Department UnsolicitedStart: 06-06-2023 End: 26-71-5008ltimglnifaYaoss Keller Other [facility] [employer] Other Start: 33-35-2293Toqcrn outpatient new 20 minutesAmber HarlanFPG Urgent Care ClydeStart: 12-17-2022 End: 04-54-5170fwquoucpugAT JUAN C SHANTELL .Facility:D1Ntans: 06-26-2022 End: 58-85-7842pthqmkzzrtSJ NONE LISTED REQUESTFacility:H1 Procedures DateProcedureProcedure DetailPerforming ClinicianStart: 05-08-2025 End: 28-48-6435Seyemayngd examination ankle 2 viewsAnthony S Rusher DPM Work Phone: Start: 01-43-4991Ocqgnucnqi examination ankle 2 views Db Crockett DPM Work Phone: Start: 11-27-9474GPP,APTIMA HPV,AGE GDLNAmy Alex PA Work Phone: Start: 90-84-9798Ltzmkmimqkl observation [Identifier] in Cervix by Cyto Nasim Caro MD Work Phone: Start: 83-36-6568XTU URINE T PROTEIN CREAT RATIOCorey Shantell DO Work Phone: Start: 14-44-6887MXS BUNCorey Shantell DO Work Phone: Start: 09-46-1985RWL CBC WITH AUTO DIFFCorey Shantell DO Work Phone: Start: 93-94-8253FRM URIC ACIDCorey Shantell DO Work Phone: Start: 82-02-5736QQI ALTCorey Shantell DO Work Phone: Start: 51-73-3022TSN APTTCorey Shantell DO Work Phone: Start: 20-61-1235HNE ASTCorey Shantell DO Work Phone: Start: 78-48-5473AUEB FIBRINOGENCorey Shantell DO Work Phone: Start: 15-09-2334XWBUWQ PROTHROMBIN TIME INR W/O COUM Juan C Shantell DO Work Phone: Start: 46-24-3701KLU CREATININECorey Shantell DO Work Phone: Start: 04-88-0430RPN DRUG SCREEN RAPID (URINE)Juan C Shantell DO Work Phone: Start: 93-52-4900CZ OB GROWTHCorey Shantell DO Work Phone: Start: 50-84-2682QD OB BPP W NON-STRESSCorey Shantell DO Work Phone: Start: 58-50-6404BO OB BPP W NON-STRESSCorey Shantell DO Work Phone: Start: 80-42-8735EA OB BPP W NON-STRESSCorey Shantell DO Work Phone: Start: 02-96-5834ZG OB GROWTHCorey Shantell DO Work Phone: Start: 47-51-7307FD OB ANATOMYCorey Shantell DO Work Phone: Start: 07-36-2245TZ OB CERVICAL LENGTHCorey Shantell DO Work Phone: Start: 43-47-1253DY OB TRANSVAGINALCorey Shantell DO Work Phone: Start: 89-07-7274UboxntghqbaXspoezz NILL Start: 44-39-6685OvfdlgepmbwrhxptxxnjkcuhjpBlsrycp NILL Excision of lipoma of backMichael NILL LaparoscopyMichael NILL Tonsillectomy and adenoidectomyMichael NILL Plan of Treatment DateCare ActivityDetailAuthorStart: 87-90-3141OSiG,Tdap and Td Vaccines (2 - Tdap)DTaP,Tdap and Td Vaccines (2 - Tdap)[facility] SystemStart: 50-96-6954Exlduegwc for malignant neoplasm of cervixPap SmearProMedica RECUPYL SystemStart: 08-09-2025 End: 04-61-1308Nscsnxz encounter /12/2025 3:00 PM EST Procedure Visit [facility] [address] [place] [id number] Sharon Yo PA [address] [place] [address] JO[facility] Elkins OBGYNStart: 70-85-4840Lbmjx BMI ScreeningAdult BMI ScreeningAtrium Health Union Westtart: 05-08-2025 End: 67-91-1887Qfufnalqhrvd / ancillary services managementNOSt. Mary's Hospital [facility]iat[facility] Start: 05-08-2025 End: 31-64-0254Wvskfnf encounter rstmzxime63/11/2025 9:30 AM EDT Office Visit [facility] [address] [place] [address] Db Crockett, DPSamuel [address] [place] [address] ArrivedNOSt. Mary's Hospital PodiatryComment on above:ArrivedStart: 04-14-2025 End: 23-98-4908Jparx metabolic 2000 panel - Serum or PlasmaBasic Metabolic Panel Lab Routine Autosomal dominant polycystic kidney disease Expected: 04/14/2025 (Approximate), Expires: 10/15/2025PHN [facility] Work Phone: Comment on above:Expected: 04/14/2025 (Approximate), Expires: 10/15/2025Start: 04-14-2025 End: 09-71-8770EKQ panel - Blood by Automated countCBC without diff Lab Routine Autosomal dominant polycystic kidney disease Expected: 04/14/2025 (Approximate), Expires: 10/15/2025ProPrem[facility] SystemComment on above:Expected: 04/14/2025 (Approximate), Expires: 10/15/2025Start: 04-14-2025 End: 83-28-4103Pbkgedmzl [Mass/volume] in Serum or PlasmaMagnesium Lab Routine Autosomal dominant polycystic kidney disease Expected: 04/14/2025 (Approximate), Expires: 10/15/2025ProPrem[facility] SystemComment on above:Expected: 04/14/2025 (Approximate), Expires: 10/15/2025Start: 04-14-2025 End: 72-48-4842Iyefloufomt Hormone, intactParathyroid Hormone, intact Lab Routine Autosomal dominant polycystic kidney disease Expected: 04/14/2025 (Approximate), Expires: 10/15/2025[facility] SystemComment on above: Expected: 04/14/2025 (Approximate), Expires: 10/15/2025Start: 04-14-2025 End: 68-51-9215Vtknvklmn [Mass/volume] in Serum or PlasmaPhosphorus Lab Routine Autosomal dominant polycystic kidney disease Expected: 04/14/2025 (Approximate), Expires: 10/15/2025Pro[facility] SystemComment on above:Expected: 04/14/2025 (Approximate), Expires: 10/15/2025Start: 04-14-2025 End: 56-42-2684Lqmoudv creat ratioProtein creat ratio Lab Routine Autosomal dominant polycystic kidney disease Expected: 04/14/2025 (Approximate), Expires: 10/15/2025ProPrem[facility] SystemComment on above:Expected: 04/14/2025 (Approximate), Expires: 10/15/2025Start: 04-14-2025 End: 02-08-4443Edowzzp D 25 hydroxyVitamin D 25 hydroxy Lab Routine Autosomal dominant polycystic kidney disease Expected: 04/14/2025 (Approximate), Expires: 10/15/2025[facility] SystemComment on above:Expected: 04/14/2025 (Approximate), Expires: 10/15/2025Start: 10-20-2024 End: 77-98-1076Btxhptf encounter sdkihhsjo61/23/2025 3:30 PM EST Office Visit [facility] [address] [place] [phone] Cynthia Caro MD [address] [place] [address] [facility]: 09-08-2024 End: 16-82-7996Ggteq metabolic 2000 panel - Serum or PlasmaBasic Metabolic Panel Lab Routine Autosomal dominant polycystic kidney disease Expected: 09/08/2024, Expires: 07/09/2025[facility] HospitalComment on above:Expected: 09/08/2024, Expires: 07/09/2025Start: 09-08-2024 End: 51-24-9041IGS panel - Blood by Automated countCBC without diff Lab Routine Autosomal dominant polycystic kidney disease Expected: 09/08/2024, Expires: 07/09/2025[facility] HospitalComment on above:Expected: 09/08/2024, Expires: 07/09/2025Start: 09-08-2024 End: 20-93-9196Abelyqvkc [Mass/volume] in Serum or PlasmaMagnesium Lab Routine Autosomal dominant polycystic kidney disease Expected: 09/08/2024, Expires: [facility] HospitalComment on above:Expected: 09/08/2024, Expires: 07/09/2025Start: 09-08-2024 End: 35-19-4713Mcffenzkqse Hormone, intactParathyroid Hormone, intact Lab Routine Autosomal dominant polycystic kidney disease Expected: 09/08/2024, Expires: 07/09/2025[facility] HospitalComment on above:Expected: 09/08/2024, Expires: 07/09/2025Start: 09-08-2024 End: 96-28-7268Jsmpxqutc [Mass/volume] in Serum or PlasmaPhosphorus Lab Routine Autosomal dominant polycystic kidney disease Expected: 09/08/2024, Expires: 1 [facility] HospitalComment on above:Expected: 09/08/2024, Expires: 07/09/2025Start: 09-08-2024 End: 18-86-1284Eewnxfx creat ratioProtein creat ratio Lab Routine Autosomal dominant polycystic kidney disease Expected: 09/08/2024, Expires: 07/09/2025 [facility] HospitalComment on above:Expected: 09/08/2024, Expires: 07/09/2025Start: 09-08-2024 End: 01-63-8760Qqovcvm D 25 hydroxyVitamin D 25 hydroxy Lab Routine Autosomal dominant polycystic kidney disease Expected: 09/08/2024,Expires: 07/09/2025 [facility] SystemComment on above:Expected: 09/08/2024, Expires: 07/09/2025Start: 07-21-2024 End: 92-97-2332GON Abdominal vessels WO contrastMRA abdomen without contrast Imaging Routine Autosomal dominant polycystic kidney disease Expected:07/21/2024 (Approximate), Expires: 07/14/2025[facility] SystemComment on above: Expected: 07/21/2024 (Approximate), Expires: 07/14/2025Start: 07-16-2024 End: 61-31-0754ZVO Screen w/ ReflexANA Screen w/ Reflex Lab Routine Autosomal dominant polycystic kidney disease Expected: 07/16/2024 (Approximate), Expires: 07/09/2025[facility] SystemComment on above:Expected: 07/16/2024 (Approximate), Expires: 07/09/2025Start: 07-16-2024 End: 18-71-7902Ibvk light chainsFree light chains Lab Routine Autosomal dominant polycystic kidney disease Expected: 07/16/2024 (Approximate), Expires: 07/09/2025[facility] SystemComment on above:Expected: 07/16/2024 (Approximate), Expires: 07/09/2025Start: 07-16-2024 End: 97-15-2941Gfavyujals basement membrane IgG ABGlomerular basement membrane IgG AB Lab Routine Autosomal dominant polycystic kidney disease Expected: 07/16/2024 (Approximate), Expires: 07/09/2025[facility] SystemComment on above:Expected: 07/16/2024 (Approximate), Expires: 07/09/2025Start: 07-16-2024 End: 25-39-1591Uixhxagmx B core antibody, totalHepatitis B core antibody, total Lab Routine Autosomal dominant polycystic kidney disease Expected:07/16/2024 (Approximate), Expires: 07/09/2025[facility] SystemComment on above: Expected: 07/16/2024 (Approximate), Expires: 07/09/2025Start: 07-16-2024 End: 23-86-2202Cfwqncezj B Surface Antibody QuantitationHepatitis B Surface Antibody Quantitation Lab Routine Autosomal dominant polycystic kidney disease E xpected: 07/16/2024 (Approximate), Expires: 07/09/2025[facility] Comment on above:Expected: 07/16/2024 (Approximate), Expires: 07/09/2025Start: 07-16-2024 End: 64-91-4722Nkkuphpyl B surface antigenHepatitis B surface antigen Lab Routine Autosomal dominant polycystic kidney disease Expected: 07/16/2024 (Approximate), Expires: 07/09/2025[facility] SystemComment on above: Expected: 07/16/2024 (Approximate), Expires: 07/09/2025Start: 07-16-2024 End: 80-52-5001Dqyimphfb C(HCV) Ab w/ Reflex to PCRHepatitis C(HCV) Ab w/ Reflex to PCR Lab Routine Autosomal dominant polycystic kidney disease Expected: 07/16/2024 (Approximate), Expires: 07/09/2025[facility] SystemComment on above:Expected: 07/16/2024 (Approximate), Expires: 07/09/2025Start: 07-16-2024 End: 50-71-3622NWT 1&2 AB/AG Screen (P24 AG)HIV 1&2 AB/AG Screen (P24 AG) Lab Routine Autosomal dominant polycystic kidney disease Expected: 07/16/2024 (Approximate), Expires: 07/09/2025[facility] SystemComment on above: Expected: 07/16/2024 (Approximate), Expires: 07/09/2025Start: 07-16-2024 End: 60-49-3089Fbfucdtbxcgmpga ABMyeloperoxidase AB Lab Routine Autosomal dominant polycystic kidney disease Expected: 07/16/2024 (Approximate), Expires: 07/09/2025[facility] SystemComment on above:Expected: 07/16/2024 (Approximate), Expires: 07/09/2025Start: 07-16-2024 End: 19-75-8136Extatehpdp 3 AB ED9Qghblvhwah 3 AB PR3 Lab Routine Autosomal dominant polycystic kidney disease Expected: 07/16/2024 (Approximate), Expires: 07/09/2025[facility] SystemComment on above:Expected: 07/16/2024 (Approximate), Expires: 07/09/2025Start: 07-16-2024 End: 46-41-6246VT RetroperitoneumUltrasound retroperitoneal complete Imaging Routine Autosomal dominant polycystic kidney disease Expected: 07/16/2024 (Approximate), Expires: 09/08/2024[facility] Work Phone: Comment on above:Expected: 07/16/2024 (Approximate), Expires: 09/08/2024Start: 07-14-2024 End: 62-56-5500Jybcqux encounter procedurePHN [facility] FremontStart: 07-05-2024 End: 39-41-8520Aoevokt encounter procedureNOMS BCP OBComment on above:Arrived Start: 28-48-3033Gdxjblqob vaccinationInfluenza VaccineSt. John of God Hospital Start: 47-50-0339Dgpmjxmpa for malignant neoplasm of cervixPap SmearWooster Community Hospital SystemStart: 85-92-1293LFkV,Tdap and Td Vaccines (1 - Tdap)DTaP,Tdap and Td Vaccines (1 - Tdap)[facility]art: 55-12-6984Kzcan BMI Follow Up PlanAdult BMI Follow Up PlanAtrium Health Union Westtart: 77-62-5608Wrken BMI ScreeningAdult BMI ScreeningAtrium Health Union Westtart: 35-58-0360Spjfmjiqxq ScreeningDepression ScreeningAtrium Health Union Westtart: 11-88-5550Fuvollx ScreeningTobacco ScreeningSt. John of God Hospital End: 24-97-0868Tolia metabolic 2000 panel - Serum or PlasmaBasic Metabolic Panel Lab Routine PKD (polycystic kidney disease) 1 Occurrences starting 04/21/2024 until 04/21/2025[facility] Work Phone: Comment on above:1 Occurrences starting 04/21/2024 until 04/21/2025 End: 43-29-3230YBN panel - Blood by Automated countCBC without diff Lab Routine PKD (polycystic kidney disease) 1 Occurrences starting 04/21/2024 until 04/21/2025[facility] SystemComment on above:1 Occurrences starting 04/21/2024 until 04/21/2025ytology Cervical or vaginal smear or scraping study Pap Smear Pathology and Cytology Routine Well woman exam with routine gynecological exam Ordered: 07/05/2024[facility] [employer] Work Phone: comment on above:Ordered: 07/05/2024 End: 82-99-3795Eyzrvbjmjzh Neutrophilic Ab, SCytoplasmic Neutrophilic Ab, S Lab Routine Autosomal dominant polycystic kidney disease 1 Occurrences starting 07/14/2024 until 07/09/2025[facility] SystemComment on above:1 Occurrences starting 07/14/2024 until 07/09/2025 End: 53-43-7051Tyjpanosq [Mass/volume] in Serum or PlasmaMagnesium Lab Routine PKD (polycystic kidney disease) 1 Occurrences starting 04/21/2024 until 2024ProReg[facility] Hospital CompanyComment on above:1 Occurrences starting 04/21/2024 until 04/21/2025 End: 65-13-1844Dytslwjua [Mass/volume] in Serum or PlasmaPhosphorus Lab Routine PKD (polycystic kidney disease) 1 Occurrences starting 04/21/2024 until 04/21[facility] SystemComment on above:1 Occurrences starting 04/21/2024 until 04/21/2025 End: 18-64-2132Yhopcpw creat ratioProtein creat ratio Lab Routine PKD (polycystic kidney disease) 1 Occurrences starting 04/21/2024 until 04/21/2025 [facility] SystemComment on above:1 Occurrences starting 04/21/2024 until 04/21/2025 End: 83-08-1090Hjzci ImmunofixationSerum Immunofixation Lab Routine Autosomal dominant polycystic kidney disease 1 Occurrences starting 07/14/2024 until 07/09/2025[facility] SystemComment on above:1 Occurrences starting 07/14/2024 until 07/09/2025 End: 74-46-5822IjsxjfndekCcdjooslpc Lab Routine Autosomal dominant polycystic kidney disease 1 Occurrences starting 10/20/2024 until 10/15/2025ProPrem[facility] Health [facility] Center SystemComment on above:1 Occurrences starting 10/20/2024 until 10/15/2025 End: 15-91-6218ErtivqnazaQknjlbskln Lab Routine PKD (polycystic kidney disease) 1 Occurrences starting 04/21/2024 until 04/21/2025ProPrem[facility] Health At[facility] Medical Center SystemComment on above:1 Occurrences starting 04/21/2024 until 04/21/2025 End: 56-58-1635EhdqxtrfxtIprjvzfdrj Lab Routine Autosomal dominant polycystic kidney disease 1 Occurrences starting 07/14/2024 until 07/09/2025ProPrem[facility] Health At[facility] Center SystemComment on above:1 Occurrences starting 07/14/2024 until 07/09/2025 Immunizations Immunization DateImmunizationNotesCare OvqlromoGxvhxjll72-00-6103ttowrbzor virus vaccine, unspecified formulationCynthia Caro MD Work Phone: [facility] Payers DatePayer CategoryPayerPolicy [id number] Health Insurance [id number] Health Insurance [id number] Cross Blue Shield Managed Care - Other[place] [address] [id number] [facility]al [facility] Services 1.2.840.963123.1.13.693.2.7.9.682885.579008.04123-67-9201Cggrlyp 1.2.840.760025.1.13.693.2.7.3.485[id number] 2.16.840.1.994410.3.579.[id number] 2.16.840.1.947677.3.579.[id number] 2.16.840.1.679375.3.579.2.479[id number] 2.840.1.515205.3.57[id number] 2.16.840.1.690988.3.57[id number] 2.16.840.1.767830.3.57[id number] 2.840.1.940225.3.579.[id number] 2.16840.1.997319.3.579.[id number] 2.16.840.1.959069.3.579.[id number] 2.16840.1.569373.3.579.[id number] 2.840.1.661350.3.579.2.933022-03-8177Hqzybtd5781175 2.16840.1.644717.3.579.2.718[id number] 2.840.1.187763.3.579.[id number] Social History DateTypeDetailFacilityUnknown if ever smokedNoFanwards Other Start: 09-14-2023 End: 92-32-2374Ejl [facility] At [facility]: 09-09-2023 End: 15-27-8600Vrzjfvm smoking status NHISNever smoked tobaccoSTEWARD HEALTH CARE SYSTEM Healthcare Start: 73-37-4109Wyhiatu use and exposureSmokeless tobacco non-userNOMS HealthcareStart: 03-15-2024 End: 38-75-5717Rvupaohnm beverage intakeEx-drinker (finding)[facility] Start: 09-14-2023 End: 67-52-2813Qpyelta of Social functionNOMS HealthcareStart: 28-73-2232Qdmhebm CommentOnly on special occasionsNOMS HealthcareStart: 37-66-4990Rfm assigned at [facility] hospitalNot on fileSt. John of God HospitalTobacc smoking status NHISTobacco smoking consumption unknownWooster Community Hospital SystemStart: 81-64-4404OieUsfvca (finding)[facility] RECUPYL SystemStart: 72-78-8566Lkhxpcw smoking statusNever [facility] Hospitalexual OrientationSelect Medical Specialty [facility] [place] Start: 08-23-2023 End: 00-92-1287Yhosobny to SARS-CoV-2 (event)[facility] Clinical Notes 06-06-2023 to 07-26-2025 Note Date & XylbLifrFqjjtepd90-46-7025 NoteGeneral Surgery Office/Clinic Note Chief Complaint consultation [...] Mother. Polycystic kidney disease: Mother. Rheumatoid arthritis: Mother.[facility] Medical CenterComment on above:Result Comment: Electronically Signed By: SITA RUVALCABA, Yessenia Sanchez\Date and Time Signed: 07/26/25 16:00 ROB48-12-9158 History of Present illness Narrative* Db Crockett [...] 30-39.9) Other specified related conditions, unspecified trimester ([facility] Ovarian cyst PCK (polycystic kidney disease) TMJ [...] stresses across the midfoot. Patient has an bsxs-yic-lgrnezy insert in her shoe today that is [...] understanding. 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 Please contact me at [phone] (Office) or [phone] (Answering service) with any questions. CYNTHIA CARO MD [facility] This note was created with the assistance of a speech-recognition program. Although the intention is to generate a document that actually reflects the content of the visit, no guarantees can be provided that every mistake has been identified and corrected by editing. CYNTHIA CARO MD,PhD FACP [facility] ANY QUESTIONS FEEL FREE TO CALL: 1. OFFICE [phone] 2. ANSWERING SERVICE: [phone] documented in this encounterSt. John of God Hospital01-22-2025 Miscellaneous Notes* Telephone Encounter - vEa Moura - 10/19/2024 11:48 AM EST LM to see if pt could come in at 8:30 am tomorrow instead of 3:30 pm. documented in this encounterSt. John of God Hospital01-22-2025 Telephone encounter Note* Telephone Encounter - Eva Moura - 10/19/2024 11:48 AM EST LM to see if pt could come in at 8:30 am tomorrow instead of 3:[address] [facility]01-17-2025 Miscellaneous Notes* Telephone Encounter - Huma Tena CMA - 10/14/2024 3:33 PM EST Left message for patient to call the office back to confirm upcoming appointment 10/20 at 3:[address] Caro in [place] documented in this [facility]01-17-2025 Telephone encounter Note* Telephone Encounter - Huma Tena CMA - 10/14/2024 3:33 PM EST Left message for patient to call the office back to confirm upcoming appointment 10/20 at 3:[address] Caro in [place] [facility] Rmhhcx02-26-4721 History of Present illness Narrative* Cynthia Caro [...] results found for: IRONSAT , FERRITIN , FKUIUDEQ61 , FOLATE Mineral and Bone Labs: Lab [...] of your patients! Please contact me at [phone] (Office) or [phone] (Answering service) with any questions. CYNTHIA CARO MD [facility] This note was created with the assistance of a speech-recognition program. Although the intention is to generate a document that actually reflects the content of the visit, no guarantees can be provided that every mistake has been identified and corrected by editing. CYNTHIA CARO MD,PhD FACP [facility] ANY QUESTIONS FEEL FREE TO CALL: 1. OFFICE [phone] 2. ANSWERING SERVICE: [phone] documented in this encounterDayton Osteopathic [email or web address].com [facility] Veterans Affairs Medical CenterThknre58-74-9688 Miscellaneous Notes* Telephone Encounter - Huma Tena CMA - 07/06/2024 4:02 PM EDT Left voicemail for patient to return call to confirm upcoming appointment on 07/14 at 10:[address]o in [place] and Informed patient lab work need completed prior to uncoming appointment * Telephone Encounter - Eva Moura - 07/06/2024 4:02 PM EDT Pt called back and confirmed appt. Nephro- Delashi? ([facility] probably 5 or more years ago) Other Spec- No Echo- Spencer possibly Abd Img- No Labs- Going to [facility] 07/13/24 Reminders- Given documented in this encounterSt. John of God Hospital10-09-2024 Telephone encounter Note* Telephone Encounter - Huma Tena CMA - 07/06/2024 4:02 PM EDT Left voicemail for patient to return call to confirm upcoming appointment on 07/14 at 10:[address] Caro in [place] and Informed patient lab work need completed prior to uncoming appointment [facility]10-09-2024 Telephone encounter Note* Telephone Encounter - Eva Moura - 07/06/2024 4:02 PM EDT Pt called back and confirmed appt. Nephro- Delashi? ([facility] probably 5 or more years ago) Other Spec- No Echo- [place] possibly Abd Img- No Labs- Going to [facility] 07/13/24 Reminders- Given [facility]10-08-2024 History of Present illness Narrative* HILDA Rebolledo [...] nursing note reviewed. Exam conducted with a melt house drag operator present. Vitals: Estimated body mass index [...] behalf of: HILDA Rebolledo documented in this encounterProgress West HospitalBgcugjzbov12-86-7866 History of Present illness Narrative* HILDA Rebolledo [...] behalf of: HILDA Rebolledo documented in this encounterProgress West HospitalFeqgcmhhyg76-71-5606 Miscellaneous Notes* Telephone Encounter - Eva Moura - 04/18/2024 9:31 AM EDT LM to schedule new pt appt. documented in this encounterSt. John of God Hospital07-22-2024 Telephone encounter Note* Telephone Encounter - Eva Zeny - 04/18/2024 9:31 AM EDT LM to schedule new pt appt. [facility]06-04-2024 Miscellaneous Notes* Result Encounter Note - Randi Arteaga LPN - 03/01/2024 12:47 PM EDT Pt notified and is going to schedule growth scan for two weeks. She is also going to schedule for NST/BPP documented in this encounterProgress West HospitalTpqokwkuwo02-68-5572 Progress note* Result Encounter Note - Randi Arteaga LPN - 03/01/2024 12:47 PM EDT Pt notified and is going to schedule growth scan for two weeks. She is also going to schedule for NST/BPP [facility] [employer] Work Phone: 1(235) 774-845909-09-2023 Evaluation note* Encounter Date Diagnosis Assessment Notes [...] understanding and is agreeable with treatment plan ReelGenie Other Evaluation note* Diagnosis Well woman exam with routine gynecological exam Routine gynecological examination documented in this encounter [facility] HealthcareEvaluation note* Diagnosis 6 weeks follow-up- Primary [...] removed off backSurgical Historywisdom teeth extract Surgical Osuumvbcmvihwqsuvlw8391Vkyhdsob Vzvzceqvrtjhemrgnp9582Djaswofjclivfyk HistoryHTNHospitalization HistorymigraineHospitalization Historychild ftyjw3915 [facility] Other Hospital course Narrative No data available for this section [facility] Discharge instructions No data available for this section [facility] InstructionsNot on filedocumented in this encounter [facility] SystemInstructionsNot on filedocumented in this encounter [facility] SystemInstructionsNot on filedocumented in this encounter [facility] SystemProgress note No data available for this section [facility] Reason for visit Narrative* Consultation (Routine) - Pending ReviewSpecialtyDiagnoses / ProceduresReferred By ContactReferred To ContactNephrology Diagnoses PKD (polycystic kidney disease) Jay Sadler MD Phone: tel:[phone] fax: PHN [facility] [address] [place] [address] Phone: tel: fax: Referral IDStatusReasonStart DateExpiration DateVisits RequestedVisits [id number] Review Specialty Services Required [facility] Summary Purpose Family History No Family [...] section and content) DATE CREATED AUTHOR 07/19/2019 [facility] DATE CREATED AUTHOR AUTHOR'S ORGANIZ ATION 12/29/2022 [facility] DATE CREATED AUTHOR AUTHOR'S ORGANIZ ATION 10/15/[address] [facility] DATE CREATED AUTHOR AUTHOR'S ORGANIZ ATION 05/09/2025 [facility] DATE CREATED AUTHOR AUTHOR'S ORGANIZ ATION 07/28/2025 [facility] REASON FOR VISIT (unrecogniz ed section [...] DateEnd Date Jay Sadler MD [address] [place] [address] PCP - GeneralFamily Vjjwikxh69/2/23Team MemberRelationshipSpecialtyStart DateEnd Date Jay Sadler MD [address] [facility] [place] [address] PCP - GeneralFamily Elfmyzev94/2/23Team MemberRelationshipSpecialtyStart DateEnd Date Jay Sadler MD [address] [facility] [place] [address] PCP - GeneralFamily Jczvexbh80/2/23Team MemberRelationshipSpecialtyStart DateEnd Date Jay Sadler MD [address] [facility] [place] [address] PCP - GeneralFamily Jzqvjike97/2/23Team MemberRelationshipSpecialtyStart DateEnd Date Jay Sadler MD [address] [place] [facility] [address] PCP - GeneralFamily Kwluhoxu55/16/24Team MemberRelationshipSpecialtyStart Date End Date Jay Sadler MD [address] [place] [facility] [address] PCP - GeneralFamily Gkffpusk17/16/24Team MemberRelationshipSpecialtyStart Date End Date Jay Sadler MD [address] [place] [facility] [address] PCP - GeneralFamily Xfwhiisp77/16/24Team MemberRelationshipSpecialtyStart Date End Date Jay Sadler MD [address] [place] [facility] [address] PCP - GeneralFamily Cevsbnpv82/16/24Team MemberRelationshipSpecialtyStart Date End Date Jay Sadler MD [address] [facility] [place] [address] PCP - GeneralmiWell[facility]04/19/25Team MemberRelationshipSpecialtyStart DateEnd Date Jay Sadler MD [address] [facility] [place] [address] PCP - [facility]04/19/25Team MemberRelationshipSpecialtyStart DateEnd Date Jay Sadler MD [address] [facility] [place] [address] PCP - [facility]04/19/25Team MemberRelationshipSpecialtyStart DateEnd Date Jay Sadler MD [address] [facility] [place] [address] PCP - [facility]04/19/25Team MemberRelationshipSpecialtyStart DateEnd Date Jay Sadler MD [address] [facility] [place] [address] PCP - GeneralLiber[facility]04/19/25 FOR RECORDS PERTAINING TO PATIENTS WHO ARE [...] BE BASED ON THE PRIMARY CLINICAL RECORDS. [facility] CenterInspired [employer] [facility]. provides no warranty or guarantee of the accuracy or completeness of information in this document.
[2025-08-14 12:22] LABS: Hematocrit 41.6 % (36.0-48.0); Hemoglobin 14.2 g/dL (12.0-16.0); Immature Granulocytes Abs Auto 0.02 10^3/uL (0.00-0.03); Immature Granulocytes Pct Auto 0.3 % (0.0-0.5); Lymphocytes Absolute Auto 1.6 10^3/uL (1.2-3.8); Mean Corpuscular HGB Conc 34.1 g/dL (29.9-35.2); Mean Corpuscular Hemoglobin 31.3 pg (26.7-34.0); Mean Corpuscular Volume 91.6 fL (81.0-99.0); Platelet Count 267 10^3/uL (150-450); Red Blood Count 4.54 10^6/uL (4.20-5.40); White Blood Count 6.2 10^3/uL (4.0-11.0)
[2025-08-14 12:33] LABS: Alanine Aminotransferase 25 U/L (14-59); Albumin Globulin Ratio 1.1; Albumin Level 3.7 g/dL (3.4-5.0); Alkaline Phosphatase 81 U/L (46-116); Anion Gap 10.0; Aspartate Amino Transferase 21 U/L (15-37); Blood Urea Nitrogen 12.0 mg/dL (7.0-18.0); Calcium 8.8 mg/dL (8.5-10.1); Carbon Dioxide 29.7 mmol/L (21.0-32.0); Chloride 106 mmol/L (98-107); Estimated GFR (African America >60 (>=60 mL/min/1.73m^2); Estimated GFR (Non-African Ame >60 (>=60 mL/min/1.73m^2); Globulin 3.5 g/dL; Glucose 97 mg/dL (74-106); Potassium 3.7 mmol/L (3.5-5.1); Sodium 142 mmol/L (136-145); Total Protein 7.2 g/dL (6.4-8.2); Uric Acid 4.0 mg/dL (2.6-6.0)
[2025-08-15 13:09] LABS: Antinuclear Antibodies, IFA Negative (.)
== END 2025-08-14 11:57 | disposition home or self-care (01) ==
LOC: LAB 11:57
PROVIDERS: PCP Family Medicine; Visit Provider Family Medicine
DX: M46.1 Sacroiliitis, not elsewhere classified (principal)
CPT/HCPCS: 36415; 80053; 84550; 85025; 85652; 86038; 86060; 86140; 86431

== ENCOUNTER 2025-08-17 11:07 | Outpatient (OUT) | payer OTHER, SELFPAY ==
--- OUTSIDE RECORDS SUMMARY | 2025-08-09 15:00 | XMS_ITS | Encounter Summary ---
Author Organization [facility] Address [address] [facility] [place] [address] Care Team Providers Care Trimmer Press Clippings Name Role Phone Jay Sadler MD Primary Care Provider [phone] Reason for Visit * ReasonCommentsWell Women Visit Encounter Details DateTypeDepartmentCare Team (Latest Contact Info)Ixlyjpcgina78/12/2025 3:00 PM ESTProcedure Visit [facility] [address] [place] [phone] Sharon Johnson PA [address] [facility] [address] [place], [place] [id number] Well woman exam with routine gynecological exam Social History Tobacco UseTypesPacks/DayYears UsedDateSmoking Tobacco: NeverSmokeless Tobacco: NeverAlcohol UseStandard Drinks/WeekCommentsNot Currently1 (1 standard drink = 0.6 oz pure alcohol)Only on special occasionsCommentsUnknownSex and Gender InformationValueDate RecordedSex Assigned at BirthNot on fileLegal Sex Dwbivb5912/10/2022 11:47 PM EDTGender IdentityNot on fileSexual OrientationNot on filedocumented as of this encounter Last Filed Vital Signs Vital SignReadingTime TakenCommentsBlood Stkulqqp997/7008/09/2025 3:15 PM EST Pulse--Temperature--Respiratory Rate--Oxygen Saturation--Inhaled Oxygen Concentration--Gbzkbe26 kg (205 lb)08/09/2025 3:15 PM ESTHeight--Body Mass Index 32.1108 9:33 AM EDTdocumented in this encounter Progress Notes * HILDA Rebolledo - 08/09/2025 3:00 PM EST Reason for Appointment: Patient ID: Aaliyah Dominguez is a 29 y.o. female who presents for Well Women Visit Patient presents today for Annual Exam. MEDICATIONS Current Outpatient Medications Medication Instructions Loratadine (CLARITIN) 10 mg, Daily ALLERGIES Allergies Allergen Reactions Raspberry Itching PROBLEMS Active Ambulatory Problems Diagnosis Date Noted Bilateral lower extremity edema 09/09/2023 Congenital cystic kidney disease 09/09/2023 Dyspareunia in female 09/09/2023 Endometriosis 09/09/2023 Obesity 09/09/2023 Essential hypertension 09/09/2023 Kidney disease 09/09/2023 Polycystic kidney disease 09/09/2023 GERD (gastroesophageal reflux disease) 09/09/2023 Chronic rhinitis 09/14/2023 ETD (Eustachian tube dysfunction), bilateral 09/14/2023 Resolved Ambulatory Problems Diagnosis Date Noted Acute bronchiolitis 09/09/2023 Past Medical History: Diagnosis Date Benign essential HTN COVID-19 Depression screening Dizziness Ear problems 03/28/23 Headache 03/28/23 Insomnia Obesity (BMI 30-39.9) Other specified related conditions, unspecified trimester (HHS-HCC) Ovarian cyst PCK (polycystic kidney disease) TMJ dysfunction Back in 2011 Well woman exam HISTORY PAST MEDICAL HISTORY SOCIAL HISTORY Past Medical History: Diagnosis Date Benign essential HTN Bilateral lower extremity edema COVID-19 Depression screening Dizziness Ear problems 03/28/23 Endometriosis 2008 Headache 03/28/23 Insomnia Obesity (BMI 30-39.9) Other specified related conditions, unspecified trimester (HHS-HCC) Ovarian cyst PCK (polycystic kidney disease) TMJ [...] HISTORY r/o fatty tumor from back TONSILLECTOMY 2008 Tonsillectomy/Adenoidectomy WISDOM TOOTH EXTRACTION wisdom teeth REVIEW [...] nursing note reviewed. Exam conducted with a tire curer present. Vitals: Estimated body mass index is 32.11 kg/m?? as calculated from the following: Height as of 05/08/25: 5' 7 . Weight as of this encounter: 205 lb. BP: 120/70 No LMP recorded (within months). ASSESSMENT & PLAN ICD-10-CM 1. Well woman exam with routine gynecological exam Z01.419 Pap Smear No orders of the defined types were placed in this encounter. Annual Wellness Exam: Patient presents today for routine annual exam. Patient states she has no current complaints. Patients vitals were reviewed and within normal limits. Growth and development is noted to be appropriate for age. Menstrual history is noted to be regular with no concerns reported. No mental health concerns was expressed. Pap Smear: Speculum was inserted into the vagina and pap was obtained without difficulty. No HPV testing was performed per age guideline. Patient was advised that pap results could take anywhere from 7 to 10 days to receive and our office will reach out to the patient with those once we have them. Patient canalso view results via MyChart. I reinforced importance of condom use for STI prevention. Patient declined cultures to be performed with today's visit. Breast Exam: Upon examination, clinical breast exam was noted to be normal. Patient was counseled on breast self-awareness, including the importance of knowing what is normal for her own breasts and promptly reporting any changes such as new lumps, skin dimpling, nipple discharge, or pain. Screening mammogram recommended annually beginning at age 40 or earlier if risk factors are present. Discussed signs and symptoms of breast cancer and when to seek medical attention. Answered all patient questions. Contraceptive Counseling (if applicable): Patient is currently using no control at this time as a form of contraceptive. Follow Up: Patient is to return to our office in one year for annual exam unless needed otherwise. Documented by HILDA Rebolledo on behalf of: HILDA Rebolledo documented in this encounter Plan of Treatment NameTypePriorityAssociated DiagnosesOrder SchedulePap SmearPathology and CytologyRoutine Well woman exam with routine gynecological exam Ordered: 08/09/2025documented as of this encounter Visit Diagnoses Diagnosis Well woman exam with routine gynecological exam Routine gynecological examination documented in this encounter Care Teams Team MemberRelationshipSpecialtyStart DateEnd Date Jay Sadler MD [address] [place] [address] PCP - GeneralFamily Medicine04/19/25documented as of this encounter
--- OUTSIDE RECORDS SUMMARY | 2025-08-17 11:10 | XMS_ITS | Encounter Summary ---
Author Organization [facility] Address [address] [place] [address] Care Team Providers Care Editorial Assistant Name Role Phone Jay Sadler MD Primary Care Provider [phone] Encounter Details DateTypeDepartmentCare Team (Latest Contact Info)Lsmzbkelnod22/12/2025Clinisync Result Encounter [facility] External Department Unsolicited Sharon Johnson, HILDA [address] [place] [address] [place] [address] Social History Tobacco UseTypesPacks/DayYears UsedDateSmoking Tobacco: NeverSmokeless Tobacco: NeverAlcohol UseStandard Drinks/WeekCommentsNot Currently1 (1 standard drink = 0.6 oz pure alcohol)Only on special occasionsCommentsUnknownSex and Gender InformationValueDate RecordedSex Assigned at BirthNot on fileLegal Sex Rwigjg6612/10/2022 11:47 PM EDTGender IdentityNot on fileSexual OrientationNot on filedocumented as of this encounter Plan of Treatment Not on file documented as of this encounter Procedures Procedure NamePriorityDate/TimeAssociated DiagnosisCommentsIGP,APTIMA HPV,AGE UZDXAopjdla75/12/2025 3:06 PM EST documented in this encounter Results * IGP,APTIMA HPV,AGE GDLN (08/09/2025 3:06 PM EST)ComponentValueRef RangeTest MethodAnalysis TimePerformed AtPathologist SignatureAGE GDLN ACOG TESTINGNote. TBHComment: ?? TESTS ? RESULT ??FLAG ??UNITS ?REF RANGE ??LAB ?? Clinician Provided Cytology Information ?? Source.............Cervix;Endocervix ?? No. of containers..01 ThinPrep Vial Age Algo ACOG Ligia... ??- ? 01 ?FLAG LEGEND: ?L-Low Normal,H-High Normal,LL-Alert Low,HH-Alert High <-Panic Low,>-Panic High,A-Abnormal,AA-Critical Abnormal Performed at: 01 =G ?[facility] ?? [address] [place] ??[address] ?? Gillian Guillaume MD, IGP, RFX APTIMA HPV ASCUNote.TBHComment: ?? TESTS ? RESULT ??FLAG ??UNITS ?REF RANGE ??LAB DIAGNOSIS: ?02 ?? NEGATIVE FOR INTRAEPITHELIAL LESION OR MALIGNANCY. Specimen adequacy: ?02 ?? Satisfactory for evaluation. ??Endocervical and/or squamous metaplastic ?? cells (endocervical component) are present. Performed by: ? 02 ?? Bro Holland Immigration Judge (ASCP) . ? 02 Note: ? Note ?02 ?? The Pap smear is a screening test designed to aid in the ?? detection of premalignant and malignant conditions of the ?? uterine cervix. ??It is not a diagnostic procedure and ?? should not be used as the sole means of detecting cervical ?? cancer. ??Both false-positive and false-negative reports do ?? occur. Test Methodology: ? Note ?02 ?? This liquid based ThinPrep(R) pap test was interpreted ?? using the myNoticePeriod.com(R) Genius(TM) Cervical Algorithm whole ?? slide imaging system. . ? 02 ?? The HPV DNA reflex criteria were not met with this specimen ?? result therefore, no HPV testing was performed. ?FLAG LEGEND: ?L-Low Normal,H-High Normal,LL-Alert Low,HH-Alert High <-Panic Low,>-Panic High,A-Abnormal,AA-Critical Abnormal Performed at: 02 WB ?[facility] ?? [address] [place], [place] ??[address] ?? Gillian Guillaume MD, Performed at: ??=G - [facility] ??[id number] Trapper Animal: Gillian Guillaume MD, Phone: ??[phone] Performed at: ??WB - [facility] [address] ??[id number] Trapper Animal: Gillian Guillaume MD, Phone: ??[phone] Specimen (Source)Anatomical Location / LateralityCollection Method / Volume Collection TimeReceived Time08/09/2025 3:06 PM EST08/09/2025 8:39 PM EST Narrative CLIN[facility] - 08/13/2025 4:12 PM EST BRUSH-SPATULA CERVIX ENDOCERVIX Authorizing ProviderResult TypeResult StatusAmy [facility] BLOOD ORDERABLES Final ResultPerforming OrganizationAddressCity/State/ZIP CodePhone Number CLINISYNC TB documented in this encounter Visit Diagnoses Not on filedocumented in this encounter Care Teams Team MemberRelationshipSpecialtyStart DateEnd Date Jay Sadler MD [address] [place] [address] PCP - GeneralFamily Medicine04/19/25documented as of this encounter
--- OUTSIDE RECORDS SUMMARY | 2025-08-17 11:10 | XMS_ITS | Clinical Summary ---
Author Organization [facility] Address [address] [facility] [place] [place] [address] Care Team Providers Care Preload Supervisor Name Role Phone Jay Sadler MD Primary Care Provider [phone] Allergies Active AllergyReactionsCriticalityNoted YdduKqwjadrsQslkifazlOhsbvcq62/13/2023 Medications MedicationSigDispense QuantityRefillsLast FilledStart DateEnd DateStatus Loratadine (Claritin) 10 MG capsule Take 10 mg by mouth DailyActive Active Problems ProblemNoted DateDiagnosed DateChronic mqgeiamx06/18/2023ETD (Eustachian tube dysfunction), /18/2023ilateral lower extremity edema09/09/2023 Congenital cystic kidney uzktlew2409/09/2023yspareunia in ramukd1309/09/2023 Ftvvvbvlwzyny29/13/0263Bvpblph32/13/2023Essential fjqbhyjgwyow52/13/2023idney uyedlvi2909/09/2023olycystic kidney tziadme4109/09/2023ERD (gastroesophageal reflux disease)09/09/2023 Resolved Problems ProblemNoted DateDiagnosed DateResolved DateAcute fgfstzczttaxy22/13/2023 09/09/2023 Encounters DateTypeDepartmentCare JwziTivnkvjxqke80/12/2025 3:00 PM ESTProcedure Visit [facility] [address] [place] [address] Sharon Johnson PA Well woman exam with routine gynecological exam08/09/2025linisync Result Encounter [facility] External Department Unsolicited Sharon Johnson PA 08/09/2025amboo flowsheet [facility] [address] [place] [address] Sharon Johnson PA 08/08/2025Travelfrom Last 3 Months [...] Last Filed Vital Signs Vital SignReadingTime TakenCommentsBlood Kewzbgfe036/7008/09/2025 3:15 PM EST Pulse--Temperature--Respiratory Rate--Oxygen Saturation--Inhaled Oxygen Concentration--Jlnjeh87 kg (205 lb)08/09/2025 3:15 PM VXKEudukp418.2 cm (5' 7 ) 05/08/2025 9:33 AM EDTBody Mass Index32.1108 9:33 AM EDT Plan of Treatment Not on file Procedures Procedure NamePriorityDate/TimeAssociated DiagnosisCommentsIGP,APTIMA HPV,AGE NOEKXidzdfx50/12/2025 3:06 PM EST from Last 3 Months Results * IGP,APTIMA HPV,AGE GDLN (08/09/2025 3:06 PM EST)ComponentValueRef RangeTest MethodAnalysis TimePerformed AtPathologist SignatureAGE GDLN ACOG TESTINGNote. TBHComment: ?? TESTS ? RESULT ??FLAG ??UNITS ?REF RANGE ??LAB ?? Clinician Provided Cytology Information ?? Source.............Cervix;Endocervix ?? No. of containers..01 ThinPrep Vial Age Algo ACOG Ligia... ??21-29 ? 01 ?FLAG LEGEND: ?L-Low Normal,H-High Normal,LL-Alert Low,HH-Alert High <-Panic Low,>-Panic High,A-Abnormal,AA-Critical Abnormal Performed at: 01 =G ?[facility] ?? [address] [place] ??[address] ?? Gillian Guillaume MD, IGP, RFX APTIMA HPV ASCUNote.TBHComment: ?? TESTS ? RESULT ??FLAG ??UNITS ?REF RANGE ??LAB DIAGNOSIS: ?02 ?? NEGATIVE FOR INTRAEPITHELIAL LESION OR MALIGNANCY. Specimen adequacy: ?02 ?? Satisfactory for evaluation. ??Endocervical and/or squamous metaplastic ?? cells (endocervical component) are present. Performed by: ? 02 ?? Bro Holland Steel Construction Worker (ASCP) . ? 02 Note: ? Note [...] pap test was interpreted ?? using the One2start(R) Genius(TM) Cervical Algorithm whole ?? slide imaging system. . ? 02 ?? The HPV DNA reflex criteria were not met with this specimen ?? result therefore, no HPV testing was performed. ?FLAG LEGEND: ?L-Low Normal,H-High Normal,LL-Alert Low,HH-Alert High <-Panic Low,>-Panic High,A-Abnormal,AA-Critical Abnormal Performed at: 02 WB ?[facility] ?? [address] [place], [place] ??[address] ?? Gillian Guillaume MD, Performed at: ??=G - [facility] ??[id number] Research Geologist: Gillian Guillaume MD, Phone: ??[phone] Performed at: ??WB - [facility] ??[id number] Research Geologist: Gillian Guillaume MD, Phone: ??[phone] Specimen (Source)Anatomical Location / LateralityCollection Method / Volume Collection TimeReceived Time08/09/2025 3:06 PM EST08/09/2025 8:39 PM EST Narrative [facility] - 08/13/2025 4:12 PM EST BRUSH-SPATULA CERVIX ENDOCERVIX Authorizing ProviderResult TypeResult StatusAmy [facility] BLOOD ORDERABLES Final ResultPerforming OrganizationAddressCity/State/ZIP CodePhone Number CLINISYNC TBH from Last 3 Months Insurance Care Teams Team MemberRelationshipSpecialtyStart DateEnd Date Jay Sadler MD [address] [place] [address] PCP - GeneralKossuth Regional Health Centerly Medicine04/19/25
--- OUTSIDE RECORDS SUMMARY | 2025-08-17 11:10 | XMS_ITS | Encounter Summary ---
Author Organization [facility] Address [address] [facility] [place] [address] Care Team Providers Care Horse Racing Manager Name Role Phone Jay Sadler MD Primary Care Provider [phone] Encounter Details DateTypeDepartmentCare Team (Latest Contact Info)Vrckttdcsxz92/11/2025Travel Social History Tobacco UseTypesPacks/DayYears UsedDateSmoking Tobacco: NeverSmokeless Tobacco: NeverAlcohol UseStandard Drinks/WeekCommentsNot Currently1 (1 standard drink = 0.6 oz pure alcohol)Only on special occasionsCommentsUnknownSex and Gender InformationValueDate RecordedSex Assigned at BirthNot on fileLegal Sex Uoyxmp5112/10/2022 11:47 PM EDTGender IdentityNot on fileSexual OrientationNot on filedocumented as of this encounter Plan of Treatment Not on file documented as of this encounter Visit Diagnoses Not on filedocumented in this encounter Care Teams Team MemberRelationshipSpecialtyStart DateEnd Date Jay Sadler MD [address] [place] [address] PCP - GeneralFamily Medicine04/19/25documented as of this encounter
--- OUTSIDE RECORDS SUMMARY | 2025-08-17 11:10 | XMS_ITS | Encounter Summary ---
Author Organization [facility] Address [address] [facility] [place] [address] Care Team Providers Care Intranet Support Name Role Phone Jay Sadler MD Primary Care Provider [phone] Encounter Details DateTypeDepartmentCare Team (Latest Contact Info)Chjfusvnkfr89/12/2025Bamboo flowsheet [facility] [address] [place] [id number] Sharon Johnson PA [address] [place], [facility] Social History Tobacco UseTypesPacks/DayYears UsedDateSmoking Tobacco: NeverSmokeless Tobacco: NeverAlcohol UseStandard Drinks/WeekCommentsNot Currently1 (1 standard drink = 0.6 oz pure alcohol)Only on special occasionsCommentsUnknownSex and Gender InformationValueDate RecordedSex Assigned at BirthNot on fileLegal Sex Nlatbo9612/10/2022 11:47 PM EDTGender IdentityNot on fileSexual OrientationNot on filedocumented as of this encounter Plan of Treatment Not on file documented as of this encounter Visit Diagnoses Not on filedocumented in this encounter Care Teams Team MemberRelationshipSpecialtyStart DateEnd Date Jay Sadler MD [address] [facility] [place] [phone] PCP - GeneralFamily Medicine04/19/25documented as of this encounter
--- OUTSIDE RECORDS SUMMARY | 2025-08-17 11:10 | XMS_ITS | Clinical Summary ---
Author Organization [facility] Address [address] [place] [address] Phone Care Team Providers Care Hole Filler Name Role Phone Jay Sadler MD Primary Care Provider [phone] Social History Tobacco UseTypesPacks/DayYears UsedDateSmoking Tobacco: Never Assessed CommentsUnknownSex and Gender InformationValueDate RecordedSex Assigned at Not on fileLegal LksAsfdxq93/26/2022 4:22 AM ESTGender IdentityNot on fileSexual OrientationNot on file Plan of Treatment Not on file Care Teams Team MemberRelationshipSpecialtyStart DateEnd Date Jay Sadler MD [address] [place] [address] PCP - General04/28/19
--- OUTSIDE RECORDS SUMMARY | 2025-08-17 12:07 | XMS_ITS | CCD ---
Author Organization [facility] CliniSydc Care Team Providers Care Pan Washer Hand Name Role Phone REQUEST, DR NONE [...] (1 source)RaspberryPropensity to adverse reactionstingles, and itchesNorth WhoJam Other (17 sources)raspberry allergenic extract; Translations: [RASPBERRY]Drug Allergy 12-62-7860GfdevhlJRDXSkyline [facility] Work Phone: (4 sources)raspberry extractDrug Xviajas14-84-8082ZlqwdzrMrnNxchlb Health System (1 source)No Known Medication Allergies; Translations: [No Known Medication Allergies]Propensity to adverse reactions (disorder)[facility] Repository Medications Current Medications MedicationDrug Class(es)DatesSig (Normalized)Sig (Original)fluticasone propionate 0.05 mg/actuat metered dose nasal spray (1 source)CorticosteroidStart: 04-24-2023 End: 19-53-2684zjpr 1 spray(s) nasal route in the morningfluticasone (Flonase) 50 MCG/ACT nasal spray Administer 1 spray into each nostril in the morning. 05/17/2024 Discontinuedlabetalol hydrochloride 200 mg oral tablet (8 sources)beta-Adrenergic BlockerStart: 04-01-2024 End: 94-76-5424nemg 1 tablet by mouth oncelabetalol (Normodyne) 200 MG tablet Take 1 tablet by mouth 1 (one) time 04/01/2024 05/08/2025 Discontinued (Therapy completed)loratadine 10 mg oral capsule (15 sources)take 1 capsule by mouth once dailyLoratadine (Claritin) 10 MG capsule Take 10 mg by mouth Daily ActivemethylPREDNISolone 4 mg oral tablet (1 source)CorticosteroidStart: 85-87-1997gplscmYFMOBNLpfbvn 4 MG as directed Orally for daily dose take half with breakfast, half with dinner for 6 days May, ActiveNIFEdipine 90 mg osmotic 24 hr extended release oral tablet (5 sources)Dihydropyridine Calcium Channel BlockerStart: 83-46-2748ktmu 1 tablet by mouth every twenty-four hours in the morningNIFEdipine XL (PROCARDIA XL) 90 mg 24 hr tablet Take 1 tablet (90 mg total) by mouth in the morning. 90 tablet 3 10/20/2024 ActiveStart: 07-14-2024 End: 21-40-3067sixu 1 tablet by mouth every twenty-four hours in the morning NIFEdipine XL (PROCARDIA XL) 60 mg 24 hr tablet Take 1 tablet (60 mg total) by mouth in the morning. 90 tablet 3 07/14/2024 10/20/2024 DiscontinuedPrenatal MV-Min-Fe Fum-FA-DHA ( 1 PO) (8 sources) End: 05-21-6407Zklrfyrw MV-Min-Fe Fum-FA-DHA ( 1 PO) Take by mouth 05/08/2025 Discontinued (Therapy completed) MV-Min-Fe Fum-FA-DHA ( 1 PO) Take by mouth Active Problems Active Problems Problem ClassificationProblemDateDocumented DateEpisodic/ChronicAbdominal pain (3 sources)Upper abdominal pain; Translations: [Upper abdominal pain, unspecified]Onset: 37-53-5103RbwkcdifHntuhpir foot deformities (2 sources)Acquired valgus deformity of left ankle; Translations: [Valgus deformity, not elsewhere classified,left ankle]54-14-6952RfptcoxjLxvskyi disorders (1 source)Jnzqefd36-09-1727HhaimreLxohbwspzakbx (17 sources)Endometriosis (clinical); Translations: [Endometriosis, unspecified] Onset: 867715-61-4138YhptslsYfbpipyhkd disorders (18 sources)Gastroesophageal reflux disease without esophagitis; Translations: [Gastro-esophageal reflux disease without esophagitis]Onset: 09-09-2023 63-50-1651JgqprfrGxbyfauvz hypertension (17 sources)Essential hypertension; Translations: [Essential (primary) hypertension]Onset: 341067-44-7369MbruibmYumyvxaqwuxdzfhh hemorrhage (3 sources)Melena; Translations: [Hematochezia]Onset: 80-47-9852Hdmallmk Genitourinary congenital anomalies (20 sources)Polycystic kidney, unspecified; 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]Onset: 722153-61-7417RphebinYzxicvmy; including migraine (1 source)Arxnxwnc89-27-7607QauvfzqEdxibhvv; including migraine (4 sources)Headache; including migraine; Translations: [HEADACHE UNSPECIFIED] Onset: 67-97-0629Hrahggvfznywn and screening for infectious disease (1 source)Encounter for screening for human papillomavirus (HPV); Translations: [ENC SCREENING HUMAN PAPILLOMAVIRUS]Onset: 59-82-6716NupmmpdlBwfuf acquired deformities (2 sources)Equinus contracture of the ankle; Translations: [Contracture, left ankle]20-07-9655BplghwpLhhwl connective tissue disease (2 sources)Tendinitis of left posterior tibial tendon; Translations: [Posterior tibial tendinitis, left leg]64-97-3133CpmrqfppBuumd connective tissue disease (2 sources)Tendinitis of right posterior tibial tendon; Translations: [Posterior tibial tendinitis, right leg]85-84-2085CznedvuhWrqum female genital disorders (16 sources)Pain in female genitalia on intercourse; Translations: [Unspecified dyspareunia]Onset: 539145-28-2073IboaxzlFtmhe gastrointestinal disorders (1 source)Irritable bowel syndrome characterized by constipation; Translations: [Irritable bowel syndrome with constipation]ChronicOther gastrointestinal disorders (1 source)Constipation alternates with diarrhea; Translations: [Other specified symptoms and signs involving the digestive system and abdomen]EpisodicOther gastrointestinal disorders (1 source)Constipation; Translations: [Constipation, unspecified]EpisodicOther nervous system disorders (2 sources)Difficulty walking; Translations: [Difficulty in walking, not elsewhere classified]03-72-3310EapqjgzCixex non-traumatic joint disorders (2 sources)Instability of joint of left ankle; Translations: [Other instability, left ankle]12-38-0298KnghlcnsXcmlb non-traumatic joint disorders (2 sources)Sinus tarsi syndrome of left ankle; Translations: [Pain in left ankle and joints of left foot]27-85-4825RieqvzpnWspvx nutritional; endocrine; and metabolic disorders (16 sources)Obesity; Translations: [Obesity, unspecified]Onset: 09-09-2023 76-63-4372KaesruuRkyae nutritional; endocrine; and metabolic disorders (1 source)Body mass index 30+ - pihekos48-43-4847EwjcruuXxiwh nutritional; endocrine; and metabolic disorders (1 source)Obesity caused by energy xybihkiho28-03-0694OjkgcsrBvxpf nutritional; endocrine; and metabolic disorders (1 source)Unintentional weight loss; Translations: [Abnormal weight loss] EpisodicOther screening for suspected conditions (not mental disorders or infectious disease) (4 sources)Encounter for screening for malignant neoplasm of cervix; Translations: [ENC SCREENING MALIG NEOPLASM CERV]Onset: 44-31-4414CjpzpdacFvwes upper respiratory disease (16 sources)Chronic rhinitis; Translations: [Chronic rhinitis]Onset: 09-14-2023 96-46-7295DsplnglTyiotsuef by nonmedicinal substances (1 source)Toxic effect of venom of bees, accidental (unintentional), initial encounterEpisodicResidual codes; unclassified (1 source)Sleep qputf72-99-2959Kcxmsdz Past or Other Problems Problem ClassificationProblemDateDocumented DateEpisodic/ChronicAcute bronchitis (16 sources)Acute bronchiolitis; Translations: [Acute bronchiolitis, unspecified]Onset: 09-09-2023 Resolved: 211358-17-2439UzjafeuoAyqyd diseases of kidney and ureters (16 sources)Kidney disease; Translations: [Disorder of kidney and ureter, unspecified]Onset: 596371-74-4971SubgyesaXenwc and delivery including normal (1 source) care status; Translations: [Encounter for routine follow-up]00-91-0403GtfmahjzYddryg media and related conditions (16 sources)Dysfunction of bilateral eustachian tubes; Translations: [Unspecified Eustachian tube disorder, bilateral]Onset: EpisodicResidual codes; unclassified (16 sources)Bilateral lower limb edema; Translations: [Localized edema]Onset: 171998-74-9151Xigvevbj Results Test NameValueInterpretationReference RangeFacilityAmbulatory Visit Summaryon 71-51-1860Yxiiffuptg Visit SummaryAmbulatory Visit Summary AALIYAH CARVALHO :1995 [...] signed up for this yet, please contact [employer] at [phone] to get signed up today. Language Information Language assistance services are available as needed. [facility] Panel Informationon 56-28-4536Jjcihoayn Study observation (narrative)[facility] (narrative)[facility] Ankle - left 2 Viewson 05-08-2025 Imaging Result: AP, lateral views are weight-bearing. Decreased calcaneal inclination and increased talar declination. Talus is well seated within the ankle mortise. Os trigonum noted over the posterior talar process. No fractures or dislocations noted.[facility] Ankle - right 2 Viewson 50-17-7782EDWF HealthcareImaging Result: Entered in error, wrong [facility] - left 2 Views on 74-94-6944Ddspbae Result: AP, medial oblique views are weight-bearing. Increased IM 1-2 angle. Slight joint space narrowing of the 1st MTP. No cystic changes noted. Approximately 30 percent talar head uncoverage. Os trigonum noted over the posterior subtalar joint region.[facility] Foot - right 2 Viewson 17-12-1025KVBF HealthcareImaging Result: Entered in error, wrong [facility] HospitalBASIC METABOLIC PANLon 13-87-7978Phdna gap [Moles/Vol]8 mmol/LNormal5-15[facility] Comment on above:Performed By: #### CBC, 80408-9, 64869-7, 2731-8, 15330-1, 26626-5, 46558-2, BMP, 5196-1, 35070-6, 5193-8, 6969-0, UPCR, SIFE, 85245-0, 6968-2, 2777-1 #### [facility] ([id number]) [address], [address] [place] [address] #### 49879-5 #### [facility] ([id number]) [address] [place] [address] 07858Veeufeo [Mass/Vol]9.4 mg/dLNormal8.5-10.5Pro[facility]cinas HospitalComment on above:Performed By: #### CBC, 28187-9, 11304-2, 2731-8, 91110-7, 35494-5, 12622-7, BMP, 5196-1, 25594-0, 5193-8, 6969-0, UPCR, SIFE, 81763-9, 6968-2, 2776-1 #### [facility] ([id number]) [address], [address] [place] [address] #### 05424-4 #### [facility] ([id number]) [address] [place] [address] 30237Bhnkkuzm [Moles/Vol]107 mmol/NAyrsqi20-746FmoDfjsbb [facility]cin[facility] HospitalComment on above:Performed By: #### CBC, 98324-5, 60162-8, 2731-8, 19738-8, 23230-1, 13242-3, BMP, 5196-1, 09384-4, 5193-8, 6969-0, UPCR, SIFE, 94832-2, 6968-2, 2777-1 #### [facility] ([id number]) [address], [address] [place] [address] #### 07213-5 #### [facility] ([id number]) [address] [place] [address] 18409LV1 [Moles/Vol]28 mmol/OWcylqh44-99DenTcrsumHighland District Hospital Comment on above:Performed By: #### BERTA, 51984-4, 56289-1, 2731-8, 14516-0, 77863-4, 65696-0, BMP, 5196-1, 97897-2, 5193-8, 6969-0, UPCR, SIFE, 85822-3, 6968-2, 2777-1 #### [facility] ([id number]) [address] [facility], [address] [place] [address] #### 84756-6 #### [facility] ([id number]) [address] [place] [address] 42260Imfwjmfmie [Mass/Vol]0.77 mg/dLNormal0.40-1.00[facility] HospitalComment on above:Result Comment: METHOD TRACEABLE TO IDMS STANDARD Performed By: #### BERTA, 77799-7, 51545-6, 2731-8, 60629-8, 96486-6, 42247-3, BMP, 5196-1, 33183-5, 5193-8, 6969-0, UPCR, SIFE, 30031-6, 6968-2, 2777-1 #### [facility] ([id number]) [address], [address] [place] [address] #### 78988-7 #### [facility] ([id number]) [address] [place] [address] 80201eYGO (CKD-EPI) NON-RACE DEPENDENT>90Normal>59ProTexas Health FriscoComment on above:Result Comment: Reported eGFR is based on the CKD-EPI 2020 equation that does not use a race coefficient.Performed By: #### BERTA, 19076-4, 14602-8, 2731-8, 76928-1, 06054-6, 19154-5, BMP, 5196-1, 03791-4, 5193-8, 6969-0, UPCR, SIFE, 44541-8, 6968-2, 2777-1 #### [facility] ([id number]) [address] [place] [address], [facility] [address] [place] [address] #### 32029-8 #### [facility] ([id number]) [address] [place] [address] 67313Rjkzadx [Mass/Vol]89 mg/cGHqqswy65-19JhzBmxsslTexas Health Frisco Comment on above:Performed By: #### CBC, 90477-9, 65829-2, 2731-8, 94329-5, 52672-8, 61395-2, BMP, 5196-1, 15827-0, 5193-8, 6969-0, UPCR, SIFE, 34499-7, 6968-2, 2777-1 #### [facility] ([id number]) [address] [place] [address], [address] [place] [address] #### 96794-1 #### [facility] ([id number]) [address] [place] [address] 40731Akoxldmqc [Moles/Vol]3.7 mmol/LNormal3.5-5.0ProTexas Health FriscoComment on above:Performed By: #### CBC, 87508-8, 90278-2, 2731-8, 88652-0, 49548-7, 33726-9, BMP, 5196-1, 01561-7, 5193-8, 6969-0, UPCR, SIFE, 13476-3, 6968-2, 2777-1 #### [facility] ([id number]) [address] [place] [address], [address] [place] [address] #### 42217-8 #### [facility] ([id number]) [address] [place] [address] 71939Zbykju [Moles/Vol]143 mmol/UXrgxev147-851IjyAuqzlx [facility] HospitalComment on above:Performed By: #### CBC, 05381-6, 26425-3, 2731-8, 26274-7, 30113-0, 41410-1, BMP, 5196-1, 47335-8, 5193-8, 6969-0, UPCR, SIFE, 22833-8, 6968-2, 2777-1 #### [facility] ([id number]) [address] [place] [address], [facility] [address] [place] [address] #### 69203-5 #### [facility] ([id number]) [address] [place] [address] 11647Wemk nitrogen [Mass/Vol]12 mg/dLNormal5-ProTexas Health FriscoComment on above:Performed By: #### CBC, 00366-5, 07872-4, 2731-8, 89808-2, 96960-0, 49594-1, BMP, 5196-1, 02470-4, 5193-8, 6969-0, UPCR, SIFE, 37750-9, 6968-2, 2777-1 #### [facility] ([id number]) [address] [place] [address], [place] [id number] #### 61189-3 #### [facility] ([id number]) [address] [place] [address] 05818VOWWYRJF BLOOD COUNTon 00-29-6053Idnjcrpkozb distribution width (RBC) [Ratio]12.8 %Fakmqb19.5-15.0ProTexas Health FriscoComment on above: Performed By: #### CBC, 58616-3, 45275-6, 2731-8, 16879-1, 99405-5, 28261-2, BMP, 5196-1, 20096-8, 5193-8, 6969-0, UPCR, SIFE, 50044-9, 6968-2, 2777-1 #### [facility] ([id number]) [address] [place] [address], [address] [place] [id number] #### 07817-9 #### [facility] ([id number]) [address] [place] [address] 41125Utmbabocfa (Bld) [Volume fraction]38.9 %Yiuasa31-84KvyCrngdlTexas Health FriscoComment on above:Performed By: #### CBC, 91198-6, 54092-7, 2731- 8, 79371-1, 63715-8, 87963-8, BMP, 5196-1, 90282-6, 5193-8, 6969-0, UPCR, SIFE, 46081-9, 6968-2, 2777-1 #### [facility] ([id number]) [address] [place] [address], [address] [address] #### 70979-9 #### [facility] ([id number]) [address] [place] [address] 31920Rcbhpdujwk (Bld) [Mass/Vol]13.3 g/sIBywiah41.7-15.5Pro[facility]cinas HospitalComment on above:Performed By: #### CBC, 09129-7, 50978-5, 2731- 8, 12745-2, 53020-6, 52342-2, BMP, 5196-1, 21119-7, 5193-8, 6969-0, UPCR, SIFE, 55926-4, 6968-2, 2777-1 #### [facility] ([id number]) [address] [place] [address], [address] [place] [address] #### 79071-9 #### [facility] ([id number]) [address] [place] [address] 73826LCU (RBC) [Entitic mass]32.0 paXpdxol85-06AjvIvnfxbTexas Health FriscoComment on above:Performed By: #### CBC, 92658-3, 89828-6, 2731-8, 30741-9, 08751-6, 89691-1, BMP, 5196-1, 34431-7, 5193-8, 6969-0, UPCR, SIFE, 72757-1, 6968-2, 2777-1 #### [facility] ([id number]) [address], [address] [place] [address] #### 06755-2 #### [facility] ([id number]) [address] [place] [address] 72160WXZK (RBC) [Mass/Vol]34.3 g/sHXwnzhc44-61FruBavcngTexas Health FriscoComment on above:Performed By: #### CBC, 02834-0, 75518-3, 2731-8, 20973-3, 02236-5, 23686-5, BMP, 5196-1, 69524-5, 5193-8, 6969-0, UPCR, SIFE, 40589-7, 6968-2, 2777-1 #### [facility] ([id number]) [address] [facility], [address] [place] [address] #### 12384-9 #### [facility] ([id number]) [address] [place] [address] 95797QLV (RBC) [Entitic vol]93 zOTmtlwv01-370AahUdbgjm [facility] HospitalComment on above:Performed By: #### CBC, 89811-9, 96099-4, 2731-8, 91180-6, 20652-4, 09865-7, BMP, 5196-1, 22983-2, 5193-8, 6969-0, UPCR, SIFE, 55984-6, 6968-2, 2777-1 #### [facility] ([id number]) [address] [facility] [facility], [address] [place] [address] #### 74581-3 #### [facility] ([id number]) [address] [place] [address] 30333Gkpsspbw mean volume (Bld) [Entitic vol]9.4 fLNormal7-12 [facility]cin[facility] HospitalComment on above:Performed By: #### CBC, 27515-5, 63296-6, 2731-8, 35706-8, 09008-3, 80748-9, BMP, 5196-1, 98935-1, 5193-8, 6969- 0, UPCR, SIFE, 22728-3, 6968-2, 2777-1 #### [facility] ([id number]) [address] [facility] [facility], [address] [place] [address] #### 67549-3 #### [facility] ([id number]) [address] [place] [address] 54756Xetprrkrf (Bld) [#/Vol]268 10*3/zCRjzccw963-053VqkVhhqnm [facility] HospitalComment on above:Performed By: #### BERTA, 62009-3, 73907-1, 2731- 8, 65284-2, 45957-9, 52235-5, BMP, 5196-1, 19474-1, 5193-8, 6969-0, UPCR, SIFE, 65979-5, 6968-2, 2777-1 #### [facility] ([id number]) [address] [facility], [address] [place] [address] #### 92685-7 #### [facility] ([id number]) [address] [place] [address] 17875VWN COUNT4.17 X10E12/LNormal3.80-5.20[facility] Comment on above:Performed By: #### CBC, 27657-8, 81987-6, 2731-8, 46119-9, 17771-7, 96528-7, BMP, 5196-1, 14764-8, 5193-8, 6969-0, UPCR, SIFE, 21993-1, 6968-2, 2777-1 #### [facility] ([id number]) [address], [address] [place] [address] #### 39056-2 #### [facility] ([id number]) [address] [place] [address] 01081PYB (Bld) [#/Vol]5.5 10*3/uLNormal4.0-11.0ProTexas Health FriscoComment on above:Performed By: #### CBC, 07976-5, 07674-1, 2731-8, 00130-0, 99174-3, 54578-4, BMP, 5196-1, 65988-3, 5193-8, 6969-0, UPCR, SIFE, 29498-1, 6968-2, 2777-1 #### [facility] ([id number]) [address], [address] [place] [address] #### 10582-1 #### [facility] ([id number]) [address] [place] [address] 20639SIZK LIGHT CHAINSon 51-18-6256SSLM MARY ANN/LAMBD RATIO1.32Normal 0.26-1.65ProTexas Health FriscoComment on above:Performed By: #### 98987-6, 2777-1, BMP, CBC, UPCR #### [facility] ([id number]) [address], [address] [place], [place] [address]CHUS KAPPA LT CHAINS1.50 mg/dLNormal0.33-1.94ProTexas Health FriscoComment on above:Performed By: #### 16502-6, 2777-1, BMP, CBC, UPCR #### [facility] ([id number]) [address], [address] [place], [place] [address]YYPM LAMBDA LT CHAINS1.14 mg/dLNormal0.57-2.63ProOhiohealth Shelby Hospital HospitalComment on above:Performed By: #### 93843-9, 2777-1, BMP, CBC, UPCR #### [facility] ([id number]) [address], [address] [place], [place] [address]Nqmpxiocko basement membrane IgG Qn (S)on 27-73-8770CSD IgG Ab <0.2Normal<1.0Henry County HospitalComment on above:Performed By: #### 42515-3, 2777-1, BMP, CBC, UPCR #### [facility] ([id number]) [address], [address] [place], [place] [address]QKV core Ab IA Qlon 75-54-2379EXZZ HBcNon-ReactiveNormalNRCT ProMdecatur morgan hospitala [facility] HospitalComment on above:Result Comment: NEW TEST METHOD Performed By: #### 06338-7, 2777-1, BMP, CBC, UPCR #### [facility] ([id number]) [address], [address] [place], [place] [address]PZW surface Ab IA Qnon 47-49-3328Ygnw HBs quant.59.60 mIU/mL NormalProTexas Health FriscoComment on above:Result Comment: NOTE Vaccinated: >=10.00 mIU/mL, Positive (Immune) Unvaccinated: <10.00 mIU/mL, Negative (Not Immune) Interpretive values have changed due to implementation of a new method. Values run higher than previous method.Performed By: #### 70386-6, 2777-1, BMP, CBC, UPCR #### [facility] ([id number]) [address], [address] [place], [place] [address]NNY surface Ag IA Qlon 06-99-1533GFYQPHHLY B SURF AGNon-Reactive NormalNRCTProTexas Health FriscoComment on above:Result Comment: NEW TEST METHODPerformed By: #### 78793-4, 2777-1, BMP, CBC, UPCR #### [facility] ([id number]) [address], [address] [place], [place] [address]NFY Ab IA Qlon 75-88-8740XHCV HCV W/PCR REFLXNon-ReactiveNormal NRCTHenry County HospitalComment on above:Result Comment: NEW TEST METHOD NOTE If recent infection suspected, recommend repeat testing (>2 months). Iggyrq-vp-wvywdy ratio is <1.00.Performed By: #### 88661-5, 2777-1, BMP, CBC, UPCR #### [facility] ([id number]) [address], [address] [place], [place] [address]BHZ 1+2 Ab+HIV1 p24 Ag IA Qlon 69-31-0044TST 1 and 2 Ab/Ag ScreenNon-ReactiveNormalNRCTHenry County HospitalComuniversity of mich[facility] hospital on above:Result Comment: NEW TEST METHOD [...] HIV test results or diagnoses.Performed By: #### 78427-2, 2777-1, BMP, CBC, UPCR #### [facility] ([id number]) [address], [address] [place], [place] [address]FQINTBGJKko 90-30-8694Ypytqkfwl [Mass/Vol]1.7 mg/dLLow1.8-2.6 [facility] Hospitaled[facility]cinas HospitalComment on above:Performed By: #### 41972-3, 2777-1, BMP, CBC, UPCR #### [facility] ([id number]) [address], [address] [place], [place] [address]Jyiwkusvgdqhzpp Ab Qn (S)on 01-38-5230Vqbeabifvnfyxxs Ab<0.2 Normal<1.0[facility] HospitalComuniversity of mich[facility] hospital on above:Performed By: #### 94961-0, 2777-1, BMP, CBC, UPCR #### [facility] ([id number]) [address] [facility], [address] [place], [place] [address]Unczvapxqq cytoplasmic Ab panel IF (S)on 58-76-3974v-ANCA NegativeNormalNegativeCleveland Clinic Union Hospital on above:Performed By: #### 42714-6, 2777-1, BMP, CBC, UPCR #### [facility] ([id number]) [address] [facility], [address] [place], [place] [address]z-GJFHBudgjhjjOwglndAdkwczfuHjgIxewpv [facility] HospitalComment on above:Result Comment: NOTE Negative for cANCA and pANCA patterns by immunofluorescence. ADDITIONAL INFORMATION This test was developed and its performance characteristics determined by [facility] in a manner consistent with CLIA requirements. This test has not been cleared or approved by the U.S. Food and Drug Administration. Test Performed by: [place] [address] Plate Worker: Hai Carias Ph.D.; CLIA# [id number] By: #### 46358- 9, 2777-1, BMP, CBC, UPCR #### [facility] ([id number]) [address] [place] [address] [place] [address]Weknwdt Ab IA Ql (S)on 96-98-0606WBV Screen w/reflexNegative NormalNEGCleveland Clinic Union Hospital on above:Result Comment: Testing performed using multiplex flow immunoassay. Eleven different antigens associated with systemic autoimmune diseases (dsDNA,Sm,Sm/TEXTILE SUPERVISOR,TEXTILE SUPERVISOR,Chromatin, SSA,SSB,Lily-1,Scl70,Ribo P,Centromere B) are included in this screening test.Performed By: #### 36192-2, 2777-1, BMP, CBC, UPCR #### [facility] ([id number]) [address] [place], [place] [address]LLPYJOMKKQkn 19-25-0033Mtpmrnpfy [Mass/Vol]4.0 mg/dLNormal 2.4-4.9Henry County HospitalComment on above:Performed By: #### 40505-3, 2777-1, BMP, CBC, UPCR #### [facility] ([id number]) [address], [address] [place], [place] [address]DWUQOQW CREAT RATIOon 16-37-9813VBIUMM URINE PYZHLGB32 mg/L Normal<120ProTexas Health FriscoComment on above:Performed By: #### 84785-7, 2777-, BMP, CBC, UPCR #### [facility] ([id number]) [address], [address] [place], [place] [address]X/PRO/PROGRAM DIRECTOR SCOUTING RATIO CALC0.04Normal<0.2PHighland District Hospital Comment on above:Result Comment: Nephrotic Syndrome is associated with ratios >3.5Performed By: #### 01505-1, 2777-, BMP, CBC, UPCR #### [facility] ([id number]) [address], [address] [place], [place] [address]DQYFG CREATININE,YAQ481.27 mg/dLNoalHenry County Hospital Comment on above:Performed By: #### 83382-6, 2777-1, BMP, CBC, UPCR #### [facility] ([id number]) [address], [address] [place], [place] [address]Qtcjuxgafl.intact [Mass/Vol]on 93-87-2770KHT SJKHON31 pg/mL Hkeyum25-29OasEhnarwTexas Health FriscoComment on above:Performed By: #### 67289- 9, 2777-1, BMP, CBC, UPCR #### [facility] ([id number]) [address], [address] [place], [place] [address]Mdixznwfkv 3 Ab Qn (S)on 40-66-6458Qcfhdsrxzd 3 IgG Ab<0.2Normal <1.0ProTexas Health FriscoComment on above:Performed By: #### 75756-2, 2777- 1, BMP, CBC, UPCR #### [facility] ([id number]) [address], [address] [place], [place] [address]PUHER IMMUNOFIXATIONon 16-41-3990FtL [Mass/Vol]155 mg/dLNormal 68-378Henry County HospitalComment on above:Performed By: #### CBC, 43936- 9, 63913-4, 2731-8, 48826-9, 86991-4, 53676-5, BMP, 5196-1, 65628-6, 5193-8, 6969-0, UPCR, SIFE, 41971-1, 6968-2, 2777-1 #### [facility] ([id number]) [address], [address] [place] [address] #### 46107-1 #### [facility] ([id number]) [address] [place] [address] 82657SwE [Mass/Vol]974 mg/gXJqybmw820-9716EtrPzrdet[address] [place] [address] Comment on above:Performed By: #### CBC, 21791-2, 20627-5, 2731-8, 89048-4, 04035-4, 26939-7, BMP, 5196-1, 82047-3, 5193-8, 6969-0, UPCR, SIFE, 50911-2, 6968-2, 2777-1 #### [facility] ([id number]) [address], [address] [place] [address] #### 08680-2 #### [facility] ([id number]) [address] [place] [address]DwQ [Mass/Vol]62 mg/rRRxwgkc17-254UxpLndoclHenry County Hospital Comment on above:Performed By: #### CBC, 86665-0, 04466-0, 2731-8, 18781-0, 69293-3, 18505-2, BMP, 5196-1, 23333-6, 5193-8, 6969-0, UPCR, SIFE, 31018-6, 6968-2, 2777-1 #### [facility] ([id number]) [address], [address] [place] [address] #### 00189-0 #### [facility] ([id number]) [address] [place] [address]PLFFMK PROFILE INTERPUnremarkable pattern and quantitation, no monoclonal bands.NormalProMedica Aurora Las Encinas HospitalComment on above:Performed By: #### CBC, 95565-5, 56904-6, 2731-8, 24334-0, 33192-1, 53354-6, BMP, 5196-1, 21053-1, 5193-8, 6969-0, UPCR, SIFE, 77017-7, 6968-2, 277-1 #### [facility] ([id number]) [address], [address] [place] [address] #### 14154-8 #### [facility] ([id number]) [address] [place] [address]WBNYEOOYPIhm 67-63-2561Xctdvfqvz Ql (U)NegativeNormalNEG Pro[facility] Las Encinas HospitalComment on above:Performed By: #### 27025-9, 2777-1, BMP, CBC, UPCR #### [facility] ([id number]) [address], [address] [place], [place] [address]BFJQG/HGBNegativeNormalNEGProBrecksville Va / Crille Hospitalca Aurora Las Encinas HospitalComment on above:Performed By: #### 53794-0, 2777-1, BMP, CBC, UPCR #### [facility] ([id number]) [address], [address] [place], [place] [address]Falrl (U)ORANGEAbnormalYELLOWProMedica San Jose HospitalComment on above:Performed By: #### 38709-4, 2777-1, BMP, CBC, UPCR #### [facility] ([id number]) [address], [address] [place], [place] [address]Yncmlcm Ql (U)NegativeNormalNEGProTexas Health FriscoComment on above:Performed By: #### 90508-0, 277-, BMP, CBC, UPCR #### [facility] ([id number]) [address], [address] [place], [place] [address]Skxnkrq Ql (U)NegativeNormalNEGProTexas Health FriscoComment on above:Performed By: #### 14039-8, 277-, BMP, CBC, UPCR #### [facility] ([id number]) [address], [address] [place], [place] [address]Zodwikoeo esterase Test strip Ql (U)NegativeNoalNEGHenry County HospitalComuniversity of michigan hospital on above:Performed By: #### 55724-3, 277-, BMP, CBC, UPCR #### [facility] ([id number]) [address], [address] [place], [place] [address]HVLLPRJSMEILOIhtihoaiSYVQZyjAilbdz Fremont HospitalComment on above:Performed By: #### 78981-8, 277-, BMP, CBC, UPCR #### [facility] ([id number]) [address], [address] [place], [place] [address]Hsxxuqg Ql (U)NegativeNormalNEGProTexas Health FriscoComment on above:Performed By: #### 80152-7, 277-1, BMP, CBC, UPCR #### [facility] ([id number]) [address], [address] [place], [place] [address]aF (U)5.5 [pH]Normal5.0-8.5PHighland District HospitalComment on above:Performed By: #### 01848-3, 2776-1, BMP, CBC, UPCR #### [facility] ([id number]) [address], [address] [place], [place] [address]Sbclbwu Ql (U)NegativeNormalNEGProTexas Health FriscoComment on above:Performed By: #### 85881-1, 2776-, BMP, CBC, UPCR #### [facility] ([id number]) [address], [address] [address]K.B.CELLS2 /hpfNormal0-5PHighland District HospitalComment on above:Performed By: #### 35952-2, 2776-09, BMP, CBC, UPCR #### [facility] ([id number]) [address], [address] [address]Nejmzboi gravity (U) [Rel density]1.588Rxexuz1.003-1.035 [facility] Encinas HospitalComment on above:Performed By: #### 61537-6, 2776-09, BMP, CBC, UPCR #### [facility] ([id number]) [address], [address] [address]UBZAERQW EPITHELIUM6 /hpfHigh0-5PHighland District Hospital Comment on above:Performed By: #### 30597-0, 2776-09, BMP, CBC, UPCR #### [facility] ([id number]) [address], [address] [address]TNHSMZDSOFOTBSUDvncvobwHQNWSBqzPqguza Fremont HospitalComment on above:Performed By: #### 59468-8, 2776-, BMP, CBC, UPCR #### [facility] ([id number]) [address], [address] [address]Uwgqioymhfyv (U) [Mass/Vol]mg/dLNormal<1.1PHighland District HospitalComment on above:Performed By: #### 50679-1, 2776-, BMP, CBC, UPCR #### [facility] ([id number]) [address], [address] [place], [place] [address]Y.B.CELLS1 /hpfNormal0-5ProMedica [facility] Las Encinas HospitalComment on above:Performed By: #### 14616-3, 2777-, BMP, CBC, UPCR #### [facility] ([id number]) [address], [address] [place], [place] [address]Jltilzy D+Metabolites [Mass/Vol]on 02-64-8771CVCDOAZ D 25 HYD TOT18.5 ng/lYUti06-507NcbVzkmie [facility] Encinas HospitalComment on above:Result Comment: Vitamin D status 25 [place] Vitamin D Deficiency <20 ng/mL Insufficiency 20-29 ng/mL Sufficiency 30-100 ng/mL Toxicity >100 ng/mL NOTE: A pediatric reference range has not been established by the rrts of this kit. The [place] [employer] recommends a Vitamin D level of = or >20ng/mL in infants and children.Performed By: #### 28118-9, 27703-28, BMP, CBC, UPCR #### [facility] ([id number]) [address], [address] [address]NW RETROPERITONEAL COMPLETEon 61-97-5717NO RETROPERITONEAL COMPLETEUS RETROPERITONEAL COMPLETE HISTORY: A 28-year-old [...] by Misael Knox MD on 07/19/2024 5:08 PMNormalProTexas Health FriscoBASI METABOLIC PANLon 26-68-2298Yknft gap [Moles/Vol]9 mmol/LNormal5-15 [facility] Hospitaledica [facility] Encinas HospitalComment on above:Performed By: #### 21405-9, 2777-1, BMP, CBC, UPCR #### [facility] ([id number]) [address], [address] [place], [place] [address]Vasylng [Mass/Vol]9.2 mg/dLNormal8.5-10.5PTulane–Lakeside Hospitalica Aurora Las Encinas HospitalComment on above:Performed By: #### 97411-6, 2777-1, BMP, CBC, UPCR #### [facility] ([id number]) [address], [address] [place], [place] [address]Caobilln [Moles/Vol]107 mmol/QSxbnzb51-065ApvBfvwclHenry County HospitalComment on above:Performed By: #### 88298-1, 2777-1, BMP, CBC, UPCR #### [facility] ([id number]) [address], [address] [place], [place] [address]YN6 [Moles/Vol]26 mmol/TKyjlxd91-63QleYughbsHighland District Hospital Comment on above:Performed By: #### 73477-4, 2777-, BMP, CBC, UPCR #### [facility] ([id number]) [address], [address] [place], [place] [address]Dhyohxsdqr [Mass/Vol]0.83 mg/dLNormal0.40-1.00Henry County HospitalComment on above:Result Comment: METHOD TRACEABLE TO IDMS STANDARD Performed By: #### 59909-1, 2777-, BMP, CBC, UPCR #### [facility] ([id number]) [address], [address] [place], [place] [address]sGVB (CKD-EPI) NON-RACE DEPENDENT>90Normal>59ProTexas Health FriscoComment on above:Result Comment: Reported eGFR is based on the CKD-EPI 2020 equation that does not use a race coefficient.Performed By: #### 04136-3, 2777-, BMP, CBC, UPCR #### [facility] ([id number]) [address], [address] [place], [place] [address]Jblmswd [Mass/Vol]97 mg/xMAxvosp18-75VorHjpnybHenry County Hospital Comment on above:Performed By: #### 21166-6, 2777-, BMP, CBC, UPCR #### [facility] ([id number]) [address], [address] [place], [place] [address]Chzajzznc [Moles/Vol]4.2 mmol/LNormal3.5-5.0Henry County HospitalComment on above:Performed By: #### 95310-9, 2777-, BMP, CBC, UPCR #### [facility] ([id number]) [address], [address] [place] [address]Hcqxho [Moles/Vol]142 mmol/QKkbzyl599-212EwoIwyaouHenry County HospitalComment on above:Performed By: #### 29125-0, 2776-09, BMP, CBC, UPCR #### [facility] ([id number]) [address], [address] [place], [place] [address]Jnyh nitrogen [Mass/Vol]18 mg/dLNormal5-23ProTexas Health FriscoComment on above:Performed By: #### 86127-7, 2776-09, BMP, CBC, UPCR #### [facility] ([id number]) [address], [address] [place], [place] [address]XMSIJHOX BLOOD COUNTon 31-61-0311Mtfigouwxtq distribution width (RBC) [Ratio]12.9 %Gdvlqd36.5-15.0Henry County HospitalComment on above: Performed By: #### 22183-0, 2776-09, BMP, CBC, UPCR #### [facility] ([id number]) [address], [address] [place], [place] [address]Jbdpvdbpub (Bld) [Volume fraction]42.6 %Amdile55-22JwcSwyloqTexas Health FriscoComment on above:Performed By: #### 52684-7, 2776-09, BMP, CBC, UPCR #### [facility] ([id number]) [address], [facility] [address] [place], [place] [address]Usoqeldqgc (Bld) [Mass/Vol]14.4 g/qSUdgvgv79.7-15.5PHighland District HospitalComment on above:Performed By: #### 40551-1, 2776-09, BMP, CBC, UPCR #### [facility] ([id number]) [address], [address] [place], [place] [address]FMN (RBC) [Entitic mass]32.3 zbPushax87-36VakUdwukfTexas Health FriscoComment on above:Performed By: #### 21987-0, 277-, BMP, CBC, UPCR #### [facility] ([id number]) [address], [address] [place] [address]HOEA (RBC) [Mass/Vol]33.8 g/pRLfsjhs64-64RdcQohjvyTexas Health FriscoComment on above:Performed By: #### 60870-9, 277-, BMP, CBC, UPCR #### [facility] ([id number]) [address], [address] [place], [place] [address]YCG (RBC) [Entitic vol]96 yFElkqpf74-094YzbPozgbg Fremont HospitalComment on above:Performed By: #### 21447-6, 2776-, BMP, CBC, UPCR #### [facility] ([id number]) [address], [address] [place], [place] [address]Jaocsuwn mean volume (Bld) [Entitic vol]9.0 fLNormal7-12 [facility]cin[facility] HospitalComment on above:Performed By: #### 58993-4, 277-, BMP, CBC, UPCR #### [facility] ([id number]) [address], [address] [place], [place] [address]Tslthxscx (Bld) [#/Vol]269 10*3/uLFgfnox965-435SqgMdckpg Fremont HospitalComment on above:Performed By: #### 37202-3, 277-, BMP, CBC, UPCR #### [facility] ([id number]) [address], [address] [place] [address]NOZ COUNT4.45 X10E12/LNormal3.80-5.20[facility] Comment on above:Performed By: #### 73510-2, 277-, BMP, CBC, UPCR #### [facility] ([id number]) [address], [address] [place], [place] [address]MVV (Bld) [#/Vol]5.1 10*3/uLNormal4.0-11.0Henry County HospitalComment on above:Performed By: #### 79033-8, 2777-1, BMP, CBC, UPCR #### [facility] ([id number]) [address], [address] [place] [address]IVEHKSAUIrd 59-64-3079Biwjpuupv [Mass/Vol]1.8 mg/dLNormal1.8-2.6 ProMSan Gabriel Valley Medical CenterComment on above:Performed By: #### 00357-2, 277-1, BMP, CBC, UPCR #### [facility] ([id number]) [address], [address] [place], [place] [address]QROHIVMXCCzw 87-97-7298Enbzaxyjd [Mass/Vol]3.7 mg/dLNormal 2.4-4.9Henry County HospitalComment on above:Performed By: #### 13159-7, 277-, BMP, CBC, UPCR #### [facility] ([id number]) [address], [address] [place], [place] [address]HYVESBA CREAT RATIOon 32-01-5452SRLYIL URINE XXVUQBQ447 mg/LHigh <120Henry County HospitalComment on above:Performed By: #### 53310-2, 2777- , BMP, CBC, UPCR #### [facility] ([id number]) [address], [address] [place], [place] [address]T/PRO/PROGRAM DIRECTOR SCOUTING RATIO CALC0.09Normal<0.2PHighland District Hospital Comment on above:Result Comment: Nephrotic Syndrome is associated with ratios >3.5Performed By: #### 94191-9, 2777-1, BMP, CBC, UPCR #### [facility] ([id number]) [address], [address] [place], [place] [address]KGDMC CREATININE,XDA886.44 mg/dLSamaritan HospitalalHenry County Hospital Comment on above:Performed By: #### 24452-2, 2777-1, BMP, CBC, UPCR #### [facility] ([id number]) [address], [address] [place], [place] [address]RGUHCHEFBNcl 50-41-0207Uhqiwzwey Ql (U)NegativeNormalNEG [facility]cin[facility] HospitalComment on above:Performed By: #### UA #### [facility] ([id number]) [address] [facility] [place], [place] [address]KTNOD/HGBNegativeNormalNEGProTexas Health FriscoComment on above:Performed By: #### UA #### [facility] ([id number]) [address] [place], [place] [address]Ijwew (U)YELLOWNormalYELLOWProTexas Health FriscoComment on above:Performed By: #### UA #### [facility] ([id number]) [address] [place], [place] [address]Akcogmp Ql (U)NegativeNormalNEGProTexas Health FriscoComment on above:Performed By: #### UA #### [facility] ([id number]) [address] [place], [place] [address]Pvesdwp Ql (U)NegativeNormalNEGProTexas Health FriscoComuniversity of michigan hospital on above:Performed By: #### UA #### [facility] ([id number]) [address], [address] [place], [place] [address]Dyugsrrsi esterase Test strip Ql (U)NegativeNormalNEGProTexas Health FriscoComuniversity of michigan hospital on above:Performed By: #### UA #### [facility] ([id number]) [address], [address] [place], [place] [address]YBYVANCVAIPHZHsfkgacfEGEPYmuSjoopw [facility]rem[facility] HospitalComuniversity of mich[facility] hospital on above:Performed By: #### UA #### [facility] ([id number]) [address] [place], [place] [address]Nvfwwnp Ql (U)NegativeNormalNEGHenry County HospitalComment on above:Performed By: #### UA #### [facility] ([id number]) [address], [address] [place], [place] [address]rE (U)5.5 [pH]Normal5.0-8.5PHighland District HospitalComment on above:Performed By: #### UA #### [facility] ([id number]) [address], [address] [place], [place] [address]Upqeczm Ql (U)TraceAbnormalNEGHenry County HospitalComment on above:Performed By: #### UA #### [facility] ([id number]) [address], [address] [place], [place] [address]V.B.CELLS1 /hpfNormal0-5PHighland District HospitalComment on above:Performed By: #### UA #### [facility] ([id number]) [address], [address] [place], [place] [address]Susofbve gravity (U) [Rel density]1.951Crkqhm3.003-1.035 [facility] County HospitalComment on above:Performed By: #### UA #### [facility] ([id number]) [address], [address] [place], [place] [address]QEDCHOGT WNADOKWTHD99 /hpfHigh0-5PHighland District Hospital Comment on above:Performed By: #### UA #### [facility] ([id number]) [address], [address] [place], [place] [address]UHILCZDTQNIIZDVinzkbEIRHEWvpBlcfxb [facility] HospitalComment on above:Performed By: #### UA #### [facility] ([id number]) [address], [address] [place], [place] [address]Tnzvsugucyye (U) [Mass/Vol]mg/dLNormal<1.1Pro[facility] San Jose HospitalComment on above:Performed By: #### UA #### [facility] ([id number]) [address], [address] [place], [place] [address]G.B.CELLS2 /hpfNormal0-5Pro[facility] Jose HospitalComment on above:Performed By: #### UA #### [facility] ([id number]) [address] [facility] [place], [place] [address]KPE,APTIMA HPV,AGE GDLNon 81-68-0899PZF GDLN ACOG TESTINGNote. [facility] HealthcareComment on above:TESTS RESULT FLAG UNITS REF RANGE LAB Clinician Provided Cytology Information Source.............Cervix;Endocervix No. of containers..01 ThinPrep Vial Age Algo ACOG Ligia... -26 10 FLAG LEGEND: L-Low Normal,H-High Normal,LL-Alert Low,HH-Alert High <-Panic Low,>-Panic High,A-Abnormal,AA-Critical Abnormal Performed at: 01 [facility] [facility] [address] Gillian Guillaume MD, IGP, RFX APTIMA HPV ASCUNote.NOMS HealthcareComment on above:TESTS RESULT FLAG UNITS REF RANGE LAB DIAGNOSIS: 02 NEGATIVE FOR INTRAEPITHELIAL LESION OR MALIGNANCY. Specimen adequacy: 02 Satisfactory for evaluation. Endocervical and/or squamous metaplastic cells (endocervical component) are present. Performed by: 02 Matt Martínez, Hot Air Furnace Installer Repairer ([facility]) . 02 Note: Note 02 The Pap [...] Low,>-Panic High,A-Abnormal,AA-Critical Abnormal Performed at: [address] [facility] [address] [place] [address] Gillian Guillaume MD, Performed at: = - [facility] [address], [place] [id number] Plate Worker: Gillian Guillaume MD, Phone: [phone] Performed at: [facility] [address] [id number] Plate Worker: Gillian Guillaume MD, Phone: [phone] BRUSH-SPATULA CERVIX ENDOCERVIX CLINISYNCNOMA HealthcareALL BUNon 09-93-1128Btzu nitrogen [Mass/Vol]6.0 mg/dLLow 7.0 - 18.0 mg/dLRIVERTON HOSPITAL HealthcareALL CBC WITH AUTO DIFFon 04-88-8404CTEEZSTAK ABSOLUTE AUTO0.0NOMA HealthcareBasophils/100 WBC (Bld)0.0 %Low0.2 - 2.0 %[facility] HospitalEosinophils/100 WBC (Bld)1.6 %0.9 - 7.0 %[facility] HospitalErythrocyte distribution width (RBC) [Ratio]12.7 %11.0 - 15.0 %[facility] HealthcareHematocrit (Bld) [Volume fraction]38.6 %36.0 - 48.0 %[facility] HospitalHemoglobin (Bld) [Mass/Vol]13.2 g/dL12.0 - 16.0 g/dLSoutheast Missouri HospitalIMMATURE GRANULOCYTES ABS AUTO 0.05HighNOLakeland Regional HospitalImmature granulocytes/100 WBC (Bld)0.6 %High0.0 - 0.5 % [facility] HospitalInterpretation and review of laboratory resultsAbnormalSoutheast Missouri HospitalLYMPHOCYTES ABSOLUTE AUTO0.9LowNOMS Avita Health SystemLymphocytes/100 WBC (Bld)9.8 %Low20.5 - 60.0 %[facility] Medical CenterH (RBC) [Entitic mass]33.1 pg26.7 - 34.0 pgJohn J. Pershing VA Medical CenterHC (RBC) [Mass/Vol]34.2 g/dL29.9 - 35.2 g/dLJohn J. Pershing VA Medical CenterV (RBC) [Entitic vol]96.7 fL81.0 - 99.0 fLSoutheast Missouri HospitalMONOCYTES ABSOLUTE AUTO0.4NOMS [facility]ita Health SystemMonocytes/100 WBC (Bld)4.2 %1.7 - 12.0 %[facility] [place] HospitalNEUTROPHILS ABSOLUTE AUTO7.3HighNOLakeland Regional HospitalNeutrophils/100 WBC (Bld)83.8 %High43.0 - 75.0 %[facility] HospitalPlatelet mean volume (Bld) [Entitic vol]11.0 fL9.5 - 13.5 fLSoutheast Missouri HospitalTB EO #0.1NOMS Avita Health SystemTB VRQ247LTMQDoctors Hospital of Springfield RBC3.99LowNOLakeland Regional HospitalTB WBC8.7NOMA HealthcareCLINISYNWESTERN MASSACHUSETTS HOSPITAL HealthcareALL URIC ACIDon 05-77-8453Mdnpr [Mass/Vol]3.8 mg/dL2.6 - 6.0 mg/dLSoutheast Missouri HospitalCCF Joie 53-53-6259MRV [Catalytic activity/Vol]25 U/L14 - 59 U/LNReynolds County General Memorial Hospital APTTon 41-10-3066hFKE Coag (Bld) [Time]25.2 [facility] Isaias 33-91-3014VUA [Catalytic activity/Vol]22 U/L15 - 37 U/LNUniversity HospitalMHPT FIBRINOGENon 76-32-0359HJCQAIDJNE372 mg/oZDlwl377 - 400 mg/dLRIVERTON HOSPITAL Healthcare Interpretation and review of laboratory resultsAbUniversity of Michigan HealthNo Panel Informationon 94-50-6428FXYQKWYILWVII HealthcareInterpretation and review of laboratory resultsAbUNC Health RockinghamMCOH PROTHROMBIN TIME INR W/O COUMon 13-45-4208OZ Coag (PPP) [Time]9.9 [facility] INR0.93[facility] HealthcareComment on above:DESIRED INR: 2.0-3.0 CONDITIONS NOT LISTED BELOW 2.5-3.5 FOR PROSTHETIC HEART VALVE REPLACEMENT 2.5-3.5 RECURRENT THROMBOSIS TB CREATININEon 91-96-3983Lavuzptyiq [Mass/Vol]0.51 mg/dLLow0.55 - 1.02 mg/dL NOMS HealthcareGFR/1.73 sq M.predicted CKD-EPI (S/P/Bld) [Vol rate/Area]>6060 - PINFSoutheast Missouri HospitalTB EGFR-NON AF MOSOTHO>6060 - PINResearch Belton [facility] DRUG SCREEN RAPID (URINE)on 34-19-4845DKPIAPHSYCF SCREEN URINENegativeNEGATIVENOMS HealthcareBARBITURATES SCREEN URINENegativeNEGATIVENOMS Healthcare BENZODIAZEPINES [...] URINENegativeNEGATIVENOMS HealthcareTBH URINE T PROTEIN CREAT RATIOon 66-82-8404KURTOFDRID URINE HBGUQG678.07 mg/dL20.00 - 300.00 mg/dL N[facility]S HealthcareInterpretation and review of laboratory resultsAbnormalNOMS HealthcareProtein (U) [Mass/Vol]22.3 mg/dLHighNINF - 11.9 mg/dLNOMS Healthcare PROTEIN CREATININE RATIO URINE0.20NOMS HealthcareCLINISYNCNOMS HealthcareUS OB BPP W NON-STRESSon 18-89-7470[place]kdMon[place], [place] [address] Ultrasound Report Signed Patient: AALIYAH CARVALHO MR#: [id number] : 1995 Acct:[id number] Age/Sex: 28 / F ADM Date: 03/30/24 Loc: [facility] 250-[address]: Juan C Stinson D.O. Ordering Physician: Juan C Stinson D.O. Date of Service: 03/30/24 Procedure(s): US OB BPP w non-stress Accession Number(s): [id number] cc: Juan C Stinson D.O.; Jay Sadler M.D. [address] [address] Patient Name: AALIYAH CARVALHO MRN: [id number] date: 1995 Sex: F Assigned Patient Location: [facility] Current Patient Location: [facility] Accession/Order Number: [id number] Exam Date: 03/30/2024 08:03 Report Date: 03/30/2024 [...] M.D. Signed By: 03/30/24915 DD/ 2 TD/TT: Skip Operator:TBHRadiology, Radiologist, MD - 03/30/2024 [place] [address] Ultrasound Report Signed Patient: AALIYAH CARVALHO MR#: [id number] : 1995 Acct:[id number] Age/Sex: 28 / F ADM Date: 03/30/24 Loc: [facility] 250-[address]: Juan C Stinson D.O. Ordering Physician: Juan C Stinson D.O. Date of Service: 03/30/24 Procedure(s): US OB BPP w non-stress Accession Number(s): [id number] cc: Juan C Stinson D.O.; Jay Sadler M.D. The [address] [address] Patient Name: AALIYAH CARVALHO MRN: [id number] date: 1995 Sex: F Assigned Patient Location: [facility] Current Patient Location: [facility] Accession/Order Number: [id number] Exam Date: 03/30/2024 08:03 Report Date: 03/30/2024 [...] M.D. Signed By: 03/30/24915 DD/ 2 TD/TT: Skip Operator: JOSE HealthcareRadiology Study observation (narrative)[facility] HealthcareUS OB BPP W NON-STRESSOrdered By: Radiologist Radiology on [id number] Work Phone: US OB GROWTHon [phone] [address] Ultrasound Report Signed Patient: AALIYAH CARVALHO MR#: [id number] : 1995 Acct:[id number] Age/Sex: 28 / F ADM Date: 03/30/24 Loc: [facility] 250-[address]: Juan C Stinson D.O. Ordering Physician: Juan C Stinson D.O. Date of Service: 03/30/24 Procedure(s): US OB growth Accession Number(s): [id number] cc: Juan C Stinson D.O.; Jay Sadler M.D. [address] [address] Patient Name: AALIYAH CARVALHO MRN: [id number] date: 1995 Sex: F Assigned Patient Location: [facility] Current Patient Location: [facility] Accession/Order Number: [id number] Exam Date: 03/30/2024 08:03 Report Date: 03/30/2024 [...] M.D. Signed By: 03/30/24919 DD/ 6 TD/TT: Skip Operator:TBHRadiology, Radiologist, MD - 03/30/2024 [place] [address] Ultrasound Report Signed Patient: AALIYAH CARVALHO MR#: [id number] : 1995 Acct:[id number] Age/Sex: 28 / F ADM Date: 03/30/24 Loc: [facility] 250-[address]: Juan C Stinson D.O. Ordering Physician: Juan C Stinson D.O. Date of Service: 03/30/24 Procedure(s): US OB growth Accession Number(s): [id number] cc: Juan C Stinson D.O.; Jay Sadler M.D. [place] [address] Patient Name: AALIYAH CARVALHO MRN: [id number] date: 1995 Sex: F Assigned Patient Location: [facility] Current Patient Location: [facility] Accession/Order Number: [id number] Exam Date: 03/30/2024 08:03 Report Date: 03/30/2024 [...] M.D. Signed By: 03/30/24919 DD/ 6 TD/TT: Skip Operator: [facility] HealthcareRadiology Study observation (narrative)[facility] HealthcareUS OB GROWTHOrdered By: Radiologist Radiology on [id number] Work Phone: US OB BPP W NON-STRESSon 74-91-4962[place], [place] [address] Ultrasound Report Signed Patient: AALIYAH CARVALHO MR#: [id number] : 1995 Acct:[id number] Age/Sex: 28 / F ADM Date: 03/23/24 Loc: US Attending Dr: Juan C Stinson D.O. Ordering Physician: Juan C Stinson D.O. Date of Service: 03/23/24 Procedure(s): US OB BPP w non-stress Accession Number(s): [id number] cc: Juan C Stinson D.O.; Jay Sadler M.D. [place] [id number] Patient Name: AALIYAH CARVALHO MRN: [id number] date: 1995 Sex: F Assigned Patient Location: [facility] Current Patient Location: Accession/Order Number: [id number] Exam Date: 03/23/2024 07:57 Report Date: 03/23/2024 [...] Womack M.D. Signed By: 03/23/24900 DD/ TD/TT: Skip Operator:TBHRadiologSushma merida MD - 03/23/2024 [place] [address] Ultrasound Report Signed Patient: AALIYAH CARVALHO MR#: [id number] : 1995 Acct:[id number] Age/Sex: 28 / F ADM Date: 03/23/24 Loc: US Attending Dr: Juan C Stinson D.O. Ordering Physician: Juan C Stinson D.O. Date of Service: 03/23/24 Procedure(s): US OB BPP w non-stress Accession Number(s): [id number] cc: Juan C Stinson D.O.; Jay Sadler M.D. The [place] [phone] Patient Name: AALIYAH CARVALHO MRN: [id number] date: 1995 Sex: F Assigned Patient Location: [facility] Current Patient Location: Accession/Order Number: [id number] Exam Date: 03/23/2024 07:57 Report Date: 03/23/2024 [...] M.D. Signed By: 03/23/24900 DD/ 0858 TD/TT: Skip Operator: JOSE HealthcareRadiology Study observation (narrative)[facility] HealthcareUS OB BPP W NON-STRESSOrdered By: Radiologist Radiology on 59-38-3703MUUS Kudo Work Phone: us OB BPP W NON-STRESSon 19-97-2495[place] [phone] Ultrasound Report Signed Patient: AALIYAH CARVALHO MR#: [id number] : 1995 Acct:[id number] Age/Sex: 28 / F ADM Date: 03/16/24 Loc: US Attending Dr: Juan C Stinson D.O. Ordering Physician: Juan C Stinson D.O. Date of Service: 03/16/24 Procedure(s): US OB BPP w non-stress Accession Number(s): [id number] cc: Juan C Stinson D.O.; Jay Sadler M.D. [address] [address] Patient Name: AALIYAH CARVALHO MRN: [id number] date: 1995 Sex: F Assigned Patient Location: [facility] Current Patient Location: Accession/Order Number: [id number] Exam Date: 03/16/2024 07:51 Report Date: 03/16/2024 [...] M.D. Signed By: 03/16/24910 DD/ 7 TD/TT: Skip Operator:ROBYNHRadiologmagnolia, Radiologist, MD - 03/16/2024 [place] [address] Ultrasound Report Signed Patient: AALIYAH CARVALHO MR#: [id number] : 1995 Acct:[id number] Age/Sex: 28 / F ADM Date: 03/16/24 Loc: US Attending Dr: Juan C Stinson D.O. Ordering Physician: Juan C Stinson D.O. Date of Service: 03/16/24 Procedure(s): US OB BPP w non-stress Accession Number(s): [id number] cc: Juan C Stinson D.O.; Jay Sadler M.D. The [place] [address] Patient Name: AALIYAH CARVALHO MRN: [id number] date: 1995 Sex: F Assigned Patient Location: [facility] Current Patient Location: Accession/Order Number: [id number] Exam Date: 03/16/2024 07:51 Report Date: 03/16/2024 [...] M.D. Signed By: 03/16/24910 DD/ 7 TD/TT: Skip Operator: JOSE HealthcareRadiology Study observation (narrative)JOSE HealthcareUS OB BPP W NON-STRESSOrdered By: Radiologist Radiology on 69-48-7816HPBD Healthcare Work Phone: US OB GROWTHon [phone] [address] Ultrasound Report Signed Patient: AALIYAH CARVALHO MR#: [id number] : 1995 Acct:[id number] Age/Sex: 28 / F ADM Date: 03/01/24 Loc: [facility] Attending Dr: Juan C Stinson D.O. Ordering Physician: Juan C Stinson D.O. Date of Service: 03/01/24 Procedure(s): US OB growth Accession Number(s): [id number] cc: Juan C Stinson D.O.; Jay Sadler M.D. [place] [address] Patient Name: AALIYAH CARVALHO MRN: [id number] date: 1995 Sex: F Assigned Patient Location: [facility] Current Patient Location: [facility] Accession/Order Number: [id number] Exam Date: 03/01/2024 09:51 Report Date: 03/01/2024 [...] was notified of these findings by the child care provider at time of imaging. Electronically authenticated by: CHELSEA DELCID Date: 03/01/2024 12:43 Dictated By: Chelsea Delcid M.D. Signed By: 03/01/24 1245 DD/ 1243 TD/TT: Skip Operator:TBHRadiology, Radiologist, - 03/01/2024 [place] [address] Ultrasound Report Signed Patient: AALIYAH CARVALHO MR#: [id number] : 1995 Acct:[id number] Age/Sex: 28 / F ADM Date: 03/01/24 Loc: [facility] Attending Dr: Juan C Stinson D.O. Ordering Physician: Juan C Stinson D.O. Date of Service: 03/01/24 Procedure(s): US OB growth Accession Number(s): [id number] cc: Juan C Stinson D.O.; Jay Sadler M.D. The [place] [address] Patient Name: AALIYAH CARVALHO MRN: [id number] date: 1995 Sex: F Assigned Patient Location: [facility] Current Patient Location: [facility] Accession/Order Number: [id number] Exam Date: 03/01/2024 09:51 Report Date: 03/01/2024 [...] was notified of these findings by the child care provider at time of imaging. Electronically authenticated by: CHELSEA DELCID Date: 03/01/2024 12:43 Dictated By: Chelsea Delcid M.D. Signed By: 03/01/24 1242 DD/ 1243 TD/TT: Skip Operator: JOSE HealthcareRadiology Study observation (narrative)NOM HealthcareUS OB GROWTHOrdered By: Radiologist Radiology on 10-83-8664DFJRSoutheast Missouri Hospital Work Phone: no Panel InformationOrdered By: Radiologist Radiology on 24-87-8069LCFGSoutheast Missouri Hospital Work Phone: no Panel Informationon 10-62-5684Tudcxiywe Study observation (narrative)NOM HealthcareUS OB ANATOMYon 10-55-4178[place]uw[place] [address] Ultrasound Report Signed Patient: AALIYAH CARVALHO MR#: [id number] : 1995 Acct:[id number] Age/Sex: 28 / F ADM Date: 12/16/23 Loc: [facility] Attending Dr: Juan C Stinson D.O. Ordering Physician: Juan C Stinson D.O. Date of Service: 12/16/23 Procedure(s): US OB anatomy Accession Number(s): [id number] cc: Juan C Stinson D.O.; Jay Sadler M.D. The [place] [phone] Patient Name: AALIYAH CARVALHO MRN: [facility]:[id number] date: 1995 Sex: F Assigned Patient Location: [facility] Current Patient Location: Accession/Order Number: [id number] Exam Date: 12/16/2023 14:39 Report Date: 12/17/2023 [...] M.D. Signed By: 12/17/2327 DD/ 3 TD/TT: Skip Operator:TBHRadiology, Radiologist, - 12/17/[address] [address] Ultrasound Report Signed Patient: AALIYAH CARVALHO MR#: [id number] : 1995 Acct:[id number] Age/Sex: 28 / F ADM Date: 12/16/23 Loc: [facility] Attending Dr: Juan C Stinson D.O. Ordering Physician: Juan C Stinson D.O. Date of Service: 12/16/23 Procedure(s): US OB anatomy Accession Number(s): [id number] cc: Juan C Stinson D.O.; Jay Sadler M.D. The [address] [address] Patient Name: AALIYAH CARVALHO MRN: [id number] date: 1995 Sex: F Assigned Patient Location: [facility] Current Patient Location: Accession/Order Number: [id number] Exam Date: 12/16/2023 14:39 Report Date: 12/17/2023 [...] M.D. Signed By: 12/17/23626 DD/ 3 TD/TT: Skip Operator: JOSE Chopra OB CERVICAL LENGTHon 69-98-8871[place]xn[place] [address] Ultrasound Report Signed Patient: AALIYAH CARVALHO MR#: [id number] : 1995 Acct:[id number] Age/Sex: 28 / F ADM Date: 12/16/23 Loc: [facility] Attending Dr: Juan C Stinson D.O. Ordering Physician: Juan C Stinson D.O. Date of Service: 12/16/23 Procedure(s): US OB cervical length Accession Number(s): [id number] cc: Juan C Stinson D.O.; Jay Sadler M.D. [place] [address] Patient Name: AALIYAH CARVALHO MRN: [id number] date: 1995 Sex: F Assigned Patient Location: [facility] Current Patient Location: Accession/Order Number: [id number] Exam Date: 12/16/2023 14:39 Report Date: 12/17/2023 [...] M.D. Signed By: 12/17/23626 DD/ 3 TD/TT: Skip Operator:TBHRadiology, Radiologist, - 12/17/2023 [place] [address] Ultrasound Report Signed Patient: AALIYAH CARVALHO MR#: [id number] : 1995 Acct:[id number] Age/Sex: 28 / F ADM Date: 12/16/23 Loc: [facility] Attending Dr: Juan C Stinson D.O. Ordering Physician: Juan C Stinson D.O. Date of Service: 12/16/23 Procedure(s): US OB cervical length Accession Number(s): [id number] cc: Juan C Stinson D.O.; Jay Sadler M.D. [place] [phone] Patient Name: AALIYAH CARVALHO MRN: [id number] date: 1995 Sex: F Assigned Patient Location: [facility] Current Patient Location: Accession/Order Number: [id number] Exam Date: 12/16/2023 14:39 Report Date: 12/17/2023 [...] M.D. Signed By: 12/17/23626 DD/ 3 TD/TT: Skip Operator: JOSE Chopra OB TRANSVAGINALojamin 10-24-6826VnuMon[place] [address] Ultrasound Report Signed Patient: AALIYAH CARVALHO MR#: [id number] : 1995 Acct:[id number] Age/Sex: 28 / F ADM Date: 09/18/23 Loc: US Attending Dr: Juan C Stinson D.O. Ordering Physician: Juan C Stinson D.O. Date of Service: 09/18/23 Procedure(s): US OB transvaginal Accession Number(s): [id number] cc: Juan C Stinson D.O.; Jay Sadler M.D. [place] [phone] Patient Name: AALIYAH CARVALHO MRN: [id number] date: 1995 Sex: F Assigned Patient Location: US Current Patient Location: Accession/Order Number: [id number] Exam Date: 09/18/2023 08:33 Report Date: 09/19/2023 [...] Signed By: 09/19/23 0018 DD/ 0015 TD/TT: Skip Operator:TBHRadiology, Radiologist, - 09/19/2023 [place] [address] Ultrasound Report Signed Patient: AALIYAH CARVALHO MR#: [id number] : 1995 Acct:[id number] Age/Sex: 28 / F ADM Date: 09/18/23 Loc: US Attending Dr: JuanC Stinson D.O. Ordering Physician: Juan C Stinson D.O. Date of Service: 09/18/23 Procedure(s): US OB transvaginal Accession Number(s): [id number] cc: Juan C Stinson D.O.; Jay Sadler M.D. The [place] [address] Patient Name: AALIYAH CARVALHO MRN: [id number] date: 1995 Sex: F Assigned Patient Location: US Current Patient Location: Accession/Order Number: [id number] Exam Date: 09/18/2023 08:33 Report Date: 09/19/2023 [...] Signed By: 09/19/23 0018 DD/ 001 TD/TT: Skip Operator: JOSE HealthcareRadiology Study observation (narrative)[facility] HealthcareUS OB TRANSVAGINALOrdered By: Radiologist Radiology on 17-35-2612IVCP Kudo Work Phone: pap ACOG PANEL 2: 21 to 29on 12-24-2022..NormalThe [facility] HospitalComment on above:Performed By: #### [id number] #### [facility] [address] [place] [address] Dr. Narendra Thorne Gdln ACOG Emndmji30-45JntfyrChsWhite HospitalComment on above:Performed By: #### [id number] #### [facility] [address] [place] [address] Dr. Narendra FranksDIAGNOSIS:CommentRegency Hospital Company on above: Result Comment: NEGATIVE FOR INTRAEPITHELIAL LESION OR MALIGNANCY.Performed By: #### [id number] #### [facility] [address] [place] [address] Dr. Narendra FranksMethodology:CommentNoCommunity Memorial Hospital on above: Result Comment: This liquid based ThinPrep(R) pap test was screened with the use of an image guided system.Performed By: #### [id number] #### [place] [address] [address] Narendra FranksNote:CommentRegency Hospital Company on above:Result Comment: The Pap smear is a screening test designed to aid in the detection of premalignant and malignant conditions of the uterine cervix. It is not a diagnostic procedure and should not be used as the sole means of detecting cervical cancer. Both false-positive and false-negative reports do occur. .Performed By: #### [id number] #### [facility] [address] [place] [address] Dr. Narendra FranksPerformed by:CommentRegency Hospital Company on above: Result Comment: Yao Smith [employer] Furnace Installer Repairer (ASCP)Performed By: #### [id number] #### [facility] [address] [place] [address] Dr. Narendra FranksReflex Criteria:CommentLima City HospitalComuniversity of michigan hospital on above:Result Comment: The HPV DNA reflex criteria were not met with this specimen result therefore, no HPV testing was performed. .Performed By: #### [id number] #### [facility] [address] [place] [address] Dr. Narendra FranksSpecimejamin adequacy:CommentRegency Hospital Company on above:Result Comment: Satisfactory for evaluation. Endocervical and/or squamous metaplastic cells (endocervical component) are present.Performed By: #### [id number] #### [facility] [address] [place] [address] Dr. Narendra Mcintyre AUTO DIFFon 93-18-1543PDBA #0.0 103/ulNormal0.0-0.1M[facility]-Hyde Memorial HospitalComment on above:Performed By: #### CBC #### [facility] [address] [place] [address] Dr. Narendra FranksBasophils/100 WBC (Bld)0.4 %Normal0.2-2.0[facility] Comment on above:Performed By: #### CBC #### [facility] [address] [place] [address] Dr. Narendra Mckeon #0.3 103/ulNormal0.0-0.7The [facility] HospitalComuniversity of michigan hospital on above: Performed By: #### CBC #### [facility] [address] [place] [address] Dr. Narendra Luisosinophils/100 WBC (Bld)3.5 %Normal0.9-7.0[facility] Comment on above:Performed By: #### CBC #### [facility] [address] [place] [address] Dr. Narendra Luisrythrocyte distribution width (RBC) [Ratio]14.1 %Biydfl74.0-15.0 [facility]de Memorial HospitalComment on above:Performed By: #### CBC #### [facility] [address] [place] [address] Dr. Narendra FranksHematocrit (Bld) [Volume fraction]38.2 %Ydouba45.0-48.0The [facility] HospitalComment on above:Performed By: #### CBC #### [facility] [address] [place] [address] Dr. Narendra FranksHemoglobin (Bld) [Mass/Vol]12.6 g/yEOzeqvd34.0-16.0The [facility] HospitalComment on above:Performed By: #### CBC #### [facility] [address] [place] [address] Dr. Narendra Magana #0.01 10e3/ulNormal0.00-0.03The [facility] HospitalComment on above:Performed By: #### CBC #### [facility] [address] [place] [address] Dr. Narendra Magana %0.1 %Normal0.0-0.5The [facility] HospitalComment on above: Performed By: #### CBC #### [facility] [address] [place] [address] Dr. Narendra Hogan #2.4 103/ulNormal1.2-3.8The [facility] HospitalComment on above:Performed By: #### CBC #### [facility] [address] [place] [address] Dr. Narendra Williamhocytes/100 WBC (Bld)30.4 %Rvzuis75.5-60.0The [facility] HospitalComment on above:Performed By: #### CBC #### [facility] [address] [place] [address] Dr. Narendra AguilarUAL DIFF REQNONormalThe [facility] HospitalComment on above: Performed By: #### CBC #### [facility] [address] [place] [address] Dr. Narendra Bhatia (RBC) [Entitic mass]30.4 ayGwuznz14.7-34.0The [facility] HospitalComment on above:Performed By: #### CBC #### [facility] [address] [place] [address] Dr. Narendra Keller (RBC) [Mass/Vol]33.0 g/kKAhioiq16.9-35.2The [facility] HospitalComment on above:Performed By: #### CBC #### [facility] [address] [place] [address] Dr. Narendra KellerV (RBC) [Entitic vol]92.0 sKPyxvbq01.0-99.0The [facility] HospitalComment on above:Performed By: #### CBC #### [facility] [address] [place] [address] Dr. Narendra Rivera #0.5 103/ulNormal0.3-0.8The [facility] HospitalComment on above:Performed By: #### CBC #### [facility] [address] [place] [address] Dr. Narendra Adamsocytes/100 WBC (Bld)6.3 %Normal1.7-12.0The [facility] Comment on above:Performed By: #### CBC #### [facility] [address] [place] [address] Dr. Narendra Kinney #4.7 103/ulNormal1.4-6.5The [facility] HospitalComment on above:Performed By: #### CBC #### [facility] [address] [place] [address] Dr. Narendra Mcgeeutrophils/100 WBC (Bld)59.3 %Lbvaxs49.0-75.0The [facility] HospitalComment on above:Performed By: #### CBC #### [facility] [address] [place] [address] Dr. Narendra Kirkpatricklet mean volume (Bld) [Entitic vol]10.5 fLNormal9.5-13.5The [facility] HospitalComment on above:Performed By: #### CBC #### [facility] [address] [place] [address] Dr. Narendra CarlinT272 103/cmCjxsal509-777Jdv [facility] HospitalComment on above: Performed By: #### CBC #### [facility] [address] [place] [address] Dr. Narendra SalmonC4.15 106/ulCritically low4.20-5.40The [facility] HospitalComment on above:Performed By: #### CBC #### [facility] [address] [place] [address] [address] Narendra FranksWBC8.0 103/ulNormal4.0-11.0The [facility] HospitalComment on above: Performed By: #### CBC #### [facility] [address] [place] [address] Dr. Narendra FranksCRPon 34-32-2913NYX [Mass/Vol]mg/LNormal<=1.0The [facility] HospitalComment on above:Performed By: #### CRP #### [facility] [address] [place] [address] Dr. Narendra FranksCT CSPINE WO CONon 22-35-9297KK CSPINE WO CONINDICATION: 26 years old; Female. [...] Electronically authenticated by: YESSENIA HICKEY Date: 2022-06-26 21:58NormParma Community General HospitalMONOon 99-79-4398Ymldemjkn (Bld) [#/Vol]NegativeNormalNEGATIVE The [facility] HospitalComment on above:Performed By: #### MONO, PREG #### [facility] [address] [place] [address] [address] Narendra FranksPREG HCG QUALon 55-65-3408ZOJEEDGMG, QUALNegativeNormalNEGATIVE The [facility] HospitalComment on above:Performed By: #### MONO, PREG #### [facility] [address] [place] [address] [address] Narendra FranksPROF CHEM 8 (BAS METB)on 72-09-3000Dvayp gap [Moles/Vol]9.8 mmol/LNormalThe [facility] Greene Memorialment on above:Performed By: #### BMP #### [facility] [address] [place] [address] [address] Narendra FranksCalcium [Mass/Vol]8.5 mg/dLNormal8.5-10.1[facility] Comment on above:Performed By: #### BMP #### [facility] [address] [place] [address] [address] Narendra FranksChloride [Moles/Vol]104 mmol/ODhterj77-066PzkMccullough-Hyde Memorial Hospital Comment on above:Performed By: #### BMP #### [facility] [address] [place] [address] [address] Narendra FranksCO2 [Moles/Vol]28.0 mmol/GInmrdh96.0-32.0[facility] Comment on above:Performed By: #### BMP #### [facility] [address] [place] [address] Dr. Narendra FranksCreatinine [Mass/Vol]0.77 mg/dLNormal0.55-1.02[facility] HospitalComment on above:Performed By: #### BMP #### [facility] [address] [place] [address] Dr. Narendra LuisGFR-AF MOSOTHO>60Normal>=60[facility] HospitalComment on above:Performed By: #### BMP #### [facility] [address] [place] [address] Dr. Narendra LuisGFR-NON AF MOSOTHO>60Normal>=60[facility] HospitalComment on above:Performed By: #### BMP #### [facility] [address] [place] [address] [address] Narendra FranksGlucose [Mass/Vol]90 mg/wITggras55-696PqlMccullough-Hyde Memorial Hospital Comment on above:Performed By: #### BMP #### [facility] [address] [place] [address] Dr. Narendra FranksPotassium [Moles/Vol]3.8 mmol/LNormal3.5-5.1The [facility] Comment on above:Performed By: #### BMP #### [facility] [address] [place] [address] Dr. Narendra FranksSodium [Moles/Vol]138 mmol/PKvgxvd209-584XngMccullough-Hyde Memorial Hospital Comment on above:Performed By: #### BMP #### [facility] [address] [place] [address] [address] Narendra Jerez nitrogen [Mass/Vol]15.0 mg/dLNormal7.0-18.0The [facility] HospitalComment on above:Performed By: #### BMP #### [facility] [address] [place] [address] [address] Narendra FranksUrea nitrogen/Creatinine [Mass ratio]19.5 mg/mgNormalThe [facility] HospitalComment on above:Performed By: #### BMP #### [facility] [address] [place] [address] [address] Narendra Mckinley RATE WESTERGRENon 08-56-1582WRK RATE25 mm/hrCritically high <=20The [facility] HospitalComment on above:Performed By: #### SEDR #### [facility] [address] [place] [address] [address] Narendra Robb WITH REFLEX TO ENAon 36-16-8270JZU WITH REFLEX TO ENANegative NormalNEGATIVEHudson County Meadowview HospitalComment on above:Performed By: #### CYNTHIA #### [facility] [address] [place], [place] [address]B-JEMAANFE PROTEINon 60-86-4249HMP [Mass/Vol]mg/LNormalHudson County Meadowview HospitalComment on above:Result Comment: REF VALUE < 1.00Performed By: #### CRP #### [facility] [address] [place], [place] [address]AWJYMSSCBE ANTIBODYon 94-37-6537FRFBAKSTBU ANTIBODY<1NormalHudson County Meadowview HospitalComment on above:Result Comment: THE TEST FOR ANTIBODIES [...] >=3 U/MLPerformed By: #### CITAB #### [facility] [address] [place], [place] [address]DWK-B70 TYPINGon 51-43-3859FJR-B27 TYPINGNegativeNormalUH Palisades Medical CenterComment on above:Result Comment: This test was developed without FDA review. The test performance characteristics were defined and validated by the [facility] Department of Pathology, under the accreditation guidelines of [facility].Performed By: #### HLB27 #### [facility] [address] [place], [place] [address]GMOIMINUPU FACTORon 35-25-3768WZRDHNTVPZ FACTOR<38Xkodrn1 - 15[facility] HospitalComment on above:Performed By: #### RF #### [facility] [address] [place], [place] [address]VHSYYVRWJXUKR RATE, ERYTHROCYTEon 43-31-2745CLFKYOPCWEWDV RATE, ERYTHROCYTE2 mm/hNormal0 - 20[facility] HospitalComment on above: Performed By: #### ESRWS #### [facility] [address] [place] [address] Vital Signs Date TimeVital SignValuePerforming KqcuvfjgrXhrzmwzi32-11-4949 09:33-0400Body yxinxr323.2 cmAnthony Cainher DPM Work Phone: [phone]08-11-2025 09:33-0400Body mass index (BMI) [Ratio]32.89 kg/e2Zcjcnox Rusher DPM Work Phone: [phone]08-11-2025 09:33-0400Body auqiwh16.25 kgAnthdaniel Rusher DPM Work Phone: [phone]01-23-2025 15:33-0500Diastolic blood qklznkgi65 mm[Hg]Cynthia Caro MD Work Phone: [facility]01-23-2025 15:33-0500Heart rate 91 /minCynthia Caro MD Work Phone: [facility]01-23-2025 15:33-0500Systolic blood hsvkpoic805 mm[Hg]Cynthia Caro MD Work Phone: [facility]01-23-2025 15:31-0500Body bvxpqa069.2 Luis Caro MD Work Phone: [facility] [employer] Xsadms90-23-6107 15:31-0500Body mass index (BMI) [Ratio]33.14 kg/h8NboqfCynthia Caro MD Work Phone: [facility] [employer] Hysngy91-87-6387 15:31-0500Body xajdpp30.98 kgCynthia Caro MD Work Phone: [facility]10-17-2024 10:09-0400Diastolic blood mm[Hg]Cynthia Caro MD Work Phone: [facility]10-17-2024 10:09-0400Heart rate 83 /minCynthia Caro MD Work Phone: [facility]10-17-2024 10:09-0400Systolic blood xltdexwi133 mm[Hg]Cynthia Caro MD Work Phone: [facility]10-17-2024 10:06-0400Body jtinig154.2 Luis Caro MD Work Phone: [facility] [employer] Dhelit61-77-3845 10:06-0400Body mass index (BMI) [Ratio]32.69 kg/e1LtjprCynthia Caro MD Work Phone: [facility] [employer] Iedcym49-61-1654 10:06-0400Body obkbew99.67 kgCynthia Caro MD Work Phone: [facility]10-08-2024 11:10-0400Body mass index (BMI) [Ratio]32.58 kg/m2Sharon STEVENS Work Phone: [facility]jimliqymb[facility]-2831 11:10-0400Body ulkuks38.35 kgSharon STEVENS Work Phone: [facility] HospitalVtuidoiogz86-48-8512 11:10-0400Diastolic blood mm[Hg]Sharon STEVENS Work Phone: [phone] [place], [place] [address]Wjutqdidrz93-42-9004 11:10-0400Systolic blood tnxyukno061 mm[Hg]Sharon Yo PA Work Phone: [facility] HospitalNiekbuivbr00-00-3826 11:30-0400Body .2 Rachell Yo PA Work Phone: [facility] HospitalOqksxjmobc97-02-0645 11:30-0400Body mass index (BMI) [Ratio]32.26 kg/m2Sharon Yo PA Work Phone: [facility] HospitalVhudvsryxl32-10-9284 11:30-0400Body btpixt62.44 kgSharon Yo PA Work Phone: [facility] HospitalOrvcbwehsr18-17-0964 11:30-0400Diastolic blood xosevcjt40 mm[Hg]Sharon Yo PA Work Phone: [facility] HospitalTisaidaqyh32-45-7042 11:30-0400Systolic blood tsdkhomf102 mm[Hg]Sharon Yo PA Work Phone: [facility] HospitalRetaxgwqth75-52-0882 09:05-0400Body hzyszo708.18 Matt Claros Other [employer] Other 09-09-2023 09:05-0400Body mass index (BMI) [Ratio] 29.19 kg/g3YhgytValeria Claros Other [employer] Other 09-09-2023 09:05-0400Body sptwsqeplzd38.5 [degF]Valeria Claros Other [employer] Other 09-09-2023 09:05-0400Body dlzcgu22.55 kgValeria Claros Other [employer] Other 09-09-2023 09:05-0400Diastolic blood litiawtb78 mm[Hg] Valeria Claros Other [employer] Other 09-09-2023 09:05-0400Respiratory rate18 /minValeria Claros Other [employer] Other 09-09-2023 09:05-0851IrZ4% (BldA) [Mass fraction]98 % Valeria Claros Other [employer] Other 09-09-2023 09:05-0400Systolic blood vuateppu293 mm[Hg] Valeria Claros Other [facility] [employer] Other Encounters Encounter DateEncounter TypeCare ProviderFacilityStart: 07-26-2025 End: 21-16-3880ztqrxtufonIgwzswg R NILLFacility:[facility] HospitalevueStart: 07-26-2025 End: 10-87-7541Fnngwvc encounter procedureMichael R NILL [phone]-NgtffSal[facility] [place] Start: 94-01-2864abnhfldrbnTpgftrw NILLFacility:[facility] HospitalKrissytart: 05-08-2025 End: 25-45-5320Timisn flowsheetAnthony S Rusher DPM Work Phone: [facility] PodiatryStart: 05-08-2025 End: 79-52-1214Qyxvwv flowsheetAnthony S Rusher DPM Work Phone: noV[facility] [place] PodiatryStart: 05-08-2025 End: 54-13-2389Zwdpkd outpatient new 30 minutesAnthony S Rusher DPM Work Phone: noHow[facility] PodiatryComment on above:Valgus deformity, not elsewhere classified, left ankle (Primary Dx); Posterior tibial tendinitis of left lower extremity; Posterior tibial tendinitis of right lower extremity; Instability of left ankle joint; Equinus contracture of left ankle; Difficulty walking; Sinus tarsi syndrome of left footStart: 05-08-2025 End: 02-74-3984cfazsgaquoVRDIUHX S RUSHERNot AvailableStart: 10-20-2024 End: 23-70-9582Uxsyol outpatient visit 25 minutesCynthia Caro MD Work Phone: [facility] Comment on above:Autosomal dominant polycystic kidney disease (Primary Dx)Start: 10-19-2024 End: 36-37-6695Lvwzydzux encounterScanning Provider [facility] HospitaloStart: 10-14-2024 End: 31-28-6982Djlpsqats encounterBropearl Tena [facility] HospitaloStart: 10-11-2024 End: 87-87-4903tlwqigteyyUWWJYVi [facility]OMercy [facility] HospitalStart: 07-19-2024 End: 98-17-9784kypljojjksXOUMWRyan CAROMercy [facility] HospitalStart: 07-14-2024 End: 33-79-2673Fxpixy outpatient new 45 Rosalba Caro MD Work Phone: [facility] Comment on above:Autosomal dominant polycystic kidney disease (Primary Dx); PKD (polycystic kidney disease)Start: 07-13-2024 End: 18-50-3571gpwlkpgiffFGVNCVi CAROMercy [facility] HospitalStart: 07-06-2024 End: 80-51-7016Ggbsswdrv encounterHuma Tena [facility] HospitaloStart: 07-05-2024 End: 42-36-8795Ytixef Diego STEVENS Work Phone: noMS BCP OBStart: 07-05-2024 End: 11-28-0996Smzzbl Diego STEVENS Work Phone: [facility] BCP OBStart: 07-05-2024 End: 78-72-9658Jtmjhvbyi Result Justino STEVENS Work Phone: [facility] External Department UnsolicitedStart: 07-05-2024 End: 44-26-3504Qcybpyk encounter procedureSharon STEVENS Work Phone: [facility] HealthcareStart: 07-05-2024 End: 79-73-8550Jlgwexbm preventive med est patient 18-39 yrsSharon STEVENS Work Phone: noms BCP OBComment on above:Well woman exam with routine gynecological examStart: 07-05-2024 End: 51-84-9962ieagwmrslaLXJ RAMEYNot AvailableStart: 05-17-2024 End: 32-04-2222vnhxckcvbgLTQ RAMEYNot AvailableStart: 05-17-2024 End: 19-43-7083Jyahtjknca care visitSharon STEVENS Work Phone: noms BCP OBComment on above:6 weeks follow- up (Primary Dx)Start: 04-21-2024 End: 54-54-8901Xnoiip Kelvin Caro MD Work Phone: [facility] Comment on above:PKD (polycystic kidney disease) (Primary Dx)Start: 04-18-2024 End: 99-43-7637Xfgxvsnun encounterScanning Provider ExternalPHN [facility]start: 03-30-2024 End: 68-92-9132Kauzlayzb Result EncounterCorey Shantell DO Work Phone: noms External Department UnsolicitedStart: 03-30-2024 End: 22-63-5717Eoxscszlg Result EncounterCorey Shantell DO Work Phone: noms External Department UnsolicitedStart: 03-23-2024 End: 90-78-4097Djcvwhwar Result EncounterCorey Shantell DO Work Phone: noms External Department UnsolicitedStart: 03-23-2024 End: 09-15-9436Ykltdcski Result EncounterCorey Shantell DO Work Phone: noms External Department UnsolicitedStart: 03-16-2024 End: 64-19-1764Lszzppgzs Result EncounterCorey Shantell DO Work Phone: noms External Department UnsolicitedStart: 03-16-2024 End: 63-20-1782Etquylmzr Result EncounterCorey Shantell DO Work Phone: noms External Department UnsolicitedStart: 03-01-2024 End: 67-05-9308Ypbizjcag Result EncounterCorey Shantell DO Work Phone: noms External Department UnsolicitedStart: 03-01-2024 End: 47-91-3092Titxqfgqq Result EncounterCorey Shantell DO Work Phone: noms External Department UnsolicitedStart: 12-17-2023 End: 41-29-5588Rjazlzovl Result EncounterCorey Shantell DO Work Phone: noms External Department UnsolicitedStart: 12-17-2023 End: 14-45-2489Kveniebvl Result EncounterCorey Shantell DO Work Phone: noms External Department UnsolicitedStart: 09-19-2023 End: 55-66-9688Dudezbgxe Result EncounterCorey Shantell DO Work Phone: noms External Department UnsolicitedStart: 09-19-2023 End: 08-46-1014Izwliakay Result EncounterCorey Shantell DO Work Phone: noms External Department UnsolicitedStart: 06-06-2023 End: 72-25-5253iqlkzkkcwjVwjyx Keller Other [facility] [employer] Other Start: 00-53-4057Lvocwx outpatient new 20 minutesAmber HarlanFPG Urgent Care ClydeStart: 12-17-2022 End: 53-61-7534faenuxofskHN JUAN C SHANTELL .Facility:H1Srzgp: 06-26-2022 End: 19-02-7323ibsnnqhbwjWB NONE LISTED REQUESTFacility:H1 Procedures DateProcedureProcedure DetailPerforming ClinicianStart: 05-08-2025 End: 61-35-2946Wvqzszaqfs examination ankle 2 viewsAnthony S Rusher DPM Work Phone: Start: 00-28-1649Nacndmzzyu examination ankle 2 views Db Crockett DPM Work Phone: Start: 73-08-6370RVN,APTIMA HPV,AGE GDLNAmy Alex PA Work Phone: Start: 66-61-8374Puhviikksnz observation [Identifier] in Cervix by Cyto Nasim Caro MD Work Phone: Start: 03-77-1141QHU URINE T PROTEIN CREAT RATIOCorey Shantell DO Work Phone: Start: 47-37-5112IYF BUNCorey Shantell DO Work Phone: Start: 57-12-6861NYA CBC WITH AUTO DIFFCorey Shantell DO Work Phone: Start: 16-43-2982QRW URIC ACIDCorey Shantell DO Work Phone: Start: 49-65-3998ACN ALTCorey Shantell DO Work Phone: Start: 01-96-5572YRI APTTCorey Shantell DO Work Phone: Start: 77-24-4851DVY ASTCorey Shantell DO Work Phone: Start: 41-89-0449SNIY FIBRINOGENCorey Shantell DO Work Phone: Start: 97-56-3389AMZMSO PROTHROMBIN TIME INR W/O COUM Juan C Shantell DO Work Phone: Start: 02-59-4329DCW CREATININECorey Shantell DO Work Phone: Start: 29-61-1890JIG DRUG SCREEN RAPID (URINE)Juan C Shantell DO Work Phone: Start: 84-09-9924GE OB GROWTHCorey Shantell DO Work Phone: Start: 44-86-1357YA OB BPP W NON-STRESSCorey Shantell DO Work Phone: Start: 97-41-5134PP OB BPP W NON-STRESSCorey Shantell DO Work Phone: Start: 08-93-7432HS OB BPP W NON-STRESSCorey Shantell DO Work Phone: Start: 16-10-6655AJ OB GROWTHCorey Shantell DO Work Phone: Start: 57-61-7870IU OB ANATOMYCorey Shantell DO Work Phone: Start: 48-68-0778OW OB CERVICAL LENGTHCorey Shantell DO Work Phone: Start: 29-53-7248OS OB TRANSVAGINALCorey Shantell DO Work Phone: Start: 37-48-3495NwooirhabyrDjurjmo NILL Start: 35-67-4643EdfmlekefygdcxapqbliqicwkhInzipfh NILL Excision of lipoma of backMichael NILL LaparoscopyMichael NILL Tonsillectomy and adenoidectomyMichael NILL Plan of Treatment DateCare ActivityDetailAuthorStart: 95-06-3577OYoH,Tdap and Td Vaccines (2 - Tdap)DTaP,Tdap and Td Vaccines (2 - Tdap)[facility] SystemStart: 74-65-2144Oybnxukmv for malignant neoplasm of cervixPap SmearProMedica [facility] SystemStart: 08-09-2025 End: 04-26-7930Ktnsbqv encounter jrrxyywau50/12/2025 3:00 PM EST Procedure Visit [facility] [address] [place] [id number] Sharon Yo PA [address] [place] [address] JOSE Elkins OBGYNStart: 71-92-3245Byzfb BMI ScreeningAdult BMI ScreeningAtrium Health Kings Mountaintart: 05-08-2025 End: 42-49-5826Ffjlwvjxqcyf / ancillary services managementNOHow[facility] Start: 05-08-2025 End: 26-79-9866Jvmxgjf encounter sbyknqzhe72/11/2025 9:30 AM EDT Office Visit [facility] [address] [place] [address] Db Crockett, DPSamuel [address] [place] [address] ArrivedNOHoward County [facility] and [facility] Center PodiatryComment on above:ArrivedStart: 04-14-2025 End: 49-55-9708Jtxdr metabolic 2000 panel - Serum or PlasmaBasic Metabolic Panel Lab Routine Autosomal dominant polycystic kidney disease Expected: 04/14/2025 (Approximate), Expires: 10/15/2025[facility] Work Phone: Comment on above:Expected: 04/14/2025 (Approximate), Expires: 10/15/2025Start: 04-14-2025 End: 66-18-0964ZIA panel - Blood by Automated countCBC without diff Lab Routine Autosomal dominant polycystic kidney disease Expected: 04/14/2025 (Approximate), Expires: 10/15/2025Pro[facility] SystemComment on above:Expected: 04/14/2025 (Approximate), Expires: 10/15/2025Start: 04-14-2025 End: 51-06-1938Phuicquxx [Mass/volume] in Serum or PlasmaMagnesium Lab Routine Autosomal dominant polycystic kidney disease Expected: 04/14/2025 (Approximate), Expires: 10/15/2025Pro[facility] SystemComment on above:Expected: 04/14/2025 (Approximate), Expires: 10/15/2025Start: 04-14-2025 End: 86-28-1002Xxfhxgmfqae Hormone, intactParathyroid Hormone, intact Lab Routine Autosomal dominant polycystic kidney disease Expected: 04/14/2025 (Approximate), Expires: 10/15/2025[facility] SystemComment on above: Expected: 04/14/2025 (Approximate), Expires: 10/15/2025Start: 04-14-2025 End: 01-48-3292Spybhouxm [Mass/volume] in Serum or PlasmaPhosphorus Lab Routine Autosomal dominant polycystic kidney disease Expected: 04/14/2025 (Approximate), Expires: 10/15/2025Pro[facility] SystemComment on above:Expected: 04/14/2025 (Approximate), Expires: 10/15/2025Start: 04-14-2025 End: 78-01-0342Egckurj creat ratioProtein creat ratio Lab Routine Autosomal dominant polycystic kidney disease Expected: 04/14/2025 (Approximate), Expires: 10/15/2025Pro[facility] SystemComment on above:Expected: 04/14/2025 (Approximate), Expires: 10/15/2025Start: 04-14-2025 End: 11-50-9999Tsygtfw D 25 hydroxyVitamin D 25 hydroxy Lab Routine Autosomal dominant polycystic kidney disease Expected: 04/14/2025 (Approximate), Expires: 10/15/2025[facility] SystemComment on above:Expected: 04/14/2025 (Approximate), Expires: 10/15/2025Start: 10-20-2024 End: 92-95-0806Goozvzy encounter igdogvrno43/23/2025 3:30 PM EST Office Visit [facility] [address] [place] [phone] Cynthia Caro MD [address] [place] [address] [facility]: 09-08-2024 End: 73-13-0356Ytpyk metabolic 2000 panel - Serum or PlasmaBasic Metabolic Panel Lab Routine Autosomal dominant polycystic kidney disease Expected: 09/08/2024, Expires: 07/09/2025[facility] HospitalComment [facility] above:Expected: 09/08/2024, Expires: 07/09/2025Start: 09-08-2024 End: 61-53-1803DLG panel - Blood by Automated countCBC without diff Lab Routine Autosomal dominant polycystic kidney disease Expected: 09/08/2024, Expires: 07/09/2025[facility] HospitalComment on above:Expected: 09/08/2024, Expires: 07/09/2025Start: 09-08-2024 End: 77-29-6438Fsmwzrthn [Mass/volume] in Serum or PlasmaMagnesium Lab Routine Autosomal dominant polycystic kidney disease Expected: 09/08/2024, Expires: [facility] HospitalComment on above:Expected: 09/08/2024, Expires: 07/09/2025Start: 09-08-2024 End: 60-31-7679Icsdjflokcw Hormone, intactParathyroid Hormone, intact Lab Routine Autosomal dominant polycystic kidney disease Expected: 09/08/2024, Expires: 07/09/2025[facility] HospitalComment on above:Expected: 09/08/2024, Expires: 07/09/2025Start: 09-08-2024 End: 88-11-3333Yvzmblzvr [Mass/volume] in Serum or PlasmaPhosphorus Lab Routine Autosomal dominant polycystic kidney disease Expected: 09/08/2024, Expires: 1 [facility] HospitalComment on above:Expected: 09/08/2024, Expires: 07/09/2025Start: 09-08-2024 End: 68-31-9419Boxhwtf creat ratioProtein creat ratio Lab Routine Autosomal dominant polycystic kidney disease Expected: 09/08/2024, Expires: 07/09/2025 [facility] HospitalComment on above:Expected: 09/08/2024, Expires: 07/09/2025Start: 09-08-2024 End: 16-25-1507Irdxfuv D 25 hydroxyVitamin D 25 hydroxy Lab Routine Autosomal dominant polycystic kidney disease Expected: 09/08/2024,Expires: 07/09/2025 [facility] SystemComment on above:Expected: 09/08/2024, Expires: 07/09/2025Start: 07-21-2024 End: 93-41-2400OZH Abdominal vessels WO contrastMRA abdomen without contrast Imaging Routine Autosomal dominant polycystic kidney disease Expected:07/21/2024 (Approximate), Expires: 07/14/2025[facility] SystemComment on above: Expected: 07/21/2024 (Approximate), Expires: 07/14/2025Start: 07-16-2024 End: 66-63-6292EWY Screen w/ ReflexANA Screen w/ Reflex Lab Routine Autosomal dominant polycystic kidney disease Expected: 07/16/2024 (Approximate), Expires: 07/09/2025[facility] SystemComment on above:Expected: 07/16/2024 (Approximate), Expires: 07/09/2025Start: 07-16-2024 End: 62-53-6761Lola light chainsFree light chains Lab Routine Autosomal dominant polycystic kidney disease Expected: 07/16/2024 (Approximate), Expires: 07/09/2025[facility] SystemComment on above:Expected: 07/16/2024 (Approximate), Expires: 07/09/2025Start: 07-16-2024 End: 75-09-5809Komlhoahjw basement membrane IgG ABGlomerular basement membrane IgG AB Lab Routine Autosomal dominant polycystic kidney disease Expected: 07/16/2024 (Approximate), Expires: 07/09/2025[facility] SystemComment on above:Expected: 07/16/2024 (Approximate), Expires: 07/09/2025Start: 07-16-2024 End: 48-96-1123Imjcolepv B core antibody, totalHepatitis B core antibody, total Lab Routine Autosomal dominant polycystic kidney disease Expected:07/16/2024 (Approximate), Expires: 07/09/2025[facility] SystemComment on above: Expected: 07/16/2024 (Approximate), Expires: 07/09/2025Start: 07-16-2024 End: 00-54-4366Vismaexwa B Surface Antibody QuantitationHepatitis B Surface Antibody Quantitation Lab Routine Autosomal dominant polycystic kidney disease E xpected: 07/16/2024 (Approximate), Expires: 07/09/2025[facility] Comment on above:Expected: 07/16/2024 (Approximate), Expires: 07/09/2025Start: 07-16-2024 End: 00-43-0882Ycwspnoqb B surface antigenHepatitis B surface antigen Lab Routine Autosomal dominant polycystic kidney disease Expected: 07/16/2024 (Approximate), Expires: 07/09/2025[facility] SystemComment on above: Expected: 07/16/2024 (Approximate), Expires: 07/09/2025Start: 07-16-2024 End: 37-02-5150Nmhgqnihp C(HCV) Ab w/ Reflex to PCRHepatitis C(HCV) Ab w/ Reflex to PCR Lab Routine Autosomal dominant polycystic kidney disease Expected: 07/16/2024 (Approximate), Expires: 07/09/2025[facility] SystemComment on above:Expected: 07/16/2024 (Approximate), Expires: 07/09/2025Start: 07-16-2024 End: 93-44-0705IEY 1&2 AB/AG Screen (P24 AG)HIV 1&2 AB/AG Screen (P24 AG) Lab Routine Autosomal dominant polycystic kidney disease Expected: 07/16/2024 (Approximate), Expires: 07/09/2025[facility] SystemComment on above: Expected: 07/16/2024 (Approximate), Expires: 07/09/2025Start: 07-16-2024 End: 95-84-8128Wnhapzdzjfvpxvm ABMyeloperoxidase AB Lab Routine Autosomal dominant polycystic kidney disease Expected: 07/16/2024 (Approximate), Expires: 07/09/2025[facility] SystemComment on above:Expected: 07/16/2024 (Approximate), Expires: 07/09/2025Start: 07-16-2024 End: 03-96-1170Gjncgwuyyq 3 AB JD1Yyymxiyhna 3 AB PR3 Lab Routine Autosomal dominant polycystic kidney disease Expected: 07/16/2024 (Approximate), Expires: 07/09/2025[facility] SystemComment on above:Expected: 07/16/2024 (Approximate), Expires: 07/09/2025Start: 07-16-2024 End: 20-25-1647YW RetroperitoneumUltrasound retroperitoneal complete Imaging Routine Autosomal dominant polycystic kidney disease Expected: 07/16/2024 (Approximate), Expires: 09/08/2024[facility] Work Phone: Comment on above:Expected: 07/16/2024 (Approximate), Expires: 09/08/2024Start: 07-14-2024 End: 30-02-3423Bkoerjx encounter procedurePHN [facility]ontStart: 07-05-2024 End: 12-21-2862Gixmczo encounter procedureNOMS BCP OBComment on above:Arrived Start: 21-80-2742Typvytuhk vaccinationInfluenza VaccineShelby Memorial Hospital Start: 17-17-3140Bgdywvbhr for malignant neoplasm of cervixPap SmearParkview Health Bryan Hospital SystemStart: 24-95-0946DNjV,Tdap and Td Vaccines (1 - Tdap)DTaP,Tdap and Td Vaccines (1 - Tdap)[facility]: 46-93-4740Jrdiz BMI Follow Up PlanAdult BMI Follow Up PlanAtrium Health Kings Mountaintart: 90-31-1326Qarrf BMI ScreeningAdult BMI ScreeningAtrium Health Kings Mountaintart: 55-58-5634Yszpugquqm ScreeningDepression ScreeningAtrium Health Kings Mountaintart: 96-78-1876Zxhcmgi ScreeningTobacco ScreeningShelby Memorial Hospital End: 70-49-2165Qhjec metabolic 2000 panel - Serum or PlasmaBasic Metabolic Panel Lab Routine PKD (polycystic kidney disease) 1 Occurrences starting 04/21/2024 until 04/21/2025[facility] Work Phone: Comment on above:1 Occurrences starting 04/21/2024 until 04/21/2025 End: 54-67-9771UDI panel - Blood by Automated countCBC without diff Lab Routine PKD (polycystic kidney disease) 1 Occurrences starting 04/21/2024 until 04/21/2025[facility] SystemComment on above:1 Occurrences starting 04/21/2024 until 04/21/2025ytology Cervical or vaginal smear or scraping study Pap Smear Pathology and Cytology Routine Well woman exam with routine gynecological exam Ordered: 07/05/2024[facility] Work Phone: comment on above:Ordered: 07/05/2024 End: 13-52-5467Rceiehcnmug Neutrophilic Ab, SCytoplasmic Neutrophilic Ab, S Lab Routine Autosomal dominant polycystic kidney disease 1 Occurrences starting 07/14/2024 until 07/09/2025[facility] SystemComment on above:1 Occurrences starting 07/14/2024 until 07/09/2025 End: 08-07-2428Vmllslozk [Mass/volume] in Serum or PlasmaMagnesium Lab Routine PKD (polycystic kidney disease) 1 Occurrences starting 04/21/2024 until 2024ProMer[facility] Health [facility]rbana HospitalComment on above:1 Occurrences starting 04/21/2024 until 04/21/2025 End: 35-44-7519Oaadzsmuf [Mass/volume] in Serum or PlasmaPhosphorus Lab Routine PKD (polycystic kidney disease) 1 Occurrences starting 04/21/2024 until 04/21[facility] SystemComment on above:1 Occurrences starting 04/21/2024 until 04/21/2025 End: 19-12-1864Itoaicj creat ratioProtein creat ratio Lab Routine PKD (polycystic kidney disease) 1 Occurrences starting 04/21/2024 until 04/21/2025 [facility] SystemComment on above:1 Occurrences starting 04/21/2024 until 04/21/2025 End: 52-48-8408Ygrfg ImmunofixationSerum Immunofixation Lab Routine Autosomal dominant polycystic kidney disease 1 Occurrences starting 07/14/2024 until 07/09/2025[facility] SystemComment on above:1 Occurrences starting 07/14/2024 until 07/09/2025 End: 37-05-2877AwgkjensisMtggczzvve Lab Routine Autosomal dominant polycystic kidney disease 1 Occurrences starting 10/20/2024 until 10/15/2025Pro[facility] SystemComment on above:1 Occurrences starting 10/20/2024 until 10/15/2025 End: 76-44-7805QssiqixzcfNdtzutcdwm Lab Routine PKD (polycystic kidney disease) 1 Occurrences starting 04/21/2024 until 04/21/2025Pro[facility] SystemComment on above:1 Occurrences starting 04/21/2024 until 04/21/2025 End: 03-92-1024OlmlgspntrSpmefkiydx Lab Routine Autosomal dominant polycystic kidney disease 1 Occurrences starting 07/14/2024 until 07/09/2025Pro[facility] SystemComment on above:1 Occurrences starting 07/14/2024 until 07/09/2025 Immunizations Immunization DateImmunizationNotesCare ZkbuypajCkhjzrhh72-67-8359xznxizeiz virus vaccine, unspecified formulationCynthia Caor MD Work Phone: [facility] Payers DatePayer CategoryPayerPolicy [id number] Health Insurance [id number] Health Insurance [id number] Cross Blue Shield Managed Care - [place] [address] [id number] [facility] [id number]5-54-8701Ixbjoem [id number] 2.16.840.1.726360.3.57[id number] 2.16.840.1.912404.3.57[id number] 2.16.840.1.007859.3.57[id number] 2.840.1.938023.3.57[id number] 2.16.840.1.103074.3.57[id number] 2.16.840.1.285601.3.57[id number] 2.840.1.198546.3.57[id number] 2.16840.1.181417.3.57[id number] 2.16.840.1.906676.3.57[id number] 2.16840.1.216090.3.57[id number] 2.840.1.912338.3.57[id number] 2.16840.1.169244.3.57[id number] 2.840.1.258571.3.579.[id number] Social History DateTypeDetailFacilityUnknown if ever smokedNodermSearch Other Start: 09-14-2023 End: 61-60-9915Fbl [facility]igned At [facility] Hospitaltart: 09-09-2023 End: 20-72-9833Xwuksbq smoking status NHISNever smoked tobaccoRIVERTON HOSPITAL Healthcare Start: 60-11-6659Bqcyphw use and exposureSmokeless tobacco non-userNOMS HealthcareStart: 03-15-2024 End: 45-43-4787Qdpehgjze beverage intakeEx-drinker (finding)[facility] Start: 09-14-2023 End: 82-29-2263Vtjlivp of Social functionNOMS HealthcareStart: 76-56-8057Qncoixr CommentOnly on special occasionsNOMS HealthcareStart: 94-49-8797Ptf assigned at [facility] at universityNot on fileShelby Memorial HospitalTobacc smoking status NHISTobacco smoking consumption unknownParkview Health Bryan Hospital SystemStart: 06-63-7076SomGmdaed (finding)[facility] [employer] SystemStart: 77-23-0847Fysissh smoking statusNever [facility] General [facility] Systemexual OrientationChildren'S Hospital Of [facility] Surgery [place] Start: 08-23-2023 End: 89-44-3036Bwkfkajg to SARS-CoV-2 (event)[facility] Clinical Notes 06-06-2023 to 07-26-2025 Note Date & QbgvCxomOxbckrlp05-90-3594 NoteGeneral Surgery Office/Clinic Note Chief Complaint consultation [...] Mother. Polycystic kidney disease: Mother. Rheumatoid arthritis: Mother.[facility]beigh HospitalComment on above:Result Comment: Electronically Signed By: SITA RUVALCABA, Yessenia Sanchez\Date and Time Signed: 07/26/25 16:00 [id number] History of Present illness Narrative* Db Crockett [...] 30-39.9) Other specified related conditions, unspecified trimester ([facility]) Ovarian cyst PCK (polycystic kidney disease) TMJ [...] stresses across the midfoot. Patient has an dsuu-esv-gihazgw insert in her shoe today that is [...] understanding. Db Crockett DPM documented in this encounterSoutheast Missouri HospitalBwsnnafgjv24-98-0473 History of Present illness Narrative* Cynthia Caro [...] at home; her home blood pressures are telephone service representative of the blood pressures that were [...] results found for: IRONSAT , FERRITIN , [id number] , FOLATE [facility]: Lab [...] of your patients! Please contact me at [phone] (Office) or [phone] (Answering service) with any questions. CYNTHIA CARO MD [facility] This note was created with the assistance of a speech-recognition program. Although the intention is to generate a document that actually reflects the content of the visit, no guarantees can be provided that every mistake has been identified and corrected by editing. CYNTHIA CARO MD,PhD FACP [facility] ANY QUESTIONS FEEL FREE TO CALL: 1. OFFICE [phone] 2. ANSWERING SERVICE: [phone] documented in this encounterShelby Memorial Hospital01-22-2025 Miscellaneous Notes* Telephone Encounter - Eva Moura - 10/19/2024 11:48 AM EST LM to see if pt could come in at 8:30 am tomorrow instead of 3:30 pm. documented in this encounterShelby Memorial Hospital01-22-2025 Telephone encounter Note* Telephone Encounter - Eva Moura - 10/19/2024 11:48 AM EST LM to see if pt could come in at 8:30 am tomorrow instead of 3:30 pm. [facility]01-17-2025 Miscellaneous Notes* Telephone Encounter - Huma Tena CMA - 10/14/2024 3:33 PM EST Left message for patient to call the office back to confirm upcoming appointment 10/20 at 3:[address] Caro in [place] documented in this [facility]01-17-2025 Telephone encounter Note* Telephone Encounter - Huma Tena CMA - 10/14/2024 3:33 PM EST Left message for patient to call the office back to confirm upcoming appointment 10/20 at 3:[address] Caro in [place] [facility] Tvkqgu93-66-7538 History of Present illness Narrative* Cynthia Caro [...] results found for: IRONSAT , FERRITIN , [id number] , FOLATE [facility]eral [facility] Bone Labs: Lab [...] of your patients! Please contact me at [phone] (Office) or [phone] (Answering service) with any questions. CYNTHIA CARO MD [facility] This note was created with the assistance of a speech-recognition program. Although the intention is to generate a document that actually reflects the content of the visit, no guarantees can be provided that every mistake has been identified and corrected by editing. CYNTHIA CARO MD,PhD FACP [facility] ANY QUESTIONS FEEL FREE TO CALL: 1. OFFICE [phone] 2. ANSWERING SERVICE: [phone] documented in this encounterSouthwest General Health CenterMetrosis Software Development [facility] HospitalPuacci43-63-3164 Miscellaneous Notes* Telephone Encounter - Huma Tena CMA - 07/06/2024 4:02 PM EDT Left voicemail for patient to return call to confirm upcoming appointment on 07/14 at 10:[address] Caro in [place] and Informed patient lab work need completed prior to uncoming appointment * Telephone Encounter - Eva Moura - 07/06/2024 4:02 PM EDT Pt called back and confirmed appt. Nephro- Del[place]? ([facility] probably 5 or more years ago) Other Spec- No Echo- [place] possibly Abd Img- No Labs- Going to [facility] 07/13/24 Reminders- Given documented in this encounterShelby Memorial Hospital10-09-2024 Telephone encounter Note* Telephone Encounter - Huma Tena CMA - 07/06/2024 4:02 PM EDT Left voicemail for patient to return call to confirm upcoming appointment on 07/14 at 10:[address] Caro in [place] and Informed patient lab work need completed prior to uncoming appointment [facility]10-09-2024 Telephone encounter Note* Telephone Encounter - Eva Moura - 07/06/2024 4:02 PM EDT Pt called back and confirmed appt. Nephro- Delashi? ([facility] probably 5 or more years ago) Other Spec- No Echo- [place] possibly Abd Img- No Labs- Going to [facility] 07/13/24 Reminders- Given [facility]10-08-2024 History of Present illness Narrative* HILDA [...] nursing note reviewed. Exam conducted with a president & founder present. Vitals: Estimated body mass index is [...] behalf of: HILDA Rebolledo documented in this encounterSoutheast Missouri HospitalJzdpvclerx98-58-9554 History of Present illness Narrative* HILDA Rebolledo [...] behalf of: HILDA Rebolledo documented in this encounterSoutheast Missouri HospitalRchqqkggbk21-04-6212 Miscellaneous Notes* Telephone Encounter - Eva Moura - 04/18/2024 9:31 AM EDT LM to schedule new pt appt. documented in this encounterShelby Memorial Hospital07-22-2024 Telephone encounter Note* Telephone Encounter - Eva Zeny - 04/18/2024 9:31 AM EDT LM to schedule new pt appt. [facility]06-04-2024 Miscellaneous Notes* Result Encounter Note - Randi Arteaga LPN - 03/01/2024 12:47 PM EDT Pt notified and is going to schedule growth scan for two weeks. She is also going to schedule for NST/BPP documented in this encounterSoutheast Missouri HospitalSsvgghvfom12-90-8544 Progress note* Result Encounter Note - Randi Arteaga LPN - 03/01/2024 12:47 PM EDT Pt notified and is going to schedule growth scan for two weeks. She is also going to schedule for NST/BPP [facility] [employer] Work Phone: [phone]) 517-679409-09-2023 Evaluation note* Encounter Date Diagnosis Assessment Notes [...] understanding and is agreeable with treatment plan [employer] Other Evaluation note* Diagnosis Well woman exam with routine gynecological exam Routine gynecological examination documented in this encounter [facility] HealthcareEvaluation note* Diagnosis 6 weeks follow-up- [...] removed off backSurgical Historywisdom teeth extract Surgical Jwecpckwdqxoziljejb4597Zzoamtep Uiojdzzbyfxllwrpal8051Buaqrbbiaxeczqn HistoryHTNHospitalization HistorymigraineHospitalization Historychild kuqxi4650 [employer] Other Hospital course Narrative No data available for this section [facility] General Surgery [place] [facility] Discharge instructions No data available for this section [facility] General Surgery [place] InstructionsNot on filedocumented in this encounter [facility] SystemInstructionsNot on filedocumented in this encounter [facility] SystemInstructionsNot on filedocumented in this encounter [facility] SystemProgress note No data available for this section [facility] General Surgery [place] Reason for visit Narrative* Consultation (Routine) - Pending ReviewSpecialtyDiagnoses / ProceduresReferred By ContactReferred To ContactNephrology Diagnoses PKD (polycystic kidney disease) Jay Sadler MD Phone: tel:[phone] fax: PHN [facility] [address] [place] [address] Phone: tel: fax: Referral IDStatusReasonStart DateExpiration DateVisits RequestedVisits [id number] Review Specialty Services Required [facility] Summary Purpose Family History No Family [...] section and content) DATE CREATED AUTHOR 07/19/2019 [facility] DATE CREATED AUTHOR AUTHOR'S ORGANIZ ATION 12/29/2022 [facility] DATE CREATED AUTHOR AUTHOR'S ORGANIZ ATION 10/15/2024 [facility] DATE CREATED AUTHOR AUTHOR'S ORGANIZ ATION 05/09/2025 [facility] DATE CREATED AUTHOR AUTHOR'S ORGANIZ ATION 07/28/2025 [facility] REASON FOR VISIT (unrecogniz ed section [...] DateEnd Date Jay Sadler MD [address] [place] [address] PCP - GeneralFamily Mbyfljke43/2/23Team MemberRelationshipSpecialtyStart DateEnd Date Jay Sadler MD [address] [place] [facility] [address] PCP - GeneralFamily Sjsgtvnk10/2/23Team MemberRelationshipSpecialtyStart DateEnd Date Jay Sadler MD [address] [place] [facility] [address] PCP - GeneralFamily Qabaszcu92/2/23Team MemberRelationshipSpecialtyStart DateEnd Date Jay Sadler MD [address] [place] [facility] [address] PCP - GeneralFamily Yahmzflp67/2/23Team MemberRelationshipSpecialtyStart DateEnd Date Jay Sadler MD [address] [place] [facility] [address] PCP - GeneralFamily Rgiojtjl02/16/24Team MemberRelationshipSpecialtyStart Date End Date Jay Sadler MD [address] [place] [facility] [address] PCP - GeneralFamily Ypdupysl49/16/24Team MemberRelationshipSpecialtyStart Date End Date Jay Sadler MD [address] [place] [facility] [address] PCP - GeneralFamily Xssakpnq54/16/24Team MemberRelationshipSpecialtyStart Date End Date Jay Sadler MD [address] [place] [facility] [address] PCP - GeneralFamily Jnrjgzkb24/16/24Team MemberRelationshipSpecialtyStart Date End Date Jay Sadler MD [address] [place] [facility] [address] PCP - GeneralmiSouthwell Medical Center04/19/25Team MemberRelationshipSpecialtyStart DateEnd Date Jay Sadler MD [address] [place] [facility] [address] PCP - [facility]04/19/25Team MemberRelationshipSpecialtyStart DateEnd Date Jay Sadler MD [address] [place] [facility] [address] PCP - [facility]04/19/25Team MemberRelationshipSpecialtyStart DateEnd Date Jay Sadler MD [address] [place] [facility] [address] PCP - [facility]04/19/25Team MemberRelationshipSpecialtyStart DateEnd Date Jay Sadler MD [address] [place] [facility] [address] PCP - [facility] [place]04/19/25 FOR RECORDS PERTAINING TO PATIENTS WHO ARE [...] BE BASED ON THE PRIMARY CLINICAL RECORDS. [facility] CenterrealSociable [facility]. provides no warranty or guarantee of the accuracy or completeness of information in this document.
== END 2025-08-17 11:08 | disposition home or self-care (01) ==
LOC: PST 11:07
PROVIDERS: PCP Family Medicine; Visit Provider Surgery
DX: Z01.818 Encounter for other preprocedural examination (principal); R10.31 Right lower quadrant pain; K62.5 Hemorrhage of anus and rectum; K62.89 Other specified diseases of anus and rectum

== ENCOUNTER 2025-08-30 06:58 | Day surgery (SDC) | payer OTHER, SELFPAY ==
--- NOTE | 2025-08-30 | OP_ITS ---
OPERATION DATE: 08/30/2025 PREOPERATIVE DIAGNOSIS: Right lower quadrant abdominal pain, intermittent rectal bleeding, hematochezia. POSTOPERATIVE DIAGNOSIS: Mild rectal inflammation. PROCEDURE: Colonoscopy to terminal ileum with biopsy of the terminal ileum and rectal biopsies. SURGEON: Vini Combs M.D. ANESTHESIA: Monitored anesthesia care. ESTIMATED BLOOD LOSS: Less than 1 mL. INDICATIONS AND CONSENT: Patient is a 30-year-old female with a two year history of intermittent right lower quadrant pain, crampy, worse prior to bowel movements, also intermittent hematochezia. Last colonoscopy was 2018, and which showed some mild inflammation of the terminal ileum. Indications, risks, benefits, alternatives of proceeding with colonoscopy were explained extensively to the patient, including the risks of bleeding, colon perforation or anesthetic complications. All of her questions were answered. Informed consent was obtained. PROCEDURE: Patient brought to the operating room, placed in the left lateral decubitus position. Monitored anesthesia care was provided. Rectal exam was performed which showed no masses or blood. The scope was inserted into the anal canal. Under direct visualization was advanced. With the aid of abdominal compression, it was advanced to the cecum where cecal markings were clearly identified. The terminal ileum was intubated, appeared grossly normal. A random biopsy was obtained with cold biopsy forceps, due to the history of previous inflammation. There was good hemostasis. Upon withdrawal of the scope, mucosal surfaces were carefully examined. There were no mass lesions or polyps. No inflammatory changes or ulcerations. No significant diverticulosis. Within the rectum, there was noted to be some mild erythema, consistent with mild inflammation. No ulcerations or lesions. Several biopsies were obtained with cold biopsy forceps with good hemostasis. The scope was retroflexed in the anal canal. There were some prominent rectal veins. No significant hemorrhoidal disease. No old or new blood. The scope was then withdrawn. Patient tolerated procedure well, was sent to the recovery area in good condition. Follow up colonoscopy will depend on the pathology results. CC: Jay Sadler M.D. SHABNAM
--- OUTSIDE RECORDS SUMMARY | 2025-08-30 07:02 | XMS_ITS | Clinical Summary ---
Author Organization [facility] Address [address] [place] [address] Care Team Providers Care Body Recall Instructor Name Role Phone Jay Sadler MD Primary Care Provider [phone] Allergies Active AllergyReactionsCriticalityNoted WjbvIlrhvkamMjrojihouDoctgkf83/13/2023 Medications MedicationSigDispense QuantityRefillsLast FilledStart DateEnd DateStatus Loratadine (Claritin) 10 MG capsule Take 10 mg by mouth DailyActive Active Problems ProblemNoted DateDiagnosed DateChronic ssapjtvm33/18/2023ETD (Eustachian tube dysfunction), eexvfqvli11/18/2023ilateral lower extremity edema09/09/2023 Congenital cystic kidney fkysbds3709/09/2023yspareunia in zinexk4909/09/2023 Hqcblebzdvorx01/13/0424Dfmribs76/13/2023Essential qfneyfuqpltg79/13/2023idney njgugiu1809/09/2023olycystic kidney nymxffp9209/09/2023ERD (gastroesophageal reflux disease)09/09/2023 Resolved Problems ProblemNoted DateDiagnosed DateResolved DateAcute pdrasouyobwwp12/13/2023 09/09/2023 Encounters DateTypeDepartmentCare SaxfOmzqtdrqjey40/21/2025Orders Only [facility] [address] [place] [address] Tamia Liu LPN 08/09/2025 3:00 PM ESTProcedure Visit [facility] [address] [place] [address] Sharon Johnson PA Well woman exam with routine gynecological exam11/12/2025Clinisync Result Encounter [facility] External Department Unsolicited Sharon Johnson PA 5Bamboo flowsheet [facility] [address] [place] [address] [place] [address] Sharon Johnson PA 08/08/2025Travelfrom Last 3 Months [...] Last Filed Vital Signs Vital SignReadingTime TakenCommentsBlood Mluevxiw543/7008/09/2025 3:15 PM EST Pulse--Temperature--Respiratory Rate--Oxygen Saturation--Inhaled Oxygen Concentration--Dyugac53 kg (205 lb)08/09/2025 3:15 PM PNMYsbgcv788.2 cm (5' 7 ) 05/08/2025 9:33 AM EDTBody Mass Index32.1108 9:33 AM EDT Plan of Treatment Not on file Procedures Procedure NamePriorityDate/TimeAssociated DiagnosisCommentsIGP,APTIMA HPV,AGE YGUJUlypsth81/12/2025 3:06 PM EST PAP TEST, NKQAYZOOMxmosxr2025 12:00 AM ESTfrom Last 3 Months Results * IGP,APTIMA HPV,AGE [...] at: 01 =G ?[facility] ?? [address] [place], [place] ??[address] ?? Gillian Guillaume MD, IGP, RFX APTIMA HPV ASCUNote.TBHComment: ?? TESTS ? RESULT ??FLAG ??UNITS ?REF RANGE ??LAB DIAGNOSIS: ?02 ?? NEGATIVE FOR INTRAEPITHELIAL LESION OR MALIGNANCY. Specimen adequacy: ?02 ?? Satisfactory for evaluation. ??Endocervical and/or squamous metaplastic ?? cells (endocervical component) are present. Performed by: ? 02 ?? Bro Holland, Laboratory Mechanical Technician (ASCP) . ? 02 Note: ? Note [...] pap test was interpreted ?? using the Flux(R) Genius(TM) Cervical Algorithm whole ?? slide imaging system. . ? 02 ?? The HPV DNA reflex criteria were not met with this specimen ?? result therefore, no HPV testing was performed. ?FLAG LEGEND: ?L-Low Normal,H-High Normal,LL-Alert Low,HH-Alert High <-Panic Low,>-Panic High,A-Abnormal,AA-Critical Abnormal Performed at: 02 WB ?[facility] ?? [address] [place], [place] ??[phone] ?? Gillian Guillaume MD, Performed at: ??=G - [facility] [address] [place] [address], [place] ??[phone] Flavoring Maker: Gillian Guillaume MD, Phone: ??[phone] Performed at: ??WB - [facility] [address] [place] [address], [place] ??[phone] Flavoring Maker: Gillian Guillaume MD, Phone: ??[phone] Specimen (Source)Anatomical Location / LateralityCollection Method / Volume Collection TimeReceived Time08/09/2025 3:06 PM EST08/09/2025 8:39 PM EST Narrative [facility] - 08/13/2025 4:12 PM EST BRUSH-SPATULA CERVIX ENDOCERVIX Authorizing ProviderResult TypeResult StatusSharon Englishey PAL BLOOD ORDERABLES Final ResultPerforming OrganizationAddressCity/State/ZIP CodePhone Number [facility] * PAP TEST, EXTERNAL (08/09/2025 12:00 AM EST) Narrative Authorizing ProviderResult TypeResult StatusFazio Nurse [facility] ObLAB CYTOLOGY ORDERABLESFinal ResultPerforming OrganizationAddressCity/State/ZIP CodePhone Number EXTERNAL LAB from Last 3 Months Insurance Care Teams Team MemberRelationshipSpecialtyStart DateEnd Date Jay Sadler MD [address] [place] [address] PCP - GeneralFamily Medicine04/19/25
--- OUTSIDE RECORDS SUMMARY | 2025-08-30 07:02 | XMS_ITS | Encounter Summary ---
Author Organization [facility] Address [address] [facility] [place] [address] Care Team Providers Care Control Panel Tester Name Role Phone Jay Sadler MD Primary Care Provider [phone] Encounter Details DateTypeDepartmentCare Team (Latest Contact Info)Balcuwiikwz78/21/2025Orders Only [facility] [address] [place] [address] aTmia Liu LPN [address] [place] [id number] Social History Tobacco UseTypesPacks/DayYears UsedDateSmoking Tobacco: NeverSmokeless Tobacco: NeverAlcohol UseStandard Drinks/WeekCommentsNot Currently1 (1 standard drink = 0.6 oz pure alcohol)Only on special occasionsCommentsUnknownSex and Gender InformationValueDate RecordedSex Assigned at BirthNot on fileLegal Sex Quevkx3012/10/2022 11:47 PM EDTGender IdentityNot on fileSexual OrientationNot on filedocumented as of this encounter Plan of Treatment Not on file documented as of this encounter Procedures Procedure NamePriorityDate/TimeAssociated DiagnosisCommentsPAP TEST, EXTERNAL Mytwxlf1308/09/2025 12:00 AM ESTdocumented in this encounter Results * PAP TEST, EXTERNAL (08/09/2025 12:00 AM EST) Narrative Authorizing ProviderResult TypeResult StatusFazio Nurse [facility] ObLAB CYTOLOGY ORDERABLESFinal ResultPerforming OrganizationAddressCity/State/ZIP CodePhone Number EXTERNAL LAB documented in this encounter Visit Diagnoses Not on filedocumented in this encounter Care Teams Team MemberRelationshipSpecialtyStart DateEnd Date Jay Sadler MD [address] [place] [address] PCP - GeneralFamily Medicine04/19/25documented as of this encounter
--- OUTSIDE RECORDS SUMMARY | 2025-08-30 07:02 | XMS_ITS | Clinical Summary ---
Author Organization [facility] Address [address] [place] [address] Phone Care Team Providers Care Ladle Cleaner Name Role Phone Jay Sadler MD Primary Care Provider [phone] Social History Tobacco UseTypesPacks/DayYears UsedDateSmoking Tobacco: Never Assessed CommentsUnknownSex and Gender InformationValueDate RecordedSex Assigned at Not on fileLegal UdxVhrxol91/26/2022 4:22 AM ESTGender IdentityNot on fileSexual OrientationNot on file Plan of Treatment Not on file Care Teams Team MemberRelationshipSpecialtyStart DateEnd Date Jay Sadler MD [address] [place] [address] PCP - General04/28/19
--- OUTSIDE RECORDS SUMMARY | 2025-08-30 07:02 | XMS_ITS | Clinical Summary ---
Author Organization [employer] Address [id number] [address] [place] [address] Care Team Providers Care Executive Chairman Of The Board Name Role Phone Jay Sadler MD Primary Care Provider [phone] Allergies Active AllergyReactionsCriticalityNoted ZjydPicbxyeyZpamppxdjHpulrxz02/13/2023 Medications MedicationSigDispense QuantityRefillsLast FilledStart DateEnd DateStatus NIFEdipine XL (PROCARDIA XL) 90 mg 24 hr tablet Take 1 tablet (90 mg total) by mouth in the morning. 90 tablet 5Active Social History Tobacco UseTypesPacks/DayYears UsedDateSmoking Tobacco: Never Assessed CommentsUnknownSex and Gender InformationValueDate RecordedSex Assigned at Not on fileLegal KxuWuiwks21/17/2024 10:10 AM EDTGender IdentityNot on file Sexual OrientationNot on file Last Filed Vital Signs Vital SignReadingTime TakenCommentsBlood Xbgsenvq227/78010/20/2024 3:33 PM EST Bfuqd679010/20/2024 3:33 PM ESTTemperature--Respiratory Rate--Oxygen Saturation-- Inhaled Oxygen Concentration--Ohvttx37 kg (211 lb 9.6 oz)10/20/2024 3:31 PM EST Xvlrbs239.2 cm (5' 7 )10/20/2024 3:31 PM ESTBody Mass Index33.14010/20/2024 3:31 PM EST Plan of Treatment DateTypeDepartmentCare Team (Latest Contact Info)Ntgvoezchpm01/22/2026 4:00 PM ESTOffice Visit [facility] [address] [place] [address] Sam Bain MD [address] [place] [address] Health MaintenanceDue DateLast DoneCommentsDepression Bwhodyvik04/15/2008Tobacco Hawdzpsoz18/15/2008dult BMI Follow Up Plan2014Influenza Vakajpf9205/29/2025 08/19/2019Adult BMI Bpvxwmaay48/23/83498610/20/2024Pap Smear/04/2024 DTaP,Tdap and Td Vaccines (2 - Tdap) Medical Devices Not on file Insurance Care Teams Team MemberRelationshipSpecialtyStart DateEnd Date Jay Sadler MD [address] [facility], [place] [address] [facility] - [facility] Zonglvcw58/16/24
--- OUTSIDE RECORDS SUMMARY | 2025-08-30 07:02 | XMS_ITS | CCD ---
Author Organization [facility] CliniSynv Care Team Providers Care Parts Picker Name Role Phone REQUEST, DR NONE LISTED [...] (1 source)RaspberryPropensity to adverse reactionstingles, and itchesNorth RetailTower Other (17 sources)raspberry allergenic extract; Translations: [RASPBERRY]Drug Allergy 70-32-8819WoutetcLMXFMethodist South Hospital Work Phone: (4 sources)raspberry extractDrug Cbklbzt51-05-0554HvrpusdHroHnipru Health System (1 source)No Known Medication Allergies; Translations: [No Known Medication Allergies]Propensity to adverse reactions (disorder)[facility] Repository Medications Current Medications MedicationDrug Class(es)DatesSig (Normalized)Sig (Original)fluticasone propionate 0.05 mg/actuat metered dose nasal spray (1 source)CorticosteroidStart: 04-24-2023 End: 86-70-4672omwe 1 spray(s) nasal route in the morningfluticasone (Flonase) 50 MCG/ACT nasal spray Administer 1 spray into each nostril in the morning. 05/17/2024 Discontinuedlabetalol hydrochloride 200 mg oral tablet (8 sources)beta-Adrenergic BlockerStart: 04-01-2024 End: 56-12-4084umap 1 tablet by mouth oncelabetalol (Normodyne) 200 MG tablet Take 1 tablet by mouth 1 (one) time 04/01/2024 05/08/2025 Discontinued (Therapy completed)loratadine 10 mg oral capsule (15 sources)take 1 capsule by mouth once dailyLoratadine (Claritin) 10 MG capsule Take 10 mg by mouth Daily ActivemethylPREDNISolone 4 mg oral tablet (1 source)CorticosteroidStart: 43-94-2470xunyktXVQQLEOwmkvs 4 MG as directed Orally for daily dose take half with breakfast, half with dinner for 6 days May, ActiveNIFEdipine 90 mg osmotic 24 hr extended release oral tablet (5 sources)Dihydropyridine Calcium Channel BlockerStart: 80-71-0406krcw 1 tablet by mouth every twenty-four hours in the morningNIFEdipine XL (PROCARDIA XL) 90 mg 24 hr tablet Take 1 tablet (90 mg total) by mouth in the morning. 90 tablet 3 10/20/2024 ActiveStart: 07-14-2024 End: 00-78-3261wthl 1 tablet by mouth every twenty-four hours in the morning NIFEdipine XL (PROCARDIA XL) 60 mg 24 hr tablet Take 1 tablet (60 mg total) by mouth in the morning. 90 tablet 3 07/14/2024 10/20/2024 DiscontinuedPrenatal MV-Min-Fe Fum-FA-DHA ( 1 PO) (8 sources) End: 85-71-0368Dbspvnhw MV-Min-Fe Fum-FA-DHA ( 1 PO) Take by mouth 05/08/2025 Discontinued (Therapy completed) MV-Min-Fe Fum-FA-DHA ( 1 PO) Take by mouth Active Problems Active Problems Problem ClassificationProblemDateDocumented DateEpisodic/ChronicAbdominal pain (3 sources)Upper abdominal pain; Translations: [Upper abdominal pain, unspecified]Onset: 81-25-8356ZrwwlggaHvefmyam foot deformities (2 sources)Acquired valgus deformity of left ankle; Translations: [Valgus deformity, not elsewhere classified,left ankle]97-75-3679XiuxovpxJsmytpm disorders (1 source)Ulcwrda93-63-1636NvgjhttAsgjiunyglpci (17 sources)Endometriosis (clinical); Translations: [Endometriosis, unspecified] Onset: 016232-85-6258ClacgjtPladmernaj disorders (18 sources)Gastroesophageal reflux disease without esophagitis; Translations: [Gastro-esophageal reflux disease without esophagitis]Onset: 09-09-2023 54-78-7227RxjmntkGoskqafsn hypertension (17 sources)Essential hypertension; Translations: [Essential (primary) hypertension]Onset: 137299-25-4376YwzcpveEycuzlkiwpurwonn hemorrhage (3 sources)Melena; Translations: [Hematochezia]Onset: 46-05-4363Qgorimep Genitourinary congenital anomalies (20 sources)Polycystic kidney, unspecified; 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]Onset: 938764-69-1424YznmpviTzhprusg; including migraine (1 source)Rpxinbcf07-59-1226VelayamPgtsbqte; including migraine (4 sources)Headache; including migraine; Translations: [HEADACHE UNSPECIFIED] Onset: 41-54-7356Ktqdnfbfwhyii and screening for infectious disease (1 source)Encounter for screening for human papillomavirus (HPV); Translations: [ENC SCREENING HUMAN PAPILLOMAVIRUS]Onset: 02-92-5352ZbzdjtxyZkflx acquired deformities (2 sources)Equinus contracture of the ankle; Translations: [Contracture, left ankle]32-79-6045SvtruhuBqwbo connective tissue disease (2 sources)Tendinitis of left posterior tibial tendon; Translations: [Posterior tibial tendinitis, left leg]28-81-9452BfxmvegvIvxpn connective tissue disease (2 sources)Tendinitis of right posterior tibial tendon; Translations: [Posterior tibial tendinitis, right leg]78-86-1638LteywjjsTbpxj female genital disorders (16 sources)Pain in female genitalia on intercourse; Translations: [Unspecified dyspareunia]Onset: 726171-45-5740XgqeoglOwdbe gastrointestinal disorders (1 source)Irritable bowel syndrome characterized by constipation; Translations: [Irritable bowel syndrome with constipation]ChronicOther gastrointestinal disorders (1 source)Constipation alternates with diarrhea; Translations: [Other specified symptoms and signs involving the digestive system and abdomen]EpisodicOther gastrointestinal disorders (1 source)Constipation; Translations: [Constipation, unspecified]EpisodicOther nervous system disorders (2 sources)Difficulty walking; Translations: [Difficulty in walking, not elsewhere classified]12-76-4572IqazsnuWwpcw non-traumatic joint disorders (2 sources)Instability of joint of left ankle; Translations: [Other instability, left ankle]22-72-5228RqiuoqusJhfeb non-traumatic joint disorders (2 sources)Sinus tarsi syndrome of left ankle; Translations: [Pain in left ankle and joints of left foot]17-23-6666JuidmrmgOzhvv nutritional; endocrine; and metabolic disorders (16 sources)Obesity; Translations: [Obesity, unspecified]Onset: 09-09-2023 83-63-2371LrbodxaTgqif nutritional; endocrine; and metabolic disorders (1 source)Body mass index 30+ - avgswoy12-63-0564IbhnwoaEzzvz nutritional; endocrine; and metabolic disorders (1 source)Obesity caused by energy cbsuyuees97-52-1723EjpfbrmGpotz nutritional; endocrine; and metabolic disorders (1 source)Unintentional weight loss; Translations: [Abnormal weight loss] EpisodicOther screening for suspected conditions (not mental disorders or infectious disease) (4 sources)Encounter for screening for malignant neoplasm of cervix; Translations: [ENC SCREENING MALIG NEOPLASM CERV]Onset: 74-18-4409ZlraoejbNruso upper respiratory disease (16 sources)Chronic rhinitis; Translations: [Chronic rhinitis]Onset: 09-14-2023 48-39-7982CyrtjbnEtepclcfm by nonmedicinal substances (1 source)Toxic effect of venom of bees, accidental (unintentional), initial encounterEpisodicResidual codes; unclassified (1 source)Sleep orxke93-66-2437Calgbvz Past or Other Problems Problem ClassificationProblemDateDocumented DateEpisodic/ChronicAcute bronchitis (16 sources)Acute bronchiolitis; Translations: [Acute bronchiolitis, unspecified]Onset: 09-09-2023 Resolved: 030426-72-9151TohrhuejKqfyk diseases of kidney and ureters (16 sources)Kidney disease; Translations: [Disorder of kidney and ureter, unspecified]Onset: 478374-44-5063BojsiuafObyus and delivery including normal (1 source) care status; Translations: [Encounter for routine follow-up]58-09-6164CptdxrlwGekohn media and related conditions (16 sources)Dysfunction of bilateral eustachian tubes; Translations: [Unspecified Eustachian tube disorder, bilateral]Onset: EpisodicResidual codes; unclassified (16 sources)Bilateral lower limb edema; Translations: [Localized edema]Onset: 487107-27-9329Ornvqcld Results Test NameValueInterpretationReference RangeFacilityAmbulatory Visit Summaryon 64-76-7760Gebnrauwva Visit SummaryAmbulatory Visit Summary AALIYAH CARVALHO :1995 [...] signed up for this yet, please contact [employer] at [phone] to get signed up today. Language Information Language assistance services are available as needed. [facility] Panel Informationon 30-49-6049Cfmtzmmki Study observation (narrative)[facility] HealthcareRadiology Study observation (narrative)[facility] Ankle - left 2 Viewson 05-08-2025 Imaging Result: AP, lateral views are weight-bearing. Decreased calcaneal inclination and increased talar declination. Talus is well seated within the ankle mortise. Os trigonum noted over the posterior talar process. No fractures or dislocations noted.[facility] Ankle - right 2 Viewson 65-30-1386OSEM HealthcareImaging Result: Entered in error, wrong [facility] - left 2 Views on 70-08-4282Rsqnooc Result: AP, medial oblique views are weight-bearing. Increased IM 1-2 angle. Slight joint space narrowing of the 1st MTP. No cystic changes noted. Approximately 30 percent talar head uncoverage. Os trigonum noted over the posterior subtalar joint region.[facility] Foot - right 2 Viewson 39-97-1139CWAF HealthcareImaging Result: Entered in error, wrong [facility] HospitalBASIC METABOLIC PANLon 88-61-8412Gvncq gap [Moles/Vol]8 mmol/LNormal5-15[facility] Comment on above:Performed By: #### CBC, 15881-6, 44650-9, 2731-8, 37853-9, 64343-2, 80598-3, BMP, 5196-1, 62251-0, 5193-8, 6969-0, UPCR, SIFE, 18328-0, 6968-2, 2777-1 #### [facility] ([id number]) [address] [facility], [address] [place] [address] #### 88472-6 #### [facility] ([id number]) [address] [place] [address] 32778Mgxouav [Mass/Vol]9.4 mg/dLNormal8.5-10.5[facility] MedicineComment on above:Performed By: #### CBC, 11899-7, 44513-6, 2731-8, 20244-2, 07948-8, 33310-4, BMP, 5196-1, 98739-0, 5193-8, 6969-0, UPCR, SIFE, 11561-7, 6968-2, 2776-1 #### [facility] ([id number]) [address] [facility], [address] [place] [address] #### 70518-9 #### [facility] ([id number]) [address] [place] [address] 94032Rwvcwlhv [Moles/Vol]107 mmol/YQodhjz78-069ElcYfujsa [facility] MedicineComment on above:Performed By: #### CBC, 02216-0, 63478-8, 2731-8, 75330-0, 67191-3, 25197-2, BMP, 5196-1, 03831-9, 5193-8, 6969-0, UPCR, SIFE, 14812-6, 6968-2, 2777-1 #### [facility] ([id number]) [address] [facility], [address] [place] [address] #### 56027-0 #### [facility] ([id number]) [address] [place] [address] 60914PM4 [Moles/Vol]28 mmol/XQlxcqy79-74WwbKfgdodTuscarawas Hospital Comment on above:Performed By: #### BERTA, 94750-3, 09694-2, 2731-8, 77381-5, 36806-0, 45422-8, BMP, 5196-1, 92047-3, 5193-8, 6969-0, UPCR, SIFE, 24466-3, 6968-2, 2777-1 #### [facility] ([id number]) [address] [facility], [address] [place] [address] #### 22092-8 #### [facility] ([id number]) [address] [place] [address] 08230Tnfclyrkuq [Mass/Vol]0.77 mg/dLNormal0.40-1.00[facility] HospitalComment on above:Result Comment: METHOD TRACEABLE TO IDMS STANDARD Performed By: #### BERTA, 68277-7, 26279-6, 2731-8, 46435-0, 51059-7, 41350-9, BMP, 5196-1, 49066-9, 5193-8, 6969-0, UPCR, SIFE, 34000-5, 6968-2, 2777-1 #### [facility] ([id number]) [address], [address] [place] [address] #### 17582-9 #### [facility] ([id number]) [address] [place] [address] 43784nAXP (CKD-EPI) NON-RACE DEPENDENT>90Normal>59ProChrist[facility] – MarshallComment on above:Result Comment: Reported eGFR is based on the CKD-EPI 2020 equation that does not use a race coefficient.Performed By: #### BERTA, 94542-5, 97057-3, 2731-8, 08097-2, 15336-8, 36159-5, BMP, 5196-1, 38900-2, 5193-8, 6969-0, UPCR, SIFE, 39992-7, 6968-2, 2777-1 #### [facility] ([id number]) [address] [place] [address], [facility] [address] [place] [address] #### 76063-4 #### [facility] ([id number]) [address] [place] [address] 89323Zbyluzv [Mass/Vol]89 mg/dFYabooa16-26CdoGcypfqChristus Good Shepherd [facility] Center – Marshall Comment on above:Performed By: #### CBC, 04986-2, 55283-8, 2731-8, 37775-4, 40602-6, 88047-1, BMP, 5196-1, 54733-0, 5193-8, 6969-0, UPCR, SIFE, 64747-1, 6968-2, 2777-1 #### [facility] ([id number]) [address] [place] [address], [address] [place] [address] #### 22346-2 #### [facility] ([id number]) [address] [place] [address] 05855Fakvpyjcp [Moles/Vol]3.7 mmol/LNormal3.5-5.0Pro[facility] – MarshallComment on above:Performed By: #### CBC, 96641-9, 90928-5, 2731-8, 37176-3, 52399-3, 48004-0, BMP, 5196-1, 04910-7, 5193-8, 6969-0, UPCR, SIFE, 34318-0, 6968-2, 2777-1 #### [facility] ([id number]) [address] [place] [address], [address] [place] [address] #### 25320-7 #### [facility] ([id number]) [address] [place] [address] 80169Qqtwth [Moles/Vol]143 mmol/MTeqhsj000-206HdzQsciik [facility]ville HospitalComment on above:Performed By: #### CBC, 21572-0, 65921-8, 2731-8, 66596-3, 66425-6, 14524-6, BMP, 5196-1, 43216-1, 5193-8, 6969-0, UPCR, SIFE, 10023-6, 6968-2, 2777-1 #### [facility] ([id number]) [address] [place] [address], [facility] [address] [place] [address] #### 34403-7 #### [facility] ([id number]) [address] [place] [address] 13997Qhtf nitrogen [Mass/Vol]12 mg/dLNormal5-ProChrist[facility] – MarshallComment on above:Performed By: #### CBC, 00973-8, 79336-4, 2731-8, 11214-5, 17098-3, 88571-1, BMP, 5196-1, 18275-2, 5193-8, 6969-0, UPCR, SIFE, 81251-4, 6968-2, 2777-1 #### [facility] ([id number]) [address] [place] [address], [place] [id number] #### 21378-3 #### [facility] ([id number]) [address] [place] [address] 28193RLITDDGG BLOOD COUNTon 76-04-4439Eqinjncxiuo distribution width (RBC) [Ratio]12.8 %Biqtgj20.5-15.0ProChrist[facility] – MarshallComment on above: Performed By: #### CBC, 77393-0, 55324-1, 2731-8, 74425-5, 80153-3, 47518-7, BMP, 5196-1, 38303-0, 5193-8, 6969-0, UPCR, SIFE, 33073-3, 6968-2, 2777-1 #### [facility] ([id number]) [address] [place] [address], [address] [place] [id number] #### 25671-7 #### [facility] ([id number]) [address] [place] [address] 73701Pfwjvgfplv (Bld) [Volume fraction]38.9 %Deheiw79-46JigPsxevdChristus Good Shepherd Medical Center – MarshallComment on above:Performed By: #### CBC, 86663-0, 42041-8, 2731- 8, 37679-6, 40276-2, 42003-8, BMP, 5196-1, 33709-7, 5193-8, 6969-0, UPCR, SIFE, 79244-2, 6968-2, 2777-1 #### [facility] ([id number]) [address] [place] [address], [address] [address] #### 60038-9 #### [facility] ([id number]) [address] [place] [address] 43479Egmfwrwnju (Bld) [Mass/Vol]13.3 g/mDBubpwf02.7-15.5[facility] Re[facility] MedicineComment on above:Performed By: #### CBC, 70033-0, 18119-5, 2731- 8, 41396-8, 20205-8, 00215-8, BMP, 5196-1, 25787-5, 5193-8, 6969-0, UPCR, SIFE, 08365-8, 6968-2, 2777-1 #### [facility] ([id number]) [address] [place] [address], [address] [place] [address] #### 03000-8 #### [facility] ([id number]) [address] [place] [address] 66699ZSY (RBC) [Entitic mass]32.0 svPoomlo92-55JmoBipgpxChristus Good Shepherd Medical Center – MarshallComment on above:Performed By: #### CBC, 46613-7, 03840-9, 2731-8, 71627-6, 95070-7, 64294-2, BMP, 5196-1, 30416-2, 5193-8, 6969-0, UPCR, SIFE, 84138-6, 6968-2, 2777-1 #### [facility] ([id number]) [address] [facility], [address] [place] [address] #### 97692-7 #### [facility] ([id number]) [address] [place] [address] 17184KZQE (RBC) [Mass/Vol]34.3 g/xNLudohy10-88ZjmOpjgzuChristus Good Shepherd Medical Center – MarshallComment on above:Performed By: #### CBC, 51227-4, 98068-4, 2731-8, 66598-0, 82543-1, 27385-5, BMP, 5196-1, 90485-2, 5193-8, 6969-0, UPCR, SIFE, 67872-0, 6968-2, 2777-1 #### [facility] ([id number]) [address] [facility], [address] [place] [address] #### 33007-0 #### [facility] ([id number]) [address] [place] [address] 16972XMN (RBC) [Entitic vol]93 fXEleekz24-749YjqFbyksn [facility]remont HospitalComment on above:Performed By: #### CBC, 04300-8, 24376-4, 2731-8, 44899-4, 93251-3, 19721-5, BMP, 5196-1, 05292-9, 5193-8, 6969-0, UPCR, SIFE, 53868-5, 6968-2, 2777-1 #### [facility] ([id number]) [address] [facility], [address] [place] [address] #### 95846-7 #### [facility] ([id number]) [address] [place] [address] 65008Edlmdimr mean volume (Bld) [Entitic vol]9.4 fLNormal7-12 [facility] MedicineComment on above:Performed By: #### CBC, 26156-8, 79823-4, 2731-8, 28782-1, 28052-9, 48559-2, BMP, 5196-1, 76667-2, 5193-8, 6969- 0, UPCR, SIFE, 84044-8, 6968-2, 2777-1 #### [facility] ([id number]) [address] [facility], [address] [place] [address] #### 81893-0 #### [facility] ([id number]) [address] [place] [address] 56897Mgjgeytaj (Bld) [#/Vol]268 10*3/nXKovzeg365-467UdnKtyzez [facility] HospitalComment on above:Performed By: #### BERTA, 37006-7, 02816-8, 2731- 8, 37326-1, 87466-8, 97182-9, BMP, 5196-1, 34410-0, 5193-8, 6969-0, UPCR, SIFE, 07740-4, 6968-2, 2777-1 #### [facility] ([id number]) [address] [facility], [address] [place] [address] #### 67936-8 #### [facility] ([id number]) [address] [place] [address] 83765LIA COUNT4.17 X10E12/LNormal3.80-5.20[facility] Comment on above:Performed By: #### CBC, 86802-8, 51673-7, 2731-8, 16410-9, 58473-3, 90019-0, BMP, 5196-1, 19080-1, 5193-8, 6969-0, UPCR, SIFE, 76825-7, 6968-2, 2777-1 #### [facility] ([id number]) [address], [address] [place] [address] #### 11502-1 #### [facility] ([id number]) [address] [place] [address] 51990RPJ (Bld) [#/Vol]5.5 10*3/uLNormal4.0-11.0Pro[facility] – MarshallComment on above:Performed By: #### CBC, 44257-4, 14694-6, 2731-8, 20546-7, 36951-2, 10445-9, BMP, 5196-1, 97030-8, 5193-8, 6969-0, UPCR, SIFE, 36329-3, 6968-2, 2777-1 #### [facility] ([id number]) [address], [address] [place] [address] #### 78171-5 #### [facility] ([id number]) [address] [place] [address] 21217MMAJ LIGHT CHAINSon 87-31-5770RZBE MARY ANN/LAMBD RATIO1.32Normal 0.26-1.65Pro[facility] – MarshallComment on above:Performed By: #### 39130-4, 2777-1, BMP, CBC, UPCR #### [facility] ([id number]) [address], [address] [place], [place] [address]EQIQ KAPPA LT CHAINS1.50 mg/dLNormal0.33-1.94Pro[facility] – MarshallComment on above:Performed By: #### 70793-5, 2777-1, BMP, CBC, UPCR #### [facility] ([id number]) [address], [address] [place], [place] [address]EGLY LAMBDA LT CHAINS1.14 mg/dLNormal0.57-2.63Pro[facility] HospitalComment on above:Performed By: #### 22540-0, 2777-1, BMP, CBC, UPCR #### [facility] ([id number]) [address], [address] [place], [place] [address]Wwhfoszpbm basement membrane IgG Qn (S)on 16-11-8674RLM IgG Ab <0.2Normal<1.0[facility] HospitalComment on above:Performed By: #### 52778-8, 2777-1, BMP, CBC, UPCR #### [facility] ([id number]) [address], [address] [place], [place] [address]HOW core Ab IA Qlon 48-24-8121LCNI HBcNon-ReactiveNormalNRCT ProMrussellville hospitala [facility] MedicineComment on above:Result Comment: NEW TEST METHOD Performed By: #### 59675-2, 2777-1, BMP, CBC, UPCR #### [facility] ([id number]) [address], [address] [place], [place] [address]TZT surface Ab IA Qnon 46-83-5666Vpem HBs quant.59.60 mIU/mL NormalProChristus Good Shepherd Medical Center – MarshallComment on above:Result Comment: NOTE Vaccinated: >=10.00 mIU/mL, Positive (Immune) Unvaccinated: <10.00 mIU/mL, Negative (Not Immune) Interpretive values have changed due to implementation of a new method. Values run higher than previous method.Performed By: #### 78286-2, 2777-1, BMP, CBC, UPCR #### [facility] ([id number]) [address], [address] [place], [place] [address]OEY surface Ag IA Qlon 87-21-7229WUUPOIWLH B SURF AGNon-Reactive NormalNRCTProChristus Good Shepherd Medical Center – MarshallComment on above:Result Comment: NEW TEST METHODPerformed By: #### 38669-7, 2777-1, BMP, CBC, UPCR #### [facility] ([id number]) [address], [address] [place], [place] [address]TMP Ab IA Qlon 32-50-3304XZBN HCV W/PCR REFLXNon-ReactiveNormal NRCTProMedica Bay Park HospitalComment on above:Result Comment: NEW TEST METHOD NOTE If recent infection suspected, recommend repeat testing (>2 months). Gozccc-jm-gcesaz ratio is <1.00.Performed By: #### 85101-2, 2777-1, BMP, CBC, UPCR #### [facility] ([id number]) [address], [address] [place], [place] [address]EYW 1+2 Ab+HIV1 p24 Ag IA Qlon 58-37-6186BLA 1 and 2 Ab/Ag ScreenNon-ReactiveNormalNRCTProMedica Bay Park HospitalComselect specialty hospital on above:Result Comment: NEW TEST METHOD [...] HIV test results or diagnoses.Performed By: #### 05727-8, 2777-1, BMP, CBC, UPCR #### [facility] ([id number]) [address], [address] [place], [place] [address]PFBAEEUGWph 66-85-0048Rlhjuotzc [Mass/Vol]1.7 mg/dLLow1.8-2.6 [facility] Hospitaledica [facility] Re[facility] MedicineComment on above:Performed By: #### 46338-0, 2777-1, BMP, CBC, UPCR #### [facility] ([id number]) [address], [address] [place], [place] [address]Mfnwpnekvmpjdbw Ab Qn (S)on 27-65-0014Gebopbgocwstuhi Ab<0.2 Normal<1.0[facility] HospitalComselect specialty hospital on above:Performed By: #### 34406-7, 2777-1, BMP, CBC, UPCR #### [facility] ([id number]) [address] [facility], [address] [place], [place] [address]Vkhgmwqslf cytoplasmic Ab panel IF (S)on 62-22-5683l-ANCA NegativeNormalNegativeOhioHealth Grant Medical Center on above:Performed By: #### 42598-2, 2777-1, BMP, CBC, UPCR #### [facility] ([id number]) [address] [facility], [address] [place], [place] [address]s-OHBHUjvcpaytPwbrzaRmgkzledPawMrkduf [facility] HospitalComment on above:Result Comment: NOTE Negative for cANCA and pANCA patterns by immunofluorescence. ADDITIONAL INFORMATION This test was developed and its performance characteristics determined by [facility] in a manner consistent with CLIA requirements. This test has not been cleared or approved by the U.S. Food and Drug Administration. Test Performed by: [place] [address] Cylinder Dyer: Hai Carias Ph.D.; CLIA# [id number] By: #### 59619- 9, 2777-1, BMP, CBC, UPCR #### [facility] ([id number]) [address] [place] [address] [place] [id number] Ab IA Ql (S)on [id number] Screen w/reflexNegative NormalNEGOhioHealth Grant Medical Center on above:Result Comment: Testing performed using multiplex flow immunoassay. Eleven different antigens associated with systemic autoimmune diseases (dsDNA,Sm,Sm/BAG MAKING MACHINE TENDER,BAG MAKING MACHINE TENDER,Chromatin, SSA,SSB,Lily-1,Scl70,Ribo P,Centromere B) are included in this screening test.Performed By: #### 14843-1, 2777-1, BMP, CBC, UPCR #### [facility] ([id number]) [address] [place], [place] [address]JTGTJPFTVQwo 87-49-8796Bxselyvnj [Mass/Vol]4.0 mg/dLNormal 2.4-4.9[facility] HospitalComment on above:Performed By: #### 98930-0, 2777-1, BMP, CBC, UPCR #### [facility] ([id number]) [address], [address] [place], [place] [address]WZIMVTT CREAT RATIOon 75-69-6548SGQYVO URINE KKYLZQW91 mg/L Normal<120Pro[facility] – MarshallComment on above:Performed By: #### 70307-6, 2777-, BMP, CBC, UPCR #### [facility] ([id number]) [address], [address] [place], [place] [address]Q/PRO/SAMPLE WORKER RATIO CALC0.04Normal<0.2PTuscarawas Hospital Comment on above:Result Comment: Nephrotic Syndrome is associated with ratios >3.5Performed By: #### 56988-5, 2777-, BMP, CBC, UPCR #### [facility] ([id number]) [address], [address] [place], [place] [address]HZFUI CREATININE,ZGW628.27 mg/dLNoalProMedica Bay Park Hospital Comment on above:Performed By: #### 96823-8, 2777-1, BMP, CBC, UPCR #### [facility] ([id number]) [address], [address] [place], [place] [address]Cvalsgfitx.intact [Mass/Vol]on 58-09-0508REV YAOKXS98 pg/mL Gidpga74-49YolHsidzpChristus Good Shepherd Medical Center – MarshallComment on above:Performed By: #### 24014- 9, 2777-1, BMP, CBC, UPCR #### [facility] ([id number]) [address], [address] [place], [place] [address]Hyzramedto 3 Ab Qn (S)on 19-39-3612Xklnjdzgfv 3 IgG Ab<0.2Normal <1.0ProChrist[facility] Shepherd [facility] Center – MarshallComment on above:Performed By: #### 24779-6, 2777- 1, BMP, CBC, UPCR #### [facility] ([id number]) [address], [address] [place], [place] [address]EQHQF IMMUNOFIXATIONon 19-27-9458VjX [Mass/Vol]155 mg/dLNormal 68-378ProMedica Bay Park HospitalComment on above:Performed By: #### CBC, 13407- 9, 79762-4, 2731-8, 49809-9, 67721-3, 13311-9, BMP, 5196-1, 90266-6, 5193-8, 6969-0, UPCR, SIFE, 51492-5, 6968-2, 2777-1 #### [facility] ([id number]) [address], [address] [place] [address] #### 20814-3 #### [facility] ([id number]) [address] [place] [address] 15772TeK [Mass/Vol]974 mg/yMRclums739-5136UdkNlbbzh[address] [place] [address] Comment on above:Performed By: #### CBC, 45103-4, 19607-0, 2731-8, 50424-9, 40276-6, 13654-9, BMP, 5196-1, 50359-6, 5193-8, 6969-0, UPCR, SIFE, 81473-1, 6968-2, 2777-1 #### [facility] ([id number]) [address], [address] [place] [address] #### 88033-7 #### [facility] ([id number]) [address] [place] [address]EkV [Mass/Vol]62 mg/jGJkjohs88-543OwxXjmwkpProMedica Bay Park Hospital Comment on above:Performed By: #### CBC, 09873-0, 52046-4, 2731-8, 88428-3, 46565-9, 29756-3, BMP, 5196-1, 92533-6, 5193-8, 6969-0, UPCR, SIFE, 74327-5, 6968-2, 2777-1 #### [facility] ([id number]) [address], [address] [place] [address] #### 24968-1 #### [facility] ([id number]) [address] [place] [address]JTLFAX PROFILE INTERPUnremarkable pattern and quantitation, no monoclonal bands.NormalProMedica Casa Colina Hospital For Rehab MedicineComment on above:Performed By: #### CBC, 09977-8, 23653-1, 2731-8, 41028-0, 31952-1, 19101-8, BMP, 5196-1, 40761-9, 5193-8, 6969-0, UPCR, SIFE, 54621-7, 6968-2, 277-1 #### [facility] ([id number]) [address], [address] [place] [address] #### 60906-2 #### [facility] ([id number]) [address] [place] [address]BUAHMZVVZKez 67-54-8472Wielqdnle Ql (U)NegativeNormalNEG [facility] For [facility] MedicineComment on above:Performed By: #### 80455-5, 2777-1, BMP, CBC, UPCR #### [facility] ([id number]) [address], [address] [place], [place] [address]IIYPO/HGBNegativeNormalNEGProAshtabula County Medical Centerca [facility] For Rehab MedicineComment on above:Performed By: #### 46856-7, 2777-1, BMP, CBC, UPCR #### [facility] ([id number]) [address], [address] [place], [place] [address]Iegli (U)ORANGEAbnormalYELLOWProMedica Clarksville HospitalComment on above:Performed By: #### 80811-1, 2777-1, BMP, CBC, UPCR #### [facility] ([id number]) [address], [address] [place], [place] [address]Yygfuhx Ql (U)NegativeNormalNEGProChristus Good Shepherd Medical Center – MarshallComment on above:Performed By: #### 48564-5, 277-, BMP, CBC, UPCR #### [facility] ([id number]) [address], [address] [place], [place] [address]Mvmvyxq Ql (U)NegativeNormalNEGProChristus Good Shepherd Medical Center – MarshallComment on above:Performed By: #### Elena, 277-, BMP, CBC, UPCR #### [facility] ([id number]) [address], [address] [place], [place] [address]Mqvsybhrx esterase Test strip Ql (U)NegativeNoalNEGProMedica Bay Park HospitalComselect specialty hospital on above:Performed By: #### 89023-5, 277-, BMP, CBC, UPCR #### [facility] ([id number]) [address], [address] [place], [place] [address]KLTSYRHVZEKLTMtqlzrilXEXQIscWrjzjr Fremont HospitalComment on above:Performed By: #### 73912-8, 277-, BMP, CBC, UPCR #### [facility] ([id number]) [address], [address] [place], [place] [address]Ggazaoj Ql (U)NegativeNormalNEGProChristus Good Shepherd Medical Center – MarshallComment on above:Performed By: #### 96095-4, 277-1, BMP, CBC, UPCR #### [facility] ([id number]) [address], [address] [place], [place] [address]fK (U)5.5 [pH]Normal5.0-8.5PTuscarawas HospitalComment on above:Performed By: #### 12322-2, 2776-1, BMP, CBC, UPCR #### [facility] ([id number]) [address], [address] [place], [place] [address]Jwkltmk Ql (U)NegativeNormalNEGProChristus Good Shepherd Medical Center – MarshallComment on above:Performed By: #### 44634-7, 2776-, BMP, CBC, UPCR #### [facility] ([id number]) [address], [address] [address]H.B.CELLS2 /hpfNormal0-5PTuscarawas HospitalComment on above:Performed By: #### 48377-0, 2776-09, BMP, CBC, UPCR #### [facility] ([id number]) [address], [address] [address]Kgrjbtdk gravity (U) [Rel density]1.907Efpjnq9.003-1.035 [facility] For Rehab MedicineComment on above:Performed By: #### 64037-9, 2776-09, BMP, CBC, UPCR #### [facility] ([id number]) [address], [address] [address]HAWOZSAR EPITHELIUM6 /hpfHigh0-5PTuscarawas Hospital Comment on above:Performed By: #### 57853-1, 2776-09, BMP, CBC, UPCR #### [facility] ([id number]) [address], [address] [address]DNACGWFPRLBRXLSQtfrihyvMPPAMSqlRxqunr [facility]ont HospitalComment on above:Performed By: #### 87858-7, 2776-, BMP, CBC, UPCR #### [facility] ([id number]) [address], [address] [address]Zknxgbjitnpg (U) [Mass/Vol]mg/dLNormal<1.1PTuscarawas HospitalComment on above:Performed By: #### 67025-6, 2776-, BMP, CBC, UPCR #### [facility] ([id number]) [address], [address] [place], [place] [address]X.B.CELLS1 /hpfNormal0-5ProMed[facility] For Rehab MedicineComment on above:Performed By: #### 27955-8, 2777-, BMP, CBC, UPCR #### [facility] ([id number]) [address], [address] [place], [place] [address]Fkavjnt D+Metabolites [Mass/Vol]on 03-58-1690COPPSWY D 25 HYD TOT18.5 ng/yHLya41-355CykXmjlvc [facility] For Rehab MedicineComment on above:Result Comment: Vitamin D status 25 [place] Vitamin D Deficiency <20 ng/mL Insufficiency 20-29 ng/mL Sufficiency 30-100 ng/mL Toxicity >100 ng/mL NOTE: A pediatric reference range has not been established by the steam plant operator of this kit. The [place] [employer] recommends a Vitamin D level of = or >20ng/mL in infants and children.Performed By: #### 92907-2, 27703-28, BMP, CBC, UPCR #### [facility] ([id number]) [address], [address] [address]RF RETROPERITONEAL COMPLETEon 71-21-4262DK RETROPERITONEAL COMPLETEUS RETROPERITONEAL COMPLETE HISTORY: A 28-year-old [...] by Misael Knox MD on 07/19/2024 5:08 PMNormalProChristus Good Shepherd Medical Center – MarshallBASI METABOLIC PANLon 96-65-5464Valhv gap [Moles/Vol]9 mmol/LNormal5-15 [facility] Hospitaledica [facility] For Rehab MedicineComment on above:Performed By: #### 89305-6, 2777-1, BMP, CBC, UPCR #### [facility] ([id number]) [address], [address] [place], [place] [address]Jljxexs [Mass/Vol]9.2 mg/dLNormal8.5-10.5POur Lady of the Lake Ascensionica [facility] For Rehab MedicineComment on above:Performed By: #### 14417-3, 2777-1, BMP, CBC, UPCR #### [facility] ([id number]) [address], [address] [place], [place] [address]Ndgpjazz [Moles/Vol]107 mmol/FZpcphy42-982EooLyevaqProMedica Bay Park HospitalComment on above:Performed By: #### 15802-6, 2777-1, BMP, CBC, UPCR #### [facility] ([id number]) [address], [address] [place], [place] [address]VL2 [Moles/Vol]26 mmol/TMgethe73-54QckXjudbzTuscarawas Hospital Comment on above:Performed By: #### 48198-3, 2777-, BMP, CBC, UPCR #### [facility] ([id number]) [address], [address] [place], [place] [address]Zzngqvrpff [Mass/Vol]0.83 mg/dLNormal0.40-1.00ProMedica Bay Park HospitalComment on above:Result Comment: METHOD TRACEABLE TO IDMS STANDARD Performed By: #### 26959-6, 2777-, BMP, CBC, UPCR #### [facility] ([id number]) [address], [address] [place], [place] [address]tPLO (CKD-EPI) NON-RACE DEPENDENT>90Normal>59ProChrist[facility] Shepherd Medical Center – MarshallComment on above:Result Comment: Reported eGFR is based on the CKD-EPI 2020 equation that does not use a race coefficient.Performed By: #### 42101-7, 2777-, BMP, CBC, UPCR #### [facility] ([id number]) [address], [address] [place], [place] [address]Loivvxb [Mass/Vol]97 mg/yWBxjpfy56-82IqjVwdrbmProMedica Bay Park Hospital Comment on above:Performed By: #### 27474-2, 2777-, BMP, CBC, UPCR #### [facility] ([id number]) [address], [address] [place], [place] [address]Nzsxlwqzm [Moles/Vol]4.2 mmol/LNormal3.5-5.0ProMedica Bay Park HospitalComment on above:Performed By: #### 88020-8, 2777-, BMP, CBC, UPCR #### [facility] ([id number]) [address], [address] [place] [address]Gotnxj [Moles/Vol]142 mmol/MLslucg405-223SkgGdvggcProMedica Bay Park HospitalComment on above:Performed By: #### 79858-0, 2776-09, BMP, CBC, UPCR #### [facility] ([id number]) [address], [address] [place], [place] [address]Vikn nitrogen [Mass/Vol]18 mg/dLNormal5-23ProChrist[facility] – MarshallComment on above:Performed By: #### 14947-7, 2776-09, BMP, CBC, UPCR #### [facility] ([id number]) [address], [address] [place], [place] [address]BKAWPVMF BLOOD COUNTon 31-67-2430Zytlzuolchr distribution width (RBC) [Ratio]12.9 %Piwpmq08.5-15.0ProMedica Bay Park HospitalComment on above: Performed By: #### 98690-1, 2776-09, BMP, CBC, UPCR #### [facility] ([id number]) [address], [address] [place], [place] [address]Vfitpesdyu (Bld) [Volume fraction]42.6 %Uwqnwv82-55KxjTqvnutChristus Good Shepherd Medical Center – MarshallComment on above:Performed By: #### 09830-7, 2776-09, BMP, CBC, UPCR #### [facility] ([id number]) [address], [facility] [address] [place], [place] [address]Xagylxhcrf (Bld) [Mass/Vol]14.4 g/mUFlnwtt42.7-15.5PTuscarawas HospitalComment on above:Performed By: #### 51981-3, 2776-09, BMP, CBC, UPCR #### [facility] ([id number]) [address], [address] [place], [place] [address]DTV (RBC) [Entitic mass]32.3 dxCyvfkc30-41WxaYydrttChristus Good Shepherd Medical Center – MarshallComment on above:Performed By: #### 60603-9, 277-, BMP, CBC, UPCR #### [facility] ([id number]) [address], [address] [place] [address]IVTN (RBC) [Mass/Vol]33.8 g/hHCnpyzf71-04QddFqcwurChristus Good Shepherd Medical Center – MarshallComment on above:Performed By: #### 59977-1, 277-, BMP, CBC, UPCR #### [facility] ([id number]) [address], [address] [place], [place] [address]RJK (RBC) [Entitic vol]96 cCVmxkpm03-128RynZwzksn [facility] HospitalComment on above:Performed By: #### 38492-1, 2776-, BMP, CBC, UPCR #### [facility] ([id number]) [address], [address] [place], [place] [address]Phjcmluq mean volume (Bld) [Entitic vol]9.0 fLNormal7-12 [facility] For Re[facility] MedicineComment on above:Performed By: #### 31207-3, 277-, BMP, CBC, UPCR #### [facility] ([id number]) [address], [address] [place], [place] [address]Jvuavmodz (Bld) [#/Vol]269 10*3/tZMsmyaq856-930WxsAtsmbz [facility] HospitalComment on above:Performed By: #### 04445-6, 277-, BMP, CBC, UPCR #### [facility] ([id number]) [address], [address] [place] [address]FWA COUNT4.45 X10E12/LNormal3.80-5.20[facility] Comment on above:Performed By: #### 12583-3, 277-, BMP, CBC, UPCR #### [facility] ([id number]) [address], [address] [place], [place] [address]JHA (Bld) [#/Vol]5.1 10*3/uLNormal4.0-11.0ProMedica [facility] Park HospitalComment on above:Performed By: #### 20588-6, 2777-1, BMP, CBC, UPCR #### [facility] ([id number]) [address], [address] [place] [address]VLRJLEQVQvd 96-98-6147Arsdgxvsc [Mass/Vol]1.8 mg/dLNormal1.8-2.6 ProMLittle Company of Mary HospitalComment on above:Performed By: #### 25057-7, 277-1, BMP, CBC, UPCR #### [facility] ([id number]) [address], [address] [place], [place] [address]CZFEFVQNZWrd 66-00-1845Pxdpvqsll [Mass/Vol]3.7 mg/dLNormal 2.4-4.9ProMedica [facility] Park HospitalComment on above:Performed By: #### 05726-0, 277-, BMP, CBC, UPCR #### [facility] ([id number]) [address], [address] [place], [place] [address]LKWSEVX CREAT RATIOon 76-37-1975CUTVRK URINE NWPDFAZ732 mg/LHigh <120ProMedica Bay Park HospitalComment on above:Performed By: #### 45314-5, 2777- , BMP, CBC, UPCR #### [facility] ([id number]) [address], [address] [place], [place] [address]Y/PRO/SAMPLE WORKER RATIO CALC0.09Normal<0.2PTuscarawas Hospital Comment on above:Result Comment: Nephrotic Syndrome is associated with ratios >3.5Performed By: #### 23673-3, 2777-1, BMP, CBC, UPCR #### [facility] ([id number]) [address], [address] [place], [place] [address]BCCMF CREATININE,LPC288.44 mg/dLSoutheast Missouri HospitalalProMedica Bay Park Hospital Comment on above:Performed By: #### 98851-3, 2777-1, BMP, CBC, UPCR #### [facility] ([id number]) [address], [address] [place], [place] [address]NIEEXUBASYhi 10-78-5485Iouyasyvw Ql (U)NegativeNormalNEG [facility] For [facility] MedicineComment on above:Performed By: #### UA #### [facility] ([id number]) [address] [place], [place] [address]WDEPF/HGBNegativeNormalNEGProChristus Good Shepherd Medical Center – MarshallComment on above:Performed By: #### UA #### [facility] ([id number]) [address] [place], [place] [address]Rmids (U)YELLOWNormalYELLOWProChristus Good Shepherd Medical Center – MarshallComment on above:Performed By: #### UA #### [facility] ([id number]) [address] [place], [place] [address]Siuzmgc Ql (U)NegativeNormalNEGProChristus Good Shepherd Medical Center – MarshallComment on above:Performed By: #### UA #### [facility] ([id number]) [address] [place], [place] [address]Xyzbvug Ql (U)NegativeNormalNEGProChristus Good Shepherd Medical Center – MarshallComselect specialty hospital on above:Performed By: #### UA #### [facility] ([id number]) [address], [address] [place], [place] [address]Jcjokqyai esterase Test strip Ql (U)NegativeNormalNEGProChristus Good Shepherd Medical Center – MarshallComselect specialty hospital on above:Performed By: #### UA #### [facility] ([id number]) [address], [address] [place], [place] [address]TVDKRUCSYATVVDqfnqjyqOSKKVvhKphrqu [facility] HospitalComselect specialty hospital on above:Performed By: #### UA #### [facility] ([id number]) [address] [place], [place] [address]Lownyhp Ql (U)NegativeNormalNEGProMedica Bay Park HospitalComment on above:Performed By: #### UA #### [facility] ([id number]) [address], [address] [place], [place] [address]nJ (U)5.5 [pH]Normal5.0-8.5PTuscarawas HospitalComment on above:Performed By: #### UA #### [facility] ([id number]) [address], [address] [place], [place] [address]Ckmkxhn Ql (U)TraceAbnormalNEGProMedica Bay Park HospitalComment on above:Performed By: #### UA #### [facility] ([id number]) [address], [address] [place], [place] [address]G.B.CELLS1 /hpfNormal0-5PTuscarawas HospitalComment on above:Performed By: #### UA #### [facility] ([id number]) [address], [address] [place], [place] [address]Feipslkr gravity (U) [Rel density]1.650Zadmyw4.003-1.035 [facility] Park HospitalComment on above:Performed By: #### UA #### [facility] ([id number]) [address], [address] [place], [place] [address]OEUIASFO GPHULKUGSG70 /hpfHigh0-5PTuscarawas Hospital Comment on above:Performed By: #### UA #### [facility] ([id number]) [address], [address] [place], [place] [address]ZHYIILYXXJZXQYYfwfigTJOIJNwcUwqart [facility]ont HospitalComment on above:Performed By: #### UA #### [facility] ([id number]) [address], [address] [place], [place] [address]Lzyqswhscpco (U) [Mass/Vol]mg/dLNormal<1.1Pro[facility] HospitalComment on above:Performed By: #### UA #### [facility] ([id number]) [address], [address] [place], [place] [address]J.B.CELLS2 /hpfNormal0-5Pro[facility] HospitalComment on above:Performed By: #### UA #### [facility] ([id number]) [address] [place], [place] [address]HCA,APTIMA HPV,AGE GDLNon 32-23-6063SLH GDLN ACOG TESTINGNote. [facility] HealthcareComment on above:TESTS RESULT FLAG UNITS REF RANGE LAB Clinician Provided Cytology Information Source.............Cervix;Endocervix No. of containers..01 ThinPrep Vial Age Algo ACOG Ligia... -26 10 FLAG LEGEND: L-Low Normal,H-High Normal,LL-Alert Low,HH-Alert High <-Panic Low,>-Panic High,A-Abnormal,AA-Critical Abnormal Performed at: 01 [facility] [address] Gillian Guillaume MD, IGP, RFX APTIMA HPV ASCUNote.NOMS HealthcareComment on above:TESTS RESULT FLAG UNITS REF RANGE LAB DIAGNOSIS: 02 NEGATIVE FOR INTRAEPITHELIAL LESION OR MALIGNANCY. Specimen adequacy: 02 Satisfactory for evaluation. Endocervical and/or squamous metaplastic cells (endocervical component) are present. Performed by: 02 Matt Martínez, Knitting Tester ([facility] . 02 Note: Note 02 The Pap [...] Low,>-Panic High,A-Abnormal,AA-Critical Abnormal Performed at: [address] [facility] [address] [place] [address] Gillian Guillaume MD, Performed at: = - [facility] [address], [place] [id number] Cylinder Dyer: Gillian Guillaume MD, Phone: [phone] Performed at: [facility] [address] [id number] Cylinder Dyer: Gillian Guillaume MD, Phone: [phone] BRUSH-SPATULA CERVIX ENDOCERVIX CLINISYNCNORI HealthcareALL BUNon 61-72-0789Kars nitrogen [Mass/Vol]6.0 mg/dLLow 7.0 - 18.0 mg/dLJORDAN VALLEY [facility] HealthcareALL CBC WITH AUTO DIFFon 08-11-9772EKKTSEJSM ABSOLUTE AUTO0.0NORI HealthcareBasophils/100 WBC (Bld)0.0 %Low0.2 - 2.0 %[facility] HealthcareEosinophils/100 WBC (Bld)1.6 %0.9 - 7.0 %[facility] HealthcareErythrocyte distribution width (RBC) [Ratio]12.7 %11.0 - 15.0 %[facility] HealthcareHematocrit (Bld) [Volume fraction]38.6 %36.0 - 48.0 %[facility] HealthcareHemoglobin (Bld) [Mass/Vol]13.2 g/dL12.0 - 16.0 g/dLCitizens Memorial HealthcareIMMATURE GRANULOCYTES ABS AUTO 0.05HighNOMercy Hospital St. John'sImmature granulocytes/100 WBC (Bld)0.6 %High0.0 - 0.5 % [facility] HealthcareInterpretation and review of laboratory resultsAbnormalCitizens Memorial HealthcareLYMPHOCYTES ABSOLUTE AUTO0.9LowNOMS [facility] NorthLymphocytes/100 WBC (Bld)9.8 %Low20.5 - 60.0 %[facility] SystemH (RBC) [Entitic mass]33.1 pg26.7 - 34.0 pgFreeman Health SystemHC (RBC) [Mass/Vol]34.2 g/dL29.9 - 35.2 g/dLFreeman Health SystemV (RBC) [Entitic vol]96.7 fL81.0 - 99.0 fLCitizens Memorial HealthcareMONOCYTES ABSOLUTE AUTO0.4NOMS [facility] NorthMonocytes/100 WBC (Bld)4.2 %1.7 - 12.0 %[facility] HealthcareNEUTROPHILS ABSOLUTE AUTO7.3HighNOMercy Hospital St. John'sNeutrophils/100 WBC (Bld)83.8 %High43.0 - 75.0 %[facility] HealthcarePlatelet mean volume (Bld) [Entitic vol]11.0 fL9.5 - 13.5 fLCitizens Memorial HealthcareTB EO #0.1NOMS [facility] Hospital NorthTB KAY454QLHBFreeman Neosho Hospital RBC3.99LowNOMercy Hospital St. John'sTB WBC8.7NORI HealthcareCLINISYNMEDICAL CENTER OF WESTERN MASSACHUS[facility]TS HealthcareALL URIC ACIDon 30-97-5647Vxzbq [Mass/Vol]3.8 mg/dL2.6 - 6.0 mg/dLCitizens Memorial HealthcareCCF Joie 73-21-5652JQD [Catalytic activity/Vol]25 U/L14 - 59 U/LNScotland County Memorial Hospital APTTon 67-87-7981fKAX Coag (Bld) [Time]25.2 [facility] Isaias 58-82-4287EHJ [Catalytic activity/Vol]22 U/L15 - 37 U/LNWestern Missouri Mental Health CenterMHPT FIBRINOGENon 62-82-7140WFWKIDAOEN005 mg/vIAhkm063 - 400 mg/dLJORDAN [facility] Healthcare Interpretation and review of laboratory resultsAbHawthorn CenterNo Panel Informationon 54-31-1338GCMMSRCIZYFMR HealthcareInterpretation and review of laboratory resultsAbAdventHealth HendersonvilleMCOH PROTHROMBIN TIME INR W/O COUMon 65-07-9731TZ Coag (PPP) [Time]9.9 [facility] INR0.93[facility] HealthcareComment on above:DESIRED INR: 2.0-3.0 CONDITIONS NOT LISTED BELOW 2.5-3.5 FOR PROSTHETIC HEART VALVE REPLACEMENT 2.5-3.5 RECURRENT THROMBOSIS TB CREATININEon 27-75-4244Wlxgnolkdi [Mass/Vol]0.51 mg/dLLow0.55 - 1.02 mg/dL NOMS HealthcareGFR/1.73 sq M.predicted CKD-EPI (S/P/Bld) [Vol rate/Area]>6060 - PINFCitizens Memorial HealthcareTB EGFR-NON AF INDIAN>6060 - PINGolden [facility] DRUG SCREEN RAPID (URINE)on 56-68-1753UHOIWQFYYOE SCREEN URINENegativeNEGATIVENOMS HealthcareBARBITURATES SCREEN URINENegativeNEGATIVENOMS Healthcare BENZODIAZEPINES [...] URINENegativeNEGATIVENOMS HealthcareTBH URINE T PROTEIN CREAT RATIOon 60-25-4061MFUESAKWMX URINE VRDVNA564.07 mg/dL20.00 - 300.00 mg/dL N[facility] HealthcareInterpretation and review of laboratory resultsAbnormalNOMS HealthcareProtein (U) [Mass/Vol]22.3 mg/dLHighNINF - 11.9 mg/dLNOMS Healthcare PROTEIN CREATININE RATIO URINE0.20NOMS HealthcareCLINISYNCNOMS HealthcareUS OB BPP W NON-STRESSon 76-91-0447[place]fm[place] [address] Ultrasound Report Signed Patient: AALIYAH CARVALHO MR#: [id number] : 1995 Acct:[id number] Age/Sex: 28 / F ADM Date: 03/30/24 Loc: [facility] 250-[address]: Juan C Stinson D.O. Ordering Physician: Juan C Stinson D.O. Date of Service: 03/30/24 Procedure(s): US OB BPP w non-stress Accession Number(s): [id number] cc: Juan C Stinson D.O.; Jay Sadler M.D. [address] [address] Patient Name: AALIYAH CARVALHO MRN: [id number] date: 1995 Sex: F Assigned Patient Location: [facility] Current Patient Location: [facility] Accession/Order Number: [id number] Exam Date: 03/30/2024 08:03 Report Date: 03/30/2024 [...] M.D. Signed By: 03/30/24915 DD/ 2 TD/TT: Cement Crusher Operator:TBHRadiology, Radiologist, MD - 03/30/2024 [place] [address] Ultrasound Report Signed Patient: AALIYAH CARVALHO MR#: [id number] : 1995 Acct:[id number] Age/Sex: 28 / F ADM Date: 03/30/24 Loc: [facility] 250-[address]: Juan C Stinson D.O. Ordering Physician: Juan C Stinson D.O. Date of Service: 03/30/24 Procedure(s): US OB BPP w non-stress Accession Number(s): [id number] cc: Juan C Stinson D.O.; Jay Sadler M.D. The [address] [address] Patient Name: AALIYAH CARVALHO MRN: [id number] date: 1995 Sex: F Assigned Patient Location: [facility] Current Patient Location: [facility] Accession/Order Number: [id number] Exam Date: 03/30/2024 08:03 Report Date: 03/30/2024 [...] M.D. Signed By: 03/30/24915 DD/ 2 TD/TT: Cement Crusher Operator: JOSE HealthcareRadiology Study observation (narrative)NOMS HealthcareUS OB BPP W NON-STRESSOrdered By: Radiologist Radiology on [id number] Work Phone: US OB GROWTHon [phone] [address] Ultrasound Report Signed Patient: AALIYAH CARVALHO MR#: [id number] : 1995 Acct:[id number] Age/Sex: 28 / F ADM Date: 03/30/24 Loc: [facility] 250-[address]: Juan C Stinson D.O. Ordering Physician: Juan C Stinson D.O. Date of Service: 03/30/24 Procedure(s): US OB growth Accession Number(s): [id number] cc: Juan C Stinson D.O.; Jay Sadler M.D. [address] [address] Patient Name: AALIYAH CARVALHO MRN: [id number] date: 1995 Sex: F Assigned Patient Location: [facility] Current Patient Location: [facility] Accession/Order Number: [id number] Exam Date: 03/30/2024 08:03 Report Date: 03/30/2024 [...] M.D. Signed By: 03/30/24919 DD/ 6 TD/TT: Cement Crusher Operator:TBHRadiology, Radiologist, MD - 03/30/2024 [place] [address] Ultrasound Report Signed Patient: AALIYAH CARVALHO MR#: [id number] : 1995 Acct:[id number] Age/Sex: 28 / F ADM Date: 03/30/24 Loc: [facility] 250-[address]: Juan C Stinson D.O. Ordering Physician: Juan C Stinson D.O. Date of Service: 03/30/24 Procedure(s): US OB growth Accession Number(s): [id number] cc: Juan C Stinson D.O.; Jay Sadler M.D. [place] [address] Patient Name: AALIYAH CRAVALHO MRN: [id number] date: 1995 Sex: F Assigned Patient Location: [facility] Current Patient Location: [facility] Accession/Order Number: [id number] Exam Date: 03/30/2024 08:03 Report Date: 03/30/2024 [...] M.D. Signed By: 03/30/24919 DD/ 6 TD/TT: Cement Crusher Operator: NOMS HealthcareRadiology Study observation (narrative)NOMS HealthcareUS OB GROWTHOrdered By: Radiologist Radiology on 08-57-8280FNDY Healthcare Work Phone: US OB BPP W NON-STRESSon 36-85-6515[place] [address] Ultrasound Report Signed Patient: AALIYAH CARVALHO MR#: [id number] : 1995 Acct:[id number] Age/Sex: 28 / F ADM Date: 03/23/24 Loc: US Attending Dr: Juan C Stinson D.O. Ordering Physician: Juan C Stinson D.O. Date of Service: 03/23/24 Procedure(s): US OB BPP w non-stress Accession Number(s): [id number] cc: Juan C Stinson D.O.; Jay Sadler M.D. [place] [phone] Patient Name: AALIYAH CARVALHO MRN: [id number] date: 1995 Sex: F Assigned Patient Location: [facility] Current Patient Location: Accession/Order Number: [id number] Exam Date: 03/23/2024 07:57 Report Date: 03/23/2024 [...] Womack M.D. Signed By: 03/23/24900 DD/ TD/TT: Cement Crusher Operator:TBHRadiologSushma merida MD - 03/23/2024 [place] [address] Ultrasound Report Signed Patient: AALIYAH CARVALHO MR#: [id number] : 1995 Acct:[id number] Age/Sex: 28 / F ADM Date: 03/23/24 Loc: US Attending Dr: Juan C Stinson D.O. Ordering Physician: Juan C Stinson D.O. Date of Service: 03/23/24 Procedure(s): US OB BPP w non-stress Accession Number(s): [id number] cc: Juan C Stinson D.O.; Jay Sadler M.D. The [place] [phone] Patient Name: AALIYAH CARVALHO MRN: [id number] date: 1995 Sex: F Assigned Patient Location: [facility] Current Patient Location: Accession/Order Number: [id number] Exam Date: 03/23/2024 07:57 Report Date: 03/23/2024 [...] M.D. Signed By: 03/23/24900 DD/ 0858 TD/TT: Cement Crusher Operator: JOSE HealthcareRadiology Study observation (narrative)NOMS HealthcareUS OB BPP W NON-STRESSOrdered By: Radiologist Radiology on 01-19-6024KZAM [employer] Work Phone: us OB BPP W NON-STRESSon 54-07-2683[place] [phone] Ultrasound Report Signed Patient: AALIYAH CARVALHO MR#: [id number] : 1995 Acct:[id number] Age/Sex: 28 / F ADM Date: 03/16/24 Loc: US Attending Dr: Juan C Stinson D.O. Ordering Physician: Juan C Stinson D.O. Date of Service: 03/16/24 Procedure(s): US OB BPP w non-stress Accession Number(s): [id number] cc: Juan C Stinson D.O.; Jay Sadler M.D. [address] [address] Patient Name: AALIYAH CARVALHO MRN: [id number] date: 1995 Sex: F Assigned Patient Location: [facility] Current Patient Location: Accession/Order Number: [id number] Exam Date: 03/16/2024 07:51 Report Date: 03/16/2024 [...] M.D. Signed By: 03/16/24910 DD/ 7 TD/TT: Cement Crusher Operator:ROBYNHRadiologmagnolia, Radiologist, MD - 03/16/2024 [place] [address] Ultrasound Report Signed Patient: AALIYAH CARVALHO MR#: [id number] : 1995 Acct:[id number] Age/Sex: 28 / F ADM Date: 03/16/24 Loc: US Attending Dr: Juan C Stinson D.O. Ordering Physician: Juan C Stinson D.O. Date of Service: 03/16/24 Procedure(s): US OB BPP w non-stress Accession Number(s): [id number] cc: Juan C Stinson D.O.; Jay Sadler M.D. The [place] [address] Patient Name: AALIYAH CARVALHO MRN: [id number] date: 1995 Sex: F Assigned Patient Location: [facility] Current Patient Location: Accession/Order Number: [id number] Exam Date: 03/16/2024 07:51 Report Date: 03/16/2024 [...] M.D. Signed By: 03/16/24910 DD/ 7 TD/TT: Cement Crusher Operator: JOSE HealthcareRadiology Study observation (narrative)JOSE HealthcareUS OB BPP W NON-STRESSOrdered By: Radiologist Radiology on 34-72-6201XLMY Healthcare Work Phone: US OB GROWTHon [phone] [address] Ultrasound Report Signed Patient: AALIYAH CARVALHO MR#: [id number] : 1995 Acct:[id number] Age/Sex: 28 / F ADM Date: 03/01/24 Loc: NOMS Attending Dr: Juan C Stinson D.O. Ordering Physician: Juan C Stinson D.O. Date of Service: 03/01/24 Procedure(s): US OB growth Accession Number(s): [id number] cc: Juan C Stinson D.O.; Jay Sadler M.D. [place] [address] Patient Name: AALIYAH CARVALHO MRN: [id number] date: 1995 Sex: F Assigned Patient Location: [facility] Current Patient Location: [facility] Accession/Order Number: [id number] Exam Date: 03/01/2024 09:51 Report Date: 03/01/2024 [...] was notified of these findings by the rn ante partum at time of imaging. Electronically authenticated by: CHELSEA DELCID Date: 03/01/2024 12:43 Dictated By: Chelsea Delcid M.D. Signed By: 03/01/24 1245 DD/ 1243 TD/TT: Cement Crusher Operator:TBHRadiology, Radiologist, - 03/01/2024 [place] [address] Ultrasound Report Signed Patient: AALIYAH CARVALHO MR#: [id number] : 1995 Acct:[id number] Age/Sex: 28 / F ADM Date: 03/01/24 Loc: NOMS Attending Dr: Juan C Stinson D.O. Ordering Physician: Juan C Stinson D.O. Date of Service: 03/01/24 Procedure(s): US OB growth Accession Number(s): [id number] cc: Juan C Stinson D.O.; Jay Sadler M.D. The [place] [address] Patient Name: AALIYAH CARVALHO MRN: [id number] date: 1995 Sex: F Assigned Patient Location: [facility] Current Patient Location: [facility] Accession/Order Number: [id number] Exam Date: 03/01/2024 09:51 Report Date: 03/01/2024 [...] was notified of these findings by the rn ante partum at time of imaging. Electronically authenticated by: CHELSEA DELCID Date: 03/01/2024 12:43 Dictated By: Chelsea Delcid M.D. Signed By: 03/01/24 1240 DD/ 1243 TD/TT: Cement Crusher Operator: JOSE HealthcareRadiology Study observation (narrative)NOM HealthcareUS OB GROWTHOrdered By: Radiologist Radiology on 81-62-3154LPUWCitizens Memorial Healthcare Work Phone: no Panel InformationOrdered By: Radiologist Radiology on 55-96-0950HXUSCitizens Memorial Healthcare Work Phone: no Panel Informationon 33-14-2108Sjuwebazl Study observation (narrative)NOM HealthcareUS OB ANATOMYon 57-58-6916[place] [address] Ultrasound Report Signed Patient: AALIYAH CARVALHO MR#: [id number] : 1995 Acct:[id number] Age/Sex: 28 / F ADM Date: 12/16/23 Loc: NOMS Attending Dr: Juan C Stinson D.O. Ordering Physician: Juan C Stinson D.O. Date of Service: 12/16/23 Procedure(s): US OB anatomy Accession Number(s): [id number] cc: Juan C Stinson D.O.; Jay Sadler M.D. The [place] [phone] Patient Name: AALIYAH CARVALHO MRN: [facility]:[id number] date: 1995 Sex: F Assigned Patient Location: [facility] Current Patient Location: Accession/Order Number: [id number] Exam Date: 12/16/2023 14:39 Report Date: 12/17/2023 [...] M.D. Signed By: 12/17/2327 DD/ 3 TD/TT: Cement Crusher Operator:TBHRadiology, Radiologist, - 12/17/[address] [address] Ultrasound Report Signed Patient: AALIYAH CARVALHO MR#: [id number] : 1995 Acct:[id number] Age/Sex: 28 / F ADM Date: 12/16/23 Loc: NOMS Attending Dr: Juan C Stinson D.O. Ordering Physician: Juan C Stinson D.O. Date of Service: 12/16/23 Procedure(s): US OB anatomy Accession Number(s): [id number] cc: Juan C Stinson D.O.; Jay Sadler M.D. The [address] [address] Patient Name: AALIYAH CARVALHO MRN: [id number] date: 1995 Sex: F Assigned Patient Location: [facility] Current Patient Location: Accession/Order Number: [id number] Exam Date: 12/16/2023 14:39 Report Date: 12/17/2023 [...] M.D. Signed By: 12/17/23626 DD/ 3 TD/TT: Cement Crusher Operator: JOSE Chopra OB CERVICAL LENGTHon 18-80-1147SffWhite [place] [address] Ultrasound Report Signed Patient: AALIYAH CARVALHO MR#: [id number] : 1995 Acct:[id number] Age/Sex: 28 / F ADM Date: 12/16/23 Loc: [facility]OM[facility] Attending Dr: Juan C Stinson D.O. Ordering Physician: Juan C Stinson D.O. Date of Service: 12/16/23 Procedure(s): US OB cervical length Accession Number(s): [id number] cc: Juan C Stinson D.O.; Jay Sadler M.D. [place] [address] Patient Name: AALIYAH CARVALHO MRN: [id number] date: 1995 Sex: F Assigned Patient Location: [facility] Current Patient Location: Accession/Order Number: [id number] Exam Date: 12/16/2023 14:39 Report Date: 12/17/2023 [...] M.D. Signed By: 12/17/23626 DD/ 3 TD/TT: Cement Crusher Operator:TBHRadiology, Radiologist, - 12/17/2023 [place] [address] Ultrasound Report Signed Patient: AALIYAH CARVALHO MR#: [id number] : 1995 Acct:[id number] Age/Sex: 28 / F ADM Date: 12/16/23 Loc: NOMS Attending Dr: Juan C Stinson D.O. Ordering Physician: Juan C Stinson D.O. Date of Service: 12/16/23 Procedure(s): US OB cervical length Accession Number(s): [id number] cc: Juan C Stinson D.O.; Jay Sadler M.D. [place] [phone] Patient Name: AALIYAH CARVALHO MRN: [id number] date: 1995 Sex: F Assigned Patient Location: [facility] Current Patient Location: Accession/Order Number: [id number] Exam Date: 12/16/2023 14:39 Report Date: 12/17/2023 [...] M.D. Signed By: 12/17/23626 DD/ 3 TD/TT: Cement Crusher Operator: JOSE Chopra OB TRANSVAGINALojamin 04-54-8829[place] [address] Ultrasound Report Signed Patient: AALIYAH CARVALHO MR#: [id number] : 1995 Acct:[id number] Age/Sex: 28 / F ADM Date: 09/18/23 Loc: US Attending Dr: Juan C Stinson D.O. Ordering Physician: Juan C Stinson D.O. Date of Service: 09/18/23 Procedure(s): US OB transvaginal Accession Number(s): [id number] cc: Juan C Stinson D.O.; Jay Sadler M.D. [place] [phone] Patient Name: AALIYAH CARVALHO MRN: [id number] date: 1995 Sex: F Assigned Patient Location: US Current Patient Location: Accession/Order Number: [id number] Exam Date: 09/18/2023 08:33 Report Date: 09/19/2023 [...] Signed By: 09/19/23 0018 DD/ 0015 TD/TT: Cement Crusher Operator:TBHRadiology, Radiologist, - 09/19/2023 [place] [address] Ultrasound Report Signed Patient: AALIYAH CARVALHO MR#: [id number] : 1995 Acct:[id number] Age/Sex: 28 / F ADM Date: 09/18/23 Loc: US Attending Dr: Juan C Stinson D.O. Ordering Physician: Juan C Stinson D.O. Date of Service: 09/18/23 Procedure(s): US OB transvaginal Accession Number(s): [id number] cc: Juan C Stinson D.O.; Jay Sadler M.D. The [place] [address] Patient Name: AALIYAH CARVALHO MRN: [id number] date: 1995 Sex: F Assigned Patient Location: US Current Patient Location: Accession/Order Number: [id number] Exam Date: 09/18/2023 08:33 Report Date: 09/19/2023 [...] Signed By: 09/19/23 0018 DD/ 001 TD/TT: Cement Crusher Operator: JOSE HealthcareRadiology Study observation (narrative)[facility] HealthcareUS OB TRANSVAGINALOrdered By: Radiologist Radiology on 04-42-6051GJWQ [employer] Work Phone: pap ACOG PANEL 2: 21 to 29on 12-24-2022..NormalThe Memorial Health SystemComment on above:Performed By: #### [id number] #### [facility] [address] [place] [address] Dr. Narendra Thorne Gdln ACOG Zjiwxxk04-24XknyncYvkKettering Health – Soin Medical CenterComment on above:Performed By: #### [id number] #### [facility] [address] [place] [address] Dr. Narendra FranksDIAGNOSIS:CommentMcCullough-Hyde Memorial Hospital on above: Result Comment: NEGATIVE FOR INTRAEPITHELIAL LESION OR MALIGNANCY.Performed By: #### [id number] #### [facility] [address] [place] [address] Dr. Narendra FranksMethodology:CommentNoLakeHealth TriPoint Medical Center on above: Result Comment: This liquid based ThinPrep(R) pap test was screened with the use of an image guided system.Performed By: #### [id number] #### [place] [address] Dr. Narendra FranksNote:CommentMcCullough-Hyde Memorial Hospital on above:Result Comment: The Pap smear is a screening test designed to aid in the detection of premalignant and malignant conditions of the uterine cervix. It is not a diagnostic procedure and should not be used as the sole means of detecting cervical cancer. Both false-positive and false-negative reports do occur. .Performed By: #### [id number] #### [facility] [address] [place] [address] Dr. Narendra FranksPerformed by:CommentMcCullough-Hyde Memorial Hospital on above: Result Comment: Yao Smith Knitting Tester (ASCP)Performed By: #### [id number] #### [facility] [address] [place] [address] Dr. Narendra FranksReflex Criteria:CommentKnox Community HospitalComselect specialty hospital on above:Result Comment: The HPV DNA reflex criteria were not met with this specimen result therefore, no HPV testing was performed. .Performed By: #### [id number] #### [facility] [address] [place] [address] Dr. Narendra FranksSpecimejamin adequacy:CommentMcCullough-Hyde Memorial Hospital on above:Result Comment: Satisfactory for evaluation. Endocervical and/or squamous metaplastic cells (endocervical component) are present.Performed By: #### [id number] #### [facility] [address] [place] [address] Dr. Narendra Mcintyre AUTO DIFFon 96-36-2277OHNB #0.0 103/ulNormal0.0-0.1[facility] ShawComment on above:Performed By: #### CBC #### [facility] [address] [place] [address] Dr. Narendra FranksBasophils/100 WBC (Bld)0.4 %Normal0.2-2.0[facility] Comment on above:Performed By: #### CBC #### [facility] [address] [place] [address] Dr. Narendra Mckeon #0.3 103/ulNormal0.0-0.7The Memorial Health SystemComselect specialty hospital on above: Performed By: #### CBC #### [facility] [address] [place] [address] Dr. Narendra Luisosinophils/100 WBC (Bld)3.5 %Normal0.9-7.0[facility] Comment on above:Performed By: #### CBC #### [facility] [address] [place] [address] Dr. Narendra Luisrythrocyte distribution width (RBC) [Ratio]14.1 %Bekgbl18.0-15.0 [facility], Edwin ShawComment on above:Performed By: #### CBC #### [facility] [address] [place] [address] Dr. Narendra FranksHematocrit (Bld) [Volume fraction]38.2 %Tvokqc24.0-48.0The Memorial Health SystemComment on above:Performed By: #### CBC #### [facility] [address] [place] [address] Dr. Narendra FranksHemoglobin (Bld) [Mass/Vol]12.6 g/lMHifbey73.0-16.0The Memorial Health SystemComment on above:Performed By: #### CBC #### [facility] [address] [place] [address] Dr. Narendra Magana #0.01 10e3/ulNormal0.00-0.03The Memorial Health SystemComment on above:Performed By: #### CBC #### [facility] [address] [place] [address] Dr. Narendra Magana %0.1 %Normal0.0-0.5The Memorial Health SystemComment on above: Performed By: #### CBC #### [facility] [address] [place] [address] Dr. Narendra Hogan #2.4 103/ulNormal1.2-3.8The Memorial Health SystemComment on above:Performed By: #### CBC #### [facility] [address] [place] [address] Dr. Narendra Williamhocytes/100 WBC (Bld)30.4 %Xsoxyf54.5-60.0The Memorial Health SystemComment on above:Performed By: #### CBC #### [facility] [address] [place] [address] Dr. Narendra AguilarUAL DIFF REQNONormalThe Memorial Health SystemComment on above: Performed By: #### CBC #### [facility] [address] [place] [address] Dr. Narendra Bhatia (RBC) [Entitic mass]30.4 iuCpzjee99.7-34.0The Memorial Health SystemComment on above:Performed By: #### CBC #### [facility] [address] [place] [address] Dr. Narendra Keller (RBC) [Mass/Vol]33.0 g/yGSzgqvb34.9-35.2The Memorial Health SystemComment on above:Performed By: #### CBC #### [facility] [address] [place] [address] Dr. Narendra KellerV (RBC) [Entitic vol]92.0 oLXaaget19.0-99.0The Memorial Health SystemComment on above:Performed By: #### CBC #### [facility] [address] [place] [address] Dr. Narendra Rivera #0.5 103/ulNormal0.3-0.8The Memorial Health SystemComment on above:Performed By: #### CBC #### [facility] [address] [place] [address] Dr. Narendra Adamsocytes/100 WBC (Bld)6.3 %Normal1.7-12.0[facility] Comment on above:Performed By: #### CBC #### [facility] [address] [place] [address] Dr. Narendra Kinney #4.7 103/ulNormal1.4-6.5The Memorial Health SystemComment on above:Performed By: #### CBC #### [facility] [address] [place] [address] Dr. Narendra Mcgeeutrophils/100 WBC (Bld)59.3 %Iyeecq20.0-75.0The Memorial Health SystemComment on above:Performed By: #### CBC #### [facility] [address] [place] [address] Dr. Narendra Kirkpatricklet mean volume (Bld) [Entitic vol]10.5 fLNormal9.5-13.5The Memorial Health SystemComment on above:Performed By: #### CBC #### [facility] [address] [place] [address] Dr. Narendra CarlinT272 103/tnSatfrv561-599Cyy Memorial Health SystemComment on above: Performed By: #### CBC #### [facility] [address] [place] [address] Dr. Narendra SalmonC4.15 106/ulCritically low4.20-5.40The Memorial Health SystemComment on above:Performed By: #### CBC #### [facility] [address] [place] [address] [address] Narendra FranksWBC8.0 103/ulNormal4.0-11.0The Memorial Health SystemComment on above: Performed By: #### CBC #### [facility] [address] [place] [address] Dr. Narendra FranksCRPon 04-06-4509XJR [Mass/Vol]mg/LNormal<=1.0The Memorial Health SystemComment on above:Performed By: #### CRP #### [facility] [address] [place] [address] Dr. Narendra FranksCT CSPINE WO CONon 27-95-6446ZF CSPINE WO CONINDICATION: 26 years old; Female. [...] Electronically authenticated by: YESSENIA HICKEY Date: 2022-06-26 21:58NormWilson HealthMONOon 71-41-2030Nqoigygwt (Bld) [#/Vol]NegativeNormalNEGATIVE The Memorial Health SystemComment on above:Performed By: #### MONO, PREG #### [facility] [address] [place] [address] [address] Narendra FranksPREG HCG QUALon 83-26-3194PAZPKDGAX, QUALNegativeNormalNEGATIVE The Memorial Health SystemComment on above:Performed By: #### MONO, PREG #### [facility] [address] [place] [address] [address] Narendra FranksPROF CHEM 8 (BAS METB)on 12-24-0716Wkhqr gap [Moles/Vol]9.8 mmol/LNormalThe [facility] Medical Centerment on above:Performed By: #### BMP #### [facility] [address] [place] [address] [address] Narendra FranksCalcium [Mass/Vol]8.5 mg/dLNormal8.5-10.1[facility] Comment on above:Performed By: #### BMP #### [facility] [address] [place] [address] [address] Narendra FranksChloride [Moles/Vol]104 mmol/YFskvtc07-575DmkSelect Medical Cleveland Clinic [facility] Comment on above:Performed By: #### BMP #### [facility] [address] [place] [address] [address] Narendra FranksCO2 [Moles/Vol]28.0 mmol/FNljhhr60.0-32.0[facility] Comment on above:Performed By: #### BMP #### [facility] [address] [place] [address] Dr. Narendra FranksCreatinine [Mass/Vol]0.77 mg/dLNormal0.55-1.02[facility], [facility] ShawComment on above:Performed By: #### BMP #### [facility] [address] [place] [address] Dr. Narendra LuisGFR-AF INDIAN>60Normal>=60[facility], [facility] ShawComment on above:Performed By: #### BMP #### [facility] [address] [place] [address] Dr. Narendra LuisGFR-NON AF INDIAN>60Normal>=60[facility], Edwin ShawComment on above:Performed By: #### BMP #### [facility] [address] [place] [address] [address] Narendra FranksGlucose [Mass/Vol]90 mg/kJJopoex06-496WqoSelect Medical Cleveland Clinic [facility] Comment on above:Performed By: #### BMP #### [facility] [address] [place] [address] Dr. Narendra FranksPotassium [Moles/Vol]3.8 mmol/LNormal3.5-5.1[facility] Comment on above:Performed By: #### BMP #### [facility] [address] [place] [address] Dr. Narendra FranksSodium [Moles/Vol]138 mmol/CMstcty655-033CfzSelect Medical [facility] Clinic [facility] Comment on above:Performed By: #### BMP #### [facility] [address] [place] [address] [address] Narendra Jerez nitrogen [Mass/Vol]15.0 mg/dLNormal7.0-18.0The Memorial Health SystemComment on above:Performed By: #### BMP #### [facility] [address] [place] [address] [address] Narendra FranksUrea nitrogen/Creatinine [Mass ratio]19.5 mg/mgNormalThe Memorial Health SystemComment on above:Performed By: #### BMP #### [facility] [address] [place] [address] [address] Narendra Mckinley RATE WESTERGRENon 85-49-8208FLN RATE25 mm/hrCritically high <=20The Memorial Health SystemComment on above:Performed By: #### SEDR #### [facility] [address] [place] [address] [address] Narendra Robb WITH REFLEX TO ENAon 49-11-0674ETF WITH REFLEX TO ENANegative NormalNEGATIVEBacharach Institute for RehabilitationComment on above:Performed By: #### CYNTHIA #### [facility] [address] [place], [place] [id number] PROTEINon 25-27-6981BUR [Mass/Vol]mg/LNormalBacharach Institute for RehabilitationComment on above:Result Comment: REF VALUE < 1.00Performed By: #### CRP #### [facility] [address] [place], [place] [address]ZBTRRFSSCD ANTIBODYon 70-44-3884DUPBBDOSAJ ANTIBODY<1NormalBacharach Institute for RehabilitationComment on above:Result Comment: THE TEST FOR ANTIBODIES [...] >=3 U/MLPerformed By: #### CITAB #### [facility] [address] [place], [place] [address]BNX-[id number] TYPINGon 47-32-3968HVA-B27 TYPINGNegativeNormalUH Trinitas HospitalComment on above:Result Comment: This test was developed without FDA review. The test performance characteristics were defined and validated by the [facility] Department of Pathology, under the accreditation guidelines of [facility].Performed By: #### HLB27 #### [facility] [address] [place], [place] [address]YQRQUJJXPB FACTORon 36-91-6203BJUAKKNANG FACTOR<19Gogogk7 - 15[facility] for RehabilitationComment on above:Performed By: #### RF #### [facility] [address] [place], [place] [address]HHVQMRDRGNZBH RATE, ERYTHROCYTEon 14-81-6329RUBXTROQSLXAL RATE, ERYTHROCYTE2 mm/hNormal0 - 20[facility] for RehabilitationComment on above: Performed By: #### ESRWS #### [facility] [address] [place] [address] Vital Signs Date TimeVital SignValuePerforming SbcaqolxcTuqqdpup74-52-9470 09:33-0400Body gktqig501.2 cmAnthony Cainher DPM Work Phone: [phone]08-11-2025 09:33-0400Body mass index (BMI) [Ratio]32.89 kg/l2Eeluura Rusher DPM Work Phone: [phone]08-11-2025 09:33-0400Body .25 kgAnthdaniel Rusher DPM Work Phone: [phone]01-23-2025 15:33-0500Diastolic blood cwsisdsu23 mm[Hg]Cynthia Caro MD Work Phone: [facility]01-23-2025 15:33-0500Heart rate 91 /minCynthia Caro MD Work Phone: [facility]01-23-2025 15:33-0500Systolic blood mbkybuyg821 mm[Hg]Cynthia Caro MD Work Phone: [facility]01-23-2025 15:31-0500Body iyjdqo360.2 Luis Caro MD Work Phone: [place] [employer] Huyrym14-64-2951 15:31-0500Body mass index (BMI) [Ratio]33.14 kg/z9JvqdzCynthia Caro MD Work Phone: [place] [employer] Jvzbgb95-67-5066 15:31-0500Body heqpeb73.98 kgCynthia Caro MD Work Phone: [facility]10-17-2024 10:09-0400Diastolic blood mm[Hg]Cynthia Caro MD Work Phone: [facility]10-17-2024 10:09-0400Heart rate 83 /minCynthia Caro MD Work Phone: [facility]10-17-2024 10:09-0400Systolic blood zxamxaok594 mm[Hg]Cynthia Caro MD Work Phone: [facility]10-17-2024 10:06-0400Body .2 Luis Caro MD Work Phone: [place] [employer] Ushkrh05-64-4662 10:06-0400Body mass index (BMI) [Ratio]32.69 kg/n7FcijtCynthia Caro MD Work Phone: [place] [employer] Suowpu52-00-5134 10:06-0400Body hynpnk35.67 kgCynthia Caro MD Work Phone: [facility]10-08-2024 11:10-0400Body mass index (BMI) [Ratio]32.58 kg/m2Sharon STEVENS Work Phone: [facility] HealthcareMcohytvhme59-72-6794 11:10-0400Body nonkle64.35 kgSharon STEVENS Work Phone: [facility] HealthcareGrwtulqxyf11-29-5422 11:10-0400Diastolic blood wqxupwsv05 mm[Hg]Sharon STEVENS Work Phone: [phone] [place], [place] [address]Bikskngwvd12-04-9118 11:10-0400Systolic blood nfzrunbu608 mm[Hg]Sharon Yo PA Work Phone: [facility] HealthcareFcvutepvql32-34-3028 11:30-0400Body yulnuw353.2 Rachell Yo PA Work Phone: [facility] HealthcareVpvzjjdxpv83-11-2405 11:30-0400Body mass index (BMI) [Ratio]32.26 kg/m2Sharon Yo PA Work Phone: [facility] HealthcareYfafwmvptm10-66-1810 11:30-0400Body inhwwb20.44 kgSharon Yo PA Work Phone: [facility] HealthcareZtpbmiddxl93-70-5234 11:30-0400Diastolic blood hmpfocwu32 mm[Hg]Sharon Yo PA Work Phone: [facility] HealthcareExsttzrrta23-86-7046 11:30-0400Systolic blood igylpibn284 mm[Hg]Sharon Yo PA Work Phone: [facility] HealthcareQpcqnbshdj18-86-6295 09:05-0400Body abqdre801.18 Matt Claros Other [employer] Other 09-09-2023 09:05-0400Body mass index (BMI) [Ratio] 29.19 kg/d2QajilValeria Claros Other [employer] Other 09-09-2023 09:05-0400Body lhuodajeaoq87.5 [degF]Valeria Claros Other [employer] Other 09-09-2023 09:05-0400Body nxtqzo85.55 kgValeria Claros Other [employer] Other 09-09-2023 09:05-0400Diastolic blood nejxioaj32 mm[Hg] Valeria Claros Other [employer] Other 09-09-2023 09:05-0400Respiratory rate18 /minValeria Claros Other [place] [employer] Other 09-09-2023 09:05-9929UhY6% (BldA) [Mass fraction]98 % Valeria Claros Other [employer] Other 09-09-2023 09:05-0400Systolic blood mm[Hg] Valeria Claros Other [facility] [employer] Other Encounters Encounter DateEncounter TypeCare ProviderFacilityStart: 07-26-2025 End: 23-73-8345dmkkfwuzjgNtbkqkd R NILLFacility:[facility] HealthcareevueStart: 07-26-2025 End: 71-42-0500Puydslf encounter procedureMichael R NILL [phone]-TcqfeMarietta [facility] Start: 26-73-3710tqaomlqvnuVxqovyz NILLFacility:[facility] HealthcareKrissytart: 05-08-2025 End: 44-06-9657Dqjgiu flowsheetAnthony S Rusher DPM Work Phone: [facility]St[facility] PodiatryStart: 05-08-2025 End: 91-74-4908Yegysz flowsheetAnthony S Rusher DPM Work Phone: noWalletKit [place] PodiatryStart: 05-08-2025 End: 34-70-1388Cspwcn outpatient new 30 minutesAnthony S Rusher DPM Work Phone: noSt. Mary[facility] PodiatryComment on above:Valgus deformity, not elsewhere classified, left ankle (Primary Dx); Posterior tibial tendinitis of left lower extremity; Posterior tibial tendinitis of right lower extremity; Instability of left ankle joint; Equinus contracture of left ankle; Difficulty walking; Sinus tarsi syndrome of left footStart: 05-08-2025 End: 00-30-7692jncqtrsrtaQRMKNCX S RUSHERNot AvailableStart: 10-20-2024 End: 87-84-1320Onwwpe outpatient visit 25 minutesCynthia Caro MD Work Phone: [facility] Comment on above:Autosomal dominant polycystic kidney disease (Primary Dx)Start: 10-19-2024 End: 81-86-1628Phjglhsst encounterScanning Provider [facility]N [facility] CenteroStart: 10-14-2024 End: 02-92-5671Qhxeralcb encounterBropearl Tena [facility] CenteroStart: 10-11-2024 End: 76-87-7203bxevcsywjbLWZOOVi [facility] HospitalStart: 07-19-2024 End: 73-85-9424asccfzmrwmKRYOLRyan [facility]OMer[facility] HospitalStart: 07-14-2024 End: 88-79-8036Nohcer outpatient new 45 Rosalba Caro MD Work Phone: [facility] Comment on above:Autosomal dominant polycystic kidney disease (Primary Dx); PKD (polycystic kidney disease)Start: 07-13-2024 End: 60-91-1755lcxdanaycfFNGWEVi [facility]OMer[facility] HospitalStart: 07-06-2024 End: 60-65-7081Nxmmbhsfj encounterHuma Tena [facility] CenteroStart: 07-05-2024 End: 68-64-0473Xkaibg Diego STEVENS Work Phone: noMS BCP OBStart: 07-05-2024 End: 99-63-5379Dblvpr Diego STEVENS Work Phone: [facility] BCP OBStart: 07-05-2024 End: 25-92-7001Suahxjkzr Result Justino STEVENS Work Phone: NOUW External Department UnsolicitedStart: 07-05-2024 End: 47-84-2412Ajdnbtw encounter procedureSharno STEVENS Work Phone: NOC[facility] HealthcareStart: 07-05-2024 End: 50-43-0204Dlbnprum preventive med est patient 18-39 yrsSharon STEVENS Work Phone: noms BCP OBComment on above:Well woman exam with routine gynecological examStart: 07-05-2024 End: 54-49-1348tlbwxhrftsKKB RAMEYNot AvailableStart: 05-17-2024 End: 19-37-9730umdoqtpekcHFU RAMEYNot AvailableStart: 05-17-2024 End: 43-26-0586Gpcmhouotk care visitSharon STEVENS Work Phone: noms BCP OBComment on above:6 weeks follow- up (Primary Dx)Start: 04-21-2024 End: 10-12-5795Waxcgy Kelvin Caro MD Work Phone: [facility] Comment on above:PKD (polycystic kidney disease) (Primary Dx)Start: 04-18-2024 End: 75-13-1826Vjbiuxyhm encounterScanning Provider ExternalPHN [facility] Centertart: 03-30-2024 End: 43-31-5369Hwdvoesei Result EncounterCorey Shantell DO Work Phone: noms External Department UnsolicitedStart: 03-30-2024 End: 06-92-1214Zedyoiekn Result EncounterCorey Shantell DO Work Phone: noms External Department UnsolicitedStart: 03-23-2024 End: 64-55-5276Vwngcftto Result EncounterCorey Shantell DO Work Phone: noms External Department UnsolicitedStart: 03-23-2024 End: 27-26-1292Kstybeyjc Result EncounterCorey Shantell DO Work Phone: noms External Department UnsolicitedStart: 03-16-2024 End: 16-05-1897Ebnxlrncr Result EncounterCorey Shantell DO Work Phone: noms External Department UnsolicitedStart: 03-16-2024 End: 68-21-5998Fqozqkcrv Result EncounterCorey Shantell DO Work Phone: noms External Department UnsolicitedStart: 03-01-2024 End: 18-78-6981Rmityrmzj Result EncounterCorey Shantell DO Work Phone: noms External Department UnsolicitedStart: 03-01-2024 End: 02-02-8468Ouvaigacf Result EncounterCorey Shantell DO Work Phone: noms External Department UnsolicitedStart: 12-17-2023 End: 83-97-7686Caqkbqkay Result EncounterCorey Shantell DO Work Phone: noms External Department UnsolicitedStart: 12-17-2023 End: 61-87-1441Tlxqwdyxp Result EncounterCorey Shantell DO Work Phone: noms External Department UnsolicitedStart: 09-19-2023 End: 96-67-7839Yphmozncg Result EncounterCorey Shantell DO Work Phone: noms External Department UnsolicitedStart: 09-19-2023 End: 25-62-0159Rlebwngru Result EncounterCorey Shantell DO Work Phone: noms External Department UnsolicitedStart: 06-06-2023 End: 64-30-7670adjtxjsfavHmnzu Keller Other [facility] [employer] Other Start: 86-81-7667Tyxusv outpatient new 20 minutesAmber HarlanFPG Urgent Care ClydeStart: 12-17-2022 End: 00-29-5503caitifqhmrQZ JUAN C SHANTELL .Facility:C2Quhox: 06-26-2022 End: 00-61-0472yxjjdgsylkOK NONE LISTED REQUESTFacility:H1 Procedures DateProcedureProcedure DetailPerforming ClinicianStart: 05-08-2025 End: 82-37-0409Mqvrshnrjo examination ankle 2 viewsAnthony S Rusher DPM Work Phone: Start: 92-06-8428Stzulpyfok examination ankle 2 views Db Crockett DPM Work Phone: Start: 02-09-4051SNU,APTIMA HPV,AGE GDLNAmy Alex PA Work Phone: Start: 91-53-0327Xditamargkf observation [Identifier] in Cervix by Cyto Nasim Caro MD Work Phone: Start: 86-49-5673BRT URINE T PROTEIN CREAT RATIOCorey Shantell DO Work Phone: Start: 44-85-0673FWG BUNCorey Shantell DO Work Phone: Start: 01-34-0631GTO CBC WITH AUTO DIFFCorey Shantell DO Work Phone: Start: 43-65-4210JHZ URIC ACIDCorey Shantell DO Work Phone: Start: 44-01-6998NXB ALTCorey Shantell DO Work Phone: Start: 93-77-1040GOU APTTCorey Shantell DO Work Phone: Start: 32-45-2018ACZ ASTCorey Shantell DO Work Phone: Start: 92-68-8740JPGP FIBRINOGENCorey Shantell DO Work Phone: Start: 04-86-8521JCVOWU PROTHROMBIN TIME INR W/O COUM Juan C Shantell DO Work Phone: Start: 17-29-6647EUA CREATININECorey Shantell DO Work Phone: Start: 01-30-3880YDB DRUG SCREEN RAPID (URINE)Juan C Shantell DO Work Phone: Start: 29-98-7073ZM OB GROWTHCorey Shantell DO Work Phone: Start: 38-43-7625GD OB BPP W NON-STRESSCorey Shantell DO Work Phone: Start: 69-99-3785RJ OB BPP W NON-STRESSCorey Shantell DO Work Phone: Start: 07-57-2281CJ OB BPP W NON-STRESSCorey Shantell DO Work Phone: Start: 08-94-2069WE OB GROWTHCorey Shantell DO Work Phone: Start: 56-36-2502WG OB ANATOMYCorey Shantell DO Work Phone: Start: 55-38-3655OJ OB CERVICAL LENGTHCorey Shantell DO Work Phone: Start: 23-98-6304AZ OB TRANSVAGINALCorey Shantell DO Work Phone: Start: 09-41-4291PnjrtgvabuzWllvrlo NILL Start: 23-02-8735UkzgeaktwjsselztksdcfkcgzjIynxgnd NILL Excision of lipoma of backMichael NILL LaparoscopyMichael NILL Tonsillectomy and adenoidectomyMichael NILL Plan of Treatment DateCare ActivityDetailAuthorStart: 32-82-4562CFlM,Tdap and Td Vaccines (2 - Tdap)DTaP,Tdap and Td Vaccines (2 - Tdap)[facility] SystemStart: 24-33-9976Cxkserybx for malignant neoplasm of cervixPap SmearProMedica Eurotri SystemStart: 08-09-2025 End: 79-27-4678Ybcwint encounter xsuiqmzac26/12/2025 3:00 PM EST Procedure Visit [facility] [address] [place] [id number] Sharon Yo PA [address] [place] [address] JOSE Elkins OBGYNStart: 87-77-8031Virts BMI ScreeningAdult BMI ScreeningFirstHealth Moore Regional Hospital - Hoketart: 05-08-2025 End: 86-76-2221Jrglfspzaxqd / ancillary services managementNOSt. Mary's Hospital [facility]iatry Start: 05-08-2025 End: 26-68-1959Cioybrd encounter ykhoengia52/11/2025 9:30 AM EDT Office Visit [facility] [address] [place] [address] Db Crockett, DPSamuel [address] [place] [address] ArrivedNOSt. Mary's Hospital PodiatryComment on above:ArrivedStart: 04-14-2025 End: 81-98-2914Mqnjg metabolic 2000 panel - Serum or PlasmaBasic Metabolic Panel Lab Routine Autosomal dominant polycystic kidney disease Expected: 04/14/2025 (Approximate), Expires: 10/15/2025[facility] Work Phone: Comment on above:Expected: 04/14/2025 (Approximate), Expires: 10/15/2025Start: 04-14-2025 End: 67-39-0619IQM panel - Blood by Automated countCBC without diff Lab Routine Autosomal dominant polycystic kidney disease Expected: 04/14/2025 (Approximate), Expires: 10/15/2025[facility] SystemComment on above:Expected: 04/14/2025 (Approximate), Expires: 10/15/2025Start: 04-14-2025 End: 97-16-2019Rwcuuucpd [Mass/volume] in Serum or PlasmaMagnesium Lab Routine Autosomal dominant polycystic kidney disease Expected: 04/14/2025 (Approximate), Expires: 10/15/2025[facility] SystemComment on above:Expected: 04/14/2025 (Approximate), Expires: 10/15/2025Start: 04-14-2025 End: 57-25-3846Lhrnppbsbds Hormone, intactParathyroid Hormone, intact Lab Routine Autosomal dominant polycystic kidney disease Expected: 04/14/2025 (Approximate), Expires: 10/15/2025[facility] SystemComment on above: Expected: 04/14/2025 (Approximate), Expires: 10/15/2025Start: 04-14-2025 End: 14-55-3422Cmzbvrouk [Mass/volume] in Serum or PlasmaPhosphorus Lab Routine Autosomal dominant polycystic kidney disease Expected: 04/14/2025 (Approximate), Expires: 10/15/2025[facility] SystemComment on above:Expected: 04/14/2025 (Approximate), Expires: 10/15/2025Start: 04-14-2025 End: 26-00-7818Hhfuqny creat ratioProtein creat ratio Lab Routine Autosomal dominant polycystic kidney disease Expected: 04/14/2025 (Approximate), Expires: 10/15/2025[facility] SystemComment on above:Expected: 04/14/2025 (Approximate), Expires: 10/15/2025Start: 04-14-2025 End: 77-19-5798Ytkjtaj D 25 hydroxyVitamin D 25 hydroxy Lab Routine Autosomal dominant polycystic kidney disease Expected: 04/14/2025 (Approximate), Expires: 10/15/2025[facility] SystemComment on above:Expected: 04/14/2025 (Approximate), Expires: 10/15/2025Start: 10-20-2024 End: 80-82-6872Lmeimcv encounter tpegovgoc34/23/2025 3:30 PM EST Office Visit [facility] [address] [place] [id number] Cynthia Caro MD [address] [place] [address] [facility] Centertart: 09-08-2024 End: 46-03-9726Vqibs metabolic 2000 panel - Serum or PlasmaBasic Metabolic Panel Lab Routine Autosomal dominant polycystic kidney disease Expected: 09/08/2024, Expires: 07/09/2025[facility] CenterComment on above:Expected: 09/08/2024, Expires: 07/09/2025Start: 09-08-2024 End: 34-83-7729JVC panel - Blood by Automated countCBC without diff Lab Routine Autosomal dominant polycystic kidney disease Expected: 09/08/2024, Expires: 07/09/2025[facility] CenterComment on above:Expected: 09/08/2024, Expires: 07/09/2025Start: 09-08-2024 End: 41-26-6847Zifftsbzf [Mass/volume] in Serum or PlasmaMagnesium Lab Routine Autosomal dominant polycystic kidney disease Expected: 09/08/2024, Expires: [facility] CenterComment on above:Expected: 09/08/2024, Expires: 07/09/2025Start: 09-08-2024 End: 31-09-7716Yukcojwcykw Hormone, intactParathyroid Hormone, intact Lab Routine Autosomal dominant polycystic kidney disease Expected: 09/08/2024, Expires: 07/09/2025[facility] CenterComment on above:Expected: 09/08/2024, Expires: 07/09/2025Start: 09-08-2024 End: 27-46-0334Nrfbebpba [Mass/volume] in Serum or PlasmaPhosphorus Lab Routine Autosomal dominant polycystic kidney disease Expected: 09/08/2024, Expires: 1 [facility] CenterComment on above:Expected: 09/08/2024, Expires: 07/09/2025Start: 09-08-2024 End: 51-62-2594Geyhohk creat ratioProtein creat ratio Lab Routine Autosomal dominant polycystic kidney disease Expected: 09/08/2024, Expires: 07/09/2025 [facility] CenterComment on above:Expected: 09/08/2024, Expires: 07/09/2025Start: 09-08-2024 End: 72-16-0496Rdlncgt D 25 hydroxyVitamin D 25 hydroxy Lab Routine Autosomal dominant polycystic kidney disease Expected: 09/08/2024,Expires: 07/09/2025 [facility] SystemComment on above:Expected: 09/08/2024, Expires: 07/09/2025Start: 07-21-2024 End: 40-87-4992RVL Abdominal vessels WO contrastMRA abdomen without contrast Imaging Routine Autosomal dominant polycystic kidney disease Expected:07/21/2024 (Approximate), Expires: 07/14/2025[facility] SystemComment on above: Expected: 07/21/2024 (Approximate), Expires: 07/14/2025Start: 07-16-2024 End: 87-75-9524NOA Screen w/ ReflexANA Screen w/ Reflex Lab Routine Autosomal dominant polycystic kidney disease Expected: 07/16/2024 (Approximate), Expires: 07/09/2025[facility] SystemComment on above:Expected: 07/16/2024 (Approximate), Expires: 07/09/2025Start: 07-16-2024 End: 05-43-9082Acco light chainsFree light chains Lab Routine Autosomal dominant polycystic kidney disease Expected: 07/16/2024 (Approximate), Expires: 07/09/2025[facility] SystemComment on above:Expected: 07/16/2024 (Approximate), Expires: 07/09/2025Start: 07-16-2024 End: 12-78-6291Zjuwjxptqw basement membrane IgG ABGlomerular basement membrane IgG AB Lab Routine Autosomal dominant polycystic kidney disease Expected: 07/16/2024 (Approximate), Expires: 07/09/2025[facility] SystemComment on above:Expected: 07/16/2024 (Approximate), Expires: 07/09/2025Start: 07-16-2024 End: 48-92-8861Iuembftlo B core antibody, totalHepatitis B core antibody, total Lab Routine Autosomal dominant polycystic kidney disease Expected:07/16/2024 (Approximate), Expires: 07/09/2025[facility] SystemComment on above: Expected: 07/16/2024 (Approximate), Expires: 07/09/2025Start: 07-16-2024 End: 06-75-6531Nqnyxdplb B Surface Antibody QuantitationHepatitis B Surface Antibody Quantitation Lab Routine Autosomal dominant polycystic kidney disease E xpected: 07/16/2024 (Approximate), Expires: 07/09/2025[facility] Comment on above:Expected: 07/16/2024 (Approximate), Expires: 07/09/2025Start: 07-16-2024 End: 05-37-6137Lzzvzyrms B surface antigenHepatitis B surface antigen Lab Routine Autosomal dominant polycystic kidney disease Expected: 07/16/2024 (Approximate), Expires: 07/09/2025[facility] SystemComment on above: Expected: 07/16/2024 (Approximate), Expires: 07/09/2025Start: 07-16-2024 End: 77-18-6870Wksbizvds C(HCV) Ab w/ Reflex to PCRHepatitis C(HCV) Ab w/ Reflex to PCR Lab Routine Autosomal dominant polycystic kidney disease Expected: 07/16/2024 (Approximate), Expires: 07/09/2025[facility] SystemComment on above:Expected: 07/16/2024 (Approximate), Expires: 07/09/2025Start: 07-16-2024 End: 49-44-9558OSE 1&2 AB/AG Screen (P24 AG)HIV 1&2 AB/AG Screen (P24 AG) Lab Routine Autosomal dominant polycystic kidney disease Expected: 07/16/2024 (Approximate), Expires: 07/09/2025[facility] SystemComment on above: Expected: 07/16/2024 (Approximate), Expires: 07/09/2025Start: 07-16-2024 End: 94-81-7833Mjzchuotvgddrqk ABMyeloperoxidase AB Lab Routine Autosomal dominant polycystic kidney disease Expected: 07/16/2024 (Approximate), Expires: 07/09/2025[facility] SystemComment on above:Expected: 07/16/2024 (Approximate), Expires: 07/09/2025Start: 07-16-2024 End: 89-43-2376Zkfljvneev 3 AB ZR4Quetzjpgtw 3 AB PR3 Lab Routine Autosomal dominant polycystic kidney disease Expected: 07/16/2024 (Approximate), Expires: 07/09/2025[facility] SystemComment on above:Expected: 07/16/2024 (Approximate), Expires: 07/09/2025Start: 07-16-2024 End: 93-38-5021ZI RetroperitoneumUltrasound retroperitoneal complete Imaging Routine Autosomal dominant polycystic kidney disease Expected: 07/16/2024 (Approximate), Expires: 09/08/2024[facility] Work Phone: Comment on above:Expected: 07/16/2024 (Approximate), Expires: 09/08/2024Start: 07-14-2024 End: 49-90-8593Ajucpdp encounter procedurePHN [facility] FremontStart: 07-05-2024 End: 58-52-0539Thegqzs encounter procedureNOMS BCP OBComment on above:Arrived Start: 23-31-4522Sfvwrywxa vaccinationInfluenza VaccineUniversity Hospitals Lake West Medical Center Start: 89-37-7636Vqilyozkm for malignant neoplasm of cervixPap SmearMiddletown Hospital SystemStart: 53-47-3384CFuH,Tdap and Td Vaccines (1 - Tdap)DTaP,Tdap and Td Vaccines (1 - Tdap)[facility]oketart: 69-40-4286Hhngw BMI Follow Up PlanAdult BMI Follow Up PlanFirstHealth Moore Regional Hospital - Hoketart: 60-73-7578Clwby BMI ScreeningAdult BMI ScreeningFirstHealth [facility] Hospital - Hoketart: 24-50-5596Emhsbpzbow ScreeningDepression ScreeningFirstHealth Moore Regional Hospital - Hoketart: 04-88-6701Jpbthof ScreeningTobacco ScreeningUniversity Hospitals Lake West Medical Center End: 80-40-2740Mycka metabolic 2000 panel - Serum or PlasmaBasic Metabolic Panel Lab Routine PKD (polycystic kidney disease) 1 Occurrences starting 04/21/2024 until 04/21/2025[facility] Work Phone: Comment on above:1 Occurrences starting 04/21/2024 until 04/21/2025 End: 24-78-0963KKK panel - Blood by Automated countCBC without diff Lab Routine PKD (polycystic kidney disease) 1 Occurrences starting 04/21/2024 until 04/21/2025[facility] SystemComment on above:1 Occurrences starting 04/21/2024 until 04/21/2025ytology Cervical or vaginal smear or scraping study Pap Smear Pathology and Cytology Routine Well woman exam with routine gynecological exam Ordered: 07/05/2024[facility] [employer] Work Phone: comment on above:Ordered: 07/05/2024 End: 82-25-0832Jamxvkkhxqo Neutrophilic Ab, SCytoplasmic Neutrophilic Ab, S Lab Routine Autosomal dominant polycystic kidney disease 1 Occurrences starting 07/14/2024 until 07/09/2025[facility] SystemComment on above:1 Occurrences starting 07/14/2024 until 07/09/2025 End: 35-87-5175Rbpsvhbyi [Mass/volume] in Serum or PlasmaMagnesium Lab Routine PKD (polycystic kidney disease) 1 Occurrences starting 04/21/2024 until 2024ProGuernsey Memorial HospitalComment on above:1 Occurrences starting 04/21/2024 until 04/21/2025 End: 16-48-0544Vrynqdooa [Mass/volume] in Serum or PlasmaPhosphorus Lab Routine PKD (polycystic kidney disease) 1 Occurrences starting 04/21/2024 until 04/21[facility] SystemComment on above:1 Occurrences starting 04/21/2024 until 04/21/2025 End: 80-26-9361Mzbmame creat ratioProtein creat ratio Lab Routine PKD (polycystic kidney disease) 1 Occurrences starting 04/21/2024 until 04/21/2025 [facility] SystemComment on above:1 Occurrences starting 04/21/2024 until 04/21/2025 End: 77-59-8083Enqto ImmunofixationSerum Immunofixation Lab Routine Autosomal dominant polycystic kidney disease 1 Occurrences starting 07/14/2024 until 07/09/2025[facility] SystemComment on above:1 Occurrences starting 07/14/2024 until 07/09/2025 End: 33-37-9917HsxycpybqaPqrxjaqoyr Lab Routine Autosomal dominant polycystic kidney disease 1 Occurrences starting 10/20/2024 until 10/15/2025ProR[facility] SystemComment on above:1 Occurrences starting 10/20/2024 until 10/15/2025 End: 19-21-0553HbaytjkcyiCwyclisusr Lab Routine PKD (polycystic kidney disease) 1 Occurrences starting 04/21/2024 until 04/21/2025ProRiverside Methodist Hospital SystemComment on above:1 Occurrences starting 04/21/2024 until 04/21/2025 End: 80-44-3272DokthyeauhOkjnnmgvls Lab Routine Autosomal dominant polycystic kidney disease 1 Occurrences starting 07/14/2024 until 07/09/2025ProR[facility] SystemComment on above:1 Occurrences starting 07/14/2024 until 07/09/2025 Immunizations Immunization DateImmunizationNotesCare QrteiojpByodwvmx98-80-1535vszundhah virus vaccine, unspecified formulationCynthia Caro MD Work Phone: [facility] Payers DatePayer CategoryPayerPolicy [id number] Health Insurance [id number] Health Insurance [id number] Cross Blue Shield Managed Care - [place] [address] [id number] [id number]7702-05-6105Yfmwyph 1.2.840.393723.1.13.693.2.7.3.622[id number] 2.16.840.1.089314.3.57[id number] 2.16.840.1.655343.3.57[id number] 2.16.840.1.873686.3.57[id number] 2.840.1.442821.3.57[id number] 2.16.840.1.378942.3.57[id number] 2.16.840.1.591816.3.57[id number] 2.840.1.770800.3.57[id number] 2.16840.1.324551.3.57[id number] 2.16.840.1.367589.3.57[id number] 2.16840.1.750509.3.579.2.049867-61-8429Izzkxjy5506336 2.840.1.502138.3.579.2.[id number] [id number] Social History DateTypeDetailFacilityUnknown if ever smokedNoWyutex Oil and Gas Other Start: 09-14-2023 End: 01-66-7692Wjk [facility]igned At [facility] Centertart: 09-09-2023 End: 82-22-1064Pypbrqs smoking status NHISNever smoked tobaccoJORDAN [facility] Start: 93-87-6126Ripmfpd use and exposureSmokeless tobacco non-userNOMS HealthcareStart: 03-15-2024 End: 37-88-6733Qkkiyieuv beverage intakeEx-drinker (finding)[facility] Start: 09-14-2023 End: 47-55-3266Uyglzct of Social functionNOMS HealthcareStart: 37-55-5873Mazaqak CommentOnly on special occasionsNOMS HealthcareStart: 36-37-4703Uoq assigned at [facility] baptistNot on fileUniversity Hospitals Lake West Medical CenterTobacc smoking status NHISTobacco smoking consumption unknownMiddletown Hospital SystemStart: 03-99-8176AbpDrldmy (finding)[place] [facility] SystemStart: 76-41-0104Clxowfa smoking statusNever [facility] General Surgery [facility] Hospitalexual OrientationMadison Health Surgery [place] Start: 08-23-2023 End: 32-67-8078Fpbzmzfk to SARS-CoV-2 (event)[facility] Clinical Notes 06-06-2023 to 07-26-2025 Note Date & SxulDgkoKwwuolxn30-09-0526 NoteGeneral Surgery Office/Clinic Note Chief Complaint consultation [...] Mother. Polycystic kidney disease: Mother. Rheumatoid arthritis: Mother.[facility] CenterComment on above:Result Comment: Electronically Signed By: SITA RUVALCABA, Yessenia Sanchez\Date and Time Signed: 07/26/25 16:00 [id number] History of Present illness Narrative* Db Crockett [...] 30-39.9) Other specified related conditions, unspecified trimester ([facility]) Ovarian cyst PCK (polycystic kidney [...] stresses across the midfoot. Patient has an eaoh-kyh-qqdigvd insert in her shoe today that is [...] understanding. Db Crockett DPM documented in this encounterCitizens Memorial HealthcareLwyxnyztlj58-09-7289 History of Present illness Narrative* Cynthia Caro [...] at home; her home blood pressures are risk control representative of the blood pressures that were [...] results found for: IRONSAT , FERRITIN , [id number] , FOLATE [facility]: Lab [...] of your patients! Please contact me at [phone] (Office) or [phone] (Answering service) with any questions. CYNTHIA CARO MD [facility] This note was created with the assistance of a speech-recognition program. Although the intention is to generate a document that actually reflects the content of the visit, no guarantees can be provided that every mistake has been identified and corrected by editing. CYNTHIA CARO MD,PhD FACP [facility] ANY QUESTIONS FEEL FREE TO CALL: 1. OFFICE [phone] 2. ANSWERING SERVICE: [phone] documented in this encounterUniversity Hospitals Lake West Medical Center01-22-2025 Miscellaneous Notes* Telephone Encounter - Eva Moura - 10/19/2024 11:48 AM EST LM to see if pt could come in at 8:30 am tomorrow instead of 3:30 pm. documented in this encounterUniversity Hospitals Lake West Medical Center01-22-2025 Telephone encounter Note* Telephone Encounter - Eva Moura - 10/19/2024 11:48 AM EST LM to see if pt could come in at 8:30 am tomorrow instead of 3:30 pm. [facility]01-17-2025 Miscellaneous Notes* Telephone Encounter - Huma Tena CMA - 10/14/2024 3:33 PM EST Left message for patient to call the office back to confirm upcoming appointment 10/20 at 3:[address] Caro in [place] documented in this [facility]01-17-2025 Telephone encounter Note* Telephone Encounter - Huma Tena CMA - 10/14/2024 3:33 PM EST Left message for patient to call the office back to confirm upcoming appointment 10/20 at 3:[address] Caro in [place] [facility] [id number] History of Present illness Narrative* Cynthia Caro [...] results found for: IRONSAT , FERRITIN , [id number] , FOLATE [facility]: Lab [...] of your patients! Please contact me at [phone] (Office) or [phone] (Answering service) with any questions. CYNTHIA CARO MD [facility] This note was created with the assistance of a speech-recognition program. Although the intention is to generate a document that actually reflects the content of the visit, no guarantees can be provided that every mistake has been identified and corrected by editing. CYNTHIA CARO MD,PhD FACP [facility] ANY QUESTIONS FEEL FREE TO CALL: 1. OFFICE [phone] 2. ANSWERING SERVICE: [phone] documented in this encounterSumma Health Wadsworth - Rittman Medical CenternumberFire Corewell Health Pennock HospitalKtwdnl28-20-5577 Miscellaneous Notes* Telephone Encounter - Huma Tena CMA - 07/06/2024 4:02 PM EDT Left voicemail for patient to return call to confirm upcoming appointment on 07/14 at 10:[address] Caro in [place] and Informed patient lab work need completed prior to uncoming appointment * Telephone Encounter - Eva Moura - 07/06/2024 4:02 PM EDT Pt called back and confirmed appt. Nephro- Delashi? ([facility] probably 5 or more years ago) Other Spec- No Echo- [place] possibly Abd Img- No Labs- Going to [facility] 07/13/24 Reminders- Given documented in this encounterUniversity Hospitals Lake West Medical Center10-09-2024 Telephone encounter Note* Telephone Encounter - Huma Tena CMA - 07/06/2024 4:02 PM EDT Left voicemail for patient to return call to confirm upcoming appointment on 07/14 at 10:[address] Caro in [place] and Informed patient lab work need completed prior to uncoming appointment [facility]10-09-2024 Telephone encounter Note* Telephone Encounter - Eva Moura - 07/06/2024 4:02 PM EDT Pt called back and confirmed appt. Nephro- Delashi? ([facility] probably 5 or more years ago) Other Spec- No Echo- [place] possibly Abd Img- No Labs- Going to [facility] 07/13/24 Reminders- Given [facility]10-08-2024 History of Present illness Narrative* HILDA Rebolledo [...] nursing note reviewed. Exam conducted with a branch lending manager present. Vitals: Estimated body mass index is [...] behalf of: HILDA Rebolledo documented in this encounterCitizens Memorial HealthcareEqvrlxojxk30-76-5662 History of Present illness Narrative* HILDA Rebolledo [...] behalf of: HILDA Rebolledo documented in this encounterCitizens Memorial HealthcareTpcbxectfw97-48-2353 Miscellaneous Notes* Telephone Encounter - Eva Moura - 04/18/2024 9:31 AM EDT LM to schedule new pt appt. documented in this encounterUniversity Hospitals Lake West Medical Center07-22-2024 Telephone encounter Note* Telephone Encounter - Eva Zeny - 04/18/2024 9:31 AM EDT LM to schedule new pt appt. [facility]06-04-2024 Miscellaneous Notes* Result Encounter Note - Randi Arteaga LPN - 03/01/2024 12:47 PM EDT Pt notified and is going to schedule growth scan for two weeks. She is also going to schedule for NST/BPP documented in this encounterCitizens Memorial HealthcareJihjgugvwk03-22-1768 Progress note* Result Encounter Note - Randi Arteaga LPN - 03/01/2024 12:47 PM EDT Pt notified and is going to schedule growth scan for two weeks. She is also going to schedule for NST/BPP [facility] [employer] Work Phone: 1(396) 169-757309-09-2023 Evaluation note* Encounter Date Diagnosis Assessment Notes [...] understanding and is agreeable with treatment plan [facility] Other Evaluation note* Diagnosis Well woman exam with routine gynecological exam Routine gynecological examination documented in this encounter [facility] HealthcareEvaluation note* Diagnosis 6 weeks follow-up- Primary [...] removed off backSurgical Historywisdom teeth extract Surgical Dltiscwdhlroixmeawl6546Vfeenglk Vwjxcqsjatpbupfvdg8212Qjixjhvqpugrvdv HistoryHTNHospitalization HistorymigraineHospitalization Historychild nmpio2620 [facility] Other Hospital course Narrative No data available for this section [facility] [place] [facility] Discharge instructions No data available for this section [facility] [place] InstructionsNot on filedocumented in this encounter [facility] SystemInstructionsNot on filedocumented in this encounter [facility] SystemInstructionsNot on filedocumented in this encounter [facility] SystemProgress note No data available for this section [facility] [place] Reason for visit Narrative* Consultation (Routine) - Pending ReviewSpecialtyDiagnoses / ProceduresReferred By ContactReferred To ContactNephrology Diagnoses PKD (polycystic kidney disease) Jay Sadler MD Phone: tel:[phone] fax: PHN [facility] [address] [place] [address] Phone: tel: fax: Referral IDStatusReasonStart DateExpiration DateVisits RequestedVisits [id number] Review Specialty Services Required [facility] Summary Purpose Family History No Family History [...] section and content) DATE CREATED AUTHOR 07/19/2019 [facility] DATE CREATED AUTHOR AUTHOR'S ORGANIZ ATION 12/29/2022 [facility] DATE CREATED AUTHOR AUTHOR'S ORGANIZ ATION 10/15/2024 [facility] DATE CREATED AUTHOR AUTHOR'S ORGANIZ ATION 05/09/2025 [facility] DATE CREATED AUTHOR AUTHOR'S ORGANIZ ATION 07/28/2025 [facility] REASON FOR VISIT (unrecogniz ed [...] DateEnd Date Jay Sadler MD [address] [place] [address] PCP - GeneralFamily Ugeidxse44/2/23Team MemberRelationshipSpecialtyStart DateEnd Date Jay Sadler MD [address] [place] [facility] [place] [address] PCP - GeneralFamily Ebsyhjsq39/2/23Team MemberRelationshipSpecialtyStart DateEnd Date Jay Sadler MD [address] [place] [facility] [place] [address] PCP - GeneralFamily Jhqeumcd45/2/23Team MemberRelationshipSpecialtyStart DateEnd Date Jay Sadler MD [address] [place] [facility] [place] [address] PCP - GeneralFamily Scionyph35/2/23Team MemberRelationshipSpecialtyStart DateEnd Date Jay Sadler MD [address] [facility] [place] [address] PCP - GeneralFamily Dmjdqlyz03/16/24Team MemberRelationshipSpecialtyStart Date End Date Jay Sadler MD [address] [facility] [place] [address] PCP - GeneralFamily Whpugyjw97/16/24Team MemberRelationshipSpecialtyStart Date End Date Jay Sadler MD [address] [facility] [place] [address] PCP - GeneralFamily Waoywdwd34/16/24Team MemberRelationshipSpecialtyStart Date End Date Jay Sadler MD [address] [facility] [place] [address] PCP - GeneralFamily Vjopsnxi02/16/24Team MemberRelationshipSpecialtyStart Date End Date Jay Sadler MD [address] [place] [facility] [place] [address] PCP - GeneralmiLifeBrite [facility]04/19/25Team MemberRelationshipSpecialtyStart DateEnd Date Jay Sadler MD [address] [place] [facility] [place] [address] PCP - [facility]04/19/25Team MemberRelationshipSpecialtyStart DateEnd Date Jay Sadler MD [address] [place] [facility] [place] [address] PCP - [facility]04/19/25Team MemberRelationshipSpecialtyStart DateEnd Date Jay Sadler MD [address] [place] [facility] [place] [address] PCP - [facility]04/19/25Team MemberRelationshipSpecialtyStart DateEnd Date Jay Sadler MD [address] [place] [facility] [place] [address] PCP - [facility]04/19/25 FOR RECORDS PERTAINING TO PATIENTS WHO ARE [...] BE BASED ON THE PRIMARY CLINICAL RECORDS. [facility] Health CenterBallista Securities [facility]. provides no warranty or guarantee of the accuracy or completeness of information in this document.
[2025-08-30 07:10] VITALS: BP 167/117; PULSE 95; TEMP 36.3; O2SAT 97; BMI 31.5
[2025-08-30 08:33] VITALS: BP 142/94; PULSE 77; TEMP 36.2; O2SAT 99
[2025-08-30 08:48] VITALS: BP 140/92; PULSE 68
[2025-08-30 09:03] VITALS: BP 136/99; PULSE 66; O2SAT 100
--- NOTE | 2025-08-30 09:15 | PC.NURSE ---
(0006) Spoke with patient and pateint's about elevated blood pressure. Encouraged patient to follow up with family doctor about elevated blood pressure. Told patient to go to the ER for headaches, blurred vision and slurred speech. Both verbalized a understanding.
== END 2025-08-30 09:03 | disposition home or self-care (01) ==
PROVIDERS: Anesthesiology; PCP Family Medicine; Visit Provider Surgery
PROC: (CPT 00811; principal; 2025-08-30 08:05)
DX: K62.5 Hemorrhage of anus and rectum (principal); R10.31 Right lower quadrant pain; K62.89 Other specified diseases of anus and rectum; K21.9 Gastro-esophageal reflux disease without esophagitis; I10 Essential (primary) hypertension; Q61.3 Polycystic kidney, unspecified; G47.33 Obstructive sleep apnea (adult) (pediatric); F41.9 Anxiety disorder, unspecified
CPT/HCPCS: 00811; 45380; 36415; 84703; 88305; 88341; 88342; 88360; J2704